=== PATIENT | male | born 1950 | race Caucasian/White ===

== ENCOUNTER 2018-05-04 13:47 | Inpatient (IN) | payer MEDICARE, MEDICAID ==
[~2018-05-04] VITALS: Ht 182.9 cm; Wt 112.2 kg
[2018-05-04 15:34] LABS: BASO % 0.4 % (0.0-1.0); EOS # 0.1 10^3/uL (0.0-0.50); EOS % 0.7 % (0.0-3.0); HEMATOCRIT 44.1 % (42.0-52.0); HEMOGLOBIN 15.1 g/dl (13.5-17.5); LYMPH # 0.7 10^3/uL (1.5-4.5); LYMPH % 6.6 % (24.0-44.0); MEAN CORPUSCULAR HEMOGLOBIN 29.5 pg (27.0-33.0); MEAN CORPUSCULAR HGB CONC 34.2 g/dl (32.0-36.5); MEAN CORPUSCULAR VOLUME 86.3 fl (80.0-96.0); MONO # 0.9 10^3/uL (0.0-0.8); MONO % 8.5 % (0.0-5.0); NEUTROPHILS % 83.3 % (36.0-66.0); PLATELET COUNT, AUTOMATED 308 10^3/uL (150-450); RED BLOOD COUNT 5.11 10^6/uL (4.30-6.10); WHITE BLOOD COUNT 10.8 10^3/uL (4.0-10.0)
[2018-05-04 15:58] LABS: CREATININE FOR GFR 2.34 MG/DL (0.70-1.30); GLOMERULAR FILTRATION RATE 29.5 (>42); POTASSIUM SERUM 3.2 MEQ/L (3.5-5.1)
[2018-05-04 15:59] LABS: ALBUMIN 3.3 GM/DL (3.2-5.2); BILIRUBIN,DIRECT 0.2 MG/DL (0.0-0.2); BILIRUBIN,TOTAL 0.5 MG/DL (0.2-1.0); CALCIUM LEVEL 9.2 MG/DL (8.8-10.2); TOTAL PROTEIN 8.6 GM/DL (6.4-8.2)
--- NOTE | 2018-05-04 16:00 | REP ---
Right knee series: Five views. History: Trauma. Findings: Five views right knee demonstrate nonarticular spurring at the superior pole of the patella at the quadriceps tendon insertion. No fracture or subluxation is seen. Prominent vascular calcifications noted. There is mild diffuse osteopenia. There are surgical clips in the soft tissues medially in the proximal calf. Impression: No bony traumatic abnormality. Vascular calcification. Patellar spurring. Electronically Signed by John Jett MD 05/04/2018 03:52 P
[2018-05-04] MEDS ORDERED: POTASSIUM CHLORIDE 10 MEQ SR TABLET PO ONE (16:15)
--- NOTE | 2018-05-04 16:48 | REP ---
CT brain without contrast: History: Trauma. No comparison study. Findings: Preliminary digital tool clerk radiographs are unremarkable. Bone window settings demonstrate prominent vascular calcification in the distal carotid arteries bilaterally. Visualized paranasal sinuses are clear. No skull fracture or bony calvarial lesion is appreciated. On soft tissue window settings, there is moderate diffuse cerebral atrophy. Small vessel changes are seen in the periventricular white matter. There is no evidence of intracranial hemorrhage. No extra-axial fluid collection is seen. No mass, infarct or midline shift is seen. Impression: Diffuse cerebral atrophy and small vessel changes. Vascular calcification. No skull fracture or acute intracranial abnormality seen. Electronically Signed by John Jett MD 05/04/2018 04:39 P
--- NOTE | 2018-05-04 16:52 | REP ---
CT study of the cervical spine without contrast: History: Trauma. Technique: Helical scanning is acquired and overlapping 2 mm high resolution axial images were generated and reviewed at bone and soft tissue window settings. Coronal and sagittal multiplanar re-formations images are generated. CT findings: There is no evidence of cervical spine element fracture. No skull base fracture is seen. Cervical vertebral body heights are preserved. Alignment is normal. Facet joints are normally aligned bilaterally at each cervical level on multiplanar re-formations images. There is no evidence of intraspinal or paraspinal hematoma. No extra vertebral abnormality is seen. There is moderate degenerative spondylosis change diffusely. This is most pronounced at the C six C7 where there is posterior osteophytic ridging producing moderate central canal stenosis and bilateral neural foraminal encroachment. There is some uncovertebral spurring on the right and C5-6 as well. Impression: Moderate degenerative spondylosis change. Central canal stenosis at C6-7 due to posterior osteophytic ridging and disc bulging. Bilateral neural foraminal narrowing at C6-7 and on the right at C5-6. Otherwise negative CT study of the cervical spine without contrast. No fracture seen. Electronically Signed by John Jett MD 05/04/2018 04:43 P
--- NOTE | 2018-05-04 17:01 | REP ---
CT CHEST WITHOUT IV CONTRAST: CT chest performed without IV contrast. Sagittal and coronal reconstruction images are performed. There is cluster of calcified granulomas in the inferior aspect of the right upper lobe. Calcified right hilar lymph nodes are present. There is interstitial fibrosis in the left lower lobe and lingula. There is also associated bronchiectasis in the left lower lobe and lingula. Heart is upper limits of normal in size. There is no pleural or pericardial effusion. No pneumothorax is seen. No significant adenopathy is seen in the chest. Moderate atherosclerotic calcifications are seen of the thoracic aorta with no contour abnormality or aneurysm. Left hemidiaphragm is elevated. There are degenerative changes of the spine. The visualized osseous structures appear intact. Calcified granulomas are seen in the spleen. There is focal fatty infiltration of the anterior left lobe of the liver. The patient has had a prior cholecystectomy. IMPRESSION: Chronic changes as described above. No acute abnormalities detected. Electronically Signed by Denys Vanessa MD 05/05/2018 08:29 P
[2018-05-04] MEDS ORDERED: METO25TA PO (17:53)
[2018-05-04] MEDS ORDERED: TORS10TA3 PO (17:53)
[2018-05-04] MEDS ORDERED: POTA10PO PO (17:53)
[2018-05-04] MEDS ORDERED: OMEP20TA PO (17:53)
[2018-05-04] MEDS ORDERED: CLON-412 PO (17:53)
[2018-05-04] MEDS ORDERED: FLUO20CA19 PO (17:53)
[2018-05-04] MEDS ORDERED: AMLO5TAB6 PO (17:53)
[2018-05-04] MEDS ORDERED: PRAV40TA2 PO (17:53)
[2018-05-04] MEDS ORDERED: NITR4TASL SL (17:53)
[2018-05-04] MEDS ORDERED: BACI500O8 TOP (17:53)
[2018-05-04] MEDS ORDERED: ACET1TAB55 PO (17:53)
[2018-05-04] MEDS ORDERED: ASPI1TAB PO (17:53)
[2018-05-04] MEDS ORDERED: CARB1TAB20 PO (17:53)
[2018-05-04] MEDS ORDERED: GABA-845 PO (17:53)
[2018-05-04] MEDS ORDERED: HUMA100I3 SC (17:53)
[2018-05-04] MEDS ORDERED: TRES1INJ2 SC (17:53)
[2018-05-04] MEDS ORDERED: VITA1CAP14 PO (17:55)
[2018-05-04] MEDS ORDERED: METO50TA7 PO (17:57)
[2018-05-04] MEDS ORDERED: GLUCAGON FOR INJ 1 MG VIAL (J1610) SC PRN (22:00)
[2018-05-04] MEDS ORDERED: DEXTROSE 50% 50 ML SYRINGE IV PRN (22:00)
[2018-05-04] MEDS ORDERED: GLUCOSE 4 GM CHEW TABLET PO PRN (22:00)
[2018-05-04] MEDS: LEVEMIR (INSULIN DETEMIR) 1 UNITS/0.01ML SC SCH (22:37)
[2018-05-04] MEDS: GABAPENTIN 400 MG CAP PO SCH (22:37)
[2018-05-04] MEDS: carBAMazepine 200 MG TAB PO SCH (22:38)
[2018-05-04] MEDS: HumaLOG INSULIN (NovoLOG) PER UNIT SC SCH (22:42)
--- NOTE | 2018-05-04 22:51 | HPE ---
DATE OF ADMISSION: 05/04/2018 CHIEF COMPLAINT: Repeated falls at home. HISTORY OF THE PRESENT ILLNESS: This is a 68-year-old gentleman with past medical history of diabetes, hypertension, hyperlipidemia, coronary artery disease - status post coronary artery bypass graft (CABG), prior history of prostate disease with history of radiation therapy, prior history of stroke, who presents with chief complaint of multiple falls after recent discharge from rehab. The patient reports that he was recently discharged from [facility] near [place] on Thursday, and since then, he has fallen multiple times. He was, prior to that, hospitalized at [facility] ([facility] He lives in a town that is somewhere between [place] and [place] and is more frequently hospitalized in [place], but came here on this hospitalization. The patient reports he has not done well at home since his discharge from rehab and has fallen at least 4-5 times, hitting his head and multiple extremities. His neighbor went to check on him and was concerned about his safety at home and emergency medical services (EMS) was called. The patient overall feels weak and has decreased appetite. REVIEW OF SYSTEMS: Negative in 14 out of 14 systems except as noted above. PAST MEDICAL HISTORY: As noted above in the history of the present illness. PAST SURGICAL HISTORY: Patient has a history of CABG in 2016 and cholecystectomy. MEDICATIONS: Patient's home medications are: - Tylenol as needed for pain - amlodipine 5 mg daily - aspirin 81 mg daily - carbamazepine 200 mg twice daily - clonidine 0.1 mg twice daily - fluoxetine 60 mg daily - gabapentin 400 mg at bedtime - metolazone 2.5 mg daily - metoprolol 50 mg twice daily - Prilosec 20 mg daily - pravastatin 40 mg daily - torsemide 30 mg twice daily - Tresiba 80 units subcu at bedtime - vitamin D3 10,000 units daily - potassium 40 mEq daily - nitroglycerin 0.4 mg as needed for chest pain - bacitracin topical application daily ALLERGIES: No known drug allergies. SOCIAL HISTORY: The patient is , currently lives alone. He does have one son who lives in [place]. No smoking, alcohol or drugs. He is retired. FAMILY HISTORY: Mother had diabetes. PHYSICAL EXAM: On exam, the patient's vital signs show afebrile to 97.8, blood pressure 142/66, heart rate 91, saturating 91% on room air. In general, he is in no acute distress and pleasant. HEENT Exam: Oropharynx is clear. Neck: Supple. Cardiovascular: Regular rate and rhythm. Systolic ejection murmur appreciated. Lungs: Clear to auscultation bilaterally. Abdomen: Soft, nontender, obese, nondistended. Extremities: No clubbing, cyanosis, edema. Neurologic: He is alert and oriented, follows simple commands. No focal neurologic deficits. Musculoskeletal: Moves all extremities equally. Skin: Intact. Psychiatric: Mood stable. LABS: Reveal a white count of 10.8, hemoglobin 15, platelets of 308. Chemistry: Creatinine of 2.34, potassium of 3.2, sodium of 131. IMAGING: Patient had knee x-ray, head CT, chest CT, and cervical CT of the spine but did not show any acute fractures or acute process. His CT of the spine did show central canal stenosis at C6-C7 due to posterior osteophytic ridging and disc bulging. There is bilateral neural foraminal narrowing at C6-C7 and on the right at C5-C6. Otherwise unremarkable CT. No fracture seen. ASSESSMENT AND PLAN: This is a 68-year-old gentleman with a past medical history of diabetes, hypertension, hyperlipidemia, chronic kidney disease, who presents after recent discharge with multiple falls. PROBLEMS: 1. Fall history. This appears to not be due to any acute process, and the patient likely has impaired gait secondary to advanced age and general deconditioning. I have placed a physical therapy (PT), occupational therapy (OT) consult to assist with rehab placement. I have also placed a social work consult. He likely needs further rehabilitation from his recent hospitalization. 2. Chronic kidney disease. Patient's creatinine is 2.34, but the emergency room spoke with [facility], and this appears to be his baseline. His last creatinine here was done in 2013 and was 1.3. We will need to followup with his primary care doctor, Dr. Monreal, tomorrow to see if this is his baseline. 3. Diabetes. Patient did have elevated sugar to the 350s in the ER but no apparent diabetic ketoacidosis (DKA). He did receive some insulin in the ER. I am going to place him on a sliding scale and half his home dose of Tresiba until we see how much he tolerates in food here in the hospital and then we are able to resume his home insulin dose. In place of Tresiba, actually, I will give him detemir as Tresiba is not formulary here, so, therefore, he will get 40 units subcu nightly instead of 80 units, which will be half his home dose. 4. Deep vein thrombosis (DVT) prophylaxis. Will place him on subcu heparin.
[2018-05-04] MEDS: cloNIDine 0.1 MG TAB PO SCH (23:02)
[2018-05-04] MEDS: METOPROLOL TART 50 MG TAB PO SCH (23:02)
[2018-05-05 00:20] VITALS: BP 118/69
[2018-05-05] MEDS: ACETAMINOPHEN 325 MG TAB PO PRN ×2 (00:35→09:42)
[2018-05-05 05:09] LABS: HEMATOCRIT 40.3 % (42.0-52.0); HEMOGLOBIN 13.7 g/dl (13.5-17.5); MEAN CORPUSCULAR HEMOGLOBIN 29.4 pg (27.0-33.0); MEAN CORPUSCULAR VOLUME 86.5 fl (80.0-96.0); PLATELET COUNT, AUTOMATED 280 10^3/uL (150-450); RED BLOOD COUNT 4.66 10^6/uL (4.30-6.10); WHITE BLOOD COUNT 9.4 10^3/uL (4.0-10.0)
[2018-05-05] MEDS: HEPARIN SOD (PORCINE) 5000 UNITS/ML VIAL SC SCH ×3 (05:38→21:14)
[2018-05-05 05:41] LABS: CALCIUM LEVEL 8.9 MG/DL (8.8-10.2); CREATININE FOR GFR 2.8 MG/DL (0.70-1.30); POTASSIUM SERUM 2.6 MEQ/L (3.5-5.1)
[2018-05-05 05:59] LABS: MAGNESIUM LEVEL 1.8 MG/DL (1.8-2.4)
[2018-05-05] MEDS ORDERED: POTASSIUM CHLORIDE 10 MEQ SR TABLET PO ONE ×3 (06:00→08:30)
[2018-05-05 08:00] VITALS: BP 123/58
[2018-05-05] MEDS: HumaLOG INSULIN (NovoLOG) PER UNIT SC SCH ×4 (08:50→21:14)
[2018-05-05] MEDS ORDERED: metOLazone 2.5 MG TAB PO SCH (09:00)
[2018-05-05] MEDS ORDERED: TORSEMIDE 10 MG TABLET PO SCH (09:00)
[2018-05-05] MEDS ORDERED: amLODIPine 5 MG TAB PO SCH (09:00)
[2018-05-05] MEDS ORDERED: PREVNAR 13 VACCINE SYRINGE (CPT CODE:90670) IM ONE (09:00)
[2018-05-05] MEDS: LEVEMIR (INSULIN DETEMIR) 1 UNITS/0.01ML SC SCH ×2 (09:39→21:13)
[2018-05-05] MEDS: ASPIRIN 81 MG ENTERIC TAB PO SCH (09:40)
[2018-05-05] MEDS: FLUoxetine 20 MG CAP PO SCH (09:40)
[2018-05-05] MEDS: OMEPRAZOLE 20 MG CAP PO SCH (09:40)
[2018-05-05] MEDS: PRAVASTATIN 20 MG TAB PO SCH (09:41)
[2018-05-05] MEDS: cloNIDine 0.1 MG TAB PO SCH ×2 (09:41→21:15)
[2018-05-05] MEDS: carBAMazepine 200 MG TAB PO SCH ×2 (09:41→21:00)
[2018-05-05] MEDS: METOPROLOL TART 50 MG TAB PO SCH ×2 (09:41→21:15)
--- NOTE | 2018-05-05 10:47 | REP ---
Urinary tract sonogram: History: Acute kidney insufficiency. Comparison: No comparison study. Findings: Scanning at the level of the urinary bladder shows hypoechoic mucoid or cellular material in the dependent portion of the bladder lumen. No other abnormality. Renal cortical echogenicity pattern is normal bilaterally and contours are smooth. There is no evidence of hydronephrosis, cyst, mass, or calculus in either kidney. The right kidney measures 11.2 x 6.8 x 6.7 cm. Left renal dimensions are 13.2 x 5.7 x 5.4 cm. Impression: Proteinaceous debris layering in the dependent portion of the urinary bladder. Otherwise negative urinary tract sonography. Electronically Signed by John Jett MD 05/05/2018 10:38 A
[2018-05-05] MEDS: NS 1,000 ML IV SCH ×2 (11:01→20:15)
[2018-05-05 12:00] VITALS: BP 106/60
[2018-05-05 12:47] LABS: CALCIUM LEVEL 8.8 MG/DL (8.8-10.2); CREATININE FOR GFR 3.18 MG/DL (0.70-1.30); GLOMERULAR FILTRATION RATE 20.7 (>42); POTASSIUM SERUM 3.6 MEQ/L (3.5-5.1)
[2018-05-05 13:49] LABS: AMORPHOUS SEDIMENT SMALL (NEGATIVE); APPEARANCE, URINE TURBID (CLEAR); BACTERIA, URINE AUTO 3+ (NEGATIVE); BILIRUBIN, URINE AUTO NEGATIVE (NEGATIVE); BLOOD, URINE BLOOD 3+ (NEGATIVE); COLOR, URINE AMBER (YELLOW); GLUCOSE, URINE (UA) AUTO 1+ mg/dL (NEGATIVE); KETONE, URINE AUTO NEGATIVE (NEGATIVE); LEUKOCYTE ESTERASE, URINE AUTO 3+ (NEGATIVE); NITRITE, URINE AUTO NEGATIVE (NEGATIVE); PROTEIN, URINE AUTO 2+ mg/dL (NEGATIVE); RBC, URINE AUTO TNTC /HPF (0-3); SPECIFIC GRAVITY URINE AUTO 1.017 (1.002-1.035); SQUAMOUS EPITHELIAL CELL UR AU 0 /HPF (0-6); UROBILINOGEN, URINE AUTO 0.2 mg/dL (0.0-2.0); WBC, URINE AUTO TNTC /HPF (0-3)
[2018-05-05 14:17] LABS: CHLORIDE,RANDOM URINE 29 MEQ/L; POTASSIUM RANDOM URINE 43.9 MEQ/L; SODIUM,RANDOM URINE 38 MEQ/L
[2018-05-05 14:34] LABS: CALCIUM LEVEL 8.5 MG/DL (8.8-10.2); CREATININE FOR GFR 3.2 MG/DL (0.70-1.30); GLOMERULAR FILTRATION RATE 20.5 (>42); POTASSIUM SERUM 3.6 MEQ/L (3.5-5.1)
[2018-05-05 16:00] VITALS: BP 130/68
--- NOTE | 2018-05-05 16:41 | REP ---
Right ribs five views: There is no right rib fracture or other rib abnormality. There is no right pneumothorax or hemothorax. There are sternotomy wires. Impression: Negative right rib series. Electronically Signed by Denys Mitchell MD 05/05/2018 04:33 P
[2018-05-05] MEDS: cefTRIAXone SOD 1 GM in D5W MINI-BAG PLUS 50 ML IV SCH (17:23)
--- NOTE | 2018-05-05 18:52 | IPNPDOC ---
Text Note Date of Service The patient was seen on 05/05/18. NOTE Subjective: Patient is a 68-year-old male who presented to the hospital after a fall in which he says he lost consciousness. Patient had a recent hospitalization after a cerebrovascular accident. Patient was sent to subacute rehabilitation for rehabilitation. Patient says that since he was at home he was dealing with some nausea, vomiting, and diarrhea. He has not been eating and d rinking that well because of this. He had felt weak again and had fallen while walking with his walker. He says he fell on his right side and hit his head. States he lost consciousness for a few seconds. He says he remembers the entire event. He did not feel dizzy prior to the event. He did not lose bowel or bladder function. Today patient says he is feeling better. Says the nausea, vomiting, and diarrhea has improved. Patient is a history of chronic kidney disease and was found to have a potassium of 2.6 on admission his potassium has since been repleted. Review of systems General: Patient denies fevers HEENT: Patient denies headaches Cardiovascular: Patient denies chest pain Respiratory: Patient denies shortness of breath, cough GI: Patient denies abdominal pain, nausea, vomiting, diarrhea : Patient denies pain or difficulty with urination Neurological: Patient denies numbness or tingling in extremities Extremities: Pain on his right knee where he fell. Objective: Vitals: (see below) General: No acute distress, laying comfortably in bed. HEENT: Normocephalic, atraumatic, moist mucous membranes. Neck: No JVD or lymphadenopathy Cardiac: RRR, No murmurs Pulm: Clear to auscultation b/l. No wheezing, rhonchi Abd: NT/ND + BS Ext: Scabbed wounds on the guerin on the right leg. There is trace pitting edema. Distal pulses intact. Labs (see below) Images: A knee x-ray performed on 05/04/2018 showed no bony traumatic abnormality, vascular calcification, and patellar spurring. A head CT without contrast performed on 05/04/2018 showed diffuse cerebral atrophy and small vessel changes, vascular calcification, no skull fracture or acute intracranial abnormality. A chest CT performed on 05/04/2018 showed chronic changes with no acute abnormalities. A cervical spine CT performed on 05/04/2018 showed moderate degenerative spondylosis changes, central canal stenosis C6-7 due to posterior osteophytic ridging and disc bulging. Bilateral neural foraminal narrowing at C6-7 and on t he right at C5-6. Otherwise negative CT study of the cervical spine with no fractures seen. A renal ultrasound performed on 6018 showed proteinaceous debris layering the dependent portion of the urinary bladder otherwise negative urinary tract sonography. A rib series on the right side performed on 05/05/2017 was negative for fractures. Assessment/Plan 1. Recent Fall . Patient does have a history of stroke with mild right sided hemiparesis at baseline.. Fall likely a result of patient's probable gastroenteritis, patient was most likely dehydrated which made him generally weak. Patient is already weak at baseline due to the stroke and deconditioning. Patient will work with physical therapy and will most likely benefit from more subacute rehabilitation. 2. Chronic kidney disease. Patient may have acute kidney injury on top of his chronic kidney disease. Patient's creatinine was 2.34 on admission. The emergency room apparently spoke with the rehabilitation which said that was more like his baseline. Patient was vomiting and having diarrhea which could cause dehydration which could exacerbate his already underlying chronic kidney disease. 3. Diabetes. Patient is currently on sliding scale. 4. Hypertension. We'll continue the patient's home medications. 5. History of CVA. We will continue with the patient's statin, aspirin. 6. GERD. We will continue the patient's home medication. 7. Depression. We'll continue patient's fluoxetine. 8. Urinary tract infection. Based on the patient's urinary analysis which has 3+ leukocyte esterase and too numerous to count white blood cells with 3+ bacteria patient was started on Rocephin patient had a leukocytosis at 10.8 on admission. We'll continue to monitor. We will await culture results. DVT prophy: Heparin 5000 units every 8 hours Dispo: Pending clinical improvement and clearance from physical therapy VS,Ashley, I+O VS, Ashley, I+O Laboratory Tests 05/05/18 04:23 Red Blood Count 4.66, Mean Corpuscular Volume 86.5, Mean Corpuscular Hemoglobin 29.4, Mean Corpuscular Hemoglobin Concent 34.0, Red Cell Distribution Width 13.8, Calcium Level 8.9 05/05/18 11:56 Calcium Level 8.8 05/05/18 13:51 Calcium Level 8.5 L Vital Signs Date Time Temp Pulse Resp B/P (MAP) Pulse Ox O2 Delivery O2 Flow Rate FiO2 05/05/18 16:00 98.3 71 19 130/68 (88) 91 05/05/18 00:00 Room Air I&O- Last 24 Hours up to 6 AM 05/05/18 06:00 Intake Total 0 ml Output Total 0 ml Balance 0 ml GME ATTESTATION GME ATTESTATION My faculty preceptor for this patient encounter was physically present during the encounter and was fully available. All aspects of the patient interview, examination, medical decision making process, and medical care plan development were reviewed and approved by the faculty preceptor. The faculty preceptor is aware and concurs with the plan as stated in the body of this note and will attest to such by his/her cosignature. JOVAN AMAYA DO May 05, 2018 18:52 MENDEZ CURIEL MD May 12, 2018 17:17
[2018-05-05 20:00] VITALS: BP 130/63
[2018-05-05] MEDS: GABAPENTIN 400 MG CAP PO SCH (21:00)
[2018-05-06 04:00] VITALS: BP 134/87
--- NOTE | 2018-05-06 05:35 | CR ---
DATE OF CONSULTATION: 05/05/2018 REQUESTING PHYSICIAN: Dr. Ash Mcmahon REASON FOR CONSULTATION: Acute kidney injury superimposed on chronic kidney disease (CKD) III. HISTORY OF PRESENT ILLNESS: The patient is a 68-year-old male with a past medical history of insulin-dependent diabetes mellitus, hypertension, dyslipidemia, coronary artery disease status post open heart surgery (the patient reports history of aortic valve surgery; however, his records state he had a coronary artery bypass grafting (CABG)), prior history of a stroke. He was admitted on May 04, 2018 with complaints of multiple recent falls at home. Apparently, he was recently discharged from a rehabilitation center within the past week and since then has been feeling dizzy and having recurrent falls. He reports some poor oral intake and says he has not done well at home since he left rehabilitation. He states that he has a visiting nurse come and help him with medications but that he has not been eating too well. On admission, patient was noted to have hypokalemia, metabolic alkalosis, and kidney injury. Nephrology consultation was subsequently requested. PAST MEDICAL HISTORY AND PAST SURGICAL HISTORY: 1. Hypertension. 2. Dyslipidemia. 3. Neuropathy. 4. Insulin-dependent diabetes. 5. Congestive heart failure. 6. Coronary artery disease. 7. Gastroesophageal reflux disease (GERD). 8. Questionable coronary artery bypass grafting (CABG) versus aortic valve replacement. 9. History of cholecystectomy. HOME MEDICATIONS: Reviewed and include: - Tylenol - amlodipine - aspirin - carbamazepine - clonidine - fluoxetine - gabapentin - metolazone 2.5 mg by mouth daily - metoprolol - Prilosec - pravastatin - torsemide 30 mg by mouth twice a day - Tresiba - vitamin D - potassium 40 mEq by mouth daily ALLERGIES: No known drug allergies. SOCIAL HISTORY: He lives alone. A visiting nurse comes to his home. He denies smoking, alcohol and drugs. FAMILY HISTORY: He reports diabetes. REVIEW OF SYSTEMS: CONSTITUTIONAL: The patient reports fatigue and weak feeling. HEENT: Eyes: He denies visual changes or tearing. ENT: He denies tinnitus or rhinorrhea. CARDIAC: He reports a history of coronary artery disease and some sort of open-heart surgery. He denies palpitations or chest pain. He reports congestive heart failure. PULMONARY: He denies shortness of breath or cough. GASTROINTESTINAL (GI): He denies vomiting or diarrhea. He does report poor oral intake. GENITOURINARY: He denies dysuria or hematuria. MUSCULOSKELETAL: He reports recurrent falls. He denies gout. ENDOCRINE: He reports insulin-dependent diabetes. He denies polyuria or polydipsia. SKIN: He denies any new rashes or pruritus. HEMATOLOGIC: He denies easy chronic anticoagulant use or easy bleeding. The remainder of review of systems is as per history of present illness. PHYSICAL EXAMINATION: VITAL SIGNS: Temperature 98.6, pulse 71, respiratory rate 19, blood pressure 130/63, saturating 97% on room air. Intake was 1630, urine output is 600 mL. Weight on the bed scale today is 108.2 kg. GENERAL: The patient is seen lying in bed comfortable in no acute distress, awake and oriented. HEENT: Tongue is moist. Neck is supple. Jugular veins are not elevated. CARDIAC: Regular rate and rhythm. S1, S2. LUNGS: Lungs are clear to auscultation bilaterally. No crackles, rales or wheeze. ABDOMEN: The abdomen is soft and nontender. There are bowel sounds. EXTREMITIES: The extremities are negative for edema. LABORATORY DATA: White count 9.4, hemoglobin 13.7, platelets 280. Sodium 131, potassium 3.6, bicarbonate 32, BUN 70, creatinine 3.2 from 2.3 on admission. Urine 2+ protein and 3+ blood, too numerous to count white blood cell (WBC) and red blood cell and 3+ bacteria. IMAGING: Renal ultrasound shows normal size kidneys with no hydronephrosis. CT chest May 04, 2018 noncontrast shows no effusions and some cluster of calcified granulomas in the right upper lobe. INPATIENT MEDICATIONS: His torsemide and metolazone have been discontinued. He is receiving: - ceftriaxone 1 gram intravenous (IV) daily - normal saline at 100 mL per hour - Norvasc 5 mg by mouth daily - aspirin 81 mg by mouth daily - carbamazepine 200 mg by mouth twice a day - clonidine 0.1 mg by mouth twice a day - Prozac 60 mg by mouth daily - gabapentin 400 mg by mouth at bedtime - heparin 5000 units subcutaneous every 8 hours - insulin - metoprolol 50 mg by mouth twice a day - Prilosec 20 mg by mouth daily - potassium supplementation - he received several doses of potassium supplementation - pravastatin 40 mg by mouth daily PROBLEMS: 1. Acute kidney injury, nonoliguric. I received records from patient's primary doctor, Sunny Monreal in regards to his historical baseline creatinine. Apparently over the past six months his creatinine has fluctuated from 1.1 to 1.9. It looks like he has been having recurrent acute kidney injuries. Presently on this admission creatinine has worsened from 2.3 to 3.2. I believe part of the issue is dehydration related to his poor oral intake and the use of significant diuretic including daily metolazone in addition to torsemide. His laboratories showed hemoconcentration, hypokalemia, metabolic alkalosis (signs of over diuresis), his metolazone and torsemide are held. He is receiving gentle intravenous (IV) fluid normal saline at 100 mL per hour. He is not suitable for angiotensin-converting enzyme (WANDA) or angiotensin II receptor jose cruz (ARB). His urinalysis (UA) was suggestive of a urinary tract infection (UTI). In addition, there was also blood and protein. I have ordered serologic workup to complete his evaluation. His renal imaging was negative for obstruction. 2. Metabolic alkalosis. It is likely due to overdiuresis and contraction alkalosis from use of daily torsemide plus metolazone. His diuretics are held. He is receiving gentle intravenous (IV) fluids. His alkalosis is resolving. 3. Hypokalemia. It is from combination torsemide and metolazone. Diuretics are held. He is receiving some gentle potassium supplementation. 4. Urinary tract infection. His urine culture is pending. He is on empiric antimicrobial per the primary team. 5. History of congestive heart failure. Given that patient is on daily torsemide and metolazone he likely does have a history of congestive heart failure (CHF) and I have requested an echocardiogram. Okay to continue low dose intravenous (IV) fluids at present. 6. Hypertension. I am holding his amlodipine for now because he has had several soft blood pressure readings in the past 24 hours including systolic less than 100. Given his acute kidney injury, borderline hypotension can worsen the same. He can continue with clonidine and metoprolol. 7. Hyponatremia. It is very mild, possibly hypovolemic hyponatremia. Diuretics are on hold. He is receiving gentle normal saline. We will follow the renal panel. Thank you for involving me in the care of Mr. Rosario. I will be happy to follow him along with you.
[2018-05-06] MEDS: HEPARIN SOD (PORCINE) 5000 UNITS/ML VIAL SC SCH ×3 (05:51→21:08)
[2018-05-06] MEDS: ACETAMINOPHEN 325 MG TAB PO PRN (05:51)
[2018-05-06 06:09] LABS: HEMATOCRIT 35.9 % (42.0-52.0); HEMOGLOBIN 12.3 g/dl (13.5-17.5); MEAN CORPUSCULAR HEMOGLOBIN 29.5 pg (27.0-33.0); MEAN CORPUSCULAR HGB CONC 34.3 g/dl (32.0-36.5); MEAN CORPUSCULAR VOLUME 86.1 fl (80.0-96.0); PLATELET COUNT, AUTOMATED 229 10^3/uL (150-450); RED BLOOD COUNT 4.17 10^6/uL (4.30-6.10); WHITE BLOOD COUNT 10.1 10^3/uL (4.0-10.0)
[2018-05-06 06:27] LABS: CALCIUM LEVEL 8.2 MG/DL (8.8-10.2); CREATININE FOR GFR 2.42 MG/DL (0.70-1.30); GLOMERULAR FILTRATION RATE 28.4 (>42)
[2018-05-06] MEDS ORDERED: POTASSIUM CHLORIDE 10 MEQ SR TABLET PO ONE (07:00)
[2018-05-06 08:00] VITALS: BP 131/61
[2018-05-06 08:00] LABS: TOTAL PROTEIN 6.3 GM/DL (6.4-8.2)
[2018-05-06] MEDS: ASPIRIN 81 MG ENTERIC TAB PO SCH (08:58)
[2018-05-06] MEDS: carBAMazepine 200 MG TAB PO SCH ×2 (08:58→20:19)
[2018-05-06] MEDS: PRAVASTATIN 20 MG TAB PO SCH (08:58)
[2018-05-06] MEDS: METOPROLOL TART 50 MG TAB PO SCH ×2 (08:59→20:21)
[2018-05-06] MEDS: OMEPRAZOLE 20 MG CAP PO SCH (08:59)
[2018-05-06] MEDS: cloNIDine 0.1 MG TAB PO SCH ×2 (08:59→20:22)
[2018-05-06] MEDS: HumaLOG INSULIN (NovoLOG) PER UNIT SC SCH ×4 (09:01→20:18)
[2018-05-06] MEDS: FLUoxetine 20 MG CAP PO SCH (09:01)
[2018-05-06] MEDS: LEVEMIR (INSULIN DETEMIR) 1 UNITS/0.01ML SC SCH ×2 (09:02→20:16)
--- NOTE | 2018-05-06 11:07 | IPNPDOC ---
Text Note Date of Service The patient was seen on 05/06/18. NOTE Subjective: Patient is a 68-year-old male who presented to the hospital after a fall. Patient was initially thought to have a gastroenteritis which caused dehydration due to poor oral intake. Patient was also found to have a urinary tract infection in the hospital. Patient is currently being treated for the urinary tract infection. Nephrology has seen the patient and is helping treat the patient. Patient was diagnosed with acute kidney injury according to nephrology who is able to obtain patient's primary care records which did show that his creatinine on admission was elevated compared to the baseline that his primary care physician. Patient is clinically improving and his labs are improving. Patient says he is feeling well. Patient had a bowel movement this morning. Patient was eating breakfast without difficulty. Patient has been able to maintain adequate oral intake. Patient received 1 L of normal saline via IV so far during his hospitalization. Patient was found to have orthostatic hypotension when taken by physical therapy yesterday. Patient so far today has not been orthostatic. Review of systems General: Patient denies fevers HEENT: Patient denies headaches Cardiovascular: Patient denies chest pain Respiratory: Patient denies shortness of breath, cough GI: Patient denies abdominal pain, nausea, vomiting, diarrhea : Patient has a Poole catheter in place. He says this is not bothering him. Neurological: Patient denies numbness or tingling in extremities Extremities: Patient denies swelling or pain in extremities Objective: Vitals: (see below) General: No acute distress, laying comfortably in bed. HEENT: Normocephalic, atraumatic, moist mucous membranes. Neck: No JVD or lymphadenopathy Cardiac: RRR, No murmurs Pulm: Clear to auscultation b/l. No wheezing, rhonchi Abd: NT/ND + BS Ext: Trace edema in bilateral lower extremities. Radial pulses 2/4 bilaterally. Dorsalis pedis and posterior tibial pulses 1/4 bilaterally Labs (see below) Images: No new imaging studies have been performed Assessment/Plan 1. Fall history. Patient is continuing to work with physical therapy. We will continue to monitor. 2. Acute kidney injury. Nephrology was able to get records from the patient's primary care which did show the patient's a sliding creatinine was lower than the patient's creatinine on admission. Patient's creatinine today was 2.42 which is down from 3.2 yesterday. Patient is continuing to improve. We will continue to monitor the patient. We are holding the patient's diuretics. 3. Diabetes. Patient is currently on sliding scale 4. Hypertension. We are continuing the patient's home medications. 5. History of CVA. We are continuing the patient's statin and aspirin. 6. Gastroesophageal reflux disease. We are continue patient's home medication. 7. Depression. We are continuing patient's fluoxetine. 8. Urinary tract infection. Patient does have a Poole catheter in place patient is on ceftriaxone and we'll continue to await culture results. DVT prophy: 5000 units of heparin every 8 hours Dispo: Pending clinical improvement in clearance from physical therapy VS,Ashley, I+O VS, Ashley, I+O Laboratory Tests 05/05/18 11:56 Calcium Level 8.8 05/05/18 13:51 Calcium Level 8.5 L 05/06/18 05:33 Calcium Level 8.2 L, Red Blood Count 4.17 L, Mean Corpuscular Volume 86.1, Mean Corpuscular Hemoglobin 29.5, Mean Corpuscular Hemoglobin Concent 34.3, Red Cell Distribution Width 13.8 Vital Signs Date Time Temp Pulse Resp B/P (MAP) Pulse Ox O2 Delivery O2 Flow Rate FiO2 05/06/18 08:59 71 131/61 05/06/18 08:00 98.1 18 94 05/05/18 00:00 Room Air I&O- Last 24 Hours up to 6 AM 05/06/18 06:00 Intake Total 2220 ml Output Total 1294 ml Balance 926 ml GME ATTESTATION GME ATTESTATION My faculty preceptor for this patient encounter was physically present during the encounter and was fully available. All aspects of the patient interview, examination, medical decision making process, and medical care plan development were reviewed and approved by the faculty preceptor. The faculty preceptor is aware and concurs with the plan as stated in the body of this note and will attest to such by his/her cosignature. JOVAN AMAYA DO May 06, 2018 11:07
[2018-05-06 12:00] VITALS: BP 163/77
[2018-05-06 13:36] LABS: ALBUMIN 3.15 GM/DL (3.29-5.55); ALPHA-1-GLOBULIN % 5.5 % (2.9-4.9); ALPHA-1-GLOBULINS 0.35 GM/DL (0.17-0.41); ALPHA-2-GLOBULINS 0.95 GM/DL (0.42-0.99); ALPHA-2-GLOBULINS % 15.1 % (7.1-11.8); BETA-1-GLOBULINS 0.44 GM/DL (0.28-0.60); BETA-2-GLOBULINS % 7.9 % (3.2-6.5); GAMMA GLOBULIN % 14.5 % (11.1-18.8); GAMMA GLOBULINS 0.91 GM/DL (0.65-1.58)
[2018-05-06 16:00] VITALS: BP 149/65
[2018-05-06] MEDS: cefTRIAXone SOD 1 GM in D5W MINI-BAG PLUS 50 ML IV SCH (17:27)
[2018-05-06 19:50] VITALS: BP 145/71
[2018-05-06] MEDS: GABAPENTIN 400 MG CAP PO SCH (20:18)
--- NOTE | 2018-05-06 20:55 | IPN ---
DATE: 05/06/2018 SUBJECTIVE: Patient seen and examined this morning, sitting out of bed to the chair. Reports he did not sleep so well last night, but denies any specific complaints aside from pain related to his falls at home. He has a Poole catheter in place and is off intravenous (IV) fluids and reports good oral intake. VITAL SIGNS: Temperature 98.8, pulse 72, respiratory rate 18, blood pressure 149/65, saturating 96% on room air. Intake yesterday was 1979. Urine output yesterday was not fully recorded due to incontinent voids. Urine output today is 1925. Weight on the bed scale is 110 kg. General: The patient is seen sitting in a chair out of bed, awake, alert, and comfortable, in no acute distress. Extraocular muscles are intact. His tongue is moist. His neck is supple. His jugular veins are not elevated. Cardiac: S1, S2, regular rate and rhythm. Lungs: Clear to auscultation bilaterally. No wheezing, crackles, or rales. Abdomen: Soft and nontender. There are bowel sounds. Genitourinary: Shows a Poole catheter with somewhat cloudy urine in the tubing. Extremities: His lower extremities show trace edema up to the mid guerin. Neurologic: He is interactive and conversational, cooperative with physical exam. LABORATORY: White count 10.1, hemoglobin 12.3, platelets 229. Sodium 132, potassium 3.0, bicarbonate 34, BUN 62, creatinine 2.4. Microbiology: No new results. INPATIENT MEDICATIONS: He continues on ceftriaxone. He is noted to be discontinued off of IV fluids. He received a dose of potassium 40 mEq by mouth times one. Remainder of medications are unchanged from prior. PROBLEMS: 1. Nonoliguric acute kidney injury. Patient's baseline creatinine in the past 6 months has fluctuated from 1.1 to 1.9 on review of labs received from his primary care physician. It looks like he has been having recurrent acute kidney injuries, possibly related to the recent hospitalizations he has had. Over the course of this admission, his renal function is improving. Creatinine is down to 2.4 today. His acute kidney injury is likely related to dehydration related to poor oral intake with concomitant use of diuretic. His diuretics have been held, and his renal function is improving. He is tolerating oral intake well and is off of IV fluids. In view of recently fluctuating renal function, I did order serologies, which are pending. 2. Urinary tract infection. Urinalysis prior to the Poole catheter placement was suspicious for urinary tract infection (UTI); however, I do not see any urine culture. This is being ordered. He is on empiric antimicrobial per the primary team. 3. Probable history of congestive heart failure. Given that the patient at home is on combination torsemide and metolazone, he likely has cardiomyopathy, but there is no echo available for review. We will keep a close eye on his volume and respiratory status. 4. Hypokalemia. The patient is receiving oral potassium supplementation. Hypokalemia is likely related to metabolic alkalosis and his prior use of diuretics.
--- NOTE | 2018-05-06 22:03 | ECHO ---
DATE OF PROCEDURE: 05/06/2018 REFERRING PHYSICIAN: Jes Mejía MD INDICATION: Heart failure, unspecified. HEIGHT: 183 cm WEIGHT: 108 kg 2D MEASUREMENTS: Left atrium: 4.9 cm Aortic root: 3.1 cm Ventricular septum: 1.12 cm Posterior wall: 1.14 cm Left ventricle diastole: 5.7 cm Left atrial volume index: 29 Inferior vena cava: 1.5 cm with marked respiratory variation. Central venous pressure estimated to be 5 mmHg. MITRAL ANNULAR TISSUE DOPPLER: E prime lateral: 8.5 cm/s E prime septal: 4.0 cm/s DOPPLER MEASUREMENTS: Aortic valve velocity: 205 cm/s LVOT velocity: 88.0 cm/s LVOT VTI: 16.9 cm/s Mitral E velocity: 105 cm/s Mitral A velocity: 126 cm/s Mitral deceleration time: 271 ms Very mild tricuspid regurgitation. DESCRIPTION: Rhythm was sinus. This was a moderately technically difficult echocardiogram. No pericardial effusion. CONCLUSIONS: 1. Mild eccentric left ventricle hypertrophy. Normal regional LV wall motion and wall thickening. Normal left ventricle (LV) systolic function. Left ventricular ejection fraction (LVEF) of 60% by visual estimate. Grade 1 left ventricle (LV) diastolic dysfunction (impaired relaxation filling pattern). 2. Mild left atrial dilatation. 3. Mild mitral annular calcification. No mitral regurgitation detected. 4. Well seated normally functioning aortic valve bioprosthesis. 4. Moderately technically difficult echocardiogram.
[2018-05-06 23:46] VITALS: BP 155/72
[2018-05-07 03:01] LABS: BACTERIA, URINE AUTO 2+ (NEGATIVE); RBC, URINE AUTO 32 /HPF (0-3); SQUAMOUS EPITHELIAL CELL UR AU 0 /HPF (0-6); URIC ACID CRYSTALS SMALL; WBC, URINE AUTO TNTC /HPF (0-3)
[2018-05-07 03:19] LABS: TOTAL PROTEIN 24 HOUR URINE 1542.9 MG/24HR (50-150); URINE TOTAL PROTEIN 83.4 MG/DL (0-12)
[2018-05-07 04:00] VITALS: BP 151/79
[2018-05-07] MEDS: HEPARIN SOD (PORCINE) 5000 UNITS/ML VIAL SC SCH ×3 (05:27→21:04)
[2018-05-07 05:36] LABS: HEMATOCRIT 34.8 % (42.0-52.0); MEAN CORPUSCULAR HEMOGLOBIN 29.4 pg (27.0-33.0); MEAN CORPUSCULAR HGB CONC 34.5 g/dl (32.0-36.5); MEAN CORPUSCULAR VOLUME 85.3 fl (80.0-96.0); PLATELET COUNT, AUTOMATED 220 10^3/uL (150-450); RED BLOOD COUNT 4.08 10^6/uL (4.30-6.10)
[2018-05-07 05:55] LABS: TOTAL PROTEIN,RANDOM URINE 83.4 MG/DL (0.0-12.0); URINE TOTAL PROTEIN 83.4 MG/DL (0-12); URINE VOLUME 1850 ML
[2018-05-07 06:05] LABS: CALCIUM LEVEL 8.4 MG/DL (8.8-10.2); CREATININE FOR GFR 1.75 MG/DL (0.70-1.30); GLOMERULAR FILTRATION RATE 41.2 (>42); POTASSIUM SERUM 2.9 MEQ/L (3.5-5.1)
[2018-05-07] MEDS ORDERED: POTASSIUM CHLORIDE 10 MEQ SR TABLET PO ONE ×2 (06:30→08:45)
[2018-05-07 07:53] VITALS: BP 165/80
[2018-05-07] MEDS: ASPIRIN 81 MG ENTERIC TAB PO SCH (08:41)
[2018-05-07] MEDS: FLUoxetine 20 MG CAP PO SCH (08:41)
[2018-05-07] MEDS: cloNIDine 0.1 MG TAB PO SCH ×2 (08:41→21:01)
[2018-05-07] MEDS: PRAVASTATIN 20 MG TAB PO SCH (08:41)
[2018-05-07] MEDS: OMEPRAZOLE 20 MG CAP PO SCH (08:41)
[2018-05-07] MEDS: METOPROLOL TART 50 MG TAB PO SCH ×2 (08:42→21:02)
[2018-05-07] MEDS: carBAMazepine 200 MG TAB PO SCH ×2 (08:42→21:01)
[2018-05-07] MEDS: HumaLOG INSULIN (NovoLOG) PER UNIT SC SCH ×4 (08:42→21:03)
[2018-05-07] MEDS: LEVEMIR (INSULIN DETEMIR) 1 UNITS/0.01ML SC SCH ×2 (08:43→21:03)
[2018-05-07 10:00] VITALS: BP 202/93
[2018-05-07 10:32] LABS: HEPATITIS B SURFACE ANTIGEN NEGATIVE (NEGATIVE)
[2018-05-07] MEDS: amLODIPine 5 MG TAB PO SCH ×2 (12:04→21:01)
[2018-05-07] MEDS: aMILoride 5 MG TAB PO SCH (12:37)
--- NOTE | 2018-05-07 13:36 | IPNPDOC ---
Text Note Date of Service The patient was seen on 05/07/18. NOTE Subjective: Patient is a 68-year-old male who presented to the hospital after a fall. Patient was found have a urinary tract infection. This is currently being treated. Patient is doing better today. Patient will need to work with physical therapy in order to get stronger. Patient states he feels much better than when he first came into the hospital. Review of systems General: Patient denies fevers HEENT: Patient denies headaches Cardiovascular: Patient denies chest pain Respiratory: Patient denies shortness of breath, cough GI: Patient denies abdominal pain, nausea, vomiting, diarrhea : Patient denies pain or difficulty with urination Neurological: Patient denies numbness or tingling in extremities Extremities: Patient denies swelling or pain in extremities Objective: Vitals: (see below) General: No acute distress, laying comfortably in bed. HEENT: Normocephalic, atraumatic, moist mucous membranes. Neck: No JVD or lymphadenopathy Cardiac: RRR, No murmurs Pulm: Clear to auscultation b/l. No wheezing, rhonchi Abd: NT/ND + BS Ext: No edema or cyanosis. Radial pulses 2/4 bilaterally. Dorsalis pedis and posterior tibial 1/4 bilateral. Labs (see below) Images: No new imaging performed. Assessment/Plan 1. Fall history. Patient is continuing to work with physical therapy and we will continue to monitor. 2. Acute kidney injury. Patient's creatinine continues to improve patient's creatinine today is 1.75 which is down from 2.42. 3. Diabetes. Patient is currently on sliding scale. 4. Hypertension. We're continue patient's home medications. Patient has had some higher blood pressures and we will continue to monitor. 5. History of CVA. We are continuing patient's aspirin and statin. 6. Gastroesophageal reflux disease. We are continuing the patient's home med ication. 7. Depression. We are continuing the patient's fluoxetine. 8. Urinary tract infection. Patient has a Poole catheter in place in patient is currently on ceftriaxone. DVT prophy: 5000 units of heparin every 8 hours Dispo: Pending clinical improvement and clearance from physical therapy. VS,Fishbone, I+O VS, Fishbone, I+O Laboratory Tests 05/07/18 05:19 Red Blood Count 4.08 L, Mean Corpuscular Volume 85.3, Mean Corpuscular Hemoglobin 29.4, Mean Corpuscular Hemoglobin Concent 34.5, Red Cell Distribution Width 13.8, Calcium Level 8.4 L Vital Signs Date Time Temp Pulse Resp B/P (MAP) Pulse Ox O2 Delivery O2 Flow Rate FiO2 05/07/18 12:04 90 189/89 05/07/18 10:00 97.7 17 96 05/05/18 00:00 Room Air I&O- Last 24 Hours up to 6 AM 05/07/18 06:00 Intake Total 1130 ml Output Total 2400 ml Balance -1270 ml GME ATTESTATION GME ATTESTATION My faculty preceptor for this patient encounter was physically present during the encounter and was fully available. All aspects of the patient interview, examination, medical decision making process, and medical care plan development were reviewed and approved by the faculty preceptor. The faculty preceptor is aware and concurs with the plan as stated in the body of this note and will attest to such by his/her cosignature. JOVAN AMAYA DO May 07, 2018 13:36
[2018-05-07 14:00] VITALS: BP 163/75
[2018-05-07 14:21] LABS: ANTINUCLEAR ANTIBODIES DIRECT Negative (Negative)
[2018-05-07] MEDS: cefTRIAXone SOD 1 GM in D5W MINI-BAG PLUS 50 ML IV SCH (17:18)
[2018-05-07] MEDS: GABAPENTIN 400 MG CAP PO SCH (21:01)
[2018-05-07] MEDS: ACETAMINOPHEN 325 MG TAB PO PRN (21:02)
[2018-05-07 22:00] VITALS: BP 130/60
[2018-05-08 05:29] LABS: HEMATOCRIT 35.8 % (42.0-52.0); MEAN CORPUSCULAR HEMOGLOBIN 29.2 pg (27.0-33.0); MEAN CORPUSCULAR HGB CONC 33.5 g/dl (32.0-36.5); MEAN CORPUSCULAR VOLUME 87.1 fl (80.0-96.0); PLATELET COUNT, AUTOMATED 235 10^3/uL (150-450); RED BLOOD COUNT 4.11 10^6/uL (4.30-6.10); WHITE BLOOD COUNT 8.1 10^3/uL (4.0-10.0)
[2018-05-08] MEDS: HEPARIN SOD (PORCINE) 5000 UNITS/ML VIAL SC SCH ×3 (05:39→21:19)
[2018-05-08 05:52] LABS: CALCIUM LEVEL 8.6 MG/DL (8.8-10.2); CREATININE FOR GFR 1.48 MG/DL (0.70-1.30); POTASSIUM SERUM 3.3 MEQ/L (3.5-5.1)
[2018-05-08 06:00] VITALS: BP 130/62
[2018-05-08] MEDS ORDERED: POTASSIUM CHLORIDE 10 MEQ SR TABLET PO ONE (07:00)
--- NOTE | 2018-05-08 07:52 | IPN ---
DATE OF SERVICE: 05/07/2018 SUBJECTIVE: Patient seen and examined this morning, sitting out of bed to the chair. Reports that he ambulated around the room today with the walker and denies shortness of breath or dyspnea on exertion. He states that when he ambulated today he did not have lightheadedness or dizziness. Comparatively, while he was at home when he was ambulating, he would become very dizzy and lightheaded and fall. He continues with the Poole catheter. His renal function is improving. VITAL SIGNS: Temperature 97.6, pulse 67, respiratory rate 17, blood pressure 163/75, saturating 97% on room air. Intake yesterday was 1370. Urine output yesterday was 2375. Weight in the bed scale today is 112.2 kg. He is negative 1 liter. General: Patient is seen sitting in the chair, awake, alert, oriented, no acute distress. Extraocular muscles are intact. Tongue is moist. Neck is supple. Jugular veins are not elevated. Cardiac: Regular rate and rhythm. No significant edema in the peripheries. Lungs: Are clear to auscultation bilaterally. No crackle or rale. Abdomen: Is soft and nontender. Genitourinary: Shows Poole catheter. The urine is now clearing up. LABS: Hemoglobin 12.0, platelets 220. Sodium 135, potassium 2.9, bicarbonate 33, creatinine 1.9. BUN 47. INPATIENT MEDICATIONS: I have started the patient on amlodipine 5 mg by mouth twice a day and amiloride 5 mg by mouth daily. His insulin was adjusted per the primary team. He also received 80 mEq of potassium chloride today. PROBLEMS: 1. Acute kidney injury (ARMEN) on chronic kidney disease (CKD) stage III. Review of labs from primary care provider (PCP) shows creatinine has fluctuated from 1.1 to 1.9. In the past 6 months, it looks like he has been having recurrent acute kidney injury, possibly related to the recent hospitalizations he has had. Over the course of this admission, his renal function is improving. Creatinine today is down to 1.7, which is fairly close to his baseline. His acute kidney injury was likely related to dehydration related to poor oral intake with concomitant use of high-dose diuretic. His diuretics are presently held, and volume status is acceptable. 2. Diastolic congestive heart failure. Echocardiogram done on this admission is noted. Preserved left ventricular ejection fraction. His central venous pressure on echocardiogram done yesterday was only 5 mmHg. I believe he was very much over diuresed prior to this admission, and that is likely why he was so lightheaded and dizzy upon standing and was having recurrent falls at home. He can get by with a decreased dose of diuretic going forward. 3. Hypokalemia and metabolic alkalosis. On review of his old labs, the alkalosis seems to be a chronic issue. In view of the hypokalemia, I am starting him on amiloride 5 mg by mouth daily. He received aggressive oral potassium supplementation today. Will keep a close eye to make sure he does not become hyperkalemic. 4. Hypertension. Blood pressures are uncontrolled, systolic 160-200 earlier today. In addition to his metoprolol and clonidine, I am resuming amlodipine 5 mg by mouth twice a day and starting amiloride 5 mg by mouth daily. 5. Hyponatremia. It is likely a hypovolemic/hyponatremia and it has resolved with holding of his diuretics.
[2018-05-08 10:00] VITALS: BP 160/80
[2018-05-08] MEDS: aMILoride 5 MG TAB PO SCH (10:47)
[2018-05-08] MEDS: HumaLOG INSULIN (NovoLOG) PER UNIT SC SCH ×4 (10:47→20:54)
[2018-05-08] MEDS: LEVEMIR (INSULIN DETEMIR) 1 UNITS/0.01ML SC SCH ×2 (10:47→21:20)
[2018-05-08] MEDS: FLUoxetine 20 MG CAP PO SCH (10:48)
[2018-05-08] MEDS: PRAVASTATIN 20 MG TAB PO SCH (10:49)
[2018-05-08] MEDS: ACETAMINOPHEN 325 MG TAB PO PRN (10:50)
[2018-05-08] MEDS: carBAMazepine 200 MG TAB PO SCH ×2 (10:50→21:18)
[2018-05-08] MEDS: cloNIDine 0.1 MG TAB PO SCH ×2 (10:50→21:18)
[2018-05-08] MEDS: OMEPRAZOLE 20 MG CAP PO SCH (10:50)
[2018-05-08] MEDS: METOPROLOL TART 50 MG TAB PO SCH ×2 (10:51→21:19)
[2018-05-08] MEDS: amLODIPine 5 MG TAB PO SCH ×2 (10:51→21:19)
[2018-05-08] MEDS: ASPIRIN 81 MG ENTERIC TAB PO SCH (10:51)
[2018-05-08] MEDS ORDERED: DOCUSATE SODIUM 100 MG CAP PO PRN (12:45)
[2018-05-08 14:00] VITALS: BP 150/78
[2018-05-08] MEDS: SENOKOT S TAB PO SCH ×2 (14:52→21:00)
--- NOTE | 2018-05-08 15:47 | IPNPDOC ---
Text Note Date of Service The patient was seen on 05/08/18. NOTE Subjective: Patient is a 68-year-old male presented to the hospital after a fall. Patient was found to have a urinary tract infection. Patient says he feels much better than when he first came to the hospital today. He says he is getting stronger with each day and does feel more confident walking. Patient says that he is a little constipated and has not had a bowel movement in a few days. Patient says he had just gotten the Poole catheter removed and says everything feels okay. He is glad to have the Poole catheter removed. Review of systems General: Patient denies fevers HEENT: Patient denies headaches Cardiovascular: Patient denies chest pain Respiratory: Patient denies shortness of breath, cough GI: Patient denies abdominal pain, nausea, vomiting, diarrhea : Patient denies pain or difficulty with urination Neurological: Patient denies numbness or tingling in extremities Extremities: Patient denies swelling or pain in extremities Objective: Vitals: (see below) General: No acute distress, laying comfortably in bed. HEENT: Normocephalic, atraumatic, moist mucous membranes. Neck: No JVD or lymphadenopathy Cardiac: RRR, No murmurs Pulm: Clear to auscultation b/l. No wheezing, rhonchi Abd: NT/ND + BS Ext: Trace to 1+ pitting edema bilaterally. There are alterable wounds on the right and left shins bilaterally. Radial pulses 2 out of 4 bilaterally dorsalis pedis and posterior tibial pulses 1 out of 4 bilaterally Labs (see below) Images: No new imaging has been performed Assessment/Plan 1. Fall history. Patient will continue to work with physical therapy. 2. Acute kidney injury. Patient's creatinine continues to improve. Patient's creatinine is 1.48 today which is down from 1.75 yesterday. 3. Diabetes. We have increased the patient's sliding scale because the patient's blood sugar were elevated 300s. We'll continue to monitor. 4. Hypertension. Patient's blood pressures been running high so amlodipine 5 mg was added. We have continue patient's home medications. 5. History of CVA. We are continuing patient's aspirin and statin. 6. Gastroesophageal reflux disease. We are continuing the patient's home medication. 7. Depression. We are continuing the patient's fluoxetine. 8. Urinary tract infection. We will continue patient's ceftriaxone for a total of 7 days. Patient has received 3 doses so far. Patient is due for his fourth dose today. DVT prophy: Heparin 5000 units every 8 hours Dispo: Pending clearance from physical therapy VS,Vadimbone, I+O VS, Fishbone, I+O Laboratory Tests 05/08/18 05:13 Red Blood Count 4.11 L, Mean Corpuscular Volume 87.1, Mean Corpuscular Hemoglobin 29.2, Mean Corpuscular Hemoglobin Concent 33.5, Red Cell Distribution Width 13.8, Calcium Level 8.6 L Vital Signs Date Time Temp Pulse Resp B/P (MAP) Pulse Ox O2 Delivery O2 Flow Rate FiO2 05/08/18 14:00 98.0 65 14 150/78 (102) 99 05/05/18 00:00 Room Air I&O- Last 24 Hours up to 6 AM 05/08/18 06:00 Intake Total 1500 ml Output Total 2300 ml Balance -800 ml GME ATTESTATION GME ATTESTATION My faculty preceptor for this patient encounter was physically present during the encounter and was fully available. All aspects of the patient interview, examination, medical decision making process, and medical care plan development were reviewed and approved by the faculty preceptor. The faculty preceptor is aware and concurs with the plan as stated in the body of this note and will attest to such by his/her cosignature. ATTENDING NOTE I have both independently examined this patient as well as reviewed the note I have discussed in detail the findings and plan of treatment as documented in the note. I will continue to follow the patient and offer further guidance to the patients care as necessary during this hospital stay. JOVAN Franklin MD, DO May 08, 2018 15:47 JOSE JURADO MD May 09, 2018 07:12
[2018-05-08] MEDS: cefTRIAXone SOD 1 GM in D5W MINI-BAG PLUS 50 ML IV SCH (17:35)
[2018-05-08 18:00] VITALS: BP 148/80
[2018-05-08] MEDS: GABAPENTIN 400 MG CAP PO SCH (21:18)
[2018-05-08 22:00] VITALS: BP 169/79
[2018-05-09 02:00] VITALS: BP 134/68
[2018-05-09] MEDS: HEPARIN SOD (PORCINE) 5000 UNITS/ML VIAL SC SCH ×3 (05:04→20:49)
[2018-05-09 05:26] LABS: HEMATOCRIT 35.2 % (42.0-52.0); HEMOGLOBIN 11.7 g/dl (13.5-17.5); MEAN CORPUSCULAR HEMOGLOBIN 29.1 pg (27.0-33.0); MEAN CORPUSCULAR HGB CONC 33.2 g/dl (32.0-36.5); MEAN CORPUSCULAR VOLUME 87.6 fl (80.0-96.0); PLATELET COUNT, AUTOMATED 237 10^3/uL (150-450); RED BLOOD COUNT 4.02 10^6/uL (4.30-6.10); WHITE BLOOD COUNT 8.1 10^3/uL (4.0-10.0)
[2018-05-09 05:51] LABS: CALCIUM LEVEL 8.5 MG/DL (8.8-10.2); CREATININE FOR GFR 1.46 MG/DL (0.70-1.30); GLOMERULAR FILTRATION RATE 50.8 (>42); POTASSIUM SERUM 3.9 MEQ/L (3.5-5.1)
[2018-05-09 06:00] VITALS: BP 131/68
[2018-05-09] MEDS: carBAMazepine 200 MG TAB PO SCH ×2 (08:02→20:41)
[2018-05-09] MEDS: FLUoxetine 20 MG CAP PO SCH (08:02)
[2018-05-09] MEDS: aMILoride 5 MG TAB PO SCH (08:02)
[2018-05-09] MEDS: PRAVASTATIN 20 MG TAB PO SCH (08:02)
[2018-05-09] MEDS: amLODIPine 5 MG TAB PO SCH ×2 (08:03→20:42)
[2018-05-09] MEDS: ASPIRIN 81 MG ENTERIC TAB PO SCH (08:03)
[2018-05-09] MEDS: SENOKOT S TAB PO SCH ×2 (08:03→20:42)
[2018-05-09] MEDS: METOPROLOL TART 50 MG TAB PO SCH ×2 (08:03→20:43)
[2018-05-09] MEDS: OMEPRAZOLE 20 MG CAP PO SCH (08:03)
[2018-05-09] MEDS: cloNIDine 0.1 MG TAB PO SCH ×2 (08:04→20:42)
[2018-05-09] MEDS: HumaLOG INSULIN (NovoLOG) PER UNIT SC SCH ×4 (08:04→20:44)
[2018-05-09] MEDS: LEVEMIR (INSULIN DETEMIR) 1 UNITS/0.01ML SC SCH ×2 (08:04→20:44)
[2018-05-09 10:00] VITALS: BP 134/72
[2018-05-09 14:00] VITALS: BP 159/75
--- NOTE | 2018-05-09 16:42 | IPN ---
DATE: 05/09/2018 Patient seen and examined. Currently comfortable. Denies any chest pain, pressure or discomfort. Able to ambulate. Denies any nausea, vomiting. Has inquired about his discharge. VITAL SIGNS: Temperature 98.7, pulse 63, respirations 20, blood pressure 159/75, pulse oximetry 98% on room air. LABORATORY DATA: WBC 8.1, hemoglobin and hematocrit 11.7/35.2, platelets 237. Chemistry: Sodium 137, potassium 3.9, chloride 100, bicarbonate 31, BUN 31, creatinine 1.46. PHYSICAL EXAMINATION: GENERAL: Patient obese, alert, comfortable, in no acute distress. HEENT: Normocephalic, atraumatic. CARDIAC: Regular, S1, S2. PULMONARY: Bilateral clear, no wheeze, rales, or rhonchi. ABDOMEN: Soft, nontender, positive bowel sounds. EXTREMITIES: 1+ edema bilateral. ASSESSMENT AND PLAN: This is a 68-year-old male patient with underlying medical history of diabetes, hypertension, obesity, gastroesophageal reflux disease (GERD), coronary artery disease with coronary artery bypass graft (CABG), prostate cancer requiring radiation, prior history of stroke, presented with complaints of multiple falls, was recently discharged from rehabilitation. 1. History of falls. Physical therapy/occupational therapy (PT/OT) as ordered. 2. Acute kidney injury, resolved. Avoid nephrotoxic agents. Nephrology consult appreciated. 3. Diabetes mellitus type 2. Insulin as ordered, basal bolus, adjust as needed. Followup finger sticks. 4. Hypertension. Continue blood pressure medication, adjust as needed. 5. History of CVA. Continue aspirin, statin. Continue blood pressure medication as ordered. 6. Gastroesophageal reflux disease (GERD). Continue current medication. 7. Depression. Continue current medication. 8. Urinary tract infection (UTI). Will need total of 10-14 days of antibiotics, currently day #4. 9. Deep venous thrombosis (DVT) prophylaxis. Heparin subcutaneous. DISPOSITION: Pending physical therapy/occupational therapy (PT/OT).
[2018-05-09] MEDS: cefTRIAXone SOD 1 GM in D5W MINI-BAG PLUS 50 ML IV SCH (17:52)
[2018-05-09 18:00] VITALS: BP 139/65
[2018-05-09] MEDS: GABAPENTIN 400 MG CAP PO SCH (20:41)
[2018-05-09 22:00] VITALS: BP 184/70
[2018-05-10 02:00] VITALS: BP 160/73
[2018-05-10 06:00] VITALS: BP 140/68
[2018-05-10] MEDS: HEPARIN SOD (PORCINE) 5000 UNITS/ML VIAL SC SCH (06:14)
[2018-05-10 06:15] LABS: HEMATOCRIT 34.9 % (42.0-52.0); HEMOGLOBIN 11.6 g/dl (13.5-17.5); MEAN CORPUSCULAR HEMOGLOBIN 29.4 pg (27.0-33.0); MEAN CORPUSCULAR HGB CONC 33.2 g/dl (32.0-36.5); MEAN CORPUSCULAR VOLUME 88.6 fl (80.0-96.0); PLATELET COUNT, AUTOMATED 231 10^3/uL (150-450); RED BLOOD COUNT 3.94 10^6/uL (4.30-6.10); WHITE BLOOD COUNT 7.7 10^3/uL (4.0-10.0)
[2018-05-10 06:26] LABS: CALCIUM LEVEL 8.4 MG/DL (8.8-10.2); CREATININE FOR GFR 1.37 MG/DL (0.70-1.30); GLOMERULAR FILTRATION RATE 54.7 (>42); POTASSIUM SERUM 4.2 MEQ/L (3.5-5.1)
[2018-05-10] MEDS: LEVEMIR (INSULIN DETEMIR) 1 UNITS/0.01ML SC SCH (08:08)
[2018-05-10] MEDS: carBAMazepine 200 MG TAB PO SCH (08:09)
[2018-05-10] MEDS: FLUoxetine 20 MG CAP PO SCH (08:09)
[2018-05-10] MEDS: HumaLOG INSULIN (NovoLOG) PER UNIT SC SCH ×2 (08:09→12:09)
[2018-05-10] MEDS: PRAVASTATIN 20 MG TAB PO SCH (08:09)
[2018-05-10] MEDS: aMILoride 5 MG TAB PO SCH (08:09)
[2018-05-10 08:10] VITALS: BP 142/60
[2018-05-10] MEDS: ASPIRIN 81 MG ENTERIC TAB PO SCH (08:10)
[2018-05-10] MEDS: amLODIPine 5 MG TAB PO SCH (08:10)
[2018-05-10] MEDS: METOPROLOL TART 50 MG TAB PO SCH (08:10)
[2018-05-10] MEDS: OMEPRAZOLE 20 MG CAP PO SCH (08:10)
[2018-05-10] MEDS: SENOKOT S TAB PO SCH (08:10)
[2018-05-10] MEDS: cloNIDine 0.1 MG TAB PO SCH (08:10)
[2018-05-10] MEDS ORDERED: TORSEMIDE 10 MG TABLET PO SCH (09:00)
[2018-05-10 10:00] VITALS: BP 150/70
--- NOTE | 2018-05-10 11:03 | IPN ---
DATE: 05/08/2018 Mr. Rosario is seen this morning on his bedside. He is sitting in the chair at the time of my visit. He reports that he is feeling much better and has been ambulating in the hallway without any further falls. He has a history of frequent falls at home. He was felt to be quite dehydrated and hypotensive on admission. With IV fluid hydration, he has improved significantly and kidney function has also improved. PHYSICAL EXAMINATION: Temperature 98.3 degrees Fahrenheit, heart rate 69 per minute and respiratory rate 18 per minute. Blood pressure 130/62 mmHg and oxygen saturation 95% on room air. His head is atraumatic. Neck is supple and without jugular venous distention (JVD) or thyroid enlargement. There is no oral thrush or ulcers. Heart sounds are regular and lungs sound clear to auscultation. Abdomen is soft and nontender and bowel sounds are present. Extremities have no cyanosis or clubbing. He has a small laceration on his right knee and multiple scabs on the lower legs from prior injuries. Neurologically, he is awake, alert and oriented times three. Today's labs show sodium 137, potassium 3.3, CO2 33, BUN 36 and creatinine 1.48. Glucose 222 and calcium 8.6. WBC count is 8.1, hemoglobin 12.0 and hematocrit 35.8. PROBLEMS: 1. Acute renal failure superimposed on chronic kidney disease. Kidney function is improving nicely and at present he is not receiving IV fluid. We will continue to monitor and leave him on regular diet for now. His diuretics have been on hold. 2. Hypokalemia and the patient is receiving potassium supplement and we will monitor his electrolytes on a daily basis. 3. Urinary tract infection (UTI). The patient is currently being treated with ceftriaxone 1 gram every 24 hours. I am going to remove his Poole catheter due to risk of worsening of his UTI. 4. Hypertension. Blood pressure seems to be reasonably well-controlled on current antihypertensive medications. No changes are being made today.
[2018-05-10] MEDS ORDERED: TORS10TA3 PO (12:46)
[2018-05-10] MEDS ORDERED: AMIL5TAB4 PO (13:17)
[2018-05-10] MEDS ORDERED: CEFD1CAP8 PO (13:20)
[2018-05-10] MEDS ORDERED: AMLO5TAB6 PO (13:20)
--- NOTE | 2018-05-10 14:54 | IPN ---
DATE OF VISIT: 05/09/2018 Mr. Rosario is seen this morning on his bedside. He is sitting in the chair and reports feeling well. He has been ambulating without any problems and denies any dyspnea, chest pain, dizziness or lightheadedness. He was admitted with acute renal failure and improved after his diuretics were held and he was hydrated. His kidney function seems to be leveled off with creatinine of about 1.4 mg/dL. On physical exam, temperature 98 degrees Fahrenheit, heart rate 70 per minute and respiratory rate 20 per minute. Blood pressure 134/72 mmHg and oxygen saturation 97% on room air. His head is atraumatic. Neck is supple and without jugular venous distention (JVD) sitting upright. Lung sounds clear to auscultation. Heart sounds are regular and without a pericardial friction rub. Abdomen soft and nontender and bowel sounds are normal. Extremities have no cyanosis or clubbing. Neurologically, he is awake, alert and oriented times three. Today's labs show sodium level 137, potassium 3.9, CO2 31, BUN 31 and creatinine 1.46. Glucose 184 and calcium 8.5. WBC count is 8.1, hemoglobin 11.7 and hematocrit 35.2. Platelets 237. PROBLEMS: 1. Acute renal failure superimposed on chronic kidney disease. Kidney function has improved significantly and seems to be leveled off. This is probably his baseline kidney function. 2. Hypokalemia. His potassium level has improved and corrected. He is currently on amiloride 5 mg daily, which will be continued. He should remain on a regular potassium diet. 3. Hypertension. Blood pressure is well-controlled on current dose of metoprolol, amlodipine and amiloride. No changes are being made today. 4. Urinary tract infection (UTI). Patient has been on ceftriaxone and currently asymptomatic. His Poole catheter was removed yesterday and patient denies any difficulty voiding. DISPOSITION: From renal standpoint, patient can be discharged to home when he gets cleared by physical therapy. He will need to followup in our office for his chronic kidney disease and need for resuming off diuretics.
--- NOTE | 2018-05-10 18:05 | DS.PDOC ---
Discharge Summary General Date of Admission May 04, 2018 at 21:35 Date of Discharge 05/10/2018 Attending Physician: JOSE JURADO MD Discharge Summary PROCEDURES PERFORMED DURING STAY: None. ADMITTING/DISCHARGE DIAGNOSES: 1. Fall 2. Acute kidney injury 3. Diabetes mellitus type 2 4. Hypertension 5. History of CVA 6. Short esophageal reflux disease. 7. Depression 8. Urinary tract infection COMPLICATIONS/CHIEF COMPLAINT: Fall at home HISTORY OF PRESENT ILLNESS/HOSPITAL COURSE: Patient is a 68-year-old male who presented to the hospital after a fall at home. Patient had recently had a CVA and was in subacute rehabilitation. While at home, patient said he was suffering with nausea vomiting and diarrhea for a few days. Patient then fell after experiencing weakness in his legs and was brought to the hospital. In the hospital patient was diagnosed with an acute kidney injury which was thought to be secondary to the patient's decreased oral intake as well as diuretic use. Diuretics were placed on hold and IV fluid hydration was started. Patient slowly improved over the next day. A urinary analysis was drawn and showed a urinary tract infection. Cultures were taken. Patient had a Poole catheter placed to help with urination and comfort. Patient was started on antibiotics and began to improve. Patient was on ceftriaxone. As patient improved, patient was working with physical therapy. Patient improved each day and on 05/10/2018 patient was medically cleared and cleared by physical therapy for discharge. Patient was to be discharged home. DISCHARGE MEDICATIONS: Please see below. ALLERGIES: Please see below. PHYSICAL EXAMINATION ON DISCHARGE: Vitals: (see below) General: No acute distress, laying comfortably in bed. HEENT: Moist mucous membranes. Neck: No JVD or lymphadenopathy Cardiac: RRR, No murmurs Pulm: Clear to auscultation b/l. No wheezing, rhonchi Abd: NT/ND + BS Ext: Trace pitting edema in the bilateral lower extremities. LABORATORY DATA: Please see below. IMAGING: A knee x-ray performed on 05/04/2018 showed no bony traumatic abnormality. Vascular calcification. Patellar spurring. A head CT without contrast performed on 05/04/2017 showed diffuse cerebral atr ophy and small vessel changes, vascular calcification, no skull fracture or acute intracranial abnormality. A chest CT without IV contrast performed on 05/04/2017 showed cluster of calcified granulomas in the inferior aspect of the right upper lobe, calcified right hilar lymph nodes are present, interstitial fibrosis in the left lower lobe and lingula with associated bronchiectasis. Heart is upper lower limits of normal size. Calcified granulomas are seen in the spleen, focal fatty infiltration of the anterior left lobe of liver. A CT of the cervical spine without contrast showed moderate degenerative spondylosis, central canal stenosis at C6-7 due to posterior osteophytic ridging disc bulging. Bilateral neural foraminal narrowing at C6-7 and on the right at C5-6. No fractures seen A renal ultrasound performed on 05/05/2017 showed proteinaceous debris layering the dependent portion of the urinary bladder and otherwise negative urinary tract sonography. A right rib series performed on 05/05/2017 she showed no acute fracture PROGNOSIS: Fair ACTIVITY: As tolerated. DIET: Consistent carbohydrate DISCHARGE PLAN/DISPOSITION: Discharged home with physical therapy DISCHARGE INSTRUCTIONS: 1. Follow up with primary care physician in 7-10 days. DISCHARGE CONDITION: Stable. TIME SPENT ON DISCHARGE: Greater than 30 minutes. Vital Signs/I&Os Vital Signs Date Time Temp Pulse Resp B/P (MAP) Pulse Ox O2 Delivery O2 Flow Rate FiO2 05/10/18 10:00 98.6 70 20 150/70 (96) 99 05/05/18 00:00 Room Air I&O- Last 24 Hours up to 6 AM 05/10/18 06:00 Intake Total 1616 ml Output Total 1200 ml Balance 416 ml Laboratory Data Labs 24H Laboratory Tests 2 05/09/18 20:17: Bedside Glucose (Misc Panel) 285H 05/10/18 05:34: Nucleated Red Blood Cells % (auto) 0.0, Anion Gap 6L, Glomerular Filtration Rate 54.7, Blood Urea Nitrogen 25H, Creatinine 1.37H, Sodium Level 138, Potassium Level 4.2, Chloride Level 101, Carbon Dioxide Level 31, Calcium Level 8.4L CBC/BMP Laboratory Tests 05/10/18 05:34 Red Blood Count 3.94 L, Mean Corpuscular Volume 88.6, Mean Corpuscular Hemoglobin 29.4, Mean Corpuscular Hemoglobin Concent 33.2, Red Cell Distribution Width 13.9, Calcium Level 8.4 L FSBS Laboratory Tests Test 05/09/18 20:17 Range/Units Bedside Glucose (Misc Panel) 285 83-110 MG/DL Microbiology Microbiology 05/07/18 Urine Culture - Final, Complete Citrobacter Amalonaticus Discharge Medications Scheduled (Tresiba Flextouch) 100 Unit/Ml Inj, 80 UNIT SC QHS, (Reported) Amiloride HCl (Amiloride HCl) 5 Mg Tab, 5 MG PO DAILY Amlodipine Besylate (Amlodipine Besylate) 5 Mg Tab, 5 MG PO BID Aspirin (Aspirin 81) 81 Mg Tab, 81 MG PO DAILY, (Reported) Bacitracin Base (Bacitracin) 500 Unit/Gm Oin, 1 APLCT TOP DAILY, (Reported) APPLY TO ABRASION ON LEFT LEG Carbamazepine (Carbamazepine) 200 Mg Tab, 200 MG PO BID, (Reported) Cefdinir (Cefdinir) 300 Mg Cap, 300 MG PO BID Cholecalciferol (Vitamin D3) 10,000 Unit Cap, 10,000 UNIT PO DAILY, (Reported) Clonidine Hydrochloride (Clonidine HCl) 0.1 Mg Tab, 0.1 MG PO BID, (Reported) HOLD FOR SB<110 Fluoxetine Hcl (Fluoxetine HCl) 20 Mg Cap, 60 MG PO DAILY, (Reported) Gabapentin (Gabapentin) 400 Mg Cap, 400 MG PO QHS, (Reported) Insulin Human Lispro (Humalog) 100 Unit/Ml Inj, 0 SC AC, (Reported) PER SLIDING SCALE Metoprolol Tartrate (Metoprolol Tartrate) 50 Mg Tab, 50 MG PO BID, (Reported) Omeprazole (Omeprazole) 20 Mg Tab, 20 MG PO DAILY, (Reported) Potassium Chloride (Potassium Chloride Powder) 20 Meq Pow, 40 MEQ PO DAILY, (Reported) Pravastatin Sod (Pravastatin Sodium) 40 Mg Tab, 40 MG PO DAILY, (Reported) Torsemide (Torsemide) 10 Mg Tab, 10 MG PO DAILY Scheduled PRN Acetaminophen (Acetaminophen) 325 Mg Tab, 650 MG PO Q4H PRN for PAIN / FEVER, (Reported) Nitroglycerin (Nitrostat) 0.4 Mg Subl, 0.4 MG SL NITRO PRN for CHEST PAIN, (Reported) Allergies Coded Allergies: No Known Drug Allergy (Verified Allergy, Unknown, 05/04/18) GME ATTESTATION GME ATTESTATION My faculty preceptor for this patient encounter was physically present during the encounter and was fully available. All aspects of the patient interview, examination, medical decision making process, and medical care plan development were reviewed and approved by the faculty preceptor. The faculty preceptor is aware and concurs with the plan as stated in the body of this note and will attest to such by his/her cosignature. ATTENDING NOTE I have both independently examined this patient as well as reviewed the note I have discussed in detail the findings and plan of treatment as documented in the note. I will continue to follow the patient and offer further guidance to the patients care as necessary during this hospital stay. JOVAN Franklin MD, DO May 10, 2018 18:05 JOSE JURADO MD May 11, 2018 07:43
--- NOTE | 2018-05-11 07:59 | IPN ---
DATE: 05/10/2018 Mr. Rosario is doing very well and is sitting at the edge of bed waiting for orders to go home. He denies any dyspnea, chest pain, nausea or vomiting. He reports that he has been walking in the hallway without any difficulty. He has no problem with his balance anymore since he has been hydrated. PHYSICAL EXAMINATION: Temperature 98.6 degrees Fahrenheit, heart rate 75 per minute and respiratory rate 20 per minute. Blood pressure 150/70 mmHg and oxygen saturation 99% on room air. His head is atraumatic. Neck is supple and without jugular venous distention (JVD) or thyroid enlargement. Heart sounds are regular and lungs clear to auscultation. Abdomen soft and nontender and bowel sounds are normal. Extremities without any cyanosis or clubbing. Neurologically he is awake, alert and oriented times three. Today's labs show WBC count 7.7, hemoglobin 11.6 and hematocrit 34.9. Sodium 138, potassium 4.2, CO2 of 31, BUN 25 and creatinine 1.37. PROBLEMS: 1. Acute kidney injury superimposed on chronic kidney disease. Kidney function has improved nicely and this is probably his baseline kidney function. Electrolytes are all within normal range. 2. Congestive heart failure: The patient was on high-dose diuretics at home and I have resumed his torsemide 10 mg daily. Further adjustments will be made as an outpatient. 3. Anemia: His anemia is stable and mild and does not need any intervention. 4. Urinary tract infection (UTI): The patient has been treated with ceftriaxone and Poole catheter has been removed. He is currently asymptomatic. I feel that he has had enough antibiotic therapy for a simple UTI. DISPOSITION: From renal standpoint, the patient can be discharged to home today and followup in our office within the next 1-2 weeks.
[2018-05-12 00:08] LABS: ANA (HEP2) Negative (.); FREE KAPPA LIGHT CHAINS SERUM 42.1 mg/L (3.3-19.4); FREE LAMBDA LIGHT CHAINS SERUM 26.6 mg/L (5.7-26.3); KAPPA/LAMBDA RATIO SERUM 1.58 (0.26-1.65)
== END 2018-05-10 13:49 | disposition home or self-care (01) | DRG 92 ==
LOC: EDBD 13:47 → M ED 13:47 → M ED INP 21:35 → M PCU 05-05 00:24 → M MSPAV 05-07 09:23
PROVIDERS: ADMIT Internal Medicine; ATTEND Hospitalist
DX: R29.6 Repeated falls (principal); N17.9 Acute kidney failure, unspecified; N39.0 Urinary tract infection, site not specified; I13.0 Hypertensive heart and chronic kidney disease with heart failure and stage 1 through stage 4 chronic kidney disease, or unspecified chronic kidney disease; E87.1 Hypo-osmolality and hyponatremia; I50.30 Unspecified diastolic (congestive) heart failure; N18.9 Chronic kidney disease, unspecified; E11.65 Type 2 diabetes mellitus with hyperglycemia; K21.9 Gastro-esophageal reflux disease without esophagitis; F32.9 Major depressive disorder, single episode, unspecified; Z86.73 Personal history of transient ischemic attack (TIA), and cerebral infarction without residual deficits; Z79.899 Other long term (current) drug therapy; Z79.82 Long term (current) use of aspirin; E78.5 Hyperlipidemia, unspecified; I25.10 Atherosclerotic heart disease of native coronary artery without angina pectoris; Z95.1 Presence of aortocoronary bypass graft; R26.89 Other abnormalities of gait and mobility; E11.40 Type 2 diabetes mellitus with diabetic neuropathy, unspecified; E87.6 Hypokalemia; D64.9 Anemia, unspecified

== ENCOUNTER 2018-07-13 02:46 | Emergency (ER) | payer MEDICARE, MEDICAID ==
[~2018-07-13] VITALS: Ht 180.3 cm; Wt 113.6 kg
[~2018-07-13 02:46] MED LIST: ACET1TAB55 PO; AMIL5TAB4 PO; AMLO5TAB6 PO; ASPI81TA26 PO; BACI500O8 TOP; CARB1TAB20 PO; CEFD1CAP8 PO; CLON-412 PO; FLUO20CA19 PO; GABA-845 PO; HUMA100I3 SC; METO25TA PO; METO50TA7 PO; NITR4TASL SL; OMEP20TA PO; POTA10PO PO; PRAV40TA2 PO; TORS10TA3 PO; TRES1INJ2 SC; VITA1CAP14 PO
[2018-07-13] MEDS ORDERED: D 50CAP3 PO (03:07)
[2018-07-13] MEDS ORDERED: PRAV40TA2 PO (03:07)
[2018-07-13] MEDS ORDERED: VALA1TAB2 PO (03:07)
[2018-07-13] MEDS ORDERED: GABA-1171 PO (03:07)
[2018-07-13] MEDS ORDERED: AUGM875T28 PO (03:08)
[2018-07-13] MEDS ORDERED: VALT500T PO (03:40)
[2018-07-13] MEDS ORDERED: NORCO 5/325MG TABLET (BULK FOR ED) PO ONE (03:45)
[2018-07-13 03:52] VITALS: BP 187/87
== END 2018-07-13 03:55 | disposition home or self-care (01) ==
LOC: M ED 02:46
DX: B02.9 Zoster without complications (principal); I10 Essential (primary) hypertension; E11.9 Type 2 diabetes mellitus without complications; I25.10 Atherosclerotic heart disease of native coronary artery without angina pectoris; N28.9 Disorder of kidney and ureter, unspecified; Z79.899 Other long term (current) drug therapy; Z79.82 Long term (current) use of aspirin

== ENCOUNTER 2018-07-19 09:31 | Inpatient (IN) | payer MEDICARE, MEDICAID ==
[~2018-07-19] VITALS: Ht 180.3 cm; Wt 114.5 kg
[2018-07-19] MEDS: METOPROLOL TART 50 MG TAB PO SCH ×3 (09:00→21:08)
[2018-07-19] MEDS: LEVEMIR (INSULIN DETEMIR) 1 UNITS/0.01ML SC SCH ×2 (09:00→21:07)
[~2018-07-19 09:31] MED LIST changes: +AUGM875T28 PO; +D 50CAP3 PO; +GABA-1171 PO; +VALA1TAB2 PO; +VALT500T PO
[2018-07-19 10:51] LABS: BASO % 0.2 % (0.0-1.0); EOS # 0.1 10^3/uL (0.0-0.50); HEMATOCRIT 36.3 % (42.0-52.0); HEMOGLOBIN 12.4 g/dl (13.5-17.5); LYMPH # 0.6 10^3/uL (1.5-4.5); LYMPH % 4.4 % (24.0-44.0); MEAN CORPUSCULAR HEMOGLOBIN 31.2 pg (27.0-33.0); MEAN CORPUSCULAR HGB CONC 34.2 g/dl (32.0-36.5); MEAN CORPUSCULAR VOLUME 91.2 fl (80.0-96.0); MONO # 0.8 10^3/uL (0.0-0.8); MONO % 5.6 % (0.0-5.0); NEUTROPHILS # 11.9 10^3/uL (1.8-7.7); NEUTROPHILS % 88.2 % (36.0-66.0); PLATELET COUNT, AUTOMATED 236 10^3/uL (150-450); RED BLOOD COUNT 3.98 10^6/uL (4.30-6.10); WHITE BLOOD COUNT 13.5 10^3/uL (4.0-10.0)
[2018-07-19 11:24] LABS: CREATININE FOR GFR 1.38 MG/DL (0.70-1.30); GLOMERULAR FILTRATION RATE 54.2 (>42); POTASSIUM SERUM 3.5 MEQ/L (3.5-5.1)
[2018-07-19] MEDS ORDERED: ONDANSETRON 4MG/2ML VIAL (J2405) IV ONE ×2 (11:45)
[2018-07-19] MEDS ORDERED: MORPHINE 4 MG/ML 1ML VIAL/SYRINGE (J2270) IV ONE ×2 (11:45)
[2018-07-19] MEDS ORDERED: NS 1,000 ML IV ONE (12:30)
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
[2018-07-19] MEDS ORDERED: AMLO5TAB6 PO (13:13)
[2018-07-19] MEDS ORDERED: FLUO40CA PO (13:13)
[2018-07-19] MEDS ORDERED: OXCA150T21 PO ×3 (13:13)
[2018-07-19] MEDS ORDERED: TORS10TA3 PO (13:13)
[2018-07-19] MEDS ORDERED: VALA500T5 PO (13:13)
[2018-07-19 13:16] LABS: MB/CK RELATIVE INDEX 2.07 (< OR =4); TROPONIN I 0.02 NG/ML (< 0.10)
--- NOTE | 2018-07-19 13:48 | REP ---
Chest one-view HISTORY: Syncope Comparison: None Patchy density is present in the left lower lobe consistent with atelectasis or infiltrate. The right lung is clear. The heart is normal in size. The pulmonary vasculature is normal in appearance. Impression: Left lower lobe atelectasis or infiltrate. Electronically Signed by John Ruiz MD 07/19/2018 01:39 P
[2018-07-19] MEDS ORDERED: HumuLIN R (REGULAR) INSULIN (NovoLIN R) **100U/ML** PER UNIT IV ONE (14:00)
[2018-07-19] MEDS ORDERED: GABAPENTIN 100 MG CAP PO PRN (14:15)
[2018-07-19] MEDS ORDERED: GLUCAGON FOR INJ 1 MG VIAL (J1610) SC PRN (14:15)
[2018-07-19] MEDS ORDERED: NITROGLYCERIN 0.4 MG SUBL TABLET SL PRN (14:15)
[2018-07-19] MEDS ORDERED: GLUCOSE 4 GM CHEW TABLET PO PRN (14:15)
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
[2018-07-19 15:30] VITALS: BP 200/90
--- NOTE | 2018-07-19 15:49 | REP ---
REASON: Followup chronic lung changes. COMPARISON: 05/04/2018. The lack of intravenous contrast decreased the sensitivity of the exam. The mediastinum and pulmonary aaliyah are unchanged. There is no gross mass or adenopathy. There are no pleural or pericardial effusions. There is no change in the appearance of the imaged upper abdomen. Bone window technique throughout the exam shows two healing right rib fractures the 8th laterally and the 10th proximally near the demifacet. These represent changes from the prior exam. Evaluation of the lung armenta show patchy parenchymal opacities in the left upper lobe and lingula. Patchy opacities are also seen in the left lower lobe. All of this represents a change from the prior exam. IMPRESSION: 1. Patch and somewhat nodular opacities in the left lung as described above consistent with a clinical diagnosis of pneumonia. Followup to complete resolution is recommended. 2. Right sided rib fractures also new from the prior exam. 3. Other findings as described above. Electronically Signed by Jonathan Mccarthy DO 07/19/2018 04:38 P
[2018-07-19] MEDS ORDERED: SLF 3 ML SYR IV PRN (16:15)
[2018-07-19] MEDS: OMEPRAZOLE 20 MG CAP PO SCH (16:26)
[2018-07-19] MEDS: amLODIPine 5 MG TAB PO SCH (16:26)
[2018-07-19] MEDS: ASPIRIN 81 MG ENTERIC TAB PO SCH (16:26)
[2018-07-19] MEDS: FLUoxetine 20 MG CAP PO SCH (16:26)
[2018-07-19 16:48] LABS: CPK CREATINE PHOSPHOKINASE 78 U/L (39-308); MB/CK RELATIVE INDEX 2.44 (< OR =4); TROPONIN I < 0.02 NG/ML (< 0.10)
[2018-07-19] MEDS: MORPHINE 4 MG/ML 1ML VIAL/SYRINGE (J2270) IV PRN (17:04)
[2018-07-19] MEDS: AZITHROMYCIN INJ 500 MG, VIAL MATE ADAPTER 1 EACH in D5W 250 ML IV SCH (17:27)
[2018-07-19] MEDS: HumaLOG INSULIN (NovoLOG) PER UNIT SC SCH ×2 (17:27→21:06)
[2018-07-19 18:18] LABS: BLOOD UREA NITROGEN 18 MG/DL (7-18); CALCIUM LEVEL 8.8 MG/DL (8.8-10.2); CARBON DIOXIDE LEVEL 28 MEQ/L (21-32); CHLORIDE LEVEL 100 MEQ/L (98-107); CREATININE FOR GFR 1.29 MG/DL (0.70-1.30); GLOMERULAR FILTRATION RATE 58.6 (>42); GLUCOSE, FASTING 272 MG/DL (70-100); POTASSIUM SERUM 3.5 MEQ/L (3.5-5.1); SODIUM LEVEL 136 MEQ/L (136-145)
[2018-07-19] MEDS: NS 1,000 ML IV SCH (18:36)
[2018-07-19] MEDS: cefTRIAXone SOD 2 GM in D5W MINI-BAG PLUS 50 ML IV SCH (18:56)
[2018-07-19 20:00] VITALS: BP 138/60
[2018-07-19] MEDS ORDERED: cloNIDine 0.1 MG TAB PO SCH (21:00)
[2018-07-19] MEDS ORDERED: OXcarbazepine 150 MG TAB PO SCH (21:00)
[2018-07-19 21:06] LABS: MB/CK RELATIVE INDEX 2.34 (< OR =4); TROPONIN I 0.02 NG/ML (< 0.10)
[2018-07-19] MEDS: HEPARIN SOD (PORCINE) 5000 UNITS/ML VIAL SC SCH (21:06)
[2018-07-19] MEDS: valACYclovir HCL 500 MG TAB PO SCH (21:07)
[2018-07-19] MEDS: PRAVASTATIN 20 MG TAB PO SCH (21:07)
[2018-07-19] MEDS: VITAMIN D 1,000 INTERNATIONAL UNITS TABLET PO SCH (21:07)
[2018-07-19] MEDS: SLF 3 ML SYR IV SCH (21:08)
[2018-07-19] MEDS ORDERED: diphenhydrAMINE 25 MG CAP PO ONE (23:15)
--- NOTE | 2018-07-19 23:53 | ECGEPIP ---
Stationary ECG Study [facility] - ED Test Date: 2018-07-19 Pat Name: MARIE FLYNN Department: Room: - Gender: M [employer] Operator: VLAD : [id number] Requested By: Marcelo Yoder Order Number: [id number] Reading MD: Tk Conklin Measurements Intervals [place] Rate: 71 P: 17 [place]: 264 QRS: -26 QRSD: 97 T: 97 QT: 424 QTc: 463 Interpretive Statements SINUS RHYTHM WITH FIRST DEGREE AV BLOCK BORDERLINE LEFT AXIS DEVIATION LEFT VENTRICULAR HYPERTROPHY AND ST-T CHANGE Delayed anterior R wave progression Comparison tracing not on file Electronically Signed On 07-19-2018 23:53:33 EDT by Tk Conklin
[2018-07-20] VITALS (7 sets, daily range): BP systolic 154–177; BP diastolic 66–82
[2018-07-20] MEDS: MORPHINE 4 MG/ML 1ML VIAL/SYRINGE (J2270) IV PRN ×3 (04:07→21:09)
[2018-07-20] MEDS: HEPARIN SOD (PORCINE) 5000 UNITS/ML VIAL SC SCH ×3 (05:16→20:32)
[2018-07-20] MEDS: SLF 3 ML SYR IV SCH ×3 (05:16→20:33)
[2018-07-20 06:09] LABS: BASO # 0.1 10^3/uL (0.0-0.2); BASO % 0.6 % (0.0-1.0); EOS # 0.6 10^3/uL (0.0-0.50); EOS % 6.1 % (0.0-3.0); HEMATOCRIT 33.1 % (42.0-52.0); HEMOGLOBIN 11.2 g/dl (13.5-17.5); LYMPH # 0.9 10^3/uL (1.5-4.5); LYMPH % 8.7 % (24.0-44.0); MEAN CORPUSCULAR HEMOGLOBIN 31.6 pg (27.0-33.0); MEAN CORPUSCULAR HGB CONC 33.8 g/dl (32.0-36.5); MEAN CORPUSCULAR VOLUME 93.5 fl (80.0-96.0); MONO # 0.9 10^3/uL (0.0-0.8); MONO % 8.5 % (0.0-5.0); NEUTROPHILS % 75.5 % (36.0-66.0); PLATELET COUNT, AUTOMATED 229 10^3/uL (150-450); RED BLOOD COUNT 3.54 10^6/uL (4.30-6.10); WHITE BLOOD COUNT 10.5 10^3/uL (4.0-10.0)
[2018-07-20 06:36] LABS: BLOOD UREA NITROGEN 21 MG/DL (7-18); CALCIUM LEVEL 8.5 MG/DL (8.8-10.2); CARBON DIOXIDE LEVEL 30 MEQ/L (21-32); CHLORIDE LEVEL 102 MEQ/L (98-107); CREATININE FOR GFR 1.19 MG/DL (0.70-1.30); GLOMERULAR FILTRATION RATE > 60.0 (>42); GLUCOSE, FASTING 180 MG/DL (70-100); MAGNESIUM LEVEL 1.8 MG/DL (1.8-2.4); POTASSIUM SERUM 3.2 MEQ/L (3.5-5.1); SODIUM LEVEL 140 MEQ/L (136-145)
[2018-07-20] MEDS ORDERED: POTASSIUM CHLORIDE 10 MEQ SR TABLET PO ONE (07:15)
[2018-07-20] MEDS: FLUoxetine 20 MG CAP PO SCH (07:53)
[2018-07-20] MEDS: OMEPRAZOLE 20 MG CAP PO SCH (07:53)
[2018-07-20] MEDS: OXcarbazepine 150 MG TAB PO SCH ×2 (07:53→20:32)
[2018-07-20] MEDS: HumaLOG INSULIN (NovoLOG) PER UNIT SC SCH ×4 (07:53→20:33)
[2018-07-20] MEDS: valACYclovir HCL 500 MG TAB PO SCH (07:54)
[2018-07-20] MEDS: NS 1,000 ML IV SCH (07:54)
[2018-07-20] MEDS: ASPIRIN 81 MG ENTERIC TAB PO SCH (07:54)
[2018-07-20] MEDS: LEVEMIR (INSULIN DETEMIR) 1 UNITS/0.01ML SC SCH ×2 (07:54→20:33)
[2018-07-20] MEDS: amLODIPine 5 MG TAB PO SCH (07:57)
[2018-07-20] MEDS ORDERED: predniSONE 20 MG TAB PO SCH (09:00)
[2018-07-20] MEDS ORDERED: predniSONE 50 MG TAB PO SCH ×2 (09:00)
[2018-07-20] MEDS: SCOPOLAMINE 1MG TRANSDERMAL PATCH TOP SCH (09:00)
--- NOTE | 2018-07-20 09:04 | IPNPDOC ---
Subjective Date Seen The patient was seen on 07/20/18. Subjective Chief Complaint/HPI Pt is eating at the time of the examination with nursing staff's presence. Pt reported that he has intermittent nausea and vomiting since admission; denies fever or chills. Said that he has intermittent right ear pain even after his facial shingles lesions resolved. Pt reported intermittent lightheadedness/dizziness/loss of balance but reported he has been able to walk in the hospital. Limited info was able to be obtained as pt wanted to eat. It is noted that pt has occasional slurred speech and slowed response General: Denies: Chills Constitutional: Denies: Chills, Fever ENT: Reports: Ear Pain (intermittent right ear pain) Gastrointestinal: Reports: Nausea, Vomiting; Denies: Abdominal Pain, Diarrhea, Constipation Neurological: Reports: Incoordination (intermittent), Change in speech (intermittent slurred speech) Objective Physical Examination General Exam: Positive: Alert, Cooperative, No Acute Distress Eye Exam: Positive: Conjunctiva & lids normal; Negative: Sclera icteric ENT Exam: Positive: Atraumatic, Mucous membr. moist/pink, Other ENT (limited TM was able to be visualized. No obvious lesions/vesicles noted in right ear canal) Neck Exam: Positive: Supple Chest Exam: Positive: Clear to auscultation, Normal air movement; Negative: Rales, Rhonchi, Wheezing Heart Exam: Positive: Rate Normal, Regular Rhythm, Normal S1, Normal S2; Negative: Murmurs Abdomen Exam: Positive: Normal bowel sounds, Soft; Negative: Tenderness Skin Exam: Positive: Nl turgor and temperature; Negative: Breakdown, Lesion Neuro Exam: Positive: Strength at 5/5 X4 ext, Cranial Nerves 3-12 NL Psych Exam: Positive: Oriented x 3 A-FIB/CHADSVASC A-FIB History Current/History of A-Fib/PAF?: No Assessment /Plan Problems (1) Near syncope Status: Acute Problem Text: Likely 2/2 to postherpetic neuralgia vs shingles vestibular neuritis vs diabetic autonomic neuropathy vs r/o UTI. - intermittent N/V/dizziness/lightheadedness/balance problem - Mild leukocytosis improving with no fever/chills - Loop recorder showed no abnormal event on the day of presyncope; July 06 pt had HR in the 30s for 11 sec at 8AM - Pt did have prior episode of similar presentations w/ admissions to hospital attributed to UTI at the time. - UA with reflex urine cx, EEG, echo, carotid duplex, and MRI brain ordered. No abnormalities shown on CT head. - Blood cx pending. - Cont pt on outpt Valacyclovir med - start scopolamine patch (2) Shingles outbreak Problem Text: - On whole right sided face and right shoulder; reported resolution of lesions last week but still has intermittent right sided ear pain. - No active lesions/vesicles noted in external ear canal on right - Cont outpt med Valacyclovir (3) Leukocytosis Problem Text: Trending down; possibly 2/2 infectious etiology - possibly 2/2 community acquired pneumonia; coverage for gram negative pneumonia, possibly 2/2 reactive etiology -shinglesX4 weeks with CXR shows left lower lobe atelectasis/infiltrate -Pt on Ceftriaxone and Azithromycin based on CT findings -pt remains afebrile (4) CAD (coronary artery disease) of bypass graft Status: Chronic Problem Text: Continue metoprolol, statin, and aspirin (5) Hypertension Status: Chronic Problem Text: BP 160/80 this morning; HTN - SBPs in the 200s in the ER likely d/t missing morning medications - Troponin negative x2 set - EKG reviewed and unchanged - Cont Metoprolol, Clonidine, and Amlodipine (6) History of cerebrovascular accident Status: Chronic Problem Text: Continue pravastatin and ASA (7) Diabetes mellitus type 2, insulin dependent Status: Chronic Problem Text: - On insulin detemir 40 units BID; glucose check and sliding scale - hypoglycemia protocol (8) Dyslipidemia Status: Chronic Problem Text: Continue home med Pravastatin (9) History of prostate cancer Status: Chronic Problem Text: s/p radiation in 2010 (10) Chronic GERD Status: Chronic Problem Text: Continue Omeprazole 20mg QD Plan/VTE VTE Prophylaxis Ordered?: Yes VS, I&O, 24H, Fishbone Vital Signs/I&O Vital Signs Date Time Temp Pulse Resp B/P (MAP) Pulse Ox O2 Delivery O2 Flow Rate FiO2 07/20/18 07:57 65 160/80 07/20/18 04:17 16 07/20/18 04:00 97.6 98 07/19/18 15:20 Room Air I&O- Last 24 Hours up to 6 AM 07/20/18 06:00 Intake Total 960 ml Output Total 750 ml Balance 210 ml Laboratory Data 24H LABS Laboratory Tests 2 07/19/18 10:33: 07/19/18 10:34: Immature Granulocyte % (Auto) 0.6, White Blood Count 13.5H, Red Blood Count 3.98L, Hemoglobin 12.4L, Hematocrit 36.3L, Mean Corpuscular Volume 91.2, Mean Corpuscular Hemoglobin 31.2, Mean Corpuscular Hemoglobin Concent 34.2, Red Cell Distribution Width 14.5, Platelet Count 236, Neutrophils (%) (Auto) 88.2H, Lymphocytes (%) (Auto) 4.4L, Monocytes (%) (Auto) 5.6H, Eosinophils (%) (Auto) 1.0, Basophils (%) (Auto) 0.2, Neutrophils # (Auto) 11.9H, Lymphocytes # (Auto) 0.6L, Monocytes # (Auto) 0.8, Eosinophils # (Auto) 0.1, Basophils # (Auto) 0.0, Nucleated Red Blood Cells % (auto) 0.0, Anion Gap 5L, Glomerular Filtration Rate 54.2, Blood Urea Nitrogen 20H, Creatinine 1.38H, Sodium Level 134L, Potassium Level 3.5, Chloride Level 97L, Carbon Dioxide Level 32, Calcium Level 9.0, Total Creatine Kinase 92, Creatine Kinase MB 2.0, Creatine Kinase MB Relative Index 2.07, Troponin I 0.02 07/19/18 15:18: Bedside Glucose (Misc Panel) 274H 07/19/18 16:07: Anion Gap 8, Glomerular Filtration Rate 58.6, Blood Urea Nitrogen 18, Creatinine 1.29, Sodium Level 136, Potassium Level 3.5, Chloride Level 100, Carbon Dioxide Level 28, Calcium Level 8.8, Total Creatine Kinase 78, Creatine Kinase MB 2.0, Creatine Kinase MB Relative Index 2.44, Troponin I < 0.02, Lactic Acid Level 2.3*H 07/19/18 17:07: Bedside Glucose (Misc Panel) 343H 07/19/18 20:19: Bedside Glucose (Misc Panel) 331H 07/19/18 20:23: Lactic Acid Followup at 4 Hours 1.5, Total Creatine Kinase 64, Creatine Kinase MB 2.0, Creatine Kinase MB Relative Index 2.34, Troponin I 0.02 07/20/18 05:29: Immature Granulocyte % (Auto) 0.6, White Blood Count 10.5H, Red Blood Count 3.54L, Hemoglobin 11.2L, Hematocrit 33.1L, Mean Corpuscular Volume 93.5, Mean Corpuscular Hemoglobin 31.6, Mean Corpuscular Hemoglobin Concent 33.8, Red Cell Distribution Width 14.5, Platelet Count 229, Neutrophils (%) (Auto) 75.5H, Lymphocytes (%) (Auto) 8.7L, Monocytes (%) (Auto) 8.5H, Eosinophils (%) (Auto) 6.1H, Basophils (%) (Auto) 0.6, Neutrophils # (Auto) 8.0H, Lymphocytes # (Auto) 0.9L, Monocytes # (Auto) 0.9H, Eosinophils # (Auto) 0.6H, Basophils # (Auto) 0. 1, Nucleated Red Blood Cells % (auto) 0.0, Anion Gap 8, Glomerular Filtration Rate > 60.0, Blood Urea Nitrogen 21H, Creatinine 1.19, Sodium Level 140, Potassium Level 3.2L, Chloride Level 102, Carbon Dioxide Level 30, Calcium Level 8.5L, Magnesium Level 1.8 CBC/BMP Laboratory Tests 07/19/18 10:34 Red Blood Count 3.98 L, Mean Corpuscular Volume 91.2, Mean Corpuscular Hemoglobi n 31.2, Mean Corpuscular Hemoglobin Concent 34.2, Red Cell Distribution Width 14.5, Neutrophils (%) (Auto) 88.2 H, Lymphocytes (%) (Auto) 4.4 L, Monocytes (%) (Auto) 5.6 H, Eosinophils (%) (Auto) 1.0, Basophils (%) (Auto) 0.2, Neutrophils # (Auto) 11.9 H, Lymphocytes # (Auto) 0.6 L, Monocytes # (Auto) 0.8, Eosinophils # (Auto) 0.1, Basophils # (Auto) 0.0, Calcium Level 9.0, Total Creatine Kinase 9 2 07/19/18 16:07 Calcium Level 8.8, Total Creatine Kinase 78 07/20/18 05:29 Red Blood Count 3.54 L, Mean Corpuscular Volume 93.5, Mean Corpuscular Hemoglo bin 31.6, Mean Corpuscular Hemoglobin Concent 33.8, Red Cell Distribution Width 14.5, Neutrophils (%) (Auto) 75.5 H, Lymphocytes (%) (Auto) 8.7 L, Monocytes (%) (Auto) 8.5 H, Eosinophils (%) (Auto) 6.1 H, Basophils (%) (Auto) 0.6, Neutrophils # (Auto) 8.0 H, Lymphocytes # (Auto) 0.9 L, Monocytes # (Auto) 0.9 H, Eosinophils # (Auto) 0.6 H, Basophils # (Auto) 0.1, Calcium Level 8.5 L Microbiology Microbiology 07/19/18 Blood Culture, Received Pending 07/19/18 Blood Culture, Received Pending GME ATTESTATION GME ATTESTATION My faculty preceptor for this patient encounter was physically present during the encounter and was fully available. All aspects of the patient interview, examination, medical decision making process, and medical care plan development were reviewed and approved by the faculty preceptor. The faculty preceptor is aware and concurs with the plan as stated in the body of this note and will attest to such by his/her cosignature. ATTENDING NOTE I, Uriel Mccullough, have both independently examined this patient as well as reviewed the documentation. I have discussed in detail with the resident the findings and plan of treatment as documented by the resident. I agree with their findings and treatment plan. I will continue to follow the patient and offer further guidance to the patients care as necessary during this hospital stay. SHAMA KULKARNI DO July 20, 2018 09:04 URIEL MCCULLOUGH MD July 20, 2018 11:38
[2018-07-20] MEDS ORDERED: SLF 3 ML SYR IV PRN (10:15)
[2018-07-20 10:28] LABS: APPEARANCE, URINE HAZY (CLEAR); BACTERIA, URINE AUTO NEGATIVE (NEGATIVE); BILIRUBIN, URINE AUTO NEGATIVE (NEGATIVE); BLOOD, URINE BLOOD NEGATIVE (NEGATIVE); COLOR, URINE YELLOW (YELLOW); GLUCOSE, URINE (UA) AUTO 3+ mg/dL (NEGATIVE); KETONE, URINE AUTO NEGATIVE (NEGATIVE); LEUKOCYTE ESTERASE, URINE AUTO TRACE (NEGATIVE); NITRITE, URINE AUTO NEGATIVE (NEGATIVE); PROTEIN, URINE AUTO 3+ mg/dL (NEGATIVE); RBC, URINE AUTO 3 /HPF (0-3); SPECIFIC GRAVITY URINE AUTO 1.021 (1.002-1.035); SQUAMOUS EPITHELIAL CELL UR AU 0 /HPF (0-6); UROBILINOGEN, URINE AUTO 0.2 mg/dL (0.0-2.0); WBC, URINE AUTO 12 /HPF (0-3)
[2018-07-20] MEDS ORDERED: amLODIPine 5 MG TAB PO ONE (13:00)
--- NOTE | 2018-07-20 13:08 | REP ---
MR Brain without contrast HISTORY: Syncope COMPARISON : CT 07/19/2018 An area of increased signal intensity on diffusion and T2-weighted images is present in the right anterior leeanna. This is slightly decreased in signal intensity on ADC images and is consistent with a late acute infarction. Areas of increased signal intensity on T2-weighted images are present in the left basal ganglia, left thalamus, left cerebellum and left leeanna. These represent old lacunar infarctions. Areas of increased signal intensity on T2-weighted images are present in the periventricular and subcortical white matter , leeanna and medulla . This represents small-vessel ischemic disease. There is no intraparenchymal hemorrhage, mass or midline shift. The ventricular system and cortical sulci are dilated consistent with moderate volume loss. There is no extra cerebral collection. The sinuses are clear. IMPRESSION: 1. Small late acute right pontine infarction. 2. Old left basal ganglia, thalamic, cerebellar and pontine lacunar infarctions. 3. Small vessel ischemic disease per 4. Moderate volume loss. Electronically Signed by John Ruiz MD 07/20/2018 12:59 P
[2018-07-20] MEDS ORDERED: ASPIRIN 81 MG CHEW TABLET PO STA (13:24)
[2018-07-20] MEDS: GABAPENTIN 100 MG CAP PO SCH ×3 (13:42→20:33)
[2018-07-20] MEDS ORDERED: SLF 3 ML SYR IV SCH (14:00)
--- NOTE | 2018-07-20 14:50 | REP ---
CAROTID ULTRASOUND: Real-time ultrasound evaluation and duplex Doppler interrogation of the extracranial vasculature is performed. There is occlusion of the right internal carotid artery approximately 2-3 cm distal to the common carotid artery bifurcation. High resistance flow is seen throughout the right common carotid artery. There is relatively mild plaquing and narrowing in the left carotid bulb and internal carotid artery with no evidence of hemodynamically significant stenosis in the left internal carotid artery. Normal direction of flow is seen in both vertebral arteries. RIGHT LEFT Peak systolic velocity ICA 47.3 cm/s 61.4 cm/s occluded mid aspect End diastolic velocity ICA 4.4 cm/s 11.7 cm/s then occluded. Peak systolic velocity CCA 44.8 cm/s 54.8 cm/s Peak systolic velocity ECA 75.8 cm/s 82.6 cm/s IMPRESSION: Occlusion mid right internal carotid artery. No hemodynamically significant stenosis left internal carotid artery. Electronically Signed by Denys Vanessa MD 07/21/2018 09:25 A
[2018-07-20] MEDS: AZITHROMYCIN INJ 500 MG, VIAL MATE ADAPTER 1 EACH in D5W 250 ML IV SCH (17:30)
[2018-07-20] MEDS: cefTRIAXone SOD 2 GM in D5W MINI-BAG PLUS 50 ML IV SCH (18:59)
--- NOTE | 2018-07-20 18:59 | ECHO ---
DATE OF PROCEDURE: 07/20/2018 REFERRING PHYSICIAN: Dr. Uriel Del Angel INDICATION: Syncope. Height 180 cm, weight 113 kg. DIMENSIONS: IVS: 1.5 LV: 4.5 LVPW: 1.5 LA: 4.8 Aorta: 2.9 IVC: 2.5 Mitral E wave velocity: 143 A wave: 111 E prime septal: 3.8 E prime lateral: 5.9 FINDINGS: The study is of rather limited technical quality corresponding to patient's body habitus. The patient is in sinus rhythm. Left ventricle is of normal size. Moderate left ventricular hypertrophy is present. I estimate probably normal left ventricular (LV) systolic function based on very limited visualization. Especially apical segments were virtually not seen. Right ventricle does not appear grossly enlarged. There is moderate left atrial enlargement. Right atrium appears enlarged as well. There is bioprosthesis in aortic position based on available information. Unfortunately, visualization is very limited and I cannot comment on its structure. There are degenerative abnormalities of mitral valve with mitral annular calcifications. Tricuspid valve appears grossly normal. Pulmonic valve was not seen. No pericardial effusion is noted. Inferior vena cava is dilated, and there is minimal collapse with respiration indicative of high central venous pressure. Aortic root appears normal. Aortic arch and abdominal aorta were not seen. Doppler interrogation of aortic prosthesis reveals no insufficiency and mean gradient 13 mmHg, which is likely normal for bioprosthetic valve. There is mild mitral insufficiency and trace tricuspid insufficiency. Calculated pulmonary artery pressure is at least 60 mmHg, which would correspond to moderately severe pulmonary hypertension. Mitral inflow pattern and tissue Doppler imaging of mitral annulus revealed at least pseudo-normal if not restrictive filling pattern on mitral inflow indicative of very high LVEDP. CONCLUSIONS: 1. Study is of very limited technical quality. 2. Normal LV size with moderate left ventricular hypertrophy (LVH) and overall probably preserved LV systolic function. At least grade 2 diastolic dysfunction. 3. Reported bioprosthesis in aortic position that was very poorly seen. There is no insufficiency and mean gradient only 13 mmHg, which is likely within normal limits. 4. Mild mitral insufficiency. 5. Trace tricuspid insufficiency. 6. Very high central venous pressure and at least moderately severe pulmonary hypertension. COMMENT: Subacute bacterial endocarditis (SBE) prophylaxis is recommended. I cannot rule out that pulmonary hypertension is even worse than moderately severe at which point it potentially could be a cause of syncopal event.
[2018-07-20] MEDS: METOPROLOL TART 50 MG TAB PO SCH (20:01)
[2018-07-20] MEDS: PRAVASTATIN 20 MG TAB PO SCH (20:32)
[2018-07-20] MEDS: VITAMIN D 1,000 INTERNATIONAL UNITS TABLET PO SCH (20:32)
[2018-07-21] VITALS (7 sets, daily range): BP systolic 154–208; BP diastolic 68–100
[2018-07-21 00:08] LABS: Lyme Disease IgG/IgM Antibodie <0.91 ISR (0.00-0.90); Lyme Disease IgM Ab Quantitati <0.80 index (0.00-0.79)
[2018-07-21] MEDS: SLF 3 ML SYR IV SCH ×3 (06:11→21:04)
[2018-07-21] MEDS: HEPARIN SOD (PORCINE) 5000 UNITS/ML VIAL SC SCH ×3 (06:11→21:03)
[2018-07-21 06:23] LABS: BASO # 0.1 10^3/uL (0.0-0.2); BASO % 0.4 % (0.0-1.0); EOS # 0.7 10^3/uL (0.0-0.50); EOS % 5.7 % (0.0-3.0); HEMOGLOBIN 11.9 g/dl (13.5-17.5); LYMPH # 0.9 10^3/uL (1.5-4.5); LYMPH % 7.2 % (24.0-44.0); MEAN CORPUSCULAR HEMOGLOBIN 31.6 pg (27.0-33.0); MEAN CORPUSCULAR VOLUME 92.8 fl (80.0-96.0); MONO # 0.9 10^3/uL (0.0-0.8); MONO % 7.1 % (0.0-5.0); NEUTROPHILS # 9.5 10^3/uL (1.8-7.7); NEUTROPHILS % 79.1 % (36.0-66.0); PLATELET COUNT, AUTOMATED 245 10^3/uL (150-450); RED BLOOD COUNT 3.77 10^6/uL (4.30-6.10)
[2018-07-21 06:40] LABS: BLOOD UREA NITROGEN 16 MG/DL (7-18); CALCIUM LEVEL 8.4 MG/DL (8.8-10.2); CARBON DIOXIDE LEVEL 29 MEQ/L (21-32); CHLORIDE LEVEL 106 MEQ/L (98-107); GLOMERULAR FILTRATION RATE > 60.0 (>42); GLUCOSE, FASTING 64 MG/DL (70-100); MAGNESIUM LEVEL 1.7 MG/DL (1.8-2.4); POTASSIUM SERUM 3.4 MEQ/L (3.5-5.1); SODIUM LEVEL 143 MEQ/L (136-145)
[2018-07-21] MEDS: HumaLOG INSULIN (NovoLOG) PER UNIT SC SCH ×4 (07:30→19:44)
[2018-07-21] MEDS ORDERED: MAG SULF 1GM/100ML (MAG RUN) 1 GM in APPROPRIATE DILUENT 1 EA IV ONE (08:00)
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
[2018-07-21] MEDS ORDERED: POTASSIUM CHLORIDE 10 MEQ SR TABLET PO ONE (09:00)
[2018-07-21] MEDS: METOPROLOL TART 50 MG TAB PO SCH ×2 (09:28→19:49)
[2018-07-21] MEDS: OMEPRAZOLE 20 MG CAP PO SCH (09:29)
[2018-07-21] MEDS: OXcarbazepine 150 MG TAB PO SCH ×2 (09:29→19:49)
[2018-07-21] MEDS: GABAPENTIN 100 MG CAP PO SCH ×4 (09:29→19:49)
[2018-07-21] MEDS: ASPIRIN ENTERIC 325 MG TAB PO SCH (09:29)
[2018-07-21] MEDS: FLUoxetine 20 MG CAP PO SCH (09:29)
[2018-07-21] MEDS: LEVEMIR (INSULIN DETEMIR) 1 UNITS/0.01ML SC SCH (09:30)
[2018-07-21] MEDS: TORSEMIDE 10 MG TABLET PO SCH (09:32)
--- NOTE | 2018-07-21 09:48 | NUR ---
Recommend upgrade to level 2 mechanically altered (NDD) solids and thin liquids w/ compensatory small sips and head turn left. Recommend cancel MBSS Celsa Estrada. Reported to YOBANY Oakes & Dr. Del Angel. Addendum: 07/21/[address] [facility] Amended: Links added.
[2018-07-21] MEDS ORDERED: PROHANCE 279.3MG/ML 15ML VIAL (A9576) As Ordered ONE (10:42)
[2018-07-21] MEDS ORDERED: PROHANCE 279.3MG/ML 5ML VIAL (A9576) As Ordered ONE (10:42)
[2018-07-21] MEDS: hydrALAZINE INJ 20 MG/ML VIAL IV SCH ×3 (12:00→23:48)
--- NOTE | 2018-07-21 12:20 | REP ---
MRA carotids without and with contrast History: Pontine infarction. Contrast: ProHance 25 ml Unenhanced 3-D [id number] and contrast enhanced MR angiography were performed at the level of the carotid bifurcations. There is moderate stenosis of 50% of the right internal carotid artery at its origin. The origin of the right external carotid artery is normal. There is mild stenosis of 20% of the left internal carotid artery. The origin of the left external carotid artery is normal. The vertebral arteries are equal in size and patent. Impression: 1. Moderate stenosis of 50% of the right internal carotid artery at its origin. 2. Mild stenosis of 20% of the left internal carotid artery at its origin. Electronically Signed by John Ruiz MD 07/21/2018 12:12 P
[2018-07-21] MEDS: amLODIPine 5 MG TAB PO SCH (12:28)
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
--- NOTE | 2018-07-21 14:29 | REP ---
MRA BRAIN WITHOUT CONTRAST: HISTORY: Right pontine infarction. 3D [id number] MR angiography was performed at the level of the [place]. There is no aneurysm or arteriovenous malformation. There is loss of the normal hyperintense signal in the proximal A1 segment of the right anterior cerebral artery. This is consistent with severe stenosis or occlusion. Mild atherosclerotic disease involves the cavernous and supraclinoid internal carotid arteries, right middle cerebral artery trifurcation, and right posterior cerebral artery. The remaining major intracranial vessels are patent. The vertebral arteries are equal in size. IMPRESSION: 1. There is no aneurysm or arteriovenous malformation. 2. There is loss of the normal hyperintense signal in the proximal A1 segment of the right anterior cerebral artery. This is consistent with severe stenosis or occlusion. There is other atherosclerotic disease as described above. Electronically Signed by John Ruiz MD 07/21/2018 02:33 P
[2018-07-21] MEDS: AZITHROMYCIN INJ 500 MG, VIAL MATE ADAPTER 1 EACH in D5W 250 ML IV SCH (17:05)
[2018-07-21] MEDS: cefTRIAXone SOD 2 GM in D5W MINI-BAG PLUS 50 ML IV SCH (18:00)
[2018-07-21] MEDS: VITAMIN D 1,000 INTERNATIONAL UNITS TABLET PO SCH (19:49)
[2018-07-21] MEDS: PRAVASTATIN 20 MG TAB PO SCH (19:50)
[2018-07-21] MEDS: MORPHINE 4 MG/ML 1ML VIAL/SYRINGE (J2270) IV PRN (20:16)
[2018-07-21] MEDS ORDERED: LEVEMIR (INSULIN DETEMIR) 1 UNITS/0.01ML SC SCH (21:00)
[2018-07-22] VITALS (7 sets, daily range): BP systolic 136–206; BP diastolic 58–80
[2018-07-22] MEDS: DEXTROSE 50% 50 ML SYRINGE IV PRN ×3 (04:03→11:56)
[2018-07-22] MEDS: SLF 3 ML SYR IV SCH ×3 (05:19→21:48)
[2018-07-22] MEDS: HEPARIN SOD (PORCINE) 5000 UNITS/ML VIAL SC SCH ×3 (05:19→21:48)
[2018-07-22] MEDS: hydrALAZINE INJ 20 MG/ML VIAL IV SCH ×4 (05:19→23:56)
[2018-07-22 05:43] LABS: BASO % 0.3 % (0.0-1.0); EOS # 0.5 10^3/uL (0.0-0.50); EOS % 4.3 % (0.0-3.0); HEMATOCRIT 31.6 % (42.0-52.0); HEMOGLOBIN 10.5 g/dl (13.5-17.5); LYMPH # 0.7 10^3/uL (1.5-4.5); LYMPH % 5.6 % (24.0-44.0); MEAN CORPUSCULAR HEMOGLOBIN 31.3 pg (27.0-33.0); MEAN CORPUSCULAR HGB CONC 33.2 g/dl (32.0-36.5); MONO % 8.6 % (0.0-5.0); NEUTROPHILS # 9.5 10^3/uL (1.8-7.7); NEUTROPHILS % 80.8 % (36.0-66.0); PLATELET COUNT, AUTOMATED 250 10^3/uL (150-450); RED BLOOD COUNT 3.36 10^6/uL (4.30-6.10); WHITE BLOOD COUNT 11.7 10^3/uL (4.0-10.0)
[2018-07-22 06:03] LABS: CALCIUM LEVEL 7.9 MG/DL (8.8-10.2); CREATININE FOR GFR 1.28 MG/DL (0.70-1.30); GLOMERULAR FILTRATION RATE 59.1 (>42); MAGNESIUM LEVEL 1.8 MG/DL (1.8-2.4); POTASSIUM SERUM 3.6 MEQ/L (3.5-5.1)
[2018-07-22] MEDS: HumaLOG INSULIN (NovoLOG) PER UNIT SC SCH ×4 (07:30→21:00)
[2018-07-22] MEDS ORDERED: LEVEMIR (INSULIN DETEMIR) 1 UNITS/0.01ML SC SCH (09:00)
[2018-07-22] MEDS: METOPROLOL TART 50 MG TAB PO SCH ×2 (09:00→21:47)
[2018-07-22] MEDS: amLODIPine 5 MG TAB PO SCH (09:00)
--- NOTE | 2018-07-22 09:25 | NUR ---
Recommend downgrade nectar thickened liquids, will complete MBSS cookie swallow per MD order. Per RN and pt report this morning, he is still intermittently coughing w/ thin liquids, even w/ compensatory head turn to left. Addendum: 07/22/18 at 0926 by [facility] Amended: Links added.
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
[2018-07-22] MEDS: OXcarbazepine 150 MG TAB PO SCH ×2 (09:55→21:48)
[2018-07-22] MEDS: OMEPRAZOLE 20 MG CAP PO SCH (09:55)
[2018-07-22] MEDS: TORSEMIDE 10 MG TABLET PO SCH (09:55)
[2018-07-22] MEDS: ASPIRIN ENTERIC 325 MG TAB PO SCH (09:55)
[2018-07-22] MEDS: GABAPENTIN 100 MG CAP PO SCH ×4 (09:56→21:47)
[2018-07-22] MEDS: FLUoxetine 20 MG CAP PO SCH (09:56)
--- NOTE | 2018-07-22 09:57 | REP ---
Clinical: Aspiration pneumonia. Technique: PA and lateral. Comparison: 07/19/2018. Findings: Stable cardiomegaly. Bilateral lower lobe air space disease (left greater than right) suggest the possibility of atelectasis versus pneumonia. No effusion. No pneumothorax. Evidence for prior sternotomy and aortic valve repair. No pneumothorax. Skeletal structures intact. Impression: Bibasilar opacities suggest atelectasis versus pneumonia. Electronically Signed by Merrill Nina MD 07/22/2018 09:49 A
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
[2018-07-22] MEDS: MOXIFLOXACIN HCL 400 MG in APPROPRIATE DILUENT 1 EA IV SCH (11:56)
[2018-07-22] MEDS ORDERED: NS 250 ML IV ONE (12:15)
--- NOTE | 2018-07-22 12:56 | REP ---
Clinical: Left-sided weakness. Comparison: 07/19/2018 . Findings: Age-related atrophy with periventricular leukomalacia and microvascular ischemic changes are appreciated. The ventricles and sulci are symmetric. Vanessa-white differentiation is maintained. There is no evidence for acute intracranial hemorrhage, mass/mass effect, pathology or infarction. No extra-axial fluid collection. Calvarium is intact. Paranasal sinuses and mastoid air cells are clear. Impression: Age related atrophy and microvascular ischemic changes. No acute intracranial hemorrhage, infarction, or mass/mass effect. Electronically Signed by Merrill Nina MD 07/22/2018 12:47 P
[2018-07-22] MEDS ORDERED: VARIBAR NECTAR 40% w/v 240ML SUSP BTL As Ordered ONE (14:54)
[2018-07-22] MEDS ORDERED: VARIBAR PUDDING 40% w/v 230ML TUBE As Ordered ONE (14:54)
[2018-07-22] MEDS ORDERED: E-Z-PAQUE 96% w/w SUSP 176GM BTL As Ordered ONE (14:54)
[2018-07-22] MEDS ORDERED: BARIUM SULFATE 700 MG TABLET (E-Z-DISK) As Ordered ONE (14:59)
[2018-07-22] MEDS: MORPHINE 4 MG/ML 1ML VIAL/SYRINGE (J2270) IV PRN (16:11)
--- NOTE | 2018-07-22 16:55 | NUR ---
Recommend level 2 mechanically altered (NDD) solids and nectar thick liquids w/ small sips. Positioning upright w/ head turn left. Medications whole in puree assist. Esophagram barium swallow and endoscopy recommended to assess structural integrity and function of esophagus. Pt w/ moderate oropharyngeal dysphagia characterized by premature loss of bolus, significantly delayed swallow, and penetration of both thin and nectar thick liquids. Degree of penetration was reduced w/ nectar thick liquids. No aspiration was observed on exam. Residuals were insignificant. Pt refused regular solids d/t reported hx of dysphagia w/ regular solids and that he avoids these at home. Barium tablet was passed on initial swallow w/ puree assist. Dysphagia tx for additional training of compensatory head turn left prior to liquid upgrade. Addendum: 07/22/[address] [facility] Amended: Links added.
--- NOTE | 2018-07-22 19:31 | REPVR ---
EXAM: MR Head Without Contrast EXAM DATE/TIME: 07/22/2018 1:26 PM CLINICAL HISTORY: 68 years old, male; Signs and symptoms; Speech disturbance; Slurred speech; Patient HX: Worsening symptoms, HX acute CVA; Additional info: Worsening left sided symptoms / slurred speech TECHNIQUE: Imaging protocol: MR of the head without contrast. COMPARISON: MRI-Brain without Contrast 07/20/2018 11:54 AM FINDINGS: Brain: There is a 1.5 CM by 8mm area of acute stroke anterior right side of leeanna which is similar to the examination of 07/20/2018. There is a round central area of bright signal intensity in the leeanna on the diffusion sequence that has increased since 07/20/2018 exam. There is bright signal intensity right temporal lobe on the FLAIR sequence consistent with old ischemic change. There are large areas of bright signal intensity throughout the white matter and very extensive consistent with chronic ischemic changes. The vessels of the [place] have a normal signal void. There some prominence of the ventricles probably secondary to atrophy and unchanged. IMPRESSION: 1. 1.5 CM by 8 mm area of acute stroke anterior right side of the leeanna this is similar to the MRI examination of 07/20/2018. Small central rounded area of acute stroke bright signal intensity on diffusion weighting slightly increased in size since 07/20/2018. 2. There is severe chronic ischemic change including the right temporal lobe. Electronically signed by: Fabio Alas On 07/22/2018 19:30:52 PM
[2018-07-22] MEDS: VITAMIN D 1,000 INTERNATIONAL UNITS TABLET PO SCH (21:47)
[2018-07-22] MEDS: PRAVASTATIN 20 MG TAB PO SCH (21:47)
[2018-07-23 03:57] VITALS: BP 143/63
[2018-07-23 05:46] LABS: BASO % 0.3 % (0.0-1.0); EOS # 0.6 10^3/uL (0.0-0.50); EOS % 5.2 % (0.0-3.0); HEMATOCRIT 31.5 % (42.0-52.0); HEMOGLOBIN 10.2 g/dl (13.5-17.5); LYMPH # 0.8 10^3/uL (1.5-4.5); LYMPH % 6.6 % (24.0-44.0); MEAN CORPUSCULAR HGB CONC 32.4 g/dl (32.0-36.5); MEAN CORPUSCULAR VOLUME 92.6 fl (80.0-96.0); MONO % 8.5 % (0.0-5.0); NEUTROPHILS # 9.2 10^3/uL (1.8-7.7); PLATELET COUNT, AUTOMATED 262 10^3/uL (150-450); WHITE BLOOD COUNT 11.7 10^3/uL (4.0-10.0)
[2018-07-23] MEDS: hydrALAZINE INJ 20 MG/ML VIAL IV SCH ×4 (06:00→23:40)
[2018-07-23] MEDS: SLF 3 ML SYR IV SCH ×3 (06:03→21:58)
[2018-07-23] MEDS: HEPARIN SOD (PORCINE) 5000 UNITS/ML VIAL SC SCH ×3 (06:11→20:47)
[2018-07-23 06:19] LABS: CALCIUM LEVEL 8.2 MG/DL (8.8-10.2); CREATININE FOR GFR 1.28 MG/DL (0.70-1.30); GLOMERULAR FILTRATION RATE 59.1 (>42); MAGNESIUM LEVEL 1.9 MG/DL (1.8-2.4); POTASSIUM SERUM 3.8 MEQ/L (3.5-5.1)
[2018-07-23 08:00] VITALS: BP 148/68
--- NOTE | 2018-07-23 08:09 | IPNPDOC ---
Subjective Date Seen The patient was seen on 07/23/18. Subjective Chief Complaint/HPI Pt is examined at bedside. He reported that he coughs up clear sputum only when he eats and that he still has dysphagia especially when swallowing liquids. Pt denies any visual changes, lightheadedness, dizziness, headache, or weakness. He said that he has not had any ear pain since yesterday ENT: Reports: Dysphagia; Denies: Head Aches, Ear Pain Pulmonary: Reports: Cough; Denies: Dyspnea Cardiovascular: Denies: Lt Headedness Gastrointestinal: Denies: Nausea, Vomiting Neurological: Reports: Change in speech; Denies: Weakness, Numbness Objective Physical Examination General Exam: Positive: Alert, Cooperative, No Acute Distress Eye Exam: Positive: Conjunctiva & lids normal, EOMI; Negative: Sclera icteric ENT Exam: Positive: Atraumatic, Mucous membr. moist/pink Neck Exam: Positive: Supple Chest Exam: Positive: Clear to auscultation, Normal air movement; Negative: Rales, Rhonchi, Wheezing Heart Exam: Positive: Rate Normal, Regular Rhythm, Normal S1, Normal S2; Negative: Murmurs Extremity Exam: Positive: Normal pulses Skin Exam: Positive: Nl turgor and temperature; Negative: Breakdown, Lesion Neuro Exam: Positive: Cranial Nerves 3-12 NL, Other (left upper extremity tripceps strength4/5, the rest of the extremities appear to be grossly 5/5); Negative: Normal Speech Psych Exam: Positive: Mental status NL, Mood NL, Memory Intact, Oriented x 3 A-FIB/CHADSVASC A-FIB History Current/History of A-Fib/PAF?: No Assessment /Plan Problems (1) Near syncope Status: Acute Problem Text: Likely 2/2 to postherpetic neuralgia vs shingles vestibular neuritis vs diabetic autonomic neuropathy vs r/o UTI. - intermittent N/V/dizziness/lightheadedness/balance problem - Mild leukocytosis improving with no fever/chills - Loop recorder showed no abnormal event on the day of presyncope; July 06 pt had HR in the 30s for 11 sec at 8AM - Pt did have prior episode of similar presentations w/ admissions to hospital attributed to UTI at the time. - UA with reflex urine cx, EEG, echo, carotid duplex, and MRI brain ordered. No abnormalities shown on CT head. - Blood cx pending. - Cont pt on outpt Valacyclovir med - start scopolamine patch (2) Shingles outbreak Problem Text: - On whole right sided face and right shoulder; reported resolution of lesions last week but still has intermittent right sided ear pain. - No active lesions/vesicles noted in external ear canal on right - Cont outpt med Valacyclovir (3) Leukocytosis Problem Text: Trending down; possibly 2/2 infectious etiology - possibly 2/2 community acquired pneumonia; coverage for gram negative pneumonia, possibly 2/2 reactive etiology -shinglesX4 weeks with CXR shows left lower lobe atelectasis/infiltrate -Pt on Ceftriaxone and Azithromycin based on CT findings -pt remains afebrile (4) CAD (coronary artery disease) of bypass graft Status: Chronic Problem Text: Continue metoprolol, statin, and aspirin (5) Hypertension Status: Chronic Problem Text: BP 160/80 this morning; HTN - SBPs in the 200s in the ER likely d/t missing morning medications - Troponin negative x2 set - EKG reviewed and unchanged - Cont Metoprolol, Clonidine, and Amlodipine (6) History of cerebrovascular accident Status: Chronic Problem Text: Continue pravastatin and ASA (7) Diabetes mellitus type 2, insulin dependent Status: Chronic Problem Text: - On insulin detemir 40 units BID; glucose check and sliding scale - hypoglycemia protocol (8) Dyslipidemia Status: Chronic Problem Text: Continue home med Pravastatin (9) History of prostate cancer Status: Chronic Problem Text: s/p radiation in 2010 (10) Chronic GERD Status: Chronic Problem Text: Continue Omeprazole 20mg QD Plan/VTE VTE Prophylaxis Ordered?: Yes VS, I&O, 24H, Fishbone Vital Signs/I&O Vital Signs Date Time Temp Pulse Resp B/P (MAP) Pulse Ox O2 Delivery O2 Flow Rate FiO2 07/23/18 06:00 182/70 07/23/18 03:57 97.3 66 18 92 07/19/18 15:20 Room Air I&O- Last 24 Hours up to 6 AM 07/23/18 06:00 Intake Total 720 ml Output Total 100 ml Balance 620 ml Laboratory Data 24H LABS Laboratory Tests 2 07/22/18 08:45: Bedside Glucose (Misc Panel) 64L 07/22/18 09:19: Bedside Glucose (Misc Panel) 106 07/22/18 11:32: Bedside Glucose (Misc Panel) 98 07/22/18 13:39: Bedside Glucose (Misc Panel) 145H 07/22/18 18:10: Bedside Glucose (Misc Panel) 153H 07/22/18 20:47: Bedside Glucose (Misc Panel) 181H 07/22/18 23:37: Bedside Glucose (Misc Panel) 183H 07/23/18 03:56: Bedside Glucose (Misc Panel) 180H 07/23/18 05:24: Immature Granulocyte % (Auto) 0.4, White Blood Count 11.7H, Red Blood Count 3.40L, Hemoglobin 10.2L, Hematocrit 31.5L, Mean Corpuscular Volume 92.6, Mean Corpuscular Hemoglobin 30.0, Mean Corpuscular Hemoglobin Concent 32.4, Red Cell Distribution Width 14.8H, Platelet Count 262, Neutrophils (%) (Auto) 79.0H, Lymphocytes (%) (Auto) 6.6L, Monocytes (%) (Auto) 8.5H, Eosinophils (%) (Auto) 5.2H, Basophils (%) (Auto) 0.3, Neutrophils # (Auto) 9.2H, Lymphocytes # (Auto) 0.8L, Monocytes # (Auto) 1.0H, Eosinophils # (Auto) 0.6H, Basophils # (Auto) 0.0, Nucleated Red Blood Cells % (auto) 0.0, Anion Gap 5L, Glomerular Filtration Rate 59.1, Blood Urea Nitrogen 15, Creatinine 1.28, Sodium Level 140, Potassium Level 3.8, Chloride Level 105, Carbon Dioxide Level 30, Calcium Level 8.2L, Magnesium Level 1.9 CBC/BMP Laboratory Tests 07/23/18 05:24 Red Blood Count 3.40 L, Mean Corpuscular Volume 92.6, Mean Corpuscular Hemoglobin 30.0, Mean Corpuscular Hemoglobin Concent 32.4, Red Cell Distribution Width 14.8 H, Neutrophils (%) (Auto) 79.0 H, Lymphocytes (%) (Auto) 6.6 L, Monocytes (%) (Auto) 8.5 H, Eosinophils (%) (Auto) 5.2 H, Basophils (%) (Auto) 0.3, Neutrophils # (Auto) 9.2 H, Lymphocytes # (Auto) 0.8 L, Monocytes # (Auto) 1.0 H, Eosinophils # (Auto) 0.6 H, Basophils # (Auto) 0.0, Calcium Level 8.2 L Microbiology Microbiology 07/20/18 Blood Fungal Culture, Received Pending 07/19/18 Blood Culture - Preliminary, Resulted No Growth after 72 hours. All specime... 07/19/18 Blood Culture - Preliminary, Resulted No Growth after 72 hours. All specime... 07/20/18 Fungal Smear, Received Pending 07/20/18 Fungal Culture, Received Pending 07/20/18 Urine Culture - Final, Complete SHAMA KULKARNI DO July 23, 2018 08:09
[2018-07-23] MEDS: LEVEMIR (INSULIN DETEMIR) 1 UNITS/0.01ML SC SCH ×2 (08:50→20:47)
[2018-07-23] MEDS: HumaLOG INSULIN (NovoLOG) PER UNIT SC SCH ×4 (08:50→20:47)
[2018-07-23] MEDS: FLUoxetine 20 MG CAP PO SCH (08:51)
[2018-07-23] MEDS: GABAPENTIN 100 MG CAP PO SCH ×4 (08:51→20:47)
[2018-07-23] MEDS: SCOPOLAMINE 1MG TRANSDERMAL PATCH TOP SCH (08:51)
[2018-07-23] MEDS: TORSEMIDE 10 MG TABLET PO SCH (08:52)
[2018-07-23] MEDS: METOPROLOL TART 50 MG TAB PO SCH ×2 (08:52→20:40)
[2018-07-23] MEDS: OXcarbazepine 150 MG TAB PO SCH ×2 (08:52→20:47)
[2018-07-23] MEDS: OMEPRAZOLE 20 MG CAP PO SCH (08:52)
[2018-07-23] MEDS: ASPIRIN ENTERIC 325 MG TAB PO SCH (08:52)
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
--- NOTE | 2018-07-23 10:57 | NUR ---
Recommend downgrade to pureed solids and honey thick liquids w/ small bite/sip and head turn left. Medications whole in puree assist please. Recommend esophagram barium swallow and endoscopy d/t suspected esophageal complications observed on [facility] cookie swallow. Per pt and attending RN, pt w/ significant coughing episode during breakfast this AM. Although pt tolerated thin liquids, nectar thick liquids, pureed solids, mechanically altered solids, and mechanical soft solids (NDD) on [facility] cookie swallow 07/22/18, he continues to inconsistently show overt signs of aspiration. For this reason, diet downgrade is recommended and dysphagia tx will continue to train compensatory strategies. Addendum: 07/23/[address] [facility] Amended: Links added.
[2018-07-23] MEDS: MOXIFLOXACIN HCL 400 MG in APPROPRIATE DILUENT 1 EA IV SCH (11:03)
[2018-07-23 12:00] VITALS: BP 168/76
[2018-07-23 16:00] VITALS: BP 168/56
[2018-07-23 20:00] VITALS: BP 168/58
[2018-07-23] MEDS: VITAMIN D 1,000 INTERNATIONAL UNITS TABLET PO SCH (20:47)
[2018-07-23] MEDS: PRAVASTATIN 20 MG TAB PO SCH (20:47)
[2018-07-23] MEDS: MORPHINE 4 MG/ML 1ML VIAL/SYRINGE (J2270) IV PRN (20:51)
[2018-07-23 23:59] VITALS: BP 184/78
[2018-07-24 04:00] VITALS: BP 180/81
[2018-07-24] MEDS: hydrALAZINE INJ 20 MG/ML VIAL IV SCH ×2 (05:53→12:00)
[2018-07-24] MEDS: SLF 3 ML SYR IV SCH ×3 (05:53→21:32)
[2018-07-24] MEDS: HEPARIN SOD (PORCINE) 5000 UNITS/ML VIAL SC SCH ×3 (05:53→20:50)
[2018-07-24 05:54] LABS: BASO % 0.3 % (0.0-1.0); EOS # 0.3 10^3/uL (0.0-0.50); EOS % 2.6 % (0.0-3.0); HEMATOCRIT 30.7 % (42.0-52.0); HEMOGLOBIN 10.1 g/dl (13.5-17.5); LYMPH # 0.6 10^3/uL (1.5-4.5); LYMPH % 4.8 % (24.0-44.0); MEAN CORPUSCULAR HEMOGLOBIN 30.7 pg (27.0-33.0); MEAN CORPUSCULAR HGB CONC 32.9 g/dl (32.0-36.5); MEAN CORPUSCULAR VOLUME 93.3 fl (80.0-96.0); MONO # 1.1 10^3/uL (0.0-0.8); MONO % 8.7 % (0.0-5.0); NEUTROPHILS # 10.8 10^3/uL (1.8-7.7); NEUTROPHILS % 83.1 % (36.0-66.0); PLATELET COUNT, AUTOMATED 252 10^3/uL (150-450); RED BLOOD COUNT 3.29 10^6/uL (4.30-6.10); WHITE BLOOD COUNT 12.9 10^3/uL (4.0-10.0)
[2018-07-24 06:10] LABS: CALCIUM LEVEL 8.6 MG/DL (8.8-10.2); CREATININE FOR GFR 1.39 MG/DL (0.70-1.30); GLOMERULAR FILTRATION RATE 53.8 (>42); MAGNESIUM LEVEL 1.8 MG/DL (1.8-2.4); POTASSIUM SERUM 3.9 MEQ/L (3.5-5.1)
[2018-07-24] MEDS ORDERED: ONDANSETRON 4MG/2ML VIAL (J2405) IV ONE (07:00)
[2018-07-24 08:00] VITALS: BP 172/75
[2018-07-24] MEDS ORDERED: LR 1,000 ML IV SCH (08:00)
[2018-07-24] MEDS ORDERED: ONDANSETRON 4MG/2ML VIAL (J2405) IV PRN (08:45)
[2018-07-24] MEDS ORDERED: LEVEMIR (INSULIN DETEMIR) 1 UNITS/0.01ML SC SCH (09:00)
--- NOTE | 2018-07-24 09:43 | REP ---
Clinical: Dyspnea. Technique: PA and lateral. Comparison: 07/22/2018. Findings: Patchy perihilar and bibasilar opacities suggest multifocal pneumonia and consistent with the recent given history of aspiration. Small effusion cannot be excluded. Mediastinum and cardiac silhouette are stable with cardiomegaly and evidence of prior sternotomy and aortic valve repair. Skeletal structures intact. Impression: Patchy bibasilar opacities suggest multifocal pneumonia. Possible small effusion. Electronically Signed by Merrill Nina MD 07/24/2018 09:35 A
[2018-07-24] MEDS: OMEPRAZOLE 20 MG CAP PO SCH (09:59)
[2018-07-24] MEDS: GABAPENTIN 100 MG CAP PO SCH ×2 (09:59→14:26)
[2018-07-24] MEDS: ASPIRIN ENTERIC 325 MG TAB PO SCH (09:59)
[2018-07-24] MEDS: FLUoxetine 20 MG CAP PO SCH (09:59)
[2018-07-24] MEDS: OXcarbazepine 150 MG TAB PO SCH ×2 (10:00→20:50)
[2018-07-24] MEDS: METOPROLOL TART 50 MG TAB PO SCH ×2 (10:00→20:51)
[2018-07-24] MEDS: HumaLOG INSULIN (NovoLOG) PER UNIT SC SCH ×4 (10:01→20:50)
[2018-07-24] MEDS ORDERED: TORSEMIDE 20 MG TAB PO ONE (11:00)
[2018-07-24] MEDS: MOXIFLOXACIN HCL 400 MG in APPROPRIATE DILUENT 1 EA IV SCH (11:29)
[2018-07-24 12:00] VITALS: BP 154/82
[2018-07-24] MEDS ORDERED: FUROSEMIDE 40 MG/4 ML VIAL (J1940) IV ONE (12:00)
[2018-07-24 14:43] VITALS: BP 146/67
[2018-07-24 15:04] LABS: ABG BASE EXCESS 2.8 (-2.0-2.0); ABG HCO3 27.1 MEQ/L (22.0-26.0); ABG O2 SATURATION 90.4 % (95.0-99.0); ABG PARTIAL PRESSURE CO2 40.4 mmHg (35.0-45.0); ABG PARTIAL PRESSURE O2 59.2 mmHg (75.0-100.0); ABG STANDARD HCO3 26.8 MEQ/L (22.0-26.0); ABG TOTAL CO2 28.3 MEQ/L (23.0-31.0); ABG pH (ARTERIAL) 7.444 UNITS (7.350-7.450)
[2018-07-24 15:18] LABS: BASO % 0.3 % (0.0-1.0); EOS # 0.3 10^3/uL (0.0-0.50); EOS % 2.9 % (0.0-3.0); HEMATOCRIT 30.9 % (42.0-52.0); HEMOGLOBIN 10.2 g/dl (13.5-17.5); LYMPH # 0.5 10^3/uL (1.5-4.5); LYMPH % 4.7 % (24.0-44.0); MEAN CORPUSCULAR HEMOGLOBIN 30.9 pg (27.0-33.0); MEAN CORPUSCULAR VOLUME 93.6 fl (80.0-96.0); MONO # 1.1 10^3/uL (0.0-0.8); MONO % 9.6 % (0.0-5.0); NEUTROPHILS # 9.1 10^3/uL (1.8-7.7); NEUTROPHILS % 82.1 % (36.0-66.0); PLATELET COUNT, AUTOMATED 257 10^3/uL (150-450); WHITE BLOOD COUNT 11.1 10^3/uL (4.0-10.0)
[2018-07-24 15:42] LABS: ALBUMIN 2.3 GM/DL (3.2-5.2); ALT/SGPT 20 U/L (12-78); BILIRUBIN,TOTAL 0.4 MG/DL (0.2-1.0); BLOOD UREA NITROGEN 18 MG/DL (7-18); CALCIUM LEVEL 7.9 MG/DL (8.8-10.2); CARBON DIOXIDE LEVEL 29 MEQ/L (21-32); CHLORIDE LEVEL 106 MEQ/L (98-107); CK-MB VALUE MASS < 1.0 NG/ML (<3.6); CPK CREATINE PHOSPHOKINASE 27 U/L (39-308); CREATININE FOR GFR 1.54 MG/DL (0.70-1.30); GLOMERULAR FILTRATION RATE 47.8 (>42); GLUCOSE, FASTING 227 MG/DL (70-100); MAGNESIUM LEVEL 1.9 MG/DL (1.8-2.4); POTASSIUM SERUM 3.9 MEQ/L (3.5-5.1); SODIUM LEVEL 142 MEQ/L (136-145); TOTAL PROTEIN 5.8 GM/DL (6.4-8.2); TROPONIN I < 0.02 NG/ML (< 0.10)
--- NOTE | 2018-07-24 15:52 | REP ---
Clinical: Altered mental status and confusion. Comparison: 07/22/2018 . Findings: Age-related atrophy and microvascular ischemic changes are appreciated. The ventricles and sulci are symmetric. Vanessa-white differentiation is maintained. There is no evidence for acute intracranial hemorrhage, mass/mass effect, pathology or infarction. No extra-axial fluid collection. Calvarium is intact. Paranasal sinuses and mastoid air cells are clear. Impression: Atrophy and microvascular ischemic changes. No acute intracranial hemorrhage, infarction, or mass/mass effect. Electronically Signed by Merrill Nina MD 07/24/2018 03:43 P
--- NOTE | 2018-07-24 15:57 | REP ---
Clinical: Fluid overload. Technique: Portable semiupright view. Findings: Perihilar opacities with indistinct pulmonary vasculature and cephalization consistent with pulmonary edema. Mild cardiomegaly cannot be excluded. No obvious effusion. No pneumothorax. Skeletal structures intact. Evidence of prior sternotomy. Impression: Findings compatible with pulmonary edema. Electronically Signed by Merrill Nina MD 07/24/2018 03:49 P
[2018-07-24 16:00] VITALS: BP 162/88
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
--- NOTE | 2018-07-24 16:17 | ECGEPIP ---
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
[2018-07-24 20:00] VITALS: BP 149/82
[2018-07-24] MEDS: LEVEMIR (INSULIN DETEMIR) 1 UNITS/0.01ML SC SCH (20:50)
[2018-07-24] MEDS: PRAVASTATIN 20 MG TAB PO SCH (20:50)
[2018-07-24] MEDS ORDERED: ENTER DRUG NAME HERE (PATIENT'S OWN MED) OU SCH (21:00)
[2018-07-25] VITALS (10 sets, daily range): BP systolic 140–195; BP diastolic 64–86
[2018-07-25] MEDS: SLF 3 ML SYR IV SCH ×3 (05:19→21:09)
[2018-07-25] MEDS: HEPARIN SOD (PORCINE) 5000 UNITS/ML VIAL SC SCH ×3 (05:19→21:08)
[2018-07-25] MEDS: ACETAMINOPHEN TAB 650MG DOSE (2X325MG) PO PRN ×2 (05:43→23:44)
[2018-07-25 05:50] LABS: ABG BASE EXCESS 3.4 (-2.0-2.0); ABG HCO3 27.8 MEQ/L (22.0-26.0); ABG O2 SATURATION 96.7 % (95.0-99.0); ABG PARTIAL PRESSURE CO2 41.6 mmHg (35.0-45.0); ABG PARTIAL PRESSURE O2 90.2 mmHg (75.0-100.0); ABG STANDARD HCO3 27.5 MEQ/L (22.0-26.0); ABG TOTAL CO2 29.1 MEQ/L (23.0-31.0); ABG pH (ARTERIAL) 7.443 UNITS (7.350-7.450)
[2018-07-25 07:11] LABS: BASO % 0.2 % (0.0-1.0); EOS # 0.6 10^3/uL (0.0-0.50); EOS % 5.2 % (0.0-3.0); HEMATOCRIT 30.1 % (42.0-52.0); HEMOGLOBIN 9.7 g/dl (13.5-17.5); LYMPH # 0.5 10^3/uL (1.5-4.5); MEAN CORPUSCULAR HEMOGLOBIN 30.3 pg (27.0-33.0); MEAN CORPUSCULAR HGB CONC 32.2 g/dl (32.0-36.5); MEAN CORPUSCULAR VOLUME 94.1 fl (80.0-96.0); MONO % 9.6 % (0.0-5.0); NEUTROPHILS # 8.4 10^3/uL (1.8-7.7); NEUTROPHILS % 79.5 % (36.0-66.0); PLATELET COUNT, AUTOMATED 271 10^3/uL (150-450); WHITE BLOOD COUNT 10.6 10^3/uL (4.0-10.0)
[2018-07-25 07:31] LABS: CALCIUM LEVEL 8.4 MG/DL (8.8-10.2); CREATININE FOR GFR 1.49 MG/DL (0.70-1.30); GLOMERULAR FILTRATION RATE 49.6 (>42); MAGNESIUM LEVEL 1.8 MG/DL (1.8-2.4); POTASSIUM SERUM 3.7 MEQ/L (3.5-5.1)
[2018-07-25] MEDS: OXcarbazepine 150 MG TAB PO SCH ×2 (08:22→21:08)
[2018-07-25] MEDS: OMEPRAZOLE 20 MG CAP PO SCH (08:22)
[2018-07-25] MEDS: hydrALAZINE INJ 20 MG/ML VIAL IV SCH ×3 (08:22→20:00)
[2018-07-25] MEDS: METOPROLOL TART 50 MG TAB PO SCH ×3 (08:22→21:00)
[2018-07-25] MEDS: ASPIRIN ENTERIC 325 MG TAB PO SCH (08:22)
[2018-07-25] MEDS: LEVEMIR (INSULIN DETEMIR) 1 UNITS/0.01ML SC SCH ×2 (08:23→21:07)
[2018-07-25] MEDS: HumaLOG INSULIN (NovoLOG) PER UNIT SC SCH ×4 (08:24→21:08)
[2018-07-25] MEDS: FUROSEMIDE 40 MG/4 ML VIAL (J1940) IV SCH ×2 (09:55→17:17)
--- NOTE | 2018-07-25 10:08 | NOCOX ---
DATE OF SERVICE: 07/24/2018 to 07/25/2018 The test was initially started on room air; however, eventually 3 liters of oxygen was applied around 0050 a.m. Resting oxygen saturation on room air prior to sleep in the Semi-Medina's position, oxygen saturation was 86%. There were variable desaturations throughout the evening and significant heart rate variability. The oxygen saturation ranged from 74% to 100%. The lowest pulse was 64. The longest time spent continuous with an oxygen saturation less than 88% was 13 minutes and 20 seconds. The total time with an oxygen saturation less than 88% was 30 minutes and 56 seconds. On 3 liters of oxygen, oxygen saturation was still variable, but had improved. The majority of the time on 3 liters of oxygen the oxygen saturation was above 90%. IMPRESSION: Variable oxygen desaturation with improvement with supplemental oxygen. Would recommend supplemental oxygen at night. If there is concern for underlying obstructive sleep apnea, would refer for formal polysomnogram.
[2018-07-25] MEDS: MOXIFLOXACIN HCL 400 MG in APPROPRIATE DILUENT 1 EA IV SCH (10:45)
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
[2018-07-25] MEDS: PRAVASTATIN 20 MG TAB PO SCH (21:08)
[2018-07-26] VITALS (9 sets, daily range): BP systolic 150–188; BP diastolic 60–82
[2018-07-26] MEDS: hydrALAZINE INJ 20 MG/ML VIAL IV SCH ×4 (02:00→20:04)
[2018-07-26 05:24] LABS: BASO % 0.3 % (0.0-1.0); EOS # 0.8 10^3/uL (0.0-0.50); EOS % 6.8 % (0.0-3.0); HEMATOCRIT 30.1 % (42.0-52.0); HEMOGLOBIN 9.6 g/dl (13.5-17.5); LYMPH # 0.5 10^3/uL (1.5-4.5); LYMPH % 4.9 % (24.0-44.0); MEAN CORPUSCULAR HEMOGLOBIN 29.9 pg (27.0-33.0); MEAN CORPUSCULAR HGB CONC 31.9 g/dl (32.0-36.5); MEAN CORPUSCULAR VOLUME 93.8 fl (80.0-96.0); MONO # 1.1 10^3/uL (0.0-0.8); MONO % 9.7 % (0.0-5.0); NEUTROPHILS # 8.6 10^3/uL (1.8-7.7); NEUTROPHILS % 77.9 % (36.0-66.0); PLATELET COUNT, AUTOMATED 271 10^3/uL (150-450); RED BLOOD COUNT 3.21 10^6/uL (4.30-6.10)
[2018-07-26] MEDS: HEPARIN SOD (PORCINE) 5000 UNITS/ML VIAL SC SCH ×3 (05:29→21:36)
[2018-07-26] MEDS: SLF 3 ML SYR IV SCH ×3 (05:30→21:36)
[2018-07-26 05:44] LABS: CALCIUM LEVEL 8.8 MG/DL (8.8-10.2); CREATININE FOR GFR 1.33 MG/DL (0.70-1.30); GLOMERULAR FILTRATION RATE 56.6 (>42); MAGNESIUM LEVEL 1.7 MG/DL (1.8-2.4); POTASSIUM SERUM 3.6 MEQ/L (3.5-5.1)
[2018-07-26] MEDS: ACETAMINOPHEN TAB 650MG DOSE (2X325MG) PO PRN ×3 (06:34→16:46)
[2018-07-26] MEDS: HumaLOG INSULIN (NovoLOG) PER UNIT SC SCH ×4 (07:30→21:00)
[2018-07-26] MEDS ORDERED: MAG SULF 1GM/100ML (MAG RUN) 1 GM in APPROPRIATE DILUENT 1 EA IV ONE (08:00)
[2018-07-26] MEDS: LEVEMIR (INSULIN DETEMIR) 1 UNITS/0.01ML SC SCH ×2 (08:51→22:09)
[2018-07-26] MEDS: FUROSEMIDE 40 MG/4 ML VIAL (J1940) IV SCH ×2 (08:51→16:46)
[2018-07-26] MEDS: METOPROLOL TART 50 MG TAB PO SCH ×2 (08:52→21:00)
[2018-07-26] MEDS: ASPIRIN ENTERIC 325 MG TAB PO SCH (08:52)
[2018-07-26] MEDS: OXcarbazepine 150 MG TAB PO SCH ×2 (08:52→21:36)
[2018-07-26] MEDS: OMEPRAZOLE 20 MG CAP PO SCH (08:52)
[2018-07-26] MEDS: MOXIFLOXACIN HCL 400 MG in APPROPRIATE DILUENT 1 EA IV SCH (11:09)
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
[2018-07-26] MEDS: PRAVASTATIN 20 MG TAB PO SCH (21:36)
[2018-07-26] MEDS ORDERED: LEVEMIR (INSULIN DETEMIR) 1 UNITS/0.01ML SC ONE (22:15)
[2018-07-27] VITALS (7 sets, daily range): BP systolic 147–167; BP diastolic 66–96
[2018-07-27] MEDS: ACETAMINOPHEN TAB 650MG DOSE (2X325MG) PO PRN ×2 (00:39→21:13)
[2018-07-27] MEDS: hydrALAZINE INJ 20 MG/ML VIAL IV SCH ×4 (02:00→20:13)
[2018-07-27] MEDS: HEPARIN SOD (PORCINE) 5000 UNITS/ML VIAL SC SCH ×3 (05:36→21:13)
[2018-07-27] MEDS: SLF 3 ML SYR IV SCH ×3 (05:36→21:37)
[2018-07-27 05:52] LABS: HEMATOCRIT 29.6 % (42.0-52.0); HEMOGLOBIN 9.6 g/dl (13.5-17.5); MEAN CORPUSCULAR HEMOGLOBIN 30.2 pg (27.0-33.0); MEAN CORPUSCULAR HGB CONC 32.4 g/dl (32.0-36.5); MEAN CORPUSCULAR VOLUME 93.1 fl (80.0-96.0); PLATELET COUNT, AUTOMATED 272 10^3/uL (150-450); RED BLOOD COUNT 3.18 10^6/uL (4.30-6.10); WHITE BLOOD COUNT 8.3 10^3/uL (4.0-10.0)
[2018-07-27 06:06] LABS: BLOOD UREA NITROGEN 14 MG/DL (7-18); CALCIUM LEVEL 8.5 MG/DL (8.8-10.2); CARBON DIOXIDE LEVEL 32 MEQ/L (21-32); CHLORIDE LEVEL 103 MEQ/L (98-107); CREATININE FOR GFR 1.13 MG/DL (0.70-1.30); GLOMERULAR FILTRATION RATE > 60.0 (>42); GLUCOSE, FASTING 227 MG/DL (70-100); POTASSIUM SERUM 3.4 MEQ/L (3.5-5.1); SODIUM LEVEL 141 MEQ/L (136-145)
[2018-07-27] MEDS: HumaLOG INSULIN (NovoLOG) PER UNIT SC SCH ×4 (07:30→21:15)
[2018-07-27] MEDS: FUROSEMIDE 40 MG/4 ML VIAL (J1940) IV SCH ×2 (08:14→17:47)
[2018-07-27] MEDS: OMEPRAZOLE 20 MG CAP PO SCH (08:15)
[2018-07-27] MEDS: OXcarbazepine 150 MG TAB PO SCH ×2 (08:15→20:22)
[2018-07-27] MEDS: LEVEMIR (INSULIN DETEMIR) 1 UNITS/0.01ML SC SCH (08:15)
[2018-07-27] MEDS: ASPIRIN ENTERIC 325 MG TAB PO SCH (08:15)
[2018-07-27] MEDS: METOPROLOL TART 50 MG TAB PO SCH ×2 (08:22→20:22)
[2018-07-27] MEDS ORDERED: E-Z-PAQUE 96% w/w SUSP 176GM BTL As Ordered ONE (08:33)
[2018-07-27] MEDS ORDERED: E-Z-HD 98% w/w 340GM SUSP BTL As Ordered ONE (08:34)
[2018-07-27] MEDS ORDERED: E-Z-GAS II EFFERVESCENT PACKET (SODIUM BICARB./CITRIC ACID/SIMETHICONE) As Ordered ONE (08:34)
[2018-07-27] MEDS: MOXIFLOXACIN HCL 400 MG in APPROPRIATE DILUENT 1 EA IV SCH (11:02)
--- NOTE | 2018-07-27 11:55 | REP ---
Esophagram The procedure was performed under the direct supervision of Dr. Jett. The images were reviewed with Dr. Jett. A single view PA chest x-ray is submitted as a handtools repairer film. There are perihilar opacities left greater than right. These are somewhat improved since the previous chest x-ray performed on 07/24/2018. Liquid barium was administered in the right lateral recumbent position. During the oral and pharyngeal stages of deglutition there is aspiration with cough response. The esophagus is grossly normal. There is free flow of contrast into the stomach. There is no evidence of stricture or obstruction. Impression: 1. There is aspiration with cough response. The esophagus is grossly normal. There is no evidence of stricture or obstruction. 2. There are perihilar opacities, left greater than right. These are somewhat improved since the previous chest x-ray performed on 07/24/2018. 0.2 minutes of fluoro time was utilized for this procedure. Reviewed by SANDRA Wheatley 07/27/2018 09:35 A Electronically Signed by John Jett MD 07/27/2018 11:47 A
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
[2018-07-27] MEDS: PRAVASTATIN 20 MG TAB PO SCH (20:22)
[2018-07-27] MEDS ORDERED: LEVEMIR (INSULIN DETEMIR) 1 UNITS/0.01ML SC SCH (21:00)
[2018-07-28] MEDS: hydrALAZINE INJ 20 MG/ML VIAL IV SCH ×2 (02:02→09:21)
[2018-07-28 04:00] VITALS: BP 167/91
[2018-07-28] MEDS: SLF 3 ML SYR IV SCH ×2 (05:40→13:31)
[2018-07-28] MEDS: HEPARIN SOD (PORCINE) 5000 UNITS/ML VIAL SC SCH ×2 (05:40→13:24)
[2018-07-28 06:10] LABS: HEMATOCRIT 31.1 % (42.0-52.0); HEMOGLOBIN 10.3 g/dl (13.5-17.5); MEAN CORPUSCULAR HEMOGLOBIN 31.1 pg (27.0-33.0); MEAN CORPUSCULAR HGB CONC 33.1 g/dl (32.0-36.5); PLATELET COUNT, AUTOMATED 269 10^3/uL (150-450); RED BLOOD COUNT 3.31 10^6/uL (4.30-6.10); WHITE BLOOD COUNT 8.1 10^3/uL (4.0-10.0)
[2018-07-28 06:39] LABS: BLOOD UREA NITROGEN 12 MG/DL (7-18); CALCIUM LEVEL 8.4 MG/DL (8.8-10.2); CARBON DIOXIDE LEVEL 33 MEQ/L (21-32); CHLORIDE LEVEL 102 MEQ/L (98-107); CREATININE FOR GFR 1.06 MG/DL (0.70-1.30); GLOMERULAR FILTRATION RATE > 60.0 (>42); GLUCOSE, FASTING 176 MG/DL (70-100); POTASSIUM SERUM 3.2 MEQ/L (3.5-5.1); SODIUM LEVEL 141 MEQ/L (136-145)
[2018-07-28 08:00] VITALS: BP 168/78
[2018-07-28 08:27] LABS: MAGNESIUM LEVEL 1.7 MG/DL (1.8-2.4)
[2018-07-28] MEDS ORDERED: LEVEMIR (INSULIN DETEMIR) 1 UNITS/0.01ML SC SCH (09:00)
[2018-07-28] MEDS: METOPROLOL TART 50 MG TAB PO SCH (09:00)
[2018-07-28] MEDS: FUROSEMIDE 40 MG/4 ML VIAL (J1940) IV SCH (09:21)
[2018-07-28] MEDS: HumaLOG INSULIN (NovoLOG) PER UNIT SC SCH ×3 (09:21→16:59)
[2018-07-28] MEDS: OMEPRAZOLE 20 MG CAP PO SCH (09:22)
[2018-07-28] MEDS: POTASSIUM CHL PWD 20 MEQ PACKET PO SCH ×2 (09:22→12:00)
[2018-07-28] MEDS: ASPIRIN ENTERIC 325 MG TAB PO SCH (09:22)
[2018-07-28] MEDS: OXcarbazepine 150 MG TAB PO SCH (09:22)
[2018-07-28] MEDS: MOXIFLOXACIN HCL 400 MG in APPROPRIATE DILUENT 1 EA IV SCH (11:00)
[2018-07-28] MEDS ORDERED: **hydrALAZINE HCL** 25 MG TAB PO PRN (12:00)
[2018-07-28] MEDS ORDERED: MAGNESIUM OXIDE 400 MG TAB (MAG-OX) PO ONE (12:00)
[2018-07-28] MEDS ORDERED: LISINOPRIL 20 MG TAB PO SCH (12:00)
[2018-07-28] MEDS ORDERED: FURO40TA2 PO (13:04)
[2018-07-28] MEDS ORDERED: INSUDET SC (13:04)
[2018-07-28] MEDS ORDERED: ASPI32ECTA PO (13:04)
[2018-07-28] MEDS ORDERED: INSUHUMDS SC ×2 (13:04)
[2018-07-28] MEDS ORDERED: LISI-538 PO (13:04)
[2018-07-28] MEDS ORDERED: POTA20PW PO (13:04)
[2018-07-28] MEDS ORDERED: HYDR25TA PO (13:04)
[2018-07-28 13:31] VITALS: BP 170/90
[2018-07-28] MEDS ORDERED: POTASSIUM CHLORIDE 10 MEQ SR TABLET PO ONE (14:00)
[2018-07-28 15:58] LABS: CLOSTRIDIUM DIFFICILE PCR NEGATIVE (NEGATIVE)
[2018-07-28 16:00] VITALS: BP 162/74
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
[2018-07-28] MEDS ORDERED: FUROSEMIDE 40 MG TAB PO SCH (17:00)
[2018-07-29] MEDS ORDERED: POTASSIUM CHL PWD 20 MEQ PACKET PO SCH (09:00)
--- NOTE | 2018-07-29 14:34 | REP ---
Examination Requested: Cookie Swallow Upper GI Air Contrast The procedure was performed by SANDRA Clayton, under the direct supervision of Dr. Nina. The procedure was performed with Staci Arroyo from speech pathology present. 5 ml aliquots of thin, pudding, mixed fruit, soft food, and nectar consistency barium was administered. Penetration without aspiration is noted when the patient ingested thin and nectar consistency barium. There is a question of a filling defect on series 1 through 6. This may be positional, although a polypoid filling defect cannot be excluded. Distally there is another anterior filling defect noted on series 6 suspicious for an esophageal web. Further evaluation can be considered with an esophagram. The detailed report of this examination will be provided by speech pathology. 2.6 minutes of fluoroscopy time was utilized for this procedure. Reviewed by SANDRA Mitchell 07/22/2018 05:04 P Electronically Signed by eMrrill Nina MD 07/29/2018 02:26 P
== END 2018-07-28 18:39 | disposition home or self-care (01) | DRG 64 ==
LOC: EDBD 09:31 → M ED 09:31 → M ED INP 14:09 → M PCU 15:30
PROVIDERS: ADMIT Internal Medicine; ATTEND Internal Medicine
DX: I63.9 Cerebral infarction, unspecified (principal); I50.31 Acute diastolic (congestive) heart failure; J69.0 Pneumonitis due to inhalation of food and vomit; E87.1 Hypo-osmolality and hyponatremia; I69.351 Hemiplegia and hemiparesis following cerebral infarction affecting right dominant side; E11.65 Type 2 diabetes mellitus with hyperglycemia; K21.9 Gastro-esophageal reflux disease without esophagitis; I11.0 Hypertensive heart disease with heart failure; I25.10 Atherosclerotic heart disease of native coronary artery without angina pectoris; Z95.1 Presence of aortocoronary bypass graft; E78.5 Hyperlipidemia, unspecified; D72.829 Elevated white blood cell count, unspecified; R19.7 Diarrhea, unspecified; Z79.4 Long term (current) use of insulin; Z79.899 Other long term (current) drug therapy; Z79.82 Long term (current) use of aspirin; R55 Syncope and collapse

== ENCOUNTER 2018-07-28 15:15 | Inpatient (IN) | payer MEDICARE, MEDICAID ==
[~2018-07-28] VITALS: Ht 180.3 cm; Wt 109.7 kg
[~2018-07-28 15:15] MED LIST changes: +ASPI32ECTA PO; +FLUO40CA PO; +FURO40TA2 PO; +HYDR25TA PO; +INSUDET SC; +INSUHUMDS SC; +LISI-538 PO; +OXCA150T21 PO; +POTA20PW PO; +VALA500T5 PO
[2018-07-28] MEDS ORDERED: GLUCOSE 4 GM CHEW TABLET PO PRN (18:45)
[2018-07-28] MEDS ORDERED: GLUCAGON FOR INJ 1 MG VIAL (J1610) SC PRN (18:45)
[2018-07-28] MEDS ORDERED: NITROGLYCERIN 0.4 MG SUBL TABLET SL PRN (18:45)
[2018-07-28] MEDS ORDERED: DEXTROSE 50% 50 ML SYRINGE IV PRN (18:45)
[2018-07-28] MEDS ORDERED: ONDANSETRON 4 MG TAB (S0181) PO PRN (18:45)
[2018-07-28 18:57] VITALS: BP 160/86
[2018-07-28] MEDS: **hydrALAZINE HCL** 25 MG TAB PO PRN (19:56)
[2018-07-28] MEDS: GABAPENTIN 100 MG CAP PO SCH (19:57)
[2018-07-28] MEDS: METOPROLOL TART 50 MG TAB PO SCH (19:58)
[2018-07-28] MEDS: HumaLOG INSULIN (NovoLOG) PER UNIT SC SCH (19:58)
[2018-07-28] MEDS: PRAVASTATIN 20 MG TAB PO SCH (19:58)
[2018-07-28] MEDS: LEVEMIR (INSULIN DETEMIR) 1 UNITS/0.01ML SC SCH (19:59)
[2018-07-28 20:03] VITALS: BP 190/100
[2018-07-28 21:15] VITALS: BP 176/100
[2018-07-28] MEDS: HEPARIN SOD (PORCINE) 5000 UNITS/ML VIAL SC SCH (21:36)
[2018-07-28] MEDS: OXcarbazepine 300 MG TAB PO SCH (21:39)
[2018-07-28 22:05] LABS: APPEARANCE, URINE CLEAR (CLEAR); BACTERIA, URINE AUTO NEGATIVE (NEGATIVE); BILIRUBIN, URINE AUTO NEGATIVE (NEGATIVE); BLOOD, URINE BLOOD NEGATIVE (NEGATIVE); COLOR, URINE YELLOW (YELLOW); GLUCOSE, URINE (UA) AUTO 1+ mg/dL (NEGATIVE); KETONE, URINE AUTO NEGATIVE (NEGATIVE); LEUKOCYTE ESTERASE, URINE AUTO NEGATIVE (NEGATIVE); MUCUS, URINE SMALL (NEGATIVE); NITRITE, URINE AUTO NEGATIVE (NEGATIVE); PROTEIN, URINE AUTO 3+ mg/dL (NEGATIVE); RBC, URINE AUTO 1 /HPF (0-3); SPECIFIC GRAVITY URINE AUTO 1.015 (1.002-1.035); SQUAMOUS EPITHELIAL CELL UR AU 0 /HPF (0-6); UROBILINOGEN, URINE AUTO 0.2 mg/dL (0.0-2.0); WBC, URINE AUTO 1 /HPF (0-3)
[2018-07-28 22:30] VITALS: BP 174/90
[2018-07-28] MEDS ORDERED: LISINOPRIL 20 MG TAB PO ONE (22:30)
[2018-07-28 23:34] VITALS: BP 192/98
[2018-07-28] MEDS ORDERED: FUROSEMIDE 40 MG TAB PO ONE (23:45)
[2018-07-29] VITALS (8 sets, daily range): BP systolic 166–200; BP diastolic 79–92
[2018-07-29] MEDS: **hydrALAZINE HCL** 25 MG TAB PO PRN ×2 (01:43→09:13)
[2018-07-29] MEDS: HEPARIN SOD (PORCINE) 5000 UNITS/ML VIAL SC SCH ×3 (05:52→20:10)
[2018-07-29 06:13] LABS: BASO % 0.4 % (0.0-1.0); EOS # 0.7 10^3/uL (0.0-0.50); EOS % 8.3 % (0.0-3.0); HEMATOCRIT 30.6 % (42.0-52.0); HEMOGLOBIN 9.9 g/dl (13.5-17.5); LYMPH # 0.6 10^3/uL (1.5-4.5); LYMPH % 7.3 % (24.0-44.0); MEAN CORPUSCULAR HEMOGLOBIN 31.1 pg (27.0-33.0); MEAN CORPUSCULAR HGB CONC 32.4 g/dl (32.0-36.5); MEAN CORPUSCULAR VOLUME 96.2 fl (80.0-96.0); MONO # 0.6 10^3/uL (0.0-0.8); MONO % 7.4 % (0.0-5.0); NEUTROPHILS # 6.3 10^3/uL (1.8-7.7); NEUTROPHILS % 76.4 % (36.0-66.0); PLATELET COUNT, AUTOMATED 282 10^3/uL (150-450); RED BLOOD COUNT 3.18 10^6/uL (4.30-6.10); WHITE BLOOD COUNT 8.2 10^3/uL (4.0-10.0)
[2018-07-29 06:38] LABS: ALBUMIN 2.1 GM/DL (3.2-5.2); ALT/SGPT 17 U/L (12-78); BILIRUBIN,TOTAL 0.2 MG/DL (0.2-1.0); BLOOD UREA NITROGEN 13 MG/DL (7-18); CALCIUM LEVEL 8.3 MG/DL (8.8-10.2); CARBON DIOXIDE LEVEL 33 MEQ/L (21-32); CHLORIDE LEVEL 102 MEQ/L (98-107); CREATININE FOR GFR 1.25 MG/DL (0.70-1.30); GLOMERULAR FILTRATION RATE > 60.0 (>42); GLUCOSE, FASTING 171 MG/DL (70-100); POTASSIUM SERUM 3.7 MEQ/L (3.5-5.1); SODIUM LEVEL 141 MEQ/L (136-145); TOTAL PROTEIN 6.4 GM/DL (6.4-8.2)
[2018-07-29] MEDS: POTASSIUM CHLORIDE 10 MEQ SR TABLET PO SCH (08:10)
[2018-07-29] MEDS: GABAPENTIN 100 MG CAP PO SCH ×4 (08:10→20:07)
[2018-07-29] MEDS: OMEPRAZOLE 20 MG CAP PO SCH (08:10)
[2018-07-29] MEDS: ASPIRIN 325 MG TAB PO SCH (08:10)
[2018-07-29] MEDS: METOPROLOL TART 50 MG TAB PO SCH ×2 (08:10→20:08)
[2018-07-29] MEDS: FUROSEMIDE 40 MG TAB PO SCH ×2 (08:10→17:02)
[2018-07-29] MEDS: OXcarbazepine 150 MG TAB PO SCH (08:12)
[2018-07-29] MEDS: ACETAMINOPHEN TAB 650MG DOSE (2X325MG) PO PRN (08:13)
[2018-07-29] MEDS: LEVEMIR (INSULIN DETEMIR) 1 UNITS/0.01ML SC SCH ×2 (08:13→20:09)
[2018-07-29] MEDS: HumaLOG INSULIN (NovoLOG) PER UNIT SC SCH ×4 (08:13→20:09)
[2018-07-29] MEDS ORDERED: OMEPRAZOLE 20 MG CAP PO SCH (09:00)
[2018-07-29] MEDS ORDERED: LISINOPRIL 20 MG TAB PO SCH (09:00)
[2018-07-29] MEDS ORDERED: PREVNAR 13 VACCINE SYRINGE (CPT CODE:90670) IM ONE (09:00)
[2018-07-29] MEDS ORDERED: **hydrALAZINE HCL** 25 MG TAB PO PRN ×2 (10:45→17:00)
[2018-07-29] MEDS ORDERED: **hydrALAZINE HCL** 25 MG TAB PO ONE (11:00)
--- NOTE | 2018-07-29 12:44 | NUR ---
Recommend pureed solids, honey thick liquids, medications in puree assist, upright & OOB as tolerated for meals, endoscopy to assess structural integrity of pharyngeal and esophageal regions. Dysphagia tx for laryngeal strengthening, compensatory strategy training, sensory input, and PO trials. Addendum: 07/29/[address] [facility] Amended: Links added.
--- NOTE | 2018-07-29 12:50 | NUR ---
Pt reports mild anomia which is noted as minimal and infrequent processing time delay in conversation. Recommend f/u x1 for compensatory strategy training for word-finding in conversation. Addendum: 07/29/18 at 1251 by [facility] Amended: Links added.
--- NOTE | 2018-07-29 12:56 | NUR ---
Pt reports short term memory impairment which is minimally noted in paragraph repetition on assessment. Minimal sequencing errors w/ paragraph repetition. Otherwise, cognitive skills score wnl. Recommend f/u for compensatory strategy memory training and monitor for continued difficulties w/ STM or episodic memory. Addendum: 07/29/[address] [facility] Amended: Links added.
--- NOTE | 2018-07-29 14:58 | REP ---
Chest x-ray: Two views. History: Dyspnea. Comparison chest x-ray: July 24, 2018. Findings: The patient is status post median sternotomy and aortic valve replacement. A loop recorder is visualized projecting over the left precordial region. Mildly prominent heart is seen. Pulmonary vasculature is cephalized. There is no evidence of pleural effusion however or pulmonary edema. The pleural angles are sharp. There are increased markings left perihilar region which have improved somewhat from the July 22 and July 24 prior chest x-ray. Impression: Pulmonary vascular cephalization. Borderline heart size. Status post aortic valve replacement via median sternotomy. Somewhat improved increased markings left perihilar region. No acute infiltrate seen. Electronically Signed by John Jett MD 07/29/2018 02:50 P
--- NOTE | 2018-07-29 15:17 | IPNPDOC ---
Subjective Date Seen The patient was seen on 07/29/18. Subjective Chief Complaint/HPI Patient is a 68-year-old male, recently admitted for altered mental status and found to have right kayleen ischemic stroke. After stabilization in the medical unit. He was discharged to inpatient rehabilitation unit for mobilization and strengthening prior to discharge home. Events since last encounter On assessment today patient has no complaints, he states blood pressure is usually persistently elevated. Denies chest pain, denies shortness of breath. Patient states this is his third stroke Objective Physical Examination Other physical findings GENERAL: NAD SKIN : Warm, ischemic changes to bilateral lower legs, abrasion to right knee HEENT: Atraumatic, normocephalic, PERRL, moist mucous membrane CARDIOVASCULAR: Regular rate and rhythm, S1S2, no JVD, edema to BLE, distal pulses not palpable RESP: CTAB, no accessory muscle use noted ABDOMEN: BS+ non distended non tender MS: no joint deformities NEURO: Alert and oriented x 3, CN2-12 grossly intact PSYCH: no anxiety or agitation, appropriate mood and affect. Assessment /Plan Problems (1) CVA (cerebral vascular accident) Problem Text: -ischemic type to right Kayleen with left extremity weakness -S/P ILR placement -continue statin, aspirin, blood pressure monitoring and control -rehabilitation by primary team (2) Diastolic CHF, acute on chronic Problem Text: -fluid restriction -continue lasix -monitor electrolytes potasium and magnesium while on diuretic therapy -respiratory monitoring and support as needed (3) GERD (gastroesophageal reflux disease) Problem Text: -start on proton pump inhibitor (4) Advance care planning (5) Diabetes mellitus type 2, insulin dependent Status: Chronic Problem Text: -diabetic diet -fingerstick checks prior to meals and at bedtime -coverage with insulin per sliding scale protocol (6) Hypertension Status: Chronic Problem Text: -currently poorly controlled -has been started on multiple agents by primary team -hydralazine, lisinopril -monitoring per unit protocol -adjust medications and doses for target blood pressure systolic <140 (7) CAD (coronary artery disease) of bypass graft Status: Chronic Problem Text: -control blood pressure -continue statin therapy, aspirin, volume (8) DVT prophylaxis Problem Text: -heparin 5000 units Q8 Plan/VTE VTE Prophylaxis Ordered?: Yes VS, I&O, 24H, Fishbone Vital Signs/I&O Vital Signs Date Time Temp Pulse Resp B/P (MAP) Pulse Ox O2 Delivery O2 Flow Rate FiO2 07/29/18 14:00 97.4 61 18 175/79 (111) 93 07/29/18 05:55 3.0 I&O- Last 24 Hours up to 6 AM 07/29/18 06:00 Intake Total 60 ml Output Total 310 ml Balance -250 ml Laboratory Data 24H LABS Laboratory Tests 2 07/28/18 19:49: Bedside Glucose (Misc Panel) 196H 07/28/18 21:40: Urine Appearance CLEAR, Urine Color YELLOW, Urine pH 5.0, Urine Specific [place] 1.015, Urine Protein 3+H, Urine Glucose (UA) 1+H, Urine Ketones NEGATIVE, Urine Urobilinogen 0.2, Urine Bilirubin NEGATIVE, Urine Leukocyte Esterase NEGATIVE, Urine Blood NEGATIVE, Urine Nitrite NEGATIVE, Urine WBC (Auto) 1, Urine RBC (Auto) 1, Urine Hyaline Casts (Auto) 1, Urine Bacteria (Auto) NEGATIVE, Urine Squamous Epithelial Cells 0, Urine Mucus (Auto) SMALL, Urine Sperm (Auto) 07/29/18 05:51: Immature Granulocyte % (Auto) 0.2, White Blood Count 8.2, Red Blood Count 3.18L, Hemoglobin 9.9L, Hematocrit 30.6L, Mean Corpuscular Volume 96.2H, Mean Corpuscular Hemoglobin 31.1, Mean Corpuscular Hemoglobin Concent 32.4, Red Cell Distribution Width 14.1, Platelet Count 282, Neutrophils (%) (Auto) 76.4H, Lymphocytes (%) (Auto) 7.3L, Monocytes (%) (Auto) 7.4H, Eosinophils (%) (Auto) 8.3H, Basophils (%) (Auto) 0.4, Neutrophils # (Auto) 6.3, Lymphocytes # (Auto) 0.6L, Monocytes # (Auto) 0.6, Eosinophils # (Auto) 0.7H, Basophils # (Auto) 0.0, Nucleated Red Blood Cells % (auto) 0.0, Anion Gap 6L, Glomerular Filtration Rate > 60.0, Blood Urea Nitrogen 13, Creatinine 1.25, Sodium Level 141, Potassium Level 3.7, Chloride Level 102, Carbon Dioxide Level 33H, Calcium Level 8.3L, Aspartate Amino Transf (AST/SGOT) 13, Alanine Aminotransferase (ALT/SGPT) 17, Alkaline Phosphatase 68, Total Bilirubin 0.2, Total Protein 6.4, Albumin 2.1L, Albumin/Globulin Ratio 0.49L 07/29/18 11:48: Bedside Glucose (Misc Panel) 242H CBC/BMP Laboratory Tests 07/29/18 05:51 Red Blood Count 3.18 L, Mean Corpuscular Volume 96.2 H, Mean Corpuscular Hemoglobin 31.1, Mean Corpuscular Hemoglobin Concent 32.4, Red Cell Distribution Width 14.1, Neutrophils (%) (Auto) 76.4 H, Lymphocytes (%) (Auto) 7.3 L, Monocy flakito (%) (Auto) 7.4 H, Eosinophils (%) (Auto) 8.3 H, Basophils (%) (Auto) 0.4, Neutrophils # (Auto) 6.3, Lymphocytes # (Auto) 0.6 L, Monocytes # (Auto) 0.6, Eosinophils # (Auto) 0.7 H, Basophils # (Auto) 0.0, Calcium Level 8.3 L, Aspartate Amino Transf (AST/SGOT) 13, Alanine Aminotransferase (ALT/SGPT) 17, Alkaline Phosphatase 68, Total Bilirubin 0.2, Total Protein 6.4, Albumin 2.1 L Microbiology Microbiology 07/28/18 Urine Culture, Received Pending DAMIEN LICEA [employer]ING OFFIC[employer] July 29, 2018 15:17
--- NOTE | 2018-07-29 16:54 | HPEPDOC ---
[place] Inspector Note DATE OF ADMISSION: July 28, 2018 at 18:42 SOURCE OF ADMISSION INFORMATION: patient and [facility] records CHIEF COMPLAINT: stroke with dysphagia HISTORY OF PRESENT ILLNESS: 68M pmh CAD s/p CABG in 2016, HTN, CVA in 2015 with residual dysphagia and right sided weakness ,HLD, DM2 with peripheral neuropathy, prostate cancer s/p radiation, aortic valve replacement not on anticoagulation who had a pre- syncopal event in his car and presented to [facility] ED reporting palpitations. He reports having been on acyclovir for 4 weeks for facial zoster and 4 weeks of di arrhea without fevers or chills. He was found to have leukocytosis, with CXR revealing Left lower lobe atelectasis or infiltrate so he was started on IV antibiotics. CTH was negative for intracranial bleed, but MRI performed on 07/20/18 showed, Small late acute right pontine infarction Old left basal ganglia, thalamic, cerebellar and pontine lacunar infarctions. Carotid US was performed showing, Occlusion mid right internal carotid artery. No hemodynamically significant stenosis left internal carotid artery. CTA head showed severe stenosis of the right anterior cerebral artery. He had repeat head imaging showing no new strokes or significant evolution of his initial stroke. Repeat CXRs showed persistent infiltrates, so he underwent an esophogram out of concern for aspiration pneumonia and aspiration with cough response was seen during both the oral and pharyngeal stages without signs of esophageal strictures. Neurology was consulted who agreed with aspirin dosing and performed an EEG on 07/22/18 which showed no seizure activity. He had a nocturnal pulse- oximetry test performed showing desaturations less than 88% for 13 minutes and 20 seconds and he was placed on nocturnal oxygen with recommendations for outpatient sleep study. He was evaluated by therapy and found to have impairments in gait and ADLs below baseline function and deemed medically appropriate for discharge to ARU on 07/28/18. Upon arrival he reports feeling mildly short of breath and has persistent diarrhea. REVIEW OF SYSTEMS: The following is a completed review of systems and has been reviewed. Review of systems otherwise unremarkable. PAIN: Patient self reports no pain EYES: Negative for visual changes EARS, NOSE, & THROAT:+dysphagia CARDIOVASCULAR: denies chest pain or palpitations PULMONARY: Negative. Denies shortness of breath GASTROINTESTINAL: +diarrhea GENITOURINARY: Negative for dysuria or incontinence MUSCULOSKELETAL: LUE weakness NEUROLOGICAL: LUE weakness, peripheral neuropathy HEMATOLOGICAL: Negative SKIN: bilateral anterior guerin ulcers PSYCHIATRIC: Unremarkable All other review of systems found to be negative. PAST MEDICAL HISTORY: as per HPI PAST SURGICAL HISTORY: as per HPI ALLERGIES: Please see below. MEDICATIONS: Please see below. 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 GENERAL: Pleasant and cooperative. No acute distress. HEENT: PERRL. Extraocular movements intact. Clear conjunctiva CARDIOVASCULAR: Regular rate and rhythm. No murmurs, rubs, or gallops LUNGS: Clear to auscultation bilaterally. No wheezes. No rhonchi ABDOMEN: Soft, nontender, nondistended. Positive bowel sounds. Normal active bowel sounds. NEUROLOGICAL: Alert and oriented times three. Cranial nerves II through XII grossly intact. Sensation to light touch diminished in stocking pattern in LE, intact in UE EXTREMITIES: 5\5 strength bilateral upper extremities, mild pronator drift on the left. 5\5 strength right lower extremity. 5/5 strength in left lower extremity. bilateral edema (-) Homans bilat SKIN: hyperpigmentation of caves with scattered dry ulcers bilat anterior shins and dorsum of D2 on the left IMAGING: Imaging documentation personally reviewed by record FUNCTIONAL STATUS: Premorbid: Mod Independent with all activities of daily life as well as mobility. On Admission: Contact guard with all mobility, transfers however limited by dizziness, stand-by assist for toileting, max assist for lower body dressing. GOALS: Mod-I with RW for ambulation, stairs, varied terrain, dynamic balance, functional transfers, toielting, bathing, dressing, medical optimization, assess for DMEs, caregiver training. ASSESSMENT: 68-year-old M with past medical history of CAD s/p CABG, diastolic CHF, stroke who presents status post right pontine stroke complicated by dysphagia and pneumonia. PLAN: 1. Rehab: OT, OT, RECYCLING ASSISTANT- c/u honey thickened and puree, may repeat MBS prn, mod- severe dysphagia 2. Neuro: pmh 2 strokes in 2015 and recent right pontine stroke- c/u ASA 325mg daily and statin therapy- f/u outpatient neurology 3. cardiac: pmh CAD s/p CABG, Aortic valve replacement, poorly controlled HTN and recent ECHO 07/24/18 showing grade 2 diastolic dysfunction- c/u diuretics and BP meds, adjsut prn- medicien cosnutled to assist is management -fluid restrict to 1800cc -c/u nocturnal 02 3. Resp: s/p recent aspiration pneumonia and currently off antibiotics, will monitor and obtain repeat CXR- encourage incentive spirometry and will add breathing treatments and guaifenesin -CHlorohexidine mouth wash to protect against aspiration PNA 4. Endo: pmh dm with severe peripheral neuropathy- c/i ISS and adjust prn, will recommend with diabetic shoes 5. GI ppx: prilosec, immodium prn for loose stools- will order c diff assay as well -concern for possible esophageal dysmotility despite normal read of recent esophagram, will consult GI for possible upper endoscopy 6. DVT ppx: TEDs and heparin 7. SKin: acewrap bilat LE for edema 8. Dispo: TBD POST ADMISSION PHYSICIAN EVALUATION: Medical and functional status: Description of medical status, medical assessment: As above. Rehabilitation diagnosis and current and prior cold morbid medical conditions as above. Risk of complications and plans to mitigate them as above. Description of functional status current status is as above. Prior status as above. Status compared to preadmission: There are no clinically significant differences between the patient's current status and the information described on the preadmission screening document. Treatment plan anticipated: Treatment plan is as described above. Required disciplines including physical therapy, occupational therapy, others as noted above Intensity of services: 3 hours a day, 6 days a week. Special considerations: There are no specific special or safety considerations that would likely preclude immediate implementation of an intensive rehabilitation program or subsequently influence the plan of care ATTESTATION: Considering all the information above, it is my best judgment that this patient requires intensive rehabilitation therapy as described above and an inpatient hospital environment due to the complexity of nursing, medical, and rehabilitation needs required by the patient. Furthermore, this patient can reasonably be expected to participate in an benefit from an inpatient re habilitation stay with an interdisciplinary team approach to the delivery of rehabilitation care under the direction and supervision of rehabilitation physician PROGNOSIS: Excellent ESTIMATED LENGTH OF STAY:10-12 days. PROJECTED DISCHARGE DESTINATION: Home with family support and any durable medi evelia equipment required to increase functional safety and mobility TIME SPENT COUNSELING AND COORDINATING INITIAL CARE: Greater than 70 minutes. Vital Signs Vital Sign - Last 24 Hours 07/28/18 07/28/18 07/28/18 07/28/18 18:57 19:56 19:58 20:00 Temp 97.1 97.8 Pulse 72 80 80 Resp 18 18 B/P (MAP) 160/86 (110) 190/100 190/100 Pulse Ox 92 93 07/28/18 07/28/18 07/28/18 07/28/18 20:03 21:15 22:30 22:33 Pulse 80 B/P (MAP) 190/100 (130) 176/100 (125) 174/90 (118) 174/90 07/28/18 07/28/18 07/29/18 07/29/18 23:24 23:34 01:15 01:43 Pulse 66 Resp 18 B/P (MAP) 192/98 (129) 186/90 (122) 186/90 Pulse Ox 97 97 O2 Flow Rate 3.0 3.0 07/29/18 07/29/18 07/29/18 07/29/18 03:15 05:55 08:10 08:10 Temp 97.4 Pulse 69 69 Resp 18 B/P (MAP) 182/90 (120) 184/92 (122) 184/92 184/92 Pulse Ox 96 O2 Flow Rate 3.0 07/29/18 07/29/18 07/29/18 07/29/18 09:10 09:13 10:35 11:01 B/P (MAP) 200/91 (127) 200/91 180/90 (120) 180/90 Pulse Ox 100 07/29/18 14:00 Temp 97.4 Pulse 61 Resp 18 B/P (MAP) 175/79 (111) Pulse Ox 93 Laboratory Data CBC/BMP Laboratory Tests 07/29/18 05:51 Red Blood Count 3.18 L, Mean Corpuscular Volume 96.2 H, Mean Corpuscular Hemoglobin 31.1, Mean Corpuscular Hemoglobin Concent 32.4, Red Cell Distribution Width 14.1, Neutrophils (%) (Auto) 76.4 H, Lymphocytes (%) (Auto) 7.3 L, Monocytes (%) (Auto) 7.4 H, Eosinophils (%) (Auto) 8.3 H, Basophils (%) (Auto) 0.4, Neutrophils # (Auto) 6.3, Lymphocytes # (Auto) 0.6 L, Monocytes # (Auto) 0.6, Eosinophils # (Auto) 0.7 H, Basophils # (Auto) 0.0, Calcium Level 8.3 L, Aspartate Amino Transf (AST/SGOT) 13, Alanine Aminotransferase (ALT/SGPT) 17, Alkaline Phosphatase 68, Total Bilirubin 0.2, Total Protein 6.4, Albumin 2.1 L Labs 24H Laboratory Tests 2 07/28/18 19:49: Bedside Glucose (Misc Panel) 196H 07/28/18 21:40: Urine Appearance CLEAR, Urine Color YELLOW, Urine pH 5.0, Urine Specific [place] 1.015, Urine Protein 3+H, Urine Glucose (UA) 1+H, Urine Ketones NEGATIVE, Urine Urobilinogen 0.2, Urine Bilirubin NEGATIVE, Urine Leukocyte Esterase NEGATIVE, Urine Blood NEGATIVE, Urine Nitrite NEGATIVE, Urine WBC (Auto) 1, Urine RBC (Auto) 1, Urine Hyaline Casts (Auto) 1, Urine Bacteria (Auto) NEGATIVE, Urine Squamous Epithelial Cells 0, Urine Mucus (Auto) SMALL, Urine Sperm (Auto) 07/29/18 05:51: Immature Granulocyte % (Auto) 0.2, White Blood Count 8.2, Red Blood Count 3.18L, Hemoglobin 9.9L, Hematocrit 30.6L, Mean Corpuscular Volume 96.2H, Mean Corpuscular Hemoglobin 31.1, Mean Corpuscular Hemoglobin Concent 32.4, Red Cell Distribution Width 14.1, Platelet Count 282, Neutrophils (%) (Auto) 76.4H, Lymphocytes (%) (Auto) 7.3L, Monocytes (%) (Auto) 7.4H, Eosinophils (%) (Auto) 8.3H, Basophils (%) (Auto) 0.4, Neutrophils # (Auto) 6.3, Lymphocytes # (Auto) 0.6L, Monocytes # (Auto) 0.6, Eosinophils # (Auto) 0.7H, Basophils # (Auto) 0.0, Nucleated Red Blood Cells % (auto) 0.0, Anion Gap 6L, Glomerular Filtration Rate > 60.0, Blood Urea Nitrogen 13, Creatinine 1.25, Sodium Level 141, Potassium Level 3.7, Chloride Level 102, Carbon Dioxide Level 33H, Calcium Level 8.3L, Aspartate Amino Transf (AST/SGOT) 13, Alanine Aminotransferase (ALT/SGPT) 17, Alkaline Phosphatase 68, Total Bilirubin 0.2, Total Protein 6.4, Albumin 2.1L, Albumin/Globulin Ratio 0.49L 07/29/18 11:48: Bedside Glucose (Misc Panel) 242H FSBS Laboratory Tests Test 07/28/18 19:49 07/29/18 11:48 Range/Units Bedside Glucose (Misc Panel) 196 242 83-110 MG/DL Microbiology Microbiology 07/28/18 Urine Culture, Received Pending Home Medications Scheduled Aspirin (Aspirin EC) 325 Mg Tablet.dr, 325 MG PO DAILY Cholecalciferol (Vitamin D3) (Vitamin D3) 5,000 Unit Capsule, 5,000 UNIT PO QHS, (Reported) Clonidine HCl (Clonidine HCl) 0.1 Mg Tab, 0.1 MG PO QHS, (Reported) HOLD FOR SB<110 Fluoxetine Hcl (Fluoxetine HCl) 40 Mg Capsule, 40 MG PO DAILY, (Reported) Furosemide (Furosemide) 40 Mg Tablet, 40 MG PO BID@09,17 Insulin Detemir (Levemir) 100 Unit/1 Ml Vial, 18 UNITS SC BID Insulin Human Lispro (Humalog) 100 Unit/1 Ml Vial, 0 UNITS SC AC Insulin Human Lispro (Humalog) 100 Unit/1 Ml Vial, 0 UNITS SC QHS Lisinopril (Lisinopril) 20 Mg Tablet, 20 MG PO DAILY Metoprolol Tartrate (Metoprolol Tartrate) 50 Mg Tab, 50 MG PO BID, (Reported) Omeprazole (Omeprazole) 20 Mg Tab, 20 MG PO DAILY, (Reported) Oxcarbazepine (Oxcarbazepine) 150 Mg Tablet, 150 MG PO QAM, (Reported) TO START ON 07/20 WITH NEW DIRECTIONS OF 150MG QAM, AND 300MG QHS Oxcarbazepine (Oxcarbazepine) 150 Mg Tablet, 300 MG PO QHS, (Reported) TO START ON 07/20 WITH NEW DIRECTIONS OF 150MG QAM, AND 300MG QHS Potassium Chloride (Potassium Chloride) 20 Meq Packet, 20 MEQ PO DAILY Pravastatin Sodium (Pravastatin Sodium) 40 Mg Tablet, 40 MG PO QHS, (Reported) Scheduled PRN Acetaminophen (Acetaminophen) 325 Mg Tab, 650 MG PO Q4H PRN for PAIN / FEVER, (Reported) Gabapentin (Gabapentin) 100 Mg Capsule, 200 MG PO QID PRN for SHINGLES PAIN, (Reported) Hydralazine HCl (Hydralazine HCl) 25 Mg Tablet, 25 MG PO Q6H PRN for hypertension if SBP >180 or DBP >100 Nitroglycerin (Nitrostat) 0.4 Mg Subl, 0.4 MG SL NITRO PRN for CHEST PAIN, (Reported) Allergies Coded Allergies: No Known Allergies (Unverified , 07/19/18) A-FIB/CHADSVASC A-FIB History Current/History of A-Fib/PAF?: No KOFI REDMOND MD July 29, 2018 16:54
[2018-07-29] MEDS: CHLORHEXIDINE GLUCONATE 0.12 % 15ML UDC (PERIDEX ORAL RINSE) SSP SCH ×2 (17:02→20:07)
[2018-07-29] MEDS: LISINOPRIL 20 MG TAB PO SCH (20:07)
[2018-07-29] MEDS: guaiFENesin 200 MG TAB PO SCH (20:08)
[2018-07-29] MEDS: OXcarbazepine 300 MG TAB PO SCH (20:08)
[2018-07-29] MEDS: cloNIDine 0.1 MG TAB PO SCH (20:08)
[2018-07-29] MEDS: PRAVASTATIN 20 MG TAB PO SCH (20:08)
[2018-07-29] MEDS: IPRATROPIUM 0.5MG/ALBUTEROL 2.5MG INH SOL UD 3ML (DUONEB)(J7620) NEB SCH (20:17)
[2018-07-29] MEDS ORDERED: PANTOPRAZOLE 40MG TAB (PROTONIX) PO SCH (21:00)
--- NOTE | 2018-07-29 22:47 | CR ---
DATE OF CONSULTATION: 07/29/2018 This is a 68-year-old white male who is being seen by GI for evaluation of apparent dysphagia. The patient has multiple medical problems including coronary artery disease, status post coronary artery bypass graft (CABG) in 2015, hypertension, previous history of CVA in 2014. The patient is (dictation ended)
[2018-07-30] VITALS (8 sets, daily range): BP systolic 143–204; BP diastolic 63–95
[2018-07-30] MEDS: HEPARIN SOD (PORCINE) 5000 UNITS/ML VIAL SC SCH ×3 (06:00→21:42)
[2018-07-30 06:36] LABS: HEMATOCRIT 29.3 % (42.0-52.0); HEMOGLOBIN 9.4 g/dl (13.5-17.5); MEAN CORPUSCULAR HEMOGLOBIN 29.9 pg (27.0-33.0); MEAN CORPUSCULAR HGB CONC 32.1 g/dl (32.0-36.5); MEAN CORPUSCULAR VOLUME 93.3 fl (80.0-96.0); PLATELET COUNT, AUTOMATED 264 10^3/uL (150-450); RED BLOOD COUNT 3.14 10^6/uL (4.30-6.10); WHITE BLOOD COUNT 9.7 10^3/uL (4.0-10.0)
[2018-07-30 07:03] LABS: ALBUMIN 2.2 GM/DL (3.2-5.2); ALT/SGPT 15 U/L (12-78); BILIRUBIN,TOTAL 0.2 MG/DL (0.2-1.0); BLOOD UREA NITROGEN 13 MG/DL (7-18); CALCIUM LEVEL 8.8 MG/DL (8.8-10.2); CARBON DIOXIDE LEVEL 33 MEQ/L (21-32); CHLORIDE LEVEL 102 MEQ/L (98-107); CREATININE FOR GFR 1.34 MG/DL (0.70-1.30); GLOMERULAR FILTRATION RATE 56.1 (>42); GLUCOSE, FASTING 195 MG/DL (70-100); MAGNESIUM LEVEL 1.9 MG/DL (1.8-2.4); POTASSIUM SERUM 3.9 MEQ/L (3.5-5.1); SODIUM LEVEL 140 MEQ/L (136-145)
[2018-07-30] MEDS: HumaLOG INSULIN (NovoLOG) PER UNIT SC SCH ×4 (07:30→21:00)
[2018-07-30] MEDS: IPRATROPIUM 0.5MG/ALBUTEROL 2.5MG INH SOL UD 3ML (DUONEB)(J7620) NEB SCH ×3 (07:43→20:02)
[2018-07-30] MEDS: MECLIZINE 12.5 MG TAB PO SCH ×3 (09:00→21:44)
--- NOTE | 2018-07-30 09:00 | CR ---
DATE OF CONSULTATION: 07/29/2018 This is a 68-year-old white male who has been yet to be seen by GI for evaluation of dysphagia. The patient has a complicated medical history including a history of coronary artery disease status post coronary artery bypass graft (CABG) in 2015, hypertension, CVA in 2015, and has had some residual dysphagia and right-sided weakness. The patient has known diabetes mellitus with peripheral neuropathy. Status post prostate cancer radiation, aortic valve replacement not on anticoagulation. The patient apparently has had presyncopal events in his car. The patient had a carotid ultrasound, which suggested a mid right internal carotid occlusion. The patient had electroencephalograms (EEGs) but do not show any evidence of any seizures. The patient relates that he is able swallow solids but has trouble with liquids. Review of systems is noncontributory. Past medical history as above. FAMILY HISTORY: Father had prostate cancer. Mother had colon cancer. SOCIAL HISTORY: Cigarettes, alcohol, drugs negative. Physical examination was deferred. The patient apparently has had an imaging study, which suggested some issues with irregularity in the cervical esophagus. Concern by rehabilitation is to have upper endoscopy to rule out any lesions. 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 The plan will be to try attempt to set the patient up for an upper endoscopy in [facility] in for further evaluation. MARY
--- NOTE | 2018-07-30 09:11 | IPNPDOC ---
Subjective Date Seen The patient was seen on 07/30/18. Subjective Chief Complaint/HPI Patient is a 68-year-old male, recently admitted for altered mental status and found to have right kayleen ischemic stroke. After stabilization in the medical unit. He was discharged to inpatient rehabilitation unit for mobilization and strengthening prior to discharge home. Events since last encounter Complains of being unable to say words he wants to . Feels very weak and called by staff to reassess patient due to new change. Denies chest pain Objective Physical Examination General Exam: Positive: Alert, Cooperative, No Acute Distress Eye Exam: Positive: PERRLA, Conjunctiva & lids normal, EOMI ENT Exam: Positive: Atraumatic, Mucous membr. moist/pink, Pharynx Normal Neck Exam: Positive: Supple; Negative: JVD, thyromegaly Chest Exam: Positive: Clear to auscultation, Normal air movement Heart Exam: Positive: Rate Normal Abdomen Exam: Positive: Normal bowel sounds, Soft; Negative: Tenderness Extremity Exam: Positive: Edema (2+ to BLE with venous stasis changes) Skin Exam: Positive: Other skin issue (venous stasis changes) Neuro Exam: Positive: Normal Tone; Negative: Normal Speech (slow speech), Strength at 5/5 X4 ext (right upper extremity weakness) Psych Exam: Positive: Mental status NL Assessment /Plan Problems (1) CVA (cerebral vascular accident) Problem Text: -ischemic type to right Kayleen with left extremity weakness -S/P ILR placement -CT brain without contrast for new neuro changes this am -follow findings -continue blood pressure control (2) Diastolic CHF, acute on chronic Problem Text: -continue fluid restriction, lasix -monitor electrolytes potasium and magnesium while on diuretic therapy -respiratory monitoring and support as needed (3) GERD (gastroesophageal reflux disease) Problem Text: -evaluation for dysphagia this am planned -continue PPI (4) Diabetes mellitus type 2, insulin dependent Status: Chronic Problem Text: -diabetic diet -fingerstick checks prior to meals and at bedtime -coverage with insulin per sliding scale protocol (5) Hypertension Status: Chronic Problem Text: -still poorly controlled -continue on hydralazine, lisinopril -monitoring per unit protocol -adjust medications and doses for target blood pressure systolic <140 (6) CAD (coronary artery disease) of bypass graft Status: Chronic Problem Text: -control blood pressure -continue statin therapy, aspirin -treatment of underlying heart failure (7) DVT prophylaxis Problem Text: -heparin 5000 units Q8 (8) Advance care planning Problem Text: -code status is DNR -disposistion to home when rehab completed Plan/VTE VTE Prophylaxis Ordered?: Yes VS, I&O, 24H, Fishbone Vital Signs/I&O Vital Signs Date Time Temp Pulse Resp B/P (MAP) Pulse Ox O2 Delivery O2 Flow Rate FiO2 07/30/18 06:05 98.7 66 16 178/80 (112) 94 2.0 I&O- Last 24 Hours up to 6 AM 07/30/18 06:00 Intake Total 720 ml Output Total 100 ml Balance 620 ml Laboratory Data 24H LABS Laboratory Tests 2 07/29/18 11:48: Bedside Glucose (Misc Panel) 242H 07/29/18 16:44: Bedside Glucose (Misc Panel) 333H 07/29/18 19:45: Bedside Glucose (Misc Panel) 308H 07/30/18 06:09: Nucleated Red Blood Cells % (auto) 0.0, Anion Gap 5L, Glomerular Filtration Rate 56.1, Blood Urea Nitrogen 13, Creatinine 1.34H, Sodium Level 140, Potassium Level 3.9, Chloride Level 102, Carbon Dioxide Level 33H, Calcium Level 8.8, Aspartate Amino Transf (AST/SGOT) < 3L, Alanine Aminotransferase (ALT/SGPT) 15, Alkaline Phosphatase 70, Total Bilirubin 0.2, Total Protein 6.0L, Albumin 2.2L, Magnesium Level 1.9, Albumin/Globulin Ratio 0.58L 07/30/18 08:35: Bedside Glucose (Misc Panel) 191H CBC/BMP Laboratory Tests 07/30/18 06:09 Red Blood Count 3.14 L, Mean Corpuscular Volume 93.3, Mean Corpuscular Hemoglobin 29.9, Mean Corpuscular Hemoglobin Concent 32.1, Red Cell Distribution Width 14.0, Calcium Level 8.8, Aspartate Amino Transf (AST/SGOT) < 3 L, Alanine Aminotransferase (ALT/SGPT) 15, Alkaline Phosphatase 70, Total Bilirubin 0.2, Total Protein 6.0 L, Albumin 2.2 L Microbiology Microbiology 07/28/18 Urine Culture, Received Pending DAMIEN LICEA July 30, 2018 09:11
[2018-07-30] MEDS: GABAPENTIN 100 MG CAP PO SCH ×4 (09:16→21:43)
[2018-07-30] MEDS: guaiFENesin 200 MG TAB PO SCH ×2 (09:16→21:44)
[2018-07-30] MEDS: OXcarbazepine 150 MG TAB PO SCH (09:17)
[2018-07-30] MEDS: METOPROLOL TART 50 MG TAB PO SCH ×2 (09:17→21:00)
[2018-07-30] MEDS: POTASSIUM CHLORIDE 10 MEQ SR TABLET PO SCH (09:17)
[2018-07-30] MEDS: FUROSEMIDE 40 MG TAB PO SCH ×2 (09:17→17:18)
[2018-07-30] MEDS: LEVEMIR (INSULIN DETEMIR) 1 UNITS/0.01ML SC SCH ×2 (09:18→21:42)
[2018-07-30] MEDS: CHLORHEXIDINE GLUCONATE 0.12 % 15ML UDC (PERIDEX ORAL RINSE) SSP SCH ×3 (09:18→21:44)
[2018-07-30] MEDS: OMEPRAZOLE 20 MG CAP PO SCH (09:19)
[2018-07-30] MEDS: LISINOPRIL 20 MG TAB PO SCH ×2 (09:19→21:44)
[2018-07-30] MEDS: ASPIRIN 325 MG TAB PO SCH (09:19)
--- NOTE | 2018-07-30 10:00 | REP ---
CT Head without contrast HISTORY: Neurologic change COMPARISON: 07/24/2018 Areas of decreased attenuation are present in the periventricular and subcortical white matter. This represents small-vessel ischemic the space. There is no intraparenchymal hemorrhage, acute infarct, mass or midline shift. The ventricular system and cortical sulci are dilated consistent with moderate volume loss. There is no extra cerebral collection. There is no fracture. The visualized sinuses are clear. IMPRESSION: 1. Small vessel ischemic disease. 2. Moderate volume loss. Electronically Signed by John Ruiz MD 07/30/2018 09:51 A
[2018-07-30] MEDS ORDERED: LABETALOL HCL 100 MG/20 ML VIAL IV ONE (11:45)
[2018-07-30] MEDS ORDERED: cloNIDine 0.1 MG TAB PO ONE ×2 (11:45→14:30)
--- NOTE | 2018-07-30 12:24 | IPNPDOC ---
PM&R Progress Note DATE OF SERVICE: July 30, 2018 [employer] Progress Note Subjective: Patient was NPO overnight, however this morning woke up feeling disoriented and confused with increased dizziness. He did not have focal weakness one xam, no facial droop, and was able to spell world backwards, however did have nystagmus. Stat CT was ordered which was negative for acute bleed. Patient's sBP was 190 for which he received 1x dose of hydralazine 50mg, 30 minutes later sBP 205, so given 0.1 mg clonidine and sent to MR to rule out stroke. Patient alert and oriented throughout this period denying chest pain. Upper Endoscopy held today. Medical hold from therapy. REVIEW OF SYSTEMS: The following is a completed review of systems and has been reviewed. Review of systems otherwise unremarkable. PAIN: Patient self reports no pain EYES: Negative for visual changes EARS, NOSE, & THROAT:+dysphagia CARDIOVASCULAR: denies chest pain or palpitations PULMONARY: Negative. Denies shortness of breath GASTROINTESTINAL: +diarrhea GENITOURINARY: Negative for dysuria or incontinence MUSCULOSKELETAL: LUE weakness NEUROLOGICAL: LUE weakness, peripheral neuropathy HEMATOLOGICAL: Negative SKIN: bilateral anterior guerin ulcers PSYCHIATRIC: Unremarkable All other review of systems found to be negative. PHYSICAL EXAMINATION: VITAL SIGNS: Please see below. GENERAL: Pleasant and cooperative. No acute distress. HEENT: PERRL. Extraocular movements intact. Clear conjunctiva CARDIOVASCULAR: Regular rate and rhythm. No murmurs, rubs, or gallops LUNGS: Clear to auscultation bilaterally. No wheezes. No rhonchi ABDOMEN: Soft, nontender, nondistended. Positive bowel sounds. Normal active bowel sounds. NEUROLOGICAL: Alert and oriented times three. Cranial nerves II through XII grossly intact. Sensation to light touch diminished in stocking pattern in LE, intact in UE EXTREMITIES: 5\5 strength bilateral upper extremities, mild pronator drift on the left. 5\5 strength right lower extremity. 5/5 strength in left lower extremity. bilateral edema (-) Homans bilat SKIN: hyperpigmentation of caves with scattered dry ulcers bilat anterior shins and dorsum of D2 on the left ASSESSMENT: 68-year-old M with past medical history of CAD s/p CABG, diastolic CHF, stroke who presents status post right pontine stroke complicated by dysphagia and pneumonia. PLAN: 1. Rehab: OT, OT, [employer]- c/u honey thickened and puree, may repeat MBS prn, mod- severe dysphagia 2. Neuro: pmh 2 strokes in 2015 and recent right pontine stroke- c/u ASA 325mg daily and statin therapy- f/u outpatient neurology -episode of AMS with increased dizziness today, CT negative for new stroke, repeat MRI pending 3. cardiac: pmh CAD s/p CABG, Aortic valve replacement, poorly controlled HTN and recent ECHO 07/24/18 showing grade 2 diastolic dysfunction- c/u diuretics and BP meds, adjsut prn- medicine consulted to assist is management -uncontrolled BPs today with mental status change, c/u clonidine and hydralazine until sBP 150-160s, then will defer to medicine for better BP management (recs appreciated) patient with HRs int he low 60s precluding liberal use of beta- blockers -fluid restrict to 1800cc -c/u nocturnal 02 3. Resp: s/p recent aspiration pneumonia and currently off antibiotics, will monitor and obtain repeat CXR- encourage incentive spirometry and will add oralia thing treatments and guaifenesin -CHlorohexidine mouth wash to protect against aspiration PNA 4. Endo: pmh dm with severe peripheral neuropathy- c/i ISS and adjust prn, will recommend with diabetic shoes 5. GI ppx: prilosec, immodium prn for loose stools- c diff ordered -concern for possible esophageal dysmotility despite normal read of recent esophagram, GI consulted, was planeed for scope today, however postponed due to elevated BPs and AMS, recs greatly appreciated 6. DVT ppx: TEDs and heparin 7. SKin: acewrap bilat LE for edema 8. Dispo: TBD Allergies Coded Allergies: No Known Allergies (Unverified , 07/19/18) Vital Signs Vital Signs Date Time Temp Pulse Resp B/P (MAP) Pulse Ox O2 Delivery O2 Flow Rate FiO2 07/30/18 11:47 204/95 07/30/18 09:17 66 07/30/18 09:00 2.0 07/30/18 06:05 98.7 16 94 Laboratory Data CBC/BMP Laboratory Tests 07/30/18 06:09 Red Blood Count 3.14 L, Mean Corpuscular Volume 93.3, Mean Corpuscular Hemoglobin 29.9, Mean Corpuscular Hemoglobin Concent 32.1, Red Cell Distribution Width 14.0, Calcium Level 8.8, Aspartate Amino Transf (AST/SGOT) < 3 L, Alanine Aminotransferase (ALT/SGPT) 15, Alkaline Phosphatase 70, Total Bilirubin 0.2, Total Protein 6.0 L, Albumin 2.2 L Labs 24H Laboratory Tests 2 07/29/18 16:44: Bedside Glucose (Misc Panel) 333H 07/29/18 19:45: Bedside Glucose (Misc Panel) 308H 07/30/18 06:09: Nucleated Red Blood Cells % (auto) 0.0, Anion Gap 5L, Glomerular Filtration Rate 56.1, Blood Urea Nitrogen 13, Creatinine 1.34H, Sodium Level 140, Potassium Level 3.9, Chloride Level 102, Carbon Dioxide Level 33H, Calcium Level 8.8, Aspartate Amino Transf (AST/SGOT) < 3L, Alanine Aminotransferase (ALT/SGPT) 15, Alkaline Phosphatase 70, Total Bilirubin 0.2, Total Protein 6.0L, Albumin 2.2L, Magnesium Level 1.9, Albumin/Globulin Ratio 0.58L 07/30/18 08:35: Bedside Glucose (Misc Panel) 191H 07/30/18 11:56: Bedside Glucose (Misc Panel) 200H Microbiology Microbiology 07/28/18 Urine Culture, Received Pending Current Medications Current Medications Current Medications Acetaminophen (Tylenol Tab) 650 mg Q4HP PRN PO MILD PAIN (PS 1-4) Last administered on 07/29/18at 08:13; Start 07/28/18 at 18:45 Albuterol/ Ipratropium (Duoneb (Ipr 0.5mg/Alb 2.5mg)) 3 ml RTID NEB Last administered on 07/30/18at 07:43; Start 07/29/18 at 20:00 Aspirin (Aspirin) 325 mg DAILY PO Last administered on 07/30/18 09:19; Start 07/29/18 at 09:00 Carvedilol (COReg) 6.25 mg BID PO ; Start 07/30/18 at 12:00 Chlorhexidine Gluconate (Peridex Oral Rinse) 15 ml TID SSP Last administered on 07/30/18at 09:18; Start 07/29/18 at 16:00 Clonidine HCl (Catapres) 0.1 mg QHS PO Last administered on 07/29/18at 20:08; Start 07/29/18 at 21:00 Dextrose (Dextrose 50%) 25 ml ASDIRECTED PRN IV SEE LABEL COMMENTS; Start 07/28/18 at 18:45 Furosemide (Lasix) 40 mg BID@09,17 PO Last administered on 07/30/18at 09:17; Start 07/29/18 at 09:00 Gabapentin (Neurontin) 100 mg QID PO Last administered on 07/30/18at 09:16; Start 07/28/18 at 21:00 Glucagon (Glucagon) 1 mg ASDIRECTED PRN SC SEE LABEL COMMENTS; Start 07/28/18 at 18:45 Glucose (Glucose) 16 GM ASDIRECTED PRN PO SEE LABEL COMMENTS; Start 07/28/18 at 18:45 Guaifenesin (Robitussin Tab) 400 mg BID PO Last administered on 07/30/18at 09:16; Start 07/29/18 at 21:00 Heparin Sodium (Porcine) (Heparin) 5,000 units Q8H SC Last administered on at 20:10; Start 07/28/18 at 22:00 Hydralazine HCl (Apresoline) 25 mg Q6HP PRN PO prn for >140 sBP Last administered on 07/29/18at 09:13; Start 07/28/18 at 18:45; Stop 07/29/18 at 10:44; Status DC Hydralazine HCl (Apresoline) 50 mg Q6HP PRN PO prn for >140 sBP; Start 07/29/18 at 10:45; Stop 07/29/18 at 10:51; Status DC Hydralazine HCl (Apresoline) 50 mg Q6HP PRN PO prn for >140 sBP Last ad ministered on 07/30/18at 10:57; Start 07/29/18 at 17:00; Stop 07/30/18 at 10:59; Status DC Hydralazine HCl (Apresoline) 50 mg TID PO ; Start 07/30/18 at 16:00 Insulin Detemir (Levemir Insulin) 18 units BID SC Last administered on 07/30/18at 09:18; Start 07/28/18 at 21:00 Insulin Human Lispro (HumaLOG INSULIN) SEE PROTOCOL TABLE AC SC Last administered on 07/29/18at 17:02; Start 07/29/18 at 07:30 Insulin Human Lispro (HumaLOG INSULIN) SEE PROTOCOL TABLE QHS SC Last administered on 07/29/18 20:09; Start 07/28/18 at 21:00 Lisinopril (Prinivil) 20 mg BID PO Last administered on 07/30/18 09:19; Start 07/29/18 at 21:00 Lisinopril (Prinivil) 20 mg DAILY PO Last administered on 07/29/18at 08:10; Start 07/29/18 at 09:00; Stop 07/29/18 at 10:44; Status DC Meclizine HCl (Antivert) 12.5 mg TID PO ; Start 07/30/18 at 09:00 Metoprolol Tartrate (Lopressor) 50 mg BID PO Last administered on 07/30/18 09:17; Start 07/28/18 at 21:00 Nitroglycerin (Nitrostat (1/ 150)) 0.4 mg Q5MP PRN SL CHEST PAIN; Start 07/28/18 at 18:45 Omeprazole (PriLOSEC) 20 mg DAILY PO ; Start 07/29/18 at 09:00; Stop 07/29/18 at 09:00; Status DC Omeprazole (PriLOSEC) 20 mg DAILY PO Last administered on 07/30/18 09:19; Start 07/29/18 at 09:00 Ondansetron HCl (Zofran) 4 mg Q6HP PRN PO NAUSEA Last administered on 07/30/18at 10:06; Start 07/28/18 at 18:45 Oxcarbazepine (Trileptal) 150 mg QAM PO Last administered on 07/30/18 09:17; Start 07/29/18 at 09:00 Oxcarbazepine (Trileptal) 300 mg QHS PO Last administered on 07/29/18 20:08; Start 07/28/18 at 21:00 Pantoprazole Sodium (Protonix) 40 mg QPM PO ; Start 07/29/18 at 21:00; Stop 07/29/18 at 21:00; Status DC Potassium Chloride (Micro-K Extencaps) 20 meq DAILY PO Last administered on 07/30/18 09:17; Start 07/29/18 at 09:00 Pravastatin Sodium (Pravachol) 40 mg QHS PO Last administered on 07/29/18at 20:08; Start 07/28/18 at 21:00 KOFI REDMOND MD July 30, 2018 12:24
--- NOTE | 2018-07-30 13:45 | REP ---
MR BRAIN WITHOUT CONTRAST: HISTORY: Altered mental status. COMPARISON: CT 07/30/2018 and MR 07/22/2018. A small area of increased signal intensity on diffusion and T2-weighted images is present in the right leeanna. This is isointense in signal intensity on ADC images and is consistent with a subacute infarction. Areas of increased signal intensity on T2-weighted images are present in the left basal ganglia, left thalamus, left leeanna and cerebellum. These represent old lacunar infarctions. Areas of increased signal intensity on T2-weighted images are present in the periventricular and subcortical white matter, leeanna and medulla. This represents small vessel ischemic disease. There is no intraparenchymal hemorrhage, acute infarct mass or midline shift. The ventricular system and cortical sulci are dilated consistent with moderate volume loss. There is no extracerebral collection. Mucosal thickening is present in the left mastoid air cells. The sinuses are clear. IMPRESSION: 1. Small subacute right pontine infarction. 2. Old left basal ganglia, left thalamic, left pontine and cerebellar lacunar infarctions. 3. Small vessel ischemic disease. 4. Moderate volume loss. Electronically Signed by John Ruiz MD 07/30/2018 01:49 P
[2018-07-30] MEDS: CARVedilol 6.25 MG TAB PO SCH ×2 (14:37→21:44)
--- NOTE | 2018-07-30 14:56 | REP ---
Clinical: Hypertension and chronic medical renal disease. Technique: Vanessa scale and color Doppler evaluation of the kidneys and renal vasculature using curved array transducer. Findings: The kidneys are essentially normal in contour, size and reniform shape without hydronephrosis, nephrolithiasis, cystic or renal mass lesion. Increased central sinus fat and intrarenal vascular calcifications suggests chronic age-related changes. Right kidney measures 13.2 x 6.7 x 6.4 cm . Left kidney measures 13.7 x 5.5 x 6.3 cm . Bladder demonstrates small amount of debris but otherwise unremarkable. Color Doppler evaluation of the renal vasculature demonstrates normal arterial wave patterns, velocities, renal aortic ratios, resistive indices and the acceleration time. No sonographic evidence for renal arterial stenosis noted. Renal vein is patent. Right Kidney: Peak arterial velocity: 287 cm/sec . Renal aortic ratio: 3.0 . Resistive indices: 0.81 - 0.86 . Acceleration times: 0.026 - 0.036 . Left kidney: Peak arterial velocity: 305 cm/sec. Renal aortic ratio: 3.2 . Resistive indices: 0.84 - 0.86 Acceleration times: 0.030 - 0.048. Impression: 1. Elevated resistive indices and visualized intrarenal vascular calcifications consistent with small vessel disease. 2. Bilateral parvus tardus wave forms and mildly elevated renal aortic ratios concerning for bilateral renal arterial stenosis. Further investigation including MR angiography may be warranted for further investigation. Electronically Signed by Merrill Nina MD 07/30/2018 02:47 P
[2018-07-30] MEDS: **hydrALAZINE HCL** 25 MG TAB PO SCH ×2 (17:18→21:43)
[2018-07-30] MEDS: cloNIDine 0.1 MG TAB PO SCH (21:43)
[2018-07-30] MEDS: PRAVASTATIN 20 MG TAB PO SCH (21:43)
[2018-07-30] MEDS: OXcarbazepine 300 MG TAB PO SCH (21:43)
[2018-07-31 06:00] VITALS: BP 160/76
[2018-07-31] MEDS: HEPARIN SOD (PORCINE) 5000 UNITS/ML VIAL SC SCH ×3 (06:00→21:00)
[2018-07-31] MEDS: IPRATROPIUM 0.5MG/ALBUTEROL 2.5MG INH SOL UD 3ML (DUONEB)(J7620) NEB SCH ×3 (07:36→20:24)
[2018-07-31] MEDS: METOPROLOL TART 50 MG TAB PO SCH ×2 (09:00→20:57)
[2018-07-31] MEDS: ASPIRIN 325 MG TAB PO SCH (09:57)
[2018-07-31] MEDS: OMEPRAZOLE 20 MG CAP PO SCH (09:57)
[2018-07-31] MEDS: CHLORHEXIDINE GLUCONATE 0.12 % 15ML UDC (PERIDEX ORAL RINSE) SSP SCH ×3 (09:58→21:00)
[2018-07-31] MEDS: GABAPENTIN 100 MG CAP PO SCH ×4 (09:59→20:58)
[2018-07-31] MEDS: guaiFENesin 200 MG TAB PO SCH ×2 (09:59→20:59)
[2018-07-31] MEDS: **hydrALAZINE HCL** 25 MG TAB PO SCH ×3 (09:59→20:57)
[2018-07-31] MEDS: POTASSIUM CHLORIDE 10 MEQ SR TABLET PO SCH (09:59)
[2018-07-31] MEDS: FUROSEMIDE 40 MG TAB PO SCH ×2 (09:59→17:02)
[2018-07-31] MEDS: MECLIZINE 12.5 MG TAB PO SCH ×2 (10:00→20:58)
[2018-07-31] MEDS: HumaLOG INSULIN (NovoLOG) PER UNIT SC SCH ×4 (10:00→21:00)
[2018-07-31] MEDS: LISINOPRIL 20 MG TAB PO SCH (10:00)
[2018-07-31] MEDS: CARVedilol 6.25 MG TAB PO SCH ×2 (10:00→20:57)
[2018-07-31] MEDS: LEVEMIR (INSULIN DETEMIR) 1 UNITS/0.01ML SC SCH ×2 (10:01→21:00)
[2018-07-31] MEDS: OXcarbazepine 150 MG TAB PO SCH ×2 (10:04→20:58)
--- NOTE | 2018-07-31 12:01 | IPNPDOC ---
Subjective Date Seen The patient was seen on 07/31/18. Subjective Chief Complaint/HPI Patient is a 68-year-old male, recently admitted for altered mental status and found to have right kayleen ischemic stroke. After stabilization in the medical unit. He was discharged to inpatient rehabilitation unit for mobilization and strengthening prior to discharge home. Events since last encounter Still extremely weak and sleepy this am. Staff report patient barely able to participate in therapy due to sleepiness. Patient denies any pain, chest pain, SOB Objective Physical Examination General Exam: Positive: Cooperative, No Acute Distress Eye Exam: Positive: PERRLA, Conjunctiva & lids normal, EOMI ENT Exam: Positive: Atraumatic, Mucous membr. moist/pink, Pharynx Normal Neck Exam: Positive: Supple; Negative: JVD, thyromegaly Chest Exam: Positive: Clear to auscultation, Normal air movement Heart Exam: Positive: Rate Normal Abdomen Exam: Positive: Normal bowel sounds, Soft; Negative: Tenderness Extremity Exam: Positive: Edema (2+ to BLE with venous stasis changes) Skin Exam: Positive: Other skin issue (venous stasis changes) Neuro Exam: Positive: Normal Tone; Negative: Normal Speech (slow speech), Strength at 5/5 X4 ext (right upper extremity weakness) Psych Exam: Positive: Mental status NL (sleepy) Assessment /Plan Problems (1) CVA (cerebral vascular accident) Problem Text: -ischemic type to right Kayleen with left extremity weakness -S/P ILR placement -MRI brain negative for new intracranial event -continued in rehab unit for mobilization/strengthening (2) Diastolic CHF, acute on chronic Problem Text: -continue fluid restriction, lasix -monitor electrolytes potasium and magnesium while on diuretic therapy -respiratory monitoring and support as needed (3) GERD (gastroesophageal reflux disease) Problem Text: -evaluation for dysphagia was deferred -continue PPI (4) Diabetes mellitus type 2, insulin dependent Status: Chronic Problem Text: -diabetic diet -fingerstick checks prior to meals and at bedtime -coverage with insulin per sliding scale protocol (5) Hypertension Status: Chronic Problem Text: -renal artery stenosis on US -still poorly controlled -continue on hydralazine, discontinue lisinopril -add imdur -monitoring per unit protocol -adjust medications and doses for target blood pressure systolic <140 (6) CAD (coronary artery disease) of bypass graft Status: Chronic Problem Text: -control blood pressure -continue statin therapy, aspirin -treatment of underlying heart failure (7) DVT prophylaxis Problem Text: -heparin 5000 units Q8 (8) Advance care planning Problem Text: -code status is DNR -disposistion to home when rehab completed (9) Postherpetic neuralgia Status: Acute Problem Text: -on Trileptal and having extreme sedation (10) Renal artery stenosis Problem Text: -possible stenosis seen on U/S which was ordered for hard to control blood pressure -O/P follow up with cardiology for further evaluation and management Plan/VTE VTE Prophylaxis Ordered?: Yes VS, I&O, 24H, Fishbone Vital Signs/I&O Vital Signs Date Time Temp Pulse Resp B/P (MAP) Pulse Ox O2 Delivery O2 Flow Rate FiO2 07/31/18 10:00 59 160/76 07/31/18 06:00 97.6 18 97 2.0 I&O- Last 24 Hours up to 6 AM 07/31/18 06:00 Intake Total 960 ml Output Total 450 ml Balance 510 ml Laboratory Data 24H LABS Laboratory Tests 2 07/30/18 11:56: Bedside Glucose (Misc Panel) 200H 07/30/18 16:51: Bedside Glucose (Misc Panel) 257H 07/30/18 20:25: Bedside Glucose (Misc Panel) 230H 07/31/18 06:37: Bedside Glucose (Misc Panel) 176H Microbiology Microbiology 07/28/18 Urine Culture, Received Pending DAMIEN LICEA Jul 31, 2018 12:01
[2018-07-31] MEDS: ISOSORBIDE MON. (IMDUR) 30 MG XR TAB PO SCH (12:56)
[2018-07-31 14:00] VITALS: BP 114/59
[2018-07-31 20:00] VITALS: BP 160/80
[2018-07-31] MEDS: PRAVASTATIN 20 MG TAB PO SCH (20:58)
[2018-07-31] MEDS: cloNIDine 0.1 MG TAB PO SCH (20:58)
[2018-08-01 05:52] VITALS: BP 160/74
[2018-08-01] MEDS: HEPARIN SOD (PORCINE) 5000 UNITS/ML VIAL SC SCH ×3 (06:33→21:36)
[2018-08-01 06:36] LABS: HEMATOCRIT 29.8 % (42.0-52.0); HEMOGLOBIN 9.5 g/dl (13.5-17.5); MEAN CORPUSCULAR HGB CONC 31.9 g/dl (32.0-36.5); PLATELET COUNT, AUTOMATED 282 10^3/uL (150-450); RED BLOOD COUNT 3.17 10^6/uL (4.30-6.10); WHITE BLOOD COUNT 8.1 10^3/uL (4.0-10.0)
[2018-08-01 06:55] LABS: ALBUMIN 2.4 GM/DL (3.2-5.2); BILIRUBIN,TOTAL 0.1 MG/DL (0.2-1.0); CALCIUM LEVEL 9.1 MG/DL (8.8-10.2); CREATININE FOR GFR 1.39 MG/DL (0.70-1.30); GLOMERULAR FILTRATION RATE 53.8 (>42); TOTAL PROTEIN 6.1 GM/DL (6.4-8.2)
[2018-08-01] MEDS: IPRATROPIUM 0.5MG/ALBUTEROL 2.5MG INH SOL UD 3ML (DUONEB)(J7620) NEB SCH ×3 (07:12→20:28)
[2018-08-01] MEDS: ASPIRIN 325 MG TAB PO SCH (08:53)
[2018-08-01] MEDS: FUROSEMIDE 40 MG TAB PO SCH ×2 (08:53→17:50)
[2018-08-01] MEDS: HumaLOG INSULIN (NovoLOG) PER UNIT SC SCH ×4 (08:53→21:00)
[2018-08-01] MEDS: GABAPENTIN 100 MG CAP PO SCH ×4 (08:54→21:33)
[2018-08-01] MEDS: OMEPRAZOLE 20 MG CAP PO SCH (08:54)
[2018-08-01] MEDS: guaiFENesin 200 MG TAB PO SCH ×2 (08:54→21:33)
[2018-08-01] MEDS: POTASSIUM CHLORIDE 10 MEQ SR TABLET PO SCH (08:54)
[2018-08-01] MEDS: ISOSORBIDE MON. (IMDUR) 30 MG XR TAB PO SCH (08:55)
[2018-08-01] MEDS: **hydrALAZINE HCL** 25 MG TAB PO SCH ×3 (08:55→21:35)
[2018-08-01] MEDS: CHLORHEXIDINE GLUCONATE 0.12 % 15ML UDC (PERIDEX ORAL RINSE) SSP SCH ×3 (08:56→21:32)
[2018-08-01] MEDS: OXcarbazepine 150 MG TAB PO SCH ×2 (08:56→21:33)
[2018-08-01] MEDS: METOPROLOL TART 50 MG TAB PO SCH ×2 (08:56→21:35)
[2018-08-01] MEDS: LEVEMIR (INSULIN DETEMIR) 1 UNITS/0.01ML SC SCH ×2 (08:56→21:36)
[2018-08-01] MEDS: CARVedilol 6.25 MG TAB PO SCH ×2 (08:57→21:35)
[2018-08-01] MEDS: amLODIPine 5 MG TAB PO SCH ×2 (09:00→17:49)
--- NOTE | 2018-08-01 10:06 | IPNPDOC ---
Subjective Date Seen The patient was seen on 08/01/18. Subjective Chief Complaint/HPI Patient is a 68-year-old male, recently admitted for altered mental status and found to have right kayleen ischemic stroke. After stabilization in the medical unit. He was discharged to inpatient rehabilitation unit for mobilization and strengthening prior to discharge home. Events since last encounter Concerned about possible urinary tract infection given urine culture findings. Denies dysuria, chills, fever, nausea, weakness. Staff report patient is more alert today. He reports he was treated for Sepsis in april of this year. Review of april hospitalization has no mention of sepsis. patient did have Poole cath insertion then Objective Physical Examination General Exam: Positive: Cooperative, No Acute Distress Eye Exam: Positive: PERRLA, Conjunctiva & lids normal, EOMI ENT Exam: Positive: Atraumatic, Mucous membr. moist/pink, Pharynx Normal Neck Exam: Positive: Supple; Negative: JVD, thyromegaly Chest Exam: Positive: Clear to auscultation, Normal air movement Heart Exam: Positive: Rate Normal Abdomen Exam: Positive: Normal bowel sounds, Soft; Negative: Tenderness Extremity Exam: Positive: Edema (2+ to BLE with venous stasis changes) Skin Exam: Positive: Other skin issue (venous stasis changes) Neuro Exam: Positive: Normal Tone; Negative: Normal Speech (slow speech), Strength at 5/5 X4 ext (right upper extremity weakness) Psych Exam: Positive: Mental status NL (sleepy) Assessment /Plan Problems (1) CVA (cerebral vascular accident) Problem Text: -ischemic type to right Kayleen with left extremity weakness -S/P ILR placement -MRI brain negative for new intracranial event -continued in rehab unit for mobilization/strengthening (2) Diastolic CHF, acute on chronic Problem Text: -continue fluid restriction, lasix -monitor electrolytes potasium and magnesium while on diuretic therapy -respiratory monitoring and support as needed (3) GERD (gastroesophageal reflux disease) Problem Text: -evaluation for dysphagia this week -continue PPI (4) Diabetes mellitus type 2, insulin dependent Status: Chronic Problem Text: -diabetic diet -fingerstick checks prior to meals and at bedtime -coverage with insulin per sliding scale protocol (5) Hypertension Status: Chronic Problem Text: -improving with medication adjustment -renal artery stenosis on US -still poorly controlled -discontinue clonidine -continue on hydralazine, imdur -monitoring per unit protocol -adjust medications and doses for target blood pressure systolic <140 (6) CAD (coronary artery disease) of bypass graft Status: Chronic Problem Text: -control blood pressure -continue statin therapy, aspirin -treatment of underlying heart failure (7) DVT prophylaxis Problem Text: -heparin 5000 units Q8 (8) Postherpetic neuralgia Status: Acute Problem Text: -patient more alert today with reduction of trileptal and me clizine doses -continue with tapering to trileptal only at night (9) Renal artery stenosis Problem Text: -possible stenosis seen on U/S which was ordered for hard to control blood pressure -O/P follow up with cardiology for further evaluation and management (10) VRE (vancomycin resistant enterococcus) culture positive Problem Text: -consult ID. -urine culture ws VRE negative april 2018 -follow ID recommendation on course of management (11) Advance care planning Problem Text: -code status is DNR -disposistion to home when rehab completed Plan/VTE VTE Prophylaxis Ordered?: Yes VS, I&O, 24H, Fishbone Vital Signs/I&O Vital Signs Date Time Temp Pulse Resp B/P (MAP) Pulse Ox O2 Delivery O2 Flow Rate FiO2 08/01/18 08:57 63 160/74 08/01/18 05:52 97.6 18 98 2.0 I&O- Last 24 Hours up to 6 AM 08/01/18 06:00 Intake Total 820 ml Output Total 475 ml Balance 345 ml Laboratory Data 24H LABS Laboratory Tests 2 07/31/18 12:07: Bedside Glucose (Misc Panel) 192H 07/31/18 16:46: Bedside Glucose (Misc Panel) 158H 07/31/18 20:49: Bedside Glucose (Misc Panel) 192H 08/01/18 06:14: Nucleated Red Blood Cells % (auto) 0.0, Anion Gap 7L, Glomerular Filtration Rate 53.8, Blood Urea Nitrogen 14, Creatinine 1.39H, Sodium Level 143, Potassium Level 4.0, Chloride Level 102, Carbon Dioxide Level 34H, Calcium Level 9.1, Aspartate Amino Transf (AST/SGOT) 15, Alanine Aminotransferase (ALT/SGPT) 18, Alkaline Phosphatase 71, Total Bilirubin 0.1L, Total Protein 6.1L, Albumin 2.4L, Albumin/Globulin Ratio 0.65L 08/01/18 06:35: Bedside Glucose (Misc Panel) 149H CBC/BMP Laboratory Tests 08/01/18 06:14 Red Blood Count 3.17 L, Mean Corpuscular Volume 94.0, Mean Corpuscular Hemog lobin 30.0, Mean Corpuscular Hemoglobin Concent 31.9 L, Red Cell Distribution Width 13.9, Calcium Level 9.1, Aspartate Amino Transf (AST/SGOT) 15, Alanine Aminotransferase (ALT/SGPT) 18, Alkaline Phosphatase 71, Total Bilirubin 0.1 L, Total Protein 6.1 L, Albumin 2.4 L Microbiology Microbiology 07/28/18 Urine Culture - Final, Complete Enterococcus Faecalis (Vre) DAMIEN LICEA SQL DATA ANALYST Aug 01, 2018 10:05
[2018-08-01 12:11] LABS: CLOSTRIDIUM DIFFICILE PCR NEGATIVE (NEGATIVE)
[2018-08-01 14:00] VITALS: BP_SYST 105; BP_SYST 184; BP_DIAS 55; BP_DIAS 84
[2018-08-01 19:30] VITALS: BP 179/79
[2018-08-01 20:00] VITALS: BP 185/99
[2018-08-01] MEDS: MECLIZINE 12.5 MG TAB PO SCH (21:33)
[2018-08-01] MEDS: PRAVASTATIN 20 MG TAB PO SCH (21:33)
[2018-08-02] MEDS: ACETAMINOPHEN TAB 650MG DOSE (2X325MG) PO PRN ×2 (01:22→20:59)
[2018-08-02 01:25] VITALS: BP 160/80
[2018-08-02] MEDS: HEPARIN SOD (PORCINE) 5000 UNITS/ML VIAL SC SCH ×3 (05:28→21:01)
[2018-08-02 06:00] VITALS: BP 172/80
[2018-08-02] MEDS: HumaLOG INSULIN (NovoLOG) PER UNIT SC SCH ×4 (08:12→21:00)
[2018-08-02] MEDS: ASPIRIN 325 MG TAB PO SCH (08:13)
[2018-08-02] MEDS: GABAPENTIN 100 MG CAP PO SCH ×4 (08:13→20:59)
[2018-08-02] MEDS: POTASSIUM CHLORIDE 10 MEQ SR TABLET PO SCH (08:13)
[2018-08-02] MEDS: guaiFENesin 200 MG TAB PO SCH ×2 (08:13→20:59)
[2018-08-02] MEDS: LEVEMIR (INSULIN DETEMIR) 1 UNITS/0.01ML SC SCH ×2 (08:13→21:00)
[2018-08-02] MEDS: OMEPRAZOLE 20 MG CAP PO SCH (08:13)
[2018-08-02] MEDS: FUROSEMIDE 40 MG TAB PO SCH ×2 (08:14→16:38)
[2018-08-02] MEDS: CHLORHEXIDINE GLUCONATE 0.12 % 15ML UDC (PERIDEX ORAL RINSE) SSP SCH ×3 (08:14→20:58)
[2018-08-02] MEDS: OXcarbazepine 150 MG TAB PO SCH (08:14)
[2018-08-02] MEDS: CARVedilol 6.25 MG TAB PO SCH ×2 (08:17→20:59)
[2018-08-02] MEDS: **hydrALAZINE HCL** 25 MG TAB PO SCH ×3 (08:17→21:00)
[2018-08-02] MEDS: ISOSORBIDE MON. (IMDUR) 30 MG XR TAB PO SCH (08:17)
[2018-08-02] MEDS: METOPROLOL TART 50 MG TAB PO SCH (08:18)
[2018-08-02] MEDS: IPRATROPIUM 0.5MG/ALBUTEROL 2.5MG INH SOL UD 3ML (DUONEB)(J7620) NEB SCH ×3 (08:19→19:51)
--- NOTE | 2018-08-02 10:46 | IPNPDOC ---
Subjective Date Seen The patient was seen on 08/02/18. Subjective Chief Complaint/HPI Patient is a 68-year-old male, recently admitted for altered mental status and found to have right kayleen ischemic stroke. After stabilization in the medical unit. He was discharged to inpatient rehabilitation unit for mobilization and strengthening prior to discharge home. Events since last encounter Has no complaints this morning, denies weakness, headache, chest pain, SOB Objective Physical Examination General Exam: Positive: Cooperative, No Acute Distress Eye Exam: Positive: PERRLA, Conjunctiva & lids normal, EOMI ENT Exam: Positive: Atraumatic, Mucous membr. moist/pink, Pharynx Normal Neck Exam: Positive: Supple; Negative: JVD, thyromegaly Chest Exam: Positive: Clear to auscultation, Normal air movement Heart Exam: Positive: Rate Normal Abdomen Exam: Positive: Normal bowel sounds, Soft; Negative: Tenderness Extremity Exam: Positive: Edema (2+ to BLE with venous stasis changes) Skin Exam: Positive: Other skin issue (venous stasis changes) Neuro Exam: Positive: Normal Tone; Negative: Normal Speech (slow speech), Strength at 5/5 X4 ext (right upper extremity weakness) Psych Exam: Positive: Mental status NL (sleepy) Assessment /Plan Problems (1) CVA (cerebral vascular accident) Problem Text: -ischemic type to right Kayleen with left extremity weakness -S/P ILR placement -MRI brain negative for new intracranial event -continued in rehab unit for mobilization/strengthening (2) Diastolic CHF, acute on chronic Problem Text: -continue fluid restriction, lasix -monitor electrolytes potasium and magnesium while on diuretic therapy (3) GERD (gastroesophageal reflux disease) Problem Text: -ongoing dysphagia evaluation -patient still having problems with thin liquids -follow CLINICAL NURSING ASSISTANT recommendations -continue PPI (4) Diabetes mellitus type 2, insulin dependent Status: Chronic Problem Text: -diabetic diet -fingerstick checks prior to meals and at bedtime -coverage with insulin per sliding scale protocol (5) Hypertension Status: Chronic Problem Text: -improving -renal artery stenosis on US -continue on hydralazine, imdur -monitoring per unit protocol -adjust medications and doses for target blood pressure systolic <140 (6) CAD (coronary artery disease) of bypass graft Status: Chronic Problem Text: -control blood pressure -continue statin therapy, aspirin -treatment of underlying heart failure (7) DVT prophylaxis Problem Text: -heparin 5000 units Q8 (8) Postherpetic neuralgia Status: Acute Problem Text: -increased day time sedation. -continue to taper off trileptal to only HS dosing (9) Renal artery stenosis Problem Text: -possible stenosis seen on U/S which was ordered for hard to control blood pressure -O/P follow up with cardiology for further evaluation and management (10) VRE (vancomycin resistant enterococcus) culture positive Problem Text: -patient reports incontinence which he has had for a while -ID has been consulted for VRE findings on culture. -urine culture was VRE negative april 2018 -follow ID recommendation for recommendations for management (11) Advance care planning Problem Text: -code status is DNR -disposistion to home when rehab completed Plan/VTE VTE Prophylaxis Ordered?: Yes VS, I&O, 24H, Fishbone Vital Signs/I&O Vital Signs Date Time Temp Pulse Resp B/P (MAP) Pulse Ox O2 Delivery O2 Flow Rate FiO2 08/02/18 08:18 60 150/67 08/02/18 06:00 97.5 18 97 2.0 I&O- Last 24 Hours up to 6 AM 08/02/18 06:00 Intake Total 780 ml Output Total 800 ml Balance -20 ml Laboratory Data 24H LABS Laboratory Tests 2 08/01/18 11:10: Clostridium difficile [id number] PRESUMPTIVE NEGATIVE, Clostridium difficile Toxin (PCR) NEGATIVE 08/01/18 11:14: Bedside Glucose (Misc Panel) 250H 08/01/18 17:10: Bedside Glucose (Misc Panel) 234H 08/01/18 20:27: Bedside Glucose (Misc Panel) 174H 08/02/18 01:13: Bedside Glucose (Misc Panel) 142H 08/02/18 05:17: Bedside Glucose (Misc Panel) 179H Microbiology Microbiology 07/28/18 Urine Culture - Final, Complete Enterococcus Faecalis (Vre) DAMIEN LICEA FINAL TOUCH UP PAINTER Aug 02, 2018 10:46
[2018-08-02 14:00] VITALS: BP 134/59
[2018-08-02] MEDS: amLODIPine 5 MG TAB PO SCH (17:32)
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
[2018-08-02] MEDS ORDERED: OXcarbazepine 150 MG TAB PO SCH (20:00)
[2018-08-02 20:48] VITALS: BP 196/94
[2018-08-02 20:49] VITALS: BP 202/82
[2018-08-02] MEDS: PRAVASTATIN 20 MG TAB PO SCH (20:59)
[2018-08-02] MEDS: MECLIZINE 12.5 MG TAB PO SCH (21:09)
[2018-08-02 22:00] VITALS: BP 158/70
[2018-08-03] MEDS: HEPARIN SOD (PORCINE) 5000 UNITS/ML VIAL SC SCH ×3 (06:05→21:05)
[2018-08-03 06:06] VITALS: BP 150/77
[2018-08-03 06:07] LABS: HEMATOCRIT 31.5 % (42.0-52.0); HEMOGLOBIN 10.2 g/dl (13.5-17.5); MEAN CORPUSCULAR HGB CONC 32.4 g/dl (32.0-36.5); MEAN CORPUSCULAR VOLUME 95.7 fl (80.0-96.0); PLATELET COUNT, AUTOMATED 280 10^3/uL (150-450); RED BLOOD COUNT 3.29 10^6/uL (4.30-6.10); WHITE BLOOD COUNT 6.6 10^3/uL (4.0-10.0)
[2018-08-03 06:34] LABS: ALBUMIN 2.3 GM/DL (3.2-5.2); ALT/SGPT 18 U/L (12-78); BILIRUBIN,TOTAL < 0.1 MG/DL (0.2-1.0); BLOOD UREA NITROGEN 14 MG/DL (7-18); CALCIUM LEVEL 8.6 MG/DL (8.8-10.2); CARBON DIOXIDE LEVEL 35 MEQ/L (21-32); CHLORIDE LEVEL 99 MEQ/L (98-107); CREATININE FOR GFR 1.44 MG/DL (0.70-1.30); GLOMERULAR FILTRATION RATE 51.6 (>42); GLUCOSE, FASTING 150 MG/DL (70-100); POTASSIUM SERUM 4.1 MEQ/L (3.5-5.1); SODIUM LEVEL 141 MEQ/L (136-145); TOTAL PROTEIN 6.6 GM/DL (6.4-8.2)
[2018-08-03] MEDS: ASPIRIN 325 MG TAB PO SCH (08:16)
[2018-08-03] MEDS: ACETAMINOPHEN TAB 650MG DOSE (2X325MG) PO PRN ×2 (08:16→23:22)
[2018-08-03] MEDS: OMEPRAZOLE 20 MG CAP PO SCH (08:16)
[2018-08-03] MEDS: GABAPENTIN 100 MG CAP PO SCH ×3 (08:17→20:40)
[2018-08-03] MEDS: POTASSIUM CHLORIDE 10 MEQ SR TABLET PO SCH (08:17)
[2018-08-03] MEDS: guaiFENesin 200 MG TAB PO SCH ×2 (08:17→20:40)
[2018-08-03] MEDS: amLODIPine 5 MG TAB PO SCH (08:17)
[2018-08-03] MEDS: CHLORHEXIDINE GLUCONATE 0.12 % 15ML UDC (PERIDEX ORAL RINSE) SSP SCH ×3 (08:19→20:40)
[2018-08-03] MEDS: HumaLOG INSULIN (NovoLOG) PER UNIT SC SCH ×4 (08:19→20:46)
[2018-08-03] MEDS: LEVEMIR (INSULIN DETEMIR) 1 UNITS/0.01ML SC SCH ×2 (08:19→20:41)
[2018-08-03] MEDS: CARVedilol 6.25 MG TAB PO SCH ×2 (08:20→20:42)
[2018-08-03] MEDS: **hydrALAZINE HCL** 25 MG TAB PO SCH ×3 (08:20→20:41)
[2018-08-03] MEDS: FUROSEMIDE 40 MG TAB PO SCH ×2 (08:20→16:22)
[2018-08-03] MEDS: ISOSORBIDE MON. (IMDUR) 30 MG XR TAB PO SCH (08:20)
[2018-08-03] MEDS: IPRATROPIUM 0.5MG/ALBUTEROL 2.5MG INH SOL UD 3ML (DUONEB)(J7620) NEB SCH ×3 (08:32→21:14)
[2018-08-03 14:00] VITALS: BP 172/75
[2018-08-03] MEDS ORDERED: valACYclovir HCL 500 MG TAB PO SCH (15:00)
[2018-08-03] MEDS: valACYclovir HCL 500 MG TAB PO SCH ×2 (16:22→20:40)
[2018-08-03] MEDS: prednisoLONE ACET 1% OPHTH SUSP 5ML OD SCH ×3 (16:22→20:41)
[2018-08-03] MEDS ORDERED: LOPERAMIDE 2 MG CAP PO PRN (17:30)
--- NOTE | 2018-08-03 17:33 | IPNPDOC ---
PM&R Progress Note DATE OF SERVICE: Aug 03, 2018 Stock Dealer Progress Note Subjective: Patient reports he felt better through the weekend, denies dizziness. he is still having difficulty swallowing and loose stools. At 1pm he reported shooting right ear pain reminiscent of his facial Zoster outbreak and experienced 30 minutes of right eye blurriness without pain. He reports he had this sensation during the Zoster outbreak. REVIEW OF SYSTEMS: The following is a completed review of systems and has been reviewed. Review of systems otherwise unremarkable. PAIN: Patient self reports no pain EYES: +intermittent right eye blurriness EARS, NOSE, & THROAT:+dysphagia CARDIOVASCULAR: denies chest pain or palpitations PULMONARY: Negative. Denies shortness of breath GASTROINTESTINAL: +diarrhea GENITOURINARY: Negative for dysuria or incontinence MUSCULOSKELETAL: LUE weakness NEUROLOGICAL: LUE weakness, peripheral neuropathy HEMATOLOGICAL: Negative SKIN: bilateral anterior guerin ulcers PSYCHIATRIC: Unremarkable All other review of systems found to be negative. PHYSICAL EXAMINATION: VITAL SIGNS: Please see below. GENERAL: Pleasant and cooperative. No acute distress. HEENT: PERRL. Extraocular movements intact. Clear conjunctiva CARDIOVASCULAR: Regular rate and rhythm. No murmurs, rubs, or gallops LUNGS: Clear to auscultation bilaterally. No wheezes. No rhonchi ABDOMEN: Soft, nontender, nondistended. Positive bowel sounds. Normal active bowel sounds. NEUROLOGICAL: Alert and oriented times three. Cranial nerves II through XII grossly intact. Sensation to light touch diminished in stocking pattern in LE, intact in UE EXTREMITIES: 5\5 strength bilateral upper extremities, mild pronator drift on the left. 5\5 strength right lower extremity. 5/5 strength in left lower extremity. bilateral edema (-) Homans bilat SKIN: hyperpigmentation of caves with scattered dry ulcers bilat anterior shins and dorsum of D2 on the left ASSESSMENT: 68-year-old M with past medical history of CAD s/p CABG, diastolic CHF, stroke who presents status post right pontine stroke complicated by dysphagia and pneumonia. PLAN: 1. Rehab: OT, OT, BILINGUAL CASE MANAGER- c/u honey thickened and puree, may repeat MBS prn, mod- severe dysphagia, esophagram normal from inpatient stay 2. Neuro: pmh 2 strokes in 2014 and recent right pontine stroke- c/u ASA 325mg daily and statin therapy- f/u outpatient neurology -episode of AMS with increased dizziness 07/30/18, CT negative for new stroke, repeat MRI also negative -BPs better controlled 3. cardiac: pmh CAD s/p CABG, Aortic valve replacement, poorly controlled HTN and recent ECHO 07/24/18 showing grade 2 diastolic dysfunction- c/u diuretics and BP meds, adjust prn- medicine consulted to assist is management, will ask kindly to adjust diuretic for increasing Chain Builder -HTN improving on hydralazine, clonidine, and Imdur -fluid restrict to 1800cc and Lasix for CHF- medicine following -Renal US positive for renal artery stenosis will set up with cardiology for IR intervention upon discharge -c/u nocturnal 02 3. Resp: s/p recent aspiration pneumonia and currently off antibiotics, will monitor and obtain repeat CXR- encourage incentive spirometry and c/u breathing treatments and guaifenesin -CHlorohexidine mouth wash to protect against aspiration PNA 4. Endo: pmh dm with severe peripheral neuropathy- c/i ISS and adjust prn, will recommend with diabetic shoes 5. GI ppx: prilosec, immodium prn for loose stools- c diff negative -will defer GI scope for now for concern for esophageal dysmotility 6. DVT ppx: TEDs and heparin 7. SKin: acewrap bilat LE for edema 8. ID: Admission Ucx + for VRE, asymptomatic, no treatment ordered, ID recs appreciated -patient today reporting symptoms concerning for reoccurrence of right sided facial Zoster with ophthalmicus- called patient's pharmacy and appears he received a 7 day course of Valtrex 500 daily starting 07/05/18 and then received 2 doses while on inpatient side recently- discussed with pharmacy, patient was undertreated, will start Valtrex 1g TID x 7 days and add steroid eye drop to prevent corneal scarring-discussed with medicine 9. Dispo: 08/10/18 to home Allergies Coded Allergies: No Known Allergies (Unverified , 07/19/18) Vital Signs Vital Signs Date Time Temp Pulse Resp B/P (MAP) Pulse Ox O2 Delivery O2 Flow Rate FiO2 08/03/18 16:22 172/75 08/03/18 14:00 97.3 66 18 93 08/03/18 06:06 2.0 Laboratory Data CBC/BMP Laboratory Tests 08/03/18 05:48 Red Blood Count 3.29 L, Mean Corpuscular Volume 95.7, Mean Corpuscular Hem oglobin 31.0, Mean Corpuscular Hemoglobin Concent 32.4, Red Cell Distribution Width 13.7, Calcium Level 8.6 L, Aspartate Amino Transf (AST/SGOT) 11, Alanine Aminotransferase (ALT/SGPT) 18, Alkaline Phosphatase 81, Total Bilirubin < 0.1 L, Total Protein 6.6, Albumin 2.3 L Labs 24H Laboratory Tests 2 08/02/18 20:45: Bedside Glucose (Misc Panel) 298H 08/03/18 05:48: Nucleated Red Blood Cells % (auto) 0.0, Anion Gap 7L, Glomerular Filtration Rate 51.6, Blood Urea Nitrogen 14, Creatinine 1.44H, Sodium Level 141, Potassium Level 4.1, Chloride Level 99, Carbon Dioxide Level 35H, Calcium Level 8.6L, Aspartate Amino Transf (AST/SGOT) 11, Alanine Aminotransferase (ALT/SGPT) 18, Alkaline Phosphatase 81, Total Bilirubin < 0.1L, Total Protein 6.6, Albumin 2.3L, Albumin/Globulin Ratio 0.53L 08/03/18 11:21: Bedside Glucose (Misc Panel) 182H 08/03/18 16:32: Bedside Glucose (Misc Panel) 215H Microbiology Microbiology 07/28/18 Urine Culture - Final, Complete Enterococcus Faecalis (Vre) Current Medications Current Medications Current Medications Acetaminophen (Tylenol Tab) 650 mg Q4HP PRN PO MILD PAIN (PS 1-4) Last administered on 08/03/18 08:16; Start 07/28/18 at 18:45 Albuterol/ Ipratropium (Duoneb (Ipr 0.5mg/Alb 2.5mg)) 3 ml RTID NEB Last administered on 08/03/18 08:32; Start 07/29/18 at 20:00 Amlodipine Besylate (Norvasc) 5 mg DAILY PO Last administered on 08/03/18 08:17; Start 08/01/18 at 09:00 Aspirin (Aspirin) 325 mg DAILY PO Last administered on 08/03/18 08:16; Start 07/29/18 at 09:00 Carvedilol (COReg) 6.25 mg BID PO Last administered on 08/03/18 08:20; Start 07/30/18 at 12:00 Chlorhexidine Gluconate (Peridex Oral Rinse) 15 ml TID SSP Last administered on 08/03/18 16:22; Start 07/29/18 at 16:00 Clonidine HCl (Catapres) 0.1 mg QHS PO Last administered on 07/31/18at 20:58; Start 07/29/18 at 21:00; Stop 08/01/18 at 14:22; Status DC Dextrose (Dextrose 50%) 25 ml ASDIRECTED PRN IV SEE LABEL COMMENTS; Start 07/28/18 at 18:45 Furosemide (Lasix) 40 mg BID@,17 PO Last administered on 08/03/18 16:22; Start 07/29/18 at 09:00 Gabapentin (Neurontin) 100 mg BID PO ; Start 08/03/18 at 21:00 Gabapentin (Neurontin) 100 mg QID PO Last administered on 08/03/18at 12:01; Start 07/28/18 at 21:00; Stop 08/03/18 at 13:00; Status DC Glucagon (Glucagon) 1 mg ASDIRECTED PRN SC SEE LABEL COMMENTS; Start 07/28/18 at 18:45 Glucose (Glucose) 16 GM ASDIRECTED PRN PO SEE LABEL COMMENTS; Start 07/28/18 at 18:45 Guaifenesin (Robitussin Tab) 400 mg BID PO Last administered on 08/03/18at 08:17; Start 07/29/18 at 21:00 Heparin Sodium (Porcine) (Heparin) 5,000 units Q8H SC Last administered on 08/03/18at 14:10; Start 07/28/18 at 22:00 Hydralazine HCl (Apresoline) 25 mg Q6HP PRN PO prn for >140 sBP Last administered on 07/29/18at 09:13; Start 07/28/18 at 18:45; Stop 07/29/18 at 10:44; Status DC Hydralazine HCl (Apresoline) 25 mg TID PO Last administered on 08/03/18 16:22; Start 08/02/18 at 16:00 Hydralazine HCl (Apresoline) 50 mg Q6HP PRN PO prn for >140 sBP; Start 07/29/18 at 10:45; Stop 07/29/18 at 10:51; Status DC Hydralazine HCl (Apresoline) 50 mg Q6HP PRN PO prn for >140 sBP Last administered on 07/30/18at 10:57; Start 07/29/18 at 17:00; Stop 07/30/18 at 10:59; Status DC Hydralazine HCl (Apresoline) 50 mg TID PO Last administered on 08/02/18at 08:17; Start 07/30/18 at 16:00; Stop 08/02/18 at 10:42; Status DC Insulin Detemir (Levemir Insulin) 18 units BID SC Last administered on 08/03/18at 08:19; Start 07/28/18 at 21:00 Insulin Human Lispro (HumaLOG INSULIN) SEE PROTOCOL TABLE AC SC Last administered on 08/03/18at 12:01; Start 07/29/18 at 07:30 Insulin Human Lispro (HumaLOG INSULIN) SEE PROTOCOL TABLE QHS SC Last administered on 08/02/18at 21:00; Start 07/28/18 at 21:00 Isosorbide Mononitrate (Imdur) 30 mg DAILY PO Last administered on 08/03/18at 08:20; Start 07/31/18 at 09:00 Lisinopril (Prinivil) 20 mg BID PO Last administered on 07/31/18at 10:00; Start 07/29/18 at 21:00; Stop 07/31/18 at 11:53; Status DC Lisinopril (Prinivil) 20 mg DAILY PO Last administered on 07/29/18at 08:10; Start 07/29/18 at 09:00; Stop 07/29/18 at 10:44; Status DC Meclizine HCl (Antivert) 12.5 mg QHS PO Last administered on 08/02/18 21:09; Start 07/31/18 at 21:00 Meclizine HCl (Antivert) 12.5 mg TID PO Last administered on 07/31/18at 10:00; Start 07/30/18 at 09:00; Stop 07/31/18 at 11:24; Status DC Metoprolol Tartrate (Lopressor) 50 mg BID PO Last administered on 08/01/18at 21:35; Start 07/28/18 at 21:00; Stop 08/02/18 at 10:51; Status DC Nitroglycerin (Nitrostat (1/ 150)) 0.4 mg Q5MP PRN SL CHEST PAIN; Start 07/28/18 at 18:45 Omeprazole (PriLOSEC) 20 mg DAILY PO ; Start 07/29/18 at 09:00; Stop 07/29/18 at 09:00; Status DC Omeprazole (PriLOSEC) 20 mg DAILY PO Last administered on 08/03/18 08:16; Start 07/29/18 at 09:00 Ondansetron HCl (Zofran) 4 mg Q6HP PRN PO NAUSEA Last administered on 07/30/18 10:06; Start 07/28/18 at 18:45 Oxcarbazepine (Trileptal) 150 mg BID PO Last administered on 08/02/18 08:14; Start 07/31/18 at 21:00; Stop 08/02/18 at 10:44; Status DC Oxcarbazepine (Trileptal) 150 mg DAILY@2000 PO Last administered on 08/02/18 21:09; Start 08/02/18 at 20:00 Oxcarbazepine (Trileptal) 150 mg QAM PO Last administered on 07/31/18 10:04; Start 07/29/18 at 09:00; Stop 07/31/18 at 11:26; Status DC Oxcarbazepine (Trileptal) 300 mg QHS PO Last administered on 07/30/18 21:43; Start 07/28/18 at 21:00; Stop 07/31/18 at 11:26; Status DC Pantoprazole Sodium (Protonix) 40 mg QPM PO ; Start 07/29/18 at 21:00; Stop 07/29/18 at 21:00; Status DC Potassium Chloride (Micro-K Extencaps) 20 meq DAILY PO Last administered on 08/03/18 08:17; Start 07/29/18 at 09:00 Pravastatin Sodium (Pravachol) 40 mg QHS PO Last administered on 08/02/18 20:59; Start 07/28/18 at 21:00 Prednisolone Acetate (Predforte 1% Ophth Susp) 2 drop QID OD Last administered on 08/03/18 16:22; Start 08/03/18 at 14:15 Psyllium Hydrophilic Mucilloid (Metamucil) 1 pkt BID PO ; Start 08/03/18 at 21:00 Valacyclovir HCl (Valtrex) 1,000 mg DAILY PO ; Start 08/03/18 at 15:00; Stop 08/03/18 at 15:26; Status DC Valacyclovir HCl (Valtrex) 1,000 mg TID PO Last administered on 08/03/18at 16:22; Start 08/03/18 at 16:00; Stop 08/10/18 at 09:01 KOIF REDMOND MD Aug 03, 2018 17:33
--- NOTE | 2018-08-03 18:06 | IPNPDOC ---
Subjective Date Seen The patient was seen on 08/03/18. Subjective Chief Complaint/HPI Patient is a 68-year-old male, recently admitted for altered mental status and found to have right kayleen ischemic stroke. Events since last encounter Up to chair bedside, alert, awake, states he has not felt better. Complains of pain to right ear and neck Objective Physical Examination General Exam: Positive: Cooperative, No Acute Distress Eye Exam: Positive: PERRLA, Conjunctiva & lids normal, EOMI ENT Exam: Positive: Atraumatic, Mucous membr. moist/pink, Pharynx Normal Neck Exam: Positive: Supple; Negative: JVD, thyromegaly Chest Exam: Positive: Clear to auscultation, Normal air movement Heart Exam: Positive: Rate Normal Abdomen Exam: Positive: Normal bowel sounds, Soft; Negative: Tenderness Extremity Exam: Positive: Edema (2+ to BLE with venous stasis changes) Skin Exam: Positive: Other skin issue (venous stasis changes) Neuro Exam: Positive: Normal Tone; Negative: Normal Speech (slow speech), Strength at 5/5 X4 ext (right upper extremity weakness) Psych Exam: Positive: Mental status NL (sleepy) Assessment /Plan Problems (1) CVA (cerebral vascular accident) Problem Text: -ischemic type to right Kayleen with left extremity weakness -has not had any new changes -mental status continued to improve -S/P ILR placement -MRI brain negative for new intracranial event -continued in rehab unit for mobilization/strengthening (2) Diastolic CHF, acute on chronic Problem Text: -Reduce Lasix to 60 mg daily -Continue strict input output and other guideline directed medical management of heart failure (3) GERD (gastroesophageal reflux disease) Problem Text: -continue aspiration precautions -continue PPI (4) Diabetes mellitus type 2, insulin dependent Status: Chronic Problem Text: -diabetic diet -fingerstick checks prior to meals and at bedtime -coverage with insulin per sliding scale protocol (5) Hypertension Status: Chronic Problem Text: -continue on hydralazine, imdur -monitoring per unit protocol -adjust medications and doses for target blood pressure systolic <140 (6) CAD (coronary artery disease) of bypass graft Status: Chronic Problem Text: -control blood pressure -continue statin therapy, aspirin -treatment of underlying heart failure (7) DVT prophylaxis Problem Text: -heparin 5000 units Q8 (8) Postherpetic neuralgia Status: Acute Problem Text: -started on valtrex today. -discontinue trileptal (9) Renal artery stenosis Problem Text: -possible stenosis seen on U/S which was ordered for hard to control blood pressure -O/P follow up with cardiology for further evaluation and management (10) VRE (vancomycin resistant enterococcus) culture positive Problem Text: -patient reports incontinence which he has had for a while -ID has been consulted for VRE findings on culture. -urine culture was VRE negative april 2018 -follow ID recommendation for recommendations for management (11) Advance care planning Problem Text: -code status is DNR -disposistion to home when rehab completed Plan/VTE VTE Prophylaxis Ordered?: Yes VS, I&O, 24H, Fishbone Vital Signs/I&O Vital Signs Date Time Temp Pulse Resp B/P (MAP) Pulse Ox O2 Delivery O2 Flow Rate FiO2 08/03/18 16:22 172/75 08/03/18 14:00 97.3 66 18 93 08/03/18 06:06 2.0 I&O- Last 24 Hours up to 6 AM 08/03/18 06:00 Intake Total 1410 ml Output Total 400 ml Balance 1010 ml Laboratory Data 24H LABS Laboratory Tests 2 08/02/18 20:45: Bedside Glucose (Misc Panel) 298H 08/03/18 05:48: Nucleated Red Blood Cells % (auto) 0.0, Anion Gap 7L, Glomerular Filtration Rate 51.6, Blood Urea Nitrogen 14, Creatinine 1.44H, Sodium Level 141, Potassium Leve l 4.1, Chloride Level 99, Carbon Dioxide Level 35H, Calcium Level 8.6L, Aspartate Amino Transf (AST/SGOT) 11, Alanine Aminotransferase (ALT/SGPT) 18, Alkaline Phosphatase 81, Total Bilirubin < 0.1L, Total Protein 6.6, Albumin 2.3L, Albumin/Globulin Ratio 0.53L 08/03/18 11:21: Bedside Glucose (Misc Panel) 182H 08/03/18 16:32: Bedside Glucose (Misc Panel) 215H CBC/BMP Laboratory Tests 08/03/18 05:48 Red Blood Count 3.29 L, Mean Corpuscular Volume 95.7, Mean Corpuscular Hemoglobin 31.0, Mean Corpuscular Hemoglobin Concent 32.4, Red Cell Distribution Width 13.7, Calcium Level 8.6 L, Aspartate Amino Transf (AST/SGOT) 11, Alanine Aminotransferase (ALT/SGPT) 18, Alkaline Phosphatase 81, Total Bilirubin < 0.1 L, Total Protein 6.6, Albumin 2.3 L Microbiology Microbiology 07/28/18 Urine Culture - Final, Complete Enterococcus Faecalis (Vre) DAMIEN LICEA [facility] Aug 03, 2018 18:06
[2018-08-03 20:00] VITALS: BP 166/80
[2018-08-03] MEDS: METAMUCIL (PSYLLIUM) PACKET PO SCH (20:39)
[2018-08-03] MEDS: PRAVASTATIN 20 MG TAB PO SCH (20:40)
[2018-08-04] MEDS: HEPARIN SOD (PORCINE) 5000 UNITS/ML VIAL SC SCH ×3 (05:40→21:22)
[2018-08-04 06:00] VITALS: BP 160/72
[2018-08-04] MEDS: OMEPRAZOLE 20 MG CAP PO SCH (08:48)
[2018-08-04] MEDS: CARVedilol 6.25 MG TAB PO SCH ×2 (08:48→21:23)
[2018-08-04] MEDS: CHLORHEXIDINE GLUCONATE 0.12 % 15ML UDC (PERIDEX ORAL RINSE) SSP SCH ×3 (08:48→21:22)
[2018-08-04] MEDS: ASPIRIN 325 MG TAB PO SCH (08:49)
[2018-08-04] MEDS: **hydrALAZINE HCL** 25 MG TAB PO SCH ×3 (08:49→21:23)
[2018-08-04] MEDS: guaiFENesin 200 MG TAB PO SCH ×2 (08:49→21:21)
[2018-08-04] MEDS: valACYclovir HCL 500 MG TAB PO SCH ×3 (08:49→21:24)
[2018-08-04] MEDS: ISOSORBIDE MON. (IMDUR) 30 MG XR TAB PO SCH (08:49)
[2018-08-04] MEDS: POTASSIUM CHLORIDE 10 MEQ SR TABLET PO SCH (08:50)
[2018-08-04] MEDS: amLODIPine 5 MG TAB PO SCH (08:50)
[2018-08-04] MEDS: GABAPENTIN 100 MG CAP PO SCH ×2 (08:50→21:21)
[2018-08-04] MEDS: METAMUCIL (PSYLLIUM) PACKET PO SCH ×2 (08:50→21:21)
[2018-08-04] MEDS: FUROSEMIDE 20 MG TAB PO SCH (08:50)
[2018-08-04] MEDS: HumaLOG INSULIN (NovoLOG) PER UNIT SC SCH ×4 (08:51→21:00)
[2018-08-04] MEDS: LEVEMIR (INSULIN DETEMIR) 1 UNITS/0.01ML SC SCH ×2 (08:51→21:24)
[2018-08-04] MEDS: prednisoLONE ACET 1% OPHTH SUSP 5ML OD SCH ×4 (08:51→21:25)
[2018-08-04] MEDS: IPRATROPIUM 0.5MG/ALBUTEROL 2.5MG INH SOL UD 3ML (DUONEB)(J7620) NEB SCH ×3 (08:57→20:09)
[2018-08-04 14:00] VITALS: BP 140/63
[2018-08-04 20:00] VITALS: BP 160/80
[2018-08-04] MEDS: PRAVASTATIN 20 MG TAB PO SCH (21:21)
--- NOTE | 2018-08-04 21:56 | IPNPDOC ---
Subjective Date Seen The patient was seen on 08/04/18. Subjective Chief Complaint/HPI Pt was seen and examined at bedside. Complains of Rt ear pain s/p herpes zoster weeks ago. General: Reports: Normal Appetite; Denies: Chills, Night Sweats, Fatigue, Malaise Constitutional: Denies: Chills, Fever, Night Sweats Eyes: Denies: Pain, Vision change ENT: Denies: Head Aches, Ear Pain, Dysphagia Skin: Denies: Rash, Lesions, Breakdown Pulmonary: Denies: Dyspnea, Cough Cardiovascular: Denies: Chest Pain, Palpitations, Orthopnea, Paroxysmal Noc. Dyspnea, Lt Headedness Gastrointestinal: Denies: Nausea, Vomiting, Abdominal Pain, Diarrhea, Constipation Genitourinary: Denies: Dysuria, Frequency, Incontinence, Retention Hematologic: Denies: Bruising, Bleeding Excessively Objective Physical Examination General Exam: Positive: Cooperative, No Acute Distress Eye Exam: Positive: PERRLA, Conjunctiva & lids normal, EOMI ENT Exam: Positive: Atraumatic, Mucous membr. moist/pink, Pharynx Normal Neck Exam: Positive: Supple; Negative: JVD, thyromegaly Chest Exam: Positive: Clear to auscultation, Normal air movement Heart Exam: Positive: Rate Normal Abdomen Exam: Positive: Normal bowel sounds, Soft; Negative: Tenderness Extremity Exam: Positive: Edema (2+ to BLE with venous stasis changes) Skin Exam: Positive: Other skin issue (venous stasis changes) Neuro Exam: Positive: Normal Tone; Negative: Normal Speech (slow speech), Strength at 5/5 X4 ext (right upper extremity weakness) Psych Exam: Positive: Mental status NL (sleepy) Assessment /Plan Assessment Problems (1) CVA (cerebral vascular accident) Problem Text: -ischemic type to right Kayleen with left extremity weakness -has not had any new changes -mental status continued to improve -S/P ILR placement -MRI brain negative for new intracranial event -continued in rehab unit for mobilization/strengthening (2) Diastolic CHF, acute on chronic Problem Text: -Reduce Lasix to 60 mg daily -Continue strict input output and other guideline directed medical management of heart failure (3) GERD (gastroesophageal reflux disease) Problem Text: -continue aspiration precautions -continue PPI (4) Diabetes mellitus type 2, insulin dependent Status: Chronic Problem Text: -diabetic diet -fingerstick checks prior to meals and at bedtime -coverage with insulin per sliding scale protocol (5) Hypertension Status: Chronic Problem Text: -continue on hydralazine, imdur -monitoring per unit protocol -adjust medications and doses for target blood pressure systolic <140 (6) CAD (coronary artery disease) of bypass graft Status: Chronic Problem Text: -control blood pressure -continue statin therapy, aspirin -treatment of underlying heart failure (7) DVT prophylaxis Problem Text: -heparin 5000 units Q8 (8) Postherpetic neuralgia Status: Acute Problem Text: -started on valtrex today. -discontinue trileptal (9) Renal artery stenosis Problem Text: -possible stenosis seen on U/S which was ordered for hard to control blood pressure -O/P follow up with cardiology for further evaluation and management (10) VRE (vancomycin resistant enterococcus) culture positive Problem Text: -patient reports incontinence which he has had for a while -ID has been consulted for VRE findings on culture. -urine culture was VRE negative april 2018 -follow ID recommendation for recommendations for management (11) Advance care planning Problem Text: -code status is DNR -disposistion to home when rehab completed Plan/VTE VTE Prophylaxis Ordered?: Yes VS, I&O, 24H, Fishbone Vital Signs/I&O Vital Signs Date Time Temp Pulse Resp B/P (MAP) Pulse Ox O2 Delivery O2 Flow Rate FiO2 08/04/18 21:23 160/80 08/04/18 21:23 89 08/04/18 20:00 97.3 18 94 08/04/18 06:00 2.0 I&O- Last 24 Hours up to 6 AM 08/04/18 06:00 Intake Total 680 ml Output Total 475 ml Balance 205 ml Laboratory Data 24H LABS Laboratory Tests 2 08/04/18 06:36: Bedside Glucose (Misc Panel) 199H 08/04/18 11:16: Bedside Glucose (Misc Panel) 239H 08/04/18 16:52: Bedside Glucose (Misc Panel) 230H 08/04/18 19:46: Bedside Glucose (Misc Panel) 213H Microbiology Microbiology 07/28/18 Urine Culture - Final, Complete Enterococcus Faecalis (Vre) KIM RAYMOND MD Aug 04, 2018 21:56
[2018-08-05] VITALS (9 sets, daily range): BP systolic 129–190; BP diastolic 59–110
[2018-08-05] MEDS: ACETAMINOPHEN TAB 650MG DOSE (2X325MG) PO PRN (02:04)
[2018-08-05] MEDS ORDERED: ONDANSETRON 4MG/2ML VIAL (J2405) IV PRN (05:45)
[2018-08-05] MEDS: HEPARIN SOD (PORCINE) 5000 UNITS/ML VIAL SC SCH ×3 (05:51→22:07)
--- NOTE | 2018-08-05 05:53 | REPVR ---
EXAM: CT Head Without Contrast EXAM DATE/TIME: 08/05/2018 4:27 AM CLINICAL HISTORY: 68 years old, male; Signs and symptoms; Visual disturbance; Additional info: Unsteadiness, visual disturbance, nausea TECHNIQUE: Imaging protocol: Axial computed tomography images of the head without contrast. Radiation optimization: All CT scans at this facility use at least one of these dose optimization techniques: automated exposure control; mA and/or kV adjustment per patient size (includes targeted exams where dose is matched to clinical indication); or iterative reconstruction. COMPARISON: CT Head without contrast 07/30/2018 9:39 AM FINDINGS: Brain: Moderate hypodensities in the deep white matter which are consistent with chronic small vessel ischemic disease. Diffuse cerebral atrophy consistent with patient's age. No acute mass effect. No acute intracranial hemorrhage. Cortical robin-white matter differentiation is preserved. Ventricles: Ventricles are in proportion to the degree of atrophy. Bones/joints: Unremarkable. No acute fracture. Sinuses: Visualized sinuses are unremarkable. No fluid levels. Mastoid air cells: Visualized mastoid air cells are well aerated. No mastoid effusion. Soft tissues: Unremarkable. Vasculature: There is atherosclerotic calcification of the cerebral arteries. IMPRESSION: 1. No acute findings. 2. Moderate hypodensities in the deep white matter which are consistent with chronic small vessel ischemic disease. Electronically signed by: Elisabet Rain On 08/05/2018 05:53:14 AM
[2018-08-05 06:47] LABS: HEMATOCRIT 35.1 % (42.0-52.0); HEMOGLOBIN 11.6 g/dl (13.5-17.5); MEAN CORPUSCULAR HEMOGLOBIN 31.3 pg (27.0-33.0); MEAN CORPUSCULAR VOLUME 94.6 fl (80.0-96.0); PLATELET COUNT, AUTOMATED 312 10^3/uL (150-450); RED BLOOD COUNT 3.71 10^6/uL (4.30-6.10); WHITE BLOOD COUNT 8.2 10^3/uL (4.0-10.0)
[2018-08-05 07:15] LABS: BLOOD UREA NITROGEN 13 MG/DL (7-18); CALCIUM LEVEL 8.4 MG/DL (8.8-10.2); CARBON DIOXIDE LEVEL 33 MEQ/L (21-32); CHLORIDE LEVEL 100 MEQ/L (98-107); CK-MB VALUE MASS < 1.0 NG/ML (<3.6); CPK CREATINE PHOSPHOKINASE 30 U/L (39-308); CREATININE FOR GFR 1.27 MG/DL (0.70-1.30); GLOMERULAR FILTRATION RATE 59.7 (>42); GLUCOSE, FASTING 237 MG/DL (70-100); MB/CK RELATIVE INDEX 3.33 (< OR =4); POTASSIUM SERUM 4.3 MEQ/L (3.5-5.1); SODIUM LEVEL 140 MEQ/L (136-145); TROPONIN I < 0.02 NG/ML (< 0.10)
[2018-08-05] MEDS: IPRATROPIUM 0.5MG/ALBUTEROL 2.5MG INH SOL UD 3ML (DUONEB)(J7620) NEB SCH ×3 (07:32→20:00)
[2018-08-05] MEDS: CHLORHEXIDINE GLUCONATE 0.12 % 15ML UDC (PERIDEX ORAL RINSE) SSP SCH ×3 (08:02→22:08)
[2018-08-05] MEDS: valACYclovir HCL 500 MG TAB PO SCH ×3 (08:03→22:07)
[2018-08-05] MEDS: guaiFENesin 200 MG TAB PO SCH ×2 (08:03→22:07)
[2018-08-05] MEDS: ASPIRIN 325 MG TAB PO SCH (08:03)
[2018-08-05] MEDS: POTASSIUM CHLORIDE 10 MEQ SR TABLET PO SCH (08:04)
[2018-08-05] MEDS: **hydrALAZINE HCL** 25 MG TAB PO SCH ×4 (08:04→22:06)
[2018-08-05] MEDS: OMEPRAZOLE 20 MG CAP PO SCH (08:04)
[2018-08-05] MEDS: GABAPENTIN 100 MG CAP PO SCH ×2 (08:05→22:03)
[2018-08-05] MEDS: ISOSORBIDE MON. (IMDUR) 30 MG XR TAB PO SCH (08:05)
[2018-08-05] MEDS: FUROSEMIDE 20 MG TAB PO SCH (08:05)
[2018-08-05] MEDS: prednisoLONE ACET 1% OPHTH SUSP 5ML OD SCH ×4 (08:06→22:09)
[2018-08-05] MEDS: amLODIPine 5 MG TAB PO SCH ×2 (08:06→22:06)
[2018-08-05] MEDS: CARVedilol 6.25 MG TAB PO SCH ×2 (08:06→22:05)
[2018-08-05] MEDS: METAMUCIL (PSYLLIUM) PACKET PO SCH ×2 (08:07→22:02)
[2018-08-05] MEDS ORDERED: MECLIZINE 12.5 MG TAB PO ONE (08:15)
[2018-08-05] MEDS ORDERED: cloNIDine 0.1 MG TAB PO ONE (08:15)
[2018-08-05] MEDS ORDERED: MECLIZINE 12.5 MG TAB PO SCH (09:00)
[2018-08-05] MEDS: LEVEMIR (INSULIN DETEMIR) 1 UNITS/0.01ML SC SCH ×2 (09:00→22:09)
[2018-08-05] MEDS: HumaLOG INSULIN (NovoLOG) PER UNIT SC SCH ×4 (09:12→21:00)
[2018-08-05] MEDS ORDERED: LABETALOL HCL 100 MG/20 ML VIAL IV STA (10:18)
--- NOTE | 2018-08-05 16:18 | IPNPDOC ---
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 He is feeling well overall and enjoying therapy. REVIEW OF SYSTEMS: The following is a completed review of systems and has been reviewed. Review of systems otherwise unremarkable. PAIN: Patient self reports no pain EYES: +intermittent right eye blurriness EARS, NOSE, & THROAT:+dysphagia CARDIOVASCULAR: denies chest pain or palpitations PULMONARY: Negative. Denies shortness of breath GASTROINTESTINAL: +diarrhea GENITOURINARY: Negative for dysuria or incontinence MUSCULOSKELETAL: LUE weakness NEUROLOGICAL: LUE weakness, peripheral neuropathy HEMATOLOGICAL: Negative SKIN: bilateral anterior guerin ulcers PSYCHIATRIC: Unremarkable All other review of systems found to be negative. PHYSICAL EXAMINATION: VITAL SIGNS: Please see below. GENERAL: Pleasant and cooperative. No acute distress. HEENT: PERRL. Extraocular movements intact. Clear conjunctiva CARDIOVASCULAR: Regular rate and rhythm. No murmurs, rubs, or gallops LUNGS: Clear to auscultation bilaterally. No wheezes. No rhonchi ABDOMEN: Soft, nontender, nondistended. Positive bowel sounds. Normal active bowel sounds. NEUROLOGICAL: Alert and oriented times three. Cranial nerves II through XII grossly intact. Sensation to light touch diminished in stocking pattern in LE, intact in UE EXTREMITIES: 5\5 strength bilateral upper extremities, mild pronator drift on the left. 5\5 strength right lower extremity. 5/5 strength in left lower extremity. bilateral edema (-) Homans bilat SKIN: hyperpigmentation of caves with scattered dry ulcers bilat anterior shins and dorsum of D2 on the left ASSESSMENT: 68-year-old M with past medical history of CAD s/p CABG, diastolic CHF, stroke who presents status post right pontine stroke complicated by dysphagia and pneumonia. PLAN: 1. 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 Neuro: pmh 2 strokes in 2014 and recent right pontine stroke- c/u ASA 325mg daily and statin therapy- f/u outpatient neurology -episode of AMS with increased dizziness 07/30/18, CT negative for new stroke, repeat MRI also negative -BPs better controlled 3. cardiac: pmh CAD s/p CABG, Aortic valve replacement, poorly controlled HTN and recent ECHO 07/24/18 showing grade 2 diastolic dysfunction- c/u diuretics and BP meds, adjust prn- medicine consulted to assist with management and lowered total daily dosing to 60mg, Chiller Technician improving -HTN improving on hydralazine, clonidine, Imdur, and carvedilol -fluid restrict to 1800cc and Lasix for CHF- medicine following -Renal US positive for renal artery stenosis will set up with cardiology for IR intervention upon discharge -c/u nocturnal 02 3. Resp: s/p recent aspiration pneumonia and currently off antibiotics, will monitor and obtain repeat CXR- encourage incentive spirometry and c/u breathing treatments and guaifenesin -CHlorohexidine mouth wash to protect against aspiration PNA 4. Endo: pmh dm with severe peripheral neuropathy- c/i ISS and adjust prn, will recommend diabetic shoes 5. GI ppx: prilosec, immodium prn for loose stools- c diff negative -will defer GI scope for now for concern for esophageal dysmotility 6. DVT ppx: TEDs and heparin 7. SKin: acewrap bilat LE for edema 8. ID: Admission Ucx + for VRE, asymptomatic, no treatment ordered, ID recs appreciated -patient today reporting symptoms concerning for reoccurrence of right sided facial Zoster with ophthalmicus- called patient's pharmacy and appears he received a 7 day course of Valtrex 500 daily starting 07/05/18 and then received 2 doses while on inpatient side recently- discussed with pharmacy, patient was undertreated, c/u Valtrex 1g TID x 7 days and add steroid eye drop to prevent corneal scarring-discussed with medicine, patient's symptoms improving 9. Dispo: 08/10/18 to home Allergies Coded Allergies: No Known Allergies (Unverified , 07/19/18) Vital Signs Vital Signs Date Time Temp Pulse Resp B/P (MAP) Pulse Ox O2 Delivery O2 Flow Rate FiO2 08/05/18 14:00 97.6 68 19 130/63 (85) 94 08/04/18 06:00 2.0 Laboratory Data CBC/BMP Laboratory Tests 08/05/18 06:31 Red Blood Count 3.71 L, Mean Corpuscular Volume 94.6, Mean Corpuscular Hemoglobin 31.3, Mean Corpuscular Hemoglobin Concent 33.0, Red Cell Distribution Width 13.7, Calcium Level 8.4 L, Total Creatine Kinase 30 L Labs 24H Laboratory Tests 2 08/04/18 16:52: Bedside Glucose (Misc Panel) 230H 08/04/18 19:46: Bedside Glucose (Misc Panel) 213H 08/05/18 04:41: Bedside Glucose (Misc Panel) 187H 08/05/18 06:07: Bedside Glucose (Misc Panel) 234H 08/05/18 06:31: Nucleated Red Blood Cells % (auto) 0.0, Anion Gap 7L, Glomerular Filtration Rate 59.7, Blood Urea Nitrogen 13, Creatinine 1.27, Sodium Level 140, Potassium Level 4.3, Chloride Level 100, Carbon Dioxide Level 33H, Calcium Level 8.4L, Total Creatine Kinase 30L, Creatine Kinase MB < 1.0, Creatine Kinase MB Relative Index 3.33, Troponin I < 0.02 08/05/18 11:46: Bedside Glucose (Misc Panel) 192H Microbiology Microbiology 07/28/18 Urine Culture - Final, Complete Enterococcus Faecalis (Vre) Current Medications Current Medications Current Medications Acetaminophen (Tylenol Tab) 650 mg Q4HP PRN PO MILD PAIN (PS 1-4) Last administered on 08/05/18at 02:04; Start 07/28/18 at 18:45 Albuterol/ Ipratropium (Duoneb (Ipr 0.5mg/Alb 2.5mg)) 3 ml RTID NEB Last administered on 08/04/18at 20:09; Start 07/29/18 at 20:00 Amlodipine Besylate (Norvasc) 5 mg BID PO ; Start 08/05/18 at 21:00 Amlodipine Besylate (Norvasc) 5 mg DAILY PO Last administered on 08/05/18at 08:06; Start 08/01/18 at 09:00; Stop 08/05/18 at 12:18; Status DC Aspirin (Aspirin) 325 mg DAILY PO Last administered on 08/05/18at 08:03; Start 07/29/18 at 09:00 Carvedilol (COReg) 6.25 mg BID PO Last administered on 08/05/18at 08:06; Start 07/30/18 at 12:00 Chlorhexidine Gluconate (Peridex Oral Rinse) 15 ml TID SSP Last administered on 08/05/18 08:02; Start 07/29/18 at 16:00 Clonidine HCl (Catapres) 0.1 mg QHS PO Last administered on 07/31/18 20:58; Start 07/29/18 at 21:00; Stop 08/01/18 at 14:22; Status DC Dextrose (Dextrose 50%) 25 ml ASDIRECTED PRN IV SEE LABEL COMMENTS; Start at 18:45 Furosemide (Lasix) 40 mg BID@,17 PO Last administered on 08/03/18 16:22; Start 07/29/18 at 09:00; Stop 08/03/18 at 18:06; Status DC Furosemide (Lasix) 60 mg DAILY PO Last administered on 08/05/18 08:05; Start 08/04/18 at 09:00 Gabapentin (Neurontin) 100 mg BID PO Last administered on 08/05/18 08:05; Start 08/03/18 at 21:00 Gabapentin (Neurontin) 100 mg QID PO Last administered on 08/03/18 12:01; Start 07/28/18 at 21:00; Stop 08/03/18 at 13:00; Status DC Glucagon (Glucagon) 1 mg ASDIRECTED PRN SC SEE LABEL COMMENTS; Start 07/28/18 at 18:45 Glucose (Glucose) 16 GM ASDIRECTED PRN PO SEE LABEL COMMENTS; Start 07/28/18 at 18:45 Guaifenesin (Robitussin Tab) 400 mg BID PO Last administered on 08/05/18 08:03; Start 07/29/18 at 21:00 Heparin Sodium (Porcine) (Heparin) 5,000 units Q8H SC Last administered on 08/05/18 12:55; Start 07/28/18 at 22:00 Hydralazine HCl (Apresoline) 25 mg Q6HP PRN PO prn for >140 sBP Last administered on 07/29/18 09:13; Start 07/28/18 at 18:45; Stop 07/29/18 at 10:44; Status DC Hydralazine HCl (Apresoline) 25 mg TID PO Last administered on 08/05/18 08:04; Start 08/02/18 at 16:00 Hydralazine HCl (Apresoline) 50 mg Q6HP PRN PO prn for >140 sBP; Start 07/29/18 at 10:45; Stop 07/29/18 at 10:51; Status DC Hydralazine HCl (Apresoline) 50 mg Q6HP PRN PO prn for >140 sBP Last administered on 07/30/18at 10:57; Start 07/29/18 at 17:00; Stop 07/30/18 at 10:59; Status DC Hydralazine HCl (Apresoline) 50 mg TID PO Last administered on 08/02/18at 08:17; Start 07/30/18 at 16:00; Stop 08/02/18 at 10:42; Status DC Insulin Detemir (Levemir Insulin) 18 units BID SC Last administered on 08/04/18at 21:24; Start 07/28/18 at 21:00 Insulin Human Lispro (HumaLOG INSULIN) SEE PROTOCOL TABLE AC SC Last administered on 08/05/18at 12:56; Start 07/29/18 at 07:30 Insulin Human Lispro (HumaLOG INSULIN) SEE PROTOCOL TABLE QHS SC Last administered on 08/03/18at 20:46; Start 07/28/18 at 21:00 Isosorbide Mononitrate (Imdur) 30 mg DAILY PO Last administered on 08/05/18at 08:05; Start 07/31/18 at 09:00 Labetalol HCl (Normodyne, Trandate) 10 mg STAT STAT IV ; Start 08/05/18 at 10:18; Stop 08/05/18 at 10:19; Status Cancel Lisinopril (Prinivil) 20 mg BID PO Last administered on 07/31/18at 10:00; Start 07/29/18 at 21:00; Stop 07/31/18 at 11:53; Status DC Lisinopril (Prinivil) 20 mg DAILY PO Last administered on 07/29/18at 08:10; Start 07/29/18 at 09:00; Stop 07/29/18 at 10:44; Status DC Loperamide HCl (Imodium) 2 mg ASDIRECTED PRN PO DIARRHEA; Start 08/03/18 at 17:30 Meclizine HCl (Antivert) 12.5 mg QHS PO Last administered on 08/02/18at 21:09; Start 07/31/18 at 21:00; Stop 08/03/18 at 17:29; Status DC Meclizine HCl (Antivert) 12.5 mg TID PO Last administered on 07/31/18at 10:00; Start 07/30/18 at 09:00; Stop 07/31/18 at 11:24; Status DC Meclizine HCl (Antivert) 12.5 mg TID PO ; Start 08/05/18 at 09:00; Stop 08/05/18 at 10:08; Status DC Meclizine HCl (Antivert) 12.5 mg TID PO ; Start 08/05/18 at 16:00 Metoprolol Tartrate (Lopressor) 50 mg BID PO Last administered on 08/01/18at 21:35; Start 07/28/18 at 21:00; Stop 08/02/18 at 10:51; Status DC Nitroglycerin (Nitrostat (1/ 150)) 0.4 mg Q5MP PRN SL CHEST PAIN; Start 07/28/18 at 18:45 Omeprazole (PriLOSEC) 20 mg DAILY PO ; Start 07/29/18 at 09:00; Stop 07/29/18 at 09:00; Status DC Omeprazole (PriLOSEC) 20 mg DAILY PO Last administered on 08/05/18at 08:04; Start 07/29/18 at 09:00 Ondansetron HCl (ZOFRAN INJection) 4 mg Q6HP PRN IV NAUSEA OR VOMITING Last administered on 08/05/18at 05:50; Start 08/05/18 at 05:45 Ondansetron HCl (Zofran) 4 mg Q6HP PRN PO NAUSEA Last administered on 07/30/18at 10:06; Start 07/28/18 at 18:45; Stop 08/05/18 at 05:33; Status DC Oxcarbazepine (Trileptal) 150 mg BID PO Last administered on 08/02/18at 08:14; Start 07/31/18 at 21:00; Stop 08/02/18 at 10:44; Status DC Oxcarbazepine (Trileptal) 150 mg DAILY@2000 PO Last administered on 08/02/18at 21:09; Start 08/02/18 at 20:00; Stop 08/03/18 at 18:06; Status DC Oxcarbazepine (Trileptal) 150 mg QAM PO Last administered on 07/31/18 10:04; Start 07/29/18 at 09:00; Stop 07/31/18 at 11:26; Status DC Oxcarbazepine (Trileptal) 300 mg QHS PO Last administered on 07/30/18 21:43; Start 07/28/18 at 21:00; Stop 07/31/18 at 11:26; Status DC Pantoprazole Sodium (Protonix) 40 mg QPM PO ; Start 07/29/18 at 21:00; Stop 07/29/18 at 21:00; Status DC Potassium Chloride (Micro-K Extencaps) 20 meq DAILY PO Last administered on 08/05/18 08:04; Start 07/29/18 at 09:00; Stop 08/05/18 at 12:20; Status DC Pravastatin Sodium (Pravachol) 40 mg QHS PO Last administered on 08/04/18 21:21; Start 07/28/18 at 21:00 Prednisolone Acetate (Predforte 1% Ophth Susp) 2 drop QID OD Last administered on 08/05/18 12:55; Start 08/03/18 at 14:15 Psyllium Hydrophilic Mucilloid (Metamucil) 1 pkt BID PO Last administered on 08/05/18 08:07; Start 08/03/18 at 21:00 Spironolactone (Aldactone) 12.5 mg DAILY PO ; Start 08/06/18 at 09:00 Valacyclovir HCl (Valtrex) 1,000 mg DAILY PO ; Start 08/03/18 at 15:00; Stop 08/03/18 at 15:26; Status DC Valacyclovir HCl (Valtrex) 1,000 mg TID PO Last administered on 08/05/18 08:03; Start 08/03/18 at 16:00; Stop 08/10/18 at 09:01 KOFI REDMOND MD Aug 05, 2018 16:18
--- NOTE | 2018-08-05 16:18 | REP ---
MR BRAIN WITHOUT CONTRAST: HISTORY: Altered mental status. COMPARISON: MR 07/30/[address] 08/05/2018. A small new focus of increased signal intensity on diffusion weighted images is present in the right posterolateral leeanna. This is decreased in signal intensity on ADC images and is consistent with an acute infarction. An area of increased signal intensity on diffusion and T2-weighted images is present in the right anterolateral leeanna. This is isointense on ADC images and is consistent with a subacute infarction. Areas of increased signal intensity on T2-weighted images are present in the left basal ganglia, left thalamus, left leeanna and cerebellum. These represent old lacunar infarctions. Areas of increased signal intensity on T2-weighted images are present in the periventricular and subcortical white matter, leeanna and medulla. This represents small vessel ischemic disease. There is no intraparenchymal hemorrhage, mass or midline shift. The ventricular system and cortical sulci are dilated consistent with moderate volume loss. There is no extracerebral collection. The sinuses are clear. IMPRESSION: 1. There is a new small acute infarction in the right posterolateral leeanna. This is an extension of the previously noted right anterior pontine subacute infarction. 2. Old left basal ganglia, left thalamic, left pontine and cerebellar lacunar infarctions. 3. Small vessel ischemic disease. 4. Moderate volume loss. Electronically Signed by John Ruiz MD 08/05/2018 04:25 P
--- NOTE | 2018-08-05 16:24 | IPNPDOC ---
PM&R Progress Note DATE OF SERVICE: Aug 05, [address] Progress Note Subjective: Patient woke up at 4am with dizziness and vomiting with sBP 190s, CT head performed which was negative, EKG, and cardaic markers also negative. He was given clonidine after which his sBP went down to 160s, he was also given meclizine and his dizziness subsided. He was able to participate in some therapy in the afternoon, stating he was feeling better. REVIEW OF SYSTEMS: The following is a completed review of systems and has been reviewed. Review of systems otherwise unremarkable. PAIN: Patient self reports no pain EYES: +intermittent right eye blurriness EARS, NOSE, & THROAT:+dysphagia CARDIOVASCULAR: denies chest pain or palpitations PULMONARY: Negative. Denies shortness of breath GASTROINTESTINAL: +diarrhea GENITOURINARY: Negative for dysuria or incontinence MUSCULOSKELETAL: LUE weakness NEUROLOGICAL: LUE weakness, peripheral neuropathy HEMATOLOGICAL: Negative SKIN: bilateral anterior guerin ulcers PSYCHIATRIC: Unremarkable All other review of systems found to be negative. PHYSICAL EXAMINATION: VITAL SIGNS: Please see below. GENERAL: Pleasant and cooperative. No acute distress. HEENT: PERRL. Extraocular movements intact. Clear conjunctiva CARDIOVASCULAR: Regular rate and rhythm. No murmurs, rubs, or gallops LUNGS: Clear to auscultation bilaterally. No wheezes. No rhonchi ABDOMEN: Soft, nontender, nondistended. Positive bowel sounds. Normal active bowel sounds. NEUROLOGICAL: Alert and oriented times three. Cranial nerves II through XII grossly intact. Sensation to light touch diminished in stocking pattern in LE, intact in UE EXTREMITIES: 5\5 strength bilateral upper extremities, mild pronator drift on the left. 5\5 strength right lower extremity. 5/5 strength in left lower extremity. bilateral edema (-) Homans bilat SKIN: hyperpigmentation of caves with scattered dry ulcers bilat anterior shins and dorsum of D2 on the left ASSESSMENT: 68-year-old M with past medical history of CAD s/p CABG, diastolic CHF, stroke who presents status post right pontine stroke complicated by dysphagia and pneumonia. PLAN: 1. Rehab: OT, OT, [employer]- c/u honey thickened and puree, may repeat MBS prn, mod- severe dysphagia, esophagram normal from inpatient stay 2. Neuro: pmh 2 strokes in 2015 and recent right pontine stroke- c/u ASA 325mg daily and statin therapy- f/u outpatient neurology -episode of AMS with increased dizziness 07/30/18, CT negative for new stroke, repeat MRI also negative -episode of dizziness and elevated BP this morning, resolved with clonidone and meclizine- repeat CT negative, repeat MRi ordered and results pending -c/u standing meclizine -renal consulted to assist with BP management in setting of renal artery stenosis 3. cardiac: pmh CAD s/p CABG, Aortic valve replacement, poorly controlled HTN and recent ECHO 07/24/18 showing grade 2 diastolic dysfunction- c/u diuretics and BP meds, adjust prn- medicine consulted to assist with management and lowered total daily dosing to 60mg, Rolling [employer] improving -HTN improving on hydralazine, clonidine, Imdur, and carvedilol -fluid restrict to 1800cc and Lasix for CHF- medicine following -Renal US positive for renal artery stenosis will set up with cardiology for IR intervention upon discharge or defer to renal recs who were consulted today assist with BP management in setting of renal artery stenosis -c/u nocturnal 02 3. Resp: s/p recent aspiration pneumonia and currently off antibiotics, will monitor and obtain repeat CXR- encourage incentive spirometry and c/u breathing treatments and guaifenesin -CHlorohexidine mouth wash to protect against aspiration PNA 4. Endo: pmh dm with severe peripheral neuropathy- c/i ISS and adjust prn, will recommend diabetic shoes 5. GI ppx: prilosec, immodium prn for loose stools- c diff negative -will defer GI scope for now for concern for esophageal dysmotility 6. DVT ppx: TEDs and heparin 7. SKin: acewrap bilat LE for edema 8. ID: Admission Ucx + for VRE, asymptomatic, no treatment ordered, ID recs appreciated - Facial Zoster- incomplete treatment, c/u Valtrex 1g TID x 7 days and steroid eye drop to prevent corneal scarring-discussed with medicine, patient's symptoms improving 9. Dispo: 08/10/18 to home, will likely push off until 72 hours with good BP management Allergies Coded Allergies: No Known Allergies (Unverified , 07/19/18) Vital Signs Vital Signs Date Time Temp Pulse Resp B/P (MAP) Pulse Ox O2 Delivery O2 Flow Rate FiO2 08/05/18 14:00 97.6 68 19 130/63 (85) 94 08/04/18 06:00 2.0 Laboratory Data CBC/BMP Laboratory Tests 08/05/18 06:31 Red Blood Count 3.71 L, Mean Corpuscular Volume 94.6, Mean Corpuscular Hemoglobin 31.3, Mean Corpuscular Hemoglobin Concent 33.0, Red Cell Distribution Width 13.7, Calcium Level 8.4 L, Total Creatine Kinase 30 L Labs 24H Laboratory Tests 2 08/04/18 16:52: Bedside Glucose (Misc Panel) 230H 08/04/18 19:46: Bedside Glucose (Misc Panel) 213H 08/05/18 04:41: Bedside Glucose (Misc Panel) 187H 08/05/18 06:07: Bedside Glucose (Misc Panel) 234H 08/05/18 06:31: Nucleated Red Blood Cells % (auto) 0.0, Anion Gap 7L, Glomerular Filtration Rate 59.7, Blood Urea Nitrogen 13, Creatinine 1.27, Sodium Level 140, Potassium Level 4.3, Chloride Level 100, Carbon Dioxide Level 33H, Calcium Level 8.4L, Total Creatine Kinase 30L, Creatine Kinase MB < 1.0, Creatine Kinase MB Relative Index 3.33, Troponin I < 0.02 08/05/18 11:46: Bedside Glucose (Misc Panel) 192H Microbiology Microbiology 07/28/18 Urine Culture - Final, Complete Enterococcus Faecalis (Vre) Current Medications Current Medications Current Medications Acetaminophen (Tylenol Tab) 650 mg Q4HP PRN PO MILD PAIN (PS 1-4) Last admi nistered on 08/05/18at 02:04; Start 07/28/18 at 18:45 Albuterol/ Ipratropium (Duoneb (Ipr 0.5mg/Alb 2.5mg)) 3 ml RTID NEB Last administered on 08/04/18at 20:09; Start 07/29/18 at 20:00 Amlodipine Besylate (Norvasc) 5 mg BID PO ; Start 08/05/18 at 21:00 Amlodipine Besylate (Norvasc) 5 mg DAILY PO Last administered on 08/05/18at 08:06; Start 08/01/18 at 09:00; Stop 08/05/18 at 12:18; Status DC Aspirin (Aspirin) 325 mg DAILY PO Last administered on 08/05/18 08:03; Start 07/29/18 at 09:00 Carvedilol (COReg) 6.25 mg BID PO Last administered on 08/05/18 08:06; Start 07/30/18 at 12:00 Chlorhexidine Gluconate (Peridex Oral Rinse) 15 ml TID SSP Last administered on 08/05/18 08:02; Start 07/29/18 at 16:00 Clonidine HCl (Catapres) 0.1 mg QHS PO Last administered on 07/31/18 20:58; Start 07/29/18 at 21:00; Stop 08/01/18 at 14:22; Status DC Dextrose (Dextrose 50%) 25 ml ASDIRECTED PRN IV SEE LABEL COMMENTS; Start 07/28/18 at 18:45 Furosemide (Lasix) 40 mg BID@,17 PO Last administered on 08/03/18 16:22; Start 07/29/18 at 09:00; Stop 08/03/18 at 18:06; Status DC Furosemide (Lasix) 60 mg DAILY PO Last administered on 08/05/18 08:05; Start 08/04/18 at 09:00 Gabapentin (Neurontin) 100 mg BID PO Last administered on 08/05/18 08:05; Start 08/03/18 at 21:00 Gabapentin (Neurontin) 100 mg QID PO Last administered on 08/03/18 12:01; Start 07/28/18 at 21:00; Stop 08/03/18 at 13:00; Status DC Glucagon (Glucagon) 1 mg ASDIRECTED PRN SC SEE LABEL COMMENTS; Start 07/28/18 at 18:45 Glucose (Glucose) 16 GM ASDIRECTED PRN PO SEE LABEL COMMENTS; Start 07/28/18 at 18:45 Guaifenesin (Robitussin Tab) 400 mg BID PO Last administered on 08/05/18 08:03; Start 07/29/18 at 21:00 Heparin Sodium (Porcine) (Heparin) 5,000 units Q8H SC Last administered on 08/05/18 12:55; Start 07/28/18 at 22:00 Hydralazine HCl (Apresoline) 25 mg Q6HP PRN PO prn for >140 sBP Last administered on 5/30/19at 09:13; Start 07/28/18 at 18:45; Stop 07/29/18 at 10:44; Status DC Hydralazine HCl (Apresoline) 25 mg TID PO Last administered on 08/05/18at 08:04; Start 08/02/18 at 16:00 Hydralazine HCl (Apresoline) 50 mg Q6HP PRN PO prn for >140 sBP; Start 07/29/18 at 10:45; Stop 07/29/18 at 10:51; Status DC Hydralazine HCl (Apresoline) 50 mg Q6HP PRN PO prn for >140 sBP Last administered on 07/30/18at 10:57; Start 07/29/18 at 17:00; Stop 07/30/18 at 10:59; Status DC Hydralazine HCl (Apresoline) 50 mg TID PO Last administered on 08/02/18at 08:17; Start 07/30/18 at 16:00; Stop 08/02/18 at 10:42; Status DC Insulin Detemir (Levemir Insulin) 18 units BID SC Last administered on 08/04/18at 21:24; Start 07/28/18 at 21:00 Insulin Human Lispro (HumaLOG INSULIN) SEE PROTOCOL TABLE AC SC Last administered on 08/05/18at 12:56; Start 07/29/18 at 07:30 Insulin Human Lispro (HumaLOG INSULIN) SEE PROTOCOL TABLE QHS SC Last administ ered on 08/03/18at 20:46; Start 07/28/18 at 21:00 Isosorbide Mononitrate (Imdur) 30 mg DAILY PO Last administered on 08/05/18at 08:05; Start 07/31/18 at 09:00 Labetalol HCl (Normodyne, Trandate) 10 mg STAT STAT IV ; Start 08/05/18 at 10:18; Stop 08/05/18 at 10:19; Status Cancel Lisinopril (Prinivil) 20 mg BID PO Last administered on 07/31/18at 10:00; Start 07/29/18 at 21:00; Stop 07/31/18 at 11:53; Status DC Lisinopril (Prinivil) 20 mg DAILY PO Last administered on 07/29/18at 08:10; Start 07/29/18 at 09:00; Stop 07/29/18 at 10:44; Status DC Loperamide HCl (Imodium) 2 mg ASDIRECTED PRN PO DIARRHEA; Start 08/03/18 at 17:30 Meclizine HCl (Antivert) 12.5 mg QHS PO Last administered on 08/02/18at 21:09; Start 07/31/18 at 21:00; Stop 08/03/18 at 17:29; Status DC Meclizine HCl (Antivert) 12.5 mg TID PO Last administered on 07/31/18at 10:00; Start 07/30/18 at 09:00; Stop 07/31/18 at 11:24; Status DC Meclizine HCl (Antivert) 12.5 mg TID PO ; Start 08/05/18 at 09:00; Stop 08/05/18 at 10:08; Status DC Meclizine HCl (Antivert) 12.5 mg TID PO ; Start 08/05/18 at 16:00 Metoprolol Tartrate (Lopressor) 50 mg BID PO Last administered on 08/01/18at 21:35; Start 07/28/18 at 21:00; Stop 08/02/18 at 10:51; Status DC Nitroglycerin (Nitrostat (1/ 150)) 0.4 mg Q5MP PRN SL CHEST PAIN; Start 07/28/18 at 18:45 Omeprazole (PriLOSEC) 20 mg DAILY PO ; Start 07/29/18 at 09:00; Stop 07/29/18 at 09:00; Status DC Omeprazole (PriLOSEC) 20 mg DAILY PO Last administered on 08/05/18at 08:04; Start 07/29/18 at 09:00 Ondansetron HCl (ZOFRAN INJection) 4 mg Q6HP PRN IV NAUSEA OR VOMITING Last administered on 08/05/18at 05:50; Start 08/05/18 at 05:45 Ondansetron HCl (Zofran) 4 mg Q6HP PRN PO NAUSEA Last administered on 07/30/18at 10:06; Start 07/28/18 at 18:45; Stop 08/05/18 at 05:33; Status DC Oxcarbazepine (Trileptal) 150 mg BID PO Last administered on 08/02/18 08:14; Start 07/31/18 at 21:00; Stop 08/02/18 at 10:44; Status DC Oxcarbazepine (Trileptal) 150 mg DAILY@2000 PO Last administered on 08/02/18 21:09; Start 08/02/18 at 20:00; Stop 08/03/18 at 18:06; Status DC Oxcarbazepine (Trileptal) 150 mg QAM PO Last administered on 07/31/18at 10:04; Start 07/29/18 at 09:00; Stop 07/31/18 at 11:26; Status DC Oxcarbazepine (Trileptal) 300 mg QHS PO Last administered on 07/30/18 21:43; Start 07/28/18 at 21:00; Stop 07/31/18 at 11:26; Status DC Pantoprazole Sodium (Protonix) 40 mg QPM PO ; Start 07/29/18 at 21:00; Stop 07/29/18 at 21:00; Status DC Potassium Chloride (Micro-K Extencaps) 20 meq DAILY PO Last administered on 08/05/18 08:04; Start 07/29/18 at 09:00; Stop 08/05/18 at 12:20; Status DC Pravastatin Sodium (Pravachol) 40 mg QHS PO Last administered on 08/04/18 21:21; Start 07/28/18 at 21:00 Prednisolone Acetate (Predforte 1% Ophth Susp) 2 drop QID OD Last administered on 08/05/18 12:55; Start 08/03/18 at 14:15 Psyllium Hydrophilic Mucilloid (Metamucil) 1 pkt BID PO Last administered on 08/05/18 08:07; Start 08/03/18 at 21:00 Spironolactone (Aldactone) 12.5 mg DAILY PO ; Start 08/06/18 at 09:00 Valacyclovir HCl (Valtrex) 1,000 mg DAILY PO ; Start 08/03/18 at 15:00; Stop 08/03/18 at 15:26; Status DC Valacyclovir HCl (Valtrex) 1,000 mg TID PO Last administered on 08/05/18 08:03; Start 08/03/18 at 16:00; Stop 08/10/18 at 09:01 KOFI REDMOND MD Aug 05, 2018 16:24
[2018-08-05] MEDS: MECLIZINE 12.5 MG TAB PO SCH ×2 (16:45→22:10)
--- NOTE | 2018-08-05 17:07 | ECGEPIP ---
[facility] Test Date: 2018-08-05 Pat Name: MARIE FLYNN Department: Room: Z6657-57 Gender: Male Permit Specialist: GARY : [id number] Requested By: LEE DELCID Order Number: [id number] Reading MD: Jimy Villa Measurements Intervals [place] Rate: 82 P: 59 IN: 300 QRS: QRSD: 100 T: 110 QT: 389 QTc: 457 Interpretive Statements Normal sinus rhythm LA conduction disturbance. Marked first-degree AV block. Left axis deviation with slow precordial R-wave progression, prominent voltage and aVL, and LV strain pattern in keeping with left ventricular hypertrophy Could not rule out prior septal injury. No change from 07/24/18. Electronically Signed on 08-05-2018 17:06:42 EDT by Jimy Villa
[2018-08-05] MEDS: PRAVASTATIN 20 MG TAB PO SCH (22:03)
[2018-08-06] VITALS (8 sets, daily range): BP systolic 97–158; BP diastolic 58–90
--- NOTE | 2018-08-06 00:28 | CR ---
DATE OF PROCEDURE: 08/05/2018 REQUESTING PHYSICIAN: Dr. Luz Mckeon REASON FOR CONSULTATION: Hypertension control in this patient with renovascular disease and a recent stroke. HISTORY OF THE PRESENT ILLNESS: Gilberto Rosario is known to me from a prior hospitalization this spring. He is a 68-year-old male with a past medical history of coronary artery disease, status post coronary artery bypass graft (CABG), hypertension, CVA in 2014 with residual right-sided weakness and a degree of dysphagia, dyslipidemia, type 2 diabetes with neuropathy, prostate cancer - status post radiation, aortic valve replacement, not on anticoagulation, history of chronic kidney disease stage III, and a history of recurrent acute kidney injuries and other comorbid conditions mentioned below. The patient has been admitted to the rehabilitation unit since July 28, 2018 for right pontine infarction that was acute in late June of 2018, which was complicated by aspiration and pneumonia. In the rehabilitation unit for the past week, his blood pressures have been difficult to control; systolic has been 160s on average, though as high as 190s. He had a renal ultrasound, which demonstrated bilateral parvus tardus wave forms, concerning for bilateral renal artery stenosis, and nephrology evaluation was requested for help with the management of his hypertension. The patient is seen and examined this morning at the bedside in the rehabilitation unit. He is discouraged. He reports he has been having some trouble participating in therapy due to some nausea and intermittent dizziness. At present, he has neither issue. PAST MEDICAL AND PAST SURGICAL HISTORY: Chronic kidney disease stage III coronary artery disease status post side. 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 ALLERGIES: No known drug allergies. HOME MEDICATIONS: Reviewed and include Tylenol, aspirin, vitamin D3, clonidine, fluoxetine, furosemide, gabapentin, hydralazine, insulin, lisinopril, metoprolol, omeprazole, oxcarbazepine, potassium and pravastatin. FAMILY HISTORY: Mother with colon cancer. 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 Denies alcohol, drugs or smoking. Reports he lives alone. Has had 4 or 5 hospitalizations within the past 6 months. REVIEW OF SYSTEMS: Constitutional: He denies fevers or chills. Eyes: He denies visual tearing or new changes in vision. Ear, nose and throat (ENT): He reports dysphagia. He denies tinnitus. Cardiac: He has a history of diastolic congestive heart failure, coronary artery disease, bypass. Respiratory: He denies shortness of breath or cough. Gastrointestinal: He reports some dysphagia. He denies vomiting or diarrhea. He reports some nausea. Genitourinary: He denies dysuria or hematuria. Endocrine: He reports a history of diabetes and a history of hypokalemia. Musculoskeletal: He reports generalized weakness but more so on the right. He denies any new myalgias or arthralgias. Hematologic: He reports anemia. He denies long-term anticoagulant use. Neurologic: He reports multiple strokes and right-sided weakness. Remainder of review of systems is negative or as per history of the present illness. Vital signs: Temperature 97.6, pulse 68, respiratory rate 19, blood pressure 130/63, saturating 94% on room air. Intake yesterday was not fully recorded, neither with output. Weight on the bed scale today is not recorded. General: The patient is seen lying in bed, awake and alert, conversational, recognizes me from previous admission. Extraocular muscles are intact. Tongue is moist. Neck is supple. Jugular veins are not elevated. Cardiac: S1, S2, regular rate and rhythm. Trace edema in the lower extremities. Lungs are clear to auscultation bilaterally. No crackle, rale or wheeze. Abdomen is soft, obese and nontender. Extremities have trace edema and venous stasis changes. Neurologic: There is some weakness appreciable, mostly in the right upper extremity. Skin: Normal turgor and temperature. LABORATORY DATA: White count 8.2, hemoglobin 11.6, platelets 312, sodium 140, potassium 4.3, bicarbonate 33, BUN 13, creatinine 1.2. IMAGING STUDIES: Renal ultrasound July 30, 2018: Bilateral parvus et tardus wave form suggestive of renal artery stenosis. INPATIENT MEDICATIONS: I increased his amlodipine to 5 mg by mouth twice a day and started him on spironolactone 12.5 mg by mouth daily. Remainder of medications showed Tylenol as needed, aspirin 325 mg by mouth daily, carvedilol 6.25 mg by mouth twice a day, Lasix 60 mg by mouth daily, gabapentin 100 mg by mouth twice a day, heparin 5000 units subcu every 8 hours, hydralazine 25 mg by mouth three times a day, insulin, isosorbide 30 mg by mouth daily, meclizine 12.5 mg by mouth three times a day, omeprazole 20 mg by mouth daily, Zofran as needed. I discontinued his potassium. He is also on pravastatin 40 mg by mouth nightly, and Valtrex 1000 mg by mouth three times a day. PROBLEMS: 1. Renovascular hypertension. Renal ultrasound is noted. Blood pressures have been uncontrolled the past several days; systolic is averaging 160 and overall ranging from 140s to 190s. He is presently on amlodipine 5 mg p.o. daily and carvedilol 6.25 mg by mouth twice a day, Lasix 60 mg by mouth daily, hydralazine 25 mg by mouth three times a day, isosorbide 30 mg by mouth daily. I have increased the Norvasc to 5 mg by mouth twice a day, and I added spirolactone 12.5 mg by mouth daily. If his blood pressures do not improve with medical management, then we will get MRA of the renal arteries to better evaluate the renal artery stenosis and consider stenting if needed. I do expect that his blood pressures should improve with some manipulation of his medications. 2. Diastolic congestive heart failure, mildly hypervolemic on exam. He continues on furosemide 60 mg by mouth daily, and in view of hypertension and congestive heart failure, I am adding spironolactone 12.5 mg once daily, and his potassium supplement is being discontinued now that he will be on a potassium-sparing diuretic. 3. Chronic kidney disease stage III. Renal function is at the patient's usual baseline. He does have a history of recurrent and easily provoked acute kidney injury and that may be because of renovascular disease. 4. Right pontine stroke. Rehab as per physical medicine and rehabilitation (PM and R). The patient seems to have a history of multiple strokes in the past. He also has a history of aortic valve replacement. I question if there is any need for transesophageal echocardiogram given his valve replacement and recurrent strokes. Thank you for involving me in the care of Mr. Gilberto Rosario. I will be happy to follow him along with you.
--- NOTE | 2018-08-06 03:08 | IPNPDOC ---
Text Note Date of Service The patient was seen on 08/05/18. NOTE Chief Complaint/HPI Pt was seen and examined at bedside. Informed by nurse that pt had acute onset of change in MS with no new neurologic deficit. Pt underwent brain MRI in the morning which revealed small area of acute ischemia extending from previous pontine stroke. Subjective: General: Reports: Normal Appetite; Denies: Chills, Night Sweats, Fatigue, Malaise Constitutional: Denies: Chills, Fever, Night Sweats Eyes: Denies: Pain, Vision change ENT: Denies: Head Aches, Ear Pain, Dysphagia Skin: Denies: Rash, Lesions, Breakdown Pulmonary: Denies: Dyspnea, Cough Cardiovascular: Denies: Chest Pain, Palpitations, Orthopnea, Paroxysmal Noc. Dyspnea, Lt Headedness Gastrointestinal: Denies: Nausea, Vomiting, Abdominal Pain, Diarrhea, Constipation Genitourinary: Denies: Dysuria, Frequency, Incontinence, Retention Hematologic: Denies: Bruising, Bleeding Excessively Physical Examination General Exam: Positive: Cooperative, No Acute Distress Eye Exam: Positive: PERRLA, Conjunctiva & lids normal, EOMI ENT Exam: Positive: Atraumatic, Mucous membr. moist/pink, Pharynx Normal Neck Exam: Positive: Supple; Negative: JVD, thyromegaly Chest Exam: Positive: Clear to auscultation, Normal air movement Heart Exam: Positive: Rate Normal Abdomen Exam: Positive: Normal bowel sounds, Soft; Negative: Tenderness Extremity Exam: Positive: Edema (2+ to BLE with venous stasis changes) Skin Exam: Positive: Other skin issue (venous stasis changes) Neuro Exam: Positive: Normal Tone; Negative: Normal Speech (slow speech), Strength at 5/5 X4 ext (right upper extremity weakness) Psych Exam: Positive: Mental status NL (sleepy) Problems (1) CVA (cerebral vascular accident) Problem Text: -ischemic type to right Kayleen with left extremity weakness New extension in small area adjacent to previous stroke (2) Diastolic CHF, acute on chronic Problem Text: -Reduce Lasix to 60 mg daily -Continue strict input output and other guideline directed medical management of heart failure (3) GERD (gastroesophageal reflux disease) Problem Text: -continue aspiration precautions -continue PPI (4) Diabetes mellitus type 2, insulin dependent Status: Chronic Problem Text: -diabetic diet -fingerstick checks prior to meals and at bedtime -coverage with insulin per sliding scale protocol (5) Hypertension Status: Chronic Problem Text: -continue on hydralazine, imdur -monitoring per unit protocol -adjust medications and doses for target blood pressure systolic <140 (6) CAD (coronary artery disease) of bypass graft Status: Chronic Problem Text: -control blood pressure -continue statin therapy, aspirin -treatment of underlying heart failure (7) DVT prophylaxis Problem Text: -heparin 5000 units Q8 (8) Postherpetic neuralgia Status: Acute Problem Text: -started on valtrex today. -discontinue trileptal (9) Renal artery stenosis Problem Text: -possible stenosis seen on U/S which was ordered for hard to control blood pressure -O/P follow up with cardiology for further evaluation and management (10) VRE (vancomycin resistant enterococcus) culture positive Problem Text: -patient reports incontinence which he has had for a while -ID has been consulted for VRE findings on culture. -urine culture was VRE negative april 2018 -follow ID recommendation for recommendations for management (11) Advance care planning Problem Text: -code status is DNR -disposistion to home when rehab completed Plan/VTE VTE Prophylaxis Ordered?: Yes Vital Signs Date Time Temp Pulse Resp B/P (MAP) Pulse Ox O2 Delivery O2 Flow Rate FiO2 08/06/18 02:00 97.5 82 20 142/70 (94) 92 08/05/18 22:06 77 160/75 08/05/18 22:05 78 160/75 08/05/18 22:00 98.0 77 18 160/75 (103) 95 08/05/18 18:00 96.9 77 18 129/59 (82) 94 08/05/18 16:00 129/59 08/05/18 14:00 97.6 68 19 130/63 (85) 94 08/05/18 11:31 88 160/90 (113) 08/05/18 10:00 80 160/80 (106) 08/05/18 09:13 180/96 08/05/18 09:00 94 180/96 (124) 08/05/18 08:06 94 190/86 08/05/18 08:06 94 190/86 08/05/18 08:05 190/86 08/05/18 08:04 190/86 08/05/18 07:43 190/86 (120) 08/05/18 05:20 97.0 94 20 182/110 (134) 93 08/05/18 04:00 98.1 85 18 180/80 (113) 95 Intake & Output 08/06/18 06:00 Intake Total 200 ml Output Total 695 ml Balance -495 ml Laboratory Tests 08/05/18 04:41: Bedside Glucose (Misc Panel) 187H 08/05/18 06:07: Bedside Glucose (Misc Panel) 234H 08/05/18 06:31: White Blood Count 8.2, Red Blood Count 3.71L, Hemoglobin 11.6L, Hematocrit 35.1L, Mean Corpuscular Volume 94.6, Mean Corpuscular Hemoglobin 31.3, Mean Corpuscular Hemoglobin Concent 33.0, Red Cell Distribution Width 13.7, Platelet Count 312, Nucleated Red Blood Cells % (auto) 0.0, Blood Urea Nitrogen 13, Creatinine 1.27, Sodium Level 140, Potassium Level 4.3, Chloride Level 100, Carbon Dioxide Level 33H, Calcium Level 8.4L, Total Creatine Kinase 30L, Anion Gap 7L, Glomerular Filtration Rate 59.7, Fasting Glucose 237H, Creatine Kinase MB < 1.0, Creatine Kinase MB Relative Index 3.33, Troponin I < 0.02 08/05/18 11:46: Bedside Glucose (Misc Panel) 192H 08/05/18 17:24: Bedside Glucose (Misc Panel) 190H 08/05/18 20:15: Bedside Glucose (Misc Panel) 209H Microbiology 07/28/18 Urine Culture - Final, Complete Enterococcus Faecalis (Vre) Current Medications Medications (Trade) Dose Ordered Sig/Mike Route PRN Reason Start Time Stop Time Status Last Admin Dose Admin Acetaminophen (Tylenol Tab) 650 mg Q4HP PRN PO MILD PAIN (PS 1-4) 07/28/18 18:45 08/05/18 02:04 650 MG Albuterol/ Ipratropium (Duoneb (Ipr 0.5mg/Alb 2.5mg)) 3 ml RTID NEB 07/29/18 20:00 08/04/18 20:09 3 ML Amlodipine Besylate (Norvasc) 5 mg BID PO 08/05/18 21:00 08/05/18 22:06 5 MG Carvedilol (COReg) 6.25 mg BID PO 07/30/18 12:00 08/05/18 22:05 6.25 MG Chlorhexidine Gluconate (Peridex Oral Rinse) 15 ml TID SSP 07/29/18 16:00 08/05/18 22:08 15 ML Furosemide (Lasix) 60 mg DAILY PO 08/04/18 09:00 08/05/18 08:05 60 MG Gabapentin (Neurontin) 100 mg BID PO 08/03/18 21:00 08/05/18 22:03 100 MG Guaifenesin (Robitussin Tab) 400 mg BID PO 07/29/18 21:00 08/05/18 22:07 400 MG Heparin Sodium (Porcine) (Heparin) 5,000 units Q8H SC 07/28/18 22:00 08/05/18 22:07 5,000 UNITS Hydralazine HCl (Apresoline) 25 mg TID PO 08/02/18 16:00 08/05/18 22:06 25 MG Insulin Detemir (Levemir Insulin) 18 units BID SC 07/28/18 21:00 08/05/18 22:09 18 UNITS Insulin Human Lispro (HumaLOG INSULIN) SEE PROTOCOL TABLE QHS SC 07/28/18 21:00 08/03/18 20:46 2 UNITS Isosorbide Mononitrate (Imdur) 30 mg DAILY PO 07/31/18 09:00 08/05/18 08:05 30 MG Meclizine HCl (Antivert) 12.5 mg TID PO 08/05/18 16:00 08/05/18 22:10 12.5 MG Omeprazole (PriLOSEC) 20 mg DAILY PO 07/29/18 09:00 08/05/18 08:04 20 MG Ondansetron HCl (ZOFRAN INJection) 4 mg Q6HP PRN IV NAUSEA OR VOMITING 08/05/18 05:45 08/05/18 05:50 4 MG Pravastatin Sodium (Pravachol) 40 mg QHS PO 07/28/18 21:00 08/05/18 22:03 40 MG Prednisolone Acetate (Predforte 1% Ophth Susp) 2 drop QID OD 08/03/18 14:15 08/05/18 22:09 2 DROP Psyllium Hydrophilic Mucilloid (Metamucil) 1 pkt BID PO 08/03/18 21:00 08/05/18 22:02 1 PKT Valacyclovir HCl (Valtrex) 1,000 mg TID PO 08/03/18 16:00 08/10/18 09:01 08/05/18 22:07 1,000 MG VS,Fishbone, I+O VS, Fishbone, I+O Laboratory Tests 08/05/18 06:31 Red Blood Count 3.71 L, Mean Corpuscular Volume 94.6, Mean Corpuscular Hemoglobin 31.3, Mean Corpuscular Hemoglobin Concent 33.0, Red Cell Distribution Width 13.7, Calcium Level 8.4 L, Total Creatine Kinase 30 L Vital Signs Date Time Temp Pulse Resp B/P (MAP) Pulse Ox O2 Delivery O2 Flow Rate FiO2 08/06/18 02:00 97.5 82 20 142/70 (94) 92 08/04/18 06:00 2.0 I&O- Last 24 Hours up to 6 AM 08/06/18 06:00 Intake Total 200 ml Output Total 695 ml Balance -495 ml KIM RAYMOND MD Aug 06, 2018 03:08
[2018-08-06] MEDS: HEPARIN SOD (PORCINE) 5000 UNITS/ML VIAL SC SCH ×3 (05:44→20:53)
[2018-08-06] MEDS: IPRATROPIUM 0.5MG/ALBUTEROL 2.5MG INH SOL UD 3ML (DUONEB)(J7620) NEB SCH ×3 (06:05→18:20)
[2018-08-06 07:03] LABS: BASO # 0.1 10^3/uL (0.0-0.2); BASO % 0.7 % (0.0-1.0); EOS # 0.6 10^3/uL (0.0-0.50); HEMATOCRIT 32.6 % (42.0-52.0); HEMOGLOBIN 10.6 g/dl (13.5-17.5); LYMPH # 0.8 10^3/uL (1.5-4.5); LYMPH % 10.5 % (24.0-44.0); MEAN CORPUSCULAR HEMOGLOBIN 30.3 pg (27.0-33.0); MEAN CORPUSCULAR HGB CONC 32.5 g/dl (32.0-36.5); MEAN CORPUSCULAR VOLUME 93.1 fl (80.0-96.0); MONO # 0.6 10^3/uL (0.0-0.8); NEUTROPHILS # 5.5 10^3/uL (1.8-7.7); NEUTROPHILS % 72.1 % (36.0-66.0); PLATELET COUNT, AUTOMATED 333 10^3/uL (150-450); WHITE BLOOD COUNT 7.6 10^3/uL (4.0-10.0)
[2018-08-06 07:28] LABS: CALCIUM LEVEL 8.6 MG/DL (8.8-10.2); CREATININE FOR GFR 1.48 MG/DL (0.70-1.30); POTASSIUM SERUM 4.4 MEQ/L (3.5-5.1)
[2018-08-06] MEDS: OMEPRAZOLE 20 MG CAP PO SCH (07:43)
[2018-08-06] MEDS: MECLIZINE 12.5 MG TAB PO SCH ×3 (07:43→20:52)
[2018-08-06] MEDS: GABAPENTIN 100 MG CAP PO SCH ×2 (07:43→20:52)
[2018-08-06] MEDS: ISOSORBIDE MON. (IMDUR) 30 MG XR TAB PO SCH (07:44)
[2018-08-06] MEDS: CLOPIDOGREL 75 MG TAB PO SCH (07:44)
[2018-08-06] MEDS: FUROSEMIDE 20 MG TAB PO SCH (07:44)
[2018-08-06] MEDS: valACYclovir HCL 500 MG TAB PO SCH (07:44)
[2018-08-06] MEDS: amLODIPine 5 MG TAB PO SCH (07:44)
[2018-08-06] MEDS: CARVedilol 6.25 MG TAB PO SCH ×2 (07:44→20:54)
[2018-08-06] MEDS: METAMUCIL (PSYLLIUM) PACKET PO SCH ×2 (07:45→20:54)
[2018-08-06] MEDS: CHLORHEXIDINE GLUCONATE 0.12 % 15ML UDC (PERIDEX ORAL RINSE) SSP SCH ×3 (07:45→20:52)
[2018-08-06] MEDS: guaiFENesin 200 MG TAB PO SCH ×2 (07:45→20:52)
[2018-08-06] MEDS: LEVEMIR (INSULIN DETEMIR) 1 UNITS/0.01ML SC SCH ×2 (07:45→20:53)
[2018-08-06] MEDS: prednisoLONE ACET 1% OPHTH SUSP 5ML OD SCH (07:46)
[2018-08-06] MEDS: HumaLOG INSULIN (NovoLOG) PER UNIT SC SCH ×4 (07:46→20:37)
[2018-08-06] MEDS: **hydrALAZINE HCL** 25 MG TAB PO SCH ×3 (07:46→20:54)
[2018-08-06] MEDS ORDERED: SPIRONOLACTONE 12.5MG PER 1/2 TABLET PO SCH (09:00)
--- NOTE | 2018-08-06 09:00 | IPNPDOC ---
PM&R Progress Note DATE OF SERVICE: Aug 06, 2018 Therapeutic Recreation Specialist Progress Note Subjective: Patient reports he feels much better tpday and his dizziness has improved. REVIEW OF SYSTEMS: The following is a completed review of systems and has been reviewed. Review of systems otherwise unremarkable. PAIN: Patient self reports no pain EYES: +intermittent right eye blurriness EARS, NOSE, & THROAT:+dysphagia CARDIOVASCULAR: denies chest pain or palpitations PULMONARY: Negative. Denies shortness of breath GASTROINTESTINAL: +diarrhea GENITOURINARY: Negative for dysuria or incontinence MUSCULOSKELETAL: LUE weakness NEUROLOGICAL: LUE weakness, peripheral neuropathy HEMATOLOGICAL: Negative SKIN: bilateral anterior guerin ulcers PSYCHIATRIC: Unremarkable All other review of systems found to be negative. PHYSICAL EXAMINATION: VITAL SIGNS: Please see below. GENERAL: Pleasant and cooperative. No acute distress. HEENT: PERRL. Extraocular movements intact. Clear conjunctiva CARDIOVASCULAR: Regular rate and rhythm. No murmurs, rubs, or gallops LUNGS: Clear to auscultation bilaterally. No wheezes. No rhonchi ABDOMEN: Soft, nontender, nondistended. Positive bowel sounds. Normal active bowel sounds. NEUROLOGICAL: Alert and oriented times three. Cranial nerves II through XII grossly intact. Sensation to light touch diminished in stocking pattern in LE, intact in UE EXTREMITIES: 5\\5 strength bilateral upper extremities, mild pronator drift on the left. 5\\5 strength right lower extremity. 5/5 strength in left lower extremity. bilateral edema (-) Homans bilat SKIN: hyperpigmentation of caves with scattered dry ulcers bilat anterior shins and dorsum of D2 on the left ASSESSMENT: 68-year-old M with past medical history of CAD s/p CABG, diastolic CHF, stroke who presents status post right pontine stroke complicated by dysphagia and pneumonia. PLAN: 1. 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 Neuro: pmh 2 strokes in 2014 and recent right pontine stroke- c/u ASA 325mg daily and statin therapy- f/u outpatient neurology -episode of AMS with increased dizziness 07/30/18, CT negative for new stroke, repeat MRI also negative -episode of dizziness and elevated BP this morning, resolved with clonidone and meclizine- repeat CT negative, repeat MRi showing extension of previous right pontine stroke, "new small acute infarction in the right posterolateral leeanna" discussed case with neurlogy who recommends 72 hours of permissive BPs 140-160s, then goal for normotension- renal assisting with BP management, patient clin ically stable today without new deficits -c/u standing meclizine 3. 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 Resp: s/p recent aspiration pneumonia and currently off antibiotics, will m onitor and obtain repeat CXR- encourage incentive spirometry and c/u breathing treatments and guaifenesin -CHlorohexidine mouth wash to protect against aspiration PNA 4. Endo: pmh dm with severe peripheral neuropathy- c/i ISS and adjust prn, will recommend diabetic shoes 5. GI ppx: prilosec, immodium prn for loose stools- c diff negative -will defer GI scope for now for concern for esophageal dysmotility 6. DVT ppx: TEDs and heparin 7. SKin: joel-wrap bilat LE for edema 8. ID: Admission Ucx + for VRE, asymptomatic, no treatment ordered, ID recs appreciated - Facial Zoster- incomplete treatment, c/u Valtrex 1g TID x 7 days and steroid eye drop to prevent corneal scarring-discussed with medicine, patient's symptoms improving 9. Dispo: 08/10/18 to home, will likely push off until 72 hours with good BP management and improvement with dizziness Allergies Coded Allergies: No Known Allergies (Unverified , 07/19/18) Vital Signs Vital Signs Date Time Temp Pulse Resp B/P (MAP) Pulse Ox O2 Delivery O2 Flow Rate FiO2 08/06/18 07:46 150/77 08/06/18 07:44 74 08/06/18 06:00 97.7 18 95 08/04/18 06:00 2.0 Laboratory Data CBC/BMP Laboratory Tests 08/06/18 06:34 Red Blood Count 3.50 L, Mean Corpuscular Volume 93.1, Mean Corpuscular Hemoglobin 30.3, Mean Corpuscular Hemoglobin Concent 32.5, Red Cell Distribution Width 13.7, Neutrophils (%) (Auto) 72.1 H, Lymphocytes (%) (Auto) 10.5 L, Monocytes (%) (Auto) 8.0 H, Eosinophils (%) (Auto) 8.0 H, Basophils (%) (Auto) 0.7, Neutrophils # (Auto) 5.5, Lymphocytes # (Auto) 0.8 L, Monocytes # (Auto) 0.6, Eosinophils # (Auto) 0.6 H, Basophils # (Auto) 0.1, Calcium Level 8.6 L Labs 24H Laboratory Tests 2 08/05/18 11:46: Bedside Glucose (Misc Panel) 192H 08/05/18 17:24: Bedside Glucose (Misc Panel) 190H 08/05/18 20:15: Bedside Glucose (Misc Panel) 209H 08/06/18 06:34: Immature Granulocyte % (Auto) 0.7, White Blood Count 7.6, Red Blood Count 3.50L, Hemoglobin 10.6L, Hematocrit 32.6L, Mean Corpuscular Volume 93.1, Mean Corpuscular Hemoglobin 30.3, Mean Corpuscular Hemoglobin Concent 32.5, Red Cell Distribution Width 13.7, Platelet Count 333, Neutrophils (%) (Auto) 72.1H, Lymphocytes (%) (Auto) 10.5L, Monocytes (%) (Auto) 8.0H, Eosinophils (%) (Auto) 8.0H, Basophils (%) (Auto) 0.7, Neutrophils # (Auto) 5.5, Lymphocytes # (Auto) 0.8L, Monocytes # (Auto) 0.6, Eosinophils # (Auto) 0.6H, Basophils # (Auto) 0.1, Nucleated Red Blood Cells % (auto) 0.0, Anion Gap 6L, Glomerular Filtration Rate 50.0, Blood Urea Nitrogen 13, Creatinine 1.48H, Sodium Level 140, Potassium Level 4.4, Chloride Level 101, Carbon Dioxide Level 33H, Calcium Level 8.6L Microbiology Microbiology 07/28/18 Urine Culture - Final, Complete Enterococcus Faecalis (Vre) Current Medications Current Medications Current Medications Acetaminophen (Tylenol Tab) 650 mg Q4HP PRN PO MILD PAIN (PS 1-4) Last administered on 08/05/18 02:04; Start 07/28/18 at 18:45 Albuterol/ Ipratropium (Duoneb (Ipr 0.5mg/Alb 2.5mg)) 3 ml RTID NEB Last administered on 08/04/18 20:09; Start 07/29/18 at 20:00 Amlodipine Besylate (Norvasc) 5 mg BID PO Last administered on 08/06/18 07:44; Start 08/05/18 at 21:00 Amlodipine Besylate (Norvasc) 5 mg DAILY PO Last administered on 08/05/18 08:06; Start 08/01/18 at 09:00; Stop 08/05/18 at 12:18; Status DC Aspirin (Aspirin) 325 mg DAILY PO Last administered on 08/05/18 08:03; Start 07/29/18 at 09:00; Stop 08/05/18 at 19:10; Status DC Carvedilol (COReg) 6.25 mg BID PO Last administered on 08/06/18 07:44; Start 07/30/18 at 12:00 Chlorhexidine Gluconate (Peridex Oral Rinse) 15 ml TID SSP Last administered on 08/06/18 07:45; Start 07/29/18 at 16:00 Clonidine HCl (Catapres) 0.1 mg QHS PO Last administered on 07/31/18at 20:58; Start 07/29/18 at 21:00; Stop 08/01/18 at 14:22; Status DC Clopidogrel Bisulfate (PLAVix) 75 mg DAILY PO Last administered on 08/06/18 07:44; Start 08/06/18 at 09:00 Dextrose (Dextrose 50%) 25 ml ASDIRECTED PRN IV SEE LABEL COMMENTS; Start 07/28/18 at 18:45 Furosemide (Lasix) 40 mg BID@09,17 PO Last administered on 08/03/18 16:22; Start 07/29/18 at 09:00; Stop 08/03/18 at 18:06; Status DC Furosemide (Lasix) 60 mg DAILY PO Last administered on 08/06/18at 07:44; Start 08/04/18 at 09:00 Gabapentin (Neurontin) 100 mg BID PO Last administered on 08/06/18at 07:43; Start 08/03/18 at 21:00 Gabapentin (Neurontin) 100 mg QID PO Last administered on 08/03/18at 12:01; Start 07/28/18 at 21:00; Stop 08/03/18 at 13:00; Status DC Glucagon (Glucagon) 1 mg ASDIRECTED PRN SC SEE LABEL COMMENTS; Start 07/28/18 at 18:45 Glucose (Glucose) 16 GM ASDIRECTED PRN PO SEE LABEL COMMENTS; Start 07/28/18 at 18:45 Guaifenesin (Robitussin Tab) 400 mg BID PO Last administered on 08/06/18at 07:45; Start 07/29/18 at 21:00 Heparin Sodium (Porcine) (Heparin) 5,000 units Q8H SC Last administered on 08/06/18at 05:44; Start 07/28/18 at 22:00 Hydralazine HCl (Apresoline) 25 mg Q6HP PRN PO prn for >140 sBP Last administered on 07/29/18at 09:13; Start 07/28/18 at 18:45; Stop 07/29/18 at 10:44; Status DC Hydralazine HCl (Apresoline) 25 mg TID PO Last administered on 08/06/18at 07:46; Start 08/02/18 at 16:00 Hydralazine HCl (Apresoline) 50 mg Q6HP PRN PO prn for >140 sBP; Start 07/29/18 at 10:45; Stop 07/29/18 at 10:51; Status DC Hydralazine HCl (Apresoline) 50 mg Q6HP PRN PO prn for >140 sBP Last administered on 07/30/18at 10:57; Start 07/29/18 at 17:00; Stop 07/30/18 at 10:59; Status DC Hydralazine HCl (Apresoline) 50 mg TID PO Last administered on 08/02/18at 08:17; Start 07/30/18 at 16:00; Stop 08/02/18 at 10:42; Status DC Insulin Detemir (Levemir Insulin) 18 units BID SC Last administered on 08/06/18at 07:45; Start 07/28/18 at 21:00 Insulin Human Lispro (HumaLOG INSULIN) SEE PROTOCOL TABLE AC SC Last administered on 08/06/18at 07:46; Start 07/29/18 at 07:30 Insulin Human Lispro (HumaLOG INSULIN) SEE PROTOCOL TABLE QHS SC Last administered on 08/03/18at 20:46; Start 07/28/18 at 21:00 Isosorbide Mononitrate (Imdur) 30 mg DAILY PO Last administered on 08/06/18at 07:44; Start 07/31/18 at 09:00 Labetalol HCl (Normodyne, Trandate) 10 mg STAT STAT IV ; Start 08/05/18 at 10:18; Stop 08/05/18 at 10:19; Status Cancel Lisinopril (Prinivil) 20 mg BID PO Last administered on 07/31/18at 10:00; Start 07/29/18 at 21:00; Stop 07/31/18 at 11:53; Status DC Lisinopril (Prinivil) 20 mg DAILY PO Last administered on 07/29/18at 08:10; Start 07/29/18 at 09:00; Stop 07/29/18 at 10:44; Status DC Loperamide HCl (Imodium) 2 mg ASDIRECTED PRN PO DIARRHEA; Start 08/03/18 at 17:30 Meclizine HCl (Antivert) 12.5 mg QHS PO Last administered on 08/02/18at 21:09; Start 07/31/18 at 21:00; Stop 08/03/18 at 17:29; Status DC Meclizine HCl (Antivert) 12.5 mg TID PO Last administered on 07/31/18at 10:00; Start 07/30/18 at 09:00; Stop 07/31/18 at 11:24; Status DC Meclizine HCl (Antivert) 12.5 mg TID PO ; Start 08/05/18 at 09:00; Stop 08/05/18 at 10:08; Status DC Meclizine HCl (Antivert) 12.5 mg TID PO Last administered on 08/06/18 07:43; Start 08/05/18 at 16:00 Metoprolol Tartrate (Lopressor) 50 mg BID PO Last administered on 08/01/18 21:35; Start 07/28/18 at 21:00; Stop 08/02/18 at 10:51; Status DC Nitroglycerin (Nitrostat (1/ 150)) 0.4 mg Q5MP PRN SL CHEST PAIN; Start 07/28/18 at 18:45 Omeprazole (PriLOSEC) 20 mg DAILY PO ; Start 07/29/18 at 09:00; Stop 07/29/18 at 09:00; Status DC Omeprazole (PriLOSEC) 20 mg DAILY PO Last administered on 08/06/18 07:43; Start 07/29/18 at 09:00 Ondansetron HCl (ZOFRAN INJection) 4 mg Q6HP PRN IV NAUSEA OR VOMITING Last administered on 08/05/18 05:50; Start 08/05/18 at 05:45 Ondansetron HCl (Zofran) 4 mg Q6HP PRN PO NAUSEA Last administered on 07/30/18 10:06; Start 07/28/18 at 18:45; Stop 08/05/18 at 05:33; Status DC Oxcarbazepine (Trileptal) 150 mg BID PO Last administered on 08/02/18 08:14; Start 07/31/18 at 21:00; Stop 08/02/18 at 10:44; Status DC Oxcarbazepine (Trileptal) 150 mg DAILY@2000 PO Last administered on 08/02/18 21:09; Start 08/02/18 at 20:00; Stop 08/03/18 at 18:06; Status DC Oxcarbazepine (Trileptal) 150 mg QAM PO Last administered on 07/31/18 10:04; Start 07/29/18 at 09:00; Stop 07/31/18 at 11:26; Status DC Oxcarbazepine (Trileptal) 300 mg QHS PO Last administered on 07/30/18 21:43; Start 07/28/18 at 21:00; Stop 07/31/18 at 11:26; Status DC Pantoprazole Sodium (Protonix) 40 mg QPM PO ; Start 07/29/18 at 21:00; Stop at 21:00; Status DC Potassium Chloride (Micro-K Extencaps) 20 meq DAILY PO Last administered on 08/05/18at 08:04; Start 07/29/18 at 09:00; Stop 08/05/18 at 12:20; Status DC Pravastatin Sodium (Pravachol) 40 mg QHS PO Last administered on 08/05/18at 22:03; Start 07/28/18 at 21:00 Prednisolone Acetate (Predforte 1% Ophth Susp) 2 drop QID OD Last administered on 08/06/18at 07:46; Start 08/03/18 at 14:15 Psyllium Hydrophilic Mucilloid (Metamucil) 1 pkt BID PO Last administered on 08/06/18at 07:45; Start 08/03/18 at 21:00 Spironolactone (Aldactone) 12.5 mg DAILY PO Last administered on 08/06/18at 0 7:45; Start 08/06/18 at 09:00; Status Future hold Valacyclovir HCl (Valtrex) 1,000 mg DAILY PO ; Start 08/03/18 at 15:00; Stop 08/03/18 at 15:26; Status DC Valacyclovir HCl (Valtrex) 1,000 mg TID PO Last administered on 08/06/18at 07:44; Start 08/03/18 at 16:00; Stop 08/10/18 at 09:01 KOFI REDMOND MD Aug 06, 2018 09:00
--- NOTE | 2018-08-06 16:36 | IPN ---
DATE: 08/06/2018 INFECTIOUS DISEASE PROGRESS NOTE SUBJECTIVE: The patient is seen at bedside. He states that he is feeling better today. Denies any fevers, chills, night sweats. No nausea or vomiting. He is currently on Valtrex and steroid eye drops for presumed shingles; however, he states that his last shingles episode was about a month ago, which was treated with Valtrex at that point. Denies any blurred vision or eye pain. There is concern over some vision changes overnight and imaging revealed a new small infarct in the leeanna, extension of the previous infarct, for which the primary team spoke with neurology. He denies dysuria, urgency, frequency or hematuria. PHYSICAL EXAMINATION: VITAL SIGNS: Temperature 97.7, pulse 74, respirations 18, blood pressure 150/77, mean arterial pressure of 101, pulse oximetry 95% on 2 liters nasal cannula. GENERAL: Resting comfortably in bed. No acute distress. Alert and oriented times three. HEENT: Normocephalic, atraumatic. Extraocular muscles are intact without any scleral hemorrhage. No facial lesions or signs of any current active shingles on the face. No oral lesions. CARDIAC: Normal S1, S2 with a 2/6 systolic ejection murmur. LUNGS: Clear to auscultation bilaterally without any adventitious sounds. ABDOMEN: Soft, nontender, nondistended. Positive bowels sounds. EXTREMITIES: 1 to 2+ pitting edema bilaterally with lipodermatosclerosis. NEUROLOGIC: No slurred speech or tremors. No facial droop currently. LABORATORIES: WBC 7.6, hemoglobin and hematocrit 10.6 and 32.6, platelets 333. BUN and creatinine 13 and 1.48. ASSESSMENT AND PLAN: Given the patient was already treated for his facial shingles over a month ago with Valtrex, we will currently discontinue Valtrex. He also does not endorse any ophthalmic symptoms. No current visual disturbances. We will also discontinue his steroid eye drops. His only visual complaint is blurred vision, which is intermittent and possibly related to his stroke and does not appear to be related to his prior shingles infection. For his asymptomatic vancomycin-resistant Enterococcus (VRE) bacteremia, as previously mentioned, he does not need treatment, as he does not have any urinary complaints. Continue on contact precautions. [facility]
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
[2018-08-06] MEDS: PRAVASTATIN 20 MG TAB PO SCH (20:53)
--- NOTE | 2018-08-06 20:54 | IPN ---
DATE: 08/06/2018 INFECTIOUS DISEASE PROGRESS NOTE SUBJECTIVE: The patient is examined at bedside. He reportedly had an episode of blurred vision yesterday evening and was worked up for worsening infarct in the leeanna. He denies any deficits today. No fevers, chills, coughing, or any urinary complaints. He does complain of right facial pain from a recent episode of shingles about a month ago, which was treated with Valtrex at that point. He denies any current visual disturbance besides the episode of blurred vision yesterday evening, which has resolved today. CURRENT MEDICATIONS: - Valtrex 1000 mg by mouth three times a day - prednisolone eye drops - Norvasc - meclizine - Zofran - Lasix - gabapentin - Metamucil - loperamide - hydralazine - Imdur - Coreg - guaifenesin - DuoNeb - Peridex - omeprazole - insulin - heparin - pravastatin - Tylenol - nitroglycerin PHYSICAL EXAMINATION: VITAL SIGNS: Temperature 97.7, pulse 74, respirations 18, blood pressure 150/77, mean arterial pressure of 101, pulse oximetry 95% on 2 liters nasal cannula. GENERAL: Resting comfortably in a chair. No acute distress. Alert and oriented times three. Fully conversant. HEENT: Normocephalic, atraumatic. Extraocular muscles are intact. Pupils are equal, round and reactive to light. No conjunctival hemorrhage or lesions appreciable. No appreciable rash or lesion on the right side of the face where he is complaining of pain from previous shingles episode. No oral lesions. CARDIAC: Normal S1, S2 with systolic ejection murmur, 2/6. LUNGS: Clear without any adventitious sounds. ABDOMEN: Normoactive bowel sounds. Soft, nontender, nondistended. EXTREMITIES: 1 to 2+ pitting edema bilaterally with lipodermatosclerosis present. NEUROLOGIC: No slurred speech or facial droop. LABORATORIES: WBC 7.6, hemoglobin and hematocrit 10.6 and 32.6, platelets 333. Sodium and potassium 140 and 4.4, BUN and creatinine 13 and 1.48. IMPRESSION AND PLAN: Mr. Rosario has residual right sided facial pain, likely postherpetic neuralgia from his recent bout of shingles. He was already treated for this one month ago with Valtrex. We will currently discontinue his inpatient Valtrex as there are no lesions appreciated. We will also discontinue his steroid eye drops given no ophthalmologic abnormalities found on examination. He does complain of some blurred vision that occurred yesterday but is not present currently. This is likely due to his acute stroke and unrelated to his recent shingles. Continue monitoring. Consider increasing his gabapentin for his post herpetic neuralgia. For his asymptomatic bacteruria with vancomycin-resistant Enterococcus (VRE), this does not require treatment, given he does not endorse any urinary complaints. Continue on contact precautions. MTDD
--- NOTE | 2018-08-06 23:11 | IPNPDOC ---
Text Note Date of Service The patient was seen on 08/06/18. NOTE Pt was seen and examined at bedside. Pt is awake and alert in no distress. Pt is sitting in the chair with pleasant mood states would like to go home. Denies any headache, any weakness or dizziness. Subjective: General: Reports: Normal Appetite; Denies: Chills, Night Sweats, Fatigue, Malaise Constitutional: Denies: Chills, Fever, Night Sweats Eyes: Denies: Pain, Vision change ENT: Denies: Head Aches, Ear Pain, Dysphagia Skin: Denies: Rash, Lesions, Breakdown Pulmonary: Denies: Dyspnea, Cough Cardiovascular: Denies: Chest Pain, Palpitations, Orthopnea, Paroxysmal Noc. Dyspnea, Lt Headedness Gastrointestinal: Denies: Nausea, Vomiting, Abdominal Pain, Diarrhea, Constipation Genitourinary: Denies: Dysuria, Frequency, Incontinence, Retention Hematologic: Denies: Bruising, Bleeding Excessively Physical Examination General Exam: Positive: Cooperative, No Acute Distress Eye Exam: Positive: PERRLA, Conjunctiva & lids normal, EOMI ENT Exam: Positive: Atraumatic, Mucous membr. moist/pink, Pharynx Normal Neck Exam: Positive: Supple; Negative: JVD, thyromegaly Chest Exam: Positive: Clear to auscultation, Normal air movement Heart Exam: Positive: Rate Normal Abdomen Exam: Positive: Normal bowel sounds, Soft; Negative: Tenderness Extremity Exam: Positive: Edema (2+ to BLE with venous stasis changes) Skin Exam: Positive: Other skin issue (venous stasis changes) Neuro Exam: Positive: Normal Tone; Negative: Normal Speech (slow speech), Strength at 5/5 X4 ext (right upper extremity weakness) Psych Exam: Positive: Mental status NL (sleepy) Vital Signs Date Time Temp Pulse Resp B/P (MAP) Pulse Ox O2 Delivery O2 Flow Rate FiO2 08/08/18 06:00 98.9 89 19 146/70 (95) 96 08/08/18 02:00 98.7 90 18 164/80 (108) 96 08/07/18 22:00 96 142/82 08/07/18 21:00 142/82 08/07/18 20:00 98.6 96 18 142/82 (102) 97 08/07/18 18:00 97.7 81 16 169/77 (107) 98 08/07/18 17:22 125/93 08/07/18 14:00 97.7 72 16 135/63 (87) 98 08/07/18 10:00 98.4 76 16 141/68 (92) 97 Intake & Output 08/08/18 06:00 Intake Total 960 ml Output Total 500 ml Balance 460 ml Laboratory Tests 08/07/18 11:25: Bedside Glucose (Misc Panel) 296H 08/07/18 16:41: Bedside Glucose (Misc Panel) 220H 08/07/18 20:17: Bedside Glucose (Misc Panel) 296H 08/08/18 06:19: Bedside Glucose (Misc Panel) 254H Current Medications Medications (Trade) Dose Ordered Sig/Mike Route PRN Reason Start Time Stop Time Status Last Admin Dose Admin Acetaminophen (Tylenol Tab) 650 mg Q4HP PRN PO MILD PAIN (PS 1-4) 07/28/18 18:45 08/05/18 02:04 650 MG Albuterol/ Ipratropium (Duoneb (Ipr 0.5mg/Alb 2.5mg)) 3 ml RTID NEB 07/29/18 20:00 08/07/18 19:49 3 ML Amlodipine Besylate (Norvasc) 5 mg DAILY PO 08/07/18 09:00 08/07/18 08:17 5 MG Carvedilol (COReg) 6.25 mg BID PO 07/30/18 12:00 08/07/18 22:00 6.25 MG Chlorhexidine Gluconate (Peridex Oral Rinse) 15 ml TID SSP 07/29/18 16:00 08/07/18 21:58 15 ML Clopidogrel Bisulfate (PLAVix) 75 mg DAILY PO 08/06/18 09:00 08/07/18 08:17 75 MG Furosemide (Lasix) 60 mg DAILY PO 08/04/18 09:00 08/07/18 08:17 60 MG Gabapentin (Neurontin) 100 mg BID PO 08/03/18 21:00 08/07/18 21:59 100 MG Guaifenesin (Robitussin Tab) 400 mg BID PO 07/29/18 21:00 08/07/18 21:59 400 MG Heparin Sodium (Porcine) (Heparin) 5,000 units Q8H SC 07/28/18 22:00 08/08/18 05:51 5,000 UNITS Hydralazine HCl (Apresoline) 25 mg TID PO 08/02/18 16:00 08/06/18 07:46 25 MG Insulin Detemir (Levemir Insulin) 18 units BID SC 07/28/18 21:00 08/07/18 22:00 18 UNITS Insulin Human Lispro (HumaLOG INSULIN) SEE PROTOCOL TABLE QHS SC 07/28/18 21:00 08/07/18 21:58 2 UNITS Isosorbide Mononitrate (Imdur) 30 mg DAILY PO 07/31/18 09:00 08/07/18 08:18 30 MG Meclizine HCl (Antivert) 12.5 mg TID PO 08/05/18 16:00 08/07/18 21:59 12.5 MG Omeprazole (PriLOSEC) 20 mg DAILY PO 07/29/18 09:00 08/07/18 08:17 20 MG Ondansetron HCl (ZOFRAN INJection) 4 mg Q6HP PRN IV NAUSEA OR VOMITING 08/05/18 05:45 08/05/18 05:50 4 MG Pravastatin Sodium (Pravachol) 40 mg QHS PO 07/28/18 21:00 08/07/18 21:59 40 MG Psyllium Hydrophilic Mucilloid (Metamucil) 1 pkt BID PO 08/03/18 21:00 08/07/18 21:59 1 PKT Problems (1) CVA (cerebral vascular accident) -ischemic type to right Kayleen with left extremity weakness New extension in small area adjacent to previous stroke (2) Diastolic CHF, acute on chronic -Reduce Lasix to 60 mg daily -Continue strict input output and other guideline directed medical management of heart failure (3) GERD (gastroesophageal reflux disease) -continue aspiration precautions -continue PPI (4) Diabetes mellitus type 2, insulin dependent Chronic -diabetic diet -fingerstick checks prior to meals and at bedtime -coverage with insulin per sliding scale protocol (5) Hypertension Nephro on board to adjust BP meds for uncontrolled HTN work up ongoing for possible RA stenosis, bilateral -continue on hydralazine, imdur, norvasc -monitoring per unit protocol -adjust medications and doses for target blood pressure systolic <140 (6) CAD (coronary artery disease) of bypass graft -control blood pressure -continue statin therapy, aspirin -treatment of underlying heart failure (7) DVT prophylaxis -heparin 5000 units Q8 (8) Postherpetic neuralgia -started on valtrex today. -discontinue trileptal (9) Renal artery stenosis -possible stenosis seen on U/S which was ordered for hard to control blood pressure -O/P follow up with cardiology for further evaluation and management (10) VRE (vancomycin resistant enterococcus) culture positive -patient reports incontinence which he has had for a while -ID has been consulted for VRE findings on culture. -urine culture was VRE negative april 2018 -follow ID recommendation for recommendations for management (11) Advance care planning -code status is DNR -disposistion to home when rehab completed VS,Fishbone, I+O VS, Fishbone, I+O Laboratory Tests 08/06/18 06:34 Red Blood Count 3.50 L, Mean Corpuscular Volume 93.1, Mean Corpuscular Hemoglobi n 30.3, Mean Corpuscular Hemoglobin Concent 32.5, Red Cell Distribution Width 13.7, Neutrophils (%) (Auto) 72.1 H, Lymphocytes (%) (Auto) 10.5 L, Monocytes (%) (Auto) 8.0 H, Eosinophils (%) (Auto) 8.0 H, Basophils (%) (Auto) 0.7, Neutrophils # (Auto) 5.5, Lymphocytes # (Auto) 0.8 L, Monocytes # (Auto) 0.6, Eosinophils # (Auto) 0.6 H, Basophils # (Auto) 0.1, Calcium Level 8.6 L Vital Signs Date Time Temp Pulse Resp B/P (MAP) Pulse Ox O2 Delivery O2 Flow Rate FiO2 08/06/18 20:54 158/90 08/06/18 20:54 83 08/06/18 20:00 98.2 18 98 08/04/18 06:00 2.0 I&O- Last 24 Hours up to 6 AM 08/06/18 06:00 Intake Total 200 ml Output Total 895 ml Balance -695 ml KIM RAYMOND MD Aug 06, 2018 23:11
[2018-08-07 02:00] VITALS: BP 138/72
[2018-08-07] MEDS: HEPARIN SOD (PORCINE) 5000 UNITS/ML VIAL SC SCH ×3 (05:32→21:59)
[2018-08-07 06:00] VITALS: BP 158/78
[2018-08-07] MEDS: HumaLOG INSULIN (NovoLOG) PER UNIT SC SCH ×4 (08:16→21:58)
[2018-08-07] MEDS: amLODIPine 5 MG TAB PO SCH (08:17)
[2018-08-07] MEDS: OMEPRAZOLE 20 MG CAP PO SCH (08:17)
[2018-08-07] MEDS: FUROSEMIDE 20 MG TAB PO SCH (08:17)
[2018-08-07] MEDS: CLOPIDOGREL 75 MG TAB PO SCH (08:17)
[2018-08-07] MEDS: guaiFENesin 200 MG TAB PO SCH ×2 (08:17→21:59)
[2018-08-07] MEDS: GABAPENTIN 100 MG CAP PO SCH ×2 (08:17→21:59)
[2018-08-07] MEDS: CARVedilol 6.25 MG TAB PO SCH ×2 (08:18→22:00)
[2018-08-07] MEDS: MECLIZINE 12.5 MG TAB PO SCH ×3 (08:18→21:59)
[2018-08-07] MEDS: ISOSORBIDE MON. (IMDUR) 30 MG XR TAB PO SCH (08:18)
[2018-08-07] MEDS: METAMUCIL (PSYLLIUM) PACKET PO SCH ×2 (08:19→21:59)
[2018-08-07] MEDS: **hydrALAZINE HCL** 25 MG TAB PO SCH ×3 (08:19→21:00)
[2018-08-07] MEDS: LEVEMIR (INSULIN DETEMIR) 1 UNITS/0.01ML SC SCH ×2 (08:20→22:00)
[2018-08-07] MEDS: CHLORHEXIDINE GLUCONATE 0.12 % 15ML UDC (PERIDEX ORAL RINSE) SSP SCH ×3 (08:20→21:58)
[2018-08-07] MEDS: IPRATROPIUM 0.5MG/ALBUTEROL 2.5MG INH SOL UD 3ML (DUONEB)(J7620) NEB SCH ×3 (09:07→19:49)
[2018-08-07 10:00] VITALS: BP 141/68
[2018-08-07 14:00] VITALS: BP 135/63
--- NOTE | 2018-08-07 16:25 | IPN ---
DATE: 08/07/2018 SUBJECTIVE: Patient is seen and examined this morning at the bedside. He had an MRI yesterday that showed a new small acute infarction in the right posterior lateral leeanna, which was an extension of the previously noted subacute infarction. The patient's of blood pressures are soft this morning. Systolic is as low as 97 and his antihypertensives are cut down by myself and his holding parameters are adjusted. The patient himself denies any complaints besides generalized frustration and stress related to his strokes. VITAL SIGNS: Temperature 96.9, pulse 63, respiratory rate 18, blood pressure 108/62, saturating 97% on room air. Intake yesterday was not fully recorded. Urine output yesterday was a liter plus two more incontinent voids. Weight in the bed scale today is not recorded. GENERAL: Patient is seen sitting out of bed to the chair. He is awake, alert, oriented and conversational and is feeding himself lunch. Extraocular muscles are intact. Tongue is moist. Neck is supple. Jugular veins were not elevated. CARDIAC: S1, S2. Regular rate and rhythm. Trace edema in the lower extremities. LUNGS: Clear to auscultation bilaterally. No crackle, rale or wheeze. ABDOMEN: Soft, obese and nontender. EXTREMITIES: Do have trace edema and some venous stasis changes. SKIN: Normal turgor and temperature. LABORATORY DATA: White count 8.2, hemoglobin 11.6, platelet 312,. Sodium 140, potassium 4.4, BUN 13, creatinine 1.4 IMAGING STUDIES: Brain MRI 08/05/2018: Small acute infarct in right posterior lateral leeanna, which is an extension of the previously noted right anterior pontine subacute infarction and multiple old infarctions are also noted. Small-vessel ischemic disease. INPATIENT MEDICATIONS: I discontinued the spironolactone. I reduced the amlodipine down to 5 mg once daily. I added holding parameters to his hydralazine and isosorbide. He is noted to be started on Plavix 75 mg by mouth daily and Zofran as needed. PROBLEMS: 1. Renovascular hypertension. Renal artery Doppler was suggestive of bilateral renal artery stenosis; however this has not been confirmed with MRA or CTA. His blood pressures were initially elevated the past several days; however, today his blood pressures are quite soft. Systolic is ranging from 97-110. He had extension of his acute infarction and neurology is recommending that we keep his blood pressure from systolic 140-160. In view of this, I am discontinuing spironolactone. I am reducing amlodipine 5 mg once daily and I have also staggered his holding parameters on his antihypertensive, his hydralazine and his isosorbide. He will now only receive if the systolic is greater than 170 and he will receive Carvedilol, amlodipine if systolic is greater than 140. 2. Diastolic congestive heart failure. Mildly hypervolemic on exam. Continue Lasix 60 mg by mouth daily. Spironolactone is being discontinued in view of recent extension of his acute infarction and borderline blood pressures. 3. Chronic kidney disease (CKD) stage III. Renal function is at his usual baseline. He does have a history of recurrent and easily provoked acute kidney injuries and that may be because of renal vascular disease and renal artery stenosis. 4. Acute infarction in a patient with history of multiple prior infarctions. Continues with rehabilitation and is tolerating a pureed diet. He was noted to be started on Plavix and neurology recommendations are noted. He has a history of aortic valve replacement. Given his multiple infarctions and history of valvular replacement, I question if there is any need for transesophageal echocardiogram.
--- NOTE | 2018-08-07 17:13 | IPN ---
DATE: 08/07/2018 Mr. Rosario is seen this morning on his bedside. He is sitting in the chair at the time of my visit. He is feeling better now and his weakness is improving. He denies any nausea, vomiting, dyspnea or chest pain. He has known history of recurrent strokes with most recent one in his leeanna. He also has a history of recurrent acute renal failure with fluctuating blood pressures. His medications have been adjusted with hold parameters and he seems to be doing well now. He is felt to have renal artery stenosis according to the most recent ultrasound. PHYSICAL EXAMINATION: Temperature 98.4 degrees Fahrenheit, heart rate 76 per minute and respiratory rate 16 per minute. Blood pressure 141/68 mmHg and oxygen saturation 97% on room air. Head is atraumatic. Neck is supple and without jugular venous distention (JVD) sitting upright. Lungs sound clear to auscultation. Heart sounds are regular and without a gallop or murmur. Abdomen is soft and nontender. Bowel sounds are normal. Extremities have no cyanosis or clubbing. Neurologically, he is awake, alert and sitting in the chair. He does not seem to have any significant focal deficit. LABORATORY DATA: Today's blood sugars are 191, 296 and 220 respectively. He did not have any other laboratories done. PROBLEMS: 1. Acute kidney injury, superimposed on chronic kidney disease. Kidney function seems to be relatively stable. He did have some fluctuations probably related to his volume status and blood pressure. At this point, we will continue to watch and monitor. 2. Hypertension. Blood pressure seems to be doing well with current medications and hold parameters. He will need to split his medications at home and also monitor his blood pressure at home before taking his medications. He does remain at risk for recurrent strokes with too low blood pressure. 3. Bilateral renal artery stenosis. Renal arterial Doppler study was consistent with possible bilateral renal artery stenosis. At this point, we will watch it and probably consider either a renal MRA or an angiogram at a later time once he is more stable. At this point, his renal function is stable and blood pressure is well-controlled so there is no emergent indication for any intervention.
[2018-08-07 18:00] VITALS: BP 169/77
[2018-08-07 20:00] VITALS: BP 142/82
[2018-08-07] MEDS: PRAVASTATIN 20 MG TAB PO SCH (21:59)
[2018-08-08 02:00] VITALS: BP 164/80
[2018-08-08] MEDS: HEPARIN SOD (PORCINE) 5000 UNITS/ML VIAL SC SCH ×3 (05:51→20:48)
[2018-08-08 06:00] VITALS: BP 146/70
[2018-08-08] MEDS: IPRATROPIUM 0.5MG/ALBUTEROL 2.5MG INH SOL UD 3ML (DUONEB)(J7620) NEB SCH ×3 (06:24→20:29)
--- NOTE | 2018-08-08 08:33 | IPNPDOC ---
Text Note Date of Service The patient was seen on 08/07/18. NOTE Pt was seen and examined at bedside. Pt is awake and alert. Pt with no new neurology deficit. Denies any acute complaints. Subjective: General: Reports: Normal Appetite; Denies: Chills, Night Sweats, Fatigue, Malaise Constitutional: Denies: Chills, Fever, Night Sweats Eyes: Denies: Pain, Vision change ENT: Denies: Head Aches, Ear Pain, Dysphagia Skin: Denies: Rash, Lesions, Breakdown Pulmonary: Denies: Dyspnea, Cough Cardiovascular: Denies: Chest Pain, Palpitations, Orthopnea, Paroxysmal Noc. Dyspnea, Lt Headedness Gastrointestinal: Denies: Nausea, Vomiting, Abdominal Pain, Diarrhea, Constipation Genitourinary: Denies: Dysuria, Frequency, Incontinence, Retention Hematologic: Denies: Bruising, Bleeding Excessively Physical Examination General Exam: Positive: Cooperative, No Acute Distress Eye Exam: Positive: PERRLA, Conjunctiva & lids normal, EOMI ENT Exam: Positive: Atraumatic, Mucous membr. moist/pink, Pharynx Normal Neck Exam: Positive: Supple; Negative: JVD, thyromegaly Chest Exam: Positive: Clear to auscultation, Normal air movement Heart Exam: Positive: Rate Normal Abdomen Exam: Positive: Normal bowel sounds, Soft; Negative: Tenderness Extremity Exam: Positive: Edema (2+ to BLE with venous stasis changes) Skin Exam: Positive: Other skin issue (venous stasis changes) Neuro Exam: Positive: Normal Tone; Negative: Normal Speech (slow speech), Strength at 5/5 X4 ext (right upper extremity weakness) Psych Exam: Positive: Mental status NL (sleepy) Vital Signs Date Time Temp Pulse Resp B/P (MAP) Pulse Ox O2 Delivery O2 Flow Rate FiO2 08/08/18 06:00 98.9 89 19 146/70 (95) 96 08/08/18 02:00 98.7 90 18 164/80 (108) 96 08/07/18 22:00 96 142/82 08/07/18 21:00 142/82 08/07/18 20:00 98.6 96 18 142/82 (102) 97 08/07/18 18:00 97.7 81 16 169/77 (107) 98 08/07/18 17:22 125/93 08/07/18 14:00 97.7 72 16 135/63 (87) 98 08/07/18 10:00 98.4 76 16 141/68 (92) 97 Intake & Output 08/08/18 06:00 Intake Total 960 ml Output Total 500 ml Balance 460 ml Laboratory Tests 08/07/18 11:25: Bedside Glucose (Misc Panel) 296H 08/07/18 16:41: Bedside Glucose (Misc Panel) 220H 08/07/18 20:17: Bedside Glucose (Misc Panel) 296H 08/08/18 06:19: Bedside Glucose (Misc Panel) 254H Current Medications Medications (Trade) Dose Ordered Sig/Mike Route PRN Reason Start Time Stop Time Status Last Admin Dose Admin Acetaminophen (Tylenol Tab) 650 mg Q4HP PRN PO MILD PAIN (PS 1-4) 07/28/18 18:45 08/05/18 02:04 650 MG Albuterol/ Ipratropium (Duoneb (Ipr 0.5mg/Alb 2.5mg)) 3 ml RTID NEB 07/29/18 20:00 08/07/18 19:49 3 ML Amlodipine Besylate (Norvasc) 5 mg DAILY PO 08/07/18 09:00 08/07/18 08:17 5 MG Carvedilol (COReg) 6.25 mg BID PO 07/30/18 12:00 08/07/18 22:00 6.25 MG Chlorhexidine Gluconate (Peridex Oral Rinse) 15 ml TID SSP 07/29/18 16:00 08/07/18 21:58 15 ML Clopidogrel Bisulfate (PLAVix) 75 mg DAILY PO 08/06/18 09:00 08/07/18 08:17 75 MG Furosemide (Lasix) 60 mg DAILY PO 08/04/18 09:00 08/07/18 08:17 60 MG Gabapentin (Neurontin) 100 mg BID PO 08/03/18 21:00 08/07/18 21:59 100 MG Guaifenesin (Robitussin Tab) 400 mg BID PO 07/29/18 21:00 08/07/18 21:59 400 MG Heparin Sodium (Porcine) (Heparin) 5,000 units Q8H SC 07/28/18 22:00 08/08/18 05:51 5,000 UNITS Hydralazine HCl (Apresoline) 25 mg TID PO 08/02/18 16:00 08/06/18 07:46 25 MG Insulin Detemir (Levemir Insulin) 18 units BID SC 07/28/18 21:00 08/07/18 22:00 18 UNITS Insulin Human Lispro (HumaLOG INSULIN) SEE PROTOCOL TABLE QHS SC 07/28/18 21:00 08/07/18 21:58 2 UNITS Isosorbide Mononitrate (Imdur) 30 mg DAILY PO 07/31/18 09:00 08/07/18 08:18 30 MG Meclizine HCl (Antivert) 12.5 mg TID PO 08/05/18 16:00 08/07/18 21:59 12.5 MG Omeprazole (PriLOSEC) 20 mg DAILY PO 07/29/18 09:00 08/07/18 08:17 20 MG Ondansetron HCl (ZOFRAN INJection) 4 mg Q6HP PRN IV NAUSEA OR VOMITING 08/05/18 05:45 08/05/18 05:50 4 MG Pravastatin Sodium (Pravachol) 40 mg QHS PO 07/28/18 21:00 08/07/18 21:59 40 MG Psyllium Hydrophilic Mucilloid (Metamucil) 1 pkt BID PO 08/03/18 21:00 08/07/18 21:59 1 PKT Problems (1) CVA (cerebral vascular accident) -ischemic type to right Kayleen with left extremity weakness New extension in small area adjacent to previous stroke (2) Diastolic CHF, acute on chronic -Reduce Lasix to 60 mg daily -Continue strict input output and other guideline directed medical management of heart failure (3) GERD (gastroesophageal reflux disease) -continue aspiration precautions -continue PPI (4) Diabetes mellitus type 2, insulin dependent Chronic -diabetic diet -fingerstick checks prior to meals and at bedtime -coverage with insulin per sliding scale protocol (5) Hypertension Nephro on board to adjust BP meds for uncontrolled HTN work up ongoing for possible RA stenosis, bilateral -continue on hydralazine, imdur, norvasc -monitoring per unit protocol -adjust medications and doses for target blood pressure systolic <140 (6) CAD (coronary artery disease) of bypass graft -control blood pressure -continue statin therapy, aspirin -treatment of underlying heart failure (7) DVT prophylaxis -heparin 5000 units Q8 (8) Postherpetic neuralgia -started on valtrex today. -discontinue trileptal (9) Renal artery stenosis -possible stenosis seen on U/S which was ordered for hard to control blood pressure -O/P follow up with cardiology for further evaluation and management (10) VRE (vancomycin resistant enterococcus) culture positive -patient reports incontinence which he has had for a while -ID has been consulted for VRE findings on culture. -urine culture was VRE negative april 2018 -follow ID recommendation for recommendations for management (11) Advance care planning -code status is DNR -disposistion to home when rehab completed VS,Fishbone, I+O VS, Fishbone, I+O Vital Signs Date Time Temp Pulse Resp B/P (MAP) Pulse Ox O2 Delivery O2 Flow Rate FiO2 08/08/18 06:00 98.9 89 19 146/70 (95) 96 08/04/18 06:00 2.0 I&O- Last 24 Hours up to 6 AM 08/08/18 06:00 Intake Total 960 ml Output Total 500 ml Balance 460 ml KIM RAYMOND MD Aug 08, 2018 08:33
[2018-08-08] MEDS: amLODIPine 5 MG TAB PO SCH (09:00)
[2018-08-08] MEDS: ISOSORBIDE MON. (IMDUR) 30 MG XR TAB PO SCH (09:00)
[2018-08-08] MEDS: METAMUCIL (PSYLLIUM) PACKET PO SCH ×2 (09:00→20:48)
[2018-08-08] MEDS: CARVedilol 6.25 MG TAB PO SCH ×2 (09:00→20:50)
[2018-08-08] MEDS: **hydrALAZINE HCL** 25 MG TAB PO SCH ×3 (09:00→20:49)
[2018-08-08] MEDS: CHLORHEXIDINE GLUCONATE 0.12 % 15ML UDC (PERIDEX ORAL RINSE) SSP SCH ×3 (09:01→20:50)
[2018-08-08] MEDS: OMEPRAZOLE 20 MG CAP PO SCH (09:02)
[2018-08-08] MEDS: guaiFENesin 200 MG TAB PO SCH ×2 (09:04→20:48)
[2018-08-08] MEDS: CLOPIDOGREL 75 MG TAB PO SCH (09:04)
[2018-08-08] MEDS: GABAPENTIN 100 MG CAP PO SCH ×2 (09:05→20:50)
[2018-08-08] MEDS: MECLIZINE 12.5 MG TAB PO SCH ×3 (09:05→20:49)
[2018-08-08] MEDS: FUROSEMIDE 20 MG TAB PO SCH (09:05)
[2018-08-08] MEDS: LEVEMIR (INSULIN DETEMIR) 1 UNITS/0.01ML SC SCH ×2 (09:06→20:51)
[2018-08-08] MEDS: HumaLOG INSULIN (NovoLOG) PER UNIT SC SCH ×4 (09:06→20:51)
[2018-08-08 10:00] VITALS: BP 142/67
--- NOTE | 2018-08-08 10:52 | IPNPDOC ---
Subjective Date Seen The patient was seen on 08/08/18. Subjective Chief Complaint/HPI pontine stroke Events since last encounter Resting at bedsie in chair. denies c/o. Has some residual pain to right ear and head from post-herpetic neuralgia Skin: Denies: Rash, Lesions, Breakdown Pulmonary: Denies: Dyspnea, Cough Cardiovascular: Denies: Chest Pain, Palpitations, Orthopnea, Paroxysmal Noc. Dyspnea, Lt Headedness Gastrointestinal: Denies: Nausea, Vomiting, Abdominal Pain, Diarrhea, Constipation Objective Physical Examination General Exam: Positive: Cooperative, No Acute Distress Eye Exam: Positive: PERRLA, Conjunctiva & lids normal, EOMI ENT Exam: Positive: Atraumatic, Mucous membr. moist/pink, Pharynx Normal Neck Exam: Positive: Supple; Negative: JVD, thyromegaly Chest Exam: Positive: Clear to auscultation, Normal air movement Heart Exam: Positive: Rate Normal Abdomen Exam: Positive: Normal bowel sounds, Soft; Negative: Tenderness Extremity Exam: Positive: Edema (2+ to BLE with venous stasis changes) Skin Exam: Positive: Other skin issue (venous stasis changes, foam dressing to posterior LLE) Neuro Exam: Positive: Normal Tone; Negative: Normal Speech (slow speech, yet is still comprehensible), Strength at 5/5 X4 ext (right upper extremity weakness) Psych Exam: Positive: Mental status NL (sleepy) Assessment /Plan Problems (1) CVA (cerebral vascular accident) Problem Text: -ischemic type to right Kayleen with left extremity weakness -has not had any new changes -mental status continued to improve -S/P ILR placement -MRI brain negative for new intracranial event -continued in rehab unit for mobilization/strengthening (2) Diastolic CHF, acute on chronic Problem Text: -Reduce Lasix to 60 mg daily -Continue strict input output and other guideline directed medical management of heart failure (3) GERD (gastroesophageal reflux disease) Problem Text: -continue aspiration precautions -continue PPI (4) Diabetes mellitus type 2, insulin dependent Status: Chronic Problem Text: -diabetic diet -fingerstick checks prior to meals and at bedtime -coverage with insulin per sliding scale protocol (5) Hypertension Status: Chronic Problem Text: -continue on hydralazine, imdur -monitoring per unit protocol -adjust medications and doses for target blood pressure systolic <140 (6) CAD (coronary artery disease) of bypass graft Status: Chronic Problem Text: -control blood pressure -continue statin therapy, aspirin -treatment of underlying heart failure (7) DVT prophylaxis Problem Text: -heparin 5000 units Q8 (8) Postherpetic neuralgia Status: Acute Problem Text: continue Valtrex today. (9) Renal artery stenosis Problem Text: -possible stenosis seen on U/S which was ordered for hard to control blood pressure. Nephro following. Consider MRA/renal angiogram pending nephro recommendations. t (10) VRE (vancomycin resistant enterococcus) culture positive Problem Text: -patient reports incontinence which he has had for a while -ID has been consulted for VRE findings on culture. -urine culture was VRE negative april 2018 -follow ID recommendation for recommendations for management (11) Advance care planning Problem Text: -code status is DNR -disposistion to home when rehab completed Plan/VTE VTE Prophylaxis Ordered?: Yes VS, I&O, 24H, Fishbone Vital Signs/I&O Vital Signs Date Time Temp Pulse Resp B/P (MAP) Pulse Ox O2 Delivery O2 Flow Rate FiO2 08/08/18 10:00 98.4 79 18 142/67 (92) 97 08/04/18 06:00 2.0 I&O- Last 24 Hours up to 6 AM 08/08/18 06:00 Intake Total 960 ml Output Total 500 ml Balance 460 ml Laboratory Data 24H LABS Laboratory Tests 2 08/07/18 11:25: Bedside Glucose (Misc Panel) 296H 08/07/18 16:41: Bedside Glucose (Misc Panel) 220H 08/07/18 20:17: Bedside Glucose (Misc Panel) 296H 08/08/18 06:19: Bedside Glucose (Misc Panel) 254H Elise Hernandez [employer] Aug 08, 2018 10:52
[2018-08-08 14:00] VITALS: BP 152/76
[2018-08-08 18:00] VITALS: BP 156/78
[2018-08-08] MEDS: PRAVASTATIN 20 MG TAB PO SCH (20:49)
[2018-08-08 22:00] VITALS: BP 153/74
[2018-08-09] VITALS (8 sets, daily range): BP systolic 136–168; BP diastolic 67–84
[2018-08-09] MEDS: HEPARIN SOD (PORCINE) 5000 UNITS/ML VIAL SC SCH ×3 (06:01→21:25)
[2018-08-09] MEDS: IPRATROPIUM 0.5MG/ALBUTEROL 2.5MG INH SOL UD 3ML (DUONEB)(J7620) NEB SCH ×3 (07:13→19:50)
--- NOTE | 2018-08-09 07:25 | IPNPDOC ---
Text Note Date of Service The patient was seen on 08/09/18. NOTE Pt was seen and examined at bedside. Pt is awake and alert. Pt with no new neurology deficit. Denies any acute complaints. Subjective: General: Reports: Normal Appetite; Denies: Chills, Night Sweats, Fatigue, Malaise Constitutional: Denies: Chills, Fever, Night Sweats Eyes: Denies: Pain, Vision change ENT: Denies: Head Aches, Ear Pain, Dysphagia Skin: Denies: Rash, Lesions, Breakdown Pulmonary: Denies: Dyspnea, Cough Cardiovascular: Denies: Chest Pain, Palpitations, Orthopnea, Paroxysmal Noc. Dyspnea, Lt Headedness Gastrointestinal: Denies: Nausea, Vomiting, Abdominal Pain, Diarrhea, Constipation Genitourinary: Denies: Dysuria, Frequency, Incontinence, Retention Hematologic: Denies: Bruising, Bleeding Excessively Physical Examination General Exam: Positive: Cooperative, No Acute Distress Eye Exam: Positive: PERRLA, Conjunctiva & lids normal, EOMI ENT Exam: Positive: Atraumatic, Mucous membr. moist/pink, Pharynx Normal Neck Exam: Positive: Supple; Negative: JVD, thyromegaly Chest Exam: Positive: Clear to auscultation, Normal air movement Heart Exam: Positive: Rate Normal Abdomen Exam: Positive: Normal bowel sounds, Soft; Negative: Tenderness Extremity Exam: Positive: Edema (2+ to BLE with venous stasis changes) Skin Exam: Positive: Other skin issue (venous stasis changes) Neuro Exam: Positive: Normal Tone; Negative: Normal Speech (slow speech), Strength at 5/5 X4 ext (right upper extremity weakness) Psych Exam: Positive: Mental status NL (sleepy) Vital Signs Date Time Temp Pulse Resp B/P (MAP) Pulse Ox O2 Delivery O2 Flow Rate FiO2 08/10/18 02:00 97.7 85 18 140/69 (92) 92 2.0 08/09/18 21:48 98.1 94 18 138/67 (90) 95 08/09/18 21:24 90 151/72 08/09/18 21:00 157/72 08/09/18 20:00 97.9 90 18 151/72 (98) 95 08/09/18 18:00 98.1 86 18 146/84 (104) 95 08/09/18 16:00 142/68 08/09/18 14:00 97.6 82 18 136/82 (100) 94 08/09/18 12:25 84 152/76 (101) 08/09/18 11:00 97.9 89 18 164/82 (109) 94 08/09/18 07:59 82 140/58 08/09/18 06:00 98.3 82 17 168/80 (109) 99 2.0 Intake & Output 08/10/18 06:00 Intake Total 780 ml Output Total 750 ml Balance 30 ml Laboratory Tests 08/09/18 05:58: Bedside Glucose (Misc Panel) 220H 08/09/18 08:53: Blood Urea Nitrogen 11, Creatinine 1.25, Sodium Level 139, Potassium Level 4.2, Chloride Level 98, Carbon Dioxide Level 33H, Anion Gap 8, Glomerular Filtration Rate > 60.0, Fasting Glucose 282H, Calcium Level 8.6L, Phosphorus Level 3.4, Albumin 2.8L 08/09/18 11:02: Bedside Glucose (Misc Panel) 293H 08/09/18 16:50: Bedside Glucose (Misc Panel) 233H 08/09/18 20:11: Bedside Glucose (Misc Panel) 259H Current Medications Medications (Trade) Dose Ordered Sig/Mike Route PRN Reason Start Time Stop Time Status Last Admin Dose Admin Acetaminophen (Tylenol Tab) 650 mg Q4HP PRN PO MILD PAIN (PS 1-4) 07/28/18 18:45 08/05/18 02:04 650 MG Albuterol/ Ipratropium (Duoneb (Ipr 0.5mg/Alb 2.5mg)) 3 ml RTID NEB 07/29/18 20:00 08/09/18 19:50 3 ML Amlodipine Besylate (Norvasc) 5 mg DAILY PO 08/07/18 09:00 08/07/18 08:17 5 MG Carvedilol (COReg) 6.25 mg BID PO 07/30/18 12:00 08/09/18 21:24 6.25 MG Chlorhexidine Gluconate (Peridex Oral Rinse) 15 ml TID SSP 07/29/18 16:00 08/09/18 21:24 15 ML Clopidogrel Bisulfate (PLAVix) 75 mg DAILY PO 08/06/18 09:00 08/09/18 07:58 75 MG Furosemide (Lasix) 60 mg DAILY PO 08/04/18 09:00 08/09/18 07:57 60 MG Gabapentin (Neurontin) 100 mg BID PO 08/03/18 21:00 08/09/18 21:24 100 MG Guaifenesin (Robitussin Tab) 400 mg BID PO 07/29/18 21:00 08/09/18 21:24 400 MG Heparin Sodium (Porcine) (Heparin) 5,000 units Q8H SC 07/28/18 22:00 08/09/18 21:25 5,000 UNITS Hydralazine HCl (Apresoline) 25 mg TID PO 08/02/18 16:00 08/08/18 17:16 25 MG Insulin Detemir (Levemir Insulin) 18 units BID SC 07/28/18 21:00 08/09/18 21:25 18 UNITS Insulin Human Lispro (HumaLOG INSULIN) SEE PROTOCOL TABLE QHS SC 07/28/18 21:00 08/09/18 21:25 2 UNITS Isosorbide Mononitrate (Imdur) 30 mg DAILY PO 07/31/18 09:00 08/07/18 08:18 30 MG Meclizine HCl (Antivert) 12.5 mg TID PO 08/05/18 16:00 08/09/18 21:24 12.5 MG Omeprazole (PriLOSEC) 20 mg DAILY PO 07/29/18 09:00 08/09/18 07:58 20 MG Ondansetron HCl (ZOFRAN INJection) 4 mg Q6HP PRN IV NAUSEA OR VOMITING 08/05/18 05:45 08/05/18 05:50 4 MG Pravastatin Sodium (Pravachol) 40 mg QHS PO 07/28/18 21:00 08/09/18 21:24 40 MG Psyllium Hydrophilic Mucilloid (Metamucil) 1 pkt BID PO 08/03/18 21:00 08/08/18 20:48 1 PKT Problems (1) CVA (cerebral vascular accident) -ischemic type to right Kayleen with left extremity weakness New extension in small area adjacent to previous stroke (2) Diastolic CHF, acute on chronic -Reduce Lasix to 60 mg daily -Continue strict input output and other guideline directed medical management of heart failure (3) GERD (gastroesophageal reflux disease) -continue aspiration precautions -continue PPI (4) Diabetes mellitus type 2, insulin dependent Chronic -diabetic diet -fingerstick checks prior to meals and at bedtime -coverage with insulin per sliding scale protocol (5) Hypertension Nephro on board to adjust BP meds for uncontrolled HTN work up ongoing for possible RA stenosis, bilateral -continue on hydralazine, imdur, norvasc -monitoring per unit protocol -adjust medications and doses for target blood pressure systolic <140 (6) CAD (coronary artery disease) of bypass graft -control blood pressure -continue statin therapy, aspirin -treatment of underlying heart failure (7) DVT prophylaxis -heparin 5000 units Q8 (8) Postherpetic neuralgia -started on valtrex -discontinue trileptal (9) Renal artery stenosis -possible stenosis seen on U/S which was ordered for hard to control blood pressure -O/P follow up with cardiology for further evaluation and management (10) VRE (vancomycin resistant enterococcus) culture positive -patient reports incontinence which he has had for a while -ID has been consulted for VRE findings on culture. -urine culture was VRE negative april 2018 -follow ID recommendation for recommendations for management (11) Advance care planning -code status is DNR -disposistion to home when rehab completed VS,Fishbone, I+O VS, Fishbone, I+O Vital Signs Date Time Temp Pulse Resp B/P (MAP) Pulse Ox O2 Delivery O2 Flow Rate FiO2 08/09/18 06:00 98.3 82 17 168/80 (109) 99 2.0 I&O- Last 24 Hours up to 6 AM 08/09/18 06:00 Intake Total 420 ml Output Total 350 ml Balance 70 ml KIM RAYMOND MD Aug 09, 2018 07:25
[2018-08-09] MEDS: HumaLOG INSULIN (NovoLOG) PER UNIT SC SCH ×4 (07:56→21:25)
[2018-08-09] MEDS: LEVEMIR (INSULIN DETEMIR) 1 UNITS/0.01ML SC SCH ×2 (07:56→21:25)
[2018-08-09] MEDS: FUROSEMIDE 20 MG TAB PO SCH (07:57)
[2018-08-09] MEDS: guaiFENesin 200 MG TAB PO SCH ×2 (07:57→21:24)
[2018-08-09] MEDS: CLOPIDOGREL 75 MG TAB PO SCH (07:58)
[2018-08-09] MEDS: GABAPENTIN 100 MG CAP PO SCH ×2 (07:58→21:24)
[2018-08-09] MEDS: MECLIZINE 12.5 MG TAB PO SCH ×3 (07:58→21:24)
[2018-08-09] MEDS: OMEPRAZOLE 20 MG CAP PO SCH (07:58)
[2018-08-09] MEDS: **hydrALAZINE HCL** 25 MG TAB PO SCH ×3 (07:59→21:00)
[2018-08-09] MEDS: CARVedilol 6.25 MG TAB PO SCH ×2 (07:59→21:24)
[2018-08-09] MEDS: amLODIPine 5 MG TAB PO SCH (08:00)
[2018-08-09] MEDS: ISOSORBIDE MON. (IMDUR) 30 MG XR TAB PO SCH (08:00)
[2018-08-09] MEDS: CHLORHEXIDINE GLUCONATE 0.12 % 15ML UDC (PERIDEX ORAL RINSE) SSP SCH ×3 (08:01→21:24)
[2018-08-09] MEDS: METAMUCIL (PSYLLIUM) PACKET PO SCH ×2 (08:01→21:00)
[2018-08-09 09:33] LABS: ALBUMIN 2.8 GM/DL (3.2-5.2); BLOOD UREA NITROGEN 11 MG/DL (7-18); CALCIUM LEVEL 8.6 MG/DL (8.8-10.2); CARBON DIOXIDE LEVEL 33 MEQ/L (21-32); CHLORIDE LEVEL 98 MEQ/L (98-107); CREATININE FOR GFR 1.25 MG/DL (0.70-1.30); GLOMERULAR FILTRATION RATE > 60.0 (>42); GLUCOSE, FASTING 282 MG/DL (70-100); PHOSPHORUS LEVEL 3.4 MG/DL (2.5-4.9); POTASSIUM SERUM 4.2 MEQ/L (3.5-5.1); SODIUM LEVEL 139 MEQ/L (136-145)
--- NOTE | 2018-08-09 12:04 | IPN ---
DATE: 08/09/2018 Mr. Rosario is seen this morning. He is in the acute rehabilitation area. He is ambulating with the help of a walker. He denies any dizziness or lightheadedness. He has no dyspnea, chest pain, nausea or vomiting. He had multiple strokes due to which he is requiring rehabilitation. His blood pressure was difficult to control, and he is on multiple antihypertensive meds. Now his blood pressure has been between 140 and 160s most of the time. PHYSICAL EXAMINATION: Temperature 98.3 degrees Fahrenheit, heart rate 82 per minute and respiratory rate 18 per minute. Blood pressure 140/58 mmHg and oxygen saturation 99%. His head is atraumatic. Neck is supple and without jugular venous distention (JVD) or thyroid enlargement. Heart sounds are regular and lungs clear to auscultation. Abdomen is soft and nontender and bowel sounds are normal. Extremities have no cyanosis or clubbing. Neurologically, he is awake, alert and able to answer all questions and has been ambulating. He does not have any significant deficit from recent stroke. Today's labs show sodium 139, potassium 4.2, CO2 33, BUN 11 and creatinine 1.25. Glucose 282 and calcium 8.6. PROBLEMS: 1. Acute renal failure superimposed on chronic kidney disease. Kidney function has improved back to baseline and is stable. His electrolytes are within normal range and volume status is well-compensated. 2. Hypertension. Blood pressure has been reasonably well-controlled on current medications with hold parameters. We will continue with the same and no changes are being made today. 3. Congestive heart failure. His volume status is very well compensated on Lasix 60 mg daily, which will be continued. 4. Recurrent strokes. The patient is currently undergoing acute rehabilitation and making some progress. He does not seem to have any significant focal neurological deficit.
--- NOTE | 2018-08-09 16:40 | IPNPDOC ---
PM&R Progress Note DATE OF SERVICE: Aug 09, 2018 Shopping Investigator Progress Note Subjective: Patient reports he no longer has diarrhea and that he continues to have right ear burning, but his blurred vision is better. REVIEW OF SYSTEMS: The following is a completed review of systems and has been reviewed. Review of systems otherwise unremarkable. PAIN: Patient self reports no pain EYES: +intermittent right eye blurriness EARS, NOSE, & THROAT:+dysphagia CARDIOVASCULAR: denies chest pain or palpitations PULMONARY: Negative. Denies shortness of breath GASTROINTESTINAL: +diarrhea (improved) GENITOURINARY: Negative for dysuria or incontinence MUSCULOSKELETAL: LUE weakness NEUROLOGICAL: LUE weakness, peripheral neuropathy HEMATOLOGICAL: Negative SKIN: bilateral anterior guerin ulcers PSYCHIATRIC: Unremarkable All other review of systems found to be negative. PHYSICAL EXAMINATION: VITAL SIGNS: Please see below. GENERAL: Pleasant and cooperative. No acute distress. HEENT: PERRL. Extraocular movements intact. Clear conjunctiva CARDIOVASCULAR: Regular rate and rhythm. No murmurs, rubs, or gallops LUNGS: Clear to auscultation bilaterally. No wheezes. No rhonchi ABDOMEN: Soft, nontender, nondistended. Positive bowel sounds. Normal active patience wel sounds. NEUROLOGICAL: Alert and oriented times three. Cranial nerves II through XII grossly intact. Sensation to light touch diminished in stocking pattern in LE, intact in UE EXTREMITIES: 5\\5 strength bilateral upper extremities, mild pronator drift on the left. 5\\5 strength right lower extremity. 5/5 strength in left lower extremity. bilateral edema (-) Homans bilat SKIN: hyperpigmentation of caves with scattered dry ulcers bilat anterior shins and dorsum of D2 on the left ASSESSMENT: 68-year-old M with past medical history of CAD s/p CABG, diastolic CHF, stroke who presents status post right pontine stroke complicated by dysphagia and pneumonia. PLAN: 1. 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 Neuro: pmh 2 strokes in 2014 and recent right pontine stroke- c/u ASA 325mg daily and statin therapy- f/u outpatient neurology -episode of AMS with increased dizziness 07/30/18, CT negative for new stroke, repeat MRI also negative -episode of dizziness and elevated BP this 08/05/18 resolved with clonidone and meclizine- repeat CT negative, repeat MRi showing extension of previous right pontine stroke, "new small acute infarction in the right posterolateral leeanna" discussed case with neurlogy who recommends 72 hours of permissive BPs 140-160s, then goal for normotension- renal assisting with BP management, patient clinically stable today without new deficits -c/u standing meclizine 3. cardiac: pmh CAD s/p CABG, Aortic valve replacement, poorly controlled HTN and recent ECHO 07/24/18 showing grade 2 diastolic dysfunction- c/u diuretics and BP meds, adjust prn- medicine consulted to assist with management and lowered total daily dosing to 60mg, Area Operations Manager improving -HTN improving on hydralazine, Imdur, amlodipine, and carvedilol, -renal consulted to assist with BP management in setting of renal artery stenosis, recs appreciated -c/u fluid restrict to 1800cc and Lasix for CHF- medicine following -Renal US positive for renal artery stenosis will set up with cardiology for IR intervention upon discharge or defer to renal recs -c/u nocturnal 02 3. Resp: s/p recent aspiration pneumonia and currently off antibiotics, will monitor and obtain repeat CXR- encourage incentive spirometry and c/u breathing treatments and guaifenesin -CHlorohexidine mouth wash to protect against aspiration PNA 4. Endo: pmh dm with severe peripheral neuropathy- c/i ISS and adjust prn, will recommend diabetic shoes 5. GI ppx: prilosec, immodium prn for loose stools- c diff negative, improving -will defer GI scope for now for concern for esophageal dysmotility 6. DVT ppx: TEDs and heparin 7. SKin: joel-wrap bilat LE for edema 8. ID: Admission Ucx + for VRE, asymptomatic, no treatment ordered, ID recs appreciated - Facial Zoster- previosuly incomplete treatment, s/p course of Valtrex 1g TID x 7 days and steroid eye drop to prevent corneal scarring-discussed with medicine, patient's symptoms improving 9. Dispo: 08/13/18 to home Allergies Coded Allergies: No Known Allergies (Unverified , 07/19/18) Vital Signs Vital Signs Date Time Temp Pulse Resp B/P (MAP) Pulse Ox O2 Delivery O2 Flow Rate FiO2 08/09/18 16:00 142/68 6/10/19 14:00 97.6 82 18 94 08/09/18 06:00 2.0 Laboratory Data CBC/BMP Laboratory Tests 08/09/18 08:53 Anion Gap 8 Labs 24H Laboratory Tests 2 08/08/18 16:42: Bedside Glucose (Misc Panel) 192H 08/08/18 20:07: Bedside Glucose (Misc Panel) 276H 08/09/18 05:58: Bedside Glucose (Misc Panel) 220H 08/09/18 08:53: Blood Urea Nitrogen 11, Creatinine 1.25, Sodium Level 139, Potassium Level 4.2, Chloride Level 98, Carbon Dioxide Level 33H, Anion Gap 8, Glomerular Filtration Rate > 60.0, Calcium Level 8.6L, Phosphorus Level 3.4, Albumin 2.8L 08/09/18 11:02: Bedside Glucose (Misc Panel) 293H Current Medications Current Medications Current Medications Acetaminophen (Tylenol Tab) 650 mg Q4HP PRN PO MILD PAIN (PS 1-4) Last administered on 08/05/18 02:04; Start 07/28/18 at 18:45 Albuterol/ Ipratropium (Duoneb (Ipr 0.5mg/Alb 2.5mg)) 3 ml RTID NEB Last administered on 08/09/18 14:45; Start 07/29/18 at 20:00 Amlodipine Besylate (Norvasc) 5 mg BID PO Last administered on 08/06/18 07:44; Start 08/05/18 at 21:00; Stop 08/06/18 at 14:06; Status DC Amlodipine Besylate (Norvasc) 5 mg DAILY PO Last administered on 08/05/18 08:06; Start 08/01/18 at 09:00; Stop 08/05/18 at 12:18; Status DC Amlodipine Besylate (Norvasc) 5 mg DAILY PO Last administered on 08/07/18 08:17; Start 08/07/18 at 09:00 Aspirin (Aspirin) 325 mg DAILY PO Last administered on 08/05/18 08:03; Start 07/29/18 at 09:00; Stop 08/05/18 at 19:10; Status DC Carvedilol (COReg) 6.25 mg BID PO Last administered on 08/09/18 07:59; Start 07/30/18 at 12:00 Chlorhexidine Gluconate (Peridex Oral Rinse) 15 ml TID SSP Last administered on 08/09/18 16:08; Start 07/29/18 at 16:00 Clonidine HCl (Catapres) 0.1 mg QHS PO Last administered on 07/31/18 20:58; Start 07/29/18 at 21:00; Stop 08/01/18 at 14:22; Status DC Clopidogrel Bisulfate (PLAVix) 75 mg DAILY PO Last administered on 08/09/18 07:58; Start 08/06/18 at 09:00 Dextrose (Dextrose 50%) 25 ml ASDIRECTED PRN IV SEE LABEL COMMENTS; Start 07/28/18 at 18:45 Furosemide (Lasix) 40 mg BID@,17 PO Last administered on 08/03/18 16:22; Start 07/29/18 at 09:00; Stop 08/03/18 at 18:06; Status DC Furosemide (Lasix) 60 mg DAILY PO Last administered on 08/09/18 07:57; Start 08/04/18 at 09:00 Gabapentin (Neurontin) 100 mg BID PO Last administered on 08/09/18 07:58; Start 08/03/18 at 21:00 Gabapentin (Neurontin) 100 mg QID PO Last administered on 08/03/18 12:01; Start 07/28/18 at 21:00; Stop 08/03/18 at 13:00; Status DC Glucagon (Glucagon) 1 mg ASDIRECTED PRN SC SEE LABEL COMMENTS; Start 07/28/18 at 18:45 Glucose (Glucose) 16 GM ASDIRECTED PRN PO SEE LABEL COMMENTS; Start 07/28/18 at 18:45 Guaifenesin (Robitussin Tab) 400 mg BID PO Last administered on 08/09/18 07:57; Start 07/29/18 at 21:00 Heparin Sodium (Porcine) (Heparin) 5,000 units Q8H SC Last administered on 08/09/18 12:09; Start 07/28/18 at 22:00 Hydralazine HCl (Apresoline) 25 mg Q6HP PRN PO prn for >140 sBP Last administered on 07/29/18at 09:13; Start 07/28/18 at 18:45; Stop 07/29/18 at 10:44; Status DC Hydralazine HCl (Apresoline) 25 mg TID PO Last administered on 08/08/18at 17:16; Start 08/02/18 at 16:00 Hydralazine HCl (Apresoline) 50 mg Q6HP PRN PO prn for >140 sBP; Start 07/29/18 at 10:45; Stop 07/29/18 at 10:51; Status DC Hydralazine HCl (Apresoline) 50 mg Q6HP PRN PO prn for >140 sBP Last administered on 07/30/18at 10:57; Start 07/29/18 at 17:00; Stop 07/30/18 at 10:59; Status DC Hydralazine HCl (Apresoline) 50 mg TID PO Last administered on 08/02/18at 08:17; Start 07/30/18 at 16:00; Stop 08/02/18 at 10:42; Status DC Insulin Detemir (Levemir Insulin) 18 units BID SC Last administered on 08/09/18at 07:56; Start 07/28/18 at 21:00 Insulin Human Lispro (HumaLOG INSULIN) SEE PROTOCOL TABLE AC SC Last administered on 08/09/18at 12:10; Start 07/29/18 at 07:30 Insulin Human Lispro (HumaLOG INSULIN) SEE PROTOCOL TABLE QHS SC Last administered on 08/08/18at 20:51; Start 07/28/18 at 21:00 Isosorbide Mononitrate (Imdur) 30 mg DAILY PO Last administered on 08/07/18at 08:18; Start 07/31/18 at 09:00 Labetalol HCl (Normodyne, Trandate) 10 mg STAT STAT IV ; Start 08/05/18 at 10:18; Stop 08/05/18 at 10:19; Status Cancel Lisinopril (Prinivil) 20 mg BID PO Last administered on 07/31/18at 10:00; Start 07/29/18 at 21:00; Stop 07/31/18 at 11:53; Status DC Lisinopril (Prinivil) 20 mg DAILY PO Last administered on 07/29/18at 08:10; Start 07/29/18 at 09:00; Stop 07/29/18 at 10:44; Status DC Loperamide HCl (Imodium) 2 mg ASDIRECTED PRN PO DIARRHEA; Start 08/03/18 at 17:30 Meclizine HCl (Antivert) 12.5 mg QHS PO Last administered on 08/02/18at 21:09; Start 07/31/18 at 21:00; Stop 08/03/18 at 17:29; Status DC Meclizine HCl (Antivert) 12.5 mg TID PO Last administered on 07/31/18at 10:00; Start 07/30/18 at 09:00; Stop 07/31/18 at 11:24; Status DC Meclizine HCl (Antivert) 12.5 mg TID PO ; Start 08/05/18 at 09:00; Stop 08/05/18 at 10:08; Status DC Meclizine HCl (Antivert) 12.5 mg TID PO Last administered on 08/09/18at 16:08; Start 08/05/18 at 16:00 Metoprolol Tartrate (Lopressor) 50 mg BID PO Last administered on 08/01/18at 21:35; Start 07/28/18 at 21:00; Stop 08/02/18 at 10:51; Status DC Nitroglycerin (Nitrostat (1/ 150)) 0.4 mg Q5MP PRN SL CHEST PAIN; Start 07/28/18 at 18:45 Omeprazole (PriLOSEC) 20 mg DAILY PO ; Start 07/29/18 at 09:00; Stop 07/29/18 at 09:00; Status DC Omeprazole (PriLOSEC) 20 mg DAILY PO Last administered on 08/09/18at 07:58; Start 07/29/18 at 09:00 Ondansetron HCl (ZOFRAN INJection) 4 mg Q6HP PRN IV NAUSEA OR VOMITING Last administered on 08/05/18at 05:50; Start 08/05/18 at 05:45 Ondansetron HCl (Zofran) 4 mg Q6HP PRN PO NAUSEA Last administered on 07/30/18at 10:06; Start 07/28/18 at 18:45; Stop 08/05/18 at 05:33; Status DC Oxcarbazepine (Trileptal) 150 mg BID PO Last administered on 08/02/18 08:14; Start 07/31/18 at 21:00; Stop 08/02/18 at 10:44; Status DC Oxcarbazepine (Trileptal) 150 mg DAILY@2000 PO Last administered on 08/02/18 21:09; Start 08/02/18 at 20:00; Stop 08/03/18 at 18:06; Status DC Oxcarbazepine (Trileptal) 150 mg QAM PO Last administered on 07/31/18 10:04; Start 07/29/18 at 09:00; Stop 07/31/18 at 11:26; Status DC Oxcarbazepine (Trileptal) 300 mg QHS PO Last administered on 07/30/18 21:43; Start 07/28/18 at 21:00; Stop 07/31/18 at 11:26; Status DC Pantoprazole Sodium (Protonix) 40 mg QPM PO ; Start 07/29/18 at 21:00; Stop 07/29/18 at 21:00; Status DC Potassium Chloride (Micro-K Extencaps) 20 meq DAILY PO Last administered on 08/05/18 08:04; Start 07/29/18 at 09:00; Stop 08/05/18 at 12:20; Status DC Pravastatin Sodium (Pravachol) 40 mg QHS PO Last administered on 08/08/18 20:49; Start 07/28/18 at 21:00 Prednisolone Acetate (Predforte 1% Ophth Susp) 2 drop QID OD Last administered on 08/06/18 07:46; Start 08/03/18 at 14:15; Stop 08/06/18 at 11:19; Status DC Psyllium Hydrophilic Mucilloid (Metamucil) 1 pkt BID PO Last administered on 08/08/18 20:48; Start 08/03/18 at 21:00 Spironolactone (Aldactone) 12.5 mg DAILY PO Last administered on 08/06/18 07:45; Start 08/06/18 at 09:00; Stop 08/07/18 at 16:01; Status DC Valacyclovir HCl (Valtrex) 1,000 mg DAILY PO ; Start 08/03/18 at 15:00; Stop 08/03/18 at 15:26; Status DC Valacyclovir HCl (Valtrex) 1,000 mg TID PO Last administered on 08/06/18at 07:44; Start 08/03/18 at 16:00; Stop 08/06/18 at 11:19; Status DC KOFI REDMOND MD Aug 09, 2018 16:40
[2018-08-09] MEDS: PRAVASTATIN 20 MG TAB PO SCH (21:24)
[2018-08-10 02:00] VITALS: BP 140/69
[2018-08-10] MEDS: HEPARIN SOD (PORCINE) 5000 UNITS/ML VIAL SC SCH ×3 (05:35→21:10)
[2018-08-10 05:56] VITALS: BP 146/70
[2018-08-10 06:34] LABS: BASO # 0.1 10^3/uL (0.0-0.2); BASO % 0.7 % (0.0-1.0); EOS # 0.5 10^3/uL (0.0-0.50); EOS % 5.6 % (0.0-3.0); HEMATOCRIT 36.4 % (42.0-52.0); HEMOGLOBIN 12.1 g/dl (13.5-17.5); LYMPH # 0.9 10^3/uL (1.5-4.5); LYMPH % 10.3 % (24.0-44.0); MEAN CORPUSCULAR HEMOGLOBIN 31.3 pg (27.0-33.0); MEAN CORPUSCULAR HGB CONC 33.2 g/dl (32.0-36.5); MEAN CORPUSCULAR VOLUME 94.1 fl (80.0-96.0); MONO # 0.7 10^3/uL (0.0-0.8); MONO % 8.3 % (0.0-5.0); NEUTROPHILS # 6.6 10^3/uL (1.8-7.7); NEUTROPHILS % 74.2 % (36.0-66.0); PLATELET COUNT, AUTOMATED 338 10^3/uL (150-450); RED BLOOD COUNT 3.87 10^6/uL (4.30-6.10); WHITE BLOOD COUNT 8.8 10^3/uL (4.0-10.0)
[2018-08-10 07:00] LABS: CALCIUM LEVEL 8.4 MG/DL (8.8-10.2); CREATININE FOR GFR 1.33 MG/DL (0.70-1.30); GLOMERULAR FILTRATION RATE 56.6 (>42); POTASSIUM SERUM 3.9 MEQ/L (3.5-5.1)
[2018-08-10] MEDS: IPRATROPIUM 0.5MG/ALBUTEROL 2.5MG INH SOL UD 3ML (DUONEB)(J7620) NEB SCH ×3 (07:58→20:00)
[2018-08-10] MEDS: CHLORHEXIDINE GLUCONATE 0.12 % 15ML UDC (PERIDEX ORAL RINSE) SSP SCH ×3 (08:42→21:10)
[2018-08-10] MEDS: MECLIZINE 12.5 MG TAB PO SCH (08:43)
[2018-08-10] MEDS: guaiFENesin 200 MG TAB PO SCH ×2 (08:43→21:12)
[2018-08-10] MEDS: OMEPRAZOLE 20 MG CAP PO SCH (08:43)
[2018-08-10] MEDS: FUROSEMIDE 20 MG TAB PO SCH (08:43)
[2018-08-10] MEDS: GABAPENTIN 100 MG CAP PO SCH ×2 (08:43→21:12)
[2018-08-10] MEDS: amLODIPine 5 MG TAB PO SCH (08:44)
[2018-08-10] MEDS: **hydrALAZINE HCL** 25 MG TAB PO SCH ×3 (08:44→21:00)
[2018-08-10] MEDS: CLOPIDOGREL 75 MG TAB PO SCH (08:45)
[2018-08-10] MEDS: ISOSORBIDE MON. (IMDUR) 30 MG XR TAB PO SCH (08:45)
[2018-08-10] MEDS: HumaLOG INSULIN (NovoLOG) PER UNIT SC SCH ×4 (08:46→21:11)
[2018-08-10] MEDS: CARVedilol 6.25 MG TAB PO SCH ×2 (08:46→21:13)
[2018-08-10] MEDS: METAMUCIL (PSYLLIUM) PACKET PO SCH ×2 (08:47→21:00)
[2018-08-10] MEDS: LEVEMIR (INSULIN DETEMIR) 1 UNITS/0.01ML SC SCH ×2 (08:47→21:10)
[2018-08-10] MEDS ORDERED: OXYMETAZOLINE NASAL SPRAY (AFRIN) PRN (10:00)
[2018-08-10 14:00] VITALS: BP 154/74
[2018-08-10 14:12] LABS: 5HIAA 24HR URINE 1.1 mg/24 hr (0.0-14.9); 5HIAA TOTAL URINE 1.9 mg/L (Undefined)
--- NOTE | 2018-08-10 15:59 | NUR ---
Recommend continue pureed diet, continue honey thick liquids, medications in puree assist, allow ice chips w/ spoon, upright for all PO intake, OOB all meals. Continue oral care 3x/day. Continue dysphagia tx. Addendum: 08/10/[address] [facility] Amended: Links added.
--- NOTE | 2018-08-10 18:26 | IPNPDOC ---
PM&R Progress Note DATE OF SERVICE: Aug 10, 2018 Adult Education Manager Progress Note Subjective: Patient reports he wakes up feeling dizzy still and it's relieved by meclizine. he reports neck soreness as well and would like to trial a lidoderm patch. REVIEW OF SYSTEMS: The following is a completed review of systems and has been reviewed. Review of systems otherwise unremarkable. PAIN: Patient self reports no pain EYES: +intermittent right eye blurriness EARS, NOSE, & THROAT:+dysphagia CARDIOVASCULAR: denies chest pain or palpitations PULMONARY: Negative. Denies shortness of breath GASTROINTESTINAL: +diarrhea (improved) GENITOURINARY: Negative for dysuria or incontinence MUSCULOSKELETAL: LUE weakness NEUROLOGICAL: LUE weakness, peripheral neuropathy HEMATOLOGICAL: Negative SKIN: bilateral anterior guerin ulcers PSYCHIATRIC: Unremarkable All other review of systems found to be negative. PHYSICAL EXAMINATION: VITAL SIGNS: Please see below. GENERAL: Pleasant and cooperative. No acute distress. HEENT: PERRL. Extraocular movements intact. Clear conjunctiva CARDIOVASCULAR: Regular rate and rhythm. No murmurs, rubs, or gallops LUNGS: Clear to auscultation bilaterally. No wheezes. No rhonchi ABDOMEN: Soft, nontender, nondistended. Positive bowel sounds. Normal active bowel sounds. NEUROLOGICAL: Alert and oriented times three. Cranial nerves II through XII grossly intact. Sensation to light touch diminished in stocking pattern in LE, intact in UE EXTREMITIES: 5\\5 strength bilateral upper extremities, mild pronator drift on the left. 5\\5 strength right lower extremity. 5/5 strength in left lower extremity. bilateral edema (-) Homans bilat SKIN: hyperpigmentation of caves with scattered dry ulcers bilat anterior shins and dorsum of D2 on the left ASSESSMENT: 68-year-old M with past medical history of CAD s/p CABG, diastolic CHF, stroke who presents status post right pontine stroke complicated by dysphagia and pneumonia. PLAN: 1. 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 Neuro: pmh 2 strokes in 2015 and recent right pontine stroke- c/u ASA 325mg daily and statin therapy- f/u outpatient neurology -episode of AMS with increased dizziness 07/30/18, CT negative for new stroke, repeat MRI also negative -episode of dizziness and elevated BP this 08/05/18 resolved with clonidone and meclizine- repeat CT negative, repeat MRi showing extension of previous right pontine stroke, "new small acute infarction in the right posterolateral leeanna" discussed case with neurlogy who recommends 72 hours of permissive BPs 140-160s, then goal for normotension- renal assisting with BP management, patient clinically stable today without new deficits -will increase meclizine to 25mf TID for persistent intermittent dizziness 3. 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 Resp: s/p recent aspiration pneumonia and currently off antibiotics, will monitor and obtain repeat CXR- encourage incentive spirometry and c/u breathing treatments and guaifenesin -Chlorohexidine mouth wash to protect against aspiration PNA 4. Endo: pmh dm with severe peripheral neuropathy- c/i ISS and adjust prn, will recommend diabetic shoes 5. GI ppx: prilosec, immodium prn for loose stools- c diff negative, improving -will defer GI scope for now for concern for esophageal dysmotility 6. DVT ppx: TEDs and heparin 7. SKin: joel-wrap bilat LE for edema 8. ID: Admission Ucx + for VRE, asymptomatic, no treatment ordered, ID recs appreciated - Facial Zoster- previosuly incomplete treatment, s/p course of Valtrex 1g TID x 7 days and steroid eye drop to prevent corneal scarring-discussed with medicine, patient's symptoms improving 9. Dispo: 08/13/18 to home Allergies Coded Allergies: No Known Allergies (Unverified , 07/19/18) Vital Signs Vital Signs Date Time Temp Pulse Resp B/P (MAP) Pulse Ox O2 Delivery O2 Flow Rate FiO2 08/10/18 16:00 150/72 08/10/18 08:46 93 08/10/18 05:56 97.4 20 95 08/10/18 02:00 2.0 Laboratory Data CBC/BMP Laboratory Tests 08/10/18 05:50 Red Blood Count 3.87 L, Mean Corpuscular Volume 94.1, Mean Corpuscular Hemoglobin 31.3, Mean Corpuscular Hemoglobin Concent 33.2, Red Cell Distribution Width 13.9, Neutrophils (%) (Auto) 74.2 H, Lymphocytes (%) (Auto) 10.3 L, Rolette cytes (%) (Auto) 8.3 H, Eosinophils (%) (Auto) 5.6 H, Basophils (%) (Auto) 0.7, Neutrophils # (Auto) 6.6, Lymphocytes # (Auto) 0.9 L, Monocytes # (Auto) 0.7, Eosinophils # (Auto) 0.5, Basophils # (Auto) 0.1 08/10/18 05:51 Calcium Level 8.4 L Labs 24H Laboratory Tests 2 08/09/18 20:11: Bedside Glucose (Misc Panel) 259H 08/10/18 05:50: Immature Granulocyte % (Auto) 0.9, White Blood Count 8.8, Red Blood Count 3.87L, Hemoglobin 12.1L, Hematocrit 36.4L, Mean Corpuscular Volume 94.1, Mean Corpuscular Hemoglobin 31.3, Mean Corpuscular Hemoglobin Concent 33.2, Red Cell Distribution Width 13.9, Platelet Count 338, Neutrophils (%) (Auto) 74.2H, Lymphocytes (%) (Auto) 10.3L, Monocytes (%) (Auto) 8.3H, Eosinophils (%) (Auto) 5.6H, Basophils (%) (Auto) 0.7, Neutrophils # (Auto) 6.6, Lymphocytes # (Auto) 0.9L, Monocytes # (Auto) 0.7, Eosinophils # (Auto) 0.5, Basophils # (Auto) 0.1, Nucleated Red Blood Cells % (auto) 0.0 08/10/18 05:51: Anion Gap 7L, Glomerular Filtration Rate 56.6, Blood Urea Nitrogen 13, Creatinine 1.33H, Sodium Level 138, Potassium Level 3.9, Chloride Level 99, Carbon Dioxide Level 32, Calcium Level 8.4L 08/10/18 12:14: Bedside Glucose (Misc Panel) 308H 08/10/18 16:59: Bedside Glucose (Misc Panel) 204H Current Medications Current Medications Current Medications Acetaminophen (Tylenol Tab) 650 mg Q4HP PRN PO MILD PAIN (PS 1-4) Last administered on 08/05/18 02:04; Start 07/28/18 at 18:45 Albuterol/ Ipratropium (Duoneb (Ipr 0.5mg/Alb 2.5mg)) 3 ml RTID NEB Last administered on 08/10/18 13:40; Start 07/29/18 at 20:00 Amlodipine Besylate (Norvasc) 5 mg BID PO Last administered on 08/06/18 07:44; Start 08/05/18 at 21:00; Stop 08/06/18 at 14:06; Status DC Amlodipine Besylate (Norvasc) 5 mg DAILY PO Last administered on 08/05/18 08:06; Start 08/01/18 at 09:00; Stop 08/05/18 at 12:18; Status DC Amlodipine Besylate (Norvasc) 5 mg DAILY PO Last administered on 08/07/18 08:17; Start 08/07/18 at 09:00 Aspirin (Aspirin) 325 mg DAILY PO Last administered on 08/05/18 08:03; Start 07/29/18 at 09:00; Stop 08/05/18 at 19:10; Status DC Carvedilol (COReg) 6.25 mg BID PO Last administered on 08/10/18 08:46; Start 07/30/18 at 12:00 Chlorhexidine Gluconate (Peridex Oral Rinse) 15 ml TID SSP Last administered on 08/10/18 17:15; Start 07/29/18 at 16:00 Clonidine HCl (Catapres) 0.1 mg QHS PO Last administered on 07/31/18 20:58; Start 07/29/18 at 21:00; Stop 08/01/18 at 14:22; Status DC Clopidogrel Bisulfate (PLAVix) 75 mg DAILY PO Last administered on 08/10/18 08:45; Start 08/06/18 at 09:00 Dextrose (Dextrose 50%) 25 ml ASDIRECTED PRN IV SEE LABEL COMMENTS; Start 07/28/18 at 18:45 Furosemide (Lasix) 40 mg BID@,17 PO Last administered on 08/03/18at 16:22; Start 07/29/18 at 09:00; Stop 08/03/18 at 18:06; Status DC Furosemide (Lasix) 60 mg DAILY PO Last administered on 08/10/18at 08:43; Start 08/04/18 at 09:00 Gabapentin (Neurontin) 100 mg BID PO Last administered on 08/10/18 08:43; Start 08/03/18 at 21:00 Gabapentin (Neurontin) 100 mg QID PO Last administered on 08/03/18at 12:01; Start 07/28/18 at 21:00; Stop 08/03/18 at 13:00; Status DC Glucagon (Glucagon) 1 mg ASDIRECTED PRN SC SEE LABEL COMMENTS; Start 07/28/18 at 18:45 Glucose (Glucose) 16 GM ASDIRECTED PRN PO SEE LABEL COMMENTS; Start 07/28/18 at 18:45 Guaifenesin (Robitussin Tab) 400 mg BID PO Last administered on 08/10/18at 08:43; Start 07/29/18 at 21:00 Heparin Sodium (Porcine) (Heparin) 5,000 units Q8H SC Last administered on 08/10/18at 12:48; Start 07/28/18 at 22:00 Hydralazine HCl (Apresoline) 25 mg Q6HP PRN PO prn for >140 sBP Last administered on 07/29/18at 09:13; Start 07/28/18 at 18:45; Stop 07/29/18 at 10:44; Status DC Hydralazine HCl (Apresoline) 25 mg TID PO Last administered on 08/08/18at 17:16; Start 08/02/18 at 16:00 Hydralazine HCl (Apresoline) 50 mg Q6HP PRN PO prn for >140 sBP; Start 07/29/18 at 10:45; Stop 07/29/18 at 10:51; Status DC Hydralazine HCl (Apresoline) 50 mg Q6HP PRN PO prn for >140 sBP Last administered on 07/30/18at 10:57; Start 07/29/18 at 17:00; Stop 07/30/18 at 10:59; Status DC Hydralazine HCl (Apresoline) 50 mg TID PO Last administered on 08/02/18at 08:17; Start 07/30/18 at 16:00; Stop 08/02/18 at 10:42; Status DC Insulin Detemir (Levemir Insulin) 18 units BID SC Last administered on 08/10/18at 08:47; Start 07/28/18 at 21:00 Insulin Human Lispro (HumaLOG INSULIN) SEE PROTOCOL TABLE AC SC Last administered on 08/10/18at 17:15; Start 07/29/18 at 07:30 Insulin Human Lispro (HumaLOG INSULIN) SEE PROTOCOL TABLE QHS SC Last administered on 08/09/18at 21:25; Start 07/28/18 at 21:00 Isosorbide Mononitrate (Imdur) 30 mg DAILY PO Last administered on 08/07/18at 08:18; Start 07/31/18 at 09:00 Labetalol HCl (Normodyne, Trandate) 10 mg STAT STAT IV ; Start 08/05/18 at 10:18; Stop 08/05/18 at 10:19; Status Cancel Lidocaine (Lidoderm Patch) 1 patch QHS TD ; Start 08/10/18 at 21:00 Lisinopril (Prinivil) 20 mg BID PO Last administered on 07/31/18at 10:00; Start 07/29/18 at 21:00; Stop 07/31/18 at 11:53; Status DC Lisinopril (Prinivil) 20 mg DAILY PO Last administered on 07/29/18at 08:10; Start 07/29/18 at 09:00; Stop 07/29/18 at 10:44; Status DC Loperamide HCl (Imodium) 2 mg ASDIRECTED PRN PO DIARRHEA; Start 08/03/18 at 17:30 Meclizine HCl (Antivert) 12.5 mg QHS PO Last administered on 08/02/18at 21:09; Start 07/31/18 at 21:00; Stop 08/03/18 at 17:29; Status DC Meclizine HCl (Antivert) 12.5 mg TID PO Last administered on 07/31/18at 10:00; Start 07/30/18 at 09:00; Stop 07/31/18 at 11:24; Status DC Meclizine HCl (Antivert) 12.5 mg TID PO ; Start 08/05/18 at 09:00; Stop 08/05/18 at 10:08; Status DC Meclizine HCl (Antivert) 12.5 mg TID PO Last administered on 08/10/18at 08:43; Start 08/05/18 at 16:00; Stop 08/10/18 at 17:13; Status DC Meclizine HCl (Antivert) 25 mg TID PO ; Start 08/10/18 at 21:00 Metoprolol Tartrate (Lopressor) 50 mg BID PO Last administered on 08/01/18at 21:35; Start 07/28/18 at 21:00; Stop 08/02/18 at 10:51; Status DC Nitroglycerin (Nitrostat (1/ 150)) 0.4 mg Q5MP PRN SL CHEST PAIN; Start 07/28/18 at 18:45 Non-Formulary Medication ( See Comment Field Below ) REMOVE LIDODERM PATCH DAILY XX ; Start 08/11/18 at 09:00 Omeprazole (PriLOSEC) 20 mg DAILY PO ; Start 07/29/18 at 09:00; Stop 07/29/18 at 09:00; Status DC Omeprazole (PriLOSEC) 20 mg DAILY PO Last administered on 08/10/18at 08:43; Start 07/29/18 at 09:00 Ondansetron HCl (ZOFRAN INJection) 4 mg Q6HP PRN IV NAUSEA OR VOMITING Last administered on 08/05/18at 05:50; Start 08/05/18 at 05:45 Ondansetron HCl (Zofran) 4 mg Q6HP PRN PO NAUSEA Last administered on 07/30/18at 10:06; Start 07/28/18 at 18:45; Stop 08/05/18 at 05:33; Status DC Oxcarbazepine (Trileptal) 150 mg BID PO Last administered on 08/02/18at 08:14; Start 07/31/18 at 21:00; Stop 08/02/18 at 10:44; Status DC Oxcarbazepine (Trileptal) 150 mg DAILY@2000 PO Last administered on 08/02/18 21:09; Start 08/02/18 at 20:00; Stop 08/03/18 at 18:06; Status DC Oxcarbazepine (Trileptal) 150 mg QAM PO Last administered on 07/31/18at 10:04; Start 07/29/18 at 09:00; Stop 07/31/18 at 11:26; Status DC Oxcarbazepine (Trileptal) 300 mg QHS PO Last administered on 07/30/18at 21:43; Start 07/28/18 at 21:00; Stop 07/31/18 at 11:26; Status DC Oxymetazoline HCl (Afrin) 2 spray ONCE PRN NA DISCOMFORT (SEE LABEL COMMENTS; Start 08/10/18 at 10:00 Pantoprazole Sodium (Protonix) 40 mg QPM PO ; Start 07/29/18 at 21:00; Stop 07/29/18 at 21:00; Status DC Potassium Chloride (Micro-K Extencaps) 20 meq DAILY PO Last administered on 08/05/18at 08:04; Start 07/29/18 at 09:00; Stop 08/05/18 at 12:20; Status DC Pravastatin Sodium (Pravachol) 40 mg QHS PO Last administered on 08/09/18at 21:24; Start 07/28/18 at 21:00 Prednisolone Acetate (Predforte 1% Ophth Susp) 2 drop QID OD Last administered on 08/06/18at 07:46; Start 08/03/18 at 14:15; Stop 08/06/18 at 11:19; Status DC Psyllium Hydrophilic Mucilloid (Metamucil) 1 pkt BID PO Last administered on 08/08/18at 20:48; Start 08/03/18 at 21:00 Spironolactone (Aldactone) 12.5 mg DAILY PO Last administered on 08/06/18at 07:45; Start 08/06/18 at 09:00; Stop 08/07/18 at 16:01; Status DC Valacyclovir HCl (Valtrex) 1,000 mg DAILY PO ; Start 08/03/18 at 15:00; Stop 08/03/18 at 15:26; Status DC Valacyclovir HCl (Valtrex) 1,000 mg TID PO Last administered on 08/06/18at 07:44; Start 08/03/18 at 16:00; Stop 08/06/18 at 11:19; Status DC KOFI REDMOND MD Aug 10, 2018 18:26
[2018-08-10] MEDS: MECLIZINE 25 MG TABLET PO SCH (21:11)
[2018-08-10] MEDS: PRAVASTATIN 20 MG TAB PO SCH (21:12)
[2018-08-10] MEDS: LIDOCAINE 5% (LIDODERM) PATCH TD SCH (21:16)
--- NOTE | 2018-08-10 21:26 | IPN ---
DATE: 08/10/2018 Mr. Rosario is seen this morning on his bedside. He is sitting in the chair at the time of my visit. He is feeling well and anticipating going home at the end of this week. He denies any dyspnea, chest pain, nausea or vomiting. His blood pressure has been very well controlled between 140s and 150s. PHYSICAL EXAMINATION: Temperature 97.8 degrees Fahrenheit, heart rate 92 per minute and respiratory rate 18 per minute. Blood pressure 154/74 mmHg and oxygen saturation 98% on room air. His head is atraumatic. Neck is supple and without jugular venous distention (JVD) or thyroid enlargement. Heart sounds are regular and lungs clear to auscultation. Abdomen: Soft and nontender. Bowel sounds are normal. Extremities: Without any cyanosis or clubbing. Today's labs show WBC count 8.8, hemoglobin 12.1 and hematocrit 36.4. Sodium 138, potassium 3.9, CO2 of 32, BUN 13 and creatinine 1.33. PROBLEMS: 1. Acute on chronic kidney disease. Kidney function is relatively stable with mild fluctuations. This is about his baseline with creatinine between 1.2 and 1.4. He is suspected to have bilateral renal artery stenosis with recurrent acute renal failure. We will consider getting an angiogram as an outpatient in the near future. At this point, his renal function is stable and no changes are being made today. 2. Hypertension. Blood pressure is very well controlled on current antihypertensive medications, which should be continued. No changes are being made today. 3. Recurrent strokes and weakness. The patient is improving and has been ambulating with the help of a walker. He is anticipating going home at the end of this week.
[2018-08-10 22:00] VITALS: BP 168/79
[2018-08-11 03:00] VITALS: BP 160/78
[2018-08-11] MEDS: HEPARIN SOD (PORCINE) 5000 UNITS/ML VIAL SC SCH ×3 (05:38→21:22)
[2018-08-11 06:00] VITALS: BP 162/72
[2018-08-11] MEDS: HumaLOG INSULIN (NovoLOG) PER UNIT SC SCH ×4 (08:06→21:22)
[2018-08-11] MEDS: LEVEMIR (INSULIN DETEMIR) 1 UNITS/0.01ML SC SCH ×2 (08:06→21:21)
[2018-08-11] MEDS: CHLORHEXIDINE GLUCONATE 0.12 % 15ML UDC (PERIDEX ORAL RINSE) SSP SCH ×3 (08:06→21:21)
[2018-08-11] MEDS: OMEPRAZOLE 20 MG CAP PO SCH (08:08)
[2018-08-11] MEDS: guaiFENesin 200 MG TAB PO SCH ×2 (08:08→21:20)
[2018-08-11] MEDS: ISOSORBIDE MON. (IMDUR) 30 MG XR TAB PO SCH (08:08)
[2018-08-11] MEDS: CLOPIDOGREL 75 MG TAB PO SCH (08:08)
[2018-08-11] MEDS: amLODIPine 5 MG TAB PO SCH (08:09)
[2018-08-11] MEDS: CARVedilol 6.25 MG TAB PO SCH ×2 (08:10→21:21)
[2018-08-11] MEDS: MECLIZINE 25 MG TABLET PO SCH ×3 (08:10→21:20)
[2018-08-11] MEDS: GABAPENTIN 100 MG CAP PO SCH ×2 (08:10→21:21)
[2018-08-11] MEDS: **hydrALAZINE HCL** 25 MG TAB PO SCH ×3 (08:10→20:03)
[2018-08-11] MEDS: FUROSEMIDE 20 MG TAB PO SCH (08:10)
[2018-08-11] MEDS: METAMUCIL (PSYLLIUM) PACKET PO SCH ×2 (08:11→20:04)
[2018-08-11] MEDS: **NOTE PATIENT COMMENT** MISC XX SCH (08:11)
[2018-08-11] MEDS: IPRATROPIUM 0.5MG/ALBUTEROL 2.5MG INH SOL UD 3ML (DUONEB)(J7620) NEB SCH ×3 (08:20→19:47)
[2018-08-11 10:00] VITALS: BP 159/78
--- NOTE | 2018-08-11 11:08 | IPNPDOC ---
PM&R Progress Note DATE OF SERVICE: Aug 11, 2018 Generation [employer] Progress Note Subjective: Patient reports he did not wake up feeling dizzy since starting the higher dose of meclizine. He is eager to go home soon. REVIEW OF SYSTEMS: The following is a completed review of systems and has been reviewed. Review of systems otherwise unremarkable. PAIN: Patient self reports no pain EYES: +intermittent right eye blurriness EARS, NOSE, & THROAT:+dysphagia CARDIOVASCULAR: denies chest pain or palpitations PULMONARY: Negative. Denies shortness of breath GASTROINTESTINAL: +diarrhea (improved) GENITOURINARY: Negative for dysuria or incontinence MUSCULOSKELETAL: LUE weakness NEUROLOGICAL: LUE weakness, peripheral neuropathy, intermittent dizziness HEMATOLOGICAL: Negative SKIN: bilateral anterior guerin ulcers PSYCHIATRIC: Unremarkable All other review of systems found to be negative. PHYSICAL EXAMINATION: VITAL SIGNS: Please see below. GENERAL: Pleasant and cooperative. No acute distress. HEENT: PERRL. Extraocular movements intact. Clear conjunctiva CARDIOVASCULAR: Regular rate and rhythm. No murmurs, rubs, or gallops LUNGS: Clear to auscultation bilaterally. No wheezes. No rhonchi ABDOMEN: Soft, nontender, nondistended. Positive bowel sounds. Normal active bowel sounds. NEUROLOGICAL: Alert and oriented times three. Cranial nerves II through XII grossly intact. Sensation to light touch diminished in stocking pattern in LE, intact in UE EXTREMITIES: 5\\5 strength bilateral upper extremities, mild pronator drift on the left. 5\\5 strength right lower extremity. 5/5 strength in left lower extremity. bilateral edema (-) Homans bilat SKIN: hyperpigmentation of caves with scattered dry ulcers bilat anterior shins and dorsum of D2 on the left ASSESSMENT: 68-year-old M with past medical history of CAD s/p CABG, diastolic CHF, stroke who presents status post right pontine stroke complicated by dysphagia and pneumonia. PLAN: 1. 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 Neuro: pmh 2 strokes in 2015 and recent right pontine stroke- c/u ASA 325mg daily and statin therapy- f/u outpatient neurology -episode of AMS with increased dizziness 07/30/18, CT negative for new stroke, repeat MRI also negative -episode of dizziness and elevated BP this 08/05/18, repeat CT negative, repeat MRi showing extension of previous right pontine stroke, "new small acute infarction in the right posterolateral leeanna", patient c/us to be clinically stable new deficits, BP better controlled -c/u meclizine to 25mg TID for persistent intermittent dizziness-improving 3. 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 Resp: s/p recent aspiration pneumonia and currently off antibiotics, will monitor and obtain repeat CXR- encourage incentive spirometry and c/u breathing treatments and guaifenesin -Chlorohexidine mouth wash to protect against aspiration PNA-stable improving cough and no leukocytosis 4. Endo: pmh dm with severe peripheral neuropathy- c/i ISS and adjust prn, will recommend diabetic shoes 5. GI ppx: prilosec, immodium prn for loose stools- c diff negative, improving -will defer GI scope for now for concern for esophageal dysmotility 6. DVT ppx: TEDs and heparin 7. SKin: joel-wrap bilat LE for edema 8. ID: Admission Ucx + for VRE, asymptomatic, no treatment ordered, ID recs appreciated - Facial Zoster- previously incomplete treatment, s/p course of Valtrex 1g TID x 7 days and steroid eye drop to prevent corneal scarring-discussed with medicine, patient's symptoms improving 9. Dispo: 08/13/18 to home Allergies Coded Allergies: No Known Allergies (Unverified , 07/19/18) Vital Signs Vital Signs Date Time Temp Pulse Resp B/P (MAP) Pulse Ox O2 Delivery O2 Flow Rate FiO2 08/11/18 10:00 98.4 85 20 159/78 (105) 92 08/10/18 02:00 2.0 Laboratory Data Labs 24H Laboratory Tests 2 08/10/18 12:14: Bedside Glucose (Misc Panel) 308H 08/10/18 16:59: Bedside Glucose (Misc Panel) 204H 08/10/18 19:53: Bedside Glucose (Misc Panel) 253H 08/11/18 06:35: Bedside Glucose (Misc Panel) 251H Current Medications Current Medications Current Medications Acetaminophen (Tylenol Tab) 650 mg Q4HP PRN PO MILD PAIN (PS 1-4) Last admin istered on 08/05/18 02:04; Start 07/28/18 at 18:45 Albuterol/ Ipratropium (Duoneb (Ipr 0.5mg/Alb 2.5mg)) 3 ml RTID NEB Last adm inistered on 08/11/18 08:20; Start 07/29/18 at 20:00 Amlodipine Besylate (Norvasc) 5 mg BID PO Last administered on 08/06/18 07:44; Start 08/05/18 at 21:00; Stop 08/06/18 at 14:06; Status DC Amlodipine Besylate (Norvasc) 5 mg DAILY PO ; Start 08/12/18 at 09:00 Amlodipine Besylate (Norvasc) 5 mg DAILY PO Last administered on 08/05/18 08:06; Start 08/01/18 at 09:00; Stop 08/05/18 at 12:18; Status DC Amlodipine Besylate (Norvasc) 5 mg DAILY PO Last administered on 08/11/18 08:09; Start 08/07/18 at 09:00; Stop 08/11/18 at 10:02; Status DC Aspirin (Aspirin) 325 mg DAILY PO Last administered on 08/05/18 08:03; Start 07/29/18 at 09:00; Stop 08/05/18 at 19:10; Status DC Carvedilol (COReg) 6.25 mg BID PO Last administered on 08/11/18 08:10; Start 07/30/18 at 12:00 Chlorhexidine Gluconate (Peridex Oral Rinse) 15 ml TID SSP Last administered on 08/11/18 08:06; Start 07/29/18 at 16:00 Clonidine HCl (Catapres) 0.1 mg QHS PO Last administered on 07/31/18 20:58; Start 07/29/18 at 21:00; Stop 08/01/18 at 14:22; Status DC Clopidogrel Bisulfate (PLAVix) 75 mg DAILY PO Last administered on 08/11/18 08:08; Start 08/06/18 at 09:00 Dextrose (Dextrose 50%) 25 ml ASDIRECTED PRN IV SEE LABEL COMMENTS; Start 07/28/18 at 18:45 Furosemide (Lasix) 40 mg BID@,17 PO Last administered on 08/03/18 16:22; Start 07/29/18 at 09:00; Stop 08/03/18 at 18:06; Status DC Furosemide (Lasix) 60 mg DAILY PO Last administered on 08/11/18 08:10; Start 08/04/18 at 09:00 Gabapentin (Neurontin) 100 mg BID PO Last administered on 08/11/18 08:10; Start 08/03/18 at 21:00 Gabapentin (Neurontin) 100 mg QID PO Last administered on 08/03/18 12:01; Start 07/28/18 at 21:00; Stop 08/03/18 at 13:00; Status DC Glucagon (Glucagon) 1 mg ASDIRECTED PRN SC SEE LABEL COMMENTS; Start 07/28/18 at 18:45 Glucose (Glucose) 16 GM ASDIRECTED PRN PO SEE LABEL COMMENTS; Start 07/28/18 at 18:45 Guaifenesin (Robitussin Tab) 400 mg BID PO Last administered on 08/11/18 08:08; Start 07/29/18 at 21:00 Heparin Sodium (Porcine) (Heparin) 5,000 units Q8H SC Last administered on 08/11/18 05:38; Start 07/28/18 at 22:00 Hydralazine HCl (Apresoline) 25 mg Q6HP PRN PO prn for >140 sBP Last administered on 07/29/18 09:13; Start 07/28/18 at 18:45; Stop 07/29/18 at 10:44; Status DC Hydralazine HCl (Apresoline) 25 mg TID PO Last administered on 6/9/19at 17:16; Start 08/02/18 at 16:00 Hydralazine HCl (Apresoline) 50 mg Q6HP PRN PO prn for >140 sBP; Start 07/29/18 at 10:45; Stop 07/29/18 at 10:51; Status DC Hydralazine HCl (Apresoline) 50 mg Q6HP PRN PO prn for >140 sBP Last admin istered on 07/30/18at 10:57; Start 07/29/18 at 17:00; Stop 07/30/18 at 10:59; Status DC Hydralazine HCl (Apresoline) 50 mg TID PO Last administered on 08/02/18at 08:17; Start 07/30/18 at 16:00; Stop 08/02/18 at 10:42; Status DC Insulin Detemir (Levemir Insulin) 18 units BID SC Last administered on 08/11/18at 08:06; Start 07/28/18 at 21:00; Stop 08/11/18 at 10:02; Status DC Insulin Detemir (Levemir Insulin) 22 units BID SC ; Start 08/11/18 at 21:00 Insulin Human Lispro (HumaLOG INSULIN) SEE PROTOCOL TABLE AC SC Last administered on 08/11/18at 08:06; Start 07/29/18 at 07:30 Insulin Human Lispro (HumaLOG INSULIN) SEE PROTOCOL TABLE QHS SC Last administered on 08/10/18at 21:11; Start 07/28/18 at 21:00 Isosorbide Mononitrate (Imdur) 30 mg DAILY PO Last administered on 08/07/18at 08:18; Start 07/31/18 at 09:00 Labetalol HCl (Normodyne, Trandate) 10 mg STAT STAT IV ; Start 08/05/18 at 10:18; Stop 08/05/18 at 10:19; Status Cancel Lidocaine (Lidoderm Patch) 1 patch QHS TD Last administered on 08/10/18at 21:16; Start 08/10/18 at 21:00 Lisinopril (Prinivil) 20 mg BID PO Last administered on 07/31/18at 10:00; Start 07/29/18 at 21:00; Stop 07/31/18 at 11:53; Status DC Lisinopril (Prinivil) 20 mg DAILY PO Last administered on 07/29/18at 08:10; Start 07/29/18 at 09:00; Stop 07/29/18 at 10:44; Status DC Loperamide HCl (Imodium) 2 mg ASDIRECTED PRN PO DIARRHEA; Start 08/03/18 at 17:30 Meclizine HCl (Antivert) 12.5 mg QHS PO Last administered on 08/02/18at 21:09; Start 07/31/18 at 21:00; Stop 08/03/18 at 17:29; Status DC Meclizine HCl (Antivert) 12.5 mg TID PO Last administered on 07/31/18at 10:00; Start 07/30/18 at 09:00; Stop 07/31/18 at 11:24; Status DC Meclizine HCl (Antivert) 12.5 mg TID PO ; Start 08/05/18 at 09:00; Stop 08/05/18 at 10:08; Status DC Meclizine HCl (Antivert) 12.5 mg TID PO Last administered on 08/10/18at 08:43; Start 08/05/18 at 16:00; Stop 08/10/18 at 17:13; Status DC Meclizine HCl (Antivert) 25 mg TID PO Last administered on 08/11/18at 08:10; Start 08/10/18 at 21:00 Metoprolol Tartrate (Lopressor) 50 mg BID PO Last administered on 08/01/18at 21:35; Start 07/28/18 at 21:00; Stop 08/02/18 at 10:51; Status DC Nitroglycerin (Nitrostat (1/ 150)) 0.4 mg Q5MP PRN SL CHEST PAIN; Start 07/28/18 at 18:45 Non-Formulary Medication ( See Comment Field Below ) REMOVE LIDODERM PATCH DAILY XX Last administered on 08/11/18at 08:11; Start 08/11/18 at 09:00 Omeprazole (PriLOSEC) 20 mg DAILY PO ; Start 07/29/18 at 09:00; Stop 07/29/18 at 09:00; Status DC Omeprazole (PriLOSEC) 20 mg DAILY PO Last administered on 08/11/18at 08:08; Start 07/29/18 at 09:00 Ondansetron HCl (ZOFRAN INJection) 4 mg Q6HP PRN IV NAUSEA OR VOMITING Last administered on 08/05/18at 05:50; Start 08/05/18 at 05:45 Ondansetron HCl (Zofran) 4 mg Q6HP PRN PO NAUSEA Last administered on 07/30/18 10:06; Start 07/28/18 at 18:45; Stop 08/05/18 at 05:33; Status DC Oxcarbazepine (Trileptal) 150 mg BID PO Last administered on 08/02/18 08:14; Start 07/31/18 at 21:00; Stop 08/02/18 at 10:44; Status DC Oxcarbazepine (Trileptal) 150 mg DAILY@2000 PO Last administered on 08/02/18 21:09; Start 08/02/18 at 20:00; Stop 08/03/18 at 18:06; Status DC Oxcarbazepine (Trileptal) 150 mg QAM PO Last administered on 07/31/18at 10:04; Start 07/29/18 at 09:00; Stop 07/31/18 at 11:26; Status DC Oxcarbazepine (Trileptal) 300 mg QHS PO Last administered on 07/30/18at 21:43; Start 07/28/18 at 21:00; Stop 07/31/18 at 11:26; Status DC Oxymetazoline HCl (Afrin) 2 spray ONCE PRN NA DISCOMFORT (SEE LABEL COMMENTS; Start 08/10/18 at 10:00 Pantoprazole Sodium (Protonix) 40 mg QPM PO ; Start 07/29/18 at 21:00; Stop 07/29/18 at 21:00; Status DC Potassium Chloride (Micro-K Extencaps) 20 meq DAILY PO Last administered on 08/05/18at 08:04; Start 07/29/18 at 09:00; Stop 08/05/18 at 12:20; Status DC Pravastatin Sodium (Pravachol) 40 mg QHS PO Last administered on 08/10/18at 21:12; Start 07/28/18 at 21:00 Prednisolone Acetate (Predforte 1% Ophth Susp) 2 drop QID OD Last administered on 08/06/18at 07:46; Start 08/03/18 at 14:15; Stop 08/06/18 at 11:19; Status DC Psyllium Hydrophilic Mucilloid (Metamucil) 1 pkt BID PO Last administered on 08/08/18at 20:48; Start 08/03/18 at 21:00 Spironolactone (Aldactone) 12.5 mg DAILY PO Last administered on 08/06/18at 07:45; Start 08/06/18 at 09:00; Stop 08/07/18 at 16:01; Status DC Valacyclovir HCl (Valtrex) 1,000 mg DAILY PO ; Start 08/03/18 at 15:00; Stop 08/03/18 at 15:26; Status DC Valacyclovir HCl (Valtrex) 1,000 mg TID PO Last administered on 08/06/18at 07:44; Start 08/03/18 at 16:00; Stop 08/06/18 at 11:19; Status DC KOFI REDMOND MD Aug 11, 2018 11:07
[2018-08-11 14:00] VITALS: BP 163/87
[2018-08-11 20:00] VITALS: BP 137/78
[2018-08-11] MEDS: LIDOCAINE 5% (LIDODERM) PATCH TD SCH (21:00)
[2018-08-11] MEDS: PRAVASTATIN 20 MG TAB PO SCH (21:21)
[2018-08-12] MEDS: HEPARIN SOD (PORCINE) 5000 UNITS/ML VIAL SC SCH ×3 (05:27→20:53)
[2018-08-12 05:41] VITALS: BP 158/70
[2018-08-12] MEDS: IPRATROPIUM 0.5MG/ALBUTEROL 2.5MG INH SOL UD 3ML (DUONEB)(J7620) NEB SCH ×3 (08:04→19:41)
[2018-08-12] MEDS: HumaLOG INSULIN (NovoLOG) PER UNIT SC SCH ×4 (08:45→20:53)
[2018-08-12] MEDS: OMEPRAZOLE 20 MG CAP PO SCH (08:46)
[2018-08-12] MEDS: MECLIZINE 25 MG TABLET PO SCH ×3 (08:46→20:46)
[2018-08-12] MEDS: GABAPENTIN 100 MG CAP PO SCH ×2 (08:46→20:45)
[2018-08-12] MEDS: LEVEMIR (INSULIN DETEMIR) 1 UNITS/0.01ML SC SCH ×2 (08:46→20:52)
[2018-08-12] MEDS: FUROSEMIDE 20 MG TAB PO SCH (08:46)
[2018-08-12] MEDS: CLOPIDOGREL 75 MG TAB PO SCH (08:46)
[2018-08-12] MEDS: amLODIPine 5 MG TAB PO SCH (08:47)
[2018-08-12] MEDS: guaiFENesin 200 MG TAB PO SCH ×2 (08:47→20:44)
[2018-08-12] MEDS: METAMUCIL (PSYLLIUM) PACKET PO SCH ×2 (08:47→20:46)
[2018-08-12] MEDS: CHLORHEXIDINE GLUCONATE 0.12 % 15ML UDC (PERIDEX ORAL RINSE) SSP SCH ×3 (08:47→20:46)
[2018-08-12] MEDS: **hydrALAZINE HCL** 25 MG TAB PO SCH ×3 (08:48→20:45)
[2018-08-12] MEDS: CARVedilol 6.25 MG TAB PO SCH ×2 (08:48→20:44)
[2018-08-12] MEDS: ISOSORBIDE MON. (IMDUR) 30 MG XR TAB PO SCH (08:48)
[2018-08-12] MEDS: **NOTE PATIENT COMMENT** MISC XX SCH (08:49)
--- NOTE | 2018-08-12 09:46 | NUR ---
Recommend upgrade to level 2 solids w/ small frequent meals and compensatory strategies handout provided (small bite/sip, alternate bite/sip, slow meal pace, etc.). Recommend continue honey thick liquids and medications in puree assist. Implement Luu Water Protocol w/ ice chips only after thorough oral care. Continue dysphagia tx. Addendum: 08/12/[address] [facility] Amended: Links added.
[2018-08-12 10:00] VITALS: BP 147/74
--- NOTE | 2018-08-12 10:01 | IPNPDOC ---
PM&R Progress Note DATE OF SERVICE: Aug 12, 2018 [employer] Operator Progress Note Subjective: Patient reports he is less dizzy and that his swallowing feels slightly stronger today. He is eager to have room privileges and return home next week. REVIEW OF SYSTEMS: The following is a completed review of systems and has been reviewed. Review of systems otherwise unremarkable. PAIN: Patient self reports no pain EYES: +intermittent right eye blurriness EARS, NOSE, & THROAT:+dysphagia CARDIOVASCULAR: denies chest pain or palpitations PULMONARY: Negative. Denies shortness of breath GASTROINTESTINAL: +diarrhea (improved) GENITOURINARY: Negative for dysuria or incontinence MUSCULOSKELETAL: LUE weakness NEUROLOGICAL: LUE weakness, peripheral neuropathy, intermittent dizziness HEMATOLOGICAL: Negative SKIN: bilateral anterior guerin ulcers PSYCHIATRIC: Unremarkable All other review of systems found to be negative. PHYSICAL EXAMINATION: VITAL SIGNS: Please see below. GENERAL: Pleasant and cooperative. No acute distress. HEENT: PERRL. Extraocular movements intact. Clear conjunctiva CARDIOVASCULAR: Regular rate and rhythm. No murmurs, rubs, or gallops LUNGS: Clear to auscultation bilaterally. No wheezes. No rhonchi ABDOMEN: Soft, nontender, nondistended. Positive bowel sounds. Normal active bowel sounds. NEUROLOGICAL: Alert and oriented times three. Cranial nerves II through XII grossly intact. Sensation to light touch diminished in stocking pattern in LE, intact in UE EXTREMITIES: 5\\5 strength bilateral upper extremities, mild pronator drift on the left. 5\\5 strength right lower extremity. 5/5 strength in left lower extremity. bilateral edema (-) Homans bilat SKIN: hyperpigmentation of caves with scattered dry ulcers bilat anterior shins and dorsum of D2 on the left ASSESSMENT: 68-year-old M with past medical history of CAD s/p CABG, diastolic CHF, stroke who presents status post right pontine stroke complicated by dysphagia and pneumonia. PLAN: 1. 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 Neuro: pmh 2 strokes in 2014 and recent right pontine stroke- c/u ASA 325mg daily and statin therapy- f/u outpatient neurology -episode of AMS with increased dizziness 07/30/18, CT negative for new stroke, repeat MRI also negative -episode of dizziness and elevated BP this 08/05/18, repeat CT negative, repeat MRi showing extension of previous right pontine stroke, "new small acute infarction in the right posterolateral leeanna", patient c/us to be clinically stable new deficits, BP better controlled -c/u meclizine to 25mg TID for persistent intermittent dizziness-improving 3. cardiac: pmh CAD s/p CABG, Aortic valve replacement, poorly controlled HTN a nd recent ECHO 07/24/18 showing grade 2 diastolic dysfunction- c/u diuretics and BP meds, adjust prn- medicine consulted to assist with management and lowered total daily dosing to 60mg, [employer] improving -HTN improving on hydralazine, Imdur, amlodipine, and carvedilol, -renal consulted to assist with BP management in setting of renal artery stenosis, recs appreciated -c/u fluid restrict to 1800cc and Lasix for CHF- medicine following -Renal US positive for renal artery stenosis will set up with cardiology for IR intervention upon discharge or defer to renal recs -c/u nocturnal 02 3. Resp: s/p recent aspiration pneumonia and currently off antibiotics, - encourage incentive spirometry and c/u breathing treatments -Chlorohexidine mouth wash to protect against aspiration PNA-stable improving cough and no leukocytosis 4. Endo: pmh dm with severe peripheral neuropathy- c/i ISS and adjust prn, will recommend diabetic shoes 5. GI ppx: prilosec, immodium prn for loose stools- c diff negative, improving -will defer GI scope for now for concern for esophageal dysmotility 6. DVT ppx: TEDs and heparin 7. SKin: joel-wrap bilat LE for edema 8. ID: Admission Ucx + for VRE, asymptomatic, no treatment ordered, ID recs appreciated - Facial Zoster- previously incomplete treatment, s/p course of Valtrex 1g TID x 7 days and steroid eye drop to prevent corneal scarring-discussed with medicine, patient's symptoms improving 9. Dispo: 08/17/18 to home, progressing towards goals Allergies Coded Allergies: No Known Allergies (Unverified , 07/19/18) Vital Signs Vital Signs Date Time Temp Pulse Resp B/P (MAP) Pulse Ox O2 Delivery O2 Flow Rate FiO2 08/12/18 08:47 90 158/70 08/12/18 05:41 98.1 18 97 08/10/18 02:00 2.0 Laboratory Data Labs 24H Laboratory Tests 2 08/11/18 11:52: Bedside Glucose (Misc Panel) 310H 08/11/18 16:40: Bedside Glucose (Misc Panel) 285H 08/11/18 19:29: Bedside Glucose (Misc Panel) 363H 08/12/18 06:10: Bedside Glucose (Misc Panel) 162H Current Medications Current Medications Current Medications Acetaminophen (Tylenol Tab) 650 mg Q4HP PRN PO MILD PAIN (PS 1-4) Last administered on 08/05/18 02:04; Start 07/28/18 at 18:45 Albuterol/ Ipratropium (Duoneb (Ipr 0.5mg/Alb 2.5mg)) 3 ml RTID NEB Last administered on 08/12/18 08:04; Start 07/29/18 at 20:00 Amlodipine Besylate (Norvasc) 5 mg BID PO Last administered on 08/06/18 07:44; Start 08/05/18 at 21:00; Stop 08/06/18 at 14:06; Status DC Amlodipine Besylate (Norvasc) 5 mg DAILY PO Last administered on 08/12/18 08:47; Start 08/12/18 at 09:00 Amlodipine Besylate (Norvasc) 5 mg DAILY PO Last administered on 08/05/18 08:06; Start 08/01/18 at 09:00; Stop 08/05/18 at 12:18; Status DC Amlodipine Besylate (Norvasc) 5 mg DAILY PO Last administered on 08/11/18 08:09; Start 08/07/18 at 09:00; Stop 08/11/18 at 10:02; Status DC Aspirin (Aspirin) 325 mg DAILY PO Last administered on 08/05/18 08:03; Start 07/29/18 at 09:00; Stop 08/05/18 at 19:10; Status DC Carvedilol (COReg) 6.25 mg BID PO Last administered on 08/12/18 08:48; Start 07/30/18 at 12:00 Chlorhexidine Gluconate (Peridex Oral Rinse) 15 ml TID SSP Last administered on 08/12/18 08:47; Start 07/29/18 at 16:00 Clonidine HCl (Catapres) 0.1 mg QHS PO Last administered on 07/31/18at 20:58; Start 07/29/18 at 21:00; Stop 08/01/18 at 14:22; Status DC Clopidogrel Bisulfate (PLAVix) 75 mg DAILY PO Last administered on 08/12/18 08:46; Start 08/06/18 at 09:00 Dextrose (Dextrose 50%) 25 ml ASDIRECTED PRN IV SEE LABEL COMMENTS; Start 07/28/18 at 18:45 Furosemide (Lasix) 40 mg BID@17 PO Last administered on 08/03/18 16:22; Start 07/29/18 at 09:00; Stop 08/03/18 at 18:06; Status DC Furosemide (Lasix) 60 mg DAILY PO Last administered on 08/12/18 08:46; Start 08/04/18 at 09:00 Gabapentin (Neurontin) 100 mg BID PO Last administered on 08/12/18 08:46; Start 08/03/18 at 21:00 Gabapentin (Neurontin) 100 mg QID PO Last administered on 08/03/18 12:01; Start 07/28/18 at 21:00; Stop 08/03/18 at 13:00; Status DC Glucagon (Glucagon) 1 mg ASDIRECTED PRN SC SEE LABEL COMMENTS; Start 07/28/18 at 18:45 Glucose (Glucose) 16 GM ASDIRECTED PRN PO SEE LABEL COMMENTS; Start 07/28/18 at 18:45 Guaifenesin (Robitussin Tab) 400 mg BID PO Last administered on 08/12/18 08:47; Start 07/29/18 at 21:00 Heparin Sodium (Porcine) (Heparin) 5,000 units Q8H SC Last administered on 08/12/18 05:27; Start 07/28/18 at 22:00 Hydralazine HCl (Apresoline) 25 mg Q6HP PRN PO prn for >140 sBP Last administered on 07/29/18 09:13; Start 07/28/18 at 18:45; Stop 07/29/18 at 10:44; Status DC Hydralazine HCl (Apresoline) 25 mg TID PO Last administered on 08/08/18at 17:16; Start 08/02/18 at 16:00 Hydralazine HCl (Apresoline) 50 mg Q6HP PRN PO prn for >140 sBP; Start 07/29/18 at 10:45; Stop 07/29/18 at 10:51; Status DC Hydralazine HCl (Apresoline) 50 mg Q6HP PRN PO prn for >140 sBP Last administered on 07/30/18at 10:57; Start 07/29/18 at 17:00; Stop 07/30/18 at 10:59; Status DC Hydralazine HCl (Apresoline) 50 mg TID PO Last administered on 08/02/18at 08:17; Start 07/30/18 at 16:00; Stop 08/02/18 at 10:42; Status DC Insulin Detemir (Levemir Insulin) 18 units BID SC Last administered on 08/11/18at 08:06; Start 07/28/18 at 21:00; Stop 08/11/18 at 10:02; Status DC Insulin Detemir (Levemir Insulin) 22 units BID SC Last administered on 08/12/18at 08:46; Start 08/11/18 at 21:00 Insulin Human Lispro (HumaLOG INSULIN) SEE PROTOCOL TABLE AC SC Last administered on 08/12/18at 08:45; Start 07/29/18 at 07:30 Insulin Human Lispro (HumaLOG INSULIN) SEE PROTOCOL TABLE QHS SC Last administered on 08/11/18at 21:22; Start 07/28/18 at 21:00 Isosorbide Mononitrate (Imdur) 30 mg DAILY PO Last administered on 08/12/18at 08:48; Start 07/31/18 at 09:00 Labetalol HCl (Normodyne, Trandate) 10 mg STAT STAT IV ; Start 08/05/18 at 10:18; Stop 08/05/18 at 10:19; Status Cancel Lidocaine (Lidoderm Patch) 1 patch QHS TD Last administered on 08/10/18at 21:16; Start 08/10/18 at 21:00 Lisinopril (Prinivil) 20 mg BID PO Last administered on 07/31/18at 10:00; Start 07/29/18 at 21:00; Stop 07/31/18 at 11:53; Status DC Lisinopril (Prinivil) 20 mg DAILY PO Last administered on 07/29/18at 08:10; Start 07/29/18 at 09:00; Stop 07/29/18 at 10:44; Status DC Loperamide HCl (Imodium) 2 mg ASDIRECTED PRN PO DIARRHEA; Start 08/03/18 at 17:30 Meclizine HCl (Antivert) 12.5 mg QHS PO Last administered on 08/02/18at 21:09; Start 07/31/18 at 21:00; Stop 08/03/18 at 17:29; Status DC Meclizine HCl (Antivert) 12.5 mg TID PO Last administered on 07/31/18at 10:00; Start 07/30/18 at 09:00; Stop 07/31/18 at 11:24; Status DC Meclizine HCl (Antivert) 12.5 mg TID PO ; Start 08/05/18 at 09:00; Stop 08/05/18 at 10:08; Status DC Meclizine HCl (Antivert) 12.5 mg TID PO Last administered on 08/10/18at 08:43; Start 08/05/18 at 16:00; Stop 08/10/18 at 17:13; Status DC Meclizine HCl (Antivert) 25 mg TID PO Last administered on 08/12/18at 08:46; Start 08/10/18 at 21:00 Metoprolol Tartrate (Lopressor) 50 mg BID PO Last administered on 08/01/18at 21:35; Start 07/28/18 at 21:00; Stop 08/02/18 at 10:51; Status DC Nitroglycerin (Nitrostat (1/ 150)) 0.4 mg Q5MP PRN SL CHEST PAIN; Start 07/28/18 at 18:45 Non-Formulary Medication ( See Comment Field Below ) REMOVE LIDODERM PATCH DAILY XX Last administered on 08/11/18at 08:11; Start 08/11/18 at 09:00 Omeprazole (PriLOSEC) 20 mg DAILY PO ; Start 07/29/18 at 09:00; Stop 07/29/18 at 09:00; Status DC Omeprazole (PriLOSEC) 20 mg DAILY PO Last administered on 08/12/18 08:46; Start 07/29/18 at 09:00 Ondansetron HCl (ZOFRAN INJection) 4 mg Q6HP PRN IV NAUSEA OR VOMITING Last administered on 08/05/18 05:50; Start 08/05/18 at 05:45 Ondansetron HCl (Zofran) 4 mg Q6HP PRN PO NAUSEA Last administered on 07/30/18 10:06; Start 07/28/18 at 18:45; Stop 08/05/18 at 05:33; Status DC Oxcarbazepine (Trileptal) 150 mg BID PO Last administered on 08/02/18 08:14; Start 07/31/18 at 21:00; Stop 08/02/18 at 10:44; Status DC Oxcarbazepine (Trileptal) 150 mg DAILY@2000 PO Last administered on 08/02/18 21:09; Start 08/02/18 at 20:00; Stop 08/03/18 at 18:06; Status DC Oxcarbazepine (Trileptal) 150 mg QAM PO Last administered on 07/31/18at 10:04; Start 07/29/18 at 09:00; Stop 07/31/18 at 11:26; Status DC Oxcarbazepine (Trileptal) 300 mg QHS PO Last administered on 07/30/18at 21:43; Start 07/28/18 at 21:00; Stop 07/31/18 at 11:26; Status DC Oxymetazoline HCl (Afrin) 2 spray ONCE PRN NA DISCOMFORT (SEE LABEL COMMENTS; Start 08/10/18 at 10:00 Pantoprazole Sodium (Protonix) 40 mg QPM PO ; Start 07/29/18 at 21:00; Stop 07/29/18 at 21:00; Status DC Potassium Chloride (Micro-K Extencaps) 20 meq DAILY PO Last administered on 08/05/18at 08:04; Start 07/29/18 at 09:00; Stop 08/05/18 at 12:20; Status DC Pravastatin Sodium (Pravachol) 40 mg QHS PO Last administered on 08/11/18at 21:21; Start 07/28/18 at 21:00 Prednisolone Acetate (Predforte 1% Ophth Susp) 2 drop QID OD Last administered on 08/06/18at 07:46; Start 08/03/18 at 14:15; Stop 08/06/18 at 11:19; Status DC Psyllium Hydrophilic Mucilloid (Metamucil) 1 pkt BID PO Last administered on 08/08/18at 20:48; Start 08/03/18 at 21:00 Spironolactone (Aldactone) 12.5 mg DAILY PO Last administered on 08/06/18at 07:45; Start 08/06/18 at 09:00; Stop 08/07/18 at 16:01; Status DC Valacyclovir HCl (Valtrex) 1,000 mg DAILY PO ; Start 08/03/18 at 15:00; Stop 08/03/18 at 15:26; Status DC Valacyclovir HCl (Valtrex) 1,000 mg TID PO Last administered on 08/06/18at 07:44; Start 08/03/18 at 16:00; Stop 08/06/18 at 11:19; Status DC KOFI REDMOND MD Aug 12, 2018 10:01
[2018-08-12 14:00] VITALS: BP 132/65
--- NOTE | 2018-08-12 15:54 | IPNPDOC ---
Subjective Date Seen The patient was seen on 08/12/18. Subjective Chief Complaint/HPI Patient is a 68-year-old male with a past medical history of coronary artery disease, status post coronary artery bypass graft (CABG), hypertension, CVA in 2015 with residual right-sided weakness and a degree of dysphagia, dyslipidemia, type 2 diabetes with neuropathy, prostate cancer - status post radiation, aortic valve replacement, not on anticoagulation, history of chronic kidney disease stage III, and more recently acute right kayleen CVA Objective Physical Examination General Exam: Positive: Alert, Cooperative, No Acute Distress Eye Exam: Positive: PERRLA, Conjunctiva & lids normal, EOMI ENT Exam: Positive: Atraumatic, Mucous membr. moist/pink, Pharynx Normal Neck Exam: Positive: Supple; Negative: JVD, thyromegaly Chest Exam: Positive: Clear to auscultation, Normal air movement Heart Exam: Positive: Rate Normal, Regular Rhythm Abdomen Exam: Positive: Normal bowel sounds, Soft; Negative: Tenderness Male Exam: Positive: Edema Extremity Exam: Positive: Edema (2+ to BLE with venous stasis changes) Skin Exam: Positive: Other skin issue (venous stasis changes, foam dressing to posterior LLE) Neuro Exam: Positive: Normal Tone; Negative: Normal Speech (slow speech, yet is still comprehensible), Strength at 5/5 X4 ext (right upper extremity weakness) Psych Exam: Positive: Mental status NL (sleepy) Assessment /Plan Problems (1) CVA (cerebral vascular accident) Problem Text: -ischemic type, to right Kayleen with left extremity weakness -had another stroke on MRI to right Kayleen --S/P ILR placement -continued in rehab unit for mobilization/strengthening (2) Diastolic CHF, acute on chronic Problem Text: -continue Lasix to 60 mg daily -renal indices are stable -Continue strict input output and other guideline directed medical management of heart failure (3) GERD (gastroesophageal reflux disease) Problem Text: -continue aspiration precautions -continue PPI (4) Diabetes mellitus type 2, insulin dependent Status: Chronic Problem Text: -fingerstick checks prior to meals and at bedtime -continue diabetic diet -coverage with insulin per sliding scale protocol (5) Hypertension Status: Chronic Problem Text: -continue on hydralazine, imdur -monitoring per unit protocol -adjust medications and doses for target blood pressure systolic <140 (6) CAD (coronary artery disease) of bypass graft Status: Chronic Problem Text: -control blood pressure -continue statin therapy, aspirin -treatment of underlying heart failure (7) Postherpetic neuralgia Status: Acute Problem Text: improved on current management (8) Renal artery stenosis Problem Text: -possible stenosis seen on U/S which was ordered for hard to control blood pressure. Nephro following. Consider MRA/renal angiogram pending nephro recommendations. t (9) VRE (vancomycin resistant enterococcus) culture positive Problem Text: -evaluated by ID specialist, no indication for antibiotic therapy -continue contact precautions (10) Advance care planning Problem Text: -code status is DNR -disposistion to home when rehab completed (11) DVT prophylaxis Problem Text: -heparin 5000 units Q8 Plan/VTE VTE Prophylaxis Ordered?: Yes VS, I&O, 24H, Fishbone Vital Signs/I&O Vital Signs Date Time Temp Pulse Resp B/P (MAP) Pulse Ox O2 Delivery O2 Flow Rate FiO2 08/12/18 14:00 98.5 83 18 132/65 (87) 99 08/10/18 02:00 2.0 I&O- Last 24 Hours up to 6 AM 08/12/18 06:00 Intake Total 720 ml Output Total 200 ml Balance 520 ml Laboratory Data 24H LABS Laboratory Tests 2 08/11/18 16:40: Bedside Glucose (Misc Panel) 285H 08/11/18 19:29: Bedside Glucose (Misc Panel) 363H 08/12/18 06:10: Bedside Glucose (Misc Panel) 162H 08/12/18 11:33: Bedside Glucose (Misc Panel) 298H DAMIEN LICEA [employer] Aug 12, 2018 15:54
[2018-08-12 18:00] VITALS: BP 137/70
[2018-08-12 20:00] VITALS: BP 153/72
[2018-08-12] MEDS: PRAVASTATIN 20 MG TAB PO SCH (20:43)
[2018-08-12] MEDS: LIDOCAINE 5% (LIDODERM) PATCH TD SCH (20:51)
[2018-08-13 02:00] VITALS: BP 149/65
[2018-08-13 05:00] VITALS: BP 122/58
[2018-08-13 06:09] LABS: BASO # 0.1 10^3/uL (0.0-0.2); BASO % 0.7 % (0.0-1.0); EOS # 0.6 10^3/uL (0.0-0.50); EOS % 7.6 % (0.0-3.0); HEMATOCRIT 33.6 % (42.0-52.0); HEMOGLOBIN 11.1 g/dl (13.5-17.5); LYMPH # 0.9 10^3/uL (1.5-4.5); LYMPH % 10.3 % (24.0-44.0); MEAN CORPUSCULAR HEMOGLOBIN 30.4 pg (27.0-33.0); MEAN CORPUSCULAR VOLUME 92.1 fl (80.0-96.0); MONO # 0.7 10^3/uL (0.0-0.8); MONO % 8.2 % (0.0-5.0); NEUTROPHILS # 6.1 10^3/uL (1.8-7.7); NEUTROPHILS % 72.4 % (36.0-66.0); PLATELET COUNT, AUTOMATED 301 10^3/uL (150-450); RED BLOOD COUNT 3.65 10^6/uL (4.30-6.10); WHITE BLOOD COUNT 8.4 10^3/uL (4.0-10.0)
[2018-08-13 06:29] LABS: CREATININE FOR GFR 1.37 MG/DL (0.70-1.30); GLOMERULAR FILTRATION RATE 54.7 (>42); POTASSIUM SERUM 3.8 MEQ/L (3.5-5.1)
[2018-08-13] MEDS: HEPARIN SOD (PORCINE) 5000 UNITS/ML VIAL SC SCH ×3 (06:38→21:26)
[2018-08-13] MEDS: HumaLOG INSULIN (NovoLOG) PER UNIT SC SCH ×4 (08:04→21:00)
[2018-08-13] MEDS: LEVEMIR (INSULIN DETEMIR) 1 UNITS/0.01ML SC SCH ×2 (08:06→21:26)
[2018-08-13] MEDS: guaiFENesin 200 MG TAB PO SCH ×2 (08:07→21:29)
[2018-08-13] MEDS: OMEPRAZOLE 20 MG CAP PO SCH (08:07)
[2018-08-13] MEDS: CHLORHEXIDINE GLUCONATE 0.12 % 15ML UDC (PERIDEX ORAL RINSE) SSP SCH ×3 (08:07→21:25)
[2018-08-13] MEDS: CLOPIDOGREL 75 MG TAB PO SCH (08:07)
[2018-08-13] MEDS: FUROSEMIDE 20 MG TAB PO SCH (08:07)
[2018-08-13] MEDS: **hydrALAZINE HCL** 25 MG TAB PO SCH ×3 (08:08→21:00)
[2018-08-13] MEDS: MECLIZINE 25 MG TABLET PO SCH ×3 (08:09→21:28)
[2018-08-13] MEDS: amLODIPine 5 MG TAB PO SCH (08:09)
[2018-08-13] MEDS: CARVedilol 6.25 MG TAB PO SCH ×2 (08:10→21:28)
[2018-08-13] MEDS: ISOSORBIDE MON. (IMDUR) 30 MG XR TAB PO SCH (08:11)
[2018-08-13] MEDS: GABAPENTIN 100 MG CAP PO SCH ×2 (08:11→21:28)
[2018-08-13] MEDS: METAMUCIL (PSYLLIUM) PACKET PO SCH ×3 (08:11→21:28)
[2018-08-13] MEDS: **NOTE PATIENT COMMENT** MISC XX SCH (08:24)
[2018-08-13] MEDS: IPRATROPIUM 0.5MG/ALBUTEROL 2.5MG INH SOL UD 3ML (DUONEB)(J7620) NEB SCH ×3 (09:23→20:25)
--- NOTE | 2018-08-13 13:10 | IPNPDOC ---
Subjective Date Seen The patient was seen on 08/13/18. Subjective Chief Complaint/HPI Patient is a 68-year-old male with a past medical history of coronary artery disease, status post coronary artery bypass graft, hypertension, CVA in 2015 with residual right-sided weakness and a degree of dysphagia, dyslipidemia, type 2 diabetes with neuropathy, prostate cancer -S/P radiation, aortic valve replacement, not on anticoagulation, history of chronic kidney disease stage III, and more recently acute right kayleen CVA Events since last encounter Patient has no complaints at this time. Continues to feel better. Denies chest pain, shortness of breath, weakness Objective Physical Examination General Exam: Positive: Alert, Cooperative, No Acute Distress Eye Exam: Positive: PERRLA, Conjunctiva & lids normal, EOMI ENT Exam: Positive: Atraumatic, Mucous membr. moist/pink, Pharynx Normal Neck Exam: Positive: Supple; Negative: JVD, thyromegaly Chest Exam: Positive: Clear to auscultation, Normal air movement Heart Exam: Positive: Rate Normal, Regular Rhythm Abdomen Exam: Positive: Normal bowel sounds, Soft; Negative: Tenderness Extremity Exam: Positive: Edema (2+ to BLE with venous stasis changes) Skin Exam: Positive: Other skin issue (venous stasis changes, foam dressing to posterior LLE); Negative: Rash Neuro Exam: Positive: Normal Speech, Strength at 5/5 X4 ext, Normal Tone Psych Exam: Positive: Mental status NL (sleepy), Mood NL, Oriented x 3; Negative: Anxiety Assessment /Plan Problems (1) CVA (cerebral vascular accident) Problem Text: -ischemic type to right Kayleen with left extremity weakness -had another stroke on MRI to right Kayleen --S/P ILR placement -continued in rehab unit for mobilization/strengthening -No acute neurologic findings (2) Diastolic CHF, acute on chronic Problem Text: -Continue volume control fluid restriction -Continue 60 mg by mouth Lasix daily (3) GERD (gastroesophageal reflux disease) Problem Text: -Dysphagia reported and persisting -Possibly new to acute stroke -Continue aspiration precautions (4) Diabetes mellitus type 2, insulin dependent Status: Chronic Problem Text: -fingerstick checks prior to meals and at bedtime -continue diabetic diet -coverage with insulin per sliding scale protocol (5) Hypertension Status: Chronic Problem Text: -Stable and controlled on current management -Continue hydralazine, Imdur, Norvasc (6) Postherpetic neuralgia Status: Acute Problem Text: -Completed treatment with Valtrex, resolved (7) Renal artery stenosis Problem Text: -Outpatient follow-up with cardiology for further input and management -If renal artery stenosis ruled out. Patient will need to be started on WANDA inhibitor at the discretion of nephrology. Given underlying diabetes mellitus (8) VRE (vancomycin resistant enterococcus) culture positive Problem Text: -evaluated by ID specialist, no indication for antibiotic therapy -continue contact precautions (9) Advance care planning Problem Text: -code status is DNR -disposistion to home when rehab completed (10) DVT prophylaxis Problem Text: -heparin 5000 units Q8 Plan/VTE VTE Prophylaxis Ordered?: Yes VS, I&O, 24H, Fishbone Vital Signs/I&O Vital Signs Date Time Temp Pulse Resp B/P (MAP) Pulse Ox O2 Delivery O2 Flow Rate FiO2 08/13/18 08:11 122/58 08/13/18 08:10 88 08/13/18 05:00 98.2 18 92 08/10/18 02:00 2.0 I&O- Last 24 Hours up to 6 AM 08/13/18 06:00 Intake Total 600 ml Balance 600 ml Laboratory Data 24H LABS Laboratory Tests 2 08/12/18 17:11: Bedside Glucose (Misc Panel) 323H 08/12/18 20:15: Bedside Glucose (Misc Panel) 363H 08/13/18 05:23: Immature Granulocyte % (Auto) 0.8, White Blood Count 8.4, Red Blood Count 3.65L, Hemoglobin 11.1L, Hematocrit 33.6L, Mean Corpuscular Volume 92.1, Mean Corpuscular Hemoglobin 30.4, Mean Corpuscular Hemoglobin Concent 33.0, Red Cell Distribution Width 13.9, Platelet Count 301, Neutrophils (%) (Auto) 72.4H, Lymphocytes (%) (Auto) 10.3L, Monocytes (%) (Auto) 8.2H, Eosinophils (%) (Auto) 7.6H, Basophils (%) (Auto) 0.7, Neutrophils # (Auto) 6.1, Lymphocytes # (Auto) 0.9L, Monocytes # (Auto) 0.7, Eosinophils # (Auto) 0.6H, Basophils # (Auto) 0.1, Nucleated Red Blood Cells % (auto) 0.0, Anion Gap 7L, Glomerular Filtration Rate 54.7, Blood Urea Nitrogen 17, Creatinine 1.37H, Sodium Level 141, Potassium Level 3.8, Chloride Level 103, Carbon Dioxide Level 31, Calcium Level 9.0 CBC/BMP Laboratory Tests 08/13/18 05:23 Red Blood Count 3.65 L, Mean Corpuscular Volume 92.1, Mean Corpuscular Hemoglobin 30.4, Mean Corpuscular Hemoglobin Concent 33.0, Red Cell Distribution Width 13.9, Neutrophils (%) (Auto) 72.4 H, Lymphocytes (%) (Auto) 10.3 L, Monocytes (%) (Auto) 8.2 H, Eosinophils (%) (Auto) 7.6 H, Basophils (%) (Auto) 0.7, Neutrophils # (Auto) 6.1, Lymphocytes # (Auto) 0.9 L, Monocytes # (Auto) 0.7, Eosinophils # (Auto) 0.6 H, Basophils # (Auto) 0.1, Calcium Level 9.0 DAMIEN LICEA [facility] Aug 13, 2018 13:10
--- NOTE | 2018-08-13 13:27 | IPN ---
DATE OF VISIT: 08/13/2018 Mr. Rosario is seen this morning on his bedside. He is sitting in the chair at the time of my visit. His blood pressure has been very well controlled. He reports that he had difficulty swallowing due to which his discharge has been postponed until next week. He has history of recurrent strokes but has done well with rehab. He denies any dyspnea, chest pain, nausea or vomiting. PHYSICAL EXAMINATION: Temperature 98.2 degrees Fahrenheit, heart rate 88 per minute and respiratory rate 18 per minute. Blood pressure 122/58 mmHg and oxygen saturation 92% on room air. Head is atraumatic. Neck is supple and without JVD or thyroid enlargement. Heart sounds are regular and lungs sound clear to auscultation bilaterally. Abdomen soft and nontender. Bowel sounds are normal. Extremities have no cyanosis or clubbing. Today's labs show WBC count 8.4, hemoglobin 11.1 and hematocrit 33.6. Sodium 141, potassium 3.8, CO2 31, BUN 17 and creatinine 1.37. PROBLEMS: 1. Acute on chronic kidney disease. Kidney function seems to be stable at about baseline with creatinine between 1.2 and 1.3 mg/dL. 2. Hypertension. He had some difficulty with his hypertension early on, however, now his blood pressure has been very well controlled on current medications. No changes are being made today. 3. Congestive heart failure. Volume status is very well compensated with Lasix 60 mg daily. His intake of fluids is limited due to difficulty swallowing and he is on thickened liquids. 4. Renal artery stenosis. Renal Doppler study was negative for stenosis of the renal arteries, however he probably has small vessel disease. At this point his kidney function is stable and blood pressure well-controlled so I will not consider any further investigations. He can be followed up as outpatient.
[2018-08-13 14:00] VITALS: BP 152/80
[2018-08-13 20:00] VITALS: BP 161/76
[2018-08-13] MEDS: LIDOCAINE 5% (LIDODERM) PATCH TD SCH (21:00)
[2018-08-13] MEDS: PRAVASTATIN 20 MG TAB PO SCH (21:28)
[2018-08-14] VITALS (9 sets, daily range): BP systolic 120–190; BP diastolic 57–86
[2018-08-14] MEDS: HEPARIN SOD (PORCINE) 5000 UNITS/ML VIAL SC SCH ×3 (05:27→21:26)
[2018-08-14] MEDS: IPRATROPIUM 0.5MG/ALBUTEROL 2.5MG INH SOL UD 3ML (DUONEB)(J7620) NEB SCH ×3 (07:36→20:17)
[2018-08-14] MEDS: **hydrALAZINE HCL** 25 MG TAB PO SCH ×4 (09:00→21:26)
[2018-08-14] MEDS: **NOTE PATIENT COMMENT** MISC XX SCH (09:00)
[2018-08-14] MEDS: GABAPENTIN 100 MG CAP PO SCH ×2 (09:24→21:27)
[2018-08-14] MEDS: OMEPRAZOLE 20 MG CAP PO SCH (09:24)
[2018-08-14] MEDS: CLOPIDOGREL 75 MG TAB PO SCH (09:25)
[2018-08-14] MEDS: FUROSEMIDE 20 MG TAB PO SCH (09:25)
[2018-08-14] MEDS: MECLIZINE 25 MG TABLET PO SCH ×3 (09:25→21:27)
[2018-08-14] MEDS: guaiFENesin 200 MG TAB PO SCH ×2 (09:25→21:26)
[2018-08-14] MEDS: HumaLOG INSULIN (NovoLOG) PER UNIT SC SCH ×4 (09:25→21:00)
[2018-08-14] MEDS: amLODIPine 5 MG TAB PO SCH (09:26)
[2018-08-14] MEDS: LEVEMIR (INSULIN DETEMIR) 1 UNITS/0.01ML SC SCH ×2 (09:26→21:25)
[2018-08-14] MEDS: CHLORHEXIDINE GLUCONATE 0.12 % 15ML UDC (PERIDEX ORAL RINSE) SSP SCH ×3 (09:26→21:24)
[2018-08-14] MEDS: METAMUCIL (PSYLLIUM) PACKET PO SCH ×2 (09:27→21:00)
[2018-08-14] MEDS: ISOSORBIDE MON. (IMDUR) 30 MG XR TAB PO SCH (09:27)
[2018-08-14] MEDS: CARVedilol 6.25 MG TAB PO SCH ×2 (09:28→21:27)
--- NOTE | 2018-08-14 12:05 | IPNPDOC ---
Subjective Date Seen The patient was seen on 08/14/18. Subjective Chief Complaint/HPI Patient is a 68-year-old male, recently admitted for altered mental status and found to have right kayleen ischemic stroke. Events since last encounter since admit patient has had an extension of his stroke with uncontrolled blood pressures. He has since had a steady improvement in mental status with medication adjustments. Today denies discomfort, was able to go outside with therapy and used walker. Still has left extremity weakness and reports persisting dysphagia Objective Physical Examination General Exam: Positive: Alert, Cooperative, No Acute Distress Eye Exam: Positive: PERRLA, Conjunctiva & lids normal, EOMI ENT Exam: Positive: Atraumatic, Mucous membr. moist/pink, Pharynx Normal Neck Exam: Positive: Supple; Negative: JVD, thyromegaly Chest Exam: Positive: Clear to auscultation, Normal air movement Heart Exam: Positive: Rate Normal, Regular Rhythm Abdomen Exam: Positive: Normal bowel sounds, Soft; Negative: Tenderness Extremity Exam: Positive: Edema (2+ to BLE with venous stasis changes) Skin Exam: Positive: Other skin issue (venous stasis changes, foam dressing to posterior LLE); Negative: Rash Neuro Exam: Positive: Normal Speech, Strength at 5/5 X4 ext, Normal Tone Psych Exam: Positive: Mental status NL (sleepy), Mood NL, Oriented x 3; Negative: Anxiety Assessment /Plan Problems (1) CVA (cerebral vascular accident) Problem Text: -ischemic type to right Kayleen with left extremity weakness. Had extension of stroke on repeat MRI this admit --S/P ILR placement to rule out cryptogenic cause although blood pressure has been very high this admit -continued in rehab unit for mobilization/strengthening -No new neurologic findings (2) Diastolic CHF, acute on chronic Problem Text: -Continue volume control fluid restriction -Continue 60 mg by mouth Lasix daily (3) GERD (gastroesophageal reflux disease) Problem Text: -persisting dysphagia, continue aspiration precautions (4) Diabetes mellitus type 2, insulin dependent Status: Chronic Problem Text: -fingerstick checks prior to meals and at bedtime -continue diabetic diet -coverage with insulin per sliding scale protocol -add glipizide (5) Hypertension Status: Chronic Problem Text: -elevated this am because hydralazine was held. -went up to 190 systolic blood pressure -parameters readjusted: -Continue hydralazine, Imdur, Norvasc (6) Postherpetic neuralgia Status: Acute Problem Text: -Completed treatment with Valtrex, resolved (7) Renal artery stenosis Problem Text: -Outpatient follow-up with cardiology for further input and management -If renal artery stenosis ruled out. Patient will need to be started on WANDA inhibitor at the discretion of nephrology. Given underlying diabetes mellitus (8) VRE (vancomycin resistant enterococcus) culture positive Problem Text: -evaluated by ID specialist, no indication for antibiotic therapy -continue contact precautions (9) Advance care planning Problem Text: -code status is DNR -disposistion to home when rehab completed (10) DVT prophylaxis Problem Text: -heparin 5000 units Q8 Plan/VTE VTE Prophylaxis Ordered?: Yes VS, I&O, 24H, Fishbone Vital Signs/I&O Vital Signs Date Time Temp Pulse Resp B/P (MAP) Pulse Ox O2 Delivery O2 Flow Rate FiO2 08/14/18 11:33 165/84 (111) 08/14/18 10:00 98.4 79 18 97 08/10/18 02:00 2.0 I&O- Last 24 Hours up to 6 AM 08/14/18 06:00 Intake Total 690 ml Balance 690 ml Laboratory Data 24H LABS Laboratory Tests 2 08/13/18 12:16: Bedside Glucose (Misc Panel) 254H 08/13/18 16:41: Bedside Glucose (Misc Panel) 215H 08/13/18 19:46: Bedside Glucose (Misc Panel) 224H 08/14/18 06:14: Bedside Glucose (Misc Panel) 209H DAMIEN LICEA [facility] Aug 14, 2018 12:05
[2018-08-14] MEDS: glipiZIDE *2.5MG* 1/2 TABLET PO SCH (13:38)
[2018-08-14] MEDS: LIDOCAINE 5% (LIDODERM) PATCH TD SCH (21:00)
[2018-08-14] MEDS: PRAVASTATIN 20 MG TAB PO SCH (21:26)
[2018-08-15] VITALS (8 sets, daily range): BP systolic 127–175; BP diastolic 63–86
[2018-08-15] MEDS ORDERED: amLODIPine 5 MG TAB PO ONE (02:00)
[2018-08-15] MEDS: HEPARIN SOD (PORCINE) 5000 UNITS/ML VIAL SC SCH ×3 (05:23→22:10)
[2018-08-15 06:54] LABS: HEMATOCRIT 34.7 % (42.0-52.0); HEMOGLOBIN 11.4 g/dl (13.5-17.5); MEAN CORPUSCULAR HEMOGLOBIN 30.5 pg (27.0-33.0); MEAN CORPUSCULAR HGB CONC 32.9 g/dl (32.0-36.5); MEAN CORPUSCULAR VOLUME 92.8 fl (80.0-96.0); PLATELET COUNT, AUTOMATED 248 10^3/uL (150-450); RED BLOOD COUNT 3.74 10^6/uL (4.30-6.10); WHITE BLOOD COUNT 8.4 10^3/uL (4.0-10.0)
[2018-08-15] MEDS: IPRATROPIUM 0.5MG/ALBUTEROL 2.5MG INH SOL UD 3ML (DUONEB)(J7620) NEB SCH ×3 (07:09→19:51)
[2018-08-15 07:20] LABS: ALBUMIN 2.6 GM/DL (3.2-5.2); ALT/SGPT 14 U/L (12-78); BILIRUBIN,TOTAL 0.2 MG/DL (0.2-1.0); BLOOD UREA NITROGEN 12 MG/DL (7-18); CALCIUM LEVEL 8.5 MG/DL (8.8-10.2); CARBON DIOXIDE LEVEL 32 MEQ/L (21-32); CHLORIDE LEVEL 103 MEQ/L (98-107); GLOMERULAR FILTRATION RATE > 60.0 (>42); GLUCOSE, FASTING 217 MG/DL (70-100); MAGNESIUM LEVEL 1.6 MG/DL (1.8-2.4); POTASSIUM SERUM 3.8 MEQ/L (3.5-5.1); SODIUM LEVEL 141 MEQ/L (136-145); TOTAL PROTEIN 6.2 GM/DL (6.4-8.2)
[2018-08-15] MEDS: glipiZIDE *2.5MG* 1/2 TABLET PO SCH (08:26)
[2018-08-15] MEDS: LEVEMIR (INSULIN DETEMIR) 1 UNITS/0.01ML SC SCH ×2 (08:27→22:10)
[2018-08-15] MEDS: CHLORHEXIDINE GLUCONATE 0.12 % 15ML UDC (PERIDEX ORAL RINSE) SSP SCH ×3 (08:27→22:07)
[2018-08-15] MEDS: HumaLOG INSULIN (NovoLOG) PER UNIT SC SCH ×4 (08:27→21:00)
[2018-08-15] MEDS: guaiFENesin 200 MG TAB PO SCH ×2 (08:27→22:07)
[2018-08-15] MEDS: FUROSEMIDE 20 MG TAB PO SCH (08:28)
[2018-08-15] MEDS: GABAPENTIN 100 MG CAP PO SCH ×2 (08:28→22:09)
[2018-08-15] MEDS: METAMUCIL (PSYLLIUM) PACKET PO SCH ×2 (08:29→21:00)
[2018-08-15] MEDS: CLOPIDOGREL 75 MG TAB PO SCH (08:29)
[2018-08-15] MEDS: CARVedilol 6.25 MG TAB PO SCH ×2 (08:29→22:09)
[2018-08-15] MEDS: amLODIPine 10 MG TAB PO SCH (08:29)
[2018-08-15] MEDS: **hydrALAZINE HCL** 25 MG TAB PO SCH ×3 (08:29→22:09)
[2018-08-15] MEDS: OMEPRAZOLE 20 MG CAP PO SCH (08:29)
[2018-08-15] MEDS: ISOSORBIDE MON. (IMDUR) 30 MG XR TAB PO SCH (08:29)
[2018-08-15] MEDS: MECLIZINE 25 MG TABLET PO SCH ×3 (08:29→22:09)
[2018-08-15] MEDS: **NOTE PATIENT COMMENT** MISC XX SCH (08:30)
--- NOTE | 2018-08-15 12:17 | IPNPDOC ---
Subjective Date Seen The patient was seen on 08/15/18. Subjective Chief Complaint/HPI Patient is a 68-year-old male, recently admitted for altered mental status and found to have right leeanna ischemic stroke. Events since last encounter Up to chair at bedside. reports headache with elevated blood pressure which is getting better. Bedside RN reports blood pressure control has been a bit challenging for the past 24 hours. Night physician had to increase dose Norvasc. Objective Physical Examination General Exam: Positive: Alert, Cooperative, No Acute Distress Eye Exam: Positive: PERRLA, Conjunctiva & lids normal, EOMI ENT Exam: Positive: Atraumatic, Mucous membr. moist/pink, Pharynx Normal Neck Exam: Positive: Supple; Negative: JVD, thyromegaly Chest Exam: Positive: Clear to auscultation, Normal air movement Heart Exam: Positive: Rate Normal, Regular Rhythm Abdomen Exam: Positive: Normal bowel sounds, Soft; Negative: Tenderness Extremity Exam: Positive: Edema (2+ to BLE with venous stasis changes) Skin Exam: Positive: Other skin issue (venous stasis changes, foam dressing to posterior LLE); Negative: Rash Neuro Exam: Positive: Normal Speech, Strength at 5/5 X4 ext, Normal Tone Psych Exam: Positive: Mental status NL (sleepy), Mood NL, Oriented x 3; Negative: Anxiety Assessment /Plan Problems (1) CVA (cerebral vascular accident) Problem Text: -Likely due to uncontrolled blood pressure -S/P ILR placement to monitor for arrhythmia as cause -Currently continued in rehabilitation unit for mobilization and strengthening -Monitoring of blood pressure to keep systolic blood pressure less than 140 (2) Diastolic CHF, acute on chronic Problem Text: -Continue volume control fluid restriction -Continue 60 mg by mouth Lasix daily (3) GERD (gastroesophageal reflux disease) Problem Text: -persisting dysphagia, continue aspiration precautions (4) Diabetes mellitus type 2, insulin dependent Status: Chronic Problem Text: -fingerstick checks prior to meals and at bedtime -continue diabetic diet -coverage with insulin per sliding scale protocol -Continue glipizide (5) Hypertension Status: Chronic Problem Text: -Norvasc, dose increased last night -Holding parameters for hydralazine readjusted: -Continue hydralazine, Imdur, Norvasc (6) Postherpetic neuralgia Status: Acute Problem Text: -Completed treatment with Valtrex, resolved (7) Renal artery stenosis Problem Text: -Outpatient follow-up with cardiology for further input and management -If renal artery stenosis ruled out. Patient will need to be started on WANDA inhibitor at the discretion of nephrology. Given underlying diabetes mellitus (8) VRE (vancomycin resistant enterococcus) culture positive Problem Text: -evaluated by ID specialist, no indication for antibiotic therapy -continue contact precautions (9) Advance care planning Problem Text: -code status is DNR -disposistion to home when rehab completed (10) DVT prophylaxis Problem Text: -heparin 5000 units Q8 Plan/VTE VTE Prophylaxis Ordered?: Yes VS, I&O, 24H, Fishbone Vital Signs/I&O Vital Signs Date Time Temp Pulse Resp B/P (MAP) Pulse Ox O2 Delivery O2 Flow Rate FiO2 08/15/18 08:29 85 164/74 08/15/18 04:00 97.6 18 97 08/10/18 02:00 2.0 I&O- Last 24 Hours up to 6 AM 08/15/18 06:00 Intake Total 770 ml Output Total 600 ml Balance 170 ml Laboratory Data 24H LABS Laboratory Tests 2 08/14/18 16:55: Bedside Glucose (Misc Panel) 203H 08/14/18 19:58: Bedside Glucose (Misc Panel) 213H 08/15/18 06:30: Nucleated Red Blood Cells % (auto) 0.0, Anion Gap 6L, Glomerular Filtration Rate > 60.0, Blood Urea Nitrogen 12, Creatinine 1.20, Sodium Level 141, Potassium Level 3.8, Chloride Level 103, Carbon Dioxide Level 32, Calcium Level 8.5L, Aspartate Amino Transf (AST/SGOT) 12, Alanine Aminotransferase (ALT/SGPT) 14, Alkaline Phosphatase 72, Total Bilirubin 0.2, Total Protein 6.2L, Albumin 2.6L, Magnesium Level 1.6L, Albumin/Globulin Ratio 0.72L CBC/BMP Laboratory Tests 08/15/18 06:30 Red Blood Count 3.74 L, Mean Corpuscular Volume 92.8, Mean Corpuscular Hemoglobin 30.5, Mean Corpuscular Hemoglobin Concent 32.9, Red Cell Distribution Width 13.7, Calcium Level 8.5 L, Aspartate Amino Transf (AST/SGOT) 12, Alanine Aminotransferase (ALT/SGPT) 14, Alkaline Phosphatase 72, Total Bilirubin 0.2, Total Protein 6.2 L, Albumin 2.6 L DAMIEN LICEA. [facility] Aug 15, 2018 12:17
[2018-08-15] MEDS: LIDOCAINE 5% (LIDODERM) PATCH TD SCH (21:00)
[2018-08-15] MEDS: ACETAMINOPHEN TAB 650MG DOSE (2X325MG) PO PRN (22:08)
[2018-08-15] MEDS: PRAVASTATIN 20 MG TAB PO SCH (22:09)
[2018-08-16 02:00] VITALS: BP 190/90
[2018-08-16] MEDS ORDERED: cloNIDine 0.1 MG TAB PO ONE (02:30)
[2018-08-16] MEDS: HEPARIN SOD (PORCINE) 5000 UNITS/ML VIAL SC SCH ×3 (06:23→23:09)
[2018-08-16 06:28] VITALS: BP 158/78
--- NOTE | 2018-08-16 06:39 | IPN ---
DATE OF SERVICE: 08/14/2018 SUBJECTIVE: Patient was seen and examined at the bedside today morning. He was sitting on his sofa today. He is afebrile, hemodynamically stable. He denies any active complaints. Patient's renal function is stable. Creatinine has been fluctuating at around 1.3 and blood pressures are improving with the current regimen. OBJECTIVE: VITAL SIGNS: Temperature is 98.9 degrees Fahrenheit, blood pressure is 148/68, pulse is 91, respiratory of 18, saturating 92% on room air. INTAKE AND OUTPUT: Urine output is not recorded. Weight in the bed scale is not available. PHYSICAL EXAMINATION: GENERAL: Patient is awake, alert, oriented times three, sitting up on the sofa in no apparent distress. HEAD AND NECK EXAM: Extraocular muscles intact. Pupils equally round and reactive to light. Mucous membranes are moist. Neck is supple. There is no JVD. CARDIOVASCULAR: S1, S2 regular rate. No edema of the bilateral lower extremities. RESPIRATORY: Chest is clear to auscultation bilaterally. Bilateral equal air entry. No rales or rhonchi. ABDOMEN: Soft. Positive bowel sounds. Nontender. No organomegaly. MUSCULOSKELETAL: No clubbing or cyanosis. Pulses are 2+. DIRECTOR COLLEGE: No focal deficit. Power is 5/5 in all extremities. LAB REVIEW: CBC showed A WBC of 8.4, hemoglobin was 11.1 yesterday. BMP was also done yesterday. There is no BMP available today. CURRENT INPATIENT MEDICATIONS: The patient's medications were all reviewed by me. He continues to be amlodipine 5 mg daily, Coreg 6.25 mg p.o. twice a day, hydralazine 25 mg p.o. three times a day, isosorbide 30 mg p.o. daily. ASSESSMENT/PLAN: 1. Chronic kidney disease stage III. Patient's renal function is stable. Creatinine has been fluctuating at around 1.3, which is optimal for now. 2. Renovascular hypertension. The patient's blood pressures are optimized with the current multidrug regimen. Continue the current dose of antihypertensives. further dose adjustment will be done over the next 24 hours as needed. 3. Chronic diastolic congestive heart failure. Volume status is optimal. Continue current dose of Lasix 60 mg p.o. daily. Continue current dose of Coreg, hydralazine, isosorbide.
[2018-08-16] MEDS: IPRATROPIUM 0.5MG/ALBUTEROL 2.5MG INH SOL UD 3ML (DUONEB)(J7620) NEB SCH ×3 (08:01→19:48)
[2018-08-16] MEDS: MECLIZINE 25 MG TABLET PO SCH ×3 (08:35→22:24)
[2018-08-16] MEDS: GABAPENTIN 100 MG CAP PO SCH ×2 (08:35→22:24)
[2018-08-16] MEDS: glipiZIDE XL 5 MG TABCR PO SCH (08:36)
[2018-08-16] MEDS: HumaLOG INSULIN (NovoLOG) PER UNIT SC SCH ×4 (08:36→21:00)
[2018-08-16] MEDS: CARVedilol 6.25 MG TAB PO SCH ×2 (08:37→22:24)
[2018-08-16] MEDS: **hydrALAZINE HCL** 25 MG TAB PO SCH ×3 (08:37→22:23)
[2018-08-16] MEDS: CLOPIDOGREL 75 MG TAB PO SCH (08:38)
[2018-08-16] MEDS: amLODIPine 10 MG TAB PO SCH (08:38)
[2018-08-16] MEDS: ISOSORBIDE MON. (IMDUR) 30 MG XR TAB PO SCH (08:38)
[2018-08-16] MEDS: LEVEMIR (INSULIN DETEMIR) 1 UNITS/0.01ML SC SCH ×2 (08:38→22:25)
[2018-08-16] MEDS: OMEPRAZOLE 20 MG CAP PO SCH (08:38)
[2018-08-16] MEDS: FUROSEMIDE 20 MG TAB PO SCH (08:38)
[2018-08-16] MEDS: METAMUCIL (PSYLLIUM) PACKET PO SCH ×2 (08:39→21:00)
[2018-08-16] MEDS: **NOTE PATIENT COMMENT** MISC XX SCH (08:39)
[2018-08-16] MEDS: guaiFENesin 200 MG TAB PO SCH ×2 (08:39→22:23)
[2018-08-16] MEDS: CHLORHEXIDINE GLUCONATE 0.12 % 15ML UDC (PERIDEX ORAL RINSE) SSP SCH ×3 (08:39→22:22)
[2018-08-16 10:00] VITALS: BP 138/67
--- NOTE | 2018-08-16 11:03 | IPN ---
DATE OF SERVICE: 08/15/2018 SUBJECTIVE: Patient was seen and examined at the bedside today morning. Patient denies any active complaints today. His renal function is also improving, creatinine is down to 1.2. He reports that his blood pressure was high yesterday. Otherwise, he denies any active complaints. OBJECTIVE: VITAL SIGNS: Temperature is 98 degrees Fahrenheit, blood pressure 127/74, pulse is 91, respiratory rate of 18, saturating 96% on room air. INTAKE AND OUTPUT: Urine output recorded as 600 mL since overnight. Weight on the bed scale is 109.7 kg. PHYSICAL EXAMINATION GENERAL: The patient is awake, alert, oriented times three, sitting up in the chair, no apparent distress. HEAD AND NECK EXAM: Extraocular muscles intact. Pupils equally round and reactive to light. Mucous membranes are moist. Neck is supple. There is no JVD. CARDIOVASCULAR: S1, S2 regular rate. No edema of the bilateral lower extremities. RESPIRATORY: Chest is clear to auscultation bilaterally. Bilateral equal air entry. No rales or rhonchi. ABDOMEN: Soft. Positive bowel sounds. Nontender. No organomegaly. MUSCULOSKELETAL: No clubbing or cyanosis. Pulses are 2+. DENTAL MANAGER: No focal deficit. Power is 5/5 in all extremities. LABORATORY REVIEW: CBC showed WBC of 8.4, hemoglobin 11.4, platelets are 248. BMP showed sodium 141, potassium 3.8, chloride 103, bicarb 32, BUN 12, creatinine is 1.2, calcium 8.5, magnesium 1.6, albumin is 2.6. CURRENT INPATIENT MEDICATIONS: The patient's medications were all reviewed by me. His amlodipine dose has been changed to 10 mg p.o. daily. He was given an extra dose last night. His glipizide dose has been increased to 5 mg p.o. daily. No other change in the medications today as compared with yesterday. ASSESSMENT/PLAN: 1. Chronic kidney disease stage III. Patient's renal function continues to be stable. Creatinine has been fluctuating at around 1.2 to 1.3. Okay to continue current medications. 2. Renovascular hypertension. The patient is currently on amlodipine 10 mg p.o. daily, Coreg 6.25 mg p.o. twice a day, hydralazine 25 mg p.o. three times a day and isosorbide 30 mg p.o. daily. Continue current dose. 3. Renal artery stenosis. Patient was found to have possible renal artery stenosis on the renal Doppler. I have ordered the MRA of the abdomen without contrast to be done to tomorrow morning. Further recommendations will be done after MRA result is available. 4. Chronic diastolic congestive heart failure. Continue current dose of Lasix 60 mg p.o. daily and Coreg 6.25 mg p.o. twice a day.
--- NOTE | 2018-08-16 11:47 | IPNPDOC ---
Subjective Date Seen The patient was seen on 08/16/18. Subjective Chief Complaint/HPI Patient is a 68-year-old male, recently admitted for altered mental status and found to have right leeanna ischemic stroke. Events since last encounter No complaints this am, denies headache, chest pain, SOB Objective Physical Examination General Exam: Positive: Alert, Cooperative, No Acute Distress Eye Exam: Positive: PERRLA, Conjunctiva & lids normal, EOMI ENT Exam: Positive: Atraumatic, Mucous membr. moist/pink, Pharynx Normal Neck Exam: Positive: Supple; Negative: JVD, thyromegaly Chest Exam: Positive: Clear to auscultation, Normal air movement Heart Exam: Positive: Rate Normal, Regular Rhythm Abdomen Exam: Positive: Normal bowel sounds, Soft; Negative: Tenderness Extremity Exam: Positive: Edema (2+ to BLE with venous stasis changes) Skin Exam: Positive: Other skin issue (venous stasis changes, foam dressing to posterior LLE); Negative: Rash Neuro Exam: Positive: Normal Speech, Strength at 5/5 X4 ext, Normal Tone Psych Exam: Positive: Mental status NL (sleepy), Mood NL, Oriented x 3; Negative: Anxiety Assessment /Plan Problems (1) CVA (cerebral vascular accident) Problem Text: -Likely due to uncontrolled blood pressure -S/P ILR placement to monitor for arrhythmia as cause -Currently continued in rehabilitation unit for mobilization and strengthening (2) Diastolic CHF, acute on chronic Problem Text: -euvolemic -Continue volume control fluid restriction -Continue 60 mg by mouth Lasix daily (3) GERD (gastroesophageal reflux disease) Problem Text: -persisting dysphagia, continue aspiration precautions (4) Diabetes mellitus type 2, insulin dependent Status: Chronic Problem Text: --glipizide was increased to 5mg daily BS is better controlled this am -continue fingerstick checks prior to meals and at bedtime -continue diabetic diet -coverage with insulin per sliding scale protocol (5) Hypertension Status: Chronic Problem Text: -Variable control -continued on Norvasc, Hydralazine, Imdur -MRA ordered by Nephrology today to confirm renal stenosis suspected on US (6) Postherpetic neuralgia Status: Acute Problem Text: -Completed treatment with Valtrex, resolved (7) Renal artery stenosis Problem Text: -MRA renal arteries today -follow findings and recommendations by nephrology (8) VRE (vancomycin resistant enterococcus) culture positive Problem Text: -evaluated by ID specialist, no indication for antibiotic therapy -continue contact precautions (9) Advance care planning Problem Text: -code status is DNR -disposistion to home when rehab completed (10) DVT prophylaxis Problem Text: -heparin 5000 units Q8 Plan/VTE VTE Prophylaxis Ordered?: Yes VS, I&O, 24H, Fishbone Vital Signs/I&O Vital Signs Date Time Temp Pulse Resp B/P (MAP) Pulse Ox O2 Delivery O2 Flow Rate FiO2 08/16/18 10:00 98.2 73 18 138/67 (90) 97 08/10/18 02:00 2.0 I&O- Last 24 Hours up to 6 AM 08/16/18 06:00 Intake Total 1080 ml Balance 1080 ml Laboratory Data 24H LABS Laboratory Tests 2 08/15/18 12:08: Bedside Glucose (Misc Panel) 320H 08/15/18 16:46: Bedside Glucose (Misc Panel) 164H 08/15/18 21:53: Bedside Glucose (Misc Panel) 176H 08/16/18 06:25: Bedside Glucose (Misc Panel) 187H DAMIEN LICEA [facility] Aug 16, 2018 11:47
--- NOTE | 2018-08-16 12:32 | REP ---
MRA RENAL ARTERIES: MRA renal arteries is performed utilizing coronal and axial T2 localizing sequences with 3D [id number] and MIP reconstruction images. The abdominal aorta at the level of the renal arteries is normal in caliber. The mean right renal artery demonstrates moderately severe stenosis just distal to its origin extending for a length of 4 mm. There is mild to moderate diffuse narrowing of the 1 cm segment just distal to that. There is mild diffuse narrowing of the proximal left main renal artery with no significant stenosis identified. 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 The more proximal common bile duct is not dilated. IMPRESSION: Moderately severe stenosis of the main right renal artery just distal to its origin extending for a length of 4 mm, The adjacent more distal 1 cm portion of the main right renal artery demonstrates mild to moderate diffuse narrowing. There is mild diffuse narrowing of the main left renal artery without significant stenosis. 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 Electronically Signed by Denys Vanessa MD 08/16/2018 04:22 P
[2018-08-16 14:00] VITALS: BP 129/68
[2018-08-16 18:00] VITALS: BP 152/72
--- NOTE | 2018-08-16 19:13 | CR.PDOC ---
General Date of Consultation: Aug 16, 2018 Consultation REASON FOR CONSULTATION/CHIEF COMPLAINT: Hypertension and JOSEFINA HISTORY OF PRESENT ILLNESS: Mr Rosario is a very pleasant 68yo gentleman s/p pontin e CVA june 2018, now recovering in rehab, with recent HTN that has been challenging to control despite 2 diuretics and 3 antihypertensives. SBP overnight was 190. He underwent a renal US that revealed bilat kidneys are normal size >13cm, but resistive indices are high: 0.86, and the bilat PSV and RAR are also a bit elevated: R renal artery PSV 287, RAR 3 and L renal artery PSV 305, RAR 2.3. This does not quite meet critieria for >60% stenosis on the left, but it may be clinically significant on the right. MRA was performed for further evaluation and I have reviewed these images as well. There is a focal proximal R renal artery stenosis that may be >60%, which would correlate with duplex findings. This is sufficient evidence of JOSEFINA and thus we recommend a thomas l arteriogram +/- intervention based on findings. Risks, benefits and alternatives to a renal arteriogram with potential intervention were explained to the patient and all questions were answered. Informed consent obtained. ALLERGIES: Please see below. HOME MEDICATIONS: Please see below. PAST MEDICAL HISTORY: CAD, CHF, prostate cancer, dyslipidemia, DMII, multiple CVAs, Renal in sufficiency PAST SURGICAL HISTORY: Cholecystectomy, CABG, AVR FAMILY HISTORY: Colon cancer, prostate cancer SOCIAL HISTORY: Denies tobacco use, ETOH, illicit drug use REVIEW OF SYSTEMS: CONSTITUTIONAL: Denies f/c HEENT: Denies vision changes, +dyphagia+dysphasia CARDIOVASCULAR: +palpitations RESPIRATORY: +SOB on exertion GENITOURINARY: denies dyuria MUSCULOSKELETAL: denies claudication GASTROINTESTINAL: denies n/v SKIN: denies skin cancer, rashes NEUROLOGICAL: +recent CVA, denies [facility] PSYCHIATRIC: denies anxiety/depression ENDOCRINE: +DM HEMATOLOGIC/LYMPHATIC: +easy bruising ALLERGIC/IMMUNOLOGIC: denies PHYSICAL EXAMINATION: VITAL SIGNS: Please see below. GENERAL APPEARANCE: Well developed. NAD. HEENT: NC, vision and hearing grossly intact. RESPIRATORY: CTA. CARDIOVASCULAR: RRR. ABDOMEN: soft NT. EXTREMITIES: +distal pulses, +BLE edema. NEUROLOGICAL: Some mild motor dysfunction BUE. Speech clear but a bit delayed. PSYCHIATRIC: pleasant and cooperative. LABORATORY DATA: Please see below. ASSESSMENT/PLAN: 1. Renal arteriogram +/- intervention. Will use minimal contrast 2/2 known renal insufficiency. Likely procedure will be later in the afternoon, so I told the patient and the RN that a small early bfast was ok, but NPO otherwise. 2. Recommend continue antiplatelet, statin. No need to hold plavix for procedure, and pt will need at least 60 days continued plavix post procedure if stent placed. Vital Signs/I&O Vital Signs Date Time Temp Pulse Resp B/P (MAP) Pulse Ox O2 Delivery O2 Flow Rate FiO2 08/16/18 17:39 132/67 08/16/18 14:00 97.6 77 18 97 08/10/18 02:00 2.0 I&O- Last 24 Hours up to 6 AM 08/16/18 06:00 Intake Total 1080 ml Balance 1080 ml Laboratory Data Labs 24H Laboratory Tests 2 08/15/18 21:53: Bedside Glucose (Misc Panel) 176H 08/16/18 06:25: Bedside Glucose (Misc Panel) 187H 08/16/18 12:20: Bedside Glucose (Misc Panel) 301H 08/16/18 17:04: Bedside Glucose (Misc Panel) 240H Allergies Coded Allergies: No Known Allergies (Unverified , 07/19/18) Home Medications Scheduled Amlodipine Besylate (Amlodipine Besylate) 10 Mg Tablet, 10 MG PO DAILY, #30 Carvedilol (Carvedilol) 6.25 Mg Tablet, 6.25 MG PO BID, #60 Cholecalciferol (Vitamin D3) (Vitamin D3) 5,000 Unit Capsule, 5,000 UNIT PO QHS, (Reported) Clopidogrel Bisulfate (Clopidogrel) 75 Mg Tablet, 75 MG PO DAILY, #30 Fluoxetine Hcl (Fluoxetine HCl) 40 Mg Capsule, 40 MG PO DAILY, (Reported) Furosemide (Furosemide) 20 Mg Tablet, 60 MG PO DAILY, #90 Gabapentin (Gabapentin) 100 Mg Capsule, 100 MG PO BID, #60 Glipizide (Glipizide ER) 5 Mg Tab.er.24, 5 MG PO DAILY@0730, #30 Hydralazine HCl (Hydralazine HCl) 25 Mg Tablet, 25 MG PO TID, #90 Insulin Detemir (Levemir) 100 Unit/1 Ml Vial, 24 UNITS SC BID, #1 Isosorbide Mononitrate (Isosorbide Mononitrate ER) 30 Mg Tab.er.24h, 30 MG PO DAILY, #30 Omeprazole (Omeprazole) 20 Mg Tab, 20 MG PO DAILY, (Reported) Omeprazole (Omeprazole) 20 Mg Capsule.dr, 20 MG PO DAILY, #30 Pravastatin Sodium (Pravastatin Sodium) 40 Mg Tablet, 40 MG PO QHS, (Reported) Pravastatin Sodium (Pravachol) 20 Mg Tablet, 40 MG PO QHS, #60 Scheduled PRN Acetaminophen (Acetaminophen) 325 Mg Tab, 650 MG PO Q4H PRN for PAIN / FEVER, (Reported) Meclizine HCl (Meclizine HCl) 25 Mg Tablet, 25 MG PO TID PRN for DIZZINESS, #90 Nitroglycerin (Nitrostat) 0.4 Mg Subl, 0.4 MG SL NITRO PRN for CHEST PAIN, (Reported) CHUN BRADFORD MD Aug 16, 2018 19:13
--- NOTE | 2018-08-16 19:58 | IPNPDOC ---
PM&R Progress Note DATE OF SERVICE: Aug 17, 2018 Blending Technician Progress Note Subjective: Patient reports he no longer is dizzy and he feel comfortable thickening his own liquid. REVIEW OF SYSTEMS: The following is a completed review of systems and has been reviewed. Review of systems otherwise unremarkable. PAIN: Patient self reports no pain EYES: +intermittent right eye blurriness EARS, NOSE, & THROAT:+dysphagia CARDIOVASCULAR: denies chest pain or palpitations PULMONARY: Negative. Denies shortness of breath GASTROINTESTINAL: +diarrhea (improved) GENITOURINARY: Negative for dysuria or incontinence MUSCULOSKELETAL: LUE weakness NEUROLOGICAL: LUE weakness, peripheral neuropathy, intermittent dizziness HEMATOLOGICAL: Negative SKIN: bilateral anterior guerin ulcers PSYCHIATRIC: Unremarkable All other review of systems found to be negative. PHYSICAL EXAMINATION: VITAL SIGNS: Please see below. GENERAL: Pleasant and cooperative. No acute distress. HEENT: PERRL. Extraocular movements intact. Clear conjunctiva CARDIOVASCULAR: Regular rate and rhythm. No murmurs, rubs, or gallops LUNGS: Clear to auscultation bilaterally. No wheezes. No rhonchi ABDOMEN: Soft, nontender, nondistended. Positive bowel sounds. Normal active bowel sounds. NEUROLOGICAL: Alert and oriented times three. Cranial nerves II through XII grossly intact. Sensation to light touch diminished in stocking pattern in LE, intact in UE EXTREMITIES: 5\\5 strength bilateral upper extremities, mild pronator drift on the left. 5\\5 strength right lower extremity. 5/5 strength in left lower extremity. bilateral edema (-) Homans bilat SKIN: hyperpigmentation of caves with scattered dry ulcers bilat anterior shins and dorsum of D2 on the left ASSESSMENT: 68-year-old M with past medical history of CAD s/p CABG, diastolic CHF, stroke who presents status post right pontine stroke complicated by dysphagia and pneumonia. PLAN: 1. 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 Neuro: pmh 2 strokes in 2014 and recent right pontine stroke- c/u ASA 325mg daily and statin therapy- f/u outpatient neurology -episode of AMS with increased dizziness 07/30/18, CT negative for new stroke, repeat MRI also negative -episode of dizziness and elevated BP this 08/05/18, repeat CT negative, repeat MRi showing extension of previous right pontine stroke, "new small acute infarction in the right posterolateral leeanna", patient c/us to be clinically stable new deficits, BP better controlled -c/u meclizine to 25mg TID for persistent intermittent dizziness-improving 3. cardiac: pmh CAD s/p CABG, Aortic valve replacement, poorly controlled HTN and recent ECHO 07/24/18 showing grade 2 diastolic dysfunction- c/u diuretics and BP meds, adjust prn- medicine consulted to assist with management and lowered total daily dosing to 60mg, Train Announcer improving -HTN improving on hydralazine, Imdur, amlodipine, and carvedilol, -renal consulted to assist with BP management in setting of renal artery stenosis, recs appreciated -c/u fluid restrict to 1800cc and Lasix for CHF- medicine following -Renal US positive for renal artery stenosis will set up with cardiology for IR intervention upon discharge or defer to renal recs -MRA 08/16/18- "Moderately severe stenosis of the main right renal artery just distal to its origin extending for a length of 4 mm, The adjacent more distal 1 cm portion of the main right renal artery demonstrates mild to moderate diffuse narrowing. There is mild diffuse narrowing of the main left renal artery without significant stenosis."- will set up outpatient f/u with renal for further management -c/u nocturnal 02-will refer for sleep study 3. Resp: s/p recent aspiration pneumonia and currently off antibiotics, - encourage incentive spirometry and c/u breathing treatments -Chlorohexidine mouth wash to protect against aspiration PNA-stable improving cough and no leukocytosis 4. Endo: pmh dm with severe peripheral neuropathy- c/i ISS and adjust prn, will recommend diabetic shoes 5. GI ppx: prilosec, immodium prn for loose stools- c diff negative, improving -will defer GI scope for now for concern for esophageal dysmotility 6. DVT ppx: TEDs and heparin 7. SKin: joel-wrap bilat LE for edema 8. ID: Admission Ucx + for VRE, asymptomatic, no treatment ordered, ID recs appreciated - Facial Zoster- previously incomplete treatment, s/p course of Valtrex 1g TID x 7 days and steroid eye drop to prevent corneal scarring-discussed with medicine, patient's symptoms improving 9. Dispo: 08/17/18 to home, progressing towards goals Allergies Coded Allergies: No Known Allergies (Unverified , 07/19/18) Vital Signs Vital Signs Date Time Temp Pulse Resp B/P (MAP) Pulse Ox O2 Delivery O2 Flow Rate FiO2 08/16/18 17:39 132/67 08/16/18 14:00 97.6 77 18 97 08/10/18 02:00 2.0 Laboratory Data Labs 24H Laboratory Tests 2 08/15/18 21:53: Bedside Glucose (Misc Panel) 176H 08/16/18 06:25: Bedside Glucose (Misc Panel) 187H 08/16/18 12:20: Bedside Glucose (Misc Panel) 301H 08/16/18 17:04: Bedside Glucose (Misc Panel) 240H Current Medications Current Medications Current Medications Acetaminophen (Tylenol Tab) 650 mg Q4HP PRN PO MILD PAIN (PS 1-4) Last administered on 08/15/18at 22:08; Start 07/28/18 at 18:45 Albuterol/ Ipratropium (Duoneb (Ipr 0.5mg/Alb 2.5mg)) 3 ml RTID NEB Last administered on 08/16/18at 19:48; Start 07/29/18 at 20:00 Amlodipine Besylate (Norvasc) 5 mg BID PO Last administered on 08/06/18at 07:44; Start 08/05/18 at 21:00; Stop 08/06/18 at 14:06; Status DC Amlodipine Besylate (Norvasc) 5 mg DAILY PO Last administered on 08/14/18at 09:26; Start 08/12/18 at 09:00; Stop 08/15/18 at 01:48; Status DC Amlodipine Besylate (Norvasc) 5 mg DAILY PO Last administered on 08/05/18at 08:06; Start 08/01/18 at 09:00; Stop 08/05/18 at 12:18; Status DC Amlodipine Besylate (Norvasc) 5 mg DAILY PO Last administered on 08/11/18at 08:09; Start 08/07/18 at 09:00; Stop 08/11/18 at 10:02; Status DC Amlodipine Besylate (Norvasc) 10 mg DAILY PO Last administered on 08/16/18 08:38; Start 08/15/18 at 09:00 Aspirin (Aspirin) 325 mg DAILY PO Last administered on 08/05/18 08:03; Start 07/29/18 at 09:00; Stop 08/05/18 at 19:10; Status DC Carvedilol (COReg) 6.25 mg BID PO Last administered on 08/16/18 08:37; Start 07/30/18 at 12:00 Chlorhexidine Gluconate (Peridex Oral Rinse) 15 ml TID SSP Last administered on 08/16/18 17:36; Start 07/29/18 at 16:00 Clonidine HCl (Catapres) 0.1 mg QHS PO Last administered on 07/31/18 20:58; Start 07/29/18 at 21:00; Stop 08/01/18 at 14:22; Status DC Clopidogrel Bisulfate (PLAVix) 75 mg DAILY PO Last administered on 08/16/18 08:38; Start 08/06/18 at 09:00 Dextrose (Dextrose 50%) 25 ml ASDIRECTED PRN IV SEE LABEL COMMENTS; Start 07/28/18 at 18:45 Furosemide (Lasix) 40 mg BID@,17 PO Last administered on 08/03/18 16:22; Start 07/29/18 at 09:00; Stop 08/03/18 at 18:06; Status DC Furosemide (Lasix) 60 mg DAILY PO Last administered on 08/16/18 08:38; Start 08/04/18 at 09:00 Gabapentin (Neurontin) 100 mg BID PO Last administered on 08/16/18 08:35; Start 08/03/18 at 21:00 Gabapentin (Neurontin) 100 mg QID PO Last administered on 08/03/18 12:01; Start 07/28/18 at 21:00; Stop 08/03/18 at 13:00; Status DC Glipizide (Glucotrol Xl) 5 mg DAILY@0730 PO Last administered on 08/16/18 08:36; Start 08/16/18 at 07:30 Glipizide (Glucotrol) 2.5 mg DAILY@0730 PO Last administered on 6/16/19at 08:26; Start 08/14/18 at 13:00; Stop 08/15/18 at 12:14; Status DC Glucagon (Glucagon) 1 mg ASDIRECTED PRN SC SEE LABEL COMMENTS; Start 07/28/18 at 18:45 Glucose (Glucose) 16 GM ASDIRECTED PRN PO SEE LABEL COMMENTS; Start 07/28/18 at 18:45 Guaifenesin (Robitussin Tab) 400 mg BID PO Last administered on 08/15/18at 22:07; Start 07/29/18 at 21:00 Heparin Sodium (Porcine) (Heparin) 5,000 units Q8H SC Last administered on 08/16/18at 12:58; Start 07/28/18 at 22:00 Hydralazine HCl (Apresoline) 25 mg Q6HP PRN PO prn for >140 sBP Last administered on 07/29/18at 09:13; Start 07/28/18 at 18:45; Stop 07/29/18 at 10:44; Status DC Hydralazine HCl (Apresoline) 25 mg TID PO Last administered on 08/16/18at 17:39; Start 08/02/18 at 16:00 Hydralazine HCl (Apresoline) 50 mg Q6HP PRN PO prn for >140 sBP; Start 07/29/18 at 10:45; Stop 07/29/18 at 10:51; Status DC Hydralazine HCl (Apresoline) 50 mg Q6HP PRN PO prn for >140 sBP Last administered on 07/30/18at 10:57; Start 07/29/18 at 17:00; Stop 07/30/18 at 10:59; Status DC Hydralazine HCl (Apresoline) 50 mg TID PO Last administered on 08/02/18at 08:17; Start 07/30/18 at 16:00; Stop 08/02/18 at 10:42; Status DC Insulin Detemir (Levemir Insulin) 18 units BID SC Last administered on 08/11/18at 08:06; Start 07/28/18 at 21:00; Stop 08/11/18 at 10:02; Status DC Insulin Detemir (Levemir Insulin) 22 units BID SC Last administered on 08/12/18at 08:46; Start 08/11/18 at 21:00; Stop 08/12/18 at 10:01; Status DC Insulin Detemir (Levemir Insulin) 24 units BID SC Last administered on 08/16/18at 08:38; Start 08/12/18 at 21:00 Insulin Human Lispro (HumaLOG INSULIN) SEE PROTOCOL TABLE AC SC Last administered on 08/16/18at 17:36; Start 07/29/18 at 07:30 Insulin Human Lispro (HumaLOG INSULIN) SEE PROTOCOL TABLE QHS SC Last administered on 08/12/18at 20:53; Start 07/28/18 at 21:00 Isosorbide Mononitrate (Imdur) 30 mg DAILY PO Last administered on 08/16/18at 08:38; Start 07/31/18 at 09:00 Labetalol HCl (Normodyne, Trandate) 10 mg STAT STAT IV ; Start 08/05/18 at 10:18; Stop 08/05/18 at 10:19; Status Cancel Lidocaine (Lidoderm Patch) 1 patch QHS TD Last administered on 08/10/18at 21:16; Start 08/10/18 at 21:00 Lisinopril (Prinivil) 20 mg BID PO Last administered on 07/31/18at 10:00; Start 07/29/18 at 21:00; Stop 07/31/18 at 11:53; Status DC Lisinopril (Prinivil) 20 mg DAILY PO Last administered on 07/29/18at 08:10; Start 07/29/18 at 09:00; Stop 07/29/18 at 10:44; Status DC Loperamide HCl (Imodium) 2 mg ASDIRECTED PRN PO DIARRHEA; Start 08/03/18 at 17:30 Meclizine HCl (Antivert) 12.5 mg QHS PO Last administered on 08/02/18at 21:09; Start 07/31/18 at 21:00; Stop 08/03/18 at 17:29; Status DC Meclizine HCl (Antivert) 12.5 mg TID PO Last administered on 07/31/18at 10:00; Start 07/30/18 at 09:00; Stop 07/31/18 at 11:24; Status DC Meclizine HCl (Antivert) 12.5 mg TID PO ; Start 08/05/18 at 09:00; Stop 08/05/18 at 10:08; Status DC Meclizine HCl (Antivert) 12.5 mg TID PO Last administered on 08/10/18at 08:43; Start 08/05/18 at 16:00; Stop 08/10/18 at 17:13; Status DC Meclizine HCl (Antivert) 25 mg TID PO Last administered on 08/16/18at 17:35; Start 08/10/18 at 21:00 Metoprolol Tartrate (Lopressor) 50 mg BID PO Last administered on 08/01/18at 21:35; Start 07/28/18 at 21:00; Stop 08/02/18 at 10:51; Status DC Nitroglycerin (Nitrostat (1/ 150)) 0.4 mg Q5MP PRN SL CHEST PAIN; Start at 18:45 Non-Formulary Medication ( See Comment Field Below ) REMOVE LIDODERM PATCH DAILY XX Last administered on 08/11/18at 08:11; Start 08/11/18 at 09:00 Omeprazole (PriLOSEC) 20 mg DAILY PO ; Start 07/29/18 at 09:00; Stop 07/29/18 at 09:00; Status DC Omeprazole (PriLOSEC) 20 mg DAILY PO Last administered on 08/16/18at 08:38; Start 07/29/18 at 09:00 Ondansetron HCl (ZOFRAN INJection) 4 mg Q6HP PRN IV NAUSEA OR VOMITING Last administered on 08/05/18at 05:50; Start 08/05/18 at 05:45 Ondansetron HCl (Zofran) 4 mg Q6HP PRN PO NAUSEA Last administered on 07/30/18at 10:06; Start 07/28/18 at 18:45; Stop 08/05/18 at 05:33; Status DC Oxcarbazepine (Trileptal) 150 mg BID PO Last administered on 08/02/18at 08:14; Start 07/31/18 at 21:00; Stop 08/02/18 at 10:44; Status DC Oxcarbazepine (Trileptal) 150 mg DAILY@2000 PO Last administered on 08/02/18at 21:09; Start 08/02/18 at 20:00; Stop 08/03/18 at 18:06; Status DC Oxcarbazepine (Trileptal) 150 mg QAM PO Last administered on 07/31/18at 10:04; Start 07/29/18 at 09:00; Stop 07/31/18 at 11:26; Status DC Oxcarbazepine (Trileptal) 300 mg QHS PO Last administered on 07/30/18at 21:43; Start 07/28/18 at 21:00; Stop 07/31/18 at 11:26; Status DC Oxymetazoline HCl (Afrin) 2 spray ONCE PRN NA DISCOMFORT (SEE LABEL COMMENTS; Start 08/10/18 at 10:00 Pantoprazole Sodium (Protonix) 40 mg QPM PO ; Start 07/29/18 at 21:00; Stop 07/29/18 at 21:00; Status DC Potassium Chloride (Micro-K Extencaps) 20 meq DAILY PO Last administered on 08/05/18at 08:04; Start 07/29/18 at 09:00; Stop 08/05/18 at 12:20; Status DC Pravastatin Sodium (Pravachol) 40 mg QHS PO Last administered on 08/15/18at 22:09; Start 07/28/18 at 21:00 Prednisolone Acetate (Predforte 1% Ophth Susp) 2 drop QID OD Last administered on 08/06/18 07:46; Start 08/03/18 at 14:15; Stop 08/06/18 at 11:19; Status DC Psyllium Hydrophilic Mucilloid (Metamucil) 1 pkt BID PO Last administered on 08/14/18at 09:27; Start 08/03/18 at 21:00 Spironolactone (Aldactone) 12.5 mg DAILY PO Last administered on 08/06/18 07:45; Start 08/06/18 at 09:00; Stop 08/07/18 at 16:01; Status DC Valacyclovir HCl (Valtrex) 1,000 mg DAILY PO ; Start 08/03/18 at 15:00; Stop 08/03/18 at 15:26; Status DC Valacyclovir HCl (Valtrex) 1,000 mg TID PO Last administered on 08/06/18at 07:44; Start 08/03/18 at 16:00; Stop 08/06/18 at 11:19; Status DC KOFI REDMOND MD Aug 16, 2018 19:58
[2018-08-16] MEDS: LIDOCAINE 5% (LIDODERM) PATCH TD SCH (21:00)
[2018-08-16 22:00] VITALS: BP 124/62
[2018-08-16] MEDS: PRAVASTATIN 20 MG TAB PO SCH (22:23)
--- NOTE | 2018-08-16 22:55 | IPN ---
DATE: 08/16/2018 SUBJECTIVE: The patient was seen and examined at the bedside today, morning. He is afebrile, hemodynamically stable. There are wide fluctuations in his blood pressures from 120s to 190 systolic. Patient is going to have an MRA of the abdomen done to rule out renal artery stenosis. He otherwise denies any active complaints. He does not have the labs done today/morning. Latest creatinine was 1.2 yesterday. OBJECTIVE: VITAL SIGNS: Temperature is 98.2 degrees Fahrenheit, blood pressure 138/67, pulse is 73, respiratory rate of 18, saturating 97% on room air. Highest blood pressure was 190/90 last night. INTAKE/OUTPUT: Urine output recorded yesterday 600 mL. No urine output recorded so far today since overnight. Weight on the bed scale was 109.7 kg yesterday. PHYSICAL EXAMINATION: GENERAL: The patient is awake, alert, oriented times three, sitting up in the chair, in no apparent distress. HEAD AND NECK EXAM: Extraocular muscles intact. Pupils equally round and reactive to light. Mucous membranes are moist. Neck is supple. There is no jugular venous distention (JVD). CARDIOVASCULAR: S1, S2, regular rate. No edema of the bilateral lower extremities. RESPIRATORY: Chest is clear to auscultation bilaterally. Bilateral equal air entry. No rales or rhonchi. ABDOMEN: Abdomen is soft. Positive bowel sounds, nontender. No organomegaly. MUSCULOSKELETAL: No clubbing or cyanosis. Pulses are 2+. 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 Power is 5/5 in all extremities. LAB REVIEW: CBC showed a WBC of 8.4, hemoglobin 11.4 and that is from yesterday and yesterday morning BMP also showed a creatinine of 1.2. CURRENT INPATIENT MEDICATIONS: The patient's medications were all reviewed by me. He was given a dose of clonidine 0.2 mg by mouth times one dose last night. No other change in the medications today as compared with yesterday. ASSESSMENT AND PLAN: 1. Chronic kidney disease, stage III. Renal function is stable. Latest creatinine was 1.2 yesterday. Continue with the current medications. 2. Renovascular hypertension. Patient is still having episodes of hypertension. Overnight he was given a dose of clonidine. Continue current dose of amlodipine, Coreg, hydralazine and isosorbide. 3. Renal artery stenosis. Patient is going to have an MRA of the abdomen to rule out renal artery stenosis. If he does have significant stenosis, then I will get vascular surgery on board. 4. Chronic diastolic congestive heart failure. Volume status is optimized with current dose of Lasix. Continue Coreg, hydralazine and isosorbide as well.
[2018-08-17 02:00] VITALS: BP 120/58
[2018-08-17 06:00] VITALS: BP 165/72
[2018-08-17] MEDS: HumaLOG INSULIN (NovoLOG) PER UNIT SC SCH ×2 (07:30→11:46)
[2018-08-17] MEDS: glipiZIDE XL 5 MG TABCR PO SCH (07:30)
[2018-08-17] MEDS: LEVEMIR (INSULIN DETEMIR) 1 UNITS/0.01ML SC SCH (07:55)
[2018-08-17] MEDS: IPRATROPIUM 0.5MG/ALBUTEROL 2.5MG INH SOL UD 3ML (DUONEB)(J7620) NEB SCH ×2 (08:00→15:26)
[2018-08-17] MEDS: METAMUCIL (PSYLLIUM) PACKET PO SCH (09:00)
[2018-08-17] MEDS: **NOTE PATIENT COMMENT** MISC XX SCH (09:00)
[2018-08-17] MEDS: guaiFENesin 200 MG TAB PO SCH (09:00)
[2018-08-17] MEDS: CHLORHEXIDINE GLUCONATE 0.12 % 15ML UDC (PERIDEX ORAL RINSE) SSP SCH (09:03)
[2018-08-17 09:04] VITALS: BP 154/62
[2018-08-17] MEDS: GABAPENTIN 100 MG CAP PO SCH (09:04)
[2018-08-17] MEDS: CLOPIDOGREL 75 MG TAB PO SCH (09:04)
[2018-08-17] MEDS: OMEPRAZOLE 20 MG CAP PO SCH (09:04)
[2018-08-17] MEDS: ISOSORBIDE MON. (IMDUR) 30 MG XR TAB PO SCH (09:04)
[2018-08-17] MEDS: MECLIZINE 25 MG TABLET PO SCH (09:04)
[2018-08-17] MEDS: **hydrALAZINE HCL** 25 MG TAB PO SCH (09:05)
[2018-08-17] MEDS: CARVedilol 6.25 MG TAB PO SCH (09:05)
[2018-08-17] MEDS: amLODIPine 10 MG TAB PO SCH (09:05)
[2018-08-17] MEDS ORDERED: NS 1,000 ML IV SCH (09:15)
[2018-08-17] MEDS ORDERED: OMEP-218 PO (10:12)
[2018-08-17] MEDS ORDERED: PRAV1TAB39 PO (10:12)
[2018-08-17] MEDS ORDERED: CARV6.25 PO (10:12)
[2018-08-17] MEDS ORDERED: INSUDET SC (10:12)
[2018-08-17] MEDS ORDERED: GLIP5TAB20 PO (10:12)
[2018-08-17] MEDS ORDERED: HYDR25TA PO (10:12)
[2018-08-17] MEDS ORDERED: GABA-1171 PO (10:12)
[2018-08-17] MEDS ORDERED: MECL-86 PO (10:12)
[2018-08-17] MEDS ORDERED: ISOS30TA4 PO (10:12)
[2018-08-17] MEDS ORDERED: CLOP75TA2 PO (10:12)
[2018-08-17] MEDS ORDERED: AMLO10TA5 PO (10:12)
[2018-08-17] MEDS ORDERED: FURO20TA2 PO (10:12)
--- NOTE | 2018-08-17 10:15 | IPNPDOC ---
PM&R Progress Note DATE OF SERVICE: Aug 17, 2018 Oncology Pharmacist Progress Note Subjective: Patient reports he feels well and is ready to home today after therapy if his sister is able to pick him up. REVIEW OF SYSTEMS: The following is a completed review of systems and has been reviewed. Review of systems otherwise unremarkable. PAIN: Patient self reports no pain EYES: +intermittent right eye blurriness EARS, NOSE, & THROAT:+dysphagia CARDIOVASCULAR: denies chest pain or palpitations PULMONARY: Negative. Denies shortness of breath GASTROINTESTINAL: +diarrhea (improved) GENITOURINARY: Negative for dysuria or incontinence MUSCULOSKELETAL: LUE weakness NEUROLOGICAL: LUE weakness, peripheral neuropathy, intermittent dizziness HEMATOLOGICAL: Negative SKIN: bilateral anterior guerin ulcers PSYCHIATRIC: Unremarkable All other review of systems found to be negative. PHYSICAL EXAMINATION: VITAL SIGNS: Please see below. GENERAL: Pleasant and cooperative. No acute distress. HEENT: PERRL. Extraocular movements intact. Clear conjunctiva CARDIOVASCULAR: Regular rate and rhythm. No murmurs, rubs, or gallops LUNGS: Clear to auscultation bilaterally. No wheezes. No rhonchi ABDOMEN: Soft, nontender, nondistended. Positive bowel sounds. Normal active bowel sounds. NEUROLOGICAL: Alert and oriented times three. Cranial nerves II through XII grossly intact. Sensation to light touch diminished in stocking pattern in LE, intact in UE EXTREMITIES: 5\\5 strength bilateral upper extremities, mild pronator drift on the left. 5\\5 strength right lower extremity. 5/5 strength in left lower extremity. bilateral edema (-) Homans bilat SKIN: hyperpigmentation of caves with scattered dry ulcers bilat anterior shins and dorsum of D2 on the left ASSESSMENT: 68-year-old M with past medical history of CAD s/p CABG, diastolic CHF, stroke who presents status post right pontine stroke complicated by dysphagia and pneumonia. PLAN: 1. 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 Neuro: pmh 2 strokes in 2014 and recent right pontine stroke- c/u ASA 325mg daily and statin therapy- f/u outpatient neurology -episode of AMS with increased dizziness 07/30/18, CT negative for new stroke, repeat MRI also negative -episode of dizziness and elevated BP this 08/05/18, repeat CT negative, repeat MRi showing extension of previous right pontine stroke, "new small acute infarction in the right posterolateral leeanna", patient c/us to be clinically stable new deficits, BP better controlled -c/u meclizine to 25mg TID for persistent intermittent dizziness-improving 3. cardiac: pmh CAD s/p CABG, Aortic valve replacement, poorly controlled HTN and recent ECHO 07/24/18 showing grade 2 diastolic dysfunction- c/u diuretics and BP meds, adjust prn- medicine consulted to assist with management and lowered total daily dosing to 60mg, Front Maker improving -HTN improving on hydralazine, Imdur, amlodipine, and carvedilol, -renal consulted to assist with BP management in setting of renal artery stenosis, recs appreciated -c/u fluid restrict to 1800cc and Lasix for CHF- medicine following -Renal US positive for renal artery stenosis will set up with cardiology for IR intervention upon discharge or defer to renal recs -MRA 08/16/18- "Moderately severe stenosis of the main right renal artery just distal to its origin extending for a length of 4 mm, The adjacent more distal 1 cm portion of the main right renal artery demonstrates mild to moderate diffuse narrowing. There is mild diffuse narrowing of the main left renal artery without significan t stenosis."- will set up outpatient f/u with renal for further management -c/u nocturnal 02-will refer for sleep study 3. Resp: s/p recent aspiration pneumonia and currently off antibiotics, - encourage incentive spirometry and c/u breathing treatments -Chlorohexidine mouth wash to protect against aspiration PNA-stable improving cough and no leukocytosis 4. Endo: pmh dm with severe peripheral neuropathy- c/i ISS and adjust prn, will recommend diabetic shoes 5. GI ppx: prilosec, immodium prn for loose stools- c diff negative, improving -will defer GI scope for now for concern for esophageal dysmotility 6. DVT ppx: TEDs and heparin 7. SKin: joel-wrap bilat LE for edema 8. ID: Admission Ucx + for VRE, asymptomatic, no treatment ordered, ID recs reno reciated - Facial Zoster- previously incomplete treatment, s/p course of Valtrex 1g TID x 7 days and steroid eye drop to prevent corneal scarring-discussed with medicine, patient's symptoms improving 9. Dispo: 08/17/18 to home, progressing towards goals Allergies Coded Allergies: No Known Allergies (Unverified , 07/19/18) Vital Signs Vital Signs Date Time Temp Pulse Resp B/P (MAP) Pulse Ox O2 Delivery O2 Flow Rate FiO2 08/17/18 09:05 78 08/17/18 09:04 154/62 08/17/18 06:00 97.8 18 96 Laboratory Data Labs 24H Laboratory Tests 2 08/16/18 12:20: Bedside Glucose (Misc Panel) 301H 08/16/18 17:04: Bedside Glucose (Misc Panel) 240H 08/16/18 20:22: Bedside Glucose (Misc Panel) 207H 08/17/18 05:52: Bedside Glucose (Misc Panel) 197H Current Medications Current Medications Current Medications Acetaminophen (Tylenol Tab) 650 mg Q4HP PRN PO MILD PAIN (PS 1-4) Last administered on 08/15/18at 22:08; Start 07/28/18 at 18:45 Albuterol/ Ipratropium (Duoneb (Ipr 0.5mg/Alb 2.5mg)) 3 ml RTID NEB Last admini stered on 08/16/18at 19:48; Start 07/29/18 at 20:00 Amlodipine Besylate (Norvasc) 5 mg BID PO Last administered on 08/06/18at 07:44; Start 08/05/18 at 21:00; Stop 08/06/18 at 14:06; Status DC Amlodipine Besylate (Norvasc) 5 mg DAILY PO Last administered on 08/14/18 09:26; Start 08/12/18 at 09:00; Stop 08/15/18 at 01:48; Status DC Amlodipine Besylate (Norvasc) 5 mg DAILY PO Last administered on 08/05/18 08:06; Start 08/01/18 at 09:00; Stop 08/05/18 at 12:18; Status DC Amlodipine Besylate (Norvasc) 5 mg DAILY PO Last administered on 08/11/18at 08:09; Start 08/07/18 at 09:00; Stop 08/11/18 at 10:02; Status DC Amlodipine Besylate (Norvasc) 10 mg DAILY PO Last administered on 08/17/18 09:05; Start 08/15/18 at 09:00 Aspirin (Aspirin) 325 mg DAILY PO Last administered on 08/05/18 08:03; Start 07/29/18 at 09:00; Stop 08/05/18 at 19:10; Status DC Carvedilol (COReg) 6.25 mg BID PO Last administered on 08/17/18 09:05; Start 07/30/18 at 12:00 Chlorhexidine Gluconate (Peridex Oral Rinse) 15 ml TID SSP Last administered on 08/17/18 09:03; Start 07/29/18 at 16:00 Clonidine HCl (Catapres) 0.1 mg QHS PO Last administered on 07/31/18 20:58; St art 07/29/18 at 21:00; Stop 08/01/18 at 14:22; Status DC Clopidogrel Bisulfate (PLAVix) 75 mg DAILY PO Last administered on 08/17/18 09:04; Start 08/06/18 at 09:00 Dextrose (Dextrose 50%) 25 ml ASDIRECTED PRN IV SEE LABEL COMMENTS; Start 07/28/18 at 18:45 Furosemide (Lasix) 40 mg BID@ PO Last administered on 08/03/18at 16:22; Start 07/29/18 at 09:00; Stop 08/03/18 at 18:06; Status DC Furosemide (Lasix) 60 mg DAILY PO Last administered on 08/16/18at 08:38; Start 08/04/18 at 09:00; Status Future hold Gabapentin (Neurontin) 100 mg BID PO Last administered on 08/17/18 09:04; Start 08/03/18 at 21:00 Gabapentin (Neurontin) 100 mg QID PO Last administered on 08/03/18 12:01; Start 07/28/18 at 21:00; Stop 08/03/18 at 13:00; Status DC Glipizide (Glucotrol Xl) 5 mg DAILY@0730 PO Last administered on 08/16/18at 08:36; Start 08/16/18 at 07:30 Glipizide (Glucotrol) 2.5 mg DAILY@0730 PO Last administered on 08/15/18at 08:26; Start 08/14/18 at 13:00; Stop 08/15/18 at 12:14; Status DC Glucagon (Glucagon) 1 mg ASDIRECTED PRN SC SEE LABEL COMMENTS; Start 07/28/18 at 18:45 Glucose (Glucose) 16 GM ASDIRECTED PRN PO SEE LABEL COMMENTS; Start 07/28/18 at 18:45 Guaifenesin (Robitussin Tab) 400 mg BID PO Last administered on 08/16/18at 22:23; Start 07/29/18 at 21:00 Heparin Sodium (Porcine) (Heparin) 5,000 units Q8H SC Last administered on 08/16/18at 23:09; Start 07/28/18 at 22:00; Status Future hold Hydralazine HCl (Apresoline) 25 mg Q6HP PRN PO prn for >140 sBP Last administered on 07/29/18at 09:13; Start 07/28/18 at 18:45; Stop 07/29/18 at 10:44; Status DC Hydralazine HCl (Apresoline) 25 mg TID PO Last administered on 08/17/18at 09:05; Start 08/02/18 at 16:00 Hydralazine HCl (Apresoline) 50 mg Q6HP PRN PO prn for >140 sBP; Start 07/29/18 at 10:45; Stop 07/29/18 at 10:51; Status DC Hydralazine HCl (Apresoline) 50 mg Q6HP PRN PO prn for >140 sBP Last administered on 07/30/18at 10:57; Start 07/29/18 at 17:00; Stop 07/30/18 at 10:59; Status DC Hydralazine HCl (Apresoline) 50 mg TID PO Last administered on 08/02/18at 08:17; Start 07/30/18 at 16:00; Stop 08/02/18 at 10:42; Status DC Insulin Detemir (Levemir Insulin) 18 units BID SC Last administered on 08/11/18at 08:06; Start 07/28/18 at 21:00; Stop 08/11/18 at 10:02; Status DC Insulin Detemir (Levemir Insulin) 22 units BID SC Last administered on 08/12/18at 08:46; Start 08/11/18 at 21:00; Stop 08/12/18 at 10:01; Status DC Insulin Detemir (Levemir Insulin) 24 units BID SC Last administered on 08/16/18at 22:25; Start 08/12/18 at 21:00 Insulin Human Lispro (HumaLOG INSULIN) SEE PROTOCOL TABLE AC SC Last administered on 08/16/18at 17:36; Start 07/29/18 at 07:30 Insulin Human Lispro (HumaLOG INSULIN) SEE PROTOCOL TABLE QHS SC Last administered on 08/12/18at 20:53; Start 07/28/18 at 21:00 Isosorbide Mononitrate (Imdur) 30 mg DAILY PO Last administered on 08/17/18at 09:04; Start 07/31/18 at 09:00 Labetalol HCl (Normodyne, Trandate) 10 mg STAT STAT IV ; Start 08/05/18 at 10:18; Stop 08/05/18 at 10:19; Status Cancel Lidocaine (Lidoderm Patch) 1 patch QHS TD Last administered on 08/10/18at 21:16; Start 08/10/18 at 21:00 Lisinopril (Prinivil) 20 mg BID PO Last administered on 07/31/18at 10:00; Start 07/29/18 at 21:00; Stop 07/31/18 at 11:53; Status DC Lisinopril (Prinivil) 20 mg DAILY PO Last administered on 07/29/18at 08:10; Start 07/29/18 at 09:00; Stop 07/29/18 at 10:44; Status DC Loperamide HCl (Imodium) 2 mg ASDIRECTED PRN PO DIARRHEA; Start 08/03/18 at 17:30 Meclizine HCl (Antivert) 12.5 mg QHS PO Last administered on 08/02/18at 21:09; Start 07/31/18 at 21:00; Stop 08/03/18 at 17:29; Status DC Meclizine HCl (Antivert) 12.5 mg TID PO Last administered on 07/31/18at 10:00; Start 07/30/18 at 09:00; Stop 07/31/18 at 11:24; Status DC Meclizine HCl (Antivert) 12.5 mg TID PO ; Start 08/05/18 at 09:00; Stop 08/05/18 at 10:08; Status DC Meclizine HCl (Antivert) 12.5 mg TID PO Last administered on 08/10/18at 08:43; Start 08/05/18 at 16:00; Stop 08/10/18 at 17:13; Status DC Meclizine HCl (Antivert) 25 mg TID PO Last administered on 08/17/18at 09:04; Start 08/10/18 at 21:00 Metoprolol Tartrate (Lopressor) 50 mg BID PO Last administered on 08/01/18at 21:35; Start 07/28/18 at 21:00; Stop 08/02/18 at 10:51; Status DC Nitroglycerin (Nitrostat (1/ 150)) 0.4 mg Q5MP PRN SL CHEST PAIN; Start 07/28/18 at 18:45 Non-Formulary Medication ( See Comment Field Below ) REMOVE LIDODERM PATCH DAILY XX Last administered on 08/11/18at 08:11; Start 08/11/18 at 09:00 Omeprazole (PriLOSEC) 20 mg DAILY PO ; Start 07/29/18 at 09:00; Stop 07/29/18 at 09:00; Status DC Omeprazole (PriLOSEC) 20 mg DAILY PO Last administered on 08/17/18at 09:04; Start 07/29/18 at 09:00 Ondansetron HCl (ZOFRAN INJection) 4 mg Q6HP PRN IV NAUSEA OR VOMITING Last administered on 08/05/18at 05:50; Start 08/05/18 at 05:45 Ondansetron HCl (Zofran) 4 mg Q6HP PRN PO NAUSEA Last administered on 07/30/18at 10:06; Start 07/28/18 at 18:45; Stop 08/05/18 at 05:33; Status DC Oxcarbazepine (Trileptal) 150 mg BID PO Last administered on 08/02/18at 08:14; Start 07/31/18 at 21:00; Stop 08/02/18 at 10:44; Status DC Oxcarbazepine (Trileptal) 150 mg DAILY@2000 PO Last administered on 08/02/18 21:09; Start 08/02/18 at 20:00; Stop 08/03/18 at 18:06; Status DC Oxcarbazepine (Trileptal) 150 mg QAM PO Last administered on 07/31/18at 10:04; Start 07/29/18 at 09:00; Stop 07/31/18 at 11:26; Status DC Oxcarbazepine (Trileptal) 300 mg QHS PO Last administered on 07/30/18at 21:43; Start 07/28/18 at 21:00; Stop 07/31/18 at 11:26; Status DC Oxymetazoline HCl (Afrin) 2 spray ONCE PRN NA DISCOMFORT (SEE LABEL COMMENTS; Start 08/10/18 at 10:00 Pantoprazole Sodium (Protonix) 40 mg QPM PO ; Start 07/29/18 at 21:00; Stop 07/29/18 at 21:00; Status DC Potassium Chloride (Micro-K Extencaps) 20 meq DAILY PO Last administered on 08/05/18at 08:04; Start 07/29/18 at 09:00; Stop 08/05/18 at 12:20; Status DC Pravastatin Sodium (Pravachol) 40 mg QHS PO Last administered on 08/16/18at 22:23; Start 07/28/18 at 21:00 Prednisolone Acetate (Predforte 1% Ophth Susp) 2 drop QID OD Last administered on 08/06/18at 07:46; Start 08/03/18 at 14:15; Stop 08/06/18 at 11:19; Status DC Psyllium Hydrophilic Mucilloid (Metamucil) 1 pkt BID PO Last administered on 08/14/18at 09:27; Start 08/03/18 at 21:00 Sodium Chloride 1,000 ml @ 75 mls/hr [id number] IV ; Start 08/17/18 at 09:15; Stop 08/17/18 at 22:34 Spironolactone (Aldactone) 12.5 mg DAILY PO Last administered on 08/06/18at 0 7:45; Start 08/06/18 at 09:00; Stop 08/07/18 at 16:01; Status DC Valacyclovir HCl (Valtrex) 1,000 mg DAILY PO ; Start 08/03/18 at 15:00; Stop 08/03/18 at 15:26; Status DC Valacyclovir HCl (Valtrex) 1,000 mg TID PO Last administered on 08/06/18at 07:44; Start 08/03/18 at 16:00; Stop 08/06/18 at 11:19; Status DC KOFI REDMOND MD Aug 17, 2018 10:15
--- NOTE | 2018-08-17 12:30 | IPNPDOC ---
Subjective Date Seen The patient was seen on 08/17/18. Subjective Chief Complaint/HPI Patient is a 68-year-old male, recently admitted for altered mental status and found to have right leeanna ischemic stroke. Events since last encounter Patient denies chest pain, shortness of breath, weakness, malaise. Plan for vascular intervention today for Renal artery stenosis Objective Physical Examination General Exam: Positive: Alert, Cooperative, No Acute Distress Eye Exam: Positive: PERRLA, Conjunctiva & lids normal, EOMI ENT Exam: Positive: Atraumatic, Mucous membr. moist/pink, Pharynx Normal Neck Exam: Positive: Supple; Negative: JVD, thyromegaly Chest Exam: Positive: Clear to auscultation, Normal air movement Heart Exam: Positive: Rate Normal, Regular Rhythm Abdomen Exam: Positive: Normal bowel sounds, Soft; Negative: Tenderness Extremity Exam: Positive: Edema (2+ to BLE with venous stasis changes) Skin Exam: Positive: Other skin issue (venous stasis changes, foam dressing to posterior LLE); Negative: Rash Neuro Exam: Positive: Normal Speech, Strength at 5/5 X4 ext, Normal Tone Psych Exam: Positive: Mental status NL (sleepy), Mood NL, Oriented x 3; Negative: Anxiety Assessment /Plan Assessment CVA (cerebral vascular accident) -to right leeanna with left sided weakness -Likely due to uncontrolled blood pressure -Continued in rehabilitation unit for mobilization and strengthening Diastolic CHF, acute on chronic -Continued with volume control and fluid restriction. -60 mg Lasix daily Diabetes mellitus type 2, insulin dependent --Increased dose Levemir to 35 units twice a day -Continue glipizide 5mg daily -continue fingerstick checks prior to meals and at bedtime -continue diabetic diet -coverage with insulin per sliding scale protocol Hypertension -Improving -Still variable control -continued on Norvasc, Hydralazine, Imdur -Renal artery angiogram with possible angioplasty today Postherpetic neuralgia -Completed treatment with Valtrex, resolved Renal artery stenosis -Vascular team on board, evaluating with angiogram and possible angioplasty today VRE (vancomycin resistant enterococcus) culture positive -evaluated by ID specialist, no indication for antibiotic therapy -continue contact precautions Advance care planning -code status is DNR -disposistion to home when rehab completed DVT prophylaxis -heparin 5000 units Q8 Plan/VTE VTE Prophylaxis Ordered?: Yes VS, I&O, 24H, Fishbone Vital Signs/I&O Vital Signs Date Time Temp Pulse Resp B/P (MAP) Pulse Ox O2 Delivery O2 Flow Rate FiO2 08/17/18 09:05 78 08/17/18 09:04 154/62 08/17/18 06:00 97.8 18 96 I&O- Last 24 Hours up to 6 AM 08/17/18 06:00 Intake Total 600 ml Output Total 200 ml Balance 400 ml Laboratory Data 24H LABS Laboratory Tests 2 08/16/18 12:20: Bedside Glucose (Misc Panel) 301H 08/16/18 17:04: Bedside Glucose (Misc Panel) 240H 08/16/18 20:22: Bedside Glucose (Misc Panel) 207H 08/17/18 05:52: Bedside Glucose (Misc Panel) 197H 08/17/18 11:18: Bedside Glucose (Misc Panel) 258H DAMIEN LICEAP Aug 17, 2018 12:30
[2018-08-17 14:00] VITALS: BP 138/61
--- NOTE | 2018-08-17 16:37 | IPNPDOC ---
Date Seen The patient was seen on 08/17/18. Progress Note Pt seen and examined. No new issues overnight. We were planning to do a renal angiogram +/- intervention today, but Dr Salazar had an emergent case this morning and the scheduled cases are still pending, thus we need to reschedule Mr Rosario to Thursday morning. He and I had a talk about this, and he understands and is agreeable. It is ok to d/c home in the interim, and we will be happy to do this as an outpatient. No need to hold plavix prior to the procedure. I spoke with Dr Mckeon about this as well and she will arrange for discharge and post procedure PCP follow up. VS, I&O, 24H, Fishbone Vital Signs/I&O Vital Signs Date Time Temp Pulse Resp B/P (MAP) Pulse Ox O2 Delivery O2 Flow Rate FiO2 08/17/18 14:00 97.2 76 18 138/61 (86) 98 I&O- Last 24 Hours up to 6 AM 08/17/18 05:59 Intake Total 660 ml Output Total 200 ml Balance 460 ml Laboratory Data 24H LABS Laboratory Tests 2 08/16/18 17:04: Bedside Glucose (Misc Panel) 240H 08/16/18 20:22: Bedside Glucose (Misc Panel) 207H 08/17/18 05:52: Bedside Glucose (Misc Panel) 197H 08/17/18 11:18: Bedside Glucose (Misc Panel) 258H CHUN BRADFORD MD Aug 17, 2018 16:37
[2018-08-17] MEDS ORDERED: LEVEMIR (INSULIN DETEMIR) 1 UNITS/0.01ML SC SCH (21:00)
--- NOTE | 2018-08-17 21:14 | IPN ---
DATE: 08/17/2018 SUBJECTIVE: The patient was seen and examined at the bedside today morning. He was actually getting his physical therapy when I saw him. He is afebrile, hemodynamically stable. Blood pressures are optimized with the current medications. The patient was ready for angiogram of the renal artery in the morning when I saw him. OBJECTIVE: VITAL SIGNS: Temperature is 97.2 degrees Fahrenheit, blood pressure 138/61, pulse is 76, respiratory rate of 18, saturating 98% on room air. INTAKE AND OUTPUT: Urine output recorded is 200 mL yesterday, 250 mL so far today since overnight. Weight in the bed scale is not available. PHYSICAL EXAMINATION: GENERAL: The patient is awake, alert, oriented times three, sitting in the chair, no apparent distress. HEAD AND NECK EXAM: Extraocular muscles intact. Pupils equally round and reactive to light. Mucous membranes are moist. Neck is supple. There is no JVD. CARDIOVASCULAR: S1, S2, regular rate. No edema of the bilateral lower extremities. RESPIRATORY: Chest is clear to auscultation bilaterally. Bilateral equal air entry. No rales or rhonchi. ABDOMEN: Soft. Positive bowel sounds. Nontender. No organomegaly. MUSCULOSKELETAL: No clubbing or cyanosis. Pulses are 2+. CATEGORY DIRECTOR: No focal deficit. Power is 5/5 in all extremities. LABORATORY REVIEW: CBC is from 08/15/2018. BMP is from 08/15/2018 as well. CURRENT INPATIENT MEDICATIONS: The patient's medications were all reviewed by me. The patient's dose of furosemide was held today morning and he was started on gentle IV fluid hydration in preparation for IV contrast study. ASSESSMENT/PLAN: 1. Chronic kidney disease stage III. Renal function was stable. Continue current antihypertensive regimen. 2. Renovascular hypertension. The patient is on multidrug regimen of amlodipine Coreg, hydralazine and isosorbide and intermittently needing clonidine. The patient is going to have a right renal artery angiogram. 3. Renal artery stenosis. The patient was seen by vascular surgery. Plan is to do a right renal angiogram today. If today angiogram is not possible it will be scheduled as outpatient. 4. Chronic diastolic congestive heart failure. The patient takes Coreg, hydralazine and isosorbide. Lasix dose is being held today morning because of IV contrast study.
--- NOTE | 2018-08-26 21:46 | PMRDS ---
DATE OF ADMISSION: DATE OF DISCHARGE: 08/17/2018 CHIEF COMPLAINT/DISCHARGE DIAGNOSIS: Stroke with dysphagia. HISTORY OF PRESENT ILLNESS: This is a 68-year-old female male with a past medical history of coronary artery disease (CAD), status post cabbage in 2016, hypertension, cerebrovascular accident (CVA) in 2014 with residual dysphagia and right-sided weakness, HLD diabetes, type 2 with peripheral neuropathy, prostate cancer status post radiation, aortic valve replacement___ (cut off) who had a presyncopal event in his car and presented to [facility] ([facility] Emergency Department (ED) reporting palpitations. He reports having been on acyclovir for 4 weeks for facial zoster and 4 weeks of diarrhea without fevers or chills. He was found to have leukocytosis with chest x-ray revealing "left lower lobe atelectasis or infiltrate" so he was started on intravenous (IV) antibiotics. CT head (CTH) was negative for intracranial bleed, but MRI performed on 07/20/2018 showed "small late acute right pontine infarct...old left basal ganglia, thalamic, cerebellar, and pontine lacunar infarcts." Carotid ultrasound was performed, showing "occlusion of the mid right internal carotid artery. No hemodynamically significant stenosis, left internal carotid artery." CT angiogram (CTA) head showed severe stenosis of the right anterior cerebral artery. He had repeat head imaging showing no new strokes or significant evolution of his initial stroke. Repeat chest x-ray showed persistent infiltrates, so he underwent an esophagram out of concern for aspiration pneumonia, and aspiration with cough response was seen during both the oral and pharyngeal stages without signs of esophageal strictures. Neurology was consulted, who agreed with aspirin dose and performed an electroencephalogram (EEG) 07/22/2018, which showed no seizure activity. He had a nocturnal pulse oximetry test performed, showing desaturations less than 88% for 13 minutes and 20 seconds, and he was placed on nocturnal oxygen with recommendations for outpatient sleep study. He was evaluated by therapy and found to have impairments in gait and activities of daily living (ADLs) below baseline function and deemed medically appropriate for discharge to acute rehabilitation unit (ARU) on 07/28/2018. Upon arrival, he reports feeling mildly short of breath and has persistent diarrhea. PAST MEDICAL HISTORY: As per history of present illness (HPI). HOSPITAL COURSE: The patient was admitted and enrolled in a comprehensive physical therapy (PT), occupational therapy (OT), speech/language pathology program. He received 24-hour nursing supervision, and weekly team meetings were held to discuss his progress. The patient was gradually advanced from puree to a level 2 diet; however, he was maintained on a honey liquid diet and had a FEES study performed on 08/10/2018, which showed no aspiration on nectars; however, he ultimately was deemed safest on honey-thickened. The patient was able to thick his own liquids prior to discharge. The patient had an episode of altered mental status with increased dizziness on 07/30/2018 with elevated blood pressures. CT at that time was negative for a new stroke, and repeat MRI was also negative for repeat stroke. His blood pressures were difficult to control. Medicine was assisting with this in addition to renal. On 08/05/2018, he had elevated blood pressures (BPs) with a repeat MRI showing extension of the previous right pontine stroke. The patient clinically did not have any new deficits and was deemed medically stable to remain on the floor. He was maintained on meclizine for his dizziness, which did improve over time, and his blood pressure was ultimately better controlled with adjustments to his various medications. Renal ultrasound was suggestive of bilateral renal artery stenosis, and on 08/06/2018 an MRA was performed, confirming a moderately severe stenosis of the main right renal artery with mild diffuse narrowing of the main left renal artery without significant stenosis. The patient was scheduled for an angiogram; however, this was deferred, and the patient was ultimately deemed medically and functionally stable to be discharged home with outpatient followup for this procedure. DISCHARGE MEDICATIONS: As per discharge instructions. FUNCTIONAL HISTORY UPON DISCHARGE: The patient was modified independent for all functional transfers and able to ambulate 100 feet with a rolling walker. In occupational therapy he was modified independent for toileting, upper and lower body dressing, bathing, and was deemed functionally and medically stable to return home with home services. MARY
== END 2018-08-17 16:50 | disposition home health service (06) | DRG 56 ==
LOC: M PM&R 18:42 → EEVIPCON 18:42
PROVIDERS: ADMIT Physical Medicine & Rehabilitation; ATTEND Physical Medicine & Rehabilitation
DX: I69.391 Dysphagia following cerebral infarction (principal); I50.33 Acute on chronic diastolic (congestive) heart failure; I63.9 Cerebral infarction, unspecified; I69.351 Hemiplegia and hemiparesis following cerebral infarction affecting right dominant side; B02.29 Other postherpetic nervous system involvement; I13.0 Hypertensive heart and chronic kidney disease with heart failure and stage 1 through stage 4 chronic kidney disease, or unspecified chronic kidney disease; N17.9 Acute kidney failure, unspecified; K21.9 Gastro-esophageal reflux disease without esophagitis; Z79.4 Long term (current) use of insulin; I25.10 Atherosclerotic heart disease of native coronary artery without angina pectoris; Z95.1 Presence of aortocoronary bypass graft; E11.51 Type 2 diabetes mellitus with diabetic peripheral angiopathy without gangrene; Z79.82 Long term (current) use of aspirin; Z79.899 Other long term (current) drug therapy; Z66 Do not resuscitate; I70.1 Atherosclerosis of renal artery; E78.5 Hyperlipidemia, unspecified; N18.3 Chronic kidney disease, stage 3 (moderate)

== ENCOUNTER → 2018-08-20 | Outpatient (CLI) | payer MEDICARE, MEDICAID ==
[~2018-08-20] MED LIST changes: +AMLO10TA5 PO; +BUPIVACAINE HCL 0.5% 10 ML VIAL As Ordered ONE; +CARV6.25 PO; +CLOP75TA2 PO; +FURO20TA2 PO; +GLIP5TAB20 PO; +HEPARIN 1,000 UNITS/ML 10ML VIAL (FOR RADIOLOGY& DIALYSIS ONLY) As Ordered ONE; +ISOS30TA4 PO; +ISOVUE-300 61% 50ML VIAL (Q9967) As Ordered ONE; +LIDOCAINE 2% MDV 20 ML VIAL As Ordered ONE; +MECL-86 PO; +MIDAZOLAM INJ 2 MG/2 ML VIAL (J2250) As Ordered ONE; +OMEP-218 PO; +PRAV1TAB39 PO; +diphenhydrAMINE INJ 50MG/ML VIAL (J1200) As Ordered ONE; +fentaNYL 100 MCG/2 ML INJECTION (J3010) As Ordered ONE
--- NOTE | 2018-08-20 09:46 | ROOPDOC ---
[facility] Report Of Operation Report of Operation DATE OF PROCEDURE: 08/20/18 PREPROCEDURE DIAGNOSES: Uncontrolled hypertension, right renal artery stenosis POSTPROCEDURE DIAGNOSES: Same PROCEDURE: 1. Ultrasound guided access R [employer]PERVISOR [employer]AF[employer]Y DEPOSIT 2. Renal arteriogram with select views R renal artery 3. Predilation prox R renal artery with 4x40 mustang balloon 4. Stent prox R renal artery with 6x18 Express stent 5. Post dilation with 7x20 Stepyh balloon 6. Completion arteriograms 7. Mynx closure R SUPERVISOR SAF[employer]Y DEPOSIT SURGEON: Melissa Ashton MD ANESTHESIA: Local anesthesia 10cc lidocaine. Moderate intravenous conscious sedation was supervised by Dr Ashton. The patient was independenly monitored by a registered nurse assigned to [facility] department of radiology using automated blood pressure, EKG, and pulse oximetry. The detailed record is housed in the hospital information system. The following is the conscious sedation record: Start time 08:22, end time 09:17, Versed 1mg IV, Fentanyl 25mcg IV, heparin 3000 units IV. INDICATION FOR PROCEDURE: Mr Rosario is a very pleasant 68yo gentleman with recent CVA and he was seen in consultation while recovering in Rehab due to uncontrolled hypertension despite 2 diuretics and 3 antihypertensive medications. Duplex of the right renal artery revealed PSV >300 at the proximal right renal artery and MRA revealed a >60% proximal right renal artery stenosis. Risk benefits and alternatives were explained to the patient for a renal arteriogram with potential intervention and he was agreeable to proceed. Informed consent was obtained. INTERPRETATION: 1. The left renal artery is widely patent without significant stenosis. 2. There is an 80% proximal stenosis in the right renal artery. Selection of the right renal artery does not reveal any distal arterial stenosis. 3. After predilation, stenting and postdilation, there is 10% residual stenosis due to dense unyielding inferior wall plaque, but overall result is excellent. 4. Completion arteriogram of the right kidney reveals intact distal artery, no dissection or embolization, no perforation or extravasation, no kate renal extravasation either. PROCEDURE:The patient was brought to the angiographic suite in stable condition. His bilateral groins were prepped and draped in a sterile fashion. Sedation was administered without complication. A time out was performed. Local anesthesia was administered to the skin and subcutaneous tissue in the right groin and a micro needle was used to access the artery under US guidance. A wire was passed through this access under fluoroscopic guidance. A microsheath was placed and an 035 glidewire was advanced into the aorta under fluoroscopic guidance. We exchanged for a short 5 togolese sheath and it was flushed with saline. A pigtail was advanced over the wire to the suprarenal aorta. An arteriogram was performed, and significant prox right renal artery stenosis was noted. We then utilized a sos catheter to select the right renal artery and found the distal renal artery flow was widely patent. We exchanged our sheath for a 45cm angled sheath 5 togolese into the origin of the right renal artery and flushed gently with saline. We pre-dilated the origin of the artery with a 4x40 mustang balloon, then exchanged the wire for an 018 wire and advanced a 6x18 express stent across the stenosis. We backed our sheath out a bit and puffed contrast until we were happy with the position of the stent across the stenosis with the proximal stent just slightly into the aorta. The stent was deployed and post deployment arteriogram showed it to be in great position. We post dilated with a 7x20 stephy balloon, and 10% residual stenosis remained due to unyielding inferior arterial wall plaque, but overall patency is now excellent. Completion arteriogram of the kidney showed widely patent distal flow without dissection, perforation or embolization, and no extravasation was noted from the renal parenchyma either. We then deployed a mynx closure device with good hemostasis. Pressure was held for at the right groin for 10 minutes and the patient was taken to recovery in stable condition. ESTIMATED BLOOD LOSS: Approximately 15 mL. COMPLICATIONS: None. PLAN: Continue IVF at 100cc/hr until d/c home. Monitor right groin for hematoma x4 hr. Patient is on plavix s/p CVA, and from a vascular standpoint will need to continue this for at least 60 days due to bare metal stent placement. Continue antihypertensives, continue to monitor BP at home, and f/u with PCP next week. F/u with vascular in 1 week to check left groin access site. MELISSA ASHTON MD Aug 20, 2018 09:46
== END | disposition home or self-care (01) ==
LOC: M IRPRO 07:07
PROVIDERS: ATTEND Surgery Vascular Surgery
DX: I70.1 Atherosclerosis of renal artery (principal); I10 Essential (primary) hypertension
CPT/HCPCS: 36251; 37236; 99152; 99153; C1725; C1760; C1769; C1876; C1887; C1894; J2250; J3010; Q9967

== ENCOUNTER → 2018-10-18 | Outpatient (REF) | payer MEDICARE, MEDICAID ==
[~2018-10-18] MED LIST changes: -BUPIVACAINE HCL 0.5% 10 ML VIAL As Ordered ONE; -HEPARIN 1,000 UNITS/ML 10ML VIAL (FOR RADIOLOGY& DIALYSIS ONLY) As Ordered ONE; -ISOVUE-300 61% 50ML VIAL (Q9967) As Ordered ONE; -LIDOCAINE 2% MDV 20 ML VIAL As Ordered ONE; -MIDAZOLAM INJ 2 MG/2 ML VIAL (J2250) As Ordered ONE; -diphenhydrAMINE INJ 50MG/ML VIAL (J1200) As Ordered ONE; -fentaNYL 100 MCG/2 ML INJECTION (J3010) As Ordered ONE
[2018-10-18 13:51] LABS: BLOOD UREA NITROGEN 21 MG/DL (7-18); CALCIUM LEVEL 8.9 MG/DL (8.8-10.2); CARBON DIOXIDE LEVEL 32 MEQ/L (21-32); CHLORIDE LEVEL 100 MEQ/L (98-107); CREATININE FOR GFR 1.13 MG/DL (0.70-1.30); GLOMERULAR FILTRATION RATE > 60.0 (>42); GLUCOSE, FASTING 189 MG/DL (70-100); MAGNESIUM LEVEL 2.1 MG/DL (1.8-2.4); POTASSIUM SERUM 3.9 MEQ/L (3.5-5.1); SODIUM LEVEL 138 MEQ/L (136-145)
== END ==
LOC: M SHH 12:28
PROVIDERS: ATTEND Family Medicine
DX: E11.43 Type 2 diabetes mellitus with diabetic autonomic (poly)neuropathy (principal); I50.42 Chronic combined systolic (congestive) and diastolic (congestive) heart failure

== ENCOUNTER → 2018-11-02 | Outpatient (REF) | payer MEDICARE, MEDICAID ==
[~2018-11-02] MED LIST changes: -ASPI32ECTA PO; +[UNRECOGNIZED DRUG - CODE] PO
[2018-11-02 14:48] LABS: BLOOD UREA NITROGEN 27 MG/DL (7-18); CALCIUM LEVEL 8.7 MG/DL (8.8-10.2); CARBON DIOXIDE LEVEL 33 MEQ/L (21-32); CHLORIDE LEVEL 101 MEQ/L (98-107); CREATININE FOR GFR 1.21 MG/DL (0.70-1.30); GLOMERULAR FILTRATION RATE > 60.0 (>42); GLUCOSE, FASTING 77 MG/DL (70-100); NT-PRO BNP 1712 PG/ML (<125); POTASSIUM SERUM 3.7 MEQ/L (3.5-5.1); SODIUM LEVEL 142 MEQ/L (136-145)
== END ==
LOC: M LAB REF 13:25 → M SHH 13:25
PROVIDERS: ATTEND Family Medicine
DX: I50.33 Acute on chronic diastolic (congestive) heart failure (principal); R79.89 Other specified abnormal findings of blood chemistry

== ENCOUNTER → 2018-11-16 | Outpatient (REF) | payer MEDICARE, MEDICAID ==
[~2018-11-16] MED LIST changes: +ACET-683 PO; +ASPI81TA85 PO; +GLIP10TA18 PO; +HUMA100I5 SC; +HYDR-3910 PO; +METF500T13 PO; +POTA20TA6 PO; +TRES1INJ SC
[2018-11-16 20:40] LABS: BASO % 0.4 % (0.0-1.0); EOS # 0.4 10^3/uL (0.0-0.5); HEMATOCRIT 31.8 % (42.0-52.0); HEMOGLOBIN 9.7 g/dl (13.5-17.5); LYMPH # 0.5 10^3/uL (1.5-5.0); LYMPH % 5.4 % (24.0-44.0); MEAN CORPUSCULAR HEMOGLOBIN 25.8 pg (27.0-33.0); MEAN CORPUSCULAR HGB CONC 30.5 g/dl (32.0-36.5); MEAN CORPUSCULAR VOLUME 84.6 fl (80.0-96.0); MONO # 0.8 10^3/uL (0.0-0.8); MONO % 8.2 % (0.0-5.0); NEUTROPHILS # 7.6 10^3/uL (1.5-8.5); NEUTROPHILS % 81.7 % (36.0-66.0); PLATELET COUNT, AUTOMATED 308 10^3/uL (150-450); RED BLOOD COUNT 3.76 10^6/uL (4.30-6.10); WHITE BLOOD COUNT 9.3 10^3/uL (4.0-10.0)
[2018-11-16 20:55] LABS: ALBUMIN 3.2 GM/DL (3.2-5.2); BILIRUBIN,TOTAL 0.5 MG/DL (0.2-1.0); CALCIUM LEVEL 8.9 MG/DL (8.8-10.2); CREATININE FOR GFR 1.31 MG/DL (0.70-1.30); FREE T4 0.97 NG/DL (0.76-1.46); GLOMERULAR FILTRATION RATE 57.6 (>42); POTASSIUM SERUM 3.9 MEQ/L (3.5-5.1); THYROID STIMULATING HORMONE 3.12 uIU/ML (0.358-3.740); TOTAL PROTEIN 6.9 GM/DL (6.4-8.2); TOTAL T3 94.2 NG/DL (60.0-181.0)
[2018-11-16 21:37] LABS: HEMOGLOBIN A1c 8.9 %
== END ==
LOC: M SHH 09:29
PROVIDERS: ATTEND Family Medicine
DX: E11.43 Type 2 diabetes mellitus with diabetic autonomic (poly)neuropathy (principal); E87.70 Fluid overload, unspecified; Z79.818 Long term (current) use of other agents affecting estrogen receptors and estrogen levels; L03.032 Cellulitis of left toe; E55.9 Vitamin D deficiency, unspecified; E03.9 Hypothyroidism, unspecified; Z79.899 Other long term (current) drug therapy; Z79.82 Long term (current) use of aspirin

== ENCOUNTER 2018-11-22 10:48 | Inpatient (IN) | payer MEDICARE, MEDICAID ==
[~2018-11-22] VITALS: Ht 180.3 cm; Wt 115.3 kg
[~2018-11-22 10:48] MED LIST changes: -ACET-683 PO; -ASPI81TA85 PO; -GLIP10TA18 PO; -HUMA100I5 SC; -HYDR-3910 PO; -METF500T13 PO; -POTA20TA6 PO; -TRES1INJ SC
[2018-11-22 11:57] LABS: BASO % 0.5 % (0.0-1.0); EOS # 0.3 10^3/uL (0.0-0.5); EOS % 4.3 % (0.0-3.0); HEMATOCRIT 29.4 % (42.0-52.0); HEMOGLOBIN 9.1 g/dl (13.5-17.5); LYMPH # 0.5 10^3/uL (1.5-5.0); MEAN CORPUSCULAR HEMOGLOBIN 26.4 pg (27.0-33.0); MEAN CORPUSCULAR VOLUME 85.2 fl (80.0-96.0); MONO # 0.8 10^3/uL (0.0-0.8); MONO % 10.3 % (0.0-5.0); NEUTROPHILS # 5.9 10^3/uL (1.5-8.5); NEUTROPHILS % 78.5 % (36.0-66.0); PLATELET COUNT, AUTOMATED 261 10^3/uL (150-450); RED BLOOD COUNT 3.45 10^6/uL (4.30-6.10); WHITE BLOOD COUNT 7.5 10^3/uL (4.0-10.0)
--- NOTE | 2018-11-22 12:12 | REP ---
Portable chest, 11:51 a.m., single AP view with the the patient semi upright: Comparison is 07/29/2018. There is opacification inferiorly in the right lung as an interval change, nonspecific, pleural effusion versus infiltrate versus combination. Remainder of the right lung is clear. The left lung is clear. Sternotomy wires, cardiomegaly and prosthetic aortic valve on change. A loop recorder is unchanged. Impression: Increased density inferiorly in the right lung, infiltrate, effusion, combination. Electronically Signed by Denys Mitchell MD 11/22/2018 12:03 P
[2018-11-22 12:17] LABS: AMPHETAMINES LEVEL URINE NEGATIVE (NEGATIVE); BARBITURATES URINE NEGATIVE (NEGATIVE); BENZODIAZEPINES URINE NEGATIVE (NEGATIVE); CANNABINOIDS URINE NEGATIVE (NEGATIVE); COCAINE METABOLITE URINE NEGATIVE (NEGATIVE); METHADONE URINE NEGATIVE (NEGATIVE); OPIATES URINE NEGATIVE (NEGATIVE); PHENCYCLIDINE URINE NEGATIVE (NEGATIVE)
--- NOTE | 2018-11-22 12:21 | REP ---
CT BRAIN WITHOUT IV CONTRAST: CT brain performed without IV contrast. COMPARISON: 08/05/2018, There is again moderate atrophy and periventricular small vessel ischemic change, stable. There is no midline shift or mass effect. There is no acute intracranial hemorrhage or extra-axial fluid collection. There is no skull fracture. There are vascular calcifications in the carotid siphons. There is some opacification of the inferior left mastoid air cells, which is unchanged since the prior exam. IMPRESSION: Chronic findings as above. No evidence of acute intracranial hemorrhage or skull fracture. Electronically Signed by Denys Vanessa MD 11/23/2018 09:54 A
[2018-11-22 12:26] LABS: ACETAMINOPHEN LEVEL < 2.0 UG/ML (10.0-30.0); ALT/SGPT 18 U/L (12-78); BILIRUBIN,DIRECT 0.2 MG/DL (0.0-0.2); BILIRUBIN,TOTAL 0.5 MG/DL (0.2-1.0); BLOOD UREA NITROGEN 24 MG/DL (7-18); CALCIUM LEVEL 8.4 MG/DL (8.8-10.2); CARBON DIOXIDE LEVEL 30 MEQ/L (21-32); CHLORIDE LEVEL 107 MEQ/L (98-107); CK-MB VALUE MASS 1.9 NG/ML (<3.6); CPK CREATINE PHOSPHOKINASE 52 U/L (39-308); CREATININE FOR GFR 1.26 MG/DL (0.70-1.30); ETHYL ALCOHOL (ETHANOL) < 0.003 % (0.000-0.010); GLOMERULAR FILTRATION RATE > 60.0 (>42); GLUCOSE, FASTING 69 MG/DL (70-100); MB/CK RELATIVE INDEX 3.65 (< OR =4); SALICYLATE LEVEL < 1.7 MG/DL (5.0-30.0); SODIUM LEVEL 142 MEQ/L (136-145); TOTAL PROTEIN 6.5 GM/DL (6.4-8.2); TROPONIN I < 0.02 NG/ML (< 0.10)
--- NOTE | 2018-11-22 12:37 | REP ---
CT CERVICAL SPINE WITHOUT CONTRAST: CT cervical spine performed without IV contrast. Sagittal and coronal reconstruction images are performed. There is no compression fracture. There is no malalignment. There is no prevertebral soft tissue swelling. There is mild spurring of C3 and C4 with moderate spurring of C5 through C7. There is mild discs space narrowing at C5-6 and moderate narrowing at C6-7. There is moderate posterior osteophytic ridging at C6-7. Disc bulging and uncovertebral spurring appears to cause mild spinal stenosis at C3-4, C4-5, C5-6, and C6-7. IMPRESSION: Degenerative changes without fracture or dislocation. Electronically Signed by Denys Vanessa MD 11/23/2018 09:55 A
[2018-11-22] MEDS ORDERED: DEXTROSE 50% 50 ML SYRINGE IV STA (13:02)
[2018-11-22] MEDS ORDERED: ISOVUE-370 76% 100ML VIAL (Q9967) As Ordered ONE (13:02)
[2018-11-22 13:17] LABS: NT-PRO BNP 2910 PG/ML (<125)
[2018-11-22] MEDS ORDERED: ACET-683 PO (13:35)
[2018-11-22] MEDS ORDERED: HUMA100I5 SC (13:35)
[2018-11-22] MEDS ORDERED: FLUO40CA PO (13:35)
[2018-11-22] MEDS ORDERED: CLOP75TA2 PO (13:35)
[2018-11-22] MEDS ORDERED: POTA20TA6 PO (13:35)
[2018-11-22] MEDS ORDERED: AMLO10TA5 PO (13:35)
[2018-11-22] MEDS ORDERED: MECL-86 PO (13:35)
[2018-11-22] MEDS ORDERED: HYDR-3910 PO (13:35)
[2018-11-22] MEDS ORDERED: TRES1INJ SC (13:35)
[2018-11-22] MEDS ORDERED: NITR4TASL SL (13:35)
[2018-11-22] MEDS ORDERED: PRAV40TA2 PO (13:35)
[2018-11-22] MEDS ORDERED: GLIP5TAB20 PO (13:35)
[2018-11-22] MEDS ORDERED: FURO40TA2 PO (13:35)
[2018-11-22] MEDS ORDERED: OMEP-218 PO (13:35)
[2018-11-22] MEDS ORDERED: ASPI81TA85 PO (13:35)
[2018-11-22] MEDS ORDERED: GABA-1171 PO (13:35)
[2018-11-22] MEDS ORDERED: ISOS30TA4 PO (13:35)
[2018-11-22] MEDS ORDERED: CARV6.25 PO (13:35)
--- NOTE | 2018-11-22 14:17 | REP ---
CT of the chest with IV contrast, CT pulmonary angiography protocol: Comparison is the portable plain film study performed earlier today. There is a moderate right pleural effusion with compression atelectasis of the right lung. In addition, there is a left pleural effusion, smaller in size in the right, with compression atelectasis of the left lung. There are no emboli in the pulmonary trunk or central pulmonary arteries. There are no emboli in the pulmonary artery lobe or segment branches. The thoracic aorta is unremarkable except for aortic valve prosthesis. Cardiac size is enlarged. There is no pericardial effusion. The visualized upper abdominal contents are unremarkable. Impression: There are no pulmonary emboli. There are bilateral pleural effusions with compression atelectasis of the adjacent lung as described. Cardiomegaly. Aortic valve prosthesis. Electronically Signed by Denys Mitchell MD 11/22/2018 02:09 P
[2018-11-22] MEDS ORDERED: NITROGLYCERIN 0.4 MG SUBL TABLET SL PRN (14:30)
[2018-11-22] MEDS ORDERED: ACETAMINOPHEN 500 MG TAB PO PRN (14:30)
[2018-11-22] MEDS: FUROSEMIDE 40 MG/4 ML VIAL (J1940) IV SCH ×2 (15:39→21:29)
[2018-11-22] MEDS ORDERED: HumaLOG INSULIN (NovoLOG) PER UNIT SC SCH (17:30)
--- NOTE | 2018-11-22 18:33 | REP ---
Bilateral lower extremity Duplex Doppler venous ultrasound: Real time compression and duplex Doppler interrogation of the bilateral lower extremity deep venous system is performed. Bilaterally, the common femoral, superficial femoral and popliteal veins are fully compressible with transducer pressure and demonstrate normal spontaneous and phasic flow, without evidence of deep venous thrombosis. Impression: No evidence of deep venous thrombosis of the bilateral lower extremity femoral popliteal venous system. Electronically Signed by Denys Vanessa MD 11/22/2018 04:06 P
--- NOTE | 2018-11-22 18:39 | REP ---
MRI brain without contrast: History: Dizziness. Rule out cerebellar CVA. Comparison CT study is from earlier this date. Technique: Axial and sagittal imaging planes are utilized for T1 and T2-weighted scans. Sequences include spin-echo, fast spin echo, FLAIR, and diffusion weighted sequences. MRI findings: No bony calvarial lesion is seen. Craniocervical junction and upper cervical cord are unremarkable. There is generalized volume loss as seen on CT. There is no evidence of intracranial hemorrhage. Diffusion weighted scans show no evidence of restricted diffusion to suggest acute ischemia. There are extensive small vessel atherosclerotic changes in the periventricular white matter of the supratentorial brain bilaterally. No infarct or extra-axial fluid collection or midline shift is seen. Impression: Generalized atrophy and small vessel changes. There is no evidence of acute ischemia or bleed. Electronically Signed by John Jett MD 11/23/2018 08:49 A
[2018-11-22 18:56] LABS: FERRITIN 51 NG/ML (26-388); IRON (FE) 27 UG/DL (65-175); PERCENT SATURATION 7.6 % (19.7-50.0); TOTAL IRON BINDING CAPACITY 356 UG/DL (250-450)
[2018-11-22 19:59] LABS: BLOOD UREA NITROGEN 24 MG/DL (7-18); CALCIUM LEVEL 8.3 MG/DL (8.8-10.2); CARBON DIOXIDE LEVEL 28 MEQ/L (21-32); CHLORIDE LEVEL 103 MEQ/L (98-107); CK-MB VALUE MASS 2.4 NG/ML (<3.6); CPK CREATINE PHOSPHOKINASE 61 U/L (39-308); CREATININE FOR GFR 1.41 MG/DL (0.70-1.30); GLOMERULAR FILTRATION RATE 52.9 (>42); GLUCOSE, FASTING 170 MG/DL (70-100); MAGNESIUM LEVEL 2.2 MG/DL (1.8-2.4); MB/CK RELATIVE INDEX 3.93 (< OR =4); POTASSIUM SERUM 4.1 MEQ/L (3.5-5.1); SODIUM LEVEL 140 MEQ/L (136-145); TROPONIN I < 0.02 NG/ML (< 0.10)
[2018-11-22] MEDS ORDERED: GLUCAGON FOR INJ 1 MG VIAL (J1610) SC PRN (20:15)
[2018-11-22] MEDS ORDERED: DEXTROSE 50% 50 ML SYRINGE IV PRN (20:15)
[2018-11-22] MEDS ORDERED: GLUCOSE 4 GM CHEW TABLET PO PRN (20:15)
[2018-11-22 20:40] VITALS: BP 150/82
[2018-11-22] MEDS ORDERED: POTASSIUM CHLORIDE 10 MEQ SR TABLET PO SCH (21:00)
[2018-11-22] MEDS: HumaLOG INSULIN (NovoLOG) PER UNIT SC SCH (21:00)
[2018-11-22] MEDS: GABAPENTIN 100 MG CAP PO SCH (21:28)
[2018-11-22] MEDS: CARVedilol 6.25 MG TAB PO SCH (21:29)
--- NOTE | 2018-11-22 21:46 | ECGEPIP ---
[facility] - ED Test Date: 2018-11-22 Pat Name: MARIE FLYNN Department: Room: - Gender: Male [employer]: PMO : 1950 Requested By: Marcelo Yoder Order Number: [id number] Reading MD: Tk Conklin Measurements Intervals [place] Rate: 65 P: 16 AL: 316 QRS: -12 QRSD: 99 T: 94 QT: 437 QTc: 455 Interpretive Statements SINUS RHYTHM WITH FIRST DEGREE AV BLOCK SEptal Q waves previously noted 08-05-18 Delayed anterior R wave progression Nonspecific ST-T wave abnormalities Electronically Signed on 11-22-2018 21:45:50 EDT by Tk Conklin
--- NOTE | 2018-11-22 21:53 | HPE ---
DATE OF ADMISSION: 11/22/2018 CHIEF COMPLAINT: Passed out. HISTORY OF THE PRESENT ILLNESS: This is a 68-year-old male who lives alone, presents to the emergency room with acute onset of syncope times two episodes today. Patient says that for the past few days, his sugar levels have remained low, oftentimes in the 60s on insulin 20 units before food (q a.c.). Patient has denied any fever or chills, or cough at home. Denies dysuria, urgency, frequency. Patient has noted shortness of breath for the past 2 days, and this morning when he got up, he blacked out falling on his right side, then bounced off to land on the chair on the left side. The patient said that it lasted for only a few seconds. When he came around, he knew where he was immediately. Before the episode, he felt very lightheaded and dizzy. Denies any diaphoresis, chest pain, pressure or tightness. At that point, when he was able to get up, he then walked over to the living room, and he grabbed onto the side real as his legs felt very weak. He was still dizzy and lightheaded and he collapsed in the middle of the living room. That lasted for a few seconds. He was then able to get up in a chair and fell asleep on his recliner. When he woke up, he threw up several times with food emesis and mucus. He denied any abdominal pain. He knew that his nurse was coming to check up on him on Thursday, Thursday, and Thursday, so he got up to go to the kitchen without any assistance and when the nurse had gotten there, he told her of the recent events. She then called his doctor who advised him to call 911. The patient also complains of shortness of breath for the past 2 days. No fever, chills, or cough. He has had increasing lower extremity edema and says that he even has swelling in his hand when he presses it with his thumb. He has had about a 10-15 pound weight gain for the past 2 weeks. He says that he gets Meals on Wheels, no added salt diet, usually drinks lucy janis but does not keep an eye on fluid restrictions. His glucose usually runs between 100 to 200, but in the hospital, he was found to have a glucose of 67 and subsequently despite being given D50, had sugars of 42. The patient's insulin was withheld during the admission. EKG was sinus rhythm. CT of the head on admission shows no acute infarct. There is chronic findings of moderate atrophy and periventricular small vessel ischemic changes. No acute intracranial hemorrhage or extra-axial fluid collection. (dictation cut off) shows . Chest x-ray showed increased density effusion, infiltrate or a combination. CT chest: No pulmonary emboli. Bilateral pleural effusions, cardiomegaly, compression atelectasis, aortic valve prosthesis. Venous Dopplers of the lower extremities: No deep vein thrombosis (DVT). MRI of the brain: No acute ischemia or bleed. Hospitalist was asked to admit the patient for two syncopal episodes, most likely secondary to hypoglycemia. unable to tell whether the patient was hypoglycemic in the field. Glucose in the emergency room was 69 with glucose repeated at 47 at 1301 hours despite D50. PAST MEDICAL HISTORY: Coronary artery disease, coronary artery bypass graft (CABG). Hypertension. 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 Dyslipidemia, prostate cancer, status post radiation, aortic valve replacement - not on anticoagulation, chronic kidney disease stage III, recurrent acute kidney injury, type 2 diabetes with neuropathy, aspiration pneumonia, right pontine CVA in June 2018, hypertensive urgency, renal artery stenosis. Zoster. Cerebellar basal ganglia thalamic stroke. Obstructive sleep apnea with history of loop recorder, reflux, diastolic congestive heart failure. PAST SURGICAL HISTORY: Cholecystectomy, aortic valve replacement (AVR), CABG. FAMILY HISTORY: Colon and prostate CA. Mother with colon cancer. 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 Denies alcohol, drugs or smoking. Lives alone. ALLERGIES: No known drug allergies. HOME MEDICATIONS: - Lasix 80 mg twice a day - glipizide 5 mg daily - isosorbide 30 mg daily - hydralazine 25 mg twice a day - Tresiba 80 units nightly - meclizine 25 mg every 8 hours as needed for dizziness - omeprazole 20 mg daily - acetaminophen 1 gram every 6 hours - Norvasc 10 mg daily - aspirin 81 mg - Coreg 6.25 twice a day - Plavix 75 mg daily - fluoxetine 40 mg daily - gabapentin 100 mg twice a day - Lispro insulin 20 before food - nitroglycerin as needed - potassium 20 mEq twice a day - pravastatin 40 mg daily REVIEW OF SYSTEMS: 12-point system negative aside from positive findings in history of the present illness. PHYSICAL EXAMINATION: Temperature 97.8, pulse 73, respiratory rate 18, blood pressure 129/73, 96% two liters nasal cannula. General: The patient is awake, alert, oriented times three, answering question appropriately. No facial drooping. Face is symmetric. Speech is fluent. Anicteric sclerae. No jaundice, no pallor. Mild jugular venous distention (JVD). No cervical lymphadenopathy, thyromegaly. Lungs are diminished with bibasilar rales at the bases. Heart: S1, S2 with . Abdomen: Soft, obese, nontender, nondistended, positive bowel sounds. Extremities: Chronic venous stasis changes with 3+ edema bilateral lower extremities to the sacrum. EKG: Sinus rhythm, first-degree AV block, left axis deviation, LVH. LABORATORY DATA: White count 7.5, hemoglobin 9, hematocrit 29, platelet count 261. Sodium 140, potassium 4.1, chloride 103, bicarbonate 28, BUN 24, creatinine 1.41, glucose 170 at 1912 hours. On admission, patient's glucose was 69, fingerstick 47, 75 and 99. IMAGING STUDIES: CT of the head: Chronic findings. No evidence of acute intracranial hemorrhage or skull fracture. Chest x-ray: Increased density in the right lung, infiltrate/effusion combination. Cervical spine x-ray: No fracture or dislocation. Degenerative disc changes. CT chest: No pulmonary embolism (PE), bilateral pleural effusions, compression atelectasis, cardiomegaly. Venous Dopplers lower extremities: No DVT. MRI of the brain: No acute ischemia or bleed. ASSESSMENT AND PLAN: This is a 68-year-old male who lives alone, has been having episodes of syncope at home times two today, shortness of breath for the past few days. The patient is admitted as an inpatient for two midnights for the following issues: Recurrent syncope, most likely secondary to hypoglycemic episodes. However, the patient will be in progressive care unit (PCU) for telemetry monitoring. Cycle cardiac markers. The patient had a recent echocardiogram and unlikely to be unchanged. Orthostatics were negative. No symptoms of any acute infection. Despite shortness of breath, the patient denied having any fever or chills, white count, dysuria, urgency, frequency or cough. No empiric antibiotics for now . Recurrent hypoglycemia. Most likely from exogenous insulin use. Will hold patient's hypoglycemic agents and discontinue insulin for now. At this time, will rule out acute infectious process. CT chest shows possible infiltrate but patient has no white count or fevers. Will monitor for cough. May obtain a respiratory panel, rule out viral infection. Will check fingersticks before food and nightly and place on sliding scale for now. Consistent carbohydrate, no added salt diet. Microcytic hypochromic anemia. Previous hemoglobin was 11.4, hematocrit of 34.7. Patient otherwise denies any hematemesis, bright red blood per rectum, melena, or black, tarry stools. Will obtain iron studies, stool for Hemoccult and reticulocyte count along with peripheral blood smear. Monitor for any signs of bleeding. Acute kidney injury. Previous creatinine was 1.26 on admission at 1134 hours. Will monitor patient's urine output. Hold Lasix after three doses and monitor for worsening renal dysfunction. Avoid further nephrotoxins after a trial of Lasix for shortness of breath and possible fluid overload. Repeat serial metabolic panel. History of CVA. Patient has a negative MRI of the brain for any acute bleed or ischemic event. He is continued on aspirin and Plavix, Pravachol. Aortic valve replacement. Recent echo has been reviewed. Patient is on no anticoagulation. Chronic kidney disease stage III with recent history of renal artery stenosis. Monitor patient's renal function, strict intake and output and repeat metabolic panel in the morning. Congestive heart failure, diastolic dysfunction, preserved systolic ejection fraction. Previous echo has been reviewed. Patient will be given a trial of three doses of IV Lasix. Monitor for worsening respiratory distress. Monitor creatinine and urine output. Obstructive sleep apnea, on supplemental oxygen for now. We are unsure whether the patient has had a sleep study as an outpatient. Acute hypoxic respiratory failure. Oxygen saturation of 84% on room air per Dr. Millan.most likely due to decompensated chf. Deep vein thrombosis (DVT) prophylaxis with Lovenox subcu. Chronic venous stasis. Continue with Lasix diuresis, elevate and physical therapy (PT) for wound care. MTDD
[2018-11-23] VITALS: BP 160/76
[2018-11-23 00:21] LABS: CK-MB VALUE MASS 2.5 NG/ML (<3.6); CPK CREATINE PHOSPHOKINASE 56 U/L (39-308); MB/CK RELATIVE INDEX 4.46 (< OR =4); TROPONIN I < 0.02 NG/ML (< 0.10)
[2018-11-23] MEDS: FUROSEMIDE 40 MG/4 ML VIAL (J1940) IV SCH ×3 (02:58→18:10)
[2018-11-23 04:00] VITALS: BP 140/68
[2018-11-23 05:38] LABS: BASO % 0.5 % (0.0-1.0); EOS # 0.4 10^3/uL (0.0-0.5); EOS % 4.7 % (0.0-3.0); HEMATOCRIT 28.6 % (42.0-52.0); LYMPH # 0.4 10^3/uL (1.5-5.0); LYMPH % 4.7 % (24.0-44.0); MEAN CORPUSCULAR HEMOGLOBIN 26.5 pg (27.0-33.0); MEAN CORPUSCULAR HGB CONC 31.5 g/dl (32.0-36.5); MEAN CORPUSCULAR VOLUME 84.4 fl (80.0-96.0); MONO # 0.7 10^3/uL (0.0-0.8); MONO % 9.6 % (0.0-5.0); NEUTROPHILS # 5.9 10^3/uL (1.5-8.5); NEUTROPHILS % 80.2 % (36.0-66.0); PLATELET COUNT, AUTOMATED 240 10^3/uL (150-450); RED BLOOD COUNT 3.39 10^6/uL (4.30-6.10); WHITE BLOOD COUNT 7.4 10^3/uL (4.0-10.0)
[2018-11-23 06:05] LABS: BLOOD UREA NITROGEN 21 MG/DL (7-18); CALCIUM LEVEL 8.3 MG/DL (8.8-10.2); CARBON DIOXIDE LEVEL 30 MEQ/L (21-32); CHLORIDE LEVEL 104 MEQ/L (98-107); CPK CREATINE PHOSPHOKINASE 48 U/L (39-308); CREATININE FOR GFR 1.22 MG/DL (0.70-1.30); GLOMERULAR FILTRATION RATE > 60.0 (>42); GLUCOSE, FASTING 92 MG/DL (70-100); POTASSIUM SERUM 3.6 MEQ/L (3.5-5.1); SODIUM LEVEL 141 MEQ/L (136-145)
[2018-11-23 06:06] LABS: CK-MB VALUE MASS 1.6 NG/ML (<3.6); MB/CK RELATIVE INDEX 3.33 (< OR =4); TROPONIN I < 0.02 NG/ML (< 0.10)
[2018-11-23] MEDS: HumaLOG INSULIN (NovoLOG) PER UNIT SC SCH ×4 (07:30→20:25)
[2018-11-23 08:00] VITALS: BP 145/72
[2018-11-23] MEDS: GABAPENTIN 100 MG CAP PO SCH ×2 (08:42→20:21)
[2018-11-23] MEDS: FLUoxetine 20 MG CAP PO SCH (08:42)
[2018-11-23] MEDS: CARVedilol 6.25 MG TAB PO SCH ×2 (08:42→20:23)
[2018-11-23] MEDS: ASPIRIN 81 MG ENTERIC TAB PO SCH (08:43)
[2018-11-23] MEDS: CLOPIDOGREL 75 MG TAB PO SCH (08:43)
[2018-11-23] MEDS: amLODIPine 10 MG TAB PO SCH (08:43)
[2018-11-23] MEDS: POTASSIUM CHLORIDE 10 MEQ SR TABLET PO SCH ×2 (08:43→20:20)
[2018-11-23] MEDS: PRAVASTATIN 20 MG TAB PO SCH (08:43)
[2018-11-23] MEDS: HEPARIN SOD (PORCINE) 5000 UNITS/ML VIAL SQ SCH ×2 (08:44→20:21)
[2018-11-23] MEDS ORDERED: FLUBLOK(EGG FREE)(QUAD)INFLUENZA VACC 0.5ML SYRINGE (90682)18YRS&OLDER IM ONE (09:00)
--- NOTE | 2018-11-23 12:34 | IPNPDOC ---
Subjective Date Seen The patient was seen on 11/23/18. Subjective Chief Complaint/HPI Continues to have SOB and wheezing. says this has been slowly increasing for months, complains of persistent leg swelling. Says does not use oxygen at home, no fever or chills, no cough or phlegm. No nausea or vomiting or diarrhea. Complains of left lower chest wall pain . Says hit himself there when he fell. Objective Physical Examination General Exam: Positive: Alert, Cooperative, No Acute Distress Eye Exam: Positive: PERRLA, Conjunctiva & lids normal, EOMI; Negative: Sclera icteric ENT Exam: Positive: Atraumatic, Mucous membr. moist/pink, Pharynx Normal Neck Exam: Positive: JVD; Negative: Supple, thyromegaly, +2 carotid pulse wo bruit, Lymphadenopathy, Other Chest Exam: Positive: Wheezing, Diminished, Other (crackles at the base) Heart Exam: Positive: Rate Normal, Regular Rhythm, Normal S1, Normal S2, Murmurs; Negative: Rubs Telemetry: Positive: No significant arrhythmia, PVCs Abdomen Exam: Positive: Normal bowel sounds, Soft; Negative: Tenderness, Hepatospenomegaly Extremity Exam: Positive: Edema; Negative: Clubbing, Cyanosis Skin Exam: Positive: Nl turgor and temperature, Breakdown (venous statsis ulcers); Negative: Rash Neuro Exam: Positive: Normal Gait, Normal Speech Psych Exam: Positive: Mental status NL, Mood NL, Oriented x 3 Assessment /Plan Assessment This is a 68-year-old male who lives alone, with PMH of Coronary artery disease, coronary artery bypass graft (CABG). Hypertension. 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 Zoster. Cerebellar basal ganglia thalamic stroke. Obstructive sleep apnea with history of loop recorder, reflux, diastolic congestive heart failure.has been having episodes of syncope at home times two today, shortness of breath for the past few days. The patient is admitted as an inpatient for two midnights for the following issues: Recurrent syncope, Multifactorial Severe pulmonary hypertension, CHF exacerbation and hypoglycemic episodes. Continue for telemetry monitoring. Orthostatics were negative. Recurrent hypoglycemia. Most likely from exogenous insulin use. monitor finger sticks. lispro sliding scale. Diastolic Congestive heart failure exacerbation continue IV lasix fluid restriction and 2 gram sodium diet. monitor intake and output. Severe pulmonary hypertension with right heart failure continue diuresis. CKD stage 3 with mild ARMEN H/O renal artery stenosis. probably due to CHF exacerbation continue IV lasix. History of CVA. Patient has a negative MRI of the brain for any acute bleed or ischemic event. He is continued on aspirin and Plavix, Pravachol. Aortic valve replacement. Recent echo has been reviewed. Patient is on no anticoagulation. Obstructive sleep apnea, on supplemental oxygen for now. We are unsure whether the patient has had a sleep study as an outpatient. Acute hypoxic respiratory failure. Oxygen saturation of 84% on room air per Dr. Millan. due to CHF exacerbation. CAD cardiac markers negative. No issues at present. AVR status in last echo was functioning well. Deep vein thrombosis (DVT) prophylaxis with Lovenox subcu. Chronic venous stasis. Continue with Lasix diuresis, elevate and physical therapy (PT) for wound care. Plan/VTE VTE Prophylaxis Ordered?: Yes VS, I&O, 24H, Fishbone Vital Signs/I&O Vital Signs Date Time Temp Pulse Resp B/P (MAP) Pulse Ox O2 Delivery O2 Flow Rate FiO2 11/23/18 08:42 80 145/72 11/23/18 08:00 97.7 18 97 3.0 11/22/18 19:45 Nasal Cannula I&O- Last 24 Hours up to 6 AM 11/23/18 05:59 Intake Total 0 ml Output Total 1650 ml Balance -1650 ml Laboratory Data 24H LABS Laboratory Tests 2 11/22/18 13:01: Bedside Glucose (Misc Panel) 47L 11/22/18 15:14: Bedside Glucose (Misc Panel) 75L 11/22/18 18:04: Bedside Glucose (Misc Panel) 99 11/22/18 19:12: Anion Gap 9, Glomerular Filtration Rate 52.9, Lactic Acid Level 1.7, Blood Urea Nitrogen 24H, Creatinine 1.41H, Sodium Level 140, Potassium Level 4.1, Chloride Level 103, Carbon Dioxide Level 28, Calcium Level 8.3L, Total Creatine Kinase 61, Magnesium Level 2.2, Creatine Kinase MB 2.4, Creatine Kinase MB Relative Index 3.93, Troponin I < 0.02 11/22/18 21:26: Bedside Glucose (Misc Panel) 124H 11/22/18 22:15: Urine Color STRAW, Urine Appearance CLEAR, Urine pH 5.0, Urine Specific J[place] 1.012, Urine Protein NEGATIVE, Urine Glucose (UA) NEGATIVE, Urine Ketones NEGATIVE, Urine Blood NEGATIVE, Urine Nitrite NEGATIVE, Urine Bilirubin NEGATIVE, Urine Urobilinogen 0.2, Urine Leukocyte Esterase NEGATIVE, Urine WBC (Auto) 1, Urine RBC (Auto) 3, Urine Hyaline Casts (Auto) 0, Urine Bacteria (Aut o) NEGATIVE, Urine Squamous Epithelial Cells 0, Urine Mucus (Auto) SMALL, Urine Sperm (Auto) 11/22/18 23:41: Total Creatine Kinase 56, Creatine Kinase MB 2.5, Creatine Kinase MB Relative Index 4.46H, Troponin I < 0.02 11/23/18 05:23: Total Creatine Kinase 48, Creatine Kinase MB 1.6, Creatine Kinase MB Relative Index 3.33, Troponin I < 0.02, Immature Granulocyte % (Auto) 0.3, White Blood Count 7.4, Red Blood Count 3.39L, Hemoglobin 9.0L, Hematocrit 28.6L, Mean Corpuscular Volume 84.4, Mean Corpuscular Hemoglobin 26.5L, Mean Corpuscular Hemoglobin Concent 31.5L, Red Cell Distribution Width 15.6H, Platelet Count 240, Neutrophils (%) (Auto) 80.2H, Lymphocytes (%) (Auto) 4.7L, Monocytes (%) (Auto) 9.6H, Eosinophils (%) (Auto) 4.7H, Basophils (%) (Auto) 0.5, Neutrophils # (Auto) 5.9, Lymphocytes # (Auto) 0.4L, Monocytes # (Auto) 0.7, Eosinophils # (Au to) 0.4, Basophils # (Auto) 0.0, Nucleated Red Blood Cells % (auto) 0.0, Anion Gap 7L, Glomerular Filtration Rate > 60.0, Blood Urea Nitrogen 21H, Creatinine 1.22, Sodium Level 141, Potassium Level 3.6, Chloride Level 104, Carbon Dioxide Level 30, Calcium Level 8.3L 11/23/18 08:48: Bedside Glucose (Misc Panel) 102 11/23/18 11:06: Bedside Glucose (Misc Panel) 136H CBC/BMP Laboratory Tests 11/22/18 19:12 Calcium Level 8.3 L, Total Creatine Kinase 61 11/23/18 05:23 Calcium Level 8.3 L, Total Creatine Kinase 48, Red Blood Count 3.39 L, Mean Corpuscular Volume 84.4, Mean Corpuscular Hemoglobin 26.5 L, Mean Corpuscular Hemoglobin Concent 31.5 L, Red Cell Distribution Width 15.6 H, Neutrophils (%) (Auto) 80.2 H, Lymphocytes (%) (Auto) 4.7 L, Monocytes (%) (Auto) 9.6 H, Eosinophils (%) (Auto) 4.7 H, Basophils (%) (Auto) 0.5, Neutrophils # (Auto) 5.9, Lymphocytes # (Auto) 0.4 L, Monocytes # (Auto) 0.7, Eosinophils # (Auto) 0.4, Basophils # (Auto) 0.0 Microbiology Microbiology 11/22/18 Blood Culture, Received Pending 11/22/18 MRSA Screen, Resulted Pending 11/22/18 Respiratory Virus Panel (PCR) ([facility]) - Final, Resulted PATRICIA GILBERT MD Nov 23, 2018 12:34
[2018-11-23 12:55] VITALS: BP 147/70
[2018-11-23 16:00] VITALS: BP 140/64
[2018-11-23 20:00] VITALS: BP 187/82
[2018-11-24] VITALS (7 sets, daily range): BP systolic 146–166; BP diastolic 67–84
[2018-11-24] MEDS: FUROSEMIDE 40 MG/4 ML VIAL (J1940) IV SCH ×2 (03:41→11:04)
[2018-11-24 05:57] LABS: BASO % 0.6 % (0.0-1.0); EOS # 0.4 10^3/uL (0.0-0.5); EOS % 5.8 % (0.0-3.0); HEMATOCRIT 29.7 % (42.0-52.0); HEMOGLOBIN 9.2 g/dl (13.5-17.5); LYMPH # 0.4 10^3/uL (1.5-5.0); LYMPH % 5.5 % (24.0-44.0); MEAN CORPUSCULAR HEMOGLOBIN 25.5 pg (27.0-33.0); MEAN CORPUSCULAR VOLUME 82.3 fl (80.0-96.0); MONO # 0.6 10^3/uL (0.0-0.8); MONO % 9.5 % (0.0-5.0); NEUTROPHILS # 5.3 10^3/uL (1.5-8.5); NEUTROPHILS % 78.2 % (36.0-66.0); PLATELET COUNT, AUTOMATED 265 10^3/uL (150-450); RED BLOOD COUNT 3.61 10^6/uL (4.30-6.10); WHITE BLOOD COUNT 6.7 10^3/uL (4.0-10.0)
[2018-11-24 06:18] LABS: BLOOD UREA NITROGEN 19 MG/DL (7-18); CALCIUM LEVEL 8.6 MG/DL (8.8-10.2); CARBON DIOXIDE LEVEL 31 MEQ/L (21-32); CHLORIDE LEVEL 103 MEQ/L (98-107); CREATININE FOR GFR 1.19 MG/DL (0.70-1.30); GLOMERULAR FILTRATION RATE > 60.0 (>42); GLUCOSE, FASTING 143 MG/DL (70-100); POTASSIUM SERUM 3.9 MEQ/L (3.5-5.1); SODIUM LEVEL 141 MEQ/L (136-145)
[2018-11-24] MEDS: HEPARIN SOD (PORCINE) 5000 UNITS/ML VIAL SQ SCH ×2 (08:08→20:12)
[2018-11-24] MEDS: HumaLOG INSULIN (NovoLOG) PER UNIT SC SCH ×4 (08:09→20:06)
[2018-11-24] MEDS: ASPIRIN 81 MG ENTERIC TAB PO SCH (08:09)
[2018-11-24] MEDS: POTASSIUM CHLORIDE 10 MEQ SR TABLET PO SCH ×2 (08:09→20:11)
[2018-11-24] MEDS: amLODIPine 10 MG TAB PO SCH (08:10)
[2018-11-24] MEDS: PRAVASTATIN 20 MG TAB PO SCH (08:10)
[2018-11-24] MEDS: FLUoxetine 20 MG CAP PO SCH (08:10)
[2018-11-24] MEDS: CARVedilol 6.25 MG TAB PO SCH ×2 (08:10→20:12)
[2018-11-24] MEDS: GABAPENTIN 100 MG CAP PO SCH ×2 (08:10→20:12)
[2018-11-24] MEDS: CLOPIDOGREL 75 MG TAB PO SCH (08:10)
--- NOTE | 2018-11-24 11:19 | IPNPDOC ---
Subjective Date Seen The patient was seen on 11/24/18. Subjective Chief Complaint/HPI SOB is better, patient is off oxygen this am. Leg swelling remains unchanged. No fever or chills, no chest pain or cough. Objective Physical Examination General Exam: Positive: Alert, Cooperative, No Acute Distress Eye Exam: Positive: PERRLA, Conjunctiva & lids normal, EOMI; Negative: Sclera icteric ENT Exam: Positive: Atraumatic, Mucous membr. moist/pink, Pharynx Normal Neck Exam: Positive: JVD; Negative: Supple, thyromegaly, +2 carotid pulse wo bruit, Lymphadenopathy, Other Chest Exam: Positive: Wheezing, Diminished, Other (crackles at the base) Heart Exam: Positive: Rate Normal, Regular Rhythm, Normal S1, Normal S2, Murmurs; Negative: Rubs Telemetry: Positive: No significant arrhythmia, PVCs Abdomen Exam: Positive: Normal bowel sounds, Soft; Negative: Tenderness, Hepatospenomegaly Extremity Exam: Positive: Edema; Negative: Clubbing, Cyanosis Skin Exam: Positive: Nl turgor and temperature, Breakdown (venous statsis ulcers); Negative: Rash Neuro Exam: Positive: Normal Gait, Normal Speech Psych Exam: Positive: Mental status NL, Mood NL, Oriented x 3 Assessment /Plan Assessment This is a 68-year-old male who lives alone, with PMH of Coronary artery disease, coronary artery bypass graft (CABG). Hypertension. 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 Zoster. Cerebellar basal ganglia thalamic stroke. Obstructive sleep apnea with history of loop recorder, reflux, diastolic congestive heart failure.has been having episodes of syncope at home times two today, shortness of breath for the past few days. The patient is admitted as an inpatient for two midnights for the following issues: Recurrent syncope, Multifactorial Severe pulmonary hypertension, CHF exacerbation and hypoglycemic episodes. Had 24 hours of tele without any events. will place on remote tele now. Orthostatics were negative. Recurrent hypoglycemia. Most likely from exogenous insulin use. monitor finger sticks. lispro sliding scale. Diastolic Congestive heart failure exacerbation continue IV lasix fluid restriction and 2 gram sodium diet. monitor intake and output. Severe pulmonary hypertension with right heart failure continue diuresis. CKD stage 3 with mild ARMEN H/O renal artery stenosis. probably due to CHF exacerbation continue IV lasix. History of CVA. Patient has a negative MRI of the brain for any acute bleed or ischemic event. He is continued on aspirin and Plavix, Pravachol. Aortic valve replacement. Recent echo has been reviewed. Patient is on no anticoagulation. Obstructive sleep apnea, on supplemental oxygen for now. We are unsure whether the patient has had a sleep study as an outpatient. Acute hypoxic respiratory failure. Oxygen saturation of 84% on room air per Dr. Millan. due to CHF exacerbation. CAD cardiac markers negative. No issues at present. AVR status in last echo was functioning well. Deep vein thrombosis (DVT) prophylaxis with Lovenox subcu. Chronic venous stasis. Continue with Lasix diuresis, elevate and physical therapy (PT) for wound care. Plan/VTE VTE Prophylaxis Ordered?: Yes VS, I&O, 24H, Fishbone Vital Signs/I&O Vital Signs Date Time Temp Pulse Resp B/P (MAP) Pulse Ox O2 Delivery O2 Flow Rate FiO2 11/24/18 08:10 65 148/75 11/24/18 07:00 98.1 16 90 11/23/18 13:00 11/22/18 19:45 Nasal Cannula I&O- Last 24 Hours up to 6 AM 11/24/18 06:00 Intake Total 1090 ml Output Total 740 ml Balance 350 ml Laboratory Data 24H LABS Laboratory Tests 2 11/23/18 14:17: Bedside Glucose (Misc Panel) 166H 11/23/18 17:47: Bedside Glucose (Misc Panel) 196H 11/23/18 20:19: Bedside Glucose (Misc Panel) 197H 11/24/18 05:36: Immature Granulocyte % (Auto) 0.4, White Blood Count 6.7, Red Blood Count 3.61L, Hemoglobin 9.2L, Hematocrit 29.7L, Mean Corpuscular Volume 82.3, Mean Corpuscular Hemoglobin 25.5L, Mean Corpuscular Hemoglobin Concent 31.0L, Red Cell Distribution Width 15.4H, Platelet Count 265, Neutrophils (%) (Auto) 78.2H, Lymphocytes (%) (Auto) 5.5L, Monocytes (%) (Auto) 9.5H, Eosinophils (%) (Auto) 5.8H, Basophils (%) (Auto) 0.6, Neutrophils # (Auto) 5.3, Lymphocytes # (Auto) 0.4L, Monocytes # (Auto) 0.6, Eosinophils # (Auto) 0.4, Basophils # (Auto) 0.0, Nucleated Red Blood Cells % (auto) 0.0, Anion Gap 7L, Glomerular Filtration Rate > 60.0, Blood Urea Nitrogen 19H, Creatinine 1.19, Sodium Level 141, Potassium Level 3.9, Chloride Level 103, Carbon Dioxide Level 31, Calcium Level 8.6L CBC/BMP Laboratory Tests 11/24/18 05:36 Red Blood Count 3.61 L, Mean Corpuscular Volume 82.3, Mean Corpuscular Hemoglobin 25.5 L, Mean Corpuscular Hemoglobin Concent 31.0 L, Red Cell Distribution Width 15.4 H, Neutrophils (%) (Auto) 78.2 H, Lymphocytes (%) (Auto) 5.5 L, Monocytes (%) (Auto) 9.5 H, Eosinophils (%) (Auto) 5.8 H, Basophils (%) (Auto) 0.6, Neutrophils # (Auto) 5.3, Lymphocytes # (Auto) 0.4 L, Monocytes # (Auto) 0.6, Eosinophils # (Auto) 0.4, Basophils # (Auto) 0.0, Calcium Level 8.6 L Microbiology Microbiology 11/22/18 MRSA Screen - Final, Complete 11/22/18 Respiratory Virus Panel (PCR) ([facility]) - Final, Complete 11/22/18 Blood Culture - Preliminary, Resulted No growth after 24 hours . All specim... PATRICIA GILBERT MD Nov 24, 2018 11:19
[2018-11-24] MEDS: FUROSEMIDE 100 MG/10 ML VIAL (J1940) IV SCH (16:33)
[2018-11-24] MEDS ORDERED: SLF 3 ML SYR IV PRN (16:45)
[2018-11-24] MEDS: SLF 3 ML SYR IV SCH (20:12)
[2018-11-25 04:00] VITALS: BP 137/62
[2018-11-25] MEDS: SLF 3 ML SYR IV SCH ×3 (04:28→19:58)
[2018-11-25 06:14] LABS: BASO # 0.1 10^3/uL (0.0-0.2); BASO % 0.8 % (0.0-1.0); EOS # 0.4 10^3/uL (0.0-0.5); EOS % 6.8 % (0.0-3.0); HEMATOCRIT 29.5 % (42.0-52.0); LYMPH # 0.3 10^3/uL (1.5-5.0); LYMPH % 5.3 % (24.0-44.0); MEAN CORPUSCULAR HEMOGLOBIN 25.1 pg (27.0-33.0); MEAN CORPUSCULAR HGB CONC 30.5 g/dl (32.0-36.5); MEAN CORPUSCULAR VOLUME 82.2 fl (80.0-96.0); MONO # 0.7 10^3/uL (0.0-0.8); MONO % 10.7 % (0.0-5.0); NEUTROPHILS # 4.9 10^3/uL (1.5-8.5); NEUTROPHILS % 76.1 % (36.0-66.0); PLATELET COUNT, AUTOMATED 267 10^3/uL (150-450); RED BLOOD COUNT 3.59 10^6/uL (4.30-6.10); WHITE BLOOD COUNT 6.5 10^3/uL (4.0-10.0)
[2018-11-25 06:43] LABS: BLOOD UREA NITROGEN 20 MG/DL (7-18); CALCIUM LEVEL 8.5 MG/DL (8.8-10.2); CARBON DIOXIDE LEVEL 31 MEQ/L (21-32); CHLORIDE LEVEL 102 MEQ/L (98-107); CREATININE FOR GFR 1.17 MG/DL (0.70-1.30); GLOMERULAR FILTRATION RATE > 60.0 (>42); GLUCOSE, FASTING 135 MG/DL (70-100); POTASSIUM SERUM 3.9 MEQ/L (3.5-5.1); SODIUM LEVEL 140 MEQ/L (136-145)
[2018-11-25 08:00] VITALS: BP 136/86
--- NOTE | 2018-11-25 08:24 | EEG ---
DATE OF EE11/23/2018 REFERRING PHYSICIAN: Dr. Amalia Rolon DIAGNOSIS: Syncope. EEG#: [id number] HISTORY: The patient is a 68-year-old man who was admitted at [facility] due to passing out spells which started in January 2018. He had two more spells recently. This EEG was done to rule out epileptic potential. He is currently taking aspirin, carvedilol, Plavix, Prozac, gabapentin, pravastatin, amlodipine, etc. TECHNICAL DESCRIPTION: This digital EEG was recorded by 21 scalp ear and two EKG electrodes and was reviewed in bipolar and referential montages following reformatting in 10-20 international electrode placement system. INTERPRETATION: The patient was noted to be in awake and drowsy states during this EEG. Resting awake background rhythm consisted of 6-7 Hz theta activity measuring 15-40 microvolts in amplitude which was symmetric and reactive to eye opening. Attenuation of posterior dominant rhythm was seen during transition into drowsiness. Stage I and II sleep were reviewed were symmetric bilaterally. Hyperventilation could not be performed. Photic stimulation remained unremarkable. No focal, lateralizing or epileptiform abnormalities were seen. No clinical or electrographic seizures were noted. EKG revealed sinus rhythm. CONCLUSION: This EEG in awake, drowsy states, stage I and II sleep is abnormal due to presence of mild generalized slowing and disorganization of background consistent with mild diffuse nonspecific diffuse cerebral dysfunction such as seen in encephalopathy due to multiple potential causes. No epileptiform abnormalities were seen. Clinical correlation is recommended.
[2018-11-25] MEDS: HumaLOG INSULIN (NovoLOG) PER UNIT SC SCH ×3 (08:42→17:26)
[2018-11-25] MEDS: PRAVASTATIN 20 MG TAB PO SCH (08:42)
[2018-11-25] MEDS: HEPARIN SOD (PORCINE) 5000 UNITS/ML VIAL SQ SCH ×2 (08:42→19:58)
[2018-11-25] MEDS: ASPIRIN 81 MG ENTERIC TAB PO SCH (08:42)
[2018-11-25] MEDS: FUROSEMIDE 100 MG/10 ML VIAL (J1940) IV SCH ×2 (08:42→17:26)
[2018-11-25] MEDS: CARVedilol 6.25 MG TAB PO SCH ×2 (08:43→19:58)
[2018-11-25] MEDS: CLOPIDOGREL 75 MG TAB PO SCH (08:44)
[2018-11-25] MEDS: FLUoxetine 20 MG CAP PO SCH (08:44)
[2018-11-25] MEDS: amLODIPine 10 MG TAB PO SCH (08:44)
[2018-11-25] MEDS: GABAPENTIN 100 MG CAP PO SCH ×2 (08:44→19:58)
[2018-11-25] MEDS: POTASSIUM CHLORIDE 10 MEQ SR TABLET PO SCH ×2 (08:45→19:58)
--- NOTE | 2018-11-25 09:12 | IPNPDOC ---
Subjective Date Seen The patient was seen on 11/25/18. Subjective Chief Complaint/HPI Feels much better, SOB is better, says legs are feeling reinforcing rod layer. He is walking better, worked with PT. Objective Physical Examination General Exam: Positive: Alert, Cooperative, No Acute Distress Eye Exam: Positive: PERRLA, Conjunctiva & lids normal, EOMI; Negative: Sclera icteric ENT Exam: Positive: Atraumatic, Mucous membr. moist/pink, Pharynx Normal Neck Exam: Positive: JVD; Negative: Supple, thyromegaly, +2 carotid pulse wo bruit, Lymphadenopathy, Other Chest Exam: Positive: Diminished, Other (crackles at the base) Heart Exam: Positive: Rate Normal, Regular Rhythm, Normal S1, Normal S2, Murmurs; Negative: Rubs Telemetry: Positive: No significant arrhythmia, PVCs Abdomen Exam: Positive: Normal bowel sounds, Soft; Negative: Tenderness, Hepatospenomegaly Extremity Exam: Positive: Edema; Negative: Clubbing, Cyanosis Skin Exam: Positive: Nl turgor and temperature, Breakdown (venous statsis ulcers), Other skin issue (bilateral lower ex with stasis dermatitis, lymphedema, thick skin with ulcer and ecxematous changes. ); Negative: Rash Neuro Exam: Positive: Normal Gait, Normal Speech Psych Exam: Positive: Mental status NL, Mood NL, Oriented x 3 Assessment /Plan Assessment This is a 68-year-old male who lives alone, with PMH of Coronary artery disease, coronary artery bypass graft (CABG). Hypertension. 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 Zoster. Cerebellar basal ganglia thalamic stroke. Obstructive sleep apnea with history of loop recorder, reflux, diastolic congestive heart failure.has been having epi sodes of syncope at home times two, shortness of breath for the past few days. The patient is admitted as an inpatient for two midnights for the following issues: Recurrent syncope, Multifactorial Severe pulmonary hypertension, CHF exacerbation and hypoglycemic episodes. 48 hours of tele no events. Orthostatics were negative. Recurrent hypoglycemia. Most likely from exogenous insulin use. monitor finger sticks. lispro sliding scale. Diastolic Congestive heart failure exacerbation continue IV lasix fluid restriction and 2 gram sodium diet. monitor intake and output. Severe pulmonary hypertension with right heart failure continue diuresis. CKD stage 3 with mild ARMEN H/O renal artery stenosis. probably due to CHF exacerbation continue IV lasix. History of CVA. Patient has a negative MRI of the brain for any acute bleed or ischemic event. He is continued on aspirin and Plavix, Pravachol. Aortic valve replacement. Recent echo has been reviewed. Patient is on no anticoagulation. Obstructive sleep apnea, on supplemental oxygen for now. We are unsure whether the patient has had a sleep study as an outpatient. Acute hypoxic respiratory failure. Oxygen saturation of 84% on room air per Dr. Millan. due to CHF exacerbation. now resolved. off oxygen. CAD cardiac markers negative. No issues at present. AVR status in last echo was functioning well. Deep vein thrombosis (DVT) prophylaxis with Lovenox subcu. Chronic venous stasis. Continue with Lasix diuresis, elevate and physical therapy (PT) for wound care. Plan/VTE VTE Prophylaxis Ordered?: Yes VS, I&O, 24H, Ashley Vital Signs/I&O Vital Signs Date Time Temp Pulse Resp B/P (MAP) Pulse Ox O2 Delivery O2 Flow Rate FiO2 11/25/18 08:43 75 136/86 11/25/18 04:00 98.0 18 94 11/23/18 13:00 11/22/18 19:45 Nasal Cannula I&O- Last 24 Hours up to 6 AM 11/25/18 06:00 Intake Total 1820 ml Output Total 1955 ml Balance -135 ml Laboratory Data 24H LABS Laboratory Tests 2 11/24/18 11:47: Bedside Glucose (Misc Panel) 216H 11/24/18 16:18: Bedside Glucose (Misc Panel) 165H 11/24/18 19:27: Bedside Glucose (Misc Panel) 222H 11/25/18 05:46: Immature Granulocyte % (Auto) 0.3, White Blood Count 6.5, Red Blood Count 3.59L, Hemoglobin 9.0L, Hematocrit 29.5L, Mean Corpuscular Volume 82.2, Mean Corpuscular Hemoglobin 25.1L, Mean Corpuscular Hemoglobin Concent 30.5L, Red Cell Distribution Width 15.4H, Platelet Count 267, Neutrophils (%) (Auto) 76.1H, Lymphocytes (%) (Auto) 5.3L, Monocytes (%) (Auto) 10.7H, Eosinophils (%) (Auto) 6.8H, Basophils (%) (Auto) 0.8, Neutrophils # (Auto) 4.9, Lymphocytes # (Auto) 0.3L, Monocytes # (Auto) 0.7, Eosinophils # (Auto) 0.4, Basophils # (Auto) 0.1, Nucleated Red Blood Cells % (auto) 0.0, Anion Gap 7L, Glomerular Filtration Rate > 60.0, Blood Urea Nitrogen 20H, Creatinine 1.17, Sodium Level 140, Potassium Level 3.9, Chloride Level 102, Carbon Dioxide Level 31, Calcium Level 8.5L CBC/BMP Laboratory Tests 11/25/18 05:46 Red Blood Count 3.59 L, Mean Corpuscular Volume 82.2, Mean Corpuscular Hemoglobin 25.1 L, Mean Corpuscular Hemoglobin Concent 30.5 L, Red Cell D istribution Width 15.4 H, Neutrophils (%) (Auto) 76.1 H, Lymphocytes (%) (Auto) 5.3 L, Monocytes (%) (Auto) 10.7 H, Eosinophils (%) (Auto) 6.8 H, Basophils (%) (Auto) 0.8, Neutrophils # (Auto) 4.9, Lymphocytes # (Auto) 0.3 L, Monocytes # (Auto) 0.7, Eosinophils # (Auto) 0.4, Basophils # (Auto) 0.1, Calcium Level 8.5 L Microbiology Microbiology 11/22/18 MRSA Screen - Final, Complete 11/22/18 Respiratory Virus Panel (PCR) ([facility]) - Final, Complete 11/22/18 Blood Culture - Preliminary, Resulted No Growth after 48 hours. All Specime... PATRICIA GILBERT MD Nov 25, 2018 09:11
[2018-11-25 12:00] VITALS: BP 160/74
[2018-11-25 16:00] VITALS: BP 147/67
[2018-11-25] MEDS: glipiZIDE (GLUCOTROL) 5 MG TAB PO SCH (19:57)
[2018-11-25 20:00] VITALS: BP 163/93
[2018-11-25] MEDS ORDERED: LEVEMIR (INSULIN DETEMIR) 1 UNITS/0.01ML SC SCH (21:00)
[2018-11-25 23:59] VITALS: BP 154/67
[2018-11-26] MEDS: SLF 3 ML SYR IV SCH (03:33)
[2018-11-26 04:00] VITALS: BP 142/84
[2018-11-26 05:45] LABS: BASO % 0.3 % (0.0-1.0); EOS # 0.4 10^3/uL (0.0-0.5); EOS % 6.4 % (0.0-3.0); HEMATOCRIT 28.7 % (42.0-52.0); LYMPH # 0.4 10^3/uL (1.5-5.0); LYMPH % 6.1 % (24.0-44.0); MEAN CORPUSCULAR HEMOGLOBIN 25.6 pg (27.0-33.0); MEAN CORPUSCULAR HGB CONC 31.4 g/dl (32.0-36.5); MEAN CORPUSCULAR VOLUME 81.8 fl (80.0-96.0); MONO # 0.7 10^3/uL (0.0-0.8); MONO % 10.9 % (0.0-5.0); NEUTROPHILS # 4.9 10^3/uL (1.5-8.5); PLATELET COUNT, AUTOMATED 263 10^3/uL (150-450); RED BLOOD COUNT 3.51 10^6/uL (4.30-6.10); WHITE BLOOD COUNT 6.4 10^3/uL (4.0-10.0)
[2018-11-26 06:07] LABS: BLOOD UREA NITROGEN 21 MG/DL (7-18); CALCIUM LEVEL 8.5 MG/DL (8.8-10.2); CARBON DIOXIDE LEVEL 32 MEQ/L (21-32); CHLORIDE LEVEL 103 MEQ/L (98-107); CREATININE FOR GFR 1.22 MG/DL (0.70-1.30); GLOMERULAR FILTRATION RATE > 60.0 (>42); GLUCOSE, FASTING 126 MG/DL (70-100); POTASSIUM SERUM 3.9 MEQ/L (3.5-5.1); SODIUM LEVEL 140 MEQ/L (136-145)
[2018-11-26] MEDS ORDERED: GLIP10TA18 PO (06:40)
[2018-11-26] MEDS ORDERED: METF500T13 PO (06:40)
[2018-11-26 08:00] VITALS: BP 147/80
[2018-11-26] MEDS ORDERED: HUMA100I5 SC (09:20)
[2018-11-26] MEDS: amLODIPine 10 MG TAB PO SCH (09:24)
[2018-11-26] MEDS: CLOPIDOGREL 75 MG TAB PO SCH (09:24)
[2018-11-26] MEDS: GABAPENTIN 100 MG CAP PO SCH (09:24)
[2018-11-26] MEDS: FLUoxetine 20 MG CAP PO SCH (09:24)
[2018-11-26 09:25] VITALS: BP 147/80
[2018-11-26] MEDS: HEPARIN SOD (PORCINE) 5000 UNITS/ML VIAL SQ SCH (09:25)
[2018-11-26] MEDS: CARVedilol 6.25 MG TAB PO SCH (09:25)
[2018-11-26] MEDS: glipiZIDE (GLUCOTROL) 5 MG TAB PO SCH (09:25)
[2018-11-26] MEDS: PRAVASTATIN 20 MG TAB PO SCH (09:25)
[2018-11-26] MEDS: POTASSIUM CHLORIDE 10 MEQ SR TABLET PO SCH (09:25)
[2018-11-26] MEDS: ASPIRIN 81 MG ENTERIC TAB PO SCH (09:25)
[2018-11-26 12:00] VITALS: BP 142/87
--- NOTE | 2018-11-26 14:19 | DS.PDOC ---
Discharge Summary General Date of Admission Nov 22, 2018 at 14:20 Date of Discharge 11/26/18 Discharge Summary PROCEDURES PERFORMED DURING STAY: [None]. DISCHARGE DIAGNOSES: Diastolic CHF exacerbation Acute respiratory failure with hypoxia resolved. Hypoglycemia with syncopal episodes Severe pulmonary hypertension with chronic right heart failure chronic bilateral venous stasis with stasis dermatitis. SECONDARY DIAGNOSIS: Coronary artery disease, coronary artery bypass graft (CABG). Hypertension. 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 Zoster. Cerebellar basal ganglia thalamic stroke. Obstructive sleep apnea with history of loop recorder, reflux, diastolic congestive heart failure. COMPLICATIONS/CHIEF COMPLAINT: Syncope. HISTORY OF PRESENT ILLNESS: See history and physical HOSPITAL COURSE: This is a 68-year-old male who lives alone, with PMH of Coronary artery disease, coronary artery bypass graft (CABG). Hypertension. 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 Zoster. Cerebellar basal ganglia thalamic stroke. Obstructive sleep apnea with history of loop recorder, reflux, diastolic congestive heart failure.has been having episodes of syncope at home times two, shortness of breath for the past few days. The patient is admitted as an inpatient for two midnights for the following issues: Recurrent syncope Multifactorial Severe pulmonary hypertension, CHF exacerbation and hypoglycemic episodes. 48 hours of tele no events. Orthostatics were negative. Recurrent hypoglycemia. Most likely from too much exogenous insulin use. patient is legally blind and has trouble seeing the numbers on the insulin pens. PFS is working with him and home health services . And the plan is to get a magnifying glass to help him see. Home health is going follow up closely with him. FS in hospital about 150 to 220. Says he is eating more than he does at home. He only has a yogurt and coffee for breakfast. has meals on wheels for lunch and he gets his own dinner which is usually a cheeseburger or frozen food. stopped home long acting insulin will continue lispro 8 units bid before lunch and dinner. increased glipizide ER from 5 to 10 and started on metformin 500 bid. follow up with PMD. Diastolic Congestive heart failure exacerbation continue home lasix. fluid restriction and 2 gram sodium diet. monitor intake and output. Severe pulmonary hypertension with right heart failure continue diuretics CKD stage 3 with mild ARMEN H/O renal artery stenosis. probably due to CHF exacerbation now resolved. History of CVA. Patient has a negative MRI of the brain for any acute bleed or ischemic event. He is continued on aspirin and Plavix, Pravachol. Aortic valve replacement. Recent echo has been reviewed. Patient is on no anticoagulation. Obstructive sleep apnea We are unsure whether the patient has had a sleep study as an outpatient. Should get a sleep study as outpatient. Acute hypoxic respiratory failure. Oxygen saturation of 84% on room air per Dr. Millan. due to CHF exacerbation. now resolved. off oxygen. CAD cardiac markers negative. No issues at present. AVR status in last echo was functioning well. DISCHARGE MEDICATIONS: Please see below. ALLERGIES: Please see below. PHYSICAL EXAMINATION ON DISCHARGE: VITAL SIGNS: Please see below. General Exam: Positive: Alert, Cooperative, No Acute Distress Eye Exam: Positive: PERRLA, Conjunctiva & lids normal, EOMI; Negative: Sclera icteric ENT Exam: Positive: Atraumatic, Mucous membr. moist/pink, Pharynx Normal Neck Exam: Positive: JVD; Negative: Supple, thyromegaly, +2 carotid pulse no bruit, Lymphadenopathy, Other Chest Exam: Positive: Diminished, Other (crackles at the base) Heart Exam: Positive: Rate Normal, Regular Rhythm, Normal S1, Normal S2, Murmurs; Negative: Rubs Telemetry: Positive: No significant arrhythmia, PVCs Abdomen Exam: Positive: Normal bowel sounds, Soft; Negative: Tenderness, Hepatosplenomegaly Extremity Exam: Positive: Edema; Negative: Clubbing, Cyanosis Skin Exam: Positive: Nl turgor and temperature, Breakdown (venous stasis ulcers), Other skin issue (bilateral lower ex with stasis dermatitis, lymphedema, thick skin with ulcer and ecxematous changes. ); Negative: Rash Neuro Exam: Positive: Normal Gait, Normal Speech Psych Exam: Positive: Mental status NL, Mood NL, Oriented x 3 LABORATORY DATA: Please see below. ACTIVITY: [As tolerated]. DIET: carb consistent, 1800 cc fluid restriction DISCHARGE PLAN: home DISPOSITION: 06 Home Health Service. DISCHARGE INSTRUCTIONS: Follow up PMD in 1 week Maintain a blood sugar chart Referred to wound clinic DISCHARGE CONDITION: [Stable]. TIME SPENT ON DISCHARGE: 35 minutes. Vital Signs/I&Os Vital Signs Date Time Temp Pulse Resp B/P (MAP) Pulse Ox O2 Delivery O2 Flow Rate FiO2 11/26/18 12:00 97.7 82 18 142/87 (105) 93 11/23/18 13:00 11/22/18 19:45 Nasal Cannula I&O- Last 24 Hours up to 6 AM 11/26/18 05:59 Intake Total 1620 ml Output Total 935 ml Balance 685 ml Laboratory Data Labs 24H Laboratory Tests 2 11/25/18 16:58: Bedside Glucose (Misc Panel) 178H 11/25/18 19:38: Bedside Glucose (Misc Panel) 201H 11/26/18 05:20: Immature Granulocyte % (Auto) 0.3, White Blood Count 6.4, Red Blood Count 3.51L, Hemoglobin 9.0L, Hematocrit 28.7L, Mean Corpuscular Volume 81.8, Mean Corpuscular Hemoglobin 25.6L, Mean Corpuscular Hemoglobin Concent 31.4L, Red Cell Distribution Width 15.5H, Platelet Count 263, Neutrophils (%) (Auto) 76.0H, Lymphocytes (%) (Auto) 6.1L, Monocytes (%) (Auto) 10.9H, Eosinophils (%) (Auto) 6.4H, Basophils (%) (Auto) 0.3, Neutrophils # (Auto) 4.9, Lymphocytes # (Auto) 0.4L, Monocytes # (Auto) 0.7, Eosinophils # (Auto) 0.4, Basophils # (Auto) 0.0, Nucleated Red Blood Cells % (auto) 0.0, Anion Gap 5L, Glomerular Filtration Rate > 60.0, Blood Urea Nitrogen 21H, Creatinine 1.22, Sodium Level 140, Potassium Level 3.9, Chloride Level 103, Carbon Dioxide Level 32, Calcium Level 8.5L 11/26/18 12:14: Bedside Glucose (Misc Panel) 224H CBC/BMP Laboratory Tests 11/26/18 05:20 Red Blood Count 3.51 L, Mean Corpuscular Volume 81.8, Mean Corpuscular Hemoglobin 25.6 L, Mean Corpuscular Hemoglobin Concent 31.4 L, Red Cell Distribution Width 15.5 H, Neutrophils (%) (Auto) 76.0 H, Lymphocytes (%) (Auto) 6.1 L, Monocytes (%) (Auto) 10.9 H, Eosinophils (%) (Auto) 6.4 H, Basophils (%) (Auto) 0.3, Neutrophils # (Auto) 4.9, Lymphocytes # (Auto) 0.4 L, Monocytes # (Auto) 0.7, Eosinophils # (Auto) 0.4, Basophils # (Auto) 0.0, Calcium Level 8.5 L FSBS Laboratory Tests Test 11/25/18 16:58 11/25/18 19:38 11/26/18 12:14 Range/Units Bedside Glucose (Misc Panel) 178 201 224 83-110 MG/DL Microbiology Microbiology 11/22/18 MRSA Screen - Final, Complete 11/22/18 Respiratory Virus Panel (PCR) (BOBBY) - Final, Complete 11/22/18 Blood Culture - Preliminary, Resulted No Growth after 72 hours. All specime... Discharge Medications Scheduled Amlodipine Besylate (Amlodipine Besylate) 10 Mg Tablet, 10 MG PO DAILY, (Reported) Aspirin (Aspir 81) 81 Mg Tablet.dr, 81 MG PO DAILY, (Reported) Carvedilol (Carvedilol) 6.25 Mg Tablet, 6.25 MG PO BID, (Reported) Clopidogrel Bisulfate (Clopidogrel) 75 Mg Tablet, 75 MG PO DAILY, (Reported) Fluoxetine Hcl (Fluoxetine HCl) 40 Mg Capsule, 40 MG PO DAILY, (Reported) Furosemide (Furosemide) 40 Mg Tablet, 80 MG PO BID, (Reported) TAKES AT 0800/1500 Gabapentin (Gabapentin) 100 Mg Capsule, 100 MG PO BID, (Reported) Glipizide (Glipizide ER) 10 Mg Tab.er.24, 1 TAB PO DAILY Hydralazine HCl (Hydralazine HCl) 25 Mg Tablet, 25 MG PO BID, (Reported) Insulin Lispro (Humalog Kwikpen U-100) 100 Unit/1 Ml Insuln.pen, 8 UNITS SC BIDWM before lunch and before dinner Isosorbide Mononitrate (Isosorbide Mononitrate ER) 30 Mg Tab.er.24h, 30 MG PO DAILY, (Reported) Metformin HCl (Metformin HCl) 500 Mg Tablet, 500 MG PO BID Omeprazole (Omeprazole) 20 Mg Capsule.dr, 20 MG PO DAILY, (Reported) Potassium Chloride (Potassium Chloride) 20 Meq Tab.er.prt, 20 MEQ PO BID, (Rep orted) Pravastatin Sodium (Pravastatin Sodium) 40 Mg Tablet, 40 MG PO DAILY, (Reported) Scheduled PRN Acetaminophen (Acetaminophen) 500 Mg Tablet, 1,000 MG PO Q6H PRN for PAIN, (Reported) Meclizine HCl (Meclizine HCl) 25 Mg Tablet, 25 MG PO Q8H PRN for DIZZINESS, (Reported) Nitroglycerin (Nitrostat) 0.4 Mg Tab.subl, 0.4 MG SL Q5MP PRN for CHEST PAIN, (Reported) Allergies Coded Allergies: No Known Allergies (Unverified , 07/19/18) PATRICIA GILBERT MD Nov 26, 2018 14:19
== END 2018-11-26 13:45 | disposition home health service (06) | DRG 637 ==
LOC: M ED 10:48 → EDBD 10:48 → M ED INP 14:20 → M PCU 20:35
PROVIDERS: ADMIT General Practice; ATTEND Internal Medicine Nephrology
DX: E11.649 Type 2 diabetes mellitus with hypoglycemia without coma (principal); I50.31 Acute diastolic (congestive) heart failure; J96.01 Acute respiratory failure with hypoxia; I69.351 Hemiplegia and hemiparesis following cerebral infarction affecting right dominant side; I13.0 Hypertensive heart and chronic kidney disease with heart failure and stage 1 through stage 4 chronic kidney disease, or unspecified chronic kidney disease; N17.9 Acute kidney failure, unspecified; N18.3 Chronic kidney disease, stage 3 (moderate); I25.10 Atherosclerotic heart disease of native coronary artery without angina pectoris; I27.20 Pulmonary hypertension, unspecified; Z95.1 Presence of aortocoronary bypass graft; E78.5 Hyperlipidemia, unspecified; Z85.46 Personal history of malignant neoplasm of prostate; Z95.2 Presence of prosthetic heart valve; E11.40 Type 2 diabetes mellitus with diabetic neuropathy, unspecified; G47.33 Obstructive sleep apnea (adult) (pediatric); K21.9 Gastro-esophageal reflux disease without esophagitis; Z79.82 Long term (current) use of aspirin; Z79.899 Other long term (current) drug therapy

== ENCOUNTER → 2018-11-30 | Outpatient (REF) | payer MEDICARE, MEDICAID ==
[~2018-11-30] MED LIST changes: +ACET-683 PO; +ASPI81TA85 PO; +GLIP10TA18 PO; +HUMA100I5 SC; +HYDR-3910 PO; +METF500T13 PO; +POTA20TA6 PO; +TRES1INJ SC
[2018-11-30 14:27] LABS: CALCIUM LEVEL 8.5 MG/DL (8.8-10.2); CREATININE FOR GFR 1.33 MG/DL (0.70-1.30); GLOMERULAR FILTRATION RATE 56.6 (>42); POTASSIUM SERUM 3.8 MEQ/L (3.5-5.1)
== END ==
LOC: M SHH 14:13
PROVIDERS: ATTEND Family Medicine
DX: E11.43 Type 2 diabetes mellitus with diabetic autonomic (poly)neuropathy (principal)

== ENCOUNTER → 2018-12-29 | Outpatient (REF) | payer MEDICARE, MEDICAID ==
[~2018-12-29] MED LIST changes: +OMEP-358 PO; -OMEP20TA PO
[2018-12-29 17:36] LABS: BLOOD UREA NITROGEN 25 MG/DL (7-18); CARBON DIOXIDE LEVEL 34 MEQ/L (21-32); CHLORIDE LEVEL 100 MEQ/L (98-107); CREATININE FOR GFR 1.31 MG/DL (0.70-1.30); GLOMERULAR FILTRATION RATE 57.6 (>42); GLUCOSE, FASTING 170 MG/DL (70-100); NT-PRO BNP 3325 PG/ML (<125); POTASSIUM SERUM 4.1 MEQ/L (3.5-5.1); SODIUM LEVEL 141 MEQ/L (136-145); TROPONIN I < 0.02 NG/ML (< 0.10)
== END ==
LOC: M SHH 16:06
PROVIDERS: ATTEND Family Medicine
DX: I50.33 Acute on chronic diastolic (congestive) heart failure (principal); R79.89 Other specified abnormal findings of blood chemistry

== ENCOUNTER 2019-01-20 11:40 | Inpatient (IN) | payer MEDICARE, MEDICAID ==
[~2019-01-20] VITALS: Ht 180.3 cm; Wt 127.1 kg
[2019-01-20] MEDS ORDERED: NITROGLYCERIN 2% OINT 1 GM *U/D* PKT TOP ONE (12:00)
[2019-01-20] MEDS ORDERED: FUROSEMIDE 40 MG/4 ML VIAL (J1940) IV ONE (12:00)
[2019-01-20 12:11] LABS: VENOUS BASE EXCESS 1.6 (-2.0-2.0); VENOUS HCO3 26.7 MEQ/L (23.0-27.0); VENOUS O2 SATURATION 99.4 % (60.0-80.0); VENOUS PARTIAL PRESSURE CO2 44.8 mmHg (38.0-50.0); VENOUS PARTIAL PRESSURE O2 153.6 mmHg (30.0-50.0); VENOUS PH 7.393 UNITS (7.330-7.430); VENOUS STANDARD HCO3 25.9 MEQ/L; VENOUS TOTAL CO2 28.1 MEQ/L (24.0-28.0)
[2019-01-20 12:25] LABS: BASO % 0.5 % (0.0-1.0); EOS # 0.4 10^3/uL (0.0-0.5); HEMATOCRIT 24.2 % (42.0-52.0); HEMOGLOBIN 7.4 g/dl (13.5-17.5); LYMPH # 0.3 10^3/uL (1.5-5.0); LYMPH % 3.1 % (24.0-44.0); MEAN CORPUSCULAR HGB CONC 30.6 g/dl (32.0-36.5); MEAN CORPUSCULAR VOLUME 81.8 fl (80.0-96.0); MONO # 0.8 10^3/uL (0.0-0.8); MONO % 9.4 % (0.0-5.0); NEUTROPHILS # 7.2 10^3/uL (1.5-8.5); NEUTROPHILS % 81.5 % (36.0-66.0); PLATELET COUNT, AUTOMATED 284 10^3/uL (150-450); RED BLOOD COUNT 2.96 10^6/uL (4.30-6.10); WHITE BLOOD COUNT 8.8 10^3/uL (4.0-10.0)
--- NOTE | 2019-01-20 12:32 | REP ---
PORTABLE CHEST: AP portable view of the chest is performed and compared to a prior study of 11/22/2018. There is cardiomegaly with chronic CHF and interstitial edema. Right pleural effusion is stable. No new parenchymal opacities are identified. Mediastinal silhouette is unchanged. There are multiple sternal wires. There is a loop recorder again seen. IMPRESSION: Chronic CHF and interstitial edema with cardiomegaly. Small right effusion. Findings are quite similar to the prior study of 11/22/2018. Electronically Signed by Denys Vanessa MD 01/20/2019 01:03 P
[2019-01-20 13:00] LABS: ALT/SGPT 18 U/L (12-78); BILIRUBIN,DIRECT 0.2 MG/DL (0.0-0.2); BILIRUBIN,TOTAL 0.5 MG/DL (0.2-1.0); BLOOD UREA NITROGEN 38 MG/DL (7-18); CALCIUM LEVEL 8.4 MG/DL (8.8-10.2); CARBON DIOXIDE LEVEL 28 MEQ/L (21-32); CHLORIDE LEVEL 106 MEQ/L (98-107); CK-MB VALUE MASS 2.7 NG/ML (<3.6); CPK CREATINE PHOSPHOKINASE 66 U/L (39-308); CREATININE FOR GFR 1.49 MG/DL (0.70-1.30); GLOMERULAR FILTRATION RATE 49.6 (>42); GLUCOSE, FASTING 268 MG/DL (70-100); MB/CK RELATIVE INDEX 4.09 (< OR =4); NT-PRO BNP 2037 PG/ML (<125); POTASSIUM SERUM 4.4 MEQ/L (3.5-5.1); SODIUM LEVEL 140 MEQ/L (136-145); THYROXINE (T4) 6.6 UG/DL (4.5-12.0); TOTAL PROTEIN 6.7 GM/DL (6.4-8.2); TROPONIN I < 0.02 NG/ML (< 0.10)
[2019-01-20] MEDS: IPRATROPIUM 0.5MG/ALBUTEROL 2.5MG INH SOL UD 3ML (DUONEB)(J7620) NEB SCH ×5 (14:00→20:13)
[2019-01-20] MEDS ORDERED: MAALOX 30 ML SUSP *UDC PO PRN (14:30)
[2019-01-20] MEDS ORDERED: MOM 30ML SUSPENSION UDC PO PRN (14:30)
[2019-01-20] MEDS ORDERED: ACETAMINOPHEN TAB 650MG DOSE (2X325MG) PO PRN (14:30)
[2019-01-20] MEDS ORDERED: TRES1INJ SC (14:35)
[2019-01-20] MEDS ORDERED: PANT-23 PO (14:35)
[2019-01-20] MEDS ORDERED: GLIP5TAB20 PO (14:35)
[2019-01-20] MEDS ORDERED: INSUHUMDS SC (14:35)
[2019-01-20] MEDS ORDERED: IPRATROPIUM 0.5MG/ALBUTEROL 2.5MG INH SOL UD 3ML (DUONEB)(J7620) NEB PRN ×2 (14:45→15:15)
--- NOTE | 2019-01-20 15:04 | HPEPDOC ---
[facility] Medical History & Physical Date of Admission Jan 20, 2019 Date of Service: Jan 20, 2019 History and Physical DATE OF ADMISSION: 11/22/2018 CHIEF COMPLAINT: SOB HISTORY OF THE PRESENT ILLNESS: This is a 68-year-old male who lives alone, presents to the emergency room with worsening dyspnea for the last couple of days. The patient states that he has been compliant with his medications but has been having difficulty in breathing. The patient is even having dyspnea on minimal exertion. The patient was brought to the ER initially and was put on BiPAP but as per the patient's wishes. He does not want to be on BiPAP. He was given 40 of IV Lasix in the ER and currently has been doing fine on nasal cannula. The patient has a past medical history of grade 2 diastolic failure has been kept on Lasix 80 mg twice a day. He has No fever, chills, or cough. He has had increasing lower extremity edema and says that he even has swelling in his hand when he presses it with his thumb. He has had about a 10-15 pound weight gain for the past 2 weeks. He says that he gets Meals on Wheels, no added salt diet, usually drinks lucy janis but does not keep an eye on fluid restrictions. PAST MEDICAL HISTORY: Coronary artery disease, coronary artery bypass graft (CABG). Hypertension. 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 Obstructive sleep apnea diastolic congestive heart failure. PAST SURGICAL HISTORY: Cholecystectomy, aortic valve replacement (AVR), CABG. FAMILY HISTORY: Colon and prostate CA. Mother with colon cancer. 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 Denies alcohol, drugs or smoking. Lives alone. ALLERGIES: No known drug allergies. HOME MEDICATIONS: - Lasix 80 mg twice a day - glipizide 5 mg daily - isosorbide 30 mg daily - hydralazine 25 mg twice a day - Tresiba 80 units nightly - meclizine 25 mg every 8 hours as needed for dizziness - omeprazole 20 mg daily - acetaminophen 1 gram every 6 hours - Norvasc 10 mg daily - aspirin 81 mg - Coreg 6.25 twice a day - Plavix 75 mg daily - fluoxetine 40 mg daily - gabapentin 100 mg twice a day - Lispro insulin 20 before food - nitroglycerin as needed - potassium 20 mEq twice a day - pravastatin 40 mg daily REVIEW OF SYSTEMS: 12-point system negative aside from positive findings in history of the present illness. PHYSICAL EXAMINATION: Temperature 97.8, pulse 73, respiratory rate 18, blood pressure 129/73, 96% two liters nasal cannula. General: The patient is awake, alert, oriented times three, answering question appropriately. No facial drooping. Face is symmetric. Speech is fluent. Anicteric sclerae. No jaundice, no pallor. Mild jugular venous distention (JVD). No cervical lymphadenopathy, thyromegaly. Lungs are diminished with bibasilar rales at the bases. Also mild inspiratory crackles by basilar Heart: S1, S2 , no murmurs or gallops Abdomen: Soft, obese, nontender, nondistended, positive bowel sounds. Extremities: Chronic venous stasis changes with 3+ edema bilateral lower extremities to the sacrum. LABORATORY DATA: See Below IMAGING STUDIES: Reviewed ASSESSMENT AND PLAN: This is a 68-year-old male who lives alone, presents with worsening shortness of breath for the past few days. The patient is admitted as an inpatient for two midnights for the following issues: 1. Acute exacerbation of diastolic heart failure. The patient looks volume overloaded with JVD, pedal edema and crackles. Was given 40 of IV Lasix and will be put on 40 3 times a day of IV Lasix for now. Input output monitoring and voiding of any extra salt. He'll be put on 2 g sodium diet along with 1.5 L fluid restriction. Continue with the beta blockers. Input output monitoring. Recent echo done in June 2018 shows grade 2 diastolic failure with mild tricuspid and mitral regurgitation. No need of repeat echo. 2. Microcytic hypochromic anemia. Currently, hemoglobin is 7.9. His baseline is around 9. Likely dilutional because of volume overload Patient otherwise denies any hematemesis, bright red blood per rectum, melena, or black, tarry stools. Will obtain iron studies, stool for Hemoccult and reticulocyte count . Monitor for any signs of bleeding. 3. Acute kidney injury. His previous baseline creatinine has been 1.1, and currently it is 1.49. Likely cardiorenal the diabetes and see if it improves. Will check albumin and protein creatinine ratio. 4. History of CVA. He is continued on aspirin and Plavix, Pravachol. We will r eaddress his dual antiplatelets. 5. Aortic valve replacement. Recent echo has been reviewed. 6. Chronic kidney disease stage III with recent history of renal artery stenosis. Monitor patient's renal function, strict intake and output and repeat metabolic panel in the morning. 10. Obstructive sleep apnea, on supplemental oxygen for now. Does not want any BiPAP or CPAP at this time. Deep vein thrombosis (DVT) prophylaxis with subcutaneous heparin PT, OT evaluation Disposition unknown at this time. CODE STATUS DNR/DNI Vital Signs Vital Signs Date Time Temp Pulse Resp B/P (MAP) Pulse Ox O2 Delivery O2 Flow Rate FiO2 01/20/19 12:57 154/68 (96) 01/20/19 12:55 79 98 01/20/19 11:57 97.9 22 Room Air Laboratory Data Labs 24H Laboratory Tests 2 01/20/19 12:03: Immature Granulocyte % (Auto) 0.5, Neutrophils (%) (Auto) 81.5H, Lymphocytes (%) (Auto) 3.1L, Monocytes (%) (Auto) 9.4H, Eosinophils (%) (Auto) 5.0H, Basophils (%) (Auto) 0.5, Neutrophils # (Auto) 7.2, Lymphocytes # (Auto) 0.3L, Monocytes # (Auto) 0.8, Eosinophils # (Auto) 0.4, Basophils # (Auto) 0.0, Nucleated Red Blood Cells % (auto) 0.0, Blood Gas Bicarbonate Standard 25.9, Venous Blood pH 7.393, Venous Blood Partial Pressure CO2 44.8, Venous Blood Partial Pressure O2 153.6H, Venous Blood Total Carbon Dioxide 28.1H, Venous Blood HCO3 26.7, Venous Blood Oxygen Saturation 99.4H, Venous Blood Base Excess 1.6, Anion Gap 6L, Glomerular Filtration Rate 49.6, Lactic Acid Level 2.5*H, Calcium Level 8.4L, Total Bilirubin 0.5, Direct Bilirubin 0.2, Aspartate Amino Transf (AST/SGOT) 15, Alanine Aminotransferase (ALT/SGPT) 18, Alkaline Phosphatase 170H, Total Creatine Kinase 66, Creatine Kinase MB 2.7, Creatine Kinase MB Relative Index 4.09H, Troponin I < 0.02, YU-Zry-P-Type Natriuretic Peptide 2037H, Total Protein 6.7, Albumin 3.0L, Albumin/Globulin Ratio 0.81L, Thyroid Stimulating Hormone (TSH) 4.170H, Thyroxine (T4) 6.6 CBC/BMP Laboratory Tests 01/20/19 12:03 Microbiology Microbiology 01/20/19 Blood Culture, Received Pending 01/20/19 Blood Culture, Received Pending Home Medications Scheduled Amlodipine Besylate (Amlodipine Besylate) 10 Mg Tablet, 10 MG PO DAILY Aspirin (Aspir 81) 81 Mg Tablet.dr, 81 MG PO DAILY Carvedilol (Carvedilol) 6.25 Mg Tablet, 6.25 MG PO BID Clopidogrel Bisulfate (Clopidogrel) 75 Mg Tablet, 75 MG PO DAILY Fluoxetine Hcl (Fluoxetine HCl) 40 Mg Capsule, 40 MG PO DAILY Furosemide (Furosemide) 40 Mg Tablet, 120 MG PO BID TAKES AT 0800/1800 Gabapentin (Gabapentin) 100 Mg Capsule, 200 MG PO BID Glipizide (Glipizide ER) 5 Mg Tab.er.24, 5 MG PO DAILY Hydralazine HCl (Hydralazine HCl) 25 Mg Tablet, 25 MG PO BID Insulin Degludec (Tresiba Flextouch U-200) 200 Unit/1 Ml Insuln.pen, 60 UNIT SC QHS Insulin Human Lispro (Humalog) 100 Unit/1 Ml Vial, 20 UNITS SC BIDWM Isosorbide Mononitrate (Isosorbide Mononitrate ER) 30 Mg Tab.er.24h, 30 MG PO DAILY Pantoprazole Sodium (Pantoprazole Sodium) 40 Mg Tablet.dr, 40 MG PO DAILY Potassium Chloride (Potassium Chloride) 20 Meq Tab.er.prt, 20 MEQ PO BID Pravastatin Sodium (Pravastatin Sodium) 40 Mg Tablet, 40 MG PO QPM Scheduled PRN Meclizine HCl (Meclizine HCl) 25 Mg Tablet, 25 MG PO Q8H PRN for DIZZINESS Nitroglycerin (Nitrostat) 0.4 Mg Tab.subl, 0.4 MG SL Q5MP PRN for CHEST PAIN Allergies Coded Allergies: No Known Allergies (Unverified , 07/19/18) A-FIB/CHADSVASC A-FIB History Current/History of A-Fib/PAF?: No GME ATTESTATION GME ATTESTATION My faculty preceptor for this patient encounter was physically present during the encounter and was fully available. All aspects of the patient interview, examination, medical decision making process, and medical care plan development were reviewed and approved by the faculty preceptor. The faculty preceptor is aware and concurs with the plan as stated in the body of this note and will attest to such by his/her cosignature. ATTENDING NOTE Patient was seen and examined by me this morning with the residents. Agree with the above assessment and plan GME ATTESTATION GME ATTESTATION My faculty preceptor for this patient encounter was physically present during the encounter and was fully available. All aspects of the patient interview, examination, medical decision making process, and medical care plan development were reviewed and approved by the faculty preceptor. The faculty preceptor is aware and concurs with the plan as stated in the body of this note and will attest to such by his/her cosignature. ATTENDING NOTE Patient was seen and examined by me this morning with the residents. Agree with the above assessment and plan HERMINIO HAYES MD Jan 20, 2019 13:57
[2019-01-20] MEDS ORDERED: DEXTROSE 50% 50 ML SYRINGE IV PRN (15:15)
[2019-01-20] MEDS ORDERED: NITROGLYCERIN 0.4 MG SUBL TABLET SL PRN (15:15)
[2019-01-20] MEDS ORDERED: GLUCAGON FOR INJ 1 MG VIAL (J1610) SC PRN (15:15)
[2019-01-20] MEDS ORDERED: GLUCOSE 4 GM CHEW TABLET PO PRN (15:15)
[2019-01-20 15:23] LABS: APPEARANCE, URINE CLEAR (CLEAR); BACTERIA, URINE AUTO NEGATIVE (NEGATIVE); BILIRUBIN, URINE AUTO NEGATIVE (NEGATIVE); BLOOD, URINE BLOOD NEGATIVE (NEGATIVE); COLOR, URINE YELLOW (YELLOW); GLUCOSE, URINE (UA) AUTO NEGATIVE (NEGATIVE); KETONE, URINE AUTO NEGATIVE (NEGATIVE); LEUKOCYTE ESTERASE, URINE AUTO 1+ (NEGATIVE); NITRITE, URINE AUTO NEGATIVE (NEGATIVE); PROTEIN, URINE AUTO NEGATIVE (NEGATIVE); RBC, URINE AUTO 2 /HPF (0-3); SPECIFIC GRAVITY URINE AUTO 1.009 (1.002-1.035); SQUAMOUS EPITHELIAL CELL UR AU 0 /HPF (0-6); UROBILINOGEN, URINE AUTO 0.2 mg/dL (0.0-2.0); WBC, URINE AUTO 8 /HPF (0-3)
[2019-01-20] MEDS: FUROSEMIDE 40 MG/4 ML VIAL (J1940) IV SCH ×2 (16:49→21:38)
[2019-01-20 17:18] VITALS: BP 129/85
[2019-01-20] MEDS: HumaLOG INSULIN (NovoLOG) PER UNIT SC SCH (18:34)
[2019-01-20] MEDS: PRAVASTATIN 20 MG TAB PO SCH (21:39)
[2019-01-20] MEDS: HEPARIN SOD (PORCINE) 5000 UNITS/ML VIAL SC SCH (21:39)
[2019-01-20] MEDS: GABAPENTIN 100 MG CAP PO SCH (21:39)
[2019-01-20] MEDS: LEVEMIR (INSULIN DETEMIR) 1 UNITS/0.01ML SC SCH (21:40)
[2019-01-20] MEDS: CARVedilol 6.25 MG TAB PO SCH (21:40)
[2019-01-20] MEDS: DOCUSATE SODIUM 100 MG CAP PO SCH (21:40)
[2019-01-20] MEDS: **hydrALAZINE HCL** 25 MG TAB PO SCH (21:40)
[2019-01-20 22:00] VITALS: BP 140/61
[2019-01-21 02:00] VITALS: BP 141/62
[2019-01-21] MEDS: IPRATROPIUM 0.5MG/ALBUTEROL 2.5MG INH SOL UD 3ML (DUONEB)(J7620) NEB SCH ×8 (02:00→18:25)
[2019-01-21 06:00] VITALS: BP 140/63
[2019-01-21 06:45] LABS: ALBUMIN 2.9 GM/DL (3.2-5.2); BILIRUBIN,TOTAL 0.4 MG/DL (0.2-1.0); CALCIUM LEVEL 8.3 MG/DL (8.8-10.2); CREATININE FOR GFR 1.42 MG/DL (0.70-1.30); GLOMERULAR FILTRATION RATE 52.5 (>42); POTASSIUM SERUM 3.7 MEQ/L (3.5-5.1); TOTAL PROTEIN 6.5 GM/DL (6.4-8.2)
--- NOTE | 2019-01-21 08:31 | REP ---
Portable chest x-ray: Single view. History: Shortness of breath. Comparison chest x-ray: January 20, 2019. Findings: Monitoring electrodes are seen. Median sternotomy wires and a loop recorder are again noted. Moderate cardiomegaly is observed. There is blunting of the right lateral pleural angle and some fissural thickening in the minor fissure. Vascular congestion and moderate diffuse interstitial edema pattern seen. Impression: CHF pattern with moderate diffuse interstitial edema and small right effusion and moderate cardiomegaly. Electronically Signed by John Jett MD 01/21/2019 08:22 A
[2019-01-21] MEDS: HEPARIN SOD (PORCINE) 5000 UNITS/ML VIAL SC SCH ×2 (08:34→23:06)
[2019-01-21] MEDS: DOCUSATE SODIUM 100 MG CAP PO SCH ×2 (08:34→23:05)
[2019-01-21] MEDS: FUROSEMIDE 40 MG/4 ML VIAL (J1940) IV SCH ×3 (08:34→23:07)
[2019-01-21] MEDS: FLUoxetine 20 MG CAP PO SCH (08:35)
[2019-01-21] MEDS: GABAPENTIN 100 MG CAP PO SCH ×2 (08:35→23:05)
[2019-01-21] MEDS: CLOPIDOGREL 75 MG TAB PO SCH (08:35)
[2019-01-21] MEDS: PANTOPRAZOLE 40MG TAB (PROTONIX) PO SCH (08:35)
[2019-01-21] MEDS: ISOSORBIDE MON. (IMDUR) 30 MG XR TAB PO SCH (08:35)
[2019-01-21] MEDS: CARVedilol 6.25 MG TAB PO SCH ×2 (08:36→23:06)
[2019-01-21] MEDS: ASPIRIN 81 MG ENTERIC TAB PO SCH (08:36)
[2019-01-21] MEDS: **hydrALAZINE HCL** 25 MG TAB PO SCH ×2 (08:36→23:05)
[2019-01-21] MEDS: LEVEMIR (INSULIN DETEMIR) 1 UNITS/0.01ML SC SCH ×2 (08:37→23:06)
[2019-01-21] MEDS: HumaLOG INSULIN (NovoLOG) PER UNIT SC SCH ×3 (08:37→17:08)
[2019-01-21 09:00] LABS: HEMATOCRIT 23.8 % (42.0-52.0); HEMOGLOBIN 7.1 g/dl (13.5-17.5); MEAN CORPUSCULAR HEMOGLOBIN 24.1 pg (27.0-33.0); MEAN CORPUSCULAR HGB CONC 29.8 g/dl (32.0-36.5); MEAN CORPUSCULAR VOLUME 80.7 fl (80.0-96.0); PLATELET COUNT, AUTOMATED 268 10^3/uL (150-450); RED BLOOD COUNT 2.95 10^6/uL (4.30-6.10); WHITE BLOOD COUNT 7.6 10^3/uL (4.0-10.0)
[2019-01-21 10:00] VITALS: BP 135/65
[2019-01-21 11:22] LABS: PERCENT SATURATION 4.8 % (19.7-50.0)
--- NOTE | 2019-01-21 13:02 | ECGEPIP ---
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
--- NOTE | 2019-01-21 13:18 | IPNPDOC ---
Date Seen The patient was seen on 01/21/19. Progress Note SUBJECTIVE: Patient was seen at bedside this morning. He reported significant improvement in his shortness of breath compared to yesterday. He feels he is back to his baseline. At home, he states he is able to go about his daily activities without problem. However, he uses a walker with a chair and frequently has to use it to sit down and rest. He is on 3 L of oxygen at home. He still complains of upper and lower extremity swelling, which she doesn't feel has changed much since yesterday. When asked about his previous strokes. He claims that he still has some residual weakness on his right side, which she doesn't feel is back to his baseline prior to the stroke. Additionally, he states that he has some swallowing difficulties, which was evaluated in the past. He was given exercises to help, however, he doesn't regularly use these exercises. Patient was asked about his management of diabetes, he explains that he is unable to see very well. In order to dose his insulin, he uses "the sounds of clicking in order to estimate "his insulin dose. According to home health he's had a few episodes of hypoglycemia in the past in the low 20s. He denies any chest pain, cough, hemoptysis, nausea, vomiting, abdominal pain, difficulty urinating or moving his bowels. OBJECTIVE PHYSICAL EXAMINATION: VITAL SIGNS: Please see below. GENERAL: Patient is pleasant and cooperative, sitting up comfortably in bed, alert and oriented in no acute distress HEENT: Normocephalic, atraumatic. No scleral icterus. PERRLA. EOMI. no nasal discharge. No tracheal deviation. No obvious swollen lymph nodes CARDIOVASCULAR: Regular rate and rhythm. Normal S1 and S2. 2/6 systolic murmur noted prominently at patients right second intercostal space, midclavicular line. RESPIRATORY: Symmetric chest wall movement noted. Mild crackles heard bilaterally in lower lobes, more prominent in right lower lobe. No rhonchi or wheezes ABDOMINAL:. No obvious lesions noted. Normal bowel sounds in all 4 quadrants. No pain, tenderness, guarding or rigidity EXTREMITIES:. 2/4 pulses noted throughout. 2+ pitting edema noted in both upper and lower extremities. Chronic venous stasis changes noted in lower extremities. NEUROLOGICAL: A&O x3. 5/5 muscle strength noted in all extremities. Patient has significant diabetic neuropathy bilaterally in his lower extremities up to his knees. Spontaneous movements of all extremities. No focal deficits noted PSYCHOLOGICAL: Mood and affect were appropriate LABORATORY DATA, MICROBIOLOGY: Please see below. Imagin01/20/2019 CXR: Chronic CHF and interstitial edema with cardiomegaly. Small right effusion. Findings are quite similar to the prior study of 11/22/2018 01/21/2019 CXR: CHF pattern with moderate diffuse interstitial edema and small right effusion and moderate cardiomegaly DVT prophylaxis ordered?: Continue heparin 5000 units every 12 hours subcutaneously ASSESSMENT AND PLAN: This is a 68-year-old white male with pertinent past medical history of grade 2 diastolic heart failure, coronary artery disease (S/P CABG), hypertension, prosthetic aortic valve replacement, CKD stage III, DM 2, multiple CVAs, presenting initially with shortness of breath likely secondary to acute exacerbation of diastolic heart failure. PROBLEMS: #Acute exacerbation of diastolic heart failure -Patient's dyspnea appears improved -Patient still has 2+ pitting edema bilaterally in upper and lower extremities -Continue furosemide 40 mg 3 times a day -Continue carvedilol -Continue 2 g sodium diet along with 1.5 L fluid restriction -Continue monitoring I/Os #DM2 w/ episodic hypoglycemia -Continue Levemir 10U BID -c/w ISS AC & HS -No hypoglycemic event during admission #Microcytic hypochromic anemia -Hemoglobin noted at 7.1 today from 7.4 yesterday -Patient denies any episodes of bleeding or dark stools -Patient not complaining of any anemic symptoms -Continue monitoring #ARMEN -Creatinine downtrending to 1.42 from 1.49 -Most likely secondary cardiorenal syndrome secondary to diastolic heart failure -Continue to monitor #history of CVA -Continue Aspirin, plavix and pravastatin #CKD Stage III -Continue to monitor renal function (see above) #KAROLINE -Pt currently denying BiPAP or CPAP. On supplemental O2 currently PT OT Evaluation pending DISPOSITION: Pending Clinical Improvement and PT/OT evaluation VS, I&O, 24H, Fishbone Vital Signs/I&O Vital Signs Date Time Temp Pulse Resp B/P (MAP) Pulse Ox O2 Delivery O2 Flow Rate FiO2 01/21/19 08:36 141/65 01/21/19 08:36 80 01/21/19 06:00 98.1 14 99 Nasal Cannula 4.0 01/20/19 15:42 35 I&O- Last 24 Hours up to 6 AM 01/21/19 06:00 Intake Total 900 ml Output Total 1250 ml Balance -350 ml Laboratory Data 24H LABS Laboratory Tests 2 01/20/19 12:03: Immature Granulocyte % (Auto) 0.5, Neutrophils (%) (Auto) 81.5H, Lymphocytes (%) (Auto) 3.1L, Monocytes (%) (Auto) 9.4H, Eosinophils (%) (Auto) 5.0H, Basophils (%) (Auto) 0.5, Neutrophils # (Auto) 7.2, Lymphocytes # (Auto) 0.3L, Monocytes # (Auto) 0.8, Eosinophils # (Auto) 0.4, Basophils # (Auto) 0.0, Reticulocyte # (auto) 62.3, Nucleated Red Blood Cells % (auto) 0.0, Percent Reticulocyte Count 2.1H, Reticulocyte Hemoglobin Equivalent 20.3L, Blood Gas Bicarbonate Standard 25.9, Venous Blood pH 7.393, Venous Blood Partial Pressure CO2 44.8, Venous Blood Partial Pressure O2 153.6H, Venous Blood Total Carbon Dioxide 28.1H, Venous Blood HCO3 26.7, Venous Blood Oxygen Saturation 99.4H, Venous Blood Base Excess 1.6, Anion Gap 6L, Glomerular Filtration Rate 49.6, Lactic Acid Level 2.5*H, Calcium Level 8.4L, Total Bilirubin 0.5, Direct Bilirubin 0.2, Aspartate Amino Transf (AST/SGOT) 15, Alanine Aminotransferase (ALT/SGPT) 18, Alkaline Phosphatase 170H, Total Creatine Kinase 66, Creatine Kinase MB 2.7, Creatine Kinase MB Relative Index 4.09H, Troponin I < 0.02, UT-Wgh-C-Type Natriuretic Peptide 2037H, Total Protein 6.7, Albumin 3.0L, Albumin/Globulin Ratio 0.81L, Thyroid Stimulating Hormone (TSH) 4.170H, Thyroxine (T4) 6.6 01/20/19 13:44: Urine Color YELLOW, Urine Appearance CLEAR, Urine pH 5.0, Urine Specific [place] 1.009, Urine Protein NEGATIVE, Urine Glucose (Auto)(UA) NEGATIVE, Urine Ketones (Auto) NEGATIVE, Urine Blood NEGATIVE, Urine Nitrite NEGATIVE, Urine Bilirubin NEGATIVE, Urine Urobilinogen 0.2, Urine Leukocyte Esterase (Auto) 1+H, Urine WBC (Auto) 8H, Urine RBC (Auto) 2, Urine Hyaline Casts (Auto) 6, Urine Bacteria (Auto) NEGATIVE, Urine Squamous Epithelial Cells 0, Urine Sperm (Auto) 01/20/19 16:27: Lactic Acid Followup at 4 Hours 1.2 01/20/19 21:00: Bedside Glucose (Misc Panel) 214H 01/21/19 05:33: Nucleated Red Blood Cells % (auto) 0.0 01/21/19 05:42: Anion Gap 5L, Glomerular Filtration Rate 52.5, Calcium Level 8.3L, Magnesium Level 2.0, Total Bilirubin 0.4, Aspartate Amino Transf (AST/SGOT) 15, Alanine Aminotransferase (ALT/SGPT) 17, Alkaline Phosphatase 146H, Total Protein 6.5, Albumin 2.9L, Albumin/Globulin Ratio 0.81L CBC/BMP Laboratory Tests 01/20/19 12:03 01/21/19 05:33 01/21/19 05:42 Microbiology Microbiology 01/20/19 Blood Culture, Received Pending 01/20/19 Blood Culture, Received Pending GME ATTESTATION GME ATTESTATION My faculty preceptor for this patient encounter was physically present during the encounter and was fully available. All aspects of the patient interview, examination, medical decision making process, and medical care plan development were reviewed and approved by the faculty preceptor. The faculty preceptor is aware and concurs with the plan as stated in the body of this note and will attest to such by his/her cosignature. ATTENDING NOTE Patient was seen and examined by me this morning with the residents. Agree with the above assessment and plan MIRYAM MIGUEL-3 Jan 21, 2019 09:35 HERMINIO HAYES MD Jan 21, 2019 15:40
[2019-01-21 14:00] VITALS: BP 135/64
[2019-01-21 18:00] VITALS: BP 124/68
[2019-01-21 22:00] VITALS: BP 160/67
[2019-01-21] MEDS: PRAVASTATIN 20 MG TAB PO SCH (23:04)
[2019-01-22] VITALS (11 sets, daily range): BP systolic 126–162; BP diastolic 67–79
[2019-01-22] MEDS: IPRATROPIUM 0.5MG/ALBUTEROL 2.5MG INH SOL UD 3ML (DUONEB)(J7620) NEB SCH ×6 (02:00→19:30)
[2019-01-22] MEDS ORDERED: FUROSEMIDE 40 MG/4 ML VIAL (J1940) IV SCH (07:00)
[2019-01-22 07:57] LABS: HEMATOCRIT 24.4 % (42.0-52.0); HEMOGLOBIN 7.3 g/dl (13.5-17.5); MEAN CORPUSCULAR HEMOGLOBIN 23.9 pg (27.0-33.0); MEAN CORPUSCULAR HGB CONC 29.9 g/dl (32.0-36.5); MEAN CORPUSCULAR VOLUME 79.7 fl (80.0-96.0); PLATELET COUNT, AUTOMATED 267 10^3/uL (150-450); RED BLOOD COUNT 3.06 10^6/uL (4.30-6.10); WHITE BLOOD COUNT 8.8 10^3/uL (4.0-10.0)
[2019-01-22] MEDS: LEVEMIR (INSULIN DETEMIR) 1 UNITS/0.01ML SC SCH ×2 (08:02→22:12)
[2019-01-22] MEDS: ASPIRIN 81 MG ENTERIC TAB PO SCH (08:02)
[2019-01-22] MEDS: PANTOPRAZOLE 40MG TAB (PROTONIX) PO SCH (08:03)
[2019-01-22] MEDS: CLOPIDOGREL 75 MG TAB PO SCH (08:03)
[2019-01-22] MEDS: FLUoxetine 20 MG CAP PO SCH (08:03)
[2019-01-22] MEDS: FUROSEMIDE 40 MG/4 ML VIAL (J1940) IV SCH ×3 (08:03→22:12)
[2019-01-22] MEDS: GABAPENTIN 100 MG CAP PO SCH ×2 (08:03→22:13)
[2019-01-22] MEDS: DOCUSATE SODIUM 100 MG CAP PO SCH ×2 (08:03→22:13)
[2019-01-22] MEDS: **hydrALAZINE HCL** 25 MG TAB PO SCH ×2 (08:07→22:14)
[2019-01-22] MEDS: ISOSORBIDE MON. (IMDUR) 30 MG XR TAB PO SCH (08:07)
[2019-01-22] MEDS: CARVedilol 6.25 MG TAB PO SCH ×2 (08:07→22:15)
[2019-01-22] MEDS: HEPARIN SOD (PORCINE) 5000 UNITS/ML VIAL SC SCH ×2 (08:08→22:20)
[2019-01-22 08:17] LABS: CALCIUM LEVEL 8.7 MG/DL (8.8-10.2); CREATININE FOR GFR 1.27 MG/DL (0.70-1.30); GLOMERULAR FILTRATION RATE 59.7 (>42); POTASSIUM SERUM 3.5 MEQ/L (3.5-5.1)
[2019-01-22] MEDS: HumaLOG INSULIN (NovoLOG) PER UNIT SC SCH ×3 (08:48→17:36)
[2019-01-22] MEDS ORDERED: FLUBLOK(EGG FREE)(QUAD)INFLUENZA VACC 0.5ML SYRINGE (90682)18YRS&OLDER IM ONE (09:00)
--- NOTE | 2019-01-22 10:49 | IPNPDOC ---
Date Seen The patient was seen on 01/22/19. Progress Note SUBJECTIVE: Patient is doing well. He has no complaints. Otherwise patient denies chest pain, shortness breath, nausea, vomiting, fevers, chills. OBJECTIVE PHYSICAL EXAMINATION: VITAL SIGNS: Please see below. GENERAL: Pleasant sitting up in bed awake alert oriented speaking in complete sentences no acute distress. HEENT: Moist mucous membranes no elevation in CVP CARDIOVASCULAR: S1 S2 regular 2/6 systolic murmur noted prominently at patients right second intercostal space, midclavicular line. RESPIRATORY: Symmetric chest wall movement noted. Mild crackles heard bilaterally in lower lobes, more prominent in right lower lobe. (Improving) No rhonchi or wheezes ABDOMINAL: Bowel sounds present abdomen soft and nontender EXTREMITIES: No clubbing cyanosis or edema NEUROLOGICAL: Spontaneously moves all 4 extremities cranial 2 through 12 grossly intact no gross focal deficits appreciated, diabetic neuropathy bilaterally in his lower extremities up to his knees. Essential tremor more prominent on the right hand vs the left PSYCHOLOGICAL: Appropriate LABORATORY DATA, MICROBIOLOGY: Please see below. IMAGING STUDIES: 01/20/2019 CXR: Chronic CHF and interstitial edema with cardiomegaly. Small right effusion. Findings are quite similar to the prior study of 11/22/2018 01/21/2019 CXR: CHF pattern with moderate diffuse interstitial edema and small right effusion and moderate cardiomegaly ASSESSMENT AND PLAN: This is a 68-year-old white male with acute exacerbation of diastolic heart failure. PROBLEMS: Acute exacerbation of diastolic heart failure - dyspnea improved -c/w to have 2+ pitting edema bilaterally in upper and lower extremities -c/w furosemide 40 mg TID and carvedilol -c/w 2 g sodium diet along with 1.5 L fluid restriction -Baseline 3L Oxygen DM2 w/ episodic hypoglycemia -c/w Levemir 10U BID -c/w ISS AC & HS Microcytic hypochromic anemia - denies any episodes of bleeding or dark stools OR any anemic symptoms -1 unit PRBC followed by extra 40mg lasix after PRBC then repeat H/H to check for appropriate response. ARMEN (improving) with CKD Stage III -Most likely secondary cardiorenal syndrome secondary to diastolic heart failure -Continue to monitor History of CVA -c/w Aspirin, plavix and pravastatin KAROLINE -severe pulmonary hypertension documented on Echo 07/20/18 -refuse BiPAP or CPAP -c/w supplemental O2 -continue monitor Bioprosthetic Aortic valve replacement. -Anticoagulation not indicated. PT OT Evaluation -not safe for discharge, need placement. DVT prophylaxis: Heparin DISPOSITION: Continue volume optimization. Possible de-escalation of Lasix in the a.m. Not safe for discharge needs placement. VS, I&O, 24H, Fishbone Vital Signs/I&O Vital Signs Date Time Temp Pulse Resp B/P (MAP) Pulse Ox O2 Delivery O2 Flow Rate FiO2 01/22/19 08:07 156/69 01/22/19 08:07 83 01/22/19 06:00 98.2 20 98 Nasal Cannula 3.0 01/20/19 15:42 35 I&O- Last 24 Hours up to 6 AM 01/22/19 06:00 Intake Total 1830 ml Output Total 916 ml Balance 914 ml Laboratory Data 24H LABS Laboratory Tests 2 01/21/19 11:35: Bedside Glucose (Misc Panel) 200H 01/21/19 16:40: Bedside Glucose (Misc Panel) 171H 01/21/19 21:15: Bedside Glucose (Misc Panel) 198H 01/22/19 05:44: Bedside Glucose (Misc Panel) 116H 01/22/19 07:39: Nucleated Red Blood Cells % (auto) 0.0, Anion Gap 7L, Glomerular Filtration Rate 59.7, Calcium Level 8.7L 01/22/19 08:22: Bedside Glucose (Misc Panel) 148H 01/22/19 10:32: Bedside Glucose (Misc Panel) 161H CBC/BMP Laboratory Tests 01/22/19 07:39 Microbiology Microbiology 01/21/19 Stool Occult Blood (BOBBY) - Final, Complete 01/20/19 Blood Culture - Preliminary, Resulted No growth after 24 hours . All specim... 01/20/19 Blood Culture - Preliminary, Resulted No growth after 24 hours . All specim... GME ATTESTATION GME ATTESTATION My faculty preceptor for this patient encounter was physically present during the encounter and was fully available. All aspects of the patient interview, examination, medical decision making process, and medical care plan development were reviewed and approved by the faculty preceptor. The faculty preceptor is aware and concurs with the plan as stated in the body of this note and will attest to such by his/her cosignature. ATTENDING NOTE Patient was seen and examined by me this morning with the residents. Agree with the above assessment and plan This is an elderly gentleman who has been admitted to the hospital because of diastolic heart failure and volume overload. He has been diuresing well on 40 of 3 times a day, Lasix. He is almost on his baseline and is being evaluated by physical therapy for discharge. The patient has been having a deterioration of his health over the last several weeks and is going to lose home health. The patient would require subacute rehabilitation versus intermediate facility as per PT recommendations. The patient does not want to go to these places and states that he can have 24, supervision with his nephew at home. He is alert, oriented times place and person and can make his own decisions. I have informed the nursing regarding this situation and PT is going to see him again today . As per the nursing staff. The patient cannot be discharged on this until he is cleared by PT. FREDDY DURHAM MD GME ATTESTATION GME ATTESTATION My faculty preceptor for this patient encounter was physically present during e encounter and was fully available. All aspects of the patient interview, examination, medical decision making process, and medical care plan development were reviewed and approved by the faculty preceptor. The faculty preceptor is aware and concurs with the plan as stated in the body of this note and will attest to such by his/her cosignature. ATTENDING NOTE Patient was seen and examined by me this morning with the residents. Agree with the above assessment and plan RAMÓN GOLDBERG DO Jan 22, 2019 10:49 HERMINIO HAYES MD Jan 22, 2019 14:04
[2019-01-22 17:12] LABS: HEMATOCRIT 27.5 % (42.0-52.0); HEMOGLOBIN 8.3 g/dl (13.5-17.5); MEAN CORPUSCULAR HEMOGLOBIN 24.5 pg (27.0-33.0); MEAN CORPUSCULAR HGB CONC 30.2 g/dl (32.0-36.5); MEAN CORPUSCULAR VOLUME 81.1 fl (80.0-96.0); PLATELET COUNT, AUTOMATED 241 10^3/uL (150-450); RED BLOOD COUNT 3.39 10^6/uL (4.30-6.10); WHITE BLOOD COUNT 8.7 10^3/uL (4.0-10.0)
[2019-01-22] MEDS: PRAVASTATIN 20 MG TAB PO SCH (22:13)
[2019-01-23] VITALS (12 sets, daily range): BP systolic 142–154; BP diastolic 68–87
[2019-01-23] MEDS: IPRATROPIUM 0.5MG/ALBUTEROL 2.5MG INH SOL UD 3ML (DUONEB)(J7620) NEB SCH ×4 (01:28→19:46)
[2019-01-23 06:38] LABS: HEMOGLOBIN 7.8 g/dl (13.5-17.5); MEAN CORPUSCULAR HEMOGLOBIN 23.9 pg (27.0-33.0); MEAN CORPUSCULAR VOLUME 79.8 fl (80.0-96.0); PLATELET COUNT, AUTOMATED 249 10^3/uL (150-450); RED BLOOD COUNT 3.26 10^6/uL (4.30-6.10); WHITE BLOOD COUNT 8.1 10^3/uL (4.0-10.0)
[2019-01-23 07:02] LABS: BLOOD UREA NITROGEN 28 MG/DL (7-18); CALCIUM LEVEL 8.2 MG/DL (8.8-10.2); CARBON DIOXIDE LEVEL 32 MEQ/L (21-32); CHLORIDE LEVEL 101 MEQ/L (98-107); CREATININE FOR GFR 1.19 MG/DL (0.70-1.30); GLOMERULAR FILTRATION RATE > 60.0 (>42); GLUCOSE, FASTING 120 MG/DL (70-100); MAGNESIUM LEVEL 1.9 MG/DL (1.8-2.4); POTASSIUM SERUM 3.1 MEQ/L (3.5-5.1); SODIUM LEVEL 139 MEQ/L (136-145)
[2019-01-23] MEDS: HumaLOG INSULIN (NovoLOG) PER UNIT SC SCH ×3 (08:23→17:51)
[2019-01-23] MEDS: LEVEMIR (INSULIN DETEMIR) 1 UNITS/0.01ML SC SCH ×2 (08:23→21:30)
[2019-01-23] MEDS: PANTOPRAZOLE 40MG TAB (PROTONIX) PO SCH (08:24)
[2019-01-23] MEDS: ISOSORBIDE MON. (IMDUR) 30 MG XR TAB PO SCH (08:24)
[2019-01-23] MEDS: GABAPENTIN 100 MG CAP PO SCH ×2 (08:24→20:38)
[2019-01-23] MEDS: **hydrALAZINE HCL** 25 MG TAB PO SCH ×2 (08:24→20:39)
[2019-01-23] MEDS: CLOPIDOGREL 75 MG TAB PO SCH (08:24)
[2019-01-23] MEDS: FLUoxetine 20 MG CAP PO SCH (08:24)
[2019-01-23] MEDS: ASPIRIN 81 MG ENTERIC TAB PO SCH (08:24)
[2019-01-23] MEDS: CARVedilol 6.25 MG TAB PO SCH ×2 (08:25→20:39)
[2019-01-23] MEDS: FUROSEMIDE 40 MG/4 ML VIAL (J1940) IV SCH ×4 (08:25→22:06)
[2019-01-23] MEDS: HEPARIN SOD (PORCINE) 5000 UNITS/ML VIAL SC SCH ×2 (08:25→20:37)
[2019-01-23] MEDS: DOCUSATE SODIUM 100 MG CAP PO SCH ×2 (09:00→20:39)
[2019-01-23] MEDS ORDERED: FLUBLOK(EGG FREE)(QUAD)INFLUENZA VACC 0.5ML SYRINGE (90682)18YRS&OLDER IM ONE (09:00)
[2019-01-23] MEDS ORDERED: metOLazone 5 MG TAB PO ONE (10:30)
[2019-01-23] MEDS ORDERED: POTASSIUM CHLORIDE 10 MEQ SR TABLET PO ONE (11:00)
[2019-01-23] MEDS ORDERED: FLUBLOK(EGG FREE)(QUAD)INFLUENZA VACC 0.5ML SYRINGE (90682)18YRS&OLDER IM PRN (11:45)
[2019-01-23] MEDS ORDERED: FUROSEMIDE 40 MG/4 ML VIAL (J1940) IV ONE (16:30)
--- NOTE | 2019-01-23 18:39 | IPN ---
DATE: 01/23/2019 The patient still complains of dyspnea on exertion, dyspnea at rest despite supplemental oxygen. No chest pain, pressure, tightness. No heme positive stool. Input and output for the past 3 days have been positive balance. Weight is 130.5 kg. PHYSICAL EXAMINATION: VITAL SIGNS: Temperature 97.4, pulse 79, respiratory rate 20, blood pressure 142/68, 98% on 3 liters nasal cannula. GENERAL: Awake, alert, oriented times three with supplemental oxygen at 3 liters. Positive jugular venous distention (JVD). LUNGS: Diminished with fine wheezing. HEART: S1, S2. Sinus rhythm. ABDOMEN: Obese, soft, nontender. EXTREMITIES: 2+ pitting edema. LABORATORY DATA White count 8.1, hemoglobin 7.8, hematocrit 26, platelet count 249. Sodium 139, potassium 3.1, chloride 101, bicarbonate 32, BUN 28, creatinine 1.19, glucose 120. 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 IMPRESSION: 1. Congestive heart failure (CHF) exacerbation, diastolic dysfunction. Fluid restriction, daily weights, strict input and output, net negative balance 1 liter daily goal, Lasix 40 mg intravenous every 6 hours, Zaroxolyn prior to Lasix. Supplement potassium, magnesium as needed for electrolyte deficiencies. 2. Hypertensive heart disease. On isosorbide, Coreg and hydralazine, adjust as needed. 3. Chronic kidney disease, currently at baseline creatinine. Avoid nephrotoxins. Renally dose all medications. 4. Coronary artery disease, coronary artery bypass graft (CABG). On aspirin, Plavix, Coreg, pravastatin. 5. History of CVA. On aspirin, Plavix, pravastatin. 6. Chronic neuropathy. On Neurontin. 7. Type 2 diabetes. On Levemir insulin, sliding scale and consistent carbohydrate diet. 8. Electrolyte abnormalities. Low potassium supplemented. MTDD
[2019-01-23] MEDS: POTASSIUM CHLORIDE 10 MEQ SR TABLET PO SCH (20:38)
[2019-01-23] MEDS: PRAVASTATIN 20 MG TAB PO SCH (20:38)
[2019-01-23 21:58] LABS: CALCIUM LEVEL 8.5 MG/DL (8.8-10.2); CREATININE FOR GFR 1.27 MG/DL (0.70-1.30); GLOMERULAR FILTRATION RATE 59.7 (>42); MAGNESIUM LEVEL 1.9 MG/DL (1.8-2.4); POTASSIUM SERUM 3.2 MEQ/L (3.5-5.1)
[2019-01-24] MEDS: IPRATROPIUM 0.5MG/ALBUTEROL 2.5MG INH SOL UD 3ML (DUONEB)(J7620) NEB SCH ×4 (02:00→19:34)
[2019-01-24 04:00] VITALS: BP 160/85
[2019-01-24] MEDS: FUROSEMIDE 40 MG/4 ML VIAL (J1940) IV SCH (04:20)
[2019-01-24 06:00] VITALS: BP 146/70
[2019-01-24] MEDS: HumaLOG INSULIN (NovoLOG) PER UNIT SC SCH ×3 (07:30→16:58)
[2019-01-24 08:13] LABS: BLOOD UREA NITROGEN 24 MG/DL (7-18); CALCIUM LEVEL 8.6 MG/DL (8.8-10.2); CARBON DIOXIDE LEVEL 31 MEQ/L (21-32); CHLORIDE LEVEL 100 MEQ/L (98-107); GLOMERULAR FILTRATION RATE > 60.0 (>42); GLUCOSE, FASTING 132 MG/DL (70-100); MAGNESIUM LEVEL 1.8 MG/DL (1.8-2.4); SODIUM LEVEL 140 MEQ/L (136-145)
[2019-01-24 08:20] LABS: HEMATOCRIT 28.6 % (42.0-52.0); HEMOGLOBIN 8.6 g/dl (13.5-17.5); MEAN CORPUSCULAR HEMOGLOBIN 24.3 pg (27.0-33.0); MEAN CORPUSCULAR HGB CONC 30.1 g/dl (32.0-36.5); MEAN CORPUSCULAR VOLUME 80.8 fl (80.0-96.0); PLATELET COUNT, AUTOMATED 243 10^3/uL (150-450); RED BLOOD COUNT 3.54 10^6/uL (4.30-6.10); WHITE BLOOD COUNT 7.8 10^3/uL (4.0-10.0)
[2019-01-24] MEDS: PANTOPRAZOLE 40MG TAB (PROTONIX) PO SCH (08:34)
[2019-01-24] MEDS: FLUoxetine 20 MG CAP PO SCH (08:34)
[2019-01-24] MEDS: **hydrALAZINE HCL** 25 MG TAB PO SCH ×2 (08:35→20:11)
[2019-01-24] MEDS: ASPIRIN 81 MG ENTERIC TAB PO SCH (08:35)
[2019-01-24] MEDS: POTASSIUM CHLORIDE 10 MEQ SR TABLET PO SCH ×3 (08:35→20:08)
[2019-01-24] MEDS: ISOSORBIDE MON. (IMDUR) 30 MG XR TAB PO SCH (08:35)
[2019-01-24] MEDS: HEPARIN SOD (PORCINE) 5000 UNITS/ML VIAL SC SCH ×2 (08:36→20:08)
[2019-01-24] MEDS: DOCUSATE SODIUM 100 MG CAP PO SCH ×2 (08:36→20:12)
[2019-01-24] MEDS: GABAPENTIN 100 MG CAP PO SCH ×2 (08:36→20:08)
[2019-01-24] MEDS: CARVedilol 6.25 MG TAB PO SCH ×2 (08:36→20:12)
[2019-01-24] MEDS: CLOPIDOGREL 75 MG TAB PO SCH (08:36)
[2019-01-24] MEDS: LEVEMIR (INSULIN DETEMIR) 1 UNITS/0.01ML SC SCH ×3 (08:37→21:15)
[2019-01-24] MEDS ORDERED: MAG SULF 1GM/100ML (MAG RUN) 1 GM in IV 1 EA IV ONE (09:00)
[2019-01-24] MEDS ORDERED: metOLazone 5 MG TAB PO ONE (11:30)
--- NOTE | 2019-01-24 11:55 | IPNPDOC ---
Date Seen The patient was seen on 01/24/19. Progress Note SUBJECTIVE: Patient is doing well. He has no complaints, his breathing has improved. He would like to go home in the AM if possible for his son will be home for Thanksgiving. Otherwise patient denies chest pain, shortness breath, nausea, vomiting, fevers, chills. OBJECTIVE PHYSICAL EXAMINATION: VITAL SIGNS: Please see below. GENERAL: Pleasant sitting up in bed awake alert oriented speaking in complete sentences no acute distress. HEENT: Moist mucous membranes no elevation in JVD CARDIOVASCULAR: S1 S2 regular 2/6 systolic murmur noted prominently at patients right second intercostal space, midclavicular line. RESPIRATORY: Symmetric chest wall movement noted. Mild crackles heard bilaterally in lower lobes, more prominent in right lower lobe. (Improving) No rhonchi or wheezes ABDOMINAL: Bowel sounds present abdomen soft and nontender EXTREMITIES: No clubbing cyanosis, 2+ pitting edema in the upper and lower extremities bilaterally. NEUROLOGICAL: Spontaneously moves all 4 extremities cranial 2 through 12 grossly intact no gross focal deficits appreciated, diabetic neuropathy bilaterally in his lower extremities up to his knees. Essential tremor more prominent on the right hand vs the left PSYCHOLOGICAL: Appropriate LABORATORY DATA, MICROBIOLOGY: Please see below. IMAGING STUDIES: 01/20/2019 CXR: Chronic CHF and interstitial edema with cardiomegaly. Small right effusion. Findings are quite similar to the prior study of 11/22/2018 01/21/2019 CXR: CHF pattern with moderate diffuse interstitial edema and small right effusion and moderate cardiomegaly ASSESSMENT AND PLAN: This is a 68-year-old white male with acute exacerbation of diastolic heart failure. PROBLEMS: Acute exacerbation of diastolic heart failure - dyspnea improved -c/w to have 2+ pitting edema bilaterally in upper and lower extremities -c/w bumex 2MG q6h and Metolazone 10mgx1 -c/w 2 g sodium diet along with 1.5 L fluid restriction -Baseline 3L Oxygen DM2 w/ episodic hypoglycemia -c/w Levemir 10U BID -c/w ISS AC & HS Microcytic hypochromic anemia - denies any episodes of bleeding or dark stools OR any anemic symptoms -2 unit PRBC ARMEN (improving) with CKD Stage III -Most likely secondary cardiorenal syndrome secondary to diastolic heart failure -Continue to monitor History of CVA -c/w Aspirin, plavix and pravastatin KAROLINE -severe pulmonary hypertension documented on Echo 07/20/18 -refuse BiPAP or CPAP -c/w supplemental O2 -continue monitor Bioprosthetic Aortic valve replacement. -Anticoagulation not indicated. PT OT Evaluation -not safe for discharge DVT prophylaxis: Heparin DISPOSITION: Continue volume optimization. MEDICAL ATTENDING PHYSICIAN ADDENDUM: I have independently interviewed and examined the patient, and agree with the physical findings, assessment, and management plan as documented above by my Resident physician. VS, I&O, 24H, Fishbone Vital Signs/I&O Vital Signs Date Time Temp Pulse Resp B/P (MAP) Pulse Ox O2 Delivery O2 Flow Rate FiO2 01/24/19 08:36 76 146/70 01/24/19 08:00 3.0 01/24/19 06:00 98.1 15 97 Nasal Cannula 01/20/19 15:42 35 I&O- Last 24 Hours up to 6 AM 01/24/19 06:00 Intake Total 1865 ml Output Total 2300 ml Balance -435 ml Laboratory Data 24H LABS Laboratory Tests 2 01/23/19 11:40: Bedside Glucose (Misc Panel) 150H 01/23/19 16:40: Bedside Glucose (Misc Panel) 177H 01/23/19 21:05: Bedside Glucose (Misc Panel) 172H 01/23/19 21:07: Anion Gap 7L, Glomerular Filtration Rate 59.7, Calcium Level 8.5L, Magnesium L evel 1.9 01/24/19 05:36: Nucleated Red Blood Cells % (auto) 0.0, Anion Gap 9, Glomerular Filtration Rate > 60.0, Calcium Level 8.6L, Magnesium Level 1.8 01/24/19 07:46: Bedside Glucose (Misc Panel) 98 CBC/BMP Laboratory Tests 01/23/19 21:07 01/24/19 05:36 Microbiology Microbiology 01/21/19 Stool Occult Blood (BOBBY) - Final, Complete 01/20/19 Blood Culture - Preliminary, Resulted No Growth after 72 hours. All specime... 01/20/19 Blood Culture - Preliminary, Resulted No Growth after 72 hours. All specime... RAMÓN GOLDBERG DO Jan 24, 2019 11:55 DANIA LYN MD Jan 24, 2019 16:26
[2019-01-24] MEDS: BUMETANIDE 1 MG TAB PO SCH ×3 (11:58→23:15)
[2019-01-24 12:32] LABS: POTASSIUM SERUM 3.4 MEQ/L (3.5-5.1)
[2019-01-24] MEDS ORDERED: POTASSIUM CHLORIDE 10 MEQ SR TABLET PO ONE (13:00)
[2019-01-24 13:03] LABS: IONIZED CALCIUM 4.1 MG/DL (4.5-5.3)
[2019-01-24 14:00] VITALS: BP 156/91
--- NOTE | 2019-01-24 17:41 | REP ---
Clinical: Shortness of breath and CHF. Technique: PA and lateral. Comparison: 01/21/2019. Findings: Cardiomegaly with evidence for CHF including pulmonary vascular congestion, interstitial edema, basilar atelectasis, and small right pleural effusion are similar to prior examination. Impression: Findings consistent with CHF and essentially unchanged. Electronically Signed by Merrill Nina MD 01/24/2019 05:32 P
[2019-01-24 19:12] LABS: IONIZED CALCIUM 4.3 MG/DL (4.5-5.3)
[2019-01-24 19:41] LABS: CREATININE FOR GFR 1.29 MG/DL (0.70-1.30); GLOMERULAR FILTRATION RATE 58.6 (>42)
[2019-01-24 19:51] LABS: POTASSIUM SERUM 3.4 MEQ/L (3.5-5.1)
[2019-01-24] MEDS: PRAVASTATIN 20 MG TAB PO SCH (20:08)
[2019-01-24 22:00] VITALS: BP 154/74
[2019-01-25] VITALS (7 sets, daily range): BP systolic 139–172; BP diastolic 69–88
[2019-01-25 01:06] LABS: CREATININE FOR GFR 1.26 MG/DL (0.70-1.30); GLOMERULAR FILTRATION RATE > 60.0 (>42); MAGNESIUM LEVEL 1.7 MG/DL (1.8-2.4); POTASSIUM SERUM 3.8 MEQ/L (3.5-5.1)
[2019-01-25] MEDS: IPRATROPIUM 0.5MG/ALBUTEROL 2.5MG INH SOL UD 3ML (DUONEB)(J7620) NEB SCH ×4 (02:00→19:33)
[2019-01-25] MEDS: BUMETANIDE 1 MG TAB PO SCH ×3 (05:28→17:14)
[2019-01-25 05:49] LABS: IONIZED CALCIUM 4.3 MG/DL (4.5-5.3)
[2019-01-25 06:06] LABS: HEMATOCRIT 27.1 % (42.0-52.0); HEMOGLOBIN 8.2 g/dl (13.5-17.5); MEAN CORPUSCULAR HEMOGLOBIN 24.3 pg (27.0-33.0); MEAN CORPUSCULAR HGB CONC 30.3 g/dl (32.0-36.5); MEAN CORPUSCULAR VOLUME 80.4 fl (80.0-96.0); PLATELET COUNT, AUTOMATED 241 10^3/uL (150-450); RED BLOOD COUNT 3.37 10^6/uL (4.30-6.10); WHITE BLOOD COUNT 6.1 10^3/uL (4.0-10.0)
[2019-01-25 06:19] LABS: CALCIUM LEVEL 8.3 MG/DL (8.8-10.2); CREATININE FOR GFR 1.3 MG/DL (0.70-1.30); GLOMERULAR FILTRATION RATE 58.1 (>42); MAGNESIUM LEVEL 1.8 MG/DL (1.8-2.4); POTASSIUM SERUM 3.5 MEQ/L (3.5-5.1)
[2019-01-25] MEDS: LEVEMIR (INSULIN DETEMIR) 1 UNITS/0.01ML SC SCH ×2 (08:31→21:05)
[2019-01-25] MEDS: HumaLOG INSULIN (NovoLOG) PER UNIT SC SCH ×3 (08:31→17:14)
[2019-01-25] MEDS: HEPARIN SOD (PORCINE) 5000 UNITS/ML VIAL SC SCH ×2 (08:31→21:05)
[2019-01-25] MEDS: ASPIRIN 81 MG ENTERIC TAB PO SCH (10:06)
[2019-01-25] MEDS: POTASSIUM CHLORIDE 10 MEQ SR TABLET PO SCH ×3 (10:07→21:04)
[2019-01-25] MEDS: DOCUSATE SODIUM 100 MG CAP PO SCH ×2 (10:08→21:00)
[2019-01-25] MEDS: PANTOPRAZOLE 40MG TAB (PROTONIX) PO SCH (10:08)
[2019-01-25] MEDS: CLOPIDOGREL 75 MG TAB PO SCH (10:08)
[2019-01-25] MEDS: FLUoxetine 20 MG CAP PO SCH (10:08)
[2019-01-25] MEDS: **hydrALAZINE HCL** 25 MG TAB PO SCH ×2 (10:09→21:03)
[2019-01-25] MEDS: ISOSORBIDE MON. (IMDUR) 30 MG XR TAB PO SCH (10:11)
[2019-01-25] MEDS: GABAPENTIN 100 MG CAP PO SCH ×2 (10:12→21:04)
[2019-01-25] MEDS: CARVedilol 6.25 MG TAB PO SCH ×2 (10:12→21:04)
[2019-01-25] MEDS ORDERED: metOLazone 5 MG TAB PO ONE (11:45)
--- NOTE | 2019-01-25 11:51 | IPNPDOC ---
Date Seen The patient was seen on 01/25/19. Progress Note SUBJECTIVE: Patient is doing well. Patient is in the impression that he is going home. He states that his son is coming home tonight and will like to be home for giving. He continues to reiterate that his nephew is currently at his house and has been living with him for last 2 weeks. He give us his home phone number to call [phone]. We tried to call with no answer. Will try again later today. Also patient did have a tumble this morning where he tripped over the nasal cannula. He landed on his behind but did not hit his head. He denies chest pain, shortness breath, nausea, vomiting, fevers, chills, lightheadedness, dizziness or headaches. OBJECTIVE PHYSICAL EXAMINATION: VITAL SIGNS: Please see below. GENERAL: Pleasant sitting up in bed awake alert oriented speaking in complete sentences no acute distress. HEENT: Moist mucous membranes no elevation in JVD CARDIOVASCULAR: S1 S2 regular 2/6 systolic murmur noted prominently at patients right second intercostal space, midclavicular line. RESPIRATORY: Symmetric chest wall movement noted. Mild crackles heard bilaterally in lower lobes, more prominent in right lower lobe. (Improving) No rhonchi or wheezes ABDOMINAL: Bowel sounds present abdomen soft and nontender EXTREMITIES: No clubbing cyanosis, 2+ pitting edema in the upper and lower extremities bilaterally (slightly improving but still persisting) NEUROLOGICAL: Spontaneously moves all 4 extremities cranial 2 through 12 grossly intact no gross focal deficits appreciated, diabetic neuropathy bilaterally in his lower extremities up to his knees. Essential tremor more prominent on the right hand vs the left PSYCHOLOGICAL: Appropriate LABORATORY DATA, MICROBIOLOGY: Please see below. IMAGING STUDIES: 01/20/2019 CXR: Chronic CHF and interstitial edema with cardiomegaly. Small right effusion. Findings are quite similar to the prior study of 11/22/2018 01/21/2019 CXR: CHF pattern with moderate diffuse interstitial edema and small right effusion and moderate cardiomegaly ASSESSMENT AND PLAN: This is a 68-year-old white male with acute exacerbation of diastolic heart failure. PROBLEMS: Acute exacerbation of diastolic heart failure - dyspnea improved, but still hypervolemic on exam continue with diuresing -c/w to have 2+ pitting edema bilaterally in upper and lower extremities -c/w bumex 2MG q6h and Metolazone 10mgx2 -c/w 2 g sodium diet along with 1.5 L fluid restriction -Baseline 3L Oxygen DM2 w/ episodic hypoglycemia -c/w Levemir 10U BID -c/w ISS AC & HS Microcytic hypochromic anemia -will continue to monitor -denies any episodes of bleeding or dark stools OR any anemic symptoms -Stool occult positive -No documented colonoscopies? will need to question patient about this -s/p 2 unit PRBC ARMEN (improving) with CKD Stage III -Most likely secondary cardiorenal syndrome secondary to diastolic heart failure -Continue to monitor History of CVA -c/w Aspirin, plavix and pravastatin KAROLINE -severe pulmonary hypertension documented on Echo 07/20/18 -refuse BiPAP or CPAP -c/w supplemental O2 -continue monitor Bioprosthetic Aortic valve replacement. -Anticoagulation not indicated. PT OT Evaluation -not safe for discharge DVT prophylaxis: Heparin DISPOSITION: Continue volume optimization. ATTENDING NOTE I have personally evaluated and examined the patient. Discussed with residents and student regarding plan of care and agree with the above assessment and plan. VS, I&O, 24H, Fishbone Vital Signs/I&O Vital Signs Date Time Temp Pulse Resp B/P (MAP) Pulse Ox O2 Delivery O2 Flow Rate FiO2 01/25/19 10:09 156/73 01/25/19 09:23 97.5 86 18 97 Nasal Cannula 3.0 01/20/19 15:42 35 I&O- Last 24 Hours up to 6 AM 01/25/19 06:00 Intake Total 2245 ml Output Total 3125 ml Balance -880 ml Laboratory Data 24H LABS Laboratory Tests 2 01/24/19 11:29: Bedside Glucose (Misc Panel) 196H 01/24/19 11:58: Whole Blood Ionized Calcium 4.1L, Magnesium Level 2.0 01/24/19 16:40: Bedside Glucose (Misc Panel) 230H 01/24/19 19:01: Whole Blood Ionized Calcium 4.3L, Magnesium Level 2.0, Glomerular Filtration Rate 58.6 01/24/19 20:51: Bedside Glucose (Misc Panel) 287H 01/25/19 00:23: Glomerular Filtration Rate > 60.0, Magnesium Level 1.7L 01/25/19 05:33: Glomerular Filtration Rate 58.1, Magnesium Level 1.8, Nucleated Red Blood Cells % (auto) 0.0, Anion Gap 6L, Calcium Level 8.3L, Whole Blood Ionized Calcium 4.3L CBC/BMP Laboratory Tests 01/24/19 11:58 01/24/19 19:01 01/25/19 00:23 01/25/19 05:33 Microbiology Microbiology 01/21/19 Stool Occult Blood (BOBBY) - Final, Complete 01/20/19 Blood Culture - Preliminary, Resulted No Growth after 72 hours. All specime... 01/20/19 Blood Culture - Preliminary, Resulted No Growth after 72 hours. All specime... RAMÓN GOLDBERG DO Jan 25, 2019 11:51 VINEET HARRISON MD Jan 25, 2019 18:30
[2019-01-25] MEDS: PRAVASTATIN 20 MG TAB PO SCH (21:04)
[2019-01-26] MEDS: IPRATROPIUM 0.5MG/ALBUTEROL 2.5MG INH SOL UD 3ML (DUONEB)(J7620) NEB SCH ×2 (00:15→07:08)
[2019-01-26 01:00] VITALS: BP 153/59
[2019-01-26] MEDS: BUMETANIDE 1 MG TAB PO SCH ×2 (01:16→06:00)
[2019-01-26 06:00] VITALS: BP 158/71
[2019-01-26 06:13] LABS: HEMATOCRIT 28.9 % (42.0-52.0); HEMOGLOBIN 8.5 g/dl (13.5-17.5); MEAN CORPUSCULAR HGB CONC 29.4 g/dl (32.0-36.5); MEAN CORPUSCULAR VOLUME 81.6 fl (80.0-96.0); PLATELET COUNT, AUTOMATED 225 10^3/uL (150-450); RED BLOOD COUNT 3.54 10^6/uL (4.30-6.10)
[2019-01-26 06:35] LABS: BLOOD UREA NITROGEN 23 MG/DL (7-18); CALCIUM LEVEL 8.5 MG/DL (8.8-10.2); CARBON DIOXIDE LEVEL 37 MEQ/L (21-32); CHLORIDE LEVEL 97 MEQ/L (98-107); CREATININE FOR GFR 1.24 MG/DL (0.70-1.30); GLOMERULAR FILTRATION RATE > 60.0 (>42); GLUCOSE, FASTING 223 MG/DL (70-100); MAGNESIUM LEVEL 1.7 MG/DL (1.8-2.4); POTASSIUM SERUM 3.9 MEQ/L (3.5-5.1); SODIUM LEVEL 140 MEQ/L (136-145)
[2019-01-26] MEDS: LEVEMIR (INSULIN DETEMIR) 1 UNITS/0.01ML SC SCH (07:57)
[2019-01-26] MEDS: HumaLOG INSULIN (NovoLOG) PER UNIT SC SCH ×2 (07:57→11:57)
[2019-01-26] MEDS: POTASSIUM CHLORIDE 10 MEQ SR TABLET PO SCH (07:58)
[2019-01-26] MEDS: HEPARIN SOD (PORCINE) 5000 UNITS/ML VIAL SC SCH (07:58)
[2019-01-26] MEDS: FLUoxetine 20 MG CAP PO SCH (07:58)
[2019-01-26] MEDS: GABAPENTIN 100 MG CAP PO SCH (07:58)
[2019-01-26] MEDS: ASPIRIN 81 MG ENTERIC TAB PO SCH (07:58)
[2019-01-26] MEDS: CLOPIDOGREL 75 MG TAB PO SCH (07:59)
[2019-01-26] MEDS: **hydrALAZINE HCL** 25 MG TAB PO SCH (07:59)
[2019-01-26] MEDS: PANTOPRAZOLE 40MG TAB (PROTONIX) PO SCH (07:59)
[2019-01-26] MEDS: DOCUSATE SODIUM 100 MG CAP PO SCH (07:59)
[2019-01-26] MEDS: ISOSORBIDE MON. (IMDUR) 30 MG XR TAB PO SCH (07:59)
[2019-01-26] MEDS: CARVedilol 6.25 MG TAB PO SCH (08:00)
[2019-01-26] MEDS ORDERED: MUPIROCIN 2% OINT 22 GM TUBE TOP SCH (09:00)
[2019-01-26] MEDS ORDERED: BUME1TAB3 PO (09:55)
[2019-01-26] MEDS ORDERED: MUPI2OI TOP (09:55)
[2019-01-26] MEDS ORDERED: MAG SULF 1GM/100ML (MAG RUN) 1 GM in IV 1 EA IV ONE (10:00)
[2019-01-26] MEDS ORDERED: INSUDET SC (10:05)
[2019-01-26] MEDS ORDERED: INSUHUMDS SC (10:05)
--- NOTE | 2019-01-26 10:27 | DS.PDOC ---
Discharge Summary General Date of Admission Jan 20, 2019 at 14:29 Date of Discharge 01/26/19 Discharge Summary DISCHARGE DIAGNOSIS: Acute exacerbation of diastolic heart failure SECONDARY DIAGNOSIS: 1. DM2 w/ episodic hypoglycemia 2. Microcytic hypochromic anemia 3. ARMEN (improving) with CKD Stage III 4. History of CVA 5. KAROLINE 6. Bioprosthetic Aortic valve replacement 7. Thrombophlebitis of the left elbow PROCEDURES PERFORMED DURING STAY: None CONSULTANTS: None HOSPITAL COURSE: While the patient was admitted he was hypervolemic and IV diuretics were placed to achieve euvolemic status. He was taking 120 mg of frusemide twice a day and we started him on Bumex 2 mg every 12 hours plus metolazone 10 mg 1 for 2 days. While admitted he did have an episode of hypoglycemia and adjustments were made on his insulin. On discharge Levemir 10 mg twice a day and a before meals sliding scale was advised. He will have to follow up with his primary care provider about adding daily at bedtime coverage once he follow-up to make sure there is no hypoglycemic events overnight. Lastly his hemoglobin and hematocrit levels were monitored he did have a low hemoglobin of 7.1 and was transfused 2 units while admitted. Stool occult was positive for blood. No documented colono scopies as noted in our charts. Recommend that once he follows up with his primary care provider a has a colonoscopy. H&Hs were stable for greater than 3 days after transfusion. . On the day of discharge, his sister was called to confirm there is 24-hour care while the patient is home. She states she understands either her or her nephew will always be there to make sure he doesnt have hypoglycemic episodes or any falls. She is agreeable to watch over him while she is home. And will be here later this afternoon to pick him up. DISCHARGE MEDICATIONS: Please see below. ALLERGIES: Please see below. SUBJECTIVE: Patient is seen and reexamined this morning. Patient denies chest pain, shortness, breath, nausea, vomiting, fevers ,or chills. He has no complaints today for he would like to go home.. OBJECTIVE: PHYSICAL EXAMINATION: VITAL SIGNS: Please see below. GENERAL: Pleasant sitting up in bed awake alert oriented speaking in complete sentences no acute distress. HEENT: Moist mucous membranes no JVD CARDIOVASCULAR: S1 S2 regular 2/6 systolic murmur noted prominently at patients right second intercostal space, midclavicular line. RESPIRATORY: Symmetric chest wall movement noted. Mild crackles heard bilaterally in lower lobes, more prominent in right lower lobe. (Improving) No rhonchi or wheezes ABDOMINAL: Bowel sounds present abdomen soft and nontender EXTREMITIES: No clubbing cyanosis, 2+ pitting edema in the upper and lower extremities bilaterally (slightly improving but still persisting). Left upper extremity: Elbow: Slight induration appreciated at the medial aspect slightly erythematous not entirely warm to touch. Good pulses 2+ in the upper extremity bilaterally NEUROLOGICAL: Spontaneously moves all 4 extremities cranial 2 through 12 grossly intact no gross focal deficits appreciated, diabetic neuropathy bilaterally in his lower extremities up to his knees. Essential tremor more prominent on the right hand vs the left PSYCHOLOGICAL: Appropriate LABORATORY DATA, MICROBIOLOGY: Please see below. IMAGING STUDIES: 01/20/2019 CXR: Chronic CHF and interstitial edema with cardiomegaly. Small right effusion. Findings are quite similar to the prior study of 11/22/2018 01/21/2019 CXR: CHF pattern with moderate diffuse interstitial edema and small right effusion and moderate cardiomegaly DVT prophylaxis ordered: Heparin ASSESSMENT AND PLAN: This is a 68-year-old white male with acute exacerbation of diastolic heart failure. PROBLEMS: Acute exacerbation of diastolic heart failure - dyspnea improved, but still hypervolemic on exam continue with diuresing -c/w to have 2+ pitting edema bilaterally in upper and lower extremities -c/w bumex 2MG q6h and Metolazone 10mgx2 -c/w 2 g sodium diet along with 1.5 L fluid restriction -Baseline 3L Oxygen DM2 w/ episodic hypoglycemia -c/w Levemir 10U BID -c/w ISS AC & HS Continue the daily at bedtime coverage when discharged because of the risk of hypoglycemia. Well have him discuss with primary care provider about sliding scale for QHS at follow up when discussing about DM. Microcytic hypochromic anemia -will continue to monitor -denies any episodes of bleeding or dark stools OR any anemic symptoms -Stool occult positive -No documented colonoscopies, will need to have colonoscopy outpatient. -s/p 2 unit PRBC ARMEN (improving) with CKD Stage III -Most likely secondary cardiorenal syndrome secondary to diastolic heart failure -Continue to monitor History of CVA -c/w Aspirin, plavix and pravastatin KAROLINE -severe pulmonary hypertension documented on Echo 5/21/19 -refuse BiPAP or CPAP -c/w supplemental O2 -continue monitor Bioprosthetic Aortic valve replacement. -Anticoagulation not indicated. Thrombophlebitis -Of the left upper elbow after an IV site infiltrate. - Recommendations include Bactroban ointment 2 times a day for the next 5 days and warm compress DISPOSITION: Discharge home with home health care DISCHARGE CONDITION: Improved and Stable FOLLOW UP: 1. Follow-up with your primary care provider in 7-10 days 2. Have repeat labs checked potassium level while on Bumex at next appointment at primary care's office. 3. Discuss with primary care provider about outpatient colonoscopy for stool occult was positive 4. Apply Bactroban ointment on left elbow and apply warm compress for 15-30 minutes twice a day. 5. Stop furosemide home dose. 6. Adjustments were made on home insulin. Please take Levemir 10 units twice a day and use the Humalog short-acting on a sliding scale which was provided to you. 7. If symptoms return or worsen please call your primary care provider or return to the ER. ACTIVITY: As prior to admission DIET: 2 g sodium diet +1.5 fluid restriction TIME SPENT ON DISCHARGE: 50 minutes Vital Signs/I&Os Vital Signs Date Time Temp Pulse Resp B/P (MAP) Pulse Ox O2 Delivery O2 Flow Rate FiO2 01/26/19 08:00 3.0 01/26/19 06:00 98.2 80 14 158/71 (100) 100 Nasal Cannula 01/20/19 15:42 35 I&O- Last 24 Hours up to 6 AM 01/26/19 06:00 Intake Total 1540 ml Output Total 2300 ml Balance -760 ml Laboratory Data Labs 24H Laboratory Tests 2 01/25/19 11:23: Bedside Glucose (Misc Panel) 204H 01/25/19 16:47: Bedside Glucose (Misc Panel) 210H 01/25/19 20:41: Bedside Glucose (Misc Panel) 239H 01/26/19 05:40: Nucleated Red Blood Cells % (auto) 0.0, Anion Gap 6L, Glomerular Filtration Rate > 60.0, Calcium Level 8.5L, Magnesium Level 1.7L CBC/BMP Laboratory Tests 01/26/19 05:40 FSBS Laboratory Tests Test 01/25/19 11:23 01/25/19 16:47 01/25/19 20:41 Range/Units Bedside Glucose (Misc Panel) 204 210 239 83-110 MG/DL Microbiology Microbiology 01/21/19 Stool Occult Blood (BOBBY) - Final, Complete 01/20/19 Blood Culture - Final, Complete NO GROWTH AFTER 5 DAYS 01/20/19 Blood Culture - Final, Complete NO GROWTH AFTER 5 DAYS Discharge Medications Scheduled Amlodipine Besylate (Amlodipine Besylate) 10 Mg Tablet, 10 MG PO DAILY, (Reported) Aspirin (Aspir 81) 81 Mg Tablet.dr, 81 MG PO DAILY, (Reported) Bumetanide (Bumetanide) 1 Mg Tablet, 2 MG PO Q12H Carvedilol (Carvedilol) 6.25 Mg Tablet, 6.25 MG PO BID, (Reported) Clopidogrel Bisulfate (Clopidogrel) 75 Mg Tablet, 75 MG PO DAILY, (Reported) Fluoxetine Hcl (Fluoxetine HCl) 40 Mg Capsule, 40 MG PO DAILY, (Reported) Gabapentin (Gabapentin) 100 Mg Capsule, 200 MG PO BID, (Reported) Glipizide (Glipizide ER) 5 Mg Tab.er.24, 5 MG PO DAILY, (Reported) Hydralazine HCl (Hydralazine HCl) 25 Mg Tablet, 25 MG PO BID, (Reported) Insulin Detemir (Levemir Flextouch) 100 Unit/1 Ml Insuln.pen, 10 UNIT SC BID Insulin Lispro (Humalog Kwikpen U-100) 100 Unit/1 Ml Insuln.pen, 4 UNITS SC AC Isosorbide Mononitrate (Isosorbide Mononitrate ER) 30 Mg Tab.er.24h, 30 MG PO DAILY, (Reported) Mupirocin (Mupirocin) 22 Gm Oint...g., 1 DOSE TOP BID Pantoprazole Sodium (Pantoprazole Sodium) 40 Mg Tablet.dr, 40 MG PO DAILY, (Reported) Potassium Chloride (Potassium Chloride) 20 Meq Tab.er.prt, 20 MEQ PO BID, (Reported) Pravastatin Sodium (Pravastatin Sodium) 40 Mg Tablet, 40 MG PO QPM, (Reported) Scheduled PRN Meclizine HCl (Meclizine HCl) 25 Mg Tablet, 25 MG PO Q8H PRN for DIZZINESS, (Reported) Nitroglycerin (Nitrostat) 0.4 Mg Tab.subl, 0.4 MG SL Q5MP PRN for CHEST PAIN, (Reported) Allergies Coded Allergies: No Known Allergies (Unverified , 07/19/18) ATTENDING NOTE I have personally evaluated and examined the patient. Discussed with residents and student regarding plan of care and agree with the above assessment and plan. RAMÓN GOLDBERG DO Jan 26, 2019 10:27 VINEET HARRISON MD Jan 26, 2019 13:35
[2019-01-26] MEDS ORDERED: LEVE1INJ5 SC (11:10)
[2019-01-26] MEDS ORDERED: HUMA100I5 SC (11:10)
[2019-01-26] MEDS ORDERED: BUMETANIDE 1 MG TAB PO SCH (21:00)
== END 2019-01-26 14:24 | disposition home or self-care (01) | DRG 291 ==
LOC: M ED 11:40 → EDBD 11:40 → M ED INP 14:29 → M MSPAV 17:08
PROVIDERS: ADMIT Internal Medicine; ATTEND Student in an Organized Health Care Education/Training Program
PROC: 30233N1 Transfusion of Nonautologous Red Blood Cells into Peripheral Vein, Percutaneous Approach (ICD-10-PCS; principal; 2019-01-22)
DX: I13.0 Hypertensive heart and chronic kidney disease with heart failure and stage 1 through stage 4 chronic kidney disease, or unspecified chronic kidney disease (principal); I50.31 Acute diastolic (congestive) heart failure; N17.9 Acute kidney failure, unspecified; N18.3 Chronic kidney disease, stage 3 (moderate); G47.33 Obstructive sleep apnea (adult) (pediatric); Z86.73 Personal history of transient ischemic attack (TIA), and cerebral infarction without residual deficits; D53.9 Nutritional anemia, unspecified; Z95.2 Presence of prosthetic heart valve; E11.649 Type 2 diabetes mellitus with hypoglycemia without coma; I27.20 Pulmonary hypertension, unspecified; I80.8 Phlebitis and thrombophlebitis of other sites; Z79.899 Other long term (current) drug therapy; Z79.82 Long term (current) use of aspirin; Z79.4 Long term (current) use of insulin; I25.10 Atherosclerotic heart disease of native coronary artery without angina pectoris; E78.5 Hyperlipidemia, unspecified; E11.40 Type 2 diabetes mellitus with diabetic neuropathy, unspecified

== ENCOUNTER 2019-03-09 20:03 | Inpatient (IN) | payer MEDICARE, MEDICAID ==
[~2019-03-09] VITALS: Ht 180.3 cm; Wt 108.5 kg
[~2019-03-09 20:03] MED LIST changes: +BUME1TAB3 PO; +LEVE1INJ5 SC; +MUPI2OI TOP; +PANT-23 PO; -VALA1TAB2 PO; +VALA1TAB64 PO
[2019-03-09 20:29] LABS: BASO % 0.2 % (0.0-1.0); EOS # 0.3 10^3/uL (0.0-0.5); EOS % 1.8 % (0.0-3.0); HEMATOCRIT 27.5 % (42.0-52.0); LYMPH % 1.3 % (24.0-44.0); MEAN CORPUSCULAR HEMOGLOBIN 22.6 pg (27.0-33.0); MEAN CORPUSCULAR HGB CONC 29.1 g/dl (32.0-36.5); MEAN CORPUSCULAR VOLUME 77.7 fl (80.0-96.0); MONO # 0.8 10^3/uL (0.0-0.8); MONO % 5.1 % (0.0-5.0); NEUTROPHILS # 13.5 10^3/uL (1.5-8.5); NEUTROPHILS % 90.9 % (36.0-66.0); PLATELET COUNT, AUTOMATED 371 10^3/uL (150-450); RED BLOOD COUNT 3.54 10^6/uL (4.30-6.10); WHITE BLOOD COUNT 14.8 10^3/uL (4.0-10.0)
[2019-03-09 20:44] LABS: LYMPH # 0.2 10^3/uL (1.5-5.0)
[2019-03-09] MEDS ORDERED: ACETAMINOPHEN TAB 650MG DOSE (2X325MG) PO ONE (20:45)
[2019-03-09] MEDS ORDERED: FUROSEMIDE 100 MG/10 ML VIAL (J1940) IV ONE (20:45)
[2019-03-09 20:56] LABS: BLOOD UREA NITROGEN 29 MG/DL (7-18); CALCIUM LEVEL 8.6 MG/DL (8.8-10.2); CARBON DIOXIDE LEVEL 29 MEQ/L (21-32); CHLORIDE LEVEL 102 MEQ/L (98-107); CK-MB VALUE MASS 1.9 NG/ML (<3.6); CPK CREATINE PHOSPHOKINASE 56 U/L (39-308); GLOMERULAR FILTRATION RATE 53.2 (>42); GLUCOSE, FASTING 43 MG/DL (70-100); MB/CK RELATIVE INDEX 3.39 (< OR =4); NT-PRO BNP 5190 PG/ML (<125); SODIUM LEVEL 139 MEQ/L (136-145); TROPONIN I < 0.02 NG/ML (< 0.10)
[2019-03-09] MEDS: HumaLOG INSULIN (NovoLOG) PER UNIT SC SCH (21:00)
[2019-03-09] MEDS ORDERED: cefTRIAXone SOD 1 GM in D5W MINI-BAG PLUS 50 ML IV ONE (21:00)
[2019-03-09] MEDS ORDERED: INSUHUMDS SC (21:03)
[2019-03-09] MEDS ORDERED: TRES100I SC (21:03)
[2019-03-09] MEDS ORDERED: INSUDET SC (21:03)
[2019-03-09] MEDS ORDERED: FURO40TA2 PO (21:03)
[2019-03-09] MEDS ORDERED: MAALOX 30 ML SUSP *UDC PO PRN (22:30)
[2019-03-09] MEDS ORDERED: IPRATROPIUM 0.5MG/ALBUTEROL 2.5MG INH SOL UD 3ML (DUONEB)(J7620) INH PRN (22:30)
[2019-03-09] MEDS ORDERED: NITROGLYCERIN 0.4 MG SUBL TABLET SL PRN (22:30)
[2019-03-09] MEDS ORDERED: MOM 30ML SUSPENSION UDC PO PRN (22:30)
[2019-03-09] MEDS ORDERED: GLUCOSE 4 GM CHEW TABLET PO PRN (22:45)
[2019-03-09] MEDS ORDERED: GLUCAGON FOR INJ 1 MG VIAL (J1610) SC PRN (22:45)
--- NOTE | 2019-03-09 22:49 | HPEPDOC ---
[facility] Medical History & Physical Date of Admission Mar 09, 2019 Date of Service: Mar 09, 2019 Other Provider Sunny Monreal Attending Physician: AZRA CHANCE MD History and Physical CHIEF COMPLAINT: increasing SOB HISTORY OF PRESENT ILLNESS: Gilberto Rosario is a 69-year-old male who presented to the emergency room due to increasing shortness of breath over the past 3-4 days. The patient was recently admitted to the hospital in December 2018 due to CHF exacerbation. He states since discharge from the hospital, he has been having slow worsening of his symptoms. However, he notes over the past few days his symptoms have been much worse. He states he does not notice much worsening of his lower extremity edema, stating that it is always very bad and never seems to go away. He denies any fevers, chills, night sweats, coughing, or wheezing. He has noted one episode of blood in his stool about 1 week ago, but no recurrent episodes. He states he does not typically have bloody stools. He denies any diarrhea, constipation, or history of hemorrhoids. He also reports generalized w eakness and increased difficulty walking around his home. He does use a walker normally but feels weaker than normal while walking, in addition to more short of breath. REVIEW OF SYSTEMS: CONSTITUTIONAL: Endorses gradual increase in weight. Denies fevers, chills, night sweats, fatigue. HEENT: Denies change in vision, change in hearing. CARDIOVASCULAR: Endorses shortness of breath. Denies chest pain, palpitations, lightheadedness. RESPIRATORY: Denies cough, wheezing. GASTROINTESTINAL: Endorses single episode of blood in stool about 1 week ago. Denies nausea, vomiting, abdominal pain, diarrhea. GENITOURINARY: Denies dysuria, urinary frequency, urinary urgency. SKIN: Denies rash, lesions. MUSCULOSKELETAL: Denies joint pain or muscle aches. NEUROLOGICAL: Endorses generalized weakness. Denies headache, dizziness. PSYCHIATRIC: Denies change in mood. PAST MEDICAL HISTORY: 1. Coronary artery disease, coronary artery bypass graft (CABG). 2. Hypertension. 3. 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 4. Dyslipidemia, 5. Prostate cancer, status post radiation, 6. Prostatic aortic valve replacement 7. Chronic kidney disease stage III with renal artery stenosis 8. Type 2 diabetes with neuropathy 9. Obstructive sleep apnea 10. Diastolic congestive heart failure. PAST SURGICAL HISTORY: 1. Cholecystectomy 2. Aortic Valve replacement 3. CABG SOCIAL HISTORY: Lives alone. 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 Denies alcohol use, IV/illicit drug use. FAMILY HISTORY: Mother of colon cancer. ALLERGIES: Please see below. HOME MEDICATIONS: Please see below. PHYSICAL EXAMINATION: VITAL SIGNS: See below GENERAL: Alert, sitting up comfortable in bed. On venturi mask in no apparent distress. HEENT: Normocephalic, atraumatic, PERRLA, EOMI, moist mucous membranes NECK: Supple, trachea midline, no lymphadenopathy, JVD noted at 4-5 cm above the sternal angle CARDIOVASCULAR: Regular rate and rhythm, normal S1 and S2. 2/6 JODI auscultated at the right upper sternal border. RESPIRATORY: Fine rales noted in bilateral lung bases up to the mid lung armenta posteriorly. No wheezing noted. ABDOMEN: Obese, soft, nontender, nondistended, bowel sounds present. EXTREMITIES: 3+ pitting edema noted in bilateral LE up to the sacrum and bilateral UE in the hands. No cyanosis. Capillary refill < 2 seconds SKIN: Embarrass, warm, dry NEUROLOGIC: Alert and oriented 3 to person, place and time. Cranial nerves 2-12 grossly intact. No gross focal deficits appreciated PSYCHIATRIC: Mood and affect appropriate LABORATORY DATA: See below. IMAGING: - CXR: no radiologist report available at this time MICROBIOLOGY: Please see below. ASSESSMENT: 68-year-old white male with pertinent past medical history of grade 2 diastolic heart failure, coronary artery disease (S/P CABG), hypertension, prosthetic aortic valve replacement, CKD stage III, DM 2, multiple CVAs, presenting initially with shortness of breath likely secondary to acute exacerbation of diastolic heart failure. PLAN: #Acute on chronic diastolic heart failure -echocardiogram June 2018 showed grade 2 diastolic dysfunction. repeat echocardiogram -s/p 200mg IV Lasix in ED. Continue diuresis with 80mg IV Lasix q8h -No added salt diet with 2000mL fluid restriction. monitor I/Os, goal 3L diuresis per day. -continue home carvedilol. home lasix on hold while pt receives IV Lasix #Sepsis 2/2 Possibly 2/2 Community acquired pneumonia. SIRS criteria WBC 14.8 and fever at 100.9F, RR 22 in ED -Lactic acid WNL -CXR appears to show interstitial edema, and possible left sided infiltrated -Blood cultures 2 pending, sputum culture. strep pneumo and legionella pending -Pt is fluid overloaded, no IV fluids given, continue diuresis as above. Antibiotic coverage with IV ceftriaxone and IV azithromycin, day #1, de- escalation of antibiotics pending culture results. DuoNeb's PRN, incentive spirometry, acapella #Microcytic anemia -Stable from prior admission, monitor daily -Pt reports episode of blood in stool 1 week ago, no recurrent episodes -Reports last colonoscopy 5 years ago was normal. Denies history of hemorrhoids. -Check stool occult, and iron panel, if H/H remain stable he can f/u outpatient for colonoscopy. #DM2 with hypoglycemia on admission -Hold home BID levemir and humalog meal coverage. -ISS AC&HS with hypoglycemic protocol -peripheral neuropathy, continue gabapentin #Chronic HTN -continue home amlodipine, hydralazine, isosorbide mononitrate, and carvedilol -home lasix on hold while pt receives IV lasix #CKD stage 3 -Cr 1.4 appears to be higher than his baseline of about 1.2 but has not incr eased by 0.3 -expect improvement with diuresis -monitor BMP daily #history of multiple CVAs -Continue Aspirin, Plavix and pravastatin #Generalized weakness - likely 2/2 acute illness and deconditioning - P/OT evaluation when more appropriate clinically DVT prophylaxis: SC heparin DISPOSITION: admitted inpatient to PCU, likely home vs. rehab after more than two midnight's stay Vital Signs Vital Signs Date Time Temp Pulse Resp B/P (MAP) Pulse Ox O2 Delivery O2 Flow Rate FiO2 03/09/19 22:31 81 20 94 Nasal Cannula 4.0 03/09/19 22:30 126/58 (80) 03/09/19 22:01 99.3 35 Laboratory Data Labs 24H Laboratory Tests 2 03/09/19 20:16: Immature Granulocyte % (Auto) 0.7, Neutrophils (%) (Auto) 90.9H, Lymphocytes (%) (Auto) 1.3L, Monocytes (%) (Auto) 5.1H, Eosinophils (%) (Auto) 1.8, Basophils (%) (Auto) 0.2, Neutrophils # (Auto) 13.5H, Lymphocytes # (Auto) 0.2L, Monocytes # (Auto) 0.8, Eosinophils # (Auto) 0.3, Basophils # (Auto) 0.0, Nucleated Red Blood Cells % (auto) 0.0, Anion Gap 8, Glomerular Filtration Rate 53.2, Lactic Acid Level 1.6, Calcium Level 8.6L, Total Creatine Kinase 56, Creatine Kinase MB 1.9, Creatine Kinase MB Relative Index 3.39, Troponin I < 0.02, RG-Las-I-Type Natriuretic Peptide 5190H 03/09/19 20:25: POC pH (Misc Panel) 7.442, POC Base Excess (Misc Panel) 5.0H, POC Saturated Percent O2 (Misc) 98, POC pO2 (Misc Panel) 102.0, POC pCO2 (Misc Panel) 43.2, POC HCO3 (Misc Panel) 29.5H, POC Total CO2 (Misc Panel) 31.0H 03/09/19 20:46: Urine Color YELLOW, Urine Appearance HAZY, Urine pH 5.0, Urine Specific [place] 1.011, Urine Protein 1+H, Urine Glucose (UA) NEGATIVE, Urine Ketones NEGATIVE, Urine Blood NEGATIVE, Urine Nitrite NEGATIVE, Urine Bilirubin NEGATIVE, Urine Urobilinogen 0.2, Urine Leukocyte Esterase NEGATIVE, Urine WBC (Auto) 2, Urine RBC (Auto) 1, Urine Hyaline Casts (Auto) 15, Urine Bacteria (Auto) NEGATIVE, Urine Squamous Epithelial Cells 0, Urine Amorphous Sediment SMALLH, Urine Mucus (Auto) SMALL, Urine Sperm (Auto) CBC/BMP Laboratory Tests 03/09/19 20:16 Microbiology Microbiology 03/09/19 Blood Culture, Received Pending 03/09/19 Respiratory Virus Panel (PCR) (BOBBY) - Final, Complete 03/09/19 Blood Culture, Received Pending Home Medications Scheduled Amlodipine Besylate (Amlodipine Besylate) 10 Mg Tablet, 10 MG PO DAILY Aspirin (Aspir 81) 81 Mg Tablet.dr, 81 MG PO DAILY Carvedilol (Carvedilol) 6.25 Mg Tablet, 6.25 MG PO BID Clopidogrel Bisulfate (Clopidogrel) 75 Mg Tablet, 75 MG PO DAILY Fluoxetine Hcl (Fluoxetine HCl) 40 Mg Capsule, 40 MG PO DAILY Furosemide (Furosemide) 40 Mg Tablet, 40 MG PO TID Gabapentin (Gabapentin) 100 Mg Capsule, 200 MG PO BID Glipizide (Glipizide ER) 5 Mg Tab.er.24, 5 MG PO DAILY Hydralazine HCl (Hydralazine HCl) 25 Mg Tablet, 25 MG PO BID Insulin Degludec (Tresiba) 100 Unit/1 Ml Vial, 60 UNIT SC DAILY Insulin Detemir (Levemir) 100 Unit/1 Ml Vial, 10 UNITS SC BID Insulin Human Lispro (Humalog) 100 Unit/1 Ml Vial, 16 UNITS SC AC Isosorbide Mononitrate (Isosorbide Mononitrate ER) 30 Mg Tab.er.24h, 30 MG PO DAILY Pantoprazole Sodium (Pantoprazole Sodium) 40 Mg Tablet.dr, 40 MG PO DAILY Potassium Chloride (Potassium Chloride) 20 Meq Tab.er.prt, 20 MEQ PO BID Pravastatin Sodium (Pravastatin Sodium) 40 Mg Tablet, 40 MG PO QPM Scheduled PRN Meclizine HCl (Meclizine HCl) 25 Mg Tablet, 25 MG PO Q8H PRN for DIZZINESS Nitroglycerin (Nitrostat) 0.4 Mg Tab.subl, 0.4 MG SL NITRO PRN for CHEST PAIN Allergies Coded Allergies: No Known Allergies (Unverified , 07/19/18) A-FIB/CHADSVASC A-FIB History Current/History of A-Fib/PAF?: No GME ATTESTATION GME ATTESTATION My faculty preceptor for this patient encounter was physically present during the encounter and was fully available. All aspects of the patient interview, examination, medical decision making process, and medical care plan development were reviewed and approved by the faculty preceptor. The faculty preceptor is aware and concurs with the plan as stated in the body of this note and will attest to such by his/her cosignature. ATTENDING NOTE I examined Mr. Rosario at 10:35 PM, reviewed and admitted to Dr. Francis's note and agree with the findings as documented. JAIME MUÑOZ D.O. Mar 09, 2019 22:49 AZRA CHANCE MD Mar 10, 2019 02:40
[2019-03-10] VITALS (18 sets, daily range): BP systolic 134–169; BP diastolic 60–78; O2SAT 95–99
[2019-03-10] MEDS: DEXTROSE 50% 50 ML SYRINGE IV PRN ×2 (00:55→04:37)
[2019-03-10] MEDS: AZITHROMYCIN INJ 500 MG, VIAL MATE ADAPTER 1 EACH in D5W 250 ML IV SCH (01:17)
[2019-03-10] MEDS: PRAVASTATIN 20 MG TAB PO SCH ×2 (01:17→20:50)
[2019-03-10] MEDS: CARVedilol 6.25 MG TAB PO SCH ×3 (01:18→20:54)
[2019-03-10] MEDS: **hydrALAZINE HCL** 25 MG TAB PO SCH ×3 (01:18→20:53)
[2019-03-10] MEDS: POTASSIUM CHLORIDE 10 MEQ SR TABLET PO SCH ×3 (01:18→20:50)
[2019-03-10] MEDS: GABAPENTIN 100 MG CAP PO SCH ×3 (01:19→20:50)
[2019-03-10 05:50] LABS: HEMATOCRIT 24.7 % (42.0-52.0); HEMOGLOBIN 7.2 g/dl (13.5-17.5); MEAN CORPUSCULAR HEMOGLOBIN 22.5 pg (27.0-33.0); MEAN CORPUSCULAR HGB CONC 29.1 g/dl (32.0-36.5); MEAN CORPUSCULAR VOLUME 77.2 fl (80.0-96.0); PLATELET COUNT, AUTOMATED 290 10^3/uL (150-450); WHITE BLOOD COUNT 13.2 10^3/uL (4.0-10.0)
[2019-03-10] MEDS ORDERED: HEPARIN SOD (PORCINE) 5000 UNITS/ML VIAL SC SCH (06:00)
[2019-03-10 06:09] LABS: CALCIUM LEVEL 8.3 MG/DL (8.8-10.2); CREATININE FOR GFR 1.41 MG/DL (0.70-1.30); GLOMERULAR FILTRATION RATE 52.7 (>42); MAGNESIUM LEVEL 1.9 MG/DL (1.8-2.4); POTASSIUM SERUM 3.5 MEQ/L (3.5-5.1)
[2019-03-10 06:13] LABS: PERCENT SATURATION 3.1 % (19.7-50.0)
--- NOTE | 2019-03-10 06:28 | ECGEPIP ---
[facility] - ED Test Date: 2019-03-09 Pat Name: MARIE FLYNN Department: Room: - Gender: Male Marketing Assistant: MARQUEZLUCIO : 1950 Requested By: ROSA King Order Number: [id number] Reading MD: Juan Key Measurements Intervals [place] Rate: 91 P: ND: 0 QRS: -20 QRSD: 83 T: 129 QT: 346 QTc: 428 Interpretive Statements SINUS RHYTHM WITH FIRST DEGREE AV BLOCK WITH OCCASIONAL SUPRAVENTRICULAR PREMATURE COMPLEXES NSTTW ABNORMALITIES BASELINE ARTIFACT AFFECTS INTERPRETATION Electronically Signed on 03-10-2019 6:27:50 EST by Juan Key
[2019-03-10] MEDS: HumaLOG INSULIN (NovoLOG) PER UNIT SC SCH ×4 (07:30→21:00)
[2019-03-10] MEDS ORDERED: FUROSEMIDE 100 MG/10 ML VIAL (J1940) IV SCH (08:00)
[2019-03-10] MEDS ORDERED: POTASSIUM CHLORIDE 10 MEQ SR TABLET PO ONE (08:00)
[2019-03-10] MEDS: ASPIRIN 81 MG ENTERIC TAB PO SCH (09:04)
[2019-03-10] MEDS: amLODIPine 10 MG TAB PO SCH (09:04)
[2019-03-10] MEDS: FLUoxetine 20 MG CAP PO SCH (09:05)
[2019-03-10] MEDS: PANTOPRAZOLE 40MG TAB (PROTONIX) PO SCH (09:05)
[2019-03-10] MEDS: CLOPIDOGREL 75 MG TAB PO SCH (09:06)
[2019-03-10] MEDS: ISOSORBIDE MON. (IMDUR) 30 MG XR TAB PO SCH (09:06)
[2019-03-10] MEDS: cefTRIAXone SOD 1 GM in D5W MINI-BAG PLUS 50 ML IV SCH (09:29)
[2019-03-10 11:22] LABS: FOLATE 6.6 NG/ML (>5.4)
--- NOTE | 2019-03-10 11:28 | REP ---
Portable chest x-ray: Single view. History: Dyspnea. Cough. Comparison study: January 24, 2019. Findings: Moderate cardiomegaly is observed. There is a small right pleural effusion blunting the right lateral pleural angle. Median sternotomy wires and aortic valve prosthesis metallic components are seen. There is marked diffuse interstitial pulmonary edema and vascular calcification is seen. Impression: CHF pattern with marked diffuse interstitial pulmonary edema and vascular calcification. Small right pleural effusion. There is a loop recorder visible. Electronically Signed by John Jett MD 03/10/2019 08:03 A
--- NOTE | 2019-03-10 11:34 | IPNPDOC ---
Text Note Date of Service The patient was seen on 03/10/19. NOTE Subjective: Patient stated that overall he feels better, he continues to have shortness of breath. He stated that he had a fever overnight with chills. Objective: VITAL SIGNS: Please see below. GENERAL APPEARANCE: Morbidly obese male HEENT: Normocephalic, atraumatic. Mucous members moist and pink CARDIOVASCULAR: Regular rate and rhythm. No murmurs, rubs or gallops. Radial p ulses are intact. There is 2+ pitting edema of lower extremity LUNGS: Diminished lung sounds ABDOMEN: Abdomen is soft and nontender. Obese MUSCULOSKELETAL: Range of motion is intact in all 4 extremities NEUROLOGICAL: Cranial nerves II-12 are grossly intact. Speech is not dysarthric Patient 68 years old male with past mental history of diastolic CHF, coronary artery diseases, history of CVA, diabetes type 2, presented to the hospital with increased shortness of breath most likely secondary to acute CHF superimposed with acute blood loss anemia. Acute on chronic diastolic heart failure Echo pending Continue diuresis I's and O's Cardiac tachycardic Sepsis On admission patient had leukocytosis, fever, dyspnea Chest x-ray showed possible left-sided infiltrate I will repeat chest x-ray Blood culture pending Sputum culture pending Patient stated that she doesn't have increased cough and sputum production. Continue ceftriaxone and azithromycin for now Leukocytosis improved Continue inhalers Incentive spirometry Acute blood loss anemia Patient stated that he had a few episodes of bloody stool Stool for occult blood Hemoglobin dropped to 7.2 I will transfuse 2 units of blood due to complicated cardiac history Diabetes mellitus Diabetes diet Blood glucose level under control Insulin sliding scale Hypertension Continue home cardioprotective medications Chronic kidney diseases stage III Continue to monitor Generalized weakness Secondary to aforementioned condition PT/OT VS,Fishbone, I+O VS, Fishbone, I+O Laboratory Tests 03/09/19 20:16 03/10/19 05:28 Vital Signs Date Time Temp Pulse Resp B/P (MAP) Pulse Ox O2 Delivery O2 Flow Rate FiO2 03/10/19 09:04 69 134/70 03/10/19 08:00 5.0 03/10/19 08:00 96.7 16 98 Nasal Cannula 03/09/19 22:01 35 I&O- Last 24 Hours up to 6 AM 03/10/19 06:00 Intake Total 1125 ml Output Total 850 ml Balance 275 ml DROZHZHIN,CHEPE DO Mar 10, 2019 11:34
[2019-03-10 12:43] LABS: CALCIUM LEVEL 8.1 MG/DL (8.8-10.2); CREATININE FOR GFR 1.39 MG/DL (0.70-1.30); GLOMERULAR FILTRATION RATE 53.6 (>42); POTASSIUM SERUM 3.9 MEQ/L (3.5-5.1)
--- NOTE | 2019-03-10 12:44 | REP ---
Portable chest x-ray: Sitting AP view. History: Pneumonia. Comparison study: March 09, 2019. Findings: EKG monitoring electrodes overlie the chest. There is a small right pleural effusion. Moderate cardiac enlargement is seen. The patient is status post aortic valve replacement and median sternotomy. Vascular congestion is observed. The interstitial edema pattern is slightly improved from yesterday's radiograph. No focal infiltrate. Impression: Somewhat improved CHF pattern. Electronically Signed by John Jett MD 03/10/2019 12:36 P
[2019-03-10 13:24] LABS: VENOUS BASE EXCESS 5.8 (-2.0-2.0); VENOUS HCO3 30.2 MEQ/L (23.0-27.0); VENOUS O2 SATURATION 99.2 % (60.0-80.0); VENOUS PARTIAL PRESSURE CO2 43.4 mmHg (38.0-50.0); VENOUS PARTIAL PRESSURE O2 147.9 mmHg (30.0-50.0); VENOUS STANDARD HCO3 29.7 MEQ/L; VENOUS TOTAL CO2 31.5 MEQ/L (24.0-28.0)
--- NOTE | 2019-03-10 23:00 | ECHO ---
DATE OF PROCEDURE: 03/10/2019 REFERRING PHYSICIAN: Rosie Cleveland MD INDICATION: Heart failure, unspecified. HEIGHT: 180 cm WEIGHT: 125 kg 2D MEASUREMENTS: Left atrium: 4.1 cm Aortic root: 2.4 cm Ventricular septum: 1.27 cm Posterior wall: 1.20 cm Left ventricle diastole: 5.2 cm Inferior vena cava: 2.8 cm with marked reduction of respiratory variation. Central venous pressure estimated to be at least 20 mmHg. DOPPLER MEASUREMENTS: Mild aortic stenosis. No aortic regurgitation. Peak aortic velocity: 256 cm/s Peak aortic valve gradient: 26 mmHg Mean aortic valve gradient: 15 mmHg Aortic valve VTI: 56.4 cm LVOT velocity: 92.9 cm/s LVOT VTI: 21.1 cm Moderate mitral regurgitation. No mitral stenosis. Mitral E velocity: 148 cm/s Mitral A velocity: 180 cm/s Mitral deceleration time: 271 ms Mild tricuspid regurgitation. Estimated right ventricle systolic pressure at least 49 mmHg assuming a right atrial pressure of 20 mmHg. No pulmonic regurgitation. MITRAL ANNULAR TISSUE DOPPLER: E prime septal: 3.3 cm/s E prime lateral: 4.7 cm/s DESCRIPTION: Rhythm was sinus. This was a moderately technically difficult echocardiogram. No pericardial effusion. This was a 2D, M-mode, color flow Doppler and pulse wave Doppler examination that included mitral annular tissue Doppler. CONCLUSIONS: 1. Mild-moderate reduction overall left ventricle (LV) systolic function. Left ventricular ejection fraction (LVEF) 45% by visual estimate. Mild concentric left ventricle hypertrophy. Probable akinesis of the mid anteroseptal segment and mid inferoseptal segment. Akinesis of the apical segments. Akinesis of apical cap segment. Probable hypokinesis of the mid anterior segment. Normal regional wall motion and wall thickening elsewhere. No LV apical thrombus. 2. Moderate focal thickening and focal calcific deposits of a three-cuspid aortic valve. Mild aortic stenosis. No aortic regurgitation. 3. Severe mitral annular calcification. No mitral stenosis. Moderate mitral regurgitation. 4. Mild left atrial dilatation. 5. Suggestive of moderate elevation of estimated right ventricle systolic pressure. Mild tricuspid regurgitation. 6. Dilated inferior vena cava with marked reduction of respiratory variation suggestive of elevated central venous pressure of at least 20 mmHg.
[2019-03-11] VITALS (14 sets, daily range): BP systolic 128–170; BP diastolic 73–82; O2SAT 95–98
[2019-03-11] MEDS: FUROSEMIDE 40 MG/4 ML VIAL (J1940) IV SCH ×2 (00:19→13:33)
[2019-03-11] MEDS: AZITHROMYCIN INJ 500 MG, VIAL MATE ADAPTER 1 EACH in D5W 250 ML IV SCH (00:19)
[2019-03-11 05:55] LABS: BASO # 0.1 10^3/uL (0.0-0.2); BASO % 0.6 % (0.0-1.0); EOS # 0.5 10^3/uL (0.0-0.5); EOS % 6.2 % (0.0-3.0); HEMATOCRIT 28.2 % (42.0-52.0); HEMOGLOBIN 8.7 g/dl (13.5-17.5); LYMPH # 0.4 10^3/uL (1.5-5.0); LYMPH % 4.4 % (24.0-44.0); MEAN CORPUSCULAR HGB CONC 30.9 g/dl (32.0-36.5); MEAN CORPUSCULAR VOLUME 77.7 fl (80.0-96.0); MONO # 0.9 10^3/uL (0.0-0.8); MONO % 10.4 % (0.0-5.0); NEUTROPHILS # 6.5 10^3/uL (1.5-8.5); PLATELET COUNT, AUTOMATED 290 10^3/uL (150-450); RED BLOOD COUNT 3.63 10^6/uL (4.30-6.10); WHITE BLOOD COUNT 8.4 10^3/uL (4.0-10.0)
[2019-03-11 06:15] LABS: CALCIUM LEVEL 8.6 MG/DL (8.8-10.2); CREATININE FOR GFR 1.47 MG/DL (0.70-1.30); GLOMERULAR FILTRATION RATE 50.3 (>42); MAGNESIUM LEVEL 2.2 MG/DL (1.8-2.4); POTASSIUM SERUM 4.1 MEQ/L (3.5-5.1)
[2019-03-11] MEDS ORDERED: lisinopriL 10 MG TAB PO SCH (09:00)
[2019-03-11] MEDS: HumaLOG INSULIN (NovoLOG) PER UNIT SC SCH ×4 (09:04→21:00)
[2019-03-11] MEDS: amLODIPine 10 MG TAB PO SCH (09:05)
[2019-03-11] MEDS: CLOPIDOGREL 75 MG TAB PO SCH (09:05)
[2019-03-11] MEDS: FLUoxetine 20 MG CAP PO SCH (09:05)
[2019-03-11] MEDS: PANTOPRAZOLE 40MG TAB (PROTONIX) PO SCH (09:05)
[2019-03-11] MEDS: GABAPENTIN 100 MG CAP PO SCH ×2 (09:05→21:12)
[2019-03-11] MEDS: POTASSIUM CHLORIDE 10 MEQ SR TABLET PO SCH ×2 (09:06→21:12)
[2019-03-11] MEDS: ASPIRIN 81 MG ENTERIC TAB PO SCH (09:06)
[2019-03-11] MEDS: ISOSORBIDE MON. (IMDUR) 30 MG XR TAB PO SCH (09:06)
[2019-03-11] MEDS: CARVedilol 6.25 MG TAB PO SCH ×2 (09:06→21:13)
[2019-03-11] MEDS: **hydrALAZINE HCL** 25 MG TAB PO SCH ×3 (09:06→21:13)
[2019-03-11] MEDS: cefTRIAXone SOD 1 GM in D5W MINI-BAG PLUS 50 ML IV SCH (09:07)
[2019-03-11] MEDS ORDERED: hydrALAZINE INJ 20 MG/ML VIAL IV PRN (12:15)
--- NOTE | 2019-03-11 12:31 | IPNPDOC ---
Text Note Date of Service The patient was seen on 03/11/19. NOTE Subjective: Patient stated that overall he feels better. He had good urine ou tput overnight. No any acute events. Patient was afebrile Objective: VITAL SIGNS: Please see below. GENERAL APPEARANCE: Morbidly obese male HEENT: Normocephalic, atraumatic. Mucous members moist and pink CARDIOVASCULAR: Regular rate and rhythm. No murmurs, rubs or gallops. Radial pulses are intact. There is 2+ pitting edema of lower extremity LUNGS: Diminished lung sounds ABDOMEN: Abdomen is soft and nontender. Obese MUSCULOSKELETAL: Range of motion is intact in all 4 extremities NEUROLOGICAL: Cranial nerves II-12 are grossly intact. Speech is not dysarthric [facility] NAME: MARIE FLYNN : 1950 MEDICAL REC #: [id number] ROOM: [facility] ACCOUNT: [id number] ORDERING DOCTOR: JAIME MUÑOZ D.O. PATIENT STATUS: ADM IN DICTATING DOCTOR: Tk Veras MD [facility] REPORT #: [id number] cc: [~ rep ct ivnm] ECHOCARDIOGRAM-DOPPLER REPORT Printed: [~ rep prt dt last] [~ rep prt tm last] Page 2 of [address] [address] ECHOCARDIOGRAM-DOPPLER REPORT ECHOCARDIOGRAM-DOPPLER REPORT Printed: [~ rep prt dt last] [~ rep prt tm last] Page 1 of 2 DATE OF PROCEDURE: 03/10/2019 REFERRING PHYSICIAN: Jaime Muñoz MD INDICATION: Heart failure, unspecified. HEIGHT: 180 cm WEIGHT: 125 kg 2D MEASUREMENTS: Left atrium: 4.1 cm Aortic root: 2.4 cm Ventricular septum: 1.27 cm Posterior wall: 1.20 cm Left ventricle diastole: 5.2 cm Inferior vena cava: 2.8 cm with marked reduction of respiratory variation. Central venous pressure estimated to be at least 20 mmHg. DOPPLER MEASUREMENTS: Mild aortic stenosis. No aortic regurgitation. Peak aortic velocity: 256 cm/s Peak aortic valve gradient: 26 mmHg Mean aortic valve gradient: 15 mmHg Aortic valve VTI: 56.4 cm LVOT velocity: 92.9 cm/s LVOT VTI: 21.1 cm Moderate mitral regurgitation. No mitral stenosis. Mitral E velocity: 148 cm/s Mitral A velocity: 180 cm/s Mitral deceleration time: 271 ms Mild tricuspid regurgitation. Estimated right ventricle systolic pressure at least 49 mmHg assuming a right atrial pressure of 20 mmHg. No pulmonic regurgitation. MITRAL ANNULAR TISSUE DOPPLER: E prime septal: 3.3 cm/s E prime lateral: 4.7 cm/s DESCRIPTION: Rhythm was sinus. This was a moderately technically difficult echocardiogram. No pericardial effusion. This was a 2D, M-mode, color flow Doppler and pulse wave Doppler examination that included mitral annular tissue Doppler. CONCLUSIONS: 1. Mild-moderate reduction overall left ventricle (LV) systolic function. Left ventricular ejection fraction (LVEF) 45% by visual estimate. Mild concentric left ventricle hypertrophy. Probable akinesis of the mid anteroseptal segment and mid inferoseptal segment. Akinesis of the apical segments. Akinesis of apical cap segment. Probable hypokinesis of the mid anterior segment. Normal regional wall motion and wall thickening elsewhere. No LV apical thrombus. 2. Moderate focal thickening and focal calcific deposits of a three-cuspid aortic valve. Mild aortic stenosis. No aortic regurgitation. 3. Severe mitral annular calcification. No mitral stenosis. Moderate mitral regurgitation. 4. Mild left atrial dilatation. 5. Suggestive of moderate elevation of estimated right ventricle systolic pressure. Mild tricuspid regurgitation. 6. Dilated inferior vena cava with marked reduction of respiratory variation suggestive of elevated central venous pressure of at least 20 mmHg. DD: Tk Veras MD [facility] 03/10/192205 DT: [facility] 03/10/192242 DS: ERIBERTO 03/10/192306 <Electronically signed by Tk Veras MD> 03/10/192306 DS2: [~ rep ct labl] Patient 68 years old male with past mental history of diastolic CHF, coronary artery diseases, history of CVA, diabetes type 2, presented to the hospital with increased shortness of breath most likely secondary to acute CHF superimposed with acute blood loss anemia. Acute on chronic diastolic heart failure Echo showed ejection fraction of 45% Continue diuresis I's and O's Cardiac diet Sepsis Resolved On admission patient had leukocytosis, fever, dyspnea Chest x-ray showed possible left-sided infiltrate Blood culture negative Sputum culture pending I dc ceftriaxone and azithromycin, started levofloxacin Leukocytosis resolved Continue inhalers Incentive spirometry Community acquired pneumonia See above Acute blood loss anemia Patient stated that he had a few episodes of bloody stool Stool for occult blood Hemoglobin dropped to 7.2 on 03/10/19. Patient received 2 units of blood transfusion Appreciate/agree with GI consult Diabetes mellitus Diabetes diet Blood glucose level under control Insulin sliding scale Hypertension Continue home cardioprotective medications I added lisinopril. Patient will benefit from Jeff inhibitors due to diabetes Chronic kidney diseases stage III Continue to monitor Generalized weakness Secondary to aforementioned condition PT/OT VS,Fishbone, I+O VS, Fishbone, I+O Laboratory Tests 03/11/19 05:31 Vital Signs Date Time Temp Pulse Resp B/P (MAP) Pulse Ox O2 Delivery O2 Flow Rate FiO2 03/11/19 10:12 170/82 03/11/19 09:06 78 03/11/19 08:02 3.0 03/11/19 08:00 97.1 18 96 Nasal Cannula 03/09/19 22:01 35 I&O- Last 24 Hours up to 6 AM 03/11/19 05:59 Intake Total 2140 ml Output Total 1150 ml Balance 990 ml CHEPE DAMON DO Mar 11, 2019 12:31
[2019-03-11] MEDS ORDERED: MIRALAX *UNIT DOSE* 17GM PACKET PO PRN (13:00)
[2019-03-11] MEDS ORDERED: ONDANSETRON 4MG/2ML VIAL (J2405) IV PRN (14:00)
[2019-03-11] MEDS: PRAVASTATIN 20 MG TAB PO SCH (21:12)
[2019-03-11] MEDS: lisinopriL 10 MG TAB PO SCH (21:13)
[2019-03-12] VITALS (16 sets, daily range): BP systolic 132–170; BP diastolic 62–82; O2SAT 95–98
[2019-03-12] MEDS: FUROSEMIDE 40 MG/4 ML VIAL (J1940) IV SCH ×2 (00:07→13:15)
[2019-03-12 05:44] LABS: BASO % 0.4 % (0.0-1.0); EOS # 0.5 10^3/uL (0.0-0.5); HEMATOCRIT 29.5 % (42.0-52.0); HEMOGLOBIN 8.5 g/dl (13.5-17.5); LYMPH # 0.3 10^3/uL (1.5-5.0); LYMPH % 2.8 % (24.0-44.0); MEAN CORPUSCULAR HGB CONC 28.8 g/dl (32.0-36.5); MEAN CORPUSCULAR VOLUME 79.7 fl (80.0-96.0); MONO % 10.1 % (0.0-5.0); NEUTROPHILS # 7.6 10^3/uL (1.5-8.5); NEUTROPHILS % 81.2 % (36.0-66.0); PLATELET COUNT, AUTOMATED 308 10^3/uL (150-450); WHITE BLOOD COUNT 9.4 10^3/uL (4.0-10.0)
[2019-03-12] MEDS ORDERED: LevoFLOXacin 500 MG TABLET PO SCH (06:00)
[2019-03-12 06:03] LABS: CALCIUM LEVEL 8.3 MG/DL (8.8-10.2); CREATININE FOR GFR 1.32 MG/DL (0.70-1.30); GLOMERULAR FILTRATION RATE 56.9 (>42); MAGNESIUM LEVEL 2.2 MG/DL (1.8-2.4); POTASSIUM SERUM 3.8 MEQ/L (3.5-5.1)
[2019-03-12] MEDS: CLOPIDOGREL 75 MG TAB PO SCH (10:27)
[2019-03-12] MEDS: HumaLOG INSULIN (NovoLOG) PER UNIT SC SCH ×4 (10:27→21:00)
[2019-03-12] MEDS: amLODIPine 10 MG TAB PO SCH (10:27)
[2019-03-12] MEDS: ASPIRIN 81 MG ENTERIC TAB PO SCH (10:28)
[2019-03-12] MEDS: lisinopriL 10 MG TAB PO SCH (10:28)
[2019-03-12] MEDS: FLUoxetine 20 MG CAP PO SCH (10:28)
[2019-03-12] MEDS: PANTOPRAZOLE 40MG TAB (PROTONIX) PO SCH (10:29)
[2019-03-12] MEDS: ISOSORBIDE MON. (IMDUR) 30 MG XR TAB PO SCH (10:29)
[2019-03-12] MEDS: **hydrALAZINE HCL** 25 MG TAB PO SCH ×3 (10:29→21:13)
[2019-03-12] MEDS: GABAPENTIN 100 MG CAP PO SCH ×2 (10:30→21:12)
[2019-03-12] MEDS: POTASSIUM CHLORIDE 10 MEQ SR TABLET PO SCH ×2 (10:30→21:12)
[2019-03-12] MEDS: CARVedilol 6.25 MG TAB PO SCH ×2 (10:31→21:12)
--- NOTE | 2019-03-12 11:42 | IPNPDOC ---
Text Note Date of Service The patient was seen on 03/12/19. NOTE Subjective: Patient stated that overnight he has a few bowel movements with red blood per rectum. He had good urine output overnight. No any acute events. Patient was afebrile Objective: VITAL SIGNS: Please see below. GENERAL APPEARANCE: Morbidly obese male HEENT: Normocephalic, atraumatic. Mucous members moist and pink CARDIOVASCULAR: Regular rate and rhythm. No murmurs, rubs or gallops. Radial pulses are intact. There is 2+ pitting edema of lower extremity LUNGS: Diminished lung sounds ABDOMEN: Abdomen is soft and nontender. Obese MUSCULOSKELETAL: Range of motion is intact in all 4 extremities NEUROLOGICAL: Cranial nerves II-12 are grossly intact. Speech is not dysarthric Patient 68 years old male with past mental history of diastolic CHF, coronary artery diseases, history of CVA, diabetes type 2, presented to the hospital with increased shortness of breath most likely secondary to acute CHF superimposed with acute blood loss anemia. Patient received treatment with diuresis and antibiotics with positive dynamics. Also patient received blood transfusion with stabilization of hemoglobin. Acute on chronic diastolic heart failure Echo showed ejection fraction of 45% Continue diuresis I's and O's Cardiac diet Sepsis Resolved On admission patient had leukocytosis, fever, dyspnea Chest x-ray negative for acute infiltrate After antibiotic treatment I dc ceftriaxone and azithromycin, dc today levofloxacin Leukocytosis resolved Continue inhalers Incentive spirometry Community acquired pneumonia See above Acute blood loss anemia Patient stated that he had a few episodes of bloody stool Stool for occult blood positive Hemoglobin dropped to 7.2 on 03/10/19. Patient received 2 units of blood transfusion. Hemoglobin is stable Appreciate/agree with GI consult Diabetes mellitus Diabetes diet Blood glucose level under control Insulin sliding scale Hypertension Continue home cardioprotective medications I added lisinopril. Patient will benefit from Jeff inhibitors due to diabetes Chronic kidney diseases stage III Continue to monitor Generalized weakness Secondary to aforementioned condition PT/OT VS,Fishbone, I+O VS, Fishbone, I+O Laboratory Tests 03/12/19 05:29 Vital Signs Date Time Temp Pulse Resp B/P (MAP) Pulse Ox O2 Delivery O2 Flow Rate FiO2 03/12/19 10:31 81 170/62 03/12/19 08:00 97.3 18 96 Nasal Cannula 3.0 03/09/19 22:01 35 I&O- Last 24 Hours up to 6 AM 03/12/19 06:00 Intake Total 1285 ml Output Total 1880 ml Balance -595 ml CHEPE DAMON DO Mar 12, 2019 11:42
--- NOTE | 2019-03-12 14:41 | CR ---
DATE OF CONSULTATION: 03/12/2019 REFERRING PHYSICIAN: Dr. Breaux INDICATION: Congestive heart failure (CHF) and gastrointestinal bleeding. HISTORY OF PRESENT ILLNESS: Mr. Rosario is previously unknown to me. He is a 69-year-old man who has multitude of medical problems. From cardiac perspective, he carries a diagnosis of coronary artery disease with history of coronary artery bypass grafting and aortic valve replacement in 2016 and has been followed by cardiology, Dr. Gomez in [place]. The patient tells me that he does not see him very often, typically would not be seen more than once a year. His principal care is provided by Dr. Sunny Monreal, who is his primary care physician in [place]. The patient presented to [facility] this time because of shortness of breath and was found to be in congestive heart failure. He also had rectal bleeding and required transfusions. I am being asked by Dr. Breaux to assist in management of his congestive heart failure. The patient tells me that he has been short of breath for a long period of time. He had prior hospitalization for congestive heart failure in this facility. He unfortunately does not weigh himself at home and does not follow any fluid or sodium restrictions. He cannot tell me how he responds to administration of diuretics, but he complains that they make him very thirsty and consequently he would drink a very large amount of typically water every day. He denies any recent anginal symptoms. There has not been any gume paroxysmal nocturnal dyspnea. He cannot quite state how long he has had peripheral edema and he does not know whether he did or did not gain any weight. PAST MEDICAL HISTORY: 1. Coronary artery disease. 2. History of coronary artery bypass graft (CABG) in 2016. He does not believe that he had any cardiac interventions since, we will request records from [facility]. 3. History of aortic valve replacement with bioprosthesis in 2016, again requesting records. 4. Resistant hypertension during his prior hospitalization in 2019 there was a question of right renal artery stenosis. From the available records it is not clear to me whether he did do or did not have any intervention to right renal artery, but I did not find any convincing evidence that he did. 5. History of CVA on several occasions. Initial presentation was in 2014 that led to mild right-sided hemiparesis. He had another event in 2019 that was felt to be related to deep pontine stroke and left him with some difficulty swallowing. For the most part, he recovered. 6. History of prostate cancer with treated with radiation, it is the patient's understanding that he is cured. 7. Chronic renal insufficiency stage III. 8. Obstructive sleep apnea. 9. Type 2 diabetes with severe peripheral neuropathy. 10. History of carotid artery disease with known occluded right carotid internal artery. PAST SURGICAL HISTORY: As above, coronary artery bypass graft, aortic valve replacement and cholecystectomy. SOCIAL HISTORY: The patient never smoked. He does not drink alcohol. He is and lives on his own. His closest relative is his sister who lives nearby. He has two children but he has very minimal contact with them. He is DO NOT RESUSCITATE, DO NOT INTUBATE. FAMILY HISTORY: Both parents of cancer; father of prostate cancer and mother of colon cancer. He has a paternal uncle who of coronary artery disease at an early age. REVIEW OF SYSTEMS: He denies any recent fever, chills, nausea, vomiting or diarrhea. He does admit that he gets short of breath even at his baseline but as recently as 3 or 4 months ago he was able to work in his garden and climbing one flight of stairs apparently would not represent a big problem. Denies any anginal symptoms. He does admit that he has no feeling in his lower extremities. PHYSICAL EXAMINATION: Mr. Rosario is a pleasant 69-year-old man who appears to be in no acute distress sitting by his progressive care unit (PCU) bed in a chair. He is alert, oriented, and appropriate. Last set of vital signs: Blood pressure 132/73, heart rate has been in 70s and 80s, sinus rhythm. He is afebrile. Saturation is 97% on 3 liters of oxygen by nasal cannula. His weight is recorded as 127.6 kg, which is similar to admission weight. His fluid balance yesterday was recorded as negative 300, has already made over 1 liter of urine today. His JVP is extremely high, at least 10 cm above clavicle. I do not appreciate any carotid bruit, even though it is difficult for him to cooperate with holding his breath. Lungs are reasonably clear. No wheezing. He has fine crackles over lower bases bilaterally. Slightly diminished breath sounds. Heart exam reveals regular rhythm. There is a murmur consistent with aortic stenosis, about 2/6. The second component is clearly audible. I do not appreciate any rub or gallop. I do not appreciate any obvious murmur at the apex but he is an obese man. Consequently, there is some muffling of his heart sounds. Abdomen is very protuberant, soft, I do not appreciate convincing shifting dullness, but there is very prominently indurated edema of lower extremities reaching to his abdomen. I cannot palpate his peripheral pulses, but it could be due to the degree of edema. He has no sensation preserved below his knees. LABORATORY: Basic metabolic panel as of today: Sodium 139, potassium 3.8, BUN 32, creatinine 1.3 and glucose 153. CBC: Hemoglobin 8.5, hematocrit 29.5, platelet count 398, WBC count 9.4. Urinalysis is positive 1+ protein, 3+ blood. He had an electrocardiogram that revealed sinus rhythm with first-degree AV block, probable septal myocardial infarction and nonspecific repolarization abnormalities, and he had echocardiogram on 03/10/[address] Veras revealing estimated ejection fraction around 45% with apical wall motion abnormality, moderate mitral insufficiency, normally functioning prosthesis in aortic position with possibly mild stenosis, elevated CVP and PAP least 50. His chest x-ray is consistent with congestive heart failure and cardiomegaly. ASSESSMENT/PLAN: Mr. Rosario is a 69-year-old man who has multitude of medical problems. 1. He presented with GI bleed but he is principally found in florid congestive heart failure with anasarca. He certainly has, in my estimate, at least 20 pounds of excess weight that will need to be eliminated. Consequently, I am going to increase the dose of diuretics. I do not want to be overly aggressive because he has underlying renal dysfunction and potentially also right renal artery stenosis but on the other hand, I am afraid that the current dose is not accomplishing sufficient diuresis. His blood pressure was initially very high but I do expect that it will come down with diuretics. I am going to cut down on this dose of WANDA inhibitors because I am afraid that there will be a progressive decline of renal function. As far as the vasodilators is concerned, he is on combination of amlodipine and hydralazine, which are very similar medications as far the mechanism of action is concerned. I again will leave the medications unchanged, but as the volume will come down, I think it is likely that we will have to cut back. I do foresee that he will stay in the hospital for a long period of time before he becomes euvolemic. 2. Coronary artery disease. Fortunately, he does not have any ischemic symptoms. I am going to request records from [facility] to get details of his coronary anatomy. We will see whether some additional testing may need to be done in this regard but if so, it would be on an outpatient basis. 3. Carotid artery disease with history of CVA. I assume that it was felt that the stroke was related to carotid artery stenosis and occlusion on the right side. There is no documented history of arrhythmias, but he will be monitored on telemetry. 4. Type 2 diabetes. Management as per primary team. 5. Hyperlipidemia. Considering the extent of his vascular disease, he is only on pravastatin, which is a low intensity statin and consequently I am going to replace it with more aggressive atorvastatin, which will provide better vascular protection. 6. Gastrointestinal bleeding. Further management as per primary team. I will take the liberty and discontinue Plavix as he is actively bleeding. We will continue aspirin. I will follow the patient with you. MARY
[2019-03-12 15:07] LABS: BODY FLUID CULTURE Not indicated. (.); LEGIONELLA ANTIGEN URINE Negative (Negative); ORGANISM ID Not indicated. (.); SPECIMEN SOURCE Urine (.); URINE STREP PNEUMONIAE ANTIGEN Negative (Negative)
[2019-03-12] MEDS: ACETAMINOPHEN TAB 650MG DOSE (2X325MG) PO PRN (17:01)
[2019-03-12] MEDS: ATORVASTATIN 20 MG TAB PO SCH (21:12)
[2019-03-12] MEDS: lisinopriL 5 MG TAB PO SCH (21:13)
[2019-03-13] VITALS (19 sets, daily range): BP systolic 139–159; BP diastolic 64–93; O2SAT 91–98
[2019-03-13] MEDS: FUROSEMIDE 100 MG/10 ML VIAL (J1940) IV SCH ×2 (00:08→13:40)
[2019-03-13 05:29] LABS: BASO % 0.5 % (0.0-1.0); EOS # 0.5 10^3/uL (0.0-0.5); EOS % 6.6 % (0.0-3.0); HEMATOCRIT 28.1 % (42.0-52.0); HEMOGLOBIN 8.5 g/dl (13.5-17.5); LYMPH # 0.3 10^3/uL (1.5-5.0); LYMPH % 4.5 % (24.0-44.0); MEAN CORPUSCULAR HGB CONC 30.2 g/dl (32.0-36.5); MEAN CORPUSCULAR VOLUME 79.4 fl (80.0-96.0); MONO # 0.8 10^3/uL (0.0-0.8); MONO % 10.3 % (0.0-5.0); NEUTROPHILS # 5.9 10^3/uL (1.5-8.5); NEUTROPHILS % 77.8 % (36.0-66.0); PLATELET COUNT, AUTOMATED 292 10^3/uL (150-450); RED BLOOD COUNT 3.54 10^6/uL (4.30-6.10); WHITE BLOOD COUNT 7.6 10^3/uL (4.0-10.0)
[2019-03-13 05:46] LABS: CALCIUM LEVEL 8.1 MG/DL (8.8-10.2); CREATININE FOR GFR 1.35 MG/DL (0.70-1.30); GLOMERULAR FILTRATION RATE 55.5 (>42); MAGNESIUM LEVEL 2.2 MG/DL (1.8-2.4); POTASSIUM SERUM 4.3 MEQ/L (3.5-5.1)
[2019-03-13] MEDS: amLODIPine 10 MG TAB PO SCH (10:28)
[2019-03-13] MEDS: PANTOPRAZOLE 40MG TAB (PROTONIX) PO SCH (10:28)
[2019-03-13] MEDS: POTASSIUM CHLORIDE 10 MEQ SR TABLET PO SCH ×2 (10:28→20:34)
[2019-03-13] MEDS: **hydrALAZINE HCL** 25 MG TAB PO SCH (10:28)
[2019-03-13] MEDS: FLUoxetine 20 MG CAP PO SCH (10:28)
[2019-03-13] MEDS: ASPIRIN 81 MG ENTERIC TAB PO SCH (10:29)
[2019-03-13] MEDS: CARVedilol 6.25 MG TAB PO SCH ×2 (10:29→20:34)
[2019-03-13] MEDS: GABAPENTIN 100 MG CAP PO SCH ×2 (10:29→20:33)
[2019-03-13] MEDS: ISOSORBIDE MON. (IMDUR) 30 MG XR TAB PO SCH (10:29)
[2019-03-13] MEDS: HumaLOG INSULIN (NovoLOG) PER UNIT SC SCH ×4 (10:46→20:36)
--- NOTE | 2019-03-13 12:31 | IPN ---
DATE: 03/13/2019 Mr. Rosario feels about the same as he did yesterday. Still gets short of breath with minimal activity, even though at rest he feels comfortable. Denies any anginal symptoms. PHYSICAL EXAMINATION: Vital signs: Blood pressure 145/70 and has been similar or higher, heart rate in 60s and 70s. He is afebrile. Saturation 98% on 2 liters. Telemetry monitoring revealed occasional runs of nonsustained VT, very brief, usually triplet or four beats in a row. His fluid balance yesterday was recorded as negative 500 and he reportedly made only 1200 mL of urine, but unfortunately he has had a great deal incontinent so consequently the measurements are not quite reliable. Weight was recorded this morning as 129.5 kg, which is actually up since yesterday. Otherwise on physical examination, he is alert, oriented and appropriate. His jugular venous pressure is still very high. Lungs are reasonably clear though I do not appreciate any wheezing or crackles. Heart exam reveals regular rhythm. There is a S4 but I do not appreciate S3 per se. No distinct murmur. Abdomen is obese and soft. Extremities have 3+ indurated edema to above his knees. LABORATORY: Sodium 143, potassium 4.3, BUN 30, creatinine 1.4 for GFR 55 and glucose 184. CBC showed WBC count 7.6, hemoglobin 8.5, hematocrit 28 and platelet count 292,000 ASSESSMENT/PLAN: Mr. Rosario is a 69-year-old man who does have history of coronary artery bypass graft (CABG) in 2017 (MORAN to LAD and SVG to RCA), together with aortic valve replacement with bioprosthesis (#26 3 mm Magna Ease valve). He presented with acutely exacerbated congestive heart failure of a diastolic nature even though the ejection fraction is estimated around 45%. There was simultaneous gastrointestinal bleeding and he was quite anemic and still is quite anemic. The principal goal at this point is to accomplish better diuresis. I increased the dose of furosemide yesterday but it is not quite clear to me how adequate the response was. Unfortunately, due to his incontinence, the measurements are limited and the accuracy of the scale certainly is far from optimal too. Nevertheless, I think that I am going to add small dose spironolactone to his regimen. We will see whether we will accomplish any better results and if not then we will have to increase the dose of furosemide further. I do believe that the hypertension will improve with increased diuresis, but I am going to increase the dose of hydralazine in the interim hoping for some beneficial effect on the blood pressure.
--- NOTE | 2019-03-13 13:13 | IPNPDOC ---
Text Note Date of Service The patient was seen on 03/13/19. NOTE Subjective: Patient stated that overnight he had 1 bowel movement with no blood. He had fair urine output overnight. No any acute events. Patient was afebrile Objective: VITAL SIGNS: Please see below. GENERAL APPEARANCE: Morbidly obese male HEENT: Normocephalic, atraumatic. Mucous members moist and pink CARDIOVASCULAR: Regular rate and rhythm. No murmurs, rubs or gallops. Radial pulses are intact. There is 2+ pitting edema of lower extremity LUNGS: Diminished lung sounds ABDOMEN: Abdomen is soft and nontender. Obese MUSCULOSKELETAL: Range of motion is intact in all 4 extremities NEUROLOGICAL: Cranial nerves II-12 are grossly intact. Speech is not dysarthric Patient 68 years old male with past mental history of diastolic CHF, coronary artery diseases, history of CVA, diabetes type 2, presented to the hospital with increased shortness of breath most likely secondary to acute CHF superimposed with acute blood loss anemia. Patient received treatment with diuresis and antibiotics with positive dynamics. Also patient received blood transfusion with stabilization of hemoglobin. GI team recommended to optimize his fluid balance and after that they will proceed with colonoscopy. Card Placer team recommended to intensify diuresis. Acute on chronic diastolic heart failure Echo showed ejection fraction of 45% Continue diuresis I's and O's Cardiac diet Sepsis Resolved On admission patient had leukocytosis, fever, dyspnea Chest x-ray negative for acute infiltrate After antibiotic treatment I dc ceftriaxone and azithromycin, dc levofloxacin Leukocytosis resolved Continue inhalers Incentive spirometry Community acquired pneumonia See above Acute blood loss anemia Patient stated that he had a few episodes of bloody stool Stool for occult blood positive Hemoglobin dropped to 7.2 on 03/10/19. Patient received 2 units of blood transfusion. Hemoglobin is stable Diabetes mellitus Diabetes diet Blood glucose level under control Insulin sliding scale Hypertension Continue home cardioprotective medications I added lisinopril. Patient will benefit from Jeff inhibitors due to diabetes Chronic kidney diseases stage III Continue to monitor Generalized weakness Secondary to aforementioned condition PT/OT VS,Fishbone, I+O VS, Fishbone, I+O Laboratory Tests 03/13/19 05:07 Vital Signs Date Time Temp Pulse Resp B/P (MAP) Pulse Ox O2 Delivery O2 Flow Rate FiO2 03/13/19 12:00 97.6 76 20 148/68 (94) 99 Nasal Cannula 2.0 03/09/19 22:01 35 I&O- Last 24 Hours up to 6 AM 03/13/19 06:00 Intake Total 600 ml Output Total 600 ml Balance 0 ml CHEPE DAMON DO Mar 13, 2019 13:13
[2019-03-13] MEDS: SPIRONOLACTONE 12.5MG PER 1/2 TABLET PO SCH (13:41)
[2019-03-13] MEDS: **hydrALAZINE** 50 MG TAB PO SCH ×2 (17:13→20:33)
[2019-03-13] MEDS: ATORVASTATIN 20 MG TAB PO SCH (20:33)
[2019-03-13] MEDS: ACETAMINOPHEN TAB 650MG DOSE (2X325MG) PO PRN (20:33)
[2019-03-13] MEDS: lisinopriL 5 MG TAB PO SCH (20:34)
[2019-03-14] VITALS (21 sets, daily range): BP systolic 115–163; BP diastolic 58–77; O2SAT 93–98
[2019-03-14] MEDS: FUROSEMIDE 100 MG/10 ML VIAL (J1940) IV SCH ×3 (00:07→23:44)
[2019-03-14 05:40] LABS: BASO # 0.1 10^3/uL (0.0-0.2); BASO % 0.7 % (0.0-1.0); EOS # 0.4 10^3/uL (0.0-0.5); EOS % 6.1 % (0.0-3.0); HEMATOCRIT 29.7 % (42.0-52.0); HEMOGLOBIN 8.5 g/dl (13.5-17.5); LYMPH # 0.3 10^3/uL (1.5-5.0); LYMPH % 4.3 % (24.0-44.0); MEAN CORPUSCULAR HGB CONC 28.6 g/dl (32.0-36.5); MEAN CORPUSCULAR VOLUME 80.3 fl (80.0-96.0); MONO # 0.8 10^3/uL (0.0-0.8); MONO % 11.1 % (0.0-5.0); NEUTROPHILS # 5.5 10^3/uL (1.5-8.5); NEUTROPHILS % 77.4 % (36.0-66.0); PLATELET COUNT, AUTOMATED 293 10^3/uL (150-450)
[2019-03-14 05:59] LABS: CALCIUM LEVEL 8.3 MG/DL (8.8-10.2); CREATININE FOR GFR 1.37 MG/DL (0.70-1.30); GLOMERULAR FILTRATION RATE 54.5 (>42); MAGNESIUM LEVEL 2.1 MG/DL (1.8-2.4); POTASSIUM SERUM 4.5 MEQ/L (3.5-5.1)
--- NOTE | 2019-03-14 07:26 | IPN ---
DATE: 03/14/2019 Mr. Rosario feels a little bit better today. He feels that his dyspnea is less and he seems to be moving around a little bit easier. Overnight, there were no significant events other than the one run of brief nonsustained ventricular tachycardia (VT) on telemetry. Vital signs this morning, blood pressure 163/77, heart rate 78, afebrile, saturation 97% on 3 liters of oxygen. His fluid balance yesterday was recorded as negative 400. He made about a liter of urine. Weight is documented at 123.2, which certainly is not compatible with the weight recorded yesterday. He is alert, oriented and appropriate. His jugular venous pulse (JVP) is still extremely elevated. Lungs are reasonably clear, though I do not appreciate any crackles or rhonchi, even though the breath sounds are somewhat diminished. Heart exam reveals somewhat muffled heart sounds, but no gallop or rub is appreciated. Abdomen is obese. There is still very prominent induration of lower extremities, essentially anasarca. Laboratories: Hemoglobin 8.5, hematocrit 29.7, platelet count 203,000. Basic metabolic panel - sodium 141, potassium 4.5, BUN 32, creatinine 1.4 and glucose 197. ASSESSMENT/PLAN: Mr. Rosario is a 69-year-old man who has ischemic cardiomyopathy with ejection fraction (EF) around 45% who presented with acute on chronic congestive heart failure. It is the indeterminate range of ejection fraction that is not consistent with either reduced or preserved ejection fraction. He seemed to be responding reasonably well to diuretics, even though the documentation of urine output is challenging. He is often incontinent and urinates into his Depends, but nevertheless he feels subjectively improved and his weight seems to be down, even though the accuracy of this is also debatable. I am going to leave the medications unchanged. If we do not see any evidence for clear-cut weight reduction though, we may need to increase the dose of diuretics further. As far as the blood pressure is concerned, he continues to be quite hypertensive. I increased the dose of hydralazine yesterday and I do expect that with weight loss he will drop his blood pressure eventually and consequently I made no medication changes in this regard. Renal function is holding steady.
[2019-03-14] MEDS: PANTOPRAZOLE 40MG TAB (PROTONIX) PO SCH (08:29)
[2019-03-14] MEDS: **hydrALAZINE** 50 MG TAB PO SCH ×3 (08:29→20:15)
[2019-03-14] MEDS: FLUoxetine 20 MG CAP PO SCH (08:29)
[2019-03-14] MEDS: HumaLOG INSULIN (NovoLOG) PER UNIT SC SCH ×4 (08:29→20:18)
[2019-03-14] MEDS: GABAPENTIN 100 MG CAP PO SCH ×2 (08:29→20:14)
[2019-03-14] MEDS: ASPIRIN 81 MG ENTERIC TAB PO SCH (08:30)
[2019-03-14] MEDS: CARVedilol 6.25 MG TAB PO SCH ×2 (08:30→20:16)
[2019-03-14] MEDS: ISOSORBIDE MON. (IMDUR) 30 MG XR TAB PO SCH (08:30)
[2019-03-14] MEDS: amLODIPine 10 MG TAB PO SCH (08:30)
[2019-03-14] MEDS: POTASSIUM CHLORIDE 10 MEQ SR TABLET PO SCH ×2 (08:30→20:15)
[2019-03-14] MEDS: SPIRONOLACTONE 12.5MG PER 1/2 TABLET PO SCH (08:31)
--- NOTE | 2019-03-14 10:04 | IPN ---
DATE: 03/14/2019 Gilberto is seen in PCU. He is on the hospitalist service. He has congestive heart failure (CHF). He is waiting for GI to do endoscopy on 03/16. He had some nonsustained V-tach overnight. He is also being followed by cardiology. He has congestive heart failure (CHF) with mildly depressed ejection fraction of 45% (technically heart failure with preserved ejection fraction, but borderline reduced). His heart failure is clinically improved. He is less short of breath on exam, apparently is improving. He has urinary incontinence so input/output is not accurate. His blood pressure has been elevated intermittently. Medications have been adjusted by cardiology and this morning's blood pressure is well controlled. PHYSICAL EXAMINATION: 132/66, pulse 77, 96% oxygen saturation on 2 liters. General appearance: Alert and conversant in no distress. No jugular venous distention (JVD). Lungs decreased breath sounds. Heart regular rhythm. Abdomen soft, nontender, no masses. Trace peripheral edema. LABS: White count 7, hemoglobin 8.5, platelets 293, sodium 141, potassium 4.5, BUN 52, creatinine 1.3, glucose 197. IMPRESSION: 1. Congestive heart failure (CHF) with preserved ejection fraction. He seems to be having fairly good diuresis on his current regimen of IV Lasix 80 mg every 12 hours, spironolactone 12.5 mg daily. Daily labs have been ordered. 2. Hypertension. Blood pressure is improved with augmented doses of antihypertensives being managed primarily by cardiology. 3. Rectal bleeding with anemia. Plan is for endoscopy on 03/16/2019. 4. History of depression. Continue his Prozac 40 mg daily to avoid SSRI withdrawal syndrome. 5. Diabetes. He is on sliding scale insulin, getting between 12 and 16 units per day. Currently not on any basal insulin pending his endoscopy. 6. Chronic kidney disease stage III. GFR is stable. Daily labs have been ordered in the face of the diuresis regimen.
--- NOTE | 2019-03-14 19:58 | CR ---
DATE OF CONSULTATION: 03/12/2019 This is a 69-year-old white male who has been admitted to [facility] ([facility]) for evaluation of increasing shortness of breath, approximately four days prior to admission. The patient has a known chronic history of congestive heart failure (CHF) and has frequent admissions for shortness of breath and CHF exacerbations. The patient has noticed that since he has been discharged he has had some slow worsening of his symptoms. He does state to me that he drinks approximately 2-3 liters of fluid a day even though he has been advised to be on fluid restriction including salt restriction. He denies any weight loss or change in bowel habits. No melena, hematochezia, or bright blood per rectum. REVIEW OF SYSTEMS: 12-point review of systems is noncontributory to the above problem. PAST MEDICAL HISTORY: Positive for: 1. Coronary artery disease with a graft. 2. Hypertension. 3. Cerebrovascular accident (CVA) in 2014 with left hemiplegia and a right pontine CVA in June of 2018. The patient also has had a cerebellar basal ganglia thalamic stroke. 4. Dyslipidemia. 5. Prostate cancer status post radiation. 6. Prosthetic aortic valve replacement. 7. Chronic kidney disease. 8. Diabetes mellitus with neuropathy. 9. Obstructive sleep apnea. 10. Diastolic congestive heart failure (CHF). PAST SURGICAL HISTORY: 1. Status post cholecystectomy. 2. Aortic valve replaced 3. Coronary artery disease. SOCIAL HISTORY: The patient stopped smoking at age 17. The patient denies alcohol abuse. FAMILY HISTORY: Positive for colon cancer in his mother. ALLERGIES: As above. GENERAL: He is a well-developed, well-nourished, slightly obese, white male in no acute distress, appears stated age. CHEST: Clear. CARDIOVASCULAR: Examination showed an irregular rhythm. No murmurs or gallops. Normal physiological split, S1, S2. ABDOMEN: Soft, nontender. No hepatosplenomegaly. Bowel sounds positive. EXTREMITIES: Showed 3+ to 4+ pitting edema including swelling of his hands. DIAGNOSTIC STUDIES: On admission shows laboratory studies with a white count of 14,800 on admission with a Hemoglobin 27.5. The patient has MCV of 77.7. The patient was given two units of packed cells and his most recent counts on 03/13/2019 showed white count of 7600 and hemoglobin and hematocrit of 8.5 and 28.1. Platelets were normal. The patient's chemistries on admission showed a BUN of 29, creatinine was 1.4. BNP was 5190. IMAGING STUDIES: Chest x-ray showed a somewhat improved CHF pattern. ANALYSIS: 1. Anemia of unknown etiology without a setting of active bleeding. The patient may be possibly dropping his count through the gastrointestinal (GI) tract as he has low iron stores with a mean corpuscular volume (MCV) that is slightly elevated. 2. He also has chronic congestive heart failure (CHF) and the anemia could be possibly a combination of chronic renal failure and dilutional status form his CHF. PLAN: 1. Advise that the hospitalist optimize his cardiac issues for a bowel preparation on Thursday with a colonoscopy and upper endoscopy considered for possibly on Thursday. 2. Discussed this with the patient and all orders will be placed. MARY
[2019-03-14] MEDS: ACETAMINOPHEN TAB 650MG DOSE (2X325MG) PO PRN (20:14)
[2019-03-14] MEDS: lisinopriL 5 MG TAB PO SCH (20:15)
[2019-03-14] MEDS: ATORVASTATIN 20 MG TAB PO SCH (20:15)
[2019-03-15] VITALS (20 sets, daily range): BP systolic 132–161; BP diastolic 61–77; O2SAT 92–99
[2019-03-15] MEDS ORDERED: GOLYTELY SOLN 4000 ML BTL PO ONE (06:00)
[2019-03-15 06:51] LABS: BASO # 0.1 10^3/uL (0.0-0.2); EOS # 0.4 10^3/uL (0.0-0.5); EOS % 5.9 % (0.0-3.0); HEMATOCRIT 28.2 % (42.0-52.0); HEMOGLOBIN 8.4 g/dl (13.5-17.5); LYMPH # 0.4 10^3/uL (1.5-5.0); LYMPH % 5.9 % (24.0-44.0); MEAN CORPUSCULAR HEMOGLOBIN 23.7 pg (27.0-33.0); MEAN CORPUSCULAR HGB CONC 29.8 g/dl (32.0-36.5); MEAN CORPUSCULAR VOLUME 79.7 fl (80.0-96.0); MONO # 0.8 10^3/uL (0.0-0.8); MONO % 13.2 % (0.0-5.0); NEUTROPHILS # 4.6 10^3/uL (1.5-8.5); NEUTROPHILS % 73.7 % (36.0-66.0); PLATELET COUNT, AUTOMATED 295 10^3/uL (150-450); RED BLOOD COUNT 3.54 10^6/uL (4.30-6.10); WHITE BLOOD COUNT 6.2 10^3/uL (4.0-10.0)
[2019-03-15 07:17] LABS: CALCIUM LEVEL 8.7 MG/DL (8.8-10.2); CREATININE FOR GFR 1.36 MG/DL (0.70-1.30); MAGNESIUM LEVEL 2.2 MG/DL (1.8-2.4); POTASSIUM SERUM 4.4 MEQ/L (3.5-5.1)
[2019-03-15] MEDS: FLUoxetine 20 MG CAP PO SCH (08:22)
[2019-03-15] MEDS: ASPIRIN 81 MG ENTERIC TAB PO SCH (08:22)
[2019-03-15] MEDS: HumaLOG INSULIN (NovoLOG) PER UNIT SC SCH ×4 (08:22→20:53)
[2019-03-15] MEDS: SPIRONOLACTONE 12.5MG PER 1/2 TABLET PO SCH (08:22)
[2019-03-15] MEDS: PANTOPRAZOLE 40MG TAB (PROTONIX) PO SCH (08:22)
[2019-03-15] MEDS: **hydrALAZINE** 50 MG TAB PO SCH ×3 (08:22→21:31)
[2019-03-15] MEDS: GABAPENTIN 100 MG CAP PO SCH ×2 (08:22→21:29)
[2019-03-15] MEDS: POTASSIUM CHLORIDE 10 MEQ SR TABLET PO SCH ×2 (08:22→21:30)
[2019-03-15] MEDS: amLODIPine 10 MG TAB PO SCH (08:23)
[2019-03-15] MEDS: CARVedilol 6.25 MG TAB PO SCH ×2 (08:23→21:30)
[2019-03-15] MEDS: ISOSORBIDE MON. (IMDUR) 30 MG XR TAB PO SCH (08:23)
--- NOTE | 2019-03-15 09:04 | IPN ---
DATE: 03/15/2019 Mr. Rosario believes that he is feeling better. He feels that his volume status has improved, but on my exam is not very convincing. Denies any chest pain. He was supposed to start using going GoLYTELY for preparation for endoscopy tomorrow. Vital Signs: Blood pressure 133/61, heart rate has been 60s to 70s. He is afebrile. Saturation 96% on 2 liters. Fluid balance yesterday was recorded negative 400, but unfortunately both intake as well as output were not well recorded. Weight is 125.9 kg, which is up from yesterday, but again the reliability of it is certainly poor. He is alert and oriented, appropriate. His jugular venous pulse (JVP) still very high, easily 7-10 cm above clavicle. Lungs are relatively clear with somewhat diminished breath sounds over bases. No crackles. Heart exam regular rhythm. I do not appreciate any gallop but muffled heart sounds corresponding to his body habitus. Abdomen is distended and soft. There is still 3+ edema to the level of his waist. Laboratories: Basic metabolic panel - sodium 142, potassium 4.4, BUN 37, creatinine 1.4 for GFR 55, glucose 179. CBC - hemoglobin 8.4, hematocrit 28, platelet count 295,000. ASSESSMENT/PLAN: Mr. Rosario is a 69-year-old man who has ischemic cardiomyopathy with ejection fraction in approximately 45% range who presents with yet another exacerbation of congestive heart failure. He is grossly volume overloaded and needs to diurese a significant amount of weight. So far it is difficult to head of maintenance the success of our interventions because the documentation of output, meaning urine production, has not been reliable due to his incontinence and also his weight has not been reliable either. I spoke with his nurse and she will make an attempt that he is weighed on scale every day so we have more objective measurements of our success, but clinically it does not appear that we are making much progress and I am going to increase the dose of furosemide further to 80 mg three times a day. He also takes small dose of spironolactone. Renal function so far has been holding steady. He takes numerous antihypertensive medications, which will be continued. As far as the anemia is concerned, I asked the attending physician to postpone the colonoscopy because his hemoglobin has been stable and does not look like he is actively bleeding. He is still grossly volume overloaded and I think it would be safer if the colonoscopy is performed under better conditions. Also, I am not sure how would tolerate the very high dose of GoLYTELY because it would likely create confusion in his fluid balance and electrolytes. His prognosis is certainly guarded. I am little bit worried about the fact that we have not been making much progress in spite of very high diuretic dosing.
[2019-03-15] MEDS: FUROSEMIDE 100 MG/10 ML VIAL (J1940) IV SCH ×3 (09:20→23:45)
--- NOTE | 2019-03-15 13:27 | IPNPDOC ---
Subjective Date Seen The patient was seen on 03/15/19. Subjective Chief Complaint/HPI Feels better, less sob with mild activity. No active GI bleeding. Objective Physical Examination General Exam: Positive: Alert, No Acute Distress Eye Exam: Positive: PERRLA Neck Exam: Positive: Supple, JVD Chest Exam: Positive: Normal air movement, Diminished Heart Exam: Positive: Rate Normal Abdomen Exam: Positive: Normal bowel sounds Extremity Exam: Positive: Edema (4+), Other (anasarca) Neuro Exam: Positive: Normal Speech Psych Exam: Positive: Mental status NL Assessment /Plan Assessment # Acute on chronic diastolic CHF with Anasarca - d/w Dr. Velez, feels that patient needs further diuresis. D/w Dr. Olivo Hgb is stable will plan for outpatient colonoscopy - mgmt per cardiology - daily labs # CKD stage 3 - creat stable # Anemia with + guaiac - monitor CBC daily - check iron studies - discontinue bowel prep # IDDM2 - resume carb diet - continue SS - plan to resume long-acting if BG trend higher Plan/VTE VTE Prophylaxis Ordered?: No VTE Exclusion Pharmacological: Bleeding Risk VS, I&O, 24H, Fishbone Vital Signs/I&O Vital Signs Date Time Temp Pulse Resp B/P (MAP) Pulse Ox O2 Delivery O2 Flow Rate FiO2 03/15/19 12:00 97.2 70 18 146/68 (94) 97 Nasal Cannula 2.0 03/09/19 22:01 35 I&O- Last 24 Hours up to 6 AM 03/15/19 06:00 Intake Total 300 ml Output Total 600 ml Balance -300 ml Laboratory Data 24H LABS Laboratory Tests 2 03/14/19 17:16: Bedside Glucose (Misc Panel) 147H 03/14/19 19:31: Bedside Glucose (Misc Panel) 155H 03/15/19 06:22: Immature Granulocyte % (Auto) 0.3, Neutrophils (%) (Auto) 73.7H, Lymphocytes (%) (Auto) 5.9L, Monocytes (%) (Auto) 13.2H, Eosinophils (%) (Auto) 5.9H, Basophils (%) (Auto) 1.0, Neutrophils # (Auto) 4.6, Lymphocytes # (Auto) 0.4L, Monocytes # (Auto) 0.8, Eosinophils # (Auto) 0.4, Basophils # (Auto) 0.1, Nucleated Red Blood Cells % (auto) 0.0, Anion Gap 7L, Glomerular Filtration Rate 55.0, Calcium Level 8.7L, Magnesium Level 2.2 03/15/19 11:26: Bedside Glucose (Misc Panel) 177H CBC/BMP Laboratory Tests 03/15/19 06:22 Microbiology Microbiology 03/12/19 Urine Culture - Final, Complete 03/11/19 Stool Occult Blood (BOBBY) - Final, Complete 03/09/19 Blood Culture - Final, Complete NO GROWTH AFTER 5 DAYS 03/09/19 Respiratory Virus Panel (PCR) (BOBBY) - Final, Complete 03/09/19 Blood Culture - Final, Complete NO GROWTH AFTER 5 DAYS JANETTE CUI MD Mar 15, 2019 13:27
[2019-03-15 15:01] LABS: PERCENT SATURATION 5.9 % (19.7-50.0)
[2019-03-15 15:06] LABS: FOLATE 7.8 NG/ML (>5.4)
[2019-03-15] MEDS: ATORVASTATIN 20 MG TAB PO SCH (21:30)
[2019-03-15] MEDS: lisinopriL 5 MG TAB PO SCH (21:30)
[2019-03-16] VITALS (23 sets, daily range): BP systolic 118–146; BP diastolic 57–80; O2SAT 95–100
[2019-03-16 06:24] LABS: BASO # 0.1 10^3/uL (0.0-0.2); BASO % 0.7 % (0.0-1.0); EOS # 0.4 10^3/uL (0.0-0.5); EOS % 5.5 % (0.0-3.0); HEMATOCRIT 29.3 % (42.0-52.0); HEMOGLOBIN 8.6 g/dl (13.5-17.5); LYMPH # 0.3 10^3/uL (1.5-5.0); LYMPH % 4.9 % (24.0-44.0); MEAN CORPUSCULAR HEMOGLOBIN 23.4 pg (27.0-33.0); MEAN CORPUSCULAR HGB CONC 29.4 g/dl (32.0-36.5); MEAN CORPUSCULAR VOLUME 79.6 fl (80.0-96.0); MONO # 0.7 10^3/uL (0.0-0.8); MONO % 10.7 % (0.0-5.0); NEUTROPHILS # 5.2 10^3/uL (1.5-8.5); NEUTROPHILS % 77.6 % (36.0-66.0); PLATELET COUNT, AUTOMATED 256 10^3/uL (150-450); RED BLOOD COUNT 3.68 10^6/uL (4.30-6.10); WHITE BLOOD COUNT 6.7 10^3/uL (4.0-10.0)
[2019-03-16 06:48] LABS: CALCIUM LEVEL 8.6 MG/DL (8.8-10.2); CREATININE FOR GFR 1.48 MG/DL (0.70-1.30); GLOMERULAR FILTRATION RATE 49.9 (>42); MAGNESIUM LEVEL 2.1 MG/DL (1.8-2.4); POTASSIUM SERUM 4.4 MEQ/L (3.5-5.1)
[2019-03-16] MEDS: HumaLOG INSULIN (NovoLOG) PER UNIT SC SCH ×4 (08:07→21:00)
[2019-03-16] MEDS: FUROSEMIDE 100 MG/10 ML VIAL (J1940) IV SCH ×3 (08:08→23:57)
[2019-03-16] MEDS: POTASSIUM CHLORIDE 10 MEQ SR TABLET PO SCH ×2 (08:08→21:03)
[2019-03-16] MEDS: SPIRONOLACTONE 12.5MG PER 1/2 TABLET PO SCH (08:09)
[2019-03-16] MEDS: PANTOPRAZOLE 40MG TAB (PROTONIX) PO SCH (08:09)
[2019-03-16] MEDS: FLUoxetine 20 MG CAP PO SCH (08:09)
[2019-03-16] MEDS: CARVedilol 6.25 MG TAB PO SCH ×2 (08:09→21:04)
[2019-03-16] MEDS: GABAPENTIN 100 MG CAP PO SCH ×2 (08:09→21:04)
[2019-03-16] MEDS: **hydrALAZINE** 50 MG TAB PO SCH ×3 (08:10→21:04)
[2019-03-16] MEDS: ISOSORBIDE MON. (IMDUR) 30 MG XR TAB PO SCH (08:10)
[2019-03-16] MEDS: ASPIRIN 81 MG ENTERIC TAB PO SCH (08:10)
[2019-03-16] MEDS: amLODIPine 10 MG TAB PO SCH (08:10)
--- NOTE | 2019-03-16 08:17 | IPN ---
DATE: 03/16/2019 Mr. Rosario to me does not look much different than he did yesterday on first glance, but he believes that his breathing is improving every day. He did not have any significant arrhythmias on telemetry. Vital signs this morning blood pressure 144/69, heart rate has been in 70s. Saturation is 98-100% on 3 liters of oxygen. His fluid balance yesterday again was somewhat challenging to record, but nevertheless, it was recorded as only 700 mL of urine output but with incontinence of bowel movements. It is a little bit difficult to frozen yogurt maker but with a chair scale his weight yesterday was 127.6 kg and it is 121 kg today. He is alert and oriented and appropriate. His jugular venous pulse (JVP) still very high. Lungs are relatively clear. Heart exam reveals regular rhythm without gallop. Murmur is unchanged. Abdomen is obese but soft. There is very prominent edema of all extremities reaching all the way to his low back. Laboratories: Hemoglobin 8.6, hematocrit 29, platelet count 256,000 and basic metabolic panel sodium 140, potassium 4.4, BUN 41, creatinine 1.5, and glucose 230. ASSESSMENT/PLAN: Mr. Rosario is a 69-year-old man who presented with gastrointestinal (GI) bleed but he also has coronary artery disease with history of CABG and aVR with ejection fraction (EF) around 45%. He remains in grossly volume overloaded state. He has been receiving very high doses of diuretics. Unfortunately, the response is somewhat difficult to frozen yogurt maker with challenging recording of the urine output due to intermittent incontinence. Nevertheless, he clearly remains grossly volume elevated. I am hoping that with chair scale being used at the documentation of weight is more accurate and consistent. Based on this, we accomplished significant diuresis since yesterday but I am little skeptical that the difference is real as it seems to be little too much weight loss in over just 24 hours. I am going to make no changes in his medications today.
--- NOTE | 2019-03-16 13:37 | IPNPDOC ---
Subjective Date Seen The patient was seen on 03/16/19. Subjective Chief Complaint/HPI continues to feel better, but still has at least 10-20 L of excess fluid Objective Physical Examination General Exam: Positive: Alert, No Acute Distress Eye Exam: Positive: PERRLA Neck Exam: Positive: Supple, JVD Chest Exam: Positive: Normal air movement, Diminished Heart Exam: Positive: Rate Normal Abdomen Exam: Positive: Normal bowel sounds Extremity Exam: Positive: Edema (4+), Other (anasarca) Neuro Exam: Positive: Normal Speech Psych Exam: Positive: Mental status NL Assessment /Plan Assessment # Acute on chronic diastolic CHF with Anasarca - Cardiology noted reviewed, continue current diuretic schedule - daily labs # CKD stage 3 - creat stable # Anemia with + guaiac - monitor CBC daily - iron studies indeterminate - EGD/C-scope as an outpatient if Hgb remains stable # IDDM2 - resume carb diet - continue SS - resume levemir 10 units qhs, hold the other 10 units for now Plan/VTE VTE Prophylaxis Ordered?: No VTE Exclusion Mechanical Proph: N/A:VTE Prophy Ordered VTE Exclusion Pharmacological: N/A:VTE Prophy Ordered VS, I&O, 24H, Fishbone Vital Signs/I&O Vital Signs Date Time Temp Pulse Resp B/P (MAP) Pulse Ox O2 Delivery O2 Flow Rate FiO2 03/16/19 13:00 98 Nasal Cannula 3.0 03/16/19 12:00 97.7 60 20 124/80 (95) I&O- Last 24 Hours up to 6 AM 03/16/19 06:00 Intake Total 1225 ml Output Total 875 ml Balance 350 ml Laboratory Data 24H LABS Laboratory Tests 2 03/15/19 14:03: Iron Level 21L, Total Iron Binding Capacity 357, Transferrin % Saturation 5.9L, Ferritin 38, Vitamin B12 Level 496, Folate 7.8 03/15/19 16:50: Bedside Glucose (Misc Panel) 209H 03/15/19 20:18: Bedside Glucose (Misc Panel) 199H 03/16/19 05:54: Immature Granulocyte % (Auto) 0.6, Neutrophils (%) (Auto) 77.6H, Lymphocytes (%) (Auto) 4.9L, Monocytes (%) (Auto) 10.7H, Eosinophils (%) (Auto) 5.5H, Basophils (%) (Auto) 0.7, Neutrophils # (Auto) 5.2, Lymphocytes # (Auto) 0.3L, Monocytes # (Auto) 0.7, Eosinophils # (Auto) 0.4, Basophils # (Auto) 0.1, Nucleated Red Blood Cells % (auto) 0.0, Anion Gap 8, Glomerular Filtration Rate 49.9, Calcium Level 8.6L, Magnesium Level 2.1 03/16/19 11:43: Bedside Glucose (Misc Panel) 269H CBC/BMP Laboratory Tests 03/16/19 05:54 Microbiology Microbiology 03/12/19 Urine Culture - Final, Complete 03/11/19 Stool Occult Blood (BOBBY) - Final, Complete 03/09/19 Blood Culture - Final, Complete NO GROWTH AFTER 5 DAYS 03/09/19 Respiratory Virus Panel (PCR) (BOBBY) - Final, Complete 03/09/19 Blood Culture - Final, Complete NO GROWTH AFTER 5 DAYS JANETTE CUI MD Mar 16, 2019 13:37
[2019-03-16] MEDS ORDERED: LEVEMIR (INSULIN DETEMIR) 1 UNITS/0.01ML SC SCH (21:00)
[2019-03-16] MEDS: ATORVASTATIN 20 MG TAB PO SCH (21:03)
[2019-03-16] MEDS: lisinopriL 5 MG TAB PO SCH (21:03)
[2019-03-17] VITALS (23 sets, daily range): BP systolic 135–156; BP diastolic 60–77; O2SAT 91–100
[2019-03-17 05:51] LABS: BASO # 0.1 10^3/uL (0.0-0.2); BASO % 0.9 % (0.0-1.0); EOS # 0.5 10^3/uL (0.0-0.5); EOS % 5.7 % (0.0-3.0); HEMATOCRIT 28.5 % (42.0-52.0); HEMOGLOBIN 8.5 g/dl (13.5-17.5); LYMPH # 0.4 10^3/uL (1.5-5.0); LYMPH % 5.3 % (24.0-44.0); MEAN CORPUSCULAR HEMOGLOBIN 23.6 pg (27.0-33.0); MEAN CORPUSCULAR HGB CONC 29.8 g/dl (32.0-36.5); MEAN CORPUSCULAR VOLUME 79.2 fl (80.0-96.0); MONO # 0.7 10^3/uL (0.0-0.8); MONO % 8.9 % (0.0-5.0); NEUTROPHILS # 6.3 10^3/uL (1.5-8.5); NEUTROPHILS % 78.8 % (36.0-66.0); PLATELET COUNT, AUTOMATED 261 10^3/uL (150-450)
[2019-03-17 06:30] LABS: CALCIUM LEVEL 8.8 MG/DL (8.8-10.2); CREATININE FOR GFR 1.55 MG/DL (0.70-1.30); GLOMERULAR FILTRATION RATE 47.3 (>42); MAGNESIUM LEVEL 2.2 MG/DL (1.8-2.4); POTASSIUM SERUM 4.7 MEQ/L (3.5-5.1)
[2019-03-17] MEDS: HumaLOG INSULIN (NovoLOG) PER UNIT SC SCH ×4 (08:05→21:17)
[2019-03-17] MEDS: FUROSEMIDE 100 MG/10 ML VIAL (J1940) IV SCH ×2 (08:44→16:27)
[2019-03-17] MEDS: PANTOPRAZOLE 40MG TAB (PROTONIX) PO SCH (08:44)
[2019-03-17] MEDS: CARVedilol 6.25 MG TAB PO SCH ×2 (08:44→21:18)
[2019-03-17] MEDS: ASPIRIN 81 MG ENTERIC TAB PO SCH (08:44)
[2019-03-17] MEDS: ISOSORBIDE MON. (IMDUR) 30 MG XR TAB PO SCH (08:45)
[2019-03-17] MEDS: GABAPENTIN 100 MG CAP PO SCH ×2 (08:45→21:18)
[2019-03-17] MEDS: **hydrALAZINE** 50 MG TAB PO SCH ×3 (08:45→21:18)
[2019-03-17] MEDS: FLUoxetine 20 MG CAP PO SCH (08:45)
[2019-03-17] MEDS: POTASSIUM CHLORIDE 10 MEQ SR TABLET PO SCH ×2 (08:45→21:18)
[2019-03-17] MEDS: SPIRONOLACTONE 12.5MG PER 1/2 TABLET PO SCH (08:46)
--- NOTE | 2019-03-17 09:23 | IPN ---
DATE: 03/17/2019 Mr. Rosario is not changing appreciably. Unfortunately, in spite of very high doses of diuretics, his urine output has been disappointing. Even though the documentation is difficult due to incontinence, his weight is actually up compared to yesterday if I can trust the accuracy of the measurement. He himself believes that he is does not seem to be making much urine, which is very surprising. Besides dyspnea and edema, he has no other complaints and still believes that he is actually improved compared to admission, but I do not see anything convincingly better. PHYSICAL EXAMINATION: Vital signs: Blood pressure 156/70, heart rate has been 70s, saturation 97-99% on 3 liters of oxygen. He is afebrile. Weight is recorded 123.9 kg. The jugular venous pressure is still very high but lungs are reasonably clear. Heart: Exam reveals regular rhythm. I do not appreciate any gallop. Abdomen is obese but soft. There is prominent peripheral edema extending all the way to low back. Telemetry monitoring revealed single run of nonsustained ventricular tachycardia. LABORATORY: Hemoglobin 8.5, hematocrit 28, platelet count 261,000. Basic metabolic panel: Sodium 140, potassium 4.7, BUN 44, creatinine 1.6 and glucose 203. ASSESSMENT/PLAN Mr. Rosario is a 69-year-old man who has coronary artery disease and aortic valve replacement and presented with congestive heart failure with ejection fraction in the middle range. Estimated ejection fraction is about 45%. He is in clear-cut heart failure but to my astonishment he does not seem to be responding to diuretic treatment very well. He did have stenting of his renal artery in September and I am going to obtain a Doppler to make sure that there is no severe restenosis because I do not know how else to explain his lack of response. His GFR is relatively preserved so he should be responding to current dose of diuretics and his blood pressure is certainly not low. The only change I am going to make today as I am going to discontinue amlodipine. I believe that the combination with hydralazine does not have much role and it can be contributing to his peripheral edema.
--- NOTE | 2019-03-17 13:43 | IPNPDOC ---
Subjective Date Seen The patient was seen on 03/17/19. Subjective Chief Complaint/HPI Gilberto is resting in the chair. He is not diuresing as much as we would like and still has considerable anasarca. However his breathing is improved, and he's getting around well despite the excess fluid. Objective Physical Examination General Exam: Positive: Alert, No Acute Distress Eye Exam: Positive: PERRLA Neck Exam: Positive: Supple, JVD Chest Exam: Positive: Normal air movement, Diminished Heart Exam: Positive: Rate Normal, Normal S1, Normal S2, Murmurs Abdomen Exam: Positive: Normal bowel sounds Extremity Exam: Positive: Edema (4+), Other (anasarca) Neuro Exam: Positive: Normal Speech Psych Exam: Positive: Mental status NL Assessment /Plan Assessment # Acute on chronic diastolic CHF with Anasarca - Cardiology noted reviewed, continue current diuretic schedule, Iv lasix 80 q8 - daily labs - renal uls w/ doppler pending to exclude recurrent JOSEFINA # CKD stage 3 - creat slightly elevated today # Anemia with + guaiac - monitor CBC daily - iron studies indeterminate - EGD/C-scope as an outpatient if Hgb remains stable # IDDM2 - resume carb diet - continue SS - change levemir 10 units bid Plan/VTE VTE Prophylaxis Ordered?: No VTE Exclusion Mechanical Proph: N/A:VTE Prophy Ordered VTE Exclusion Pharmacological: N/A:VTE Prophy Ordered VS, I&O, 24H, Fishbone Vital Signs/I&O Vital Signs Date Time Temp Pulse Resp B/P (MAP) Pulse Ox O2 Delivery O2 Flow Rate FiO2 03/17/19 12:00 3.0 03/17/19 12:00 97.5 67 18 137/60 (85) 96 Nasal Cannula I&O- Last 24 Hours up to 6 AM 03/17/19 06:00 Intake Total 1050 ml Output Total 575 ml Balance 475 ml Laboratory Data 24H LABS Laboratory Tests 2 03/16/19 16:31: Bedside Glucose (Misc Panel) 212H 03/16/19 20:46: Bedside Glucose (Misc Panel) 181H 03/17/19 05:31: Immature Granulocyte % (Auto) 0.4, Neutrophils (%) (Auto) 78.8H, Lymphocytes (%) (Auto) 5.3L, Monocytes (%) (Auto) 8.9H, Eosinophils (%) (Auto) 5.7H, Basophils (%) (Auto) 0.9, Neutrophils # (Auto) 6.3, Lymphocytes # (Auto) 0.4L, Monocytes # (Auto) 0.7, Eosinophils # (Auto) 0.5, Basophils # (Auto) 0.1, Nucleated Red Blood Cells % (auto) 0.0, Anion Gap 7L, Glomerular Filtration Rate 47.3, Calcium Level 8.8, Magnesium Level 2.2 03/17/19 11:46: Bedside Glucose (Misc Panel) 256H CBC/BMP Laboratory Tests 03/17/19 05:31 Microbiology Microbiology 03/12/19 Urine Culture - Final, Complete 03/11/19 Stool Occult Blood (BOBBY) - Final, Complete 03/09/19 Blood Culture - Final, Complete NO GROWTH AFTER 5 DAYS 03/09/19 Respiratory Virus Panel (PCR) (BOBBY) - Final, Complete 03/09/19 Blood Culture - Final, Complete NO GROWTH AFTER 5 DAYS JANETTE CUI MD Mar 17, 2019 13:43
[2019-03-17] MEDS: ATORVASTATIN 20 MG TAB PO SCH (21:17)
[2019-03-17] MEDS: LEVEMIR (INSULIN DETEMIR) 1 UNITS/0.01ML SC SCH (21:17)
[2019-03-17] MEDS: lisinopriL 5 MG TAB PO SCH (21:18)
[2019-03-18] VITALS (16 sets, daily range): BP systolic 113–150; BP diastolic 56–76; O2SAT 95–99
[2019-03-18] MEDS: FUROSEMIDE 100 MG/10 ML VIAL (J1940) IV SCH ×3 (00:11→16:47)
[2019-03-18 05:49] LABS: HEMATOCRIT 26.4 % (42.0-52.0); MEAN CORPUSCULAR HGB CONC 30.3 g/dl (32.0-36.5); MEAN CORPUSCULAR VOLUME 79.3 fl (80.0-96.0); PLATELET COUNT, AUTOMATED 244 10^3/uL (150-450); RED BLOOD COUNT 3.33 10^6/uL (4.30-6.10); WHITE BLOOD COUNT 7.4 10^3/uL (4.0-10.0)
[2019-03-18 06:11] LABS: CALCIUM LEVEL 8.1 MG/DL (8.8-10.2); CREATININE FOR GFR 1.44 MG/DL (0.70-1.30); GLOMERULAR FILTRATION RATE 51.5 (>42); MAGNESIUM LEVEL 2.1 MG/DL (1.8-2.4); PHOSPHORUS LEVEL 3.8 MG/DL (2.5-4.9); POTASSIUM SERUM 4.4 MEQ/L (3.5-5.1)
--- NOTE | 2019-03-18 08:28 | IPN ---
DATE: 03/18/2019 Mr. Rosario remains about the same. He gets easily short of breath with minimal activity, but denied any paroxysmal nocturnal dyspnea (PND) or orthopnea and slept well. He denies any chest pain. The renal artery Doppler was not performed yesterday, but is scheduled for today. Vital Signs: Blood pressure 150/71. Heart rate has been in the 60s, sinus rhythm with rare rhythmic ectopy. Saturation is 97% on 3 liters of oxygen. Fluid balance yesterday was recorded as approximately equal, but unfortunately both intake and output are poorly recorded. Weight is 124.7 kg, but is in a bed scale as opposed he was weighed on a chair scale the days before. He is alert, oriented and appropriate. His jugular venous pulse (JVP) is still high. Lungs are reasonably clear. Heart exam reveals a regular rhythm. Murmur is unchanged, consistent with aortic stenosis. Abdomen is soft, nontender. There is still very prominent edema. Neurologically intact. Laboratories: Basic metabolic panel with sodium 140, potassium 4.4, BUN 44, creatinine 1.4, GFR 52, and glucose 260. Hemoglobin remains low at 8.0. Hematocrit 26.4. ASSESSMENT AND PLAN: Mr. Rosario is a 69-year-old man who has history of coronary artery disease with coronary artery bypass graft (CABG) and aortic valve replacement with bioprosthetic valve. He presented with heart failure and GI bleeding. He was ready to have a colonoscopy, but I asked the attending physician to withhold the procedure until the heart failure is better controlled. Unfortunately, it seems to be very challenging to accomplish. One of the problems I have is that there is no good documentation of his fluid balance. I am going to ask the nursing staff to obtain a chair scale weight again because it is very difficult to see whether we are making any progress or not, but considering his GFR of around 50, he should be responding without problems to the current dose of loop diuretics and so I am perplexed at the urine output that is recorded relatively low. I did not make any medication changes today. I will sign the patient off to the weekend cardiology coverage.
[2019-03-18] MEDS: ISOSORBIDE MON. (IMDUR) 30 MG XR TAB PO SCH (09:00)
[2019-03-18] MEDS: CARVedilol 6.25 MG TAB PO SCH ×2 (09:00→21:06)
[2019-03-18] MEDS: PANTOPRAZOLE 40MG TAB (PROTONIX) PO SCH (09:00)
[2019-03-18] MEDS: FLUoxetine 20 MG CAP PO SCH (09:00)
[2019-03-18] MEDS: ASPIRIN 81 MG ENTERIC TAB PO SCH (09:00)
[2019-03-18] MEDS: SPIRONOLACTONE 12.5MG PER 1/2 TABLET PO SCH (09:00)
[2019-03-18] MEDS: **hydrALAZINE** 50 MG TAB PO SCH ×2 (09:00→16:47)
[2019-03-18] MEDS: GABAPENTIN 100 MG CAP PO SCH ×2 (09:00→21:05)
[2019-03-18] MEDS: POTASSIUM CHLORIDE 10 MEQ SR TABLET PO SCH ×2 (09:00→21:05)
[2019-03-18] MEDS: LEVEMIR (INSULIN DETEMIR) 1 UNITS/0.01ML SC SCH ×2 (09:07→21:04)
[2019-03-18] MEDS: HumaLOG INSULIN (NovoLOG) PER UNIT SC SCH ×3 (12:16→21:26)
--- NOTE | 2019-03-18 12:25 | IPNPDOC ---
Subjective Date Seen The patient was seen on 03/18/19. Subjective Chief Complaint/HPI Resting in bed eating lunch. Upper extremity swelling has improved. Poole placed with return of 800 ml of clear urine. Objective Physical Examination General Exam: Positive: Alert, No Acute Distress Eye Exam: Positive: PERRLA Neck Exam: Positive: Supple, JVD Chest Exam: Positive: Normal air movement, Diminished Heart Exam: Positive: Rate Normal, Normal S1, Normal S2, Murmurs Abdomen Exam: Positive: Normal bowel sounds Extremity Exam: Positive: Edema (4+), Other (anasarca) Neuro Exam: Positive: Normal Speech Psych Exam: Positive: Mental status NL Assessment /Plan Assessment # Acute on chronic diastolic CHF with Anasarca - Cardiology following, Iv lasix 80 mg q8 - daily labs ( mag, K, and creat remain stable) - renal uls w/ doppler results pending to exclude recurrent JOSEFINA # CKD stage 3 - creat slightly down today # Anemia with + guaiac - monitor CBC daily - iron studies indeterminate - EGD/C-scope as an outpatient if Hgb remains stable # IDDM2 - resume carb diet - continue SS - changed levemir 10 units bid, with improvement in glycemic control Plan/VTE VTE Prophylaxis Ordered?: No VTE Exclusion Mechanical Proph: N/A:VTE Prophy Ordered VTE Exclusion Pharmacological: N/A:VTE Prophy Ordered VS, I&O, 24H, Fishbone Vital Signs/I&O Vital Signs Date Time Temp Pulse Resp B/P (MAP) Pulse Ox O2 Delivery O2 Flow Rate FiO2 03/18/19 09:00 97 Nasal Cannula 3.0 03/18/19 08:00 97.7 74 18 113/56 (75) I&O- Last 24 Hours up to 6 AM 03/18/19 06:00 Intake Total 900 ml Output Total 1200 ml Balance -300 ml Laboratory Data 24H LABS Laboratory Tests 2 03/17/19 16:31: Bedside Glucose (Misc Panel) 209H 03/17/19 20:09: Bedside Glucose (Misc Panel) 289H 03/18/19 05:21: Nucleated Red Blood Cells % (auto) 0.0, Anion Gap 7L, Glomerular Filtration Rate 51.5, Calcium Level 8.1L, Phosphorus Level 3.8, Magnesium Level 2.1 03/18/19 11:24: Bedside Glucose (Misc Panel) 177H CBC/BMP Laboratory Tests 03/18/19 05:21 Microbiology Microbiology 03/12/19 Urine Culture - Final, Complete 03/11/19 Stool Occult Blood (BOBBY) - Final, Complete 03/09/19 Blood Culture - Final, Complete NO GROWTH AFTER 5 DAYS 03/09/19 Respiratory Virus Panel (PCR) (BOBBY) - Final, Complete 03/09/19 Blood Culture - Final, Complete NO GROWTH AFTER 5 DAYS JANETTE CUI MD Mar 18, 2019 12:25
--- NOTE | 2019-03-18 13:34 | REP ---
URINARY TRACT SONOGRAPHY WITH RENAL ARTERY DOPPLER FLOW ASSESSMENT: HISTORY: Right renal artery stent placed. Hypertension. MORPHOLOGIC FINDINGS: Renal cortical echogenicity pattern is normal and contours are smooth. Right kidney measures 12.6 x 6.9 x 5.7 cm. Left renal dimensions are 12.5 x 5.1 x 7.0 cm. Emptying ureteral jets are observed on color Doppler interrogation of the bladder lumen bilaterally. No bladder mass lesion is evident. RENAL ARTERY DOPPLER STUDY: Peak systolic flow velocity in the abdominal aorta at the level of the main renal arteries is normal measured at 90.2 cm/s. Peak systolic flow velocity in the left main renal artery is 86.4 cm/s measured peripherally. This measurement was somewhat peripheral. The very proximal most left main renal artery was obscured by bowel gas. In the right main renal artery peak systolic flow velocity is 165 cm/s. Renal to aortic flow velocity ratios are therefore 1.8 on the right and 1.0 on the left. These values are normal. Resistive indices and acceleration times are measured in the upper mid and lower pole intralobar arteries bilaterally. Resistive indices are borderline elevated, however these are actually somewhat lower than on the prior study. IMPRESSION: No current to the Doppler evidence to suggest renal artery stenosis. Electronically Signed by John Jett MD 03/18/2019 08:46 P
[2019-03-18] MEDS ORDERED: VALSARTAN 80 MG TAB (DIOVAN) PO SCH (21:00)
[2019-03-18] MEDS: ATORVASTATIN 20 MG TAB PO SCH (21:05)
[2019-03-18] MEDS: **hydrALAZINE HCL** 25 MG TAB PO SCH (21:06)
[2019-03-19] VITALS (11 sets, daily range): BP systolic 127–160; BP diastolic 60–78; O2SAT 95–97
[2019-03-19 05:49] LABS: HEMATOCRIT 28.8 % (42.0-52.0); HEMOGLOBIN 8.3 g/dl (13.5-17.5); MEAN CORPUSCULAR HEMOGLOBIN 23.1 pg (27.0-33.0); MEAN CORPUSCULAR HGB CONC 28.8 g/dl (32.0-36.5); MEAN CORPUSCULAR VOLUME 80.2 fl (80.0-96.0); PLATELET COUNT, AUTOMATED 238 10^3/uL (150-450); RED BLOOD COUNT 3.59 10^6/uL (4.30-6.10); WHITE BLOOD COUNT 7.5 10^3/uL (4.0-10.0)
[2019-03-19 06:18] LABS: CALCIUM LEVEL 8.6 MG/DL (8.8-10.2); CREATININE FOR GFR 1.3 MG/DL (0.70-1.30); GLOMERULAR FILTRATION RATE 57.9 (>42); MAGNESIUM LEVEL 2.1 MG/DL (1.8-2.4); POTASSIUM SERUM 4.3 MEQ/L (3.5-5.1)
[2019-03-19] MEDS: FUROSEMIDE 100 MG/10 ML VIAL (J1940) IV SCH ×2 (08:21)
[2019-03-19] MEDS: GABAPENTIN 100 MG CAP PO SCH ×2 (08:21→21:33)
[2019-03-19] MEDS: ASPIRIN 81 MG ENTERIC TAB PO SCH (08:21)
[2019-03-19] MEDS: ISOSORBIDE MON. (IMDUR) 30 MG XR TAB PO SCH (08:22)
[2019-03-19] MEDS: **hydrALAZINE HCL** 25 MG TAB PO SCH (08:22)
[2019-03-19] MEDS: POTASSIUM CHLORIDE 10 MEQ SR TABLET PO SCH ×2 (08:22→21:33)
[2019-03-19] MEDS: FLUoxetine 20 MG CAP PO SCH (08:22)
[2019-03-19] MEDS: CARVedilol 6.25 MG TAB PO SCH (08:22)
[2019-03-19] MEDS: PANTOPRAZOLE 40MG TAB (PROTONIX) PO SCH (08:22)
[2019-03-19] MEDS: HumaLOG INSULIN (NovoLOG) PER UNIT SC SCH ×4 (08:23→21:00)
[2019-03-19] MEDS: SPIRONOLACTONE 12.5MG PER 1/2 TABLET PO SCH (08:23)
[2019-03-19] MEDS: LEVEMIR (INSULIN DETEMIR) 1 UNITS/0.01ML SC SCH ×2 (08:23→21:32)
--- NOTE | 2019-03-19 11:23 | IPN ---
DATE: 03/19/2019 TIME: 10:20 a.m. SUBJECTIVE: The patient reports dyspnea with very minimal activity in the room. No dyspnea at rest. No orthopnea or paroxysmal nocturnal dyspnea (PND). No chest pain or chest discomfort. No palpitations. No dizziness or lightheadedness. He notices he still has edema in both legs, but that it is improving. PHYSICAL EXAMINATION: Pleasant, obese (BMI 36.9) man who is not in any respiratory or psychologic distress. Temperature 97.3, pulse 78 (regular), respiratory rate 20, blood pressure 140/64, oxygen saturation 98% on O2 3 liters per minute by nasal cannula. Weight today was recorded as 119.9 kg, which is decreased from 124.7 kg recorded the day before. Input and output for the 24 hours of 03/18/2019 showed the patient to be net negative 3,330 mL. Jugular venous pulsations were to the angle of the jaw with the patient sitting at 90 degrees. Respiratory expansion effort was fair. No crackles or wheezes. First and second heart sounds normal. Grade 2 systolic ejection murmur right second interspace. No S3 or S4. No diastolic murmurs appreciated. Abdomen was soft, nontender. Abdomen was obese. No hepatosplenomegaly or other organomegaly. Liver span difficult to assess due to abdominal obesity. Mood and affect was normal. Speech was normal. Stasis dermatitis was present in both legs. 2 mm of pitting edema was present in both legs at mid and distal tibial levels bilaterally. Laboratory work 03/19/2019 was reviewed: Sodium 139, potassium 4.3, chloride 100, CO2 33, BUN 39, creatinine 1.30, estimated GFR 57.9, glucose 233, magnesium 2.1. ASSESSMENT/PLAN: 1. Diastolic heart failure (acute on chronic). LVEF on echocardiogram 45%. Diastolic heart failure due to coronary artery disease with prior anteroseptal-apical myocardial infarct, at least as judged by the results of the echocardiogram Doppler. NYHA functional class III. He remains decompensated. He has generated an excellent net negative fluid balance. Heart rate and blood pressure above target. I will increase the dosage of carvedilol. I will switch him from furosemide IV to torsemide p.o. Continue hydralazine 25 mg three times a day. Continue spironolactone 12.5 mg daily. I will increase the dosage of valsartan to 160 mg twice a day. Continue potassium chloride at the current dosage. 2. CAD ([place] vessel, without angina). As noted above, I will increase the dosage of valsartan and carvedilol. Continue aspirin 81 mg/d. Continue atorvastatin 40 mg at bedtime. Continue isosorbide mononitrate extended released to 30 mg daily. Continue nitroglycerin sublingual as needed. 3. Status post CABG 2015. As per CAD category above. Midline sternal scar was noted on physical examination. 4. Old myocardial infarct. Old myocardial infarct is suggested by regional wall motion abnormalities observed on the recent echocardiogram Doppler. 5. Moderate mitral regurgitation (nonrheumatic). Stable. 6. Status post aortic valve replacement with bioprosthesis 201516. Grade 2 systolic ejection murmur. No hemodynamically significant narrowing. No aortic regurgitation. Stable. 7. Systemic hypertension. Blood pressure presently uncontrolled. I will increase the dosage of carvedilol and valsartan. Continue hydralazine and isosorbide mononitrate. As noted above, he will be switched from IV furosemide to torsemide p.o. 8. Hyperlipidemia. The patient has been switched to intensive statin therapy by Dr. Velez (atorvastatin 40 mg at bedtime). Continue with DASH diet.
--- NOTE | 2019-03-19 13:15 | IPNPDOC ---
Subjective Date Seen The patient was seen on 03/19/19. Subjective Chief Complaint/HPI Sitting in chair. Swelling about the same in the lower extremities, but improved in upper extremities. Objective Physical Examination General Exam: Positive: Alert, No Acute Distress Eye Exam: Positive: PERRLA Neck Exam: Positive: Supple, JVD Chest Exam: Positive: Normal air movement, Diminished Heart Exam: Positive: Rate Normal, Normal S1, Normal S2, Murmurs Abdomen Exam: Positive: Normal bowel sounds Extremity Exam: Positive: Edema (4+), Other (anasarca) Neuro Exam: Positive: Normal Speech Psych Exam: Positive: Mental status NL Assessment /Plan Assessment # Acute on chronic diastolic CHF with Anasarca - Cardiology following, changing to torsemide today - daily labs ( mag, K, and creat remain stable) - renal uls w/ doppler result reviewed and are normal w/o JOSEFINA # CKD stage 3 - creat improved # Anemia with + guaiac - monitor CBC daily - iron studies indeterminate - EGD/C-scope as an outpatient if Hgb remains stable # IDDM2 - resume carb diet - continue SS - increase levemir 15 units bid Plan/VTE VTE Prophylaxis Ordered?: No VTE Exclusion Mechanical Proph: N/A:VTE Prophy Ordered VTE Exclusion Pharmacological: N/A:VTE Prophy Ordered VS, I&O, 24H, Fishbone Vital Signs/I&O Vital Signs Date Time Temp Pulse Resp B/P (MAP) Pulse Ox O2 Delivery O2 Flow Rate FiO2 03/19/19 12:00 97.8 65 18 132/66 (88) 98 Nasal Cannula 3.0 I&O- Last 24 Hours up to 6 AM 03/19/19 06:00 Intake Total 570 ml Output Total 3750 ml Balance -3180 ml Laboratory Data 24H LABS Laboratory Tests 2 03/18/19 17:11: Bedside Glucose (Misc Panel) 203H 03/18/19 21:02: Bedside Glucose (Misc Panel) 257H 03/19/19 05:23: Nucleated Red Blood Cells % (auto) 0.0, Anion Gap 6L, Glomerular Filtration Rate 57.9, Calcium Level 8.6L, Magnesium Level 2.1 03/19/19 11:47: Bedside Glucose (Misc Panel) 264H CBC/BMP Laboratory Tests 03/19/19 05:23 Microbiology Microbiology 03/12/19 Urine Culture - Final, Complete 03/11/19 Stool Occult Blood (BOBBY) - Final, Complete 03/09/19 Blood Culture - Final, Complete NO GROWTH AFTER 5 DAYS 03/09/19 Respiratory Virus Panel (PCR) (BOBBY) - Final, Complete 03/09/19 Blood Culture - Final, Complete NO GROWTH AFTER 5 DAYS JANETTE CUI MD Mar 19, 2019 13:15
[2019-03-19] MEDS: TORSEMIDE 20 MG TAB PO SCH (17:27)
[2019-03-19] MEDS: VANICREAM MOISTURIZING SKIN CREAM 113GM TUBE TOP SCH (21:32)
[2019-03-19] MEDS: CARVedilol 12.5 MG TAB PO SCH (21:32)
[2019-03-19] MEDS: VALSARTAN 80 MG TAB (DIOVAN) PO SCH (21:33)
[2019-03-19] MEDS: ATORVASTATIN 20 MG TAB PO SCH (21:33)
[2019-03-19] MEDS: ACETAMINOPHEN TAB 650MG DOSE (2X325MG) PO PRN (21:34)
[2019-03-20] VITALS (7 sets, daily range): BP systolic 126–158; BP diastolic 59–74
[2019-03-20 06:10] LABS: HEMATOCRIT 27.2 % (42.0-52.0); MEAN CORPUSCULAR HEMOGLOBIN 23.5 pg (27.0-33.0); MEAN CORPUSCULAR HGB CONC 29.4 g/dl (32.0-36.5); MEAN CORPUSCULAR VOLUME 79.8 fl (80.0-96.0); PLATELET COUNT, AUTOMATED 218 10^3/uL (150-450); RED BLOOD COUNT 3.41 10^6/uL (4.30-6.10)
[2019-03-20 06:29] LABS: CALCIUM LEVEL 8.3 MG/DL (8.8-10.2); CREATININE FOR GFR 1.31 MG/DL (0.70-1.30); GLOMERULAR FILTRATION RATE 57.4 (>42); MAGNESIUM LEVEL 2.1 MG/DL (1.8-2.4); POTASSIUM SERUM 4.7 MEQ/L (3.5-5.1)
[2019-03-20] MEDS: ASPIRIN 81 MG ENTERIC TAB PO SCH (09:00)
[2019-03-20] MEDS: TORSEMIDE 20 MG TAB PO SCH ×2 (09:01→17:29)
[2019-03-20] MEDS: POTASSIUM CHLORIDE 10 MEQ SR TABLET PO SCH ×2 (09:01→21:28)
[2019-03-20] MEDS: PANTOPRAZOLE 40MG TAB (PROTONIX) PO SCH (09:01)
[2019-03-20] MEDS: CARVedilol 12.5 MG TAB PO SCH ×2 (09:01→21:28)
[2019-03-20] MEDS: GABAPENTIN 100 MG CAP PO SCH ×2 (09:01→21:28)
[2019-03-20] MEDS: ISOSORBIDE MON. (IMDUR) 30 MG XR TAB PO SCH (09:01)
[2019-03-20] MEDS: FLUoxetine 20 MG CAP PO SCH (09:01)
[2019-03-20] MEDS: SPIRONOLACTONE 12.5MG PER 1/2 TABLET PO SCH (09:02)
[2019-03-20] MEDS: HumaLOG INSULIN (NovoLOG) PER UNIT SC SCH ×4 (09:02→21:00)
[2019-03-20] MEDS: LEVEMIR (INSULIN DETEMIR) 1 UNITS/0.01ML SC SCH ×2 (09:03→21:27)
[2019-03-20] MEDS: VANICREAM MOISTURIZING SKIN CREAM 113GM TUBE TOP SCH ×2 (09:03→21:29)
--- NOTE | 2019-03-20 10:33 | IPNPDOC ---
Subjective Date Seen The patient was seen on 03/20/19. Subjective Chief Complaint/HPI Awoken from sleep. No orthopnea. Uneventful night. No major improvement in LE swelling. Objective Physical Examination General Exam: Positive: Alert, No Acute Distress Eye Exam: Positive: PERRLA Neck Exam: Positive: Supple, JVD Chest Exam: Positive: Normal air movement, Diminished Heart Exam: Positive: Rate Normal, Normal S1, Normal S2, Murmurs Abdomen Exam: Positive: Normal bowel sounds Extremity Exam: Positive: Edema (4+), Other (anasarca) Neuro Exam: Positive: Normal Speech Psych Exam: Positive: Mental status NL Assessment /Plan Assessment # Acute on chronic diastolic CHF with Anasarca - torsemide 20 mg bid - Still has anasarca of lower extremities - daily labs ( mag, K, and creat remain stable) - renal uls w/ doppler result reviewed and is normal w/o JOSEFINA # CKD stage 3 - creat improved, but slight elevated this morning with addition of torsemide # Microcytic microchromic Anemia with + guaiac - monitor CBC daily - iron studies indeterminate - iron tab daily - EGD/C-scope as an outpatient if Hgb remains stable # IDDM2 - resume carb diet - continue SS - increase levemir 20 units bid, BG > 200 gm/dl over past 24 hours Plan/VTE VTE Prophylaxis Ordered?: No VTE Exclusion Mechanical Proph: N/A:VTE Prophy Ordered VTE Exclusion Pharmacological: N/A:VTE Prophy Ordered VS, I&O, 24H, Fishbone Vital Signs/I&O Vital Signs Date Time Temp Pulse Resp B/P (MAP) Pulse Ox O2 Delivery O2 Flow Rate FiO2 03/20/19 08:00 97.7 72 18 141/67 (91) 96 Nasal Cannula 3.0 I&O- Last 24 Hours up to 6 AM 03/20/19 06:00 Intake Total 1080 ml Output Total 1850 ml Balance -770 ml Laboratory Data 24H LABS Laboratory Tests 2 03/19/19 11:47: Bedside Glucose (Misc Panel) 264H 03/19/19 16:38: Bedside Glucose (Misc Panel) 155H 03/19/19 21:23: Bedside Glucose (Misc Panel) 204H 03/20/19 05:27: Nucleated Red Blood Cells % (auto) 0.0, Anion Gap 5L, Glomerular Filtration Rate 57.4, Calcium Level 8.3L, Magnesium Level 2.1 CBC/BMP Laboratory Tests 03/20/19 05:27 Microbiology Microbiology 03/12/19 Urine Culture - Final, Complete 03/11/19 Stool Occult Blood (BOBBY) - Final, Complete JANETTE CUI MD Mar 20, 2019 10:33
--- NOTE | 2019-03-20 12:14 | IPN ---
DATE: 03/20/2019 TIME: 11:31 a.m. SUBJECTIVE: The patient feels that his exertional shortness of breath (SOB) is progressively becoming less. He reports that he is not short of breath ambulating short distances in his room today. No orthopnea or paroxysmal nocturnal dyspnea (PND). No chest pain or chest discomfort. No palpitations. No dizziness or lightheadedness. No nausea. Overall, he reports feeling fairly well. He reports the intensity of his peripheral neuropathy is a little bit improved over what it was from a few days ago. PHYSICAL EXAMINATION: Pleasant, obese man not in any respiratory or psychologic distress. He appears his chronologic age. Temperature 97.7, pulse 72 (regular), respiratory rate 18, blood pressure 141/67, oxygen saturation 96% on O2 3 liters per minute by nasal cannula. Jugular venous pulsations were at 8 cm. 1 mm pitting edema pretibial and distal tibial level bilaterally. First heart sound was mildly diminished. Normal S2. No S3, S4, or murmurs appreciated. Respiratory expansion effort was good. No crackles or wheezes. Abdomen was obese, soft, nontender with normal bowel sounds. Mood and affect was normal. Speech was normal. Input and output for the 24 hours of 03/19/2019 showed the patient to be net negative 720 mL. Weight today was 120.2 kg. Laboratory work 03/20/2019 was reviewed: Sodium 142, potassium 4.7, chloride 102, CO2 35, BUN 36, creatinine 1.31, estimated GFR 57.4, glucose 146, magnesium 2.1. ASSESSMENT/PLAN: 1. Heart failure (acute on chronic). Currently NYHA functional class II-III. He has mildly decompensated on examination, but overall shows improvement. LVEF 45% with regional wall motion abnormality suggestive of prior infarction in the left anterior descending coronary artery distribution. Continue carvedilol 12.5 mg twice a day, valsartan 320 mg at bedtime, torsemide 20 mg twice a day, spironolactone 12.5 daily, potassium chloride 20 mEq twice a day, isosorbide mononitrate 30 mg daily. 2. CAD ([place] vessel, without angina). CCS class I. Evidence of prior old LAD distribution myocardial infarct on echocardiogram. Status post coronary artery bypass grafting (CABG) 2015. Continue medical therapy which currently consists of aspirin 81 mg daily, carvedilol 12.5 mg twice a day, isosorbide mononitrate 30 mg daily, Nitrostat as needed, valsartan 320 mg at bedtime. 3. Old myocardial infarct. As per CAD category above. 4. Status post CABG 2016. As per CAD category above. 5. Nonrheumatic mitral valve disease with moderate mitral regurgitation. Stable. 6. Status post aortic valve replacement bioprosthesis 2016. Hemodynamically stable as per recent echocardiogram Doppler. Recommend infective endocarditis prophylaxis prior to dental procedures likely to produce transient bacteremia. 7. Systemic hypertension. Recent blood pressure trends show mostly mildly elevated systolic BP with controlled diastolic BP. I anticipate his blood pressure will continue to improve as he continues to diurese. Continue the current antihypertensive regimen consisting of carvedilol 12.5 mg twice a day, isosorbide mononitrate 30 mg/d, spironolactone 12.5 mg/d, torsemide 20 mg twice a day, valsartan 320 mg at bedtime. 8. Hyperlipidemia. Continue atorvastatin [address] Nakul Velez resumes cardiac care of this patient tomorrow.
[2019-03-20] MEDS: IRON POLYSAC (NIFEREX) 150 MG CAP PO SCH (13:27)
[2019-03-20] MEDS: ATORVASTATIN 20 MG TAB PO SCH (21:28)
[2019-03-20] MEDS: VALSARTAN 80 MG TAB (DIOVAN) PO SCH (21:28)
[2019-03-21 04:00] VITALS: BP 139/65
[2019-03-21 05:37] LABS: HEMATOCRIT 28.5 % (42.0-52.0); HEMOGLOBIN 8.2 g/dl (13.5-17.5); MEAN CORPUSCULAR HEMOGLOBIN 23.1 pg (27.0-33.0); MEAN CORPUSCULAR HGB CONC 28.8 g/dl (32.0-36.5); MEAN CORPUSCULAR VOLUME 80.3 fl (80.0-96.0); PLATELET COUNT, AUTOMATED 207 10^3/uL (150-450); RED BLOOD COUNT 3.55 10^6/uL (4.30-6.10)
[2019-03-21 06:07] LABS: CALCIUM LEVEL 8.3 MG/DL (8.8-10.2); CREATININE FOR GFR 1.37 MG/DL (0.70-1.30); GLOMERULAR FILTRATION RATE 54.5 (>42); MAGNESIUM LEVEL 2.3 MG/DL (1.8-2.4); POTASSIUM SERUM 4.7 MEQ/L (3.5-5.1)
[2019-03-21] MEDS: HumaLOG INSULIN (NovoLOG) PER UNIT SC SCH ×4 (07:30→21:00)
[2019-03-21 07:53] VITALS: BP 159/74
--- NOTE | 2019-03-21 08:41 | IPN ---
DATE OF SERVICE: 03/21/2019 Mr. Rosario is feeling better today than he did on Thursday. He had a very good diuretic response, especially on and Thursday was recorded very favorable. Dr. Veras made additional changes in his medications. He advanced the dose of ARB and discontinued hydralazine with an additional diuresis. His blood pressure is now better controlled. He continues to improve every day, even though the dose of diuretics was significantly reduced. He denies any chest pain. He feels the shortness of breath has improved. There was no additional GI bleeding. Vital Signs: Blood pressure 159/74. Heart rate has been 60s and 70s. He is afebrile. Saturation 96% on 3 liters. His jugular venous pulse (JVP) is still very high. Lungs though are relatively clear with the exception of diminished breath over both bases. Heart exam reveals irregular rhythm. I do not appreciate any gallop. There is a systolic ejection murmur over the aortic valve unchanged from last week. Abdomen is soft. No obvious guarding or tenderness. I do not appreciate convincing evidence for ascites based on physical examination. There is still very prominent bilateral peripheral edema. Laboratory-quintero, hemoglobin is 8.2, hematocrit 28, platelet count 207,000. Basic metabolic panel with sodium 141, potassium 4.7, BUN 34, creatinine 1.4, GFR 54, and glucose 115 ASSESSMENT/PLAN: Mr. Rosario is a 69-year-old man who has known ischemic heart disease with history of coronary artery bypass graft (CABG) and aortic valve replacement with bioprosthesis. He presented with congestive heart failure and GI bleeding. I delayed the plan for colonoscopy last week because the patient was grossly decompensated. Even though his compensation is still not good, at this point I would not mind if the colonoscopy went ahead. As far as the management of heart failure is concerned, I am glad that he tolerated the medication changes made by Dr. Veras over the weekend. I am going to advance the dose of torsemide further because he certainly needs additional diuresis, but I am happy with his progress.
[2019-03-21] MEDS: SPIRONOLACTONE 12.5MG PER 1/2 TABLET PO SCH (09:03)
[2019-03-21] MEDS: ISOSORBIDE MON. (IMDUR) 30 MG XR TAB PO SCH (09:04)
[2019-03-21] MEDS: ASPIRIN 81 MG ENTERIC TAB PO SCH (09:04)
[2019-03-21] MEDS: CARVedilol 12.5 MG TAB PO SCH ×2 (09:04→21:35)
[2019-03-21] MEDS: FLUoxetine 20 MG CAP PO SCH (09:05)
[2019-03-21] MEDS: IRON POLYSAC (NIFEREX) 150 MG CAP PO SCH (09:05)
[2019-03-21] MEDS: PANTOPRAZOLE 40MG TAB (PROTONIX) PO SCH (09:05)
[2019-03-21] MEDS: GABAPENTIN 100 MG CAP PO SCH ×2 (09:05→21:35)
[2019-03-21] MEDS: VANICREAM MOISTURIZING SKIN CREAM 113GM TUBE TOP SCH ×2 (09:06→21:35)
[2019-03-21] MEDS: LEVEMIR (INSULIN DETEMIR) 1 UNITS/0.01ML SC SCH ×2 (09:06→21:34)
[2019-03-21] MEDS: POTASSIUM CHLORIDE 10 MEQ SR TABLET PO SCH ×2 (09:12→21:34)
[2019-03-21 12:00] VITALS: BP 174/78
[2019-03-21] MEDS: TORSEMIDE 20 MG TAB PO SCH (13:03)
[2019-03-21 16:00] VITALS: BP 142/66
--- NOTE | 2019-03-21 16:20 | IPNPDOC ---
Subjective Date Seen The patient was seen on 03/21/19. Subjective Chief Complaint/HPI Gilberto is lying in bed w/o distress, he slept ok. He feels better from a respiratory standpoint, and has done well with PT during his stay. Objective Physical Examination General Exam: Positive: No Acute Distress Eye Exam: Positive: PERRLA Neck Exam: Positive: Supple Chest Exam: Positive: Normal air movement, Diminished Heart Exam: Positive: Rate Normal, Normal S1, Normal S2, Murmurs Abdomen Exam: Positive: Normal bowel sounds Extremity Exam: Positive: Edema (4+), Other (anasarca) Neuro Exam: Positive: Normal Speech Psych Exam: Positive: Mental status NL Assessment /Plan Assessment # Acute on chronic diastolic CHF with Anasarca - torsemide increased to 40 mg bid from 20 mg bid this am - can likely go home in next 1-2 days if kidneys remain stable with this dose of diuretic - Still has prominent anasarca of lower extremities - daily labs ( mag, K, and creat remain stable) - renal uls w/ doppler result reviewed and is normal w/o JOSEFINA # CKD stage 3 - creat improved, but BUN slight elevated this morning with addition of torsemide # Microcytic microchromic Anemia with + guaiac - monitor CBC daily - iron studies indeterminate - iron tab daily - EGD/C-scope as an outpatient if Hgb remains stable, Dr. Olivo on consult. # IDDM2 - resume carb diet - continue SS - BG better controlled on levemir 20 units bid, continue to uptitrate as tolerated Plan/VTE VTE Prophylaxis Ordered?: No VTE Exclusion Mechanical Proph: N/A:VTE Prophy Ordered VTE Exclusion Pharmacological: N/A:VTE Prophy Ordered VS, I&O, 24H, Fishbone Vital Signs/I&O Vital Signs Date Time Temp Pulse Resp B/P (MAP) Pulse Ox O2 Delivery O2 Flow Rate FiO2 03/21/19 12:00 98.1 63 20 174/78 (110) 99 Nasal Cannula 3.0 I&O- Last 24 Hours up to 6 AM 03/21/19 06:00 Intake Total 960 ml Output Total 2675 ml Balance -1715 ml Laboratory Data 24H LABS Laboratory Tests 2 03/20/19 16:54: Bedside Glucose (Misc Panel) 165H 03/20/19 21:05: Bedside Glucose (Misc Panel) 157H 03/21/19 05:09: Nucleated Red Blood Cells % (auto) 0.0, Anion Gap 2L, Glomerular Filtration Rate 54.5, Calcium Level 8.3L, Magnesium Level 2.3 03/21/19 12:52: Bedside Glucose (Misc Panel) 188H CBC/BMP Laboratory Tests 03/21/19 05:09 Microbiology Microbiology 03/12/19 Urine Culture - Final, Complete 03/11/19 Stool Occult Blood (BOBBY) - Final, Complete JANETTE CUI MD Mar 21, 2019 16:20
[2019-03-21 20:00] VITALS: BP 160/70
[2019-03-21] MEDS: VALSARTAN 80 MG TAB (DIOVAN) PO SCH (21:34)
[2019-03-21] MEDS: ATORVASTATIN 20 MG TAB PO SCH (21:34)
[2019-03-21 23:59] VITALS: BP 148/70
[2019-03-22] MEDS: TORSEMIDE 20 MG TAB PO SCH ×2 (00:01→13:01)
[2019-03-22 04:00] VITALS: BP 143/68
[2019-03-22 05:27] LABS: HEMATOCRIT 27.7 % (42.0-52.0); HEMOGLOBIN 8.3 g/dl (13.5-17.5); MEAN CORPUSCULAR HEMOGLOBIN 23.9 pg (27.0-33.0); MEAN CORPUSCULAR VOLUME 79.6 fl (80.0-96.0); PLATELET COUNT, AUTOMATED 208 10^3/uL (150-450); RED BLOOD COUNT 3.48 10^6/uL (4.30-6.10); WHITE BLOOD COUNT 7.1 10^3/uL (4.0-10.0)
[2019-03-22 05:56] LABS: CALCIUM LEVEL 8.5 MG/DL (8.8-10.2); CREATININE FOR GFR 1.33 MG/DL (0.70-1.30); GLOMERULAR FILTRATION RATE 56.4 (>42); MAGNESIUM LEVEL 2.2 MG/DL (1.8-2.4); POTASSIUM SERUM 4.7 MEQ/L (3.5-5.1)
[2019-03-22 08:00] VITALS: BP 147/67
[2019-03-22] MEDS: HumaLOG INSULIN (NovoLOG) PER UNIT SC SCH ×4 (08:00→21:00)
--- NOTE | 2019-03-22 08:18 | IPN ---
DATE: 03/22/2019 Mr. Rosario reports and improved dyspnea. He feels that as the fluid level is slowly improving that he is feeling overall better. Denies any chest pain. Vital signs: Blood pressure 146/68 and has been in a similar range for most of the time, heart rate in 60s to 80s, sinus rhythm, afebrile. Saturation 97% on 3 liters. Fluid balance yesterday was recorded as negative 2400. Weight is 118.4 which is about a kilogram less than yesterday. He is alert and oriented, appropriate. His jugular venous pulse (JVP) still very high though. Lungs reveal fine crackles and inspiratory crackles over both bases, more on the right than left. Heart exam regular rhythm. Unchanged systolic ejection murmur over the aortic valve. No gallop. Abdomen is obese but soft. There is still very prominent peripheral edema. LABORATORY: Basic metabolic panel - sodium 141, potassium 4.7, BUN 30, creatinine 1.3, glucose 109 and CBC hemoglobin 8.3, hematocrit 27, platelet count 208,000. ASSESSMENT/PLAN: Mr. Rosario is a 69-year-old man who has ischemic heart disease with history of bypass surgery 2 years ago and also history of aortic valve replacement with bioprosthesis. He presented with gastrointestinal (GI) bleed but simultaneously was found to have clear-cut volume overloaded state with very prominent heart failure. His ejection fraction (EF) is about 45% so it is not classical systolic or diastolic heart failure but the heart failure was intermediate ejection fraction. In the last few days since about Thursday he has had very good diuretic response and I will continue the same even though we are making good progress he still remains significantly volume overloaded and my opinion is to lose a lot of additional excessive fluid. As far as the GI bleeding is concerned as per my note yesterday, I would not object to proceeding with prep for colonoscopy at this point and coronary artery disease has been stable, there are no ischemic signs or symptoms.
--- NOTE | 2019-03-22 09:07 | REP ---
PA and lateral chest: Comparison: 11/28/2019. The interstitial coarsening identified previously has resolved. There is a right pleural effusion, unchanged. The Cardiac size is upper normal. Sternotomy wires and prosthetic aortic valve are again identified, unchanged. Impression: Improved interstitial pattern. Right pleural effusion, unchanged. Electronically Signed by Denys Mitchell MD 03/22/2019 08:58 A
[2019-03-22] MEDS ORDERED: ALDA25TA2 PO (09:44)
[2019-03-22] MEDS ORDERED: VALS1TAB66 PO (09:44)
[2019-03-22] MEDS ORDERED: TORS20TA2 PO (09:44)
[2019-03-22] MEDS ORDERED: CARV12.5 PO (09:44)
[2019-03-22] MEDS ORDERED: TRES1INJ2 SC (09:47)
[2019-03-22] MEDS: SPIRONOLACTONE 12.5MG PER 1/2 TABLET PO SCH (09:48)
[2019-03-22] MEDS: ASPIRIN 81 MG ENTERIC TAB PO SCH (09:48)
[2019-03-22] MEDS: PANTOPRAZOLE 40MG TAB (PROTONIX) PO SCH (09:48)
[2019-03-22] MEDS: CARVedilol 12.5 MG TAB PO SCH ×2 (09:48→22:55)
[2019-03-22] MEDS: GABAPENTIN 100 MG CAP PO SCH ×2 (09:49→22:56)
[2019-03-22] MEDS: POTASSIUM CHLORIDE 10 MEQ SR TABLET PO SCH ×2 (09:49→22:55)
[2019-03-22] MEDS: FLUoxetine 20 MG CAP PO SCH (09:49)
[2019-03-22] MEDS: IRON POLYSAC (NIFEREX) 150 MG CAP PO SCH (09:49)
[2019-03-22] MEDS: VANICREAM MOISTURIZING SKIN CREAM 113GM TUBE TOP SCH ×2 (09:50→22:57)
[2019-03-22] MEDS: ISOSORBIDE MON. (IMDUR) 30 MG XR TAB PO SCH (09:50)
[2019-03-22] MEDS: LEVEMIR (INSULIN DETEMIR) 1 UNITS/0.01ML SC SCH ×2 (09:51→22:57)
--- NOTE | 2019-03-22 09:57 | IPN ---
DATE OF SERVICE: 03/22/2019 The patient denies any chest pain, pressure, tightness, lightheadedness. He does complain of slight dizziness when he first gets up and has to take a few seconds to reacclimate. The patient ambulated 150 feet yesterday without any shortness of breath or dyspnea on exertion. No paroxysmal nocturnal dyspnea (PND) or orthopnea. The patient sleeps with a 30-degree head-of-bed elevation. He denies any coffee-ground emesis, hematemesis, bright red blood per rectum, melena, or black tarry stools. No epigastric pain, nausea, vomiting, or sense of pending doom. Denies any generalized weakness. Per Dr. Velez, the patient is currently optimized from the heart failure standpoint and is on torsemide 40 by mouth every 12 hours with good diuresis of 1.5 liters since midnight. The patient has been in net negative balance with peak admission weight of 128.2 kg and current weight of 118.4 kg. Still with 3+ edema to the sacrum. The patient denies any abdominal distention or abdominal fullness, early satiety, epigastric pain, nausea, or vomiting. Tolerating his diet well. Input and output: Input of 720, output 3125, negative 2405 on 03/21/2019. On 03/22/2019 since midnight 120 input, output of 1700, negative 1.580 liters. Current weight is 118.4 kg. Generally, the patient is answering questions appropriately. No respiratory distress. He had no conversational dyspnea. Mild jugular venous distention (JVD). No thyromegaly, cervical lymphadenopathy with moist mucous membranes. Lungs are clear to auscultation. There is no wheezing or rales. Breath sounds are diminished at bilateral bases. Heart: Irregular, systolic ejection murmur in the aortic area, 3/6. Nondisplaced point of maximal impulse. Abdomen: Is obese, soft, nontender, nondistended. No fluid wave. Extremities: 3+ pitting edema to the sacrum. LABORATORY DATA: White count 7.1, hemoglobin 8.3, hematocrit 27.7, platelet count of 208. Sodium 141, potassium 4.7, chloride 101, bicarbonate 36, BUN 30, creatinine 1.33, glucose of 109, baseline creatinine is 1.3 to 1.4. MICROBIOLOGY: Urine culture 03/12/2019: No growth. Respiratory panel: Is negative two sets. Blood cultures: Are negative. Hemoccult stool is positive. IMAGING STUDIES: Renal ultrasound 03/18/2019 shows no Doppler evidence to suggest renal artery stenosis. Chest x-ray 03/10/2019: Improved congestive heart failure (CHF) pattern. ASSESSMENT AND PLAN: This is a 69-year-old male with history of moderate mitral regurgitation, mild tricuspid regurgitation, ejection fraction (EF) of 45%, with left ventricular hypertrophy, decreased systolic ejection function with akinesis of apical cap segment hypokinesis midanterior segment with mild aortic stenosis, coronary artery disease, coronary artery bypass graft (CABG) and aortic valve replacement in 2016, followed by Dr. Gomez in [place], presented to the emergency room (ER) with worsening shortness of breath, found to be in CHF with rectal bleeding requiring 2 units of red blood cell (RBC) transfusion during this admission. ACUTE ISSUES: Are: 1. Congestive heart failure, acute decompensated systolic and diastolic dysfunction with low ejection fraction. Currently on torsemide 40 mg every 12 hours with good net negative balance. The patient's weight has significantly decreased since admission. Currently managed by Dr. Nakul Velez, benzene still utility operator, and cleared for endoscopy. 2. Gastrointestinal (GI) bleed. The patient's Plavix has been discontinued. He is currently continued on aspirin. Dr. Olivo had been previously consulted for endoscopy and colonoscopy. Per Dr. Nakul Velez, the patient is medically stable to undergo endoscopy. 3. History of coronary artery disease, history of cerebrovascular accident (CVA). Currently with GI bleed. Therefore, the patient's Plavix has been discontinued. He is currently just on aspirin. 4. Acute blood loss anemia secondary to gastrointestinal bleed. GI has been consulted for endoscopy. The patient has been cleared by cardiology to proceed with evaluation. The patient is agreeable to this. 5. Chronic kidney disease. Currently, at baseline creatinine on hydralazine currently. No renal artery stenosis on recent renal ultrasound with Doppler. The patient has been resumed on valsartan 320 nightly. 6. Type 2 diabetes. Currently, on insulin sliding scale. Glucose levels are 109-233. Currently 127, 128, and 188 on recent fingersticks. 7. Deep venous thrombosis (DVT) prophylaxis due to acute gastrointestinal bleed. The patient is currently just on valsartan. 8. Hypertension with blood pressure of 143-158. Managed by benzene still utility operator. Currently on valsartan and spironolactone and Imdur. MTDD
[2019-03-22 12:00] VITALS: BP 143/70
[2019-03-22 16:00] VITALS: BP 140/68
[2019-03-22 20:00] VITALS: BP 110/75
[2019-03-22] MEDS: ATORVASTATIN 20 MG TAB PO SCH (22:52)
[2019-03-22] MEDS: VALSARTAN 80 MG TAB (DIOVAN) PO SCH (22:54)
[2019-03-22 23:59] VITALS: BP 158/76
[2019-03-23] MEDS: TORSEMIDE 20 MG TAB PO SCH ×2 (00:24→12:52)
[2019-03-23 04:00] VITALS: BP 161/75
[2019-03-23 05:12] LABS: HEMATOCRIT 28.6 % (42.0-52.0); HEMOGLOBIN 8.3 g/dl (13.5-17.5); MEAN CORPUSCULAR HEMOGLOBIN 23.6 pg (27.0-33.0); MEAN CORPUSCULAR VOLUME 81.5 fl (80.0-96.0); PLATELET COUNT, AUTOMATED 209 10^3/uL (150-450); RED BLOOD COUNT 3.51 10^6/uL (4.30-6.10); WHITE BLOOD COUNT 7.1 10^3/uL (4.0-10.0)
[2019-03-23 05:30] LABS: BLOOD UREA NITROGEN 24 MG/DL (7-18); CALCIUM LEVEL 8.4 MG/DL (8.8-10.2); CARBON DIOXIDE LEVEL 37 MEQ/L (21-32); CHLORIDE LEVEL 100 MEQ/L (98-107); CREATININE FOR GFR 1.24 MG/DL (0.70-1.30); GLOMERULAR FILTRATION RATE > 60.0 (>42); GLUCOSE, FASTING 83 MG/DL (70-100); MAGNESIUM LEVEL 2.2 MG/DL (1.8-2.4); POTASSIUM SERUM 4.7 MEQ/L (3.5-5.1); SODIUM LEVEL 141 MEQ/L (136-145)
[2019-03-23] MEDS: HumaLOG INSULIN (NovoLOG) PER UNIT SC SCH ×4 (07:30→20:58)
[2019-03-23 08:00] VITALS: BP 144/72
--- NOTE | 2019-03-23 08:57 | IPN ---
DATE: 03/23/2019 Mr. Rosario reports additional improvement in his dyspnea. He was able to ambulate yesterday and apparently went over 100 feet without gross dyspnea that would make him stop. No chest pain. Vital Signs: Blood pressure 161/75, heart rate in 60s. He is afebrile. Saturation 97% on 3 liters. Fluid balance yesterday was recorded as negative 3200. Weight is 114 kg, which is 4 kg down from yesterday, which does not seem overly believable, but nevertheless the urine output is encouraging. His jugular venous pulse (JVP) though is still very high. Lungs reveal some end inspiratory rhonchi and crackles over both bases. Heart exam reveals regular rhythm. I do not appreciate much of gallop or rub. Murmur is unchanged. Abdomen is soft, nontender. He still has very prominent edema. Neurologically intact. Laboratories: Sodium 141, potassium 4.7, BUN 24, creatinine 1.2, and glucose 83. CBC: Hemoglobin 8.3, hematocrit 28.6, and platelet count 209,000. ASSESSMENT AND PLAN: Mr. Rosario is a 69-year-old man who has coronary artery disease, history of coronary artery bypass graft (CABG) and aortic valve replacement in 2016. He presented with gastrointestinal (GI) bleed but simultaneously was found to be in florid heart failure. His ejection fraction is about 45%, so it is intermediate range between systolic and diastolic. He has been responding to diuresis sufficiently, especially in the last several days. We are making good progress and is simultaneously his creatinine is improving. He still is very volume overloaded and way more fluid needs to be eliminated, but I am encouraged by his progress. As far as the blood pressure is concerned, he remains hypertensive but I still believe that with some more diuresis we will see additional improvement, and finally coronary artery disease has been clinically silent at this point.
[2019-03-23] MEDS: LEVEMIR (INSULIN DETEMIR) 1 UNITS/0.01ML SC SCH ×2 (10:15→20:55)
[2019-03-23] MEDS: ASPIRIN 81 MG ENTERIC TAB PO SCH (10:16)
[2019-03-23] MEDS: POTASSIUM CHLORIDE 10 MEQ SR TABLET PO SCH ×2 (10:16→20:56)
[2019-03-23] MEDS: PANTOPRAZOLE 40MG TAB (PROTONIX) PO SCH (10:16)
[2019-03-23] MEDS: GABAPENTIN 100 MG CAP PO SCH ×2 (10:16→20:57)
[2019-03-23] MEDS: IRON POLYSAC (NIFEREX) 150 MG CAP PO SCH (10:17)
[2019-03-23] MEDS: ISOSORBIDE MON. (IMDUR) 30 MG XR TAB PO SCH (10:17)
[2019-03-23] MEDS: CARVedilol 12.5 MG TAB PO SCH ×2 (10:17→20:57)
[2019-03-23] MEDS: FLUoxetine 20 MG CAP PO SCH (10:17)
[2019-03-23] MEDS: SPIRONOLACTONE 12.5MG PER 1/2 TABLET PO SCH (10:19)
[2019-03-23] MEDS: VANICREAM MOISTURIZING SKIN CREAM 113GM TUBE TOP SCH ×2 (10:20→20:57)
--- NOTE | 2019-03-23 11:42 | IPN ---
DATE OF SERVICE: 03/23/2019 The patient denies any chest pain, pressure, tightness. He still complains of some lightheadedness when he sits up quickly from bed to a standing position. No fall. The patient has diuresed 3 liters yesterday with decrease in weight from 118 to 114 kg on torsemide. The patient has had no fever, chills, or cough. Denies nausea, vomiting, epigastric pain. No constipation. Vital signs: Temperature 97.8, pulse 64, respiratory rate 16, blood pressure 161/75, 97% on 3 liters nasal cannula. Generally, the patient is awake, alert, oriented to person, place, and time. Speaking in full sentences. No conversational dyspnea or use of respiratory accessory muscles. Positive jugular venous distention (JVD). No thyromegaly, cervical lymphadenopathy, moist mucous membranes. Lungs: Diminished with bibasilar crackles. Heart: S1, S2, sinus rhythm. Abdomen: Is obese, soft, nontender, nondistended. Extremities: 2+ pitting edema to the sacrum, improved from yesterday with chronic venous stasis changes. Input and output: Input of 720, output of 3900, negative 3.18 liters yesterday. Weight has decreased from 118.4 kg to 114.4 kg. LABORATORY DATA: White count 7.1, hemoglobin 8.3, hematocrit 28, platelet count 209. Sodium 141, potassium 4.7, chloride 100, bicarbonate 37, BUN 24, creatinine 1.24, glucose of 83. Chest x-ray 03/22/2019: Improved interstitial pattern, right pleural effusion. ASSESSMENT AND PLAN: This is a 69-year-old male with past medical history significant for coronary artery disease (CAD), coronary artery bypass graft (CABG), aortic valve replacement in 2016, who sees Dr. Gomez in [place], resistant hypertension, history of cerebrovascular accident (CVA) with mild right-sided hemiparesis, prostate cancer treated with radiation, chronic kidney disease (CKD) III, obstructive sleep apnea, diabetes, and carotid artery disease with known occlusion of the right carotid internal artery, presented with shortness of breath, found to be in congestive heart failure. ACUTE ISSUES: Are as follows: Short of breath. Found to have congestive heart failure, as well as symptomatic anemia from gastrointestinal (GI) bleed. IMPRESSION: 1. Gastrointestinal bleed. The patient was medically optimized by Dr. Velez. Per Dr. Olivo, however, outpatient followup does not require inpatient so long as the patient's hemoglobin is stable and no overt GI bleed, the patient's anticoagulant has been discontinued. He is currently only on antiplatelet with aspirin. Currently on Protonix 40 daily. 2. Congestive heart failure, acute on chronic, decompensated with systolic and diastolic dysfunction, ejection fraction 45%. Currently on torsemide twice a day with net negative balance daily and decrease in weight from weight of 127.6 kg to current weight of 114.4 kg. Diuresis is managed by the patient hvac project manager, Dr. Velez. He is currently on a fluid restriction, strict intake and output (I and O) and daily weights, as well as salt restriction. 3. Coronary artery disease and coronary artery bypass graft. No acute coronary syndrome during this admission. The patient's decompensated heart failure thought to be due to water and salt dietary indiscretion. He is continued on his home medications of Coreg, valsartan, torsemide, and spironolactone, Lipitor aspirin, isosorbide. 4. Depression. On Prozac. 5. History of cerebrovascular accident (CVA) with mild right hemiparesis, stable. The patient has passed home safety evaluation and may be discharged home once he is euvolemic. He is continued on Lipitor and aspirin. 6. History of carotid artery stenosis. On atorvastatin and aspirin. Outpatient followup with vascular surgery. DISPOSITION: Pending clinical improvement, 3-4 days depending on cardiology clearance and euvolemia. MTDD
[2019-03-23 12:00] VITALS: BP 168/78
[2019-03-23 16:00] VITALS: BP_SYST 166; BP_DIAS 16; BP_DIAS 76
[2019-03-23 20:00] VITALS: BP 146/65
[2019-03-23] MEDS: VALSARTAN 80 MG TAB (DIOVAN) PO SCH (20:56)
[2019-03-23] MEDS: ATORVASTATIN 20 MG TAB PO SCH (20:57)
[2019-03-24] VITALS: BP 151/72
[2019-03-24 04:00] VITALS: BP 149/70
[2019-03-24 06:51] LABS: HEMATOCRIT 29.4 % (42.0-52.0); HEMOGLOBIN 8.5 g/dl (13.5-17.5); MEAN CORPUSCULAR HEMOGLOBIN 23.4 pg (27.0-33.0); MEAN CORPUSCULAR HGB CONC 28.9 g/dl (32.0-36.5); PLATELET COUNT, AUTOMATED 226 10^3/uL (150-450); RED BLOOD COUNT 3.63 10^6/uL (4.30-6.10); WHITE BLOOD COUNT 7.8 10^3/uL (4.0-10.0)
[2019-03-24 07:16] LABS: CALCIUM LEVEL 8.8 MG/DL (8.8-10.2); CREATININE FOR GFR 1.33 MG/DL (0.70-1.30); GLOMERULAR FILTRATION RATE 56.4 (>42); MAGNESIUM LEVEL 2.2 MG/DL (1.8-2.4); POTASSIUM SERUM 4.8 MEQ/L (3.5-5.1)
[2019-03-24 07:45] VITALS: BP 155/71
[2019-03-24] MEDS: HumaLOG INSULIN (NovoLOG) PER UNIT SC SCH ×4 (08:20→20:38)
--- NOTE | 2019-03-24 08:30 | IPN ---
DATE: 03/24/2019 Mr. Rosario is doing well. He clearly sees the benefit of diuresis. He is less short of breath. He is able to ambulate better. He denies any paroxysmal nocturnal dyspnea. Unfortunately, he still continues to have significant peripheral edema. PHYSICAL EXAMINATION: VITAL SIGNS: Blood pressure 154/71, heart rate in the 70s and 60s, remains in sinus rhythm, saturation 98% on 3 liters of oxygen. Fluid balance was recorded yesterday as negative 2300, he made almost 4 liters of urine. Weight is 114.2 kg, which is still similar to yesterday, but at least 12 kg decrease since admission. He is alert, oriented and appropriate. His jugular venous pressure is still high. Lungs are clear. Heart examination reveals regular rhythm without gallop, murmur of aortic valve is unchanged. Abdomen is soft, nontender. He still has peripheral edema around his knees, but it is becoming softer every day. LABORATORY DATA: Basic metabolic panel: Sodium 141, potassium 4.8, BUN 22, creatinine 1.3, glucose 110. CBC: Hemoglobin 8.5, hematocrit 29, platelet count 226,000. ASSESSMENT AND PLAN: Mr. Gilberto Rosario is a 69-year-old man with known coronary artery disease, history of coronary artery bypass graft (CABG) and aortic valve replacement and moderate left ventricular systolic dysfunction, who presented with gastrointestinal bleed, but also was found to be in florid heart failure with grossly volume overloaded state. He has been diuresing very successfully since approximately last Thursday. I am still not quite sure why he did not respond to intravenous diuretics prior to that. At this point, I think that we can continue the current treatment. He is still not euvolemic, but I would expect that he will be able to go home within approximately 36 to 48 hours. I do think that it is better to achieve euvolemic state before he goes home in order to improve the odds that he will not return to the hospital soon. As far as the coronary artery disease is concerned, he has not had any ischemic symptoms. Blood pressure still remains elevated, but it is gradually coming down and I do believe that it will improve once he diureses all the excessive volume. Finally, as far as the gastrointestinal bleed is concerned, I understand that a decision was made to not perform esophagogastroduodenoscopy (EGD)/colonoscopy during this hospitalization, but it will be done on an outpatient basis because his hemoglobin seems to be stable and if anything has been slightly trending up, I believe this is quite acceptable.
[2019-03-24] MEDS: SPIRONOLACTONE 12.5MG PER 1/2 TABLET PO SCH (09:01)
[2019-03-24] MEDS: ASPIRIN 81 MG ENTERIC TAB PO SCH (09:02)
[2019-03-24] MEDS: PANTOPRAZOLE 40MG TAB (PROTONIX) PO SCH (09:02)
[2019-03-24] MEDS: CARVedilol 12.5 MG TAB PO SCH ×2 (09:02→21:03)
[2019-03-24] MEDS: GABAPENTIN 100 MG CAP PO SCH ×2 (09:02→21:03)
[2019-03-24] MEDS: IRON POLYSAC (NIFEREX) 150 MG CAP PO SCH (09:03)
[2019-03-24] MEDS: POTASSIUM CHLORIDE 10 MEQ SR TABLET PO SCH ×2 (09:03→21:02)
[2019-03-24] MEDS: FLUoxetine 20 MG CAP PO SCH (09:03)
[2019-03-24] MEDS: LEVEMIR (INSULIN DETEMIR) 1 UNITS/0.01ML SC SCH ×2 (09:04→21:02)
[2019-03-24] MEDS: ISOSORBIDE MON. (IMDUR) 30 MG XR TAB PO SCH (09:04)
--- NOTE | 2019-03-24 09:34 | IPN ---
DATE OF SERVICE: 03/24/2019 SUBJECTIVE: The patient denies any fever, chills, cough, shortness of breath. The patient still gets a little bit dizzy when he tries to get up quickly and usually has to take his time from supine to a sitting position. The patient's lower extremity edema is much better. He says that he is ambulating well. He is eating well but not quite happy with the change in consistency of his diet due to his aspiration. The patient was scheduled for a swallow evaluation, modified barium, this morning, but he is agreeable to doing this. He has remained net negative balance with admission weight of 126.3 kg and current weight of 114.2 kg. He has noted decreasing edema in the lower extremities, increased mobility. He has passed a home safety evaluation but still requires 2-3 more days of diuresis per his nursing staff development coordinator, Dr. Velez. The patient otherwise denies any chest pain, pressure, or tightness. No falls. The patient denies nausea, vomiting, abdominal pain. The patient has had a bowel movement. Willing to try prune juice that is warmed up if more constipation persists. Tolerating his diet well. Coughs a little bit when he eats his diet. Currently, on a mechanical soft. The patient otherwise denies any fever or chills, depression, anxiety, upper or lower extremity weakness. The patient also complains of irritation around the [place] catheter site with a slight pain. Has lidocaine as needed. OBJECTIVE: PHYSICAL EXAMINATION: Vital signs: Temperature 97.4, pulse 70, respiratory rate 22, blood pressure 155/71, 98% on 3 liters nasal cannula. Generally, the patient is awake, alert, oriented to person, place, and time. Anicteric. No jaundice. No thyromegaly, cervical lymphadenopathy. Mild jugular venous distention (JVD). Lungs: Diminished, bibasilar crackles. Heart: S1, S2, sinus rhythm. Abdomen: Is obese, soft, nontender, nondistended. Positive bowel sounds times four quadrants. No rebound or guarding. No abdominal bruits. Extremities: 2+ pitting edema, improved from yesterday. Chronic venous stasis changes. LABORATORY DATA: White count 7.8, hemoglobin 8.5, hematocrit 29, platelet count 226. Sodium 141, potassium 4.8, chloride 100, bicarbonate 36, BUN 22, creatinine 1.33, glucose of 110. MICROBIOLOGY: Urine culture 03/12/2019, no growth. Chest x-ray 03/22/2019: Improved interstitial pattern, right pleural effusion is unchanged. ASSESSMENT AND PLAN: This is a 69-year-old male with past medical history significant for coronary artery disease, coronary artery bypass graft (CABG), aortic valve replacement in 2016, who sees Dr. 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 Olivo, and congestive heart failure. ACUTE ISSUES: Are: 1. Acute on chronic congestive heart failure (CHF), decompensated with systolic and diastolic dysfunction, ejection fraction of 45%. The patient has been in net negative balance with decrease in weight from a peak of 127.6 kg to current weight of 114.4 kg. Currently, on torsemide twice a day, fluid restriction, strict intake and output (I and O), daily weights, and salt restriction. Doing well. Per his nursing staff development coordinator, the patient will still need 2-3 more days of diuresis to achieve euvolemia. The patient's creatinine is at baseline. Avoiding further nephrotoxics and nonsteroidal antiinflammatory drugs (NSAIDs). 2. Gastrointestinal bleed. Hemoglobin and hematocrit remain stable. No active bleeding. Per Dr. Olivo, outpatient followup will be adequate. No need to emergently scope the patient since he has had no overt GI bleed, and hemoglobin and hematocrit remain stable. He is off his anticoagulant. Currently just on aspirin and on Protonix for ulcer prophylaxis. 3. Depression. On Prozac. 4. History of cerebrovascular accident (CVA) with mild right hemiparesis. On aspirin. The patient has passed home safety evaluation and may be discharged home. 5. Dyslipidemia. On chronic Lipitor. 6. History of carotid artery disease. On aspirin and Lipitor. Outpatient followup with vascular surgery. DISPOSITION: Per cardiology, the patient is not euvolemic and still needs 2-3 more days of diuresis. The patient has passed a home safety evaluation with expected discharge date on Thursday or Thursday. [facility]
[2019-03-24] MEDS: LIDOCAINE 2% JELLY 6 ML SYRINGE TOP SCH ×2 (10:22→21:01)
[2019-03-24] MEDS: VANICREAM MOISTURIZING SKIN CREAM 113GM TUBE TOP SCH ×2 (10:23→21:03)
[2019-03-24 11:46] VITALS: BP 147/70
[2019-03-24] MEDS: TORSEMIDE 20 MG TAB PO SCH ×2 (12:37)
[2019-03-24] MEDS ORDERED: VARIBAR PUDDING 40% w/v 230ML TUBE As Ordered ONE (14:34)
[2019-03-24] MEDS ORDERED: VARIBAR NECTAR 40% w/v 240ML SUSP BTL As Ordered ONE (14:34)
[2019-03-24] MEDS ORDERED: E-Z-PAQUE 96% w/w SUSP 176GM BTL As Ordered ONE (14:35)
[2019-03-24] MEDS ORDERED: BARIUM SULFATE 700 MG TABLET (E-Z-DISK) As Ordered ONE (14:35)
--- NOTE | 2019-03-24 16:40 | REP ---
Examination Requested: Cookie Swallow Reason For Exam: Evaluate for aspiration The procedure was performed by SANDRA Clayotn, under the direct supervision of Dr. Jett. The procedure was performed with Staci Arroyo from speech pathology present. 5 ml aliquots of thin, pudding, mixed fruit, soft food, hard food and nectar thick consistency barium was administered. Penetration was visualized with both thin and nectar thick consistency barium. The detailed report of this examination will be provided by speech pathology. 2.0 minutes of fluoroscopy time was utilized for this procedure. Reviewed by SANDRA Mitchell 03/24/2019 03:34 P Electronically Signed by Denys Mitchell MD 03/24/2019 04:31 P
[2019-03-24 20:00] VITALS: BP 134/60
[2019-03-24] MEDS: VALSARTAN 80 MG TAB (DIOVAN) PO SCH (21:02)
[2019-03-24] MEDS: ATORVASTATIN 20 MG TAB PO SCH (21:03)
[2019-03-25] VITALS: BP 149/70
[2019-03-25 04:00] VITALS: BP 146/70
[2019-03-25 05:31] LABS: HEMATOCRIT 28.7 % (42.0-52.0); HEMOGLOBIN 8.4 g/dl (13.5-17.5); MEAN CORPUSCULAR HEMOGLOBIN 23.5 pg (27.0-33.0); MEAN CORPUSCULAR HGB CONC 29.3 g/dl (32.0-36.5); MEAN CORPUSCULAR VOLUME 80.4 fl (80.0-96.0); PLATELET COUNT, AUTOMATED 231 10^3/uL (150-450); RED BLOOD COUNT 3.57 10^6/uL (4.30-6.10); WHITE BLOOD COUNT 8.3 10^3/uL (4.0-10.0)
[2019-03-25 05:51] LABS: CALCIUM LEVEL 8.5 MG/DL (8.8-10.2); CREATININE FOR GFR 1.3 MG/DL (0.70-1.30); GLOMERULAR FILTRATION RATE 57.9 (>42); MAGNESIUM LEVEL 2.1 MG/DL (1.8-2.4); POTASSIUM SERUM 4.8 MEQ/L (3.5-5.1)
[2019-03-25 08:00] VITALS: BP 141/66
[2019-03-25] MEDS: POTASSIUM CHLORIDE 10 MEQ SR TABLET PO SCH ×2 (08:11→21:57)
[2019-03-25] MEDS: HumaLOG INSULIN (NovoLOG) PER UNIT SC SCH ×3 (08:11→21:00)
[2019-03-25] MEDS: IRON POLYSAC (NIFEREX) 150 MG CAP PO SCH (08:11)
[2019-03-25] MEDS: ASPIRIN 81 MG ENTERIC TAB PO SCH (08:11)
[2019-03-25] MEDS: LIDOCAINE 2% JELLY 6 ML SYRINGE TOP SCH (08:11)
[2019-03-25] MEDS: GABAPENTIN 100 MG CAP PO SCH ×2 (08:12→21:57)
[2019-03-25] MEDS: FLUoxetine 20 MG CAP PO SCH (08:12)
[2019-03-25] MEDS: PANTOPRAZOLE 40MG TAB (PROTONIX) PO SCH (08:12)
[2019-03-25] MEDS: SPIRONOLACTONE 12.5MG PER 1/2 TABLET PO SCH (08:13)
[2019-03-25] MEDS: CARVedilol 12.5 MG TAB PO SCH ×2 (08:17→21:56)
[2019-03-25] MEDS: ISOSORBIDE MON. (IMDUR) 30 MG XR TAB PO SCH (08:17)
[2019-03-25] MEDS: VANICREAM MOISTURIZING SKIN CREAM 113GM TUBE TOP SCH ×2 (08:19→21:59)
[2019-03-25] MEDS: LEVEMIR (INSULIN DETEMIR) 1 UNITS/0.01ML SC SCH ×2 (08:19→21:58)
--- NOTE | 2019-03-25 08:32 | IPN ---
DATE OF SERVICE: 03/25/2019 Mr. Rosario has been feeling well. He recognizes that his dyspnea is improving every day and he is ambulation is becoming easier. He has not had any significant events otherwise. Vital Signs: This morning, blood pressure 146/70, heart rate has been in the 70s and is sinus rhythm. He is afebrile. Saturation is 98% on 3 liters of oxygen. His fluid balance yesterday was recorded -2500. He made almost 3 liters of urine. Weight is recorded at 109.6 kg which is probably inaccurate compared to reading yesterday. He is alert, oriented and appropriate. His jugular venous pulse (JVP) is still high, but not as much as it was last week, probably about 6-7 cm above the clavicle. Lungs are still revealing fine crackles over the bases. They improve some with cough. Heart exam reveals a regular rhythm. There is a murmur over the aortic valve, about 2/6 intensity, radiating to the neck, which has not changed since this admission. Abdomen is soft, nontender. There is still peripheral edema, but his legs are becoming much more soft than they used to be. Laboratories: Basic metabolic panel with sodium 139, potassium 4.8, BUN 21, creatinine 1.3, glucose 162. CBC with hemoglobin 8.4, hematocrit 28 and platelet count 231,000. ASSESSMENT AND PLAN: Mr. Rosario is a 69-year-old man with history of coronary artery bypass graft (CABG) and aortic valve replacement in 2016 who presented with heart failure. His ejection fraction (EF) is about 45%, so it is not classical systolic or diastolic failure. He was grossly volume over loaded and has been aggressively diuresed. Even though he has lost according to our scale approximately 27 kg, he still is mildly volume overloaded. I would continue current diuretic dosing, but I would not be objecting to the patient being discharged. At this point, I think it is safe. He is overall much improved and I believe I can follow him on an outpatient basis. I talked to him again about the need for restriction of fluid intake and about weight monitoring on a daily basis. As far as coronary artery disease is concerned, it has been clinically silent during this admission. There were no signs to suggest that he is ischemic. Blood pressure was initially very elevated, but with progressive diuresis his blood pressure is coming down. Finally, he is presenting symptoms of actually GI bleeding. He was initially getting ready to get a colonoscopy, but I suggested that it is postponed because he was in florid heart failure. Later on apparently it was decided that the procedure will be accomplished on an outpatient basis. His hemoglobin has been stable for the last week. I am going to sign off his care. If he still should be in the hospital next week, I will be happy to see him. Otherwise, Dr. Villa will cover cardiology over the weekend.
[2019-03-25] MEDS ORDERED: SLF 3 ML SYR IV PRN (10:30)
[2019-03-25 12:00] VITALS: BP 134/63
[2019-03-25] MEDS: TORSEMIDE 20 MG TAB PO SCH ×2 (12:28)
[2019-03-25] MEDS: SLF 3 ML SYR IV SCH ×2 (14:00→21:59)
[2019-03-25 16:00] VITALS: BP 137/76
--- NOTE | 2019-03-25 19:30 | IPN ---
DATE: 03/25/2019 The patient says that his breathing is much better, lower extremity is a lot less edematous, no complaints of cough, fever, chills. Ambulating well and passed a home safety evaluation. Output overnight was 2.8 liters, negative 2.4 over the past 24 hours. Current weight is 109.6 kg with a peak weight of 129.5 kg on admission. The patient is open to being discharged, but prefers to be discharged in the morning. Therefore, will continue diuresis overnight. Per nuclear medical tech, Dr. Velez, patient may be discharged anytime either today or tomorrow. Vital Signs: Temperature 97.8, pulse 63, respiratory rate 18, blood pressure 134/63, 98% on 3 liters nasal cannula. Generally, patient is awake, alert, oriented times three, answering questions appropriately. No jugular venous distention (JVD), thyromegaly, or cervical lymphadenopathy. Lungs are clear to auscultation. No wheezing, rales or rhonchi. Heart: S1, S2, sinus rhythm. Abdomen is obese, soft, nontender, nondistended. Extremities: Chronic 2+ pitting edema with venous stasis changes White count 8.3, hemoglobin 8.4, hematocrit 28, platelet count 231. Sodium 139, potassium 4.8, chloride 100, bicarbonate 35, BUN 21, creatinine 1.3, glucose of 162. Modified barium swallow penetration with both thin and nectar-thick consistency barium. ASSESSMENT AND PLAN: This is a 69-year-old male with a history of coronary artery disease, coronary artery bypass graft (CABG), aortic valve replacement 2016, hypertension, CVA with mild right-sided hemiparesis, prostate cancer (CA) with radiation, chronic kidney disease III, obstructive sleep apnea (KAROLINE), diabetes, coronary artery disease with occlusion in right carotid internal artery, carotid artery, presented with worsening shortness of breath, symptomatic anemia, and was found to have an acute gastrointestinal (GI) bleed, evaluated by Dr. Olivo, and acute decompensated congestive heart failure with chronic systolic dysfunction. Acute issues are as follows: 1. Acute on chronic systolic and diastolic dysfunction, ejection fraction of 45% with low ejection fraction. Patient has done well with net negative balance daily. Admission weight was 129.5 kilograms (kilos) peaked with current 109.6 kilograms and symptomatic improvement in his dyspnea on exertion. The patient's scope was postponed due to decompensated heart failure. He was transfused two units of red blood cells (RBCs) when he came in with increase in his hemoglobin from 7.2 to current 8.4 with no decompensated state since. Per Dr. Olivo, the patient may followup as an outpatient for esophagogastroduodenoscopy (EGD). He is continued only on aspirin, and his anticoagulant has been discontinued temporarily. The patient is doing well on Demadex 40 mg every 12 hours, fluid restriction, strict intake and output and daily weights. He says his nephew will be living with him and will be assisting him in keeping to a fluid restriction, as well as salt restriction. The patient has previously been noncompliant with dietary and water intake, as well as home care. The patient has had previous home care in the past, but has sent them out of his house. The patient's daughter is aware that family may need to be much more involved this time if home care does not pick him up. Discharge plans are for Thursday. 2. Symptomatic anemia due to GI bleed. The patient's anticoagulation has been discontinued. He is currently only on aspirin. He has been transfused three units of RBCs, appears to be stable with no recurrent episodes of bleeding. He is to follow with Dr. Olivo as an outpatient. 3. Coronary artery disease, coronary artery bypass graft (CABG). Continue on aspirin, valsartan, Coreg, spironolactone, Lipitor. 4. Depression. On Prozac. 5. Hypertension. On isosorbide, valsartan, Coreg, torsemide. 6. Chronic constipation. On a bowel regimen. 7. Type 2 diabetes. On insulin sliding scale and Levemir insulin. Appears to be well controlled. Discharge plans tomorrow. [facility]
[2019-03-25 20:00] VITALS: BP 147/70
[2019-03-25] MEDS: ATORVASTATIN 20 MG TAB PO SCH (21:57)
[2019-03-25] MEDS: VALSARTAN 80 MG TAB (DIOVAN) PO SCH (21:57)
[2019-03-25] MEDS: LIDOCAINE 2% JELLY 30 ML TOP SCH (22:36)
[2019-03-26] VITALS: BP 132/76
[2019-03-26 04:00] VITALS: BP 131/61
[2019-03-26] MEDS: SLF 3 ML SYR IV SCH ×2 (04:51→14:00)
[2019-03-26 06:03] LABS: HEMATOCRIT 29.4 % (42.0-52.0); HEMOGLOBIN 8.4 g/dl (13.5-17.5); MEAN CORPUSCULAR HEMOGLOBIN 23.2 pg (27.0-33.0); MEAN CORPUSCULAR HGB CONC 28.6 g/dl (32.0-36.5); MEAN CORPUSCULAR VOLUME 81.2 fl (80.0-96.0); PLATELET COUNT, AUTOMATED 210 10^3/uL (150-450); RED BLOOD COUNT 3.62 10^6/uL (4.30-6.10); WHITE BLOOD COUNT 7.5 10^3/uL (4.0-10.0)
[2019-03-26 06:25] LABS: BLOOD UREA NITROGEN 19 MG/DL (7-18); CALCIUM LEVEL 8.5 MG/DL (8.8-10.2); CARBON DIOXIDE LEVEL 36 MEQ/L (21-32); CHLORIDE LEVEL 100 MEQ/L (98-107); CREATININE FOR GFR 1.19 MG/DL (0.70-1.30); GLOMERULAR FILTRATION RATE > 60.0 (>42); GLUCOSE, FASTING 170 MG/DL (70-100); MAGNESIUM LEVEL 2.2 MG/DL (1.8-2.4); POTASSIUM SERUM 4.7 MEQ/L (3.5-5.1); SODIUM LEVEL 139 MEQ/L (136-145)
[2019-03-26 08:00] VITALS: BP 147/83
[2019-03-26] MEDS: IRON POLYSAC (NIFEREX) 150 MG CAP PO SCH (08:12)
[2019-03-26] MEDS: PANTOPRAZOLE 40MG TAB (PROTONIX) PO SCH (08:12)
[2019-03-26] MEDS: GABAPENTIN 100 MG CAP PO SCH (08:12)
[2019-03-26] MEDS: FLUoxetine 20 MG CAP PO SCH (08:12)
[2019-03-26 08:13] VITALS: BP 135/61
[2019-03-26] MEDS: SPIRONOLACTONE 12.5MG PER 1/2 TABLET PO SCH (08:13)
[2019-03-26] MEDS: CARVedilol 12.5 MG TAB PO SCH (08:13)
[2019-03-26] MEDS: POTASSIUM CHLORIDE 10 MEQ SR TABLET PO SCH (08:13)
[2019-03-26] MEDS: ASPIRIN 81 MG ENTERIC TAB PO SCH (08:13)
[2019-03-26] MEDS: ISOSORBIDE MON. (IMDUR) 30 MG XR TAB PO SCH (08:13)
[2019-03-26] MEDS: HumaLOG INSULIN (NovoLOG) PER UNIT SC SCH ×2 (08:14→11:44)
[2019-03-26] MEDS: LEVEMIR (INSULIN DETEMIR) 1 UNITS/0.01ML SC SCH (08:14)
[2019-03-26] MEDS: VANICREAM MOISTURIZING SKIN CREAM 113GM TUBE TOP SCH (08:15)
[2019-03-26] MEDS: LIDOCAINE 2% JELLY 30 ML TOP SCH (08:16)
[2019-03-26] MEDS: TORSEMIDE 20 MG TAB PO SCH ×2 (11:45)
--- NOTE | 2019-03-28 13:46 | DSES ---
DATE OF ADMISSION: 03/09/2019 DATE OF DISCHARGE: 03/26/2019 CONSULTANTS: Dr. Pascual Olivo, oil house attendant. Magnetic Tape Typewriter Operator, Dr. Nakul Velez. PRIMARY DISCHARGE DIAGNOSES: 1. Symptomatic anemia due to gastrointestinal bleed. 2. Gastrointestinal bleed with melena. 3. Acute on chronic systolic heart failure exacerbation, ejection fraction of 45%. 4. Acute blood loss anemia secondary to GI bleed requiring 2 units of red blood cell transfusion. 5. Chronic kidney disease stage III. 6. Chronic hypoxic respiratory failure. DISCHARGE INSTRUCTIONS: Fluid restriction of 1.5 to 2 liters daily, strict input and output, call skiver sock linings if more than 2 pound weight gain. Discharge weight is 108.5 kg with admission weight of 129.5 kg. DISCHARGE MEDICATIONS: - torsemide 40 mg every 12 hours - spironolactone 12.5 mg daily - Tresiba 40 units subcutaneous daily - Coreg 12.5 mg twice a day - valsartan 320 mg at night - aspirin 81 mg daily - fluoxetine 40 mg daily - gabapentin 200 mg twice a day - isosorbide 30 mg daily - meclizine 20 mg every 8 hours as needed - nitroglycerin as needed - Protonix 40 mg daily - pravastatin 40 mg at night DISCHARGE INSTRUCTIONS: The patient is to refrain from using Plavix due to recent gastrointestinal bleed. He is to followup with Dr. Olivo as an outpatient to schedule esophagogastroduodenoscopy (EGD) regarding complaints of melena, followup with Dr. Velez within 5 days of discharge for congestive heart failure (CHF) management. HOSPITAL COURSE: This is a 69-year-old male with a history of coronary artery disease, coronary artery bypass graft (CABG), aortic valve replacement, sees Dr. Gomez in [place], hypertension, CVA with mild right sided hemiparesis, prostate cancer, chronic kidney disease stage III, obstructive sleep apnea, diabetes, right internal carotid artery occlusion, who presented with worsening shortness of breath and found to have symptomatic anemia with melena, as well as acute decompensated heart failure, systolic and diastolic dysfunction, ejection fraction of 45 to 50%. The patient was transfused 2 units of RBCs for hemoglobin of 7.2 with appropriate increase to 8.4, which has remained stable throughout the entire admission. His Plavix was held, but he was continued on aspirin. Hemoccult stool was positive. He was seen by Dr. Olivo, who recommended outpatient followup due to active decompensated heart failure. The patient was diuresed by his skiver sock linings and was on torsemide 40 mg twice a day. Admission weight was 129.5 kg, discharge weight of 108.5 kg. The patient had episode of acute kidney injury with creatinine 1.33 but remained stable with a creatinine of 1.19 on discharge. Respiratory panel was negative. Blood cultures negative. Renal ultrasound showed no Doppler evidence of renal artery stenosis. Chest x-ray improved on 03/22/2019 with improved interstitial pattern. The patient was found to be coughing when he eats, modified barium swallow showed no aspiration. The patient was changed back to a 2-gram sodium diet from dysphagia diet. PHYSICAL EXAMINATION: On discharge, temperature 97.7, pulse 73, respiratory rate 20, blood pressure 135/61, 99% on 3 liters nasal cannula. GENERAL: Awake, alert, oriented. Answering questions appropriately. No jugular venous distention (JVD). No thyromegaly. LUNGS: Clear to auscultation in the upper lobes, crackles at the right base. HEART: S1, S2. Systolic ejection murmur radiating to the neck. ABDOMEN: Soft, obese, nontender, nondistended. Positive bowel sounds. EXTREMITIES: Positive pitting edema, 2+, decreased from admission. DISCHARGE LABORATORY DATA: White count 7.5, hemoglobin 8.4, hematocrit 29, platelet count 210. Sodium 139, potassium 4.7, chloride 100, bicarbonate 36, BUN 19, creatinine 1.19, glucose of 170. Hemoccult stool positive on 03/11/2019. Urine culture on 03/12/2019 showed no growth. Blood culture negative times 5 days. Respiratory panel negative. IMAGING STUDIES: Renal ultrasound showed no renal artery stenosis. Chest x-ray on 03/09/2019 showed congestive heart failure (CHF) with marked interstitial edema with vascular calcifications, small right pleural effusion. There is a loop recorder visible. Time spent on discharge: 30 minutes. [facility]
== END 2019-03-26 14:40 | disposition home health service (06) | DRG 871 ==
LOC: EDBD 20:03 → M ED 20:03 → M ED INP 21:44 → ENRESERVTM 22:43 → ENRESERVDT 22:43 → ENRESERVTM 23:45 → ENRESERVDT 23:45 → M PCU 03-10 00:24
PROVIDERS: ADMIT Internal Medicine; ATTEND General Practice
PROC: 30233N1 Transfusion of Nonautologous Red Blood Cells into Peripheral Vein, Percutaneous Approach (ICD-10-PCS; principal; 2019-03-10)
DX: A41.9 Sepsis, unspecified organism (principal); I50.33 Acute on chronic diastolic (congestive) heart failure; I69.351 Hemiplegia and hemiparesis following cerebral infarction affecting right dominant side; D62 Acute posthemorrhagic anemia; I13.0 Hypertensive heart and chronic kidney disease with heart failure and stage 1 through stage 4 chronic kidney disease, or unspecified chronic kidney disease; K92.1 Melena; J96.11 Chronic respiratory failure with hypoxia; N18.3 Chronic kidney disease, stage 3 (moderate); E11.51 Type 2 diabetes mellitus with diabetic peripheral angiopathy without gangrene; Z66 Do not resuscitate; Z79.899 Other long term (current) drug therapy; I25.10 Atherosclerotic heart disease of native coronary artery without angina pectoris; G47.33 Obstructive sleep apnea (adult) (pediatric); Z95.1 Presence of aortocoronary bypass graft; Z95.2 Presence of prosthetic heart valve; Z85.46 Personal history of malignant neoplasm of prostate; E78.5 Hyperlipidemia, unspecified; Z87.891 Personal history of nicotine dependence; E11.649 Type 2 diabetes mellitus with hypoglycemia without coma; Z79.82 Long term (current) use of aspirin; I25.2 Old myocardial infarction; I34.0 Nonrheumatic mitral (valve) insufficiency; F32.9 Major depressive disorder, single episode, unspecified; K59.00 Constipation, unspecified

== ENCOUNTER 2019-05-05 15:29 | Inpatient (IN) | payer MEDICARE, MEDICAID ==
[~2019-05-05 15:29] MED LIST changes: +ALDA25TA2 PO; +CARV12.5 PO; -FLUO20CA19 PO; +FLUO20CA22 PO; +TORS20TA2 PO; +TRES100I SC; +VALA1TAB5 PO; -VALA1TAB64 PO; +VALS1TAB66 PO
--- NOTE | 2019-05-05 16:21 | REPVR ---
PROCEDURE INFORMATION: Exam: CT Head Without Contrast Exam date and time: 05/05/2019 3:54 PM Age: 69 years old Clinical indication: Injury or trauma; Fall; Initial encounter; Blunt trauma (contusions or hematomas); Additional info: Fall on blood thinners; Reported loc TECHNIQUE: Imaging protocol: Computed tomography of the head without contrast. Radiation optimization: All CT scans at this facility use at least one of these dose optimization techniques: automated exposure control; mA and/or kV adjustment per patient size (includes targeted exams where dose is matched to clinical indication); or iterative reconstruction. COMPARISON: CT Head without contrast 11/22/2018 11:38 AM FINDINGS: Brain: There is no acute intracranial hemorrhage, cerebral edema, or midline shift. Chronic microvascular ischemic changes are seen in the periventricular white matter. Age-related cerebral and cerebellar volume loss is present. Ventricles: Mild ex vacuo dilation of the lateral and third ventricles is noted. Bones/joints: No acute fracture. Sinuses: There is mild mucosal thickening noted within the paranasal sinuses. Mastoid air cells: The mastoid air cells are clear. Orbits: The included orbital structures are unremarkable. Soft tissues: Unremarkable. Vasculature: Atherosclerotic calcifications are seen involving the cavernous carotid arteries. IMPRESSION: 1. No acute intracranial abnormality. 2. Atrophy and chronic deep white matter ischemic change. Electronically signed by: You Herbert On 05/05/2019 16:20:53 PM
--- NOTE | 2019-05-05 16:34 | REPVR ---
PROCEDURE INFORMATION: Exam: CT Cervical Spine Without Contrast Exam date and time: 05/05/2019 4:08 PM Age: 69 years old Clinical indication: Injury or trauma; Fall; Initial encounter; Blunt trauma; Additional info: Fall at home; Neck pain TECHNIQUE: Imaging protocol: Computed tomography images of the cervical spine without contrast. Radiation optimization: All CT scans at this facility use at least one of these dose optimization techniques: automated exposure control; mA and/or kV adjustment per patient size (includes targeted exams where dose is matched to clinical indication); or iterative reconstruction. COMPARISON: CT Spine,cervical w/o contrast 11/22/2018 11:38 AM FINDINGS: Vertebrae: No acute fracture is identified. There is straightening of the normal cervical lordosis. Discs/Spinal canal/Neural foramina: Moderate degenerative changes of the cervical spine are present. There is no severe spinal canal stenosis. Multilevel neural foraminal narrowing from uncinate spurring and facet arthropathy is noted. Soft tissues: Unremarkable. Lungs: Lung apices are normal. Vasculature: Atherosclerotic calcifications are present at the carotid bifurcations. IMPRESSION: 1. No acute abnormality. 2. Chronic findings as discussed above. Electronically signed by: You Herbert On 05/05/2019 16:33:55 PM
[2019-05-05 17:20] LABS: BASO % 0.4 % (0.0-1.0); EOS # 0.4 10^3/uL (0.0-0.5); EOS % 6.6 % (0.0-3.0); HEMOGLOBIN 8.8 g/dl (13.5-17.5); LYMPH # 0.4 10^3/uL (1.5-5.0); LYMPH % 6.4 % (24.0-44.0); MEAN CORPUSCULAR HEMOGLOBIN 24.4 pg (27.0-33.0); MEAN CORPUSCULAR HGB CONC 30.3 g/dl (32.0-36.5); MEAN CORPUSCULAR VOLUME 80.3 fl (80.0-96.0); MONO # 0.7 10^3/uL (0.0-0.8); NEUTROPHILS # 5.1 10^3/uL (1.5-8.5); NEUTROPHILS % 76.2 % (36.0-66.0); PLATELET COUNT, AUTOMATED 261 10^3/uL (150-450); RED BLOOD COUNT 3.61 10^6/uL (4.30-6.10); WHITE BLOOD COUNT 6.7 10^3/uL (4.0-10.0)
[2019-05-05 17:30] LABS: INR 1.23; PROTHROMBIN TIME 15.2 SECONDS (11.8-14.0)
[2019-05-05 17:31] LABS: PARTIAL THROMBOPLASTIN TIME 33.3 SECONDS (25.0-38.4)
[2019-05-05 17:46] LABS: BLOOD UREA NITROGEN 35 MG/DL (7-18); CALCIUM LEVEL 8.5 MG/DL (8.8-10.2); CARBON DIOXIDE LEVEL 29 MEQ/L (21-32); CHLORIDE LEVEL 103 MEQ/L (98-107); CK-MB VALUE MASS 1.6 NG/ML (<3.6); CPK CREATINE PHOSPHOKINASE 27 U/L (39-308); CREATININE FOR GFR 1.71 MG/DL (0.70-1.30); FREE T4 1.01 NG/DL (0.76-1.46); GLOMERULAR FILTRATION RATE 42.2 (>42); GLUCOSE, FASTING 91 MG/DL (70-100); MAGNESIUM LEVEL 2.1 MG/DL (1.8-2.4); MB/CK RELATIVE INDEX 5.93 (< OR =4); POTASSIUM SERUM 4.7 MEQ/L (3.5-5.1); SODIUM LEVEL 137 MEQ/L (136-145); TROPONIN I < 0.02 NG/ML (< 0.10)
[2019-05-05] MEDS ORDERED: NS 500 ML IV ONE (18:15)
--- NOTE | 2019-05-05 18:41 | REP ---
PORTABLE CHEST: AP portable view of the chest is performed and compared to prior study of 03/22/2019. There is chronic cardiomegaly, vascular congestion and interstitial edema as seen on multiple prior exams. Previously noted moderate right effusion has improved with very mild residual pleural fluid. There is calcification of the thoracic aorta. Mediastinal silhouette is unchanged. Multiple sternal wires are present. Electronically Signed by Denys Vanessa MD 05/06/2019 05:03 P
--- NOTE | 2019-05-05 19:27 | HPEPDOC ---
[facility] Medical History & Physical Date of Admission May 05, 2019 Date of Service: May 05, 2019 Primary Care Physician: A Other Provider Sunny Monreal Attending Physician: AZRA CHANCE MD History and Physical TIME OF SERVICE: 8:30 PM CHIEF COMPLAINT: Syncope HISTORY OF PRESENT ILLNESS: This 69-year-old male has a history of dizziness, which she reports comes and goes. He thinks his dizziness may be due to medications. Yesterday he became very dizzy and today his dizziness was so bad that he collapsed and fell onto the floor. He denies having chest pain, shortness of breath, blurry vision, ringing in the ears, fevers, chills, runny nose, cough, or congestion before losing consciousness. REVIEW OF SYSTEMS: 12 point review of systems negative except as listed in HPI PAST MEDICAL/ SURGICAL HISTORY: Chronic systolic/diastolic CHF, EF 45% Chronic hypertension CKD 3 with renal artery stenosis Type 2 Diabetes with neuropathy KAROLINE. 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 Prostate cancer. Diabetes ALLERGIES: Please see below. HOME MEDICATIONS: Please see below. Vital Signs Date Time Temp Pulse Resp B/P (MAP) Pulse Ox O2 Delivery O2 Flow Rate FiO2 05/05/19 15:45 59 129/59 (82) 99 Nasal Cannula 3.0 05/05/19 15:48 97.2 18 PHYSICAL EXAMINATION: GEN: well-nourished / well developed/ NAD INTEGUMENT: not flushed/ not jaundice HEENT: NCAT / lips acyanotic /mucus membranes moist and pink CVS: RRR/NMRG/ LUNGS: clear to auscultation bilaterally on room air ABDOMEN: soft & not tender with palpation MSK/EXTREMITIES: range of motion intact in all 4 extremities NEURO: CN 2-12 are grossly intact / speech is not dysarthric PSYCH: alert and oriented / able to understand and follow all commands LABORATORY DATA: IMAGING: CT head "IMPRESSION: 1. No acute intracranial abnormality. 2. Atrophy and chronic deep white matter ischemic change. " CT neck "IMPRESSION: 1. No acute abnormality. 2. Chronic findings as discussed above." Chest xray "There is chronic cardiomegaly, vascular congestion and interstitial edema as seen on multiple prior exams. Previously noted moderate right effusion has improved with very mild residual pleural fluid. There is calcification of the thoracic aorta. Mediastinal silhouette is unchanged. Multiple sternal wires are present." MICROBIOLOGY: Please see below. ASSESSMENT: Mr. Rosario is a 69-year-old with a past medical history of systolic, diastolic CHF, chronic CAD, HTN, CKD 3 with renal artery stenosis, DM 2, with neuropathy, KAROLINE, CVAs, and unsteady gait who is admitted for evaluation of syncope whose causes to be determined. PLAN: 1.Syncope Possibly 2/2 ADR to meds / dehydration vs He has a few factors for adverse outcomes in syncope including BNP >300 / hemoglobin <9 / EKG w Q waves EKG shows sinus rhythm w first degree AV block CT of the head and Trop were unrevealing EGSYS Score to identify cardiac syncope = 3 points = julio cardiac syncope Echo done on Mar 10 2019 " ... (LVEF) 45% by visual estimate. Mild concentric left ventricle hypertrophy. Probable akinesis of the mid anteroseptal segment and mid inferoseptal segment. Akinesis of the apical segments. Akinesis of apical cap segment. Probable hypokinesis of the mid anterior segment. Normal regional wall motion and wall thickening elsewhere....2. Moderate focal thickening and focal calcific deposits of a three-cuspid aortic valve. Mild aor tic stenosis. No aortic regurgitation..." Plan: since he has clinical risk factors for adverse outcomes we will admit to the medical floor / telemetry / f/u serial troponins / because the patient att ributes his episodes of dizziness to medications we will will hold his hydralazine for now pending orthostats / the day time team can determine if any additional testing is warranted / continue meclizine 2. ARMEN on CKD 3 Possibly prerenal due to dehydration His baseline creatinine is 1.19, today it is 1.71 CPK is within normal limits and his UA is unrevealing Since he has both DM and CKD his target BP is BP <130/80, He received 500ml of IVF in the ER Plan: Is/Os, / we will not give additional IVF since he has a hx of CHF / f/u ulytes for FEUrea, Upro, UCr, Phosp, Vitamin D, Uric Acid / renal US 3. Normocytic Anemia His hemoglobin is close to his baseline of about 8.5 Since he has CKD his taget Hg is about 10-11.5 Plan: Follow-up iron panel prior to ordering Venofer / the day time team may consider consulting nephro to discuss if he is a candidate for EPO 4 .Chronic systolic/diastolic CHF, EF 45% Clinically he does not appear decompensated. Plan: Follow up I's and O's/daily weights/restrict salt to 2 g and fluids to 2 L/continue with Coreg, isosorbide with hydralazine and spironolactone / resume Lasix 80 mg 3 times a day tomorrow 5. Chronic hypertension - Plan: Carvedilol, furosemide, spironolactone / hydralazine as an hold because of dehydration/the daytime team may consider starting another antihypertensive such as amlodipine to reach his target blood pressure 6. Type 2 Diabetes with neuropathy - Plan: f/u accuchecks & A1C / hypoglycemia protocol / sliding scale insulin / hold oral anti-glycemics while hospitalized /will start detemir 50 units daily ( his home meds are Tresiba 60 units daily lung with lispro before meals) 7. KAROLINE - Plan: own CPAP 8. Chronic CAD s/p CABG - Plan: ASA, Carvediolol, Pravastatin 9. History of CVAs - Plan: ASA & statin 10. Unsteady gait - Plan: PT eval to determine if he needs out pt PT DVT PROPHYLAXIS: lovenox DISPOSITION: home after more than 2 midnight's stay Home Medications Scheduled Aspirin (Aspir 81) 81 Mg Tablet.dr, 81 MG PO DAILY Carvedilol (Carvedilol) 6.25 Mg Tablet, 6.25 MG PO BID Clopidogrel Bisulfate (Clopidogrel) 75 Mg Tablet, 75 MG PO DAILY Fluoxetine Hcl (Fluoxetine HCl) 40 Mg Capsule, 40 MG PO DAILY Furosemide (Furosemide) 40 Mg Tablet, 80 MG PO TID Gabapentin (Gabapentin) 100 Mg Capsule, 200 MG PO BID Glipizide (Glipizide ER) 5 Mg Tab.er.24, 5 MG PO DAILY Hydralazine HCl (Hydralazine HCl) 25 Mg Tablet, 25 MG PO BID Insulin Degludec (Tresiba Flextouch U-100) 100 Unit/1 Ml Insuln.pen, 60 UNIT SC DAILY Insulin Human Lispro (Humalog) 100 Unit/1 Ml Vial, 1 DOSE SC AC SLIDING SCALE Isosorbide Mononitrate (Isosorbide Mononitrate ER) 30 Mg Tab.er.24h, 30 MG PO DAILY Pantoprazole Sodium (Pantoprazole Sodium) 40 Mg Tablet.dr, 40 MG PO DAILY Pravastatin Sodium (Pravastatin Sodium) 40 Mg Tablet, 40 MG PO QHS Spironolactone (Spironolactone) 25 Mg Tablet, 25 MG PO DAILY Scheduled PRN Meclizine HCl (Meclizine HCl) 25 Mg Tablet, 25 MG PO Q8H PRN for DIZZINESS Nitroglycerin (Nitrostat) 0.4 Mg Tab.subl, 0.4 MG SL NITRO PRN for CHEST PAIN Allergies Coded Allergies: No Known Allergies (Unverified , 07/19/18) A-FIB/CHADSVASC A-FIB History Current/History of A-Fib/PAF?: No Current PO Anticoag Therapy: No AZRA CHANCE MD May 05, 2019 19:27
[2019-05-05] MEDS ORDERED: MAALOX 30 ML SUSP *UDC PO PRN (19:30)
[2019-05-05] MEDS ORDERED: ACETAMINOPHEN TAB 650MG DOSE (2X325MG) PO PRN (19:30)
[2019-05-05] MEDS ORDERED: MOM 30ML SUSPENSION UDC PO PRN (19:30)
[2019-05-05] MEDS ORDERED: FURO40TA2 PO (19:39)
[2019-05-05] MEDS ORDERED: CLOP75TA2 PO (19:39)
[2019-05-05] MEDS ORDERED: TRES1INJ2 SC (19:39)
[2019-05-05] MEDS ORDERED: SPIR-10 PO (19:39)
[2019-05-05] MEDS ORDERED: CARV6.25 PO (19:39)
[2019-05-05] MEDS ORDERED: HYDR25TA PO (19:39)
--- NOTE | 2019-05-05 20:19 | REPVR ---
PROCEDURE INFORMATION: Exam: US Retroperitoneal Limited, Kidneys Exam date and time: 05/05/2019 8:06 PM Age: 69 years old Clinical indication: Abnormal findings; Abnormal lab test; Abnormal kidney function lab tests; Additional info: Yamil TECHNIQUE: Imaging protocol: Real-time ultrasound of the retroperitoneum with image documentation. Examination was focused on the kidneys. COMPARISON: RENAL US 03/18/2019 10:13 AM FINDINGS: Right kidney: The right kidney measures 12.9 cm in its cephalocaudad dimension and 6.2 x 7.0 cm in diameter. No mass, cyst or hydronephrosis. Left kidney: The left kidney measures 12.7 cm in its cephalocaudad dimension and 6.8 x 5.3 cm in diameter. No mass, cyst or hydronephrosis. Bladder: The urinary bladder is normal. No ureteral jets are seen. IMPRESSION: Negative renal sonogram. Electronically signed by: Gilberto Luu On 05/05/2019 20:18:36 PM
[2019-05-05 20:37] LABS: FERRITIN 32 NG/ML (26-388); IRON (FE) 34 UG/DL (65-175); NT-PRO BNP 1944 PG/ML (<125); PERCENT SATURATION 8.1 % (19.7-50.0); TOTAL IRON BINDING CAPACITY 419 UG/DL (250-450)
[2019-05-05] MEDS: GABAPENTIN 100 MG CAP PO SCH (21:00)
[2019-05-05] MEDS ORDERED: PRAVASTATIN 20 MG TAB PO SCH (21:00)
[2019-05-05] MEDS: DOCUSATE SODIUM 100 MG CAP PO SCH (21:00)
[2019-05-05] MEDS: CARVedilol 6.25 MG TAB PO SCH (21:00)
[2019-05-05] MEDS ORDERED: HumaLOG INSULIN (NovoLOG) PER UNIT SC SCH (21:00)
--- NOTE | 2019-05-05 21:22 | ECGEPIP ---
[facility] - ED Test Date: 2019-05-05 Pat Name: MARIE FLYNN Department: Room: - Gender: Male Rn Pediatric Icu: MATTY : 1950 Requested By: DEEPAK Frazier Order Number: [id number] Reading MD: Juan Key Measurements Intervals [place] Rate: 65 P: 1 [place]: 286 QRS: -26 QRSD: 96 T: 105 QT: 434 QTc: 452 Interpretive Statements SINUS RHYTHM WITH FIRST DEGREE AV BLOCK BORDERLINE LEFT AXIS DEVIATION LEFT VENTRICULAR HYPERTROPHY AND ST-T CHANGE SIMILAR TO 03/09/19 Electronically Signed on 05-05-2019 21:21:59 EST by Juan Key
[2019-05-05] MEDS ORDERED: GLUCAGON FOR INJ 1 MG VIAL (J1610) SC PRN (22:45)
[2019-05-05] MEDS ORDERED: DEXTROSE 50% 50 ML SYRINGE IV PRN (22:45)
[2019-05-05] MEDS ORDERED: GLUCOSE 4 GM CHEW TABLET PO PRN (22:45)
[2019-05-05] MEDS ORDERED: NITROGLYCERIN 0.4 MG SUBL TABLET SL PRN (22:45)
[2019-05-05] MEDS ORDERED: MECLIZINE 25 MG TABLET PO PRN (22:45)
[2019-05-05 23:34] LABS: HEMOGLOBIN A1c 8.9 %
[2019-05-06 00:12] LABS: TROPONIN I < 0.02 NG/ML (< 0.10)
[2019-05-06 02:33] LABS: URIC ACID 9.1 MG/DL (3.5-7.2)
[2019-05-06 05:11] LABS: HEMATOCRIT 27.6 % (42.0-52.0); HEMOGLOBIN 8.5 g/dl (13.5-17.5); MEAN CORPUSCULAR HEMOGLOBIN 24.3 pg (27.0-33.0); MEAN CORPUSCULAR HGB CONC 30.8 g/dl (32.0-36.5); MEAN CORPUSCULAR VOLUME 78.9 fl (80.0-96.0); PLATELET COUNT, AUTOMATED 267 10^3/uL (150-450); WHITE BLOOD COUNT 6.1 10^3/uL (4.0-10.0)
[2019-05-06 05:42] LABS: BLOOD UREA NITROGEN 34 MG/DL (7-18); CALCIUM LEVEL 8.5 MG/DL (8.8-10.2); CARBON DIOXIDE LEVEL 30 MEQ/L (21-32); CHLORIDE LEVEL 102 MEQ/L (98-107); CREATININE FOR GFR 1.56 MG/DL (0.70-1.30); GLOMERULAR FILTRATION RATE 46.9 (>42); GLUCOSE, FASTING 152 MG/DL (70-100); MAGNESIUM LEVEL 2.2 MG/DL (1.8-2.4); POTASSIUM SERUM 3.7 MEQ/L (3.5-5.1); SODIUM LEVEL 138 MEQ/L (136-145); TROPONIN I < 0.02 NG/ML (< 0.10)
[2019-05-06] MEDS: HumaLOG INSULIN (NovoLOG) PER UNIT SC SCH ×2 (08:29→12:40)
[2019-05-06] MEDS ORDERED: ENOXAPARIN 30 MG/0.3 ML SYR (J1650) SC SCH (09:00)
[2019-05-06] MEDS ORDERED: FLUoxetine 20 MG CAP PO SCH (09:00)
[2019-05-06] MEDS ORDERED: FUROSEMIDE 80 MG TAB PO SCH (09:00)
[2019-05-06] MEDS ORDERED: ASPIRIN 81 MG ENTERIC TAB PO SCH (09:00)
[2019-05-06] MEDS ORDERED: SPIRONOLACTONE 25 MG TAB PO SCH (09:00)
[2019-05-06] MEDS ORDERED: CLOPIDOGREL 75 MG TAB PO SCH (09:00)
[2019-05-06] MEDS ORDERED: PANTOPRAZOLE 40MG TAB (PROTONIX) PO SCH (09:00)
[2019-05-06] MEDS ORDERED: ISOSORBIDE MON. (IMDUR) 30 MG XR TAB PO SCH (09:00)
[2019-05-06] MEDS: GABAPENTIN 100 MG CAP PO SCH (09:31)
[2019-05-06 09:32] VITALS: BP 124/69
[2019-05-06] MEDS: CARVedilol 6.25 MG TAB PO SCH (09:32)
--- NOTE | 2019-05-06 11:36 | DSES ---
DATE OF ADMISSION: 05/05/2019 DATE OF DISCHARGE: 05/06/2019 PRINCIPAL DIAGNOSIS: Orthostatic hypotension and dizziness, resolved. PRIMARY CARE PROVIDER: Sunny Monreal MD of [facility] HISTORY: Gilbreto Rosario is a 69-year-old who came to the emergency room dizzy. He had been started on some new medication that made him dizzy. He stood up quickly, felt blurry vision, sat down, and then came to the emergency room. For details, see history and physical from admission. HOSPITAL COURSE: I saw him when he was in the emergency room (ER). He had been admitted the day before. He was insisting on discharge. He said he was back normal and the dizziness was gone. He attributed it all to the medication he was given. He was able to walk without difficulty or dizziness. On examination, his vital signs were stable. Blood pressure 124/69. He had no nystagmus. Coordination normal. [id number] testing and gait normal. Heart: Regular rate and rhythm, 1/6 systolic ejection murmur. Lungs: Clear. Abdomen: Soft, nontender. LABORATORY DATA: Renal function is improved. Creatinine is down to 1.56. Sodium and potassium normal. Hemoglobin stable at 8.5. DISPOSITION: I think he can safely go home. I think he simply had some mild orthostasis which has resolved. He is to followup with Dr. Molina in a week. Activity as tolerated. Continue his current diet which should be two-gram sodium. His medicines are the same as he was taking prior to admission which are: - aspirin 81 mg daily - carvedilol 6.25 mg twice a day - Plavix 75 mg daily - fluoxetine 40 mg daily - furosemide 80 mg three times a day - gabapentin 200 mg twice a day - glipizide ER 5 mg daily - Tresiba 60 units daily - sliding scale of Humalog before meals - isosorbide mononitrate 30 mg daily - meclizine 25 mg every eight hours as needed - Nitrostat as needed - Protonix 40 mg daily - pravastatin 40 mg daily - spironolactone 25 mg daily His hydralazine which we believe to be the new medication that recently made him orthostatic has been discontinued. At the time of this dictation, there are no pending laboratories.
[2019-05-06] MEDS: DOCUSATE SODIUM 100 MG CAP PO SCH (12:40)
[2019-05-06 14:26] VITALS: BP 162/74
== END 2019-05-06 14:15 | disposition home or self-care (01) | DRG 312 ==
LOC: M ED 15:29 → M ED INP 19:27
PROVIDERS: ADMIT Internal Medicine; ATTEND Internal Medicine
DX: R55 Syncope and collapse (principal); I50.42 Chronic combined systolic (congestive) and diastolic (congestive) heart failure; I13.0 Hypertensive heart and chronic kidney disease with heart failure and stage 1 through stage 4 chronic kidney disease, or unspecified chronic kidney disease; I69.354 Hemiplegia and hemiparesis following cerebral infarction affecting left non-dominant side; N17.9 Acute kidney failure, unspecified; T46.5X5A Adverse effect of other antihypertensive drugs, initial encounter; E86.0 Dehydration; Z87.891 Personal history of nicotine dependence; N18.3 Chronic kidney disease, stage 3 (moderate); E11.40 Type 2 diabetes mellitus with diabetic neuropathy, unspecified; G47.33 Obstructive sleep apnea (adult) (pediatric); R26.81 Unsteadiness on feet; Z92.3 Personal history of irradiation; I70.1 Atherosclerosis of renal artery; I44.0 Atrioventricular block, first degree; D64.9 Anemia, unspecified; E11.22 Type 2 diabetes mellitus with diabetic chronic kidney disease

== ENCOUNTER 2019-05-09 17:03 | Inpatient (IN) | payer MEDICARE, MEDICAID ==
[~2019-05-09] VITALS: Ht 180.3 cm; Wt 101.1 kg
[~2019-05-09 17:03] MED LIST changes: +SPIR-10 PO
--- NOTE | 2019-05-09 17:48 | REPVR ---
PROCEDURE INFORMATION: Exam: CT Head Without Contrast Exam date and time: 05/09/2019 5:13 PM Age: 69 years old Clinical indication: Injury or trauma; Fall; Initial encounter; Blunt trauma (contusions or hematomas); Additional info: Fall on thinners TECHNIQUE: Imaging protocol: Computed tomography of the head without contrast. Radiation optimization: All CT scans at this facility use at least one of these dose optimization techniques: automated exposure control; mA and/or kV adjustment per patient size (includes targeted exams where dose is matched to clinical indication); or iterative reconstruction. COMPARISON: CT Head without contrast 05/05/2019 3:55 PM FINDINGS: Brain: There is no acute intracranial hemorrhage, cerebral edema, or midline shift. Chronic microvascular ischemic changes are seen in the periventricular white matter. Age-related cerebral and cerebellar volume loss is present. Ventricles: Mild ex vacuo dilation of the lateral and third ventricles is noted. Bones/joints: No acute fracture. Sinuses: There is no acute sinusitis. Mastoid air cells: The mastoid air cells are clear. Orbits: The included orbital structures are unremarkable. Soft tissues: Unremarkable. Vasculature: Atherosclerotic calcifications are seen involving the cavernous carotid arteries. IMPRESSION: 1. No acute intracranial abnormality. 2. Atrophy and chronic deep white matter ischemic change. Electronically signed by: You Herbert On 05/09/2019 17:47:52 PM
--- NOTE | 2019-05-09 17:51 | REPVR ---
PROCEDURE INFORMATION: Exam: CT Cervical Spine Without Contrast Exam date and time: 05/09/2019 5:14 PM Age: 69 years old Clinical indication: Injury or trauma; Fall; Initial encounter; Blunt trauma; Additional info: Fall; Neck pain TECHNIQUE: Imaging protocol: Computed tomography images of the cervical spine without contrast. Radiation optimization: All CT scans at this facility use at least one of these dose optimization techniques: automated exposure control; mA and/or kV adjustment per patient size (includes targeted exams where dose is matched to clinical indication); or iterative reconstruction. COMPARISON: CT Spine,cervical w/o contrast 05/05/2019 3:55 PM FINDINGS: Vertebrae: There is straightening of the normal cervical lordosis. No acute fracture is identified. Discs/Spinal canal/Neural foramina: Severe degenerative changes of the cervical spine are present. There is ileus moderate spinal canal stenosis at C3-C4, C4-C5, C5-C6, and C6-C7. Multilevel neural foraminal narrowing from uncinate spurring and facet arthropathy is noted. Soft tissues: Unremarkable. Lungs: Lung apices are normal. IMPRESSION: 1. No acute abnormality. 2. Chronic findings as discussed above. Electronically signed by: You Herbert On 05/09/2019 17:51:03 PM
[2019-05-09] MEDS ORDERED: LIDOCAINE W/EPINEPHRINE 1% 20ML VIAL As Ordered ONE (18:12)
[2019-05-09 18:58] LABS: BASO % 0.3 % (0.0-1.0); EOS # 0.5 10^3/uL (0.0-0.5); EOS % 4.9 % (0.0-3.0); HEMATOCRIT 31.3 % (42.0-52.0); HEMOGLOBIN 9.6 g/dl (13.5-17.5); LYMPH # 0.7 10^3/uL (1.5-5.0); LYMPH % 7.3 % (24.0-44.0); MEAN CORPUSCULAR HEMOGLOBIN 24.2 pg (27.0-33.0); MEAN CORPUSCULAR HGB CONC 30.7 g/dl (32.0-36.5); MONO # 0.8 10^3/uL (0.0-0.8); MONO % 8.2 % (0.0-5.0); NEUTROPHILS # 7.2 10^3/uL (1.5-8.5); NEUTROPHILS % 78.8 % (36.0-66.0); PLATELET COUNT, AUTOMATED 316 10^3/uL (150-450); RED BLOOD COUNT 3.96 10^6/uL (4.30-6.10); WHITE BLOOD COUNT 9.2 10^3/uL (4.0-10.0)
[2019-05-09 19:14] LABS: INR 1.23; PROTHROMBIN TIME 15.2 SECONDS (11.8-14.0)
[2019-05-09 19:15] LABS: PARTIAL THROMBOPLASTIN TIME 34.6 SECONDS (25.0-38.4)
[2019-05-09 19:37] LABS: ALBUMIN 3.4 GM/DL (3.2-5.2); ALT/SGPT 25 U/L (12-78); BILIRUBIN,DIRECT < 0.1 MG/DL (0.0-0.2); BILIRUBIN,TOTAL 0.5 MG/DL (0.2-1.0); BLOOD UREA NITROGEN 41 MG/DL (7-18); CALCIUM LEVEL 9.2 MG/DL (8.8-10.2); CARBON DIOXIDE LEVEL 31 MEQ/L (21-32); CHLORIDE LEVEL 99 MEQ/L (98-107); CK-MB VALUE MASS 1.3 NG/ML (<3.6); CPK CREATINE PHOSPHOKINASE 101 U/L (39-308); CREATININE FOR GFR 1.63 MG/DL (0.70-1.30); FREE T4 1.02 NG/DL (0.76-1.46); GLOMERULAR FILTRATION RATE 44.6 (>42); GLUCOSE, FASTING 136 MG/DL (70-100); MB/CK RELATIVE INDEX 1.29 (< OR =4); POTASSIUM SERUM 5.3 MEQ/L (3.5-5.1); SODIUM LEVEL 136 MEQ/L (136-145); TOTAL PROTEIN 8.2 GM/DL (6.4-8.2); TROPONIN I < 0.02 NG/ML (< 0.10)
--- NOTE | 2019-05-09 20:43 | ECGEPIP ---
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
[2019-05-09] MEDS: HumaLOG INSULIN (NovoLOG) PER UNIT SC SCH (21:00)
[2019-05-09] MEDS ORDERED: GLUCAGON FOR INJ 1 MG VIAL (J1610) SC PRN (21:30)
[2019-05-09] MEDS ORDERED: DEXTROSE 50% 50 ML SYRINGE IV PRN (21:30)
[2019-05-09] MEDS ORDERED: MOM 30ML SUSPENSION UDC PO PRN (21:30)
[2019-05-09] MEDS ORDERED: ACETAMINOPHEN TAB 650MG DOSE (2X325MG) PO PRN (21:30)
[2019-05-09] MEDS ORDERED: MAALOX 30 ML SUSP *UDC PO PRN (21:30)
[2019-05-09] MEDS ORDERED: GLUCOSE 4 GM CHEW TABLET PO PRN (21:30)
--- NOTE | 2019-05-09 21:30 | HPEPDOC ---
[facility] Medical History & Physical Date of Admission May 09, 2019 Date of Service: May 09, 2019 Other Provider Agusto Monreal M.D. Attending Physician: AZRA CHANCE MD History and Physical TIME OF SERVICE: 9:05 PM CHIEF COMPLAINT: Loss of consciousness HISTORY OF PRESENT ILLNESS: This is a 69-year-old male who was admitted on May 04 for evaluation of syncope , which was thought to be due to his medications, therefore his hydralazine was discontinued. This afternoon while shopping, he remembers turning his head to the right and, the next thing he remembered was lying on the floor and being lifted into ambulance. As a result of the fall, he developed a laceration at the right side of his face which was sutured in the ER. He denies having chest pain, shortness of breath, dizziness, or palpitations prior to the fall. Per Dr. Key his EKG showed normal sinus rhythm with a heart rate of 82, while CT of the head and neck were unremarkable. Per discussion with YOBANY Merino, his blood pressure dropped from 134/73, lying down, 111/51, while standing. REVIEW OF SYSTEMS: 12 point review of systems negative except as listed in HPI Chronic systolic/diastolic CHF, EF 45% Chronic hypertension CKD 3 with renal artery stenosis Type 2 Diabetes with neuropathy (A1C 8.9%) KAROLINE. 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 Prostate cancer. Diabetes ALLERGIES: Please see below. HOME MEDICATIONS: Please see below. Vital Signs Date Time Temp Pulse Resp B/P (MAP) Pulse Ox O2 Delivery O2 Flow Rate FiO2 05/09/19 17:08 74 18 132/64 94 Room Air 05/09/19 17:15 98.6 PHYSICAL EXAMINATION: GEN: well-nourished / well developed/ NAD INTEGUMENT: He has sutures above his right cheek / he is not flushed or jau ndiced HEENT: NCAT / lips acyanotic /mucus membranes moist and pink CVS: RRR/NMRG LUNGS: He is not coughing/clear to auscultation bilaterally on room air ABDOMEN: soft & not tender with palpation MSK/EXTREMITIES: range of motion intact in all 4 extremities NEURO: intact / speech is not dysarthric PSYCH: alert and oriented / able to understand and follow all commands LABORATORY DATA: Prothrombin Time 15.2H, Prothromb Time International Ratio 1.23, Activated Partial Thromboplast Time 34.6, Anion Gap 6L, Glomerular Filtration Rate 44.6, Calcium Level 9.2, Total Bilirubin 0.5, Direct Bilirubin < 0.1, Aspartate Amino Transf (AST/SGOT) 39H, Alanine Aminotransferase (ALT/SGPT) 25, Alkaline Phosphatase 171H, Total Creatine Kinase 101, Creatine Kinase MB 1.3, Creatine Kinase MB Relative Index 1.29, Troponin I < 0.02, Total Protein 8.2, Albumin 3.4, Albumin/Globulin Ratio 0.71L, Thyroid Stimulating Hormone (TSH) 3.270, Free Thyroxine 1.02 IMAGING: CT head " IMPRESSION: 1. No acute intracranial abnormality. 2. Atrophy and chronic deep white matter ischemic change. " CT neck " IMPRESSION: 1. No acute abnormality. 2. Chronic findings as discussed above. " ASSESSMENT: Mr. Rosario is a 69-year-old with a past medical history of systolic, diastolic CHF, chronic CAD, HTN, CKD 3 with renal artery stenosis, DM 2, with neuropathy, KAROLINE, CVAs, and unsteady gait who is re-admitted for management of syncope. PLAN: 1. Syncope Likely due to orthostatic hypotension. Orthostats were positive in the ER. EKG done today showed sinus rhythm with first-degree AV block , rate of 82 CT of the head and neck along with troponin were unrevealing Plan: To medical floor/fall precautions/neuro checks every 6 hours/follow-up 2 more troponins/decrease Coreg from 6.25 twice a day to 3.125 twice a day, decrease spironolactone from 25 mg down to 12.5 g daily, decrease Lasix from 80mg 60 mg 3 times a day / the daytime team and consider ordering a carotid ultrasound in the morning to rule out subclavian steal syndrome because he reported losing consciousness after he turned his head to the right 2. ARMEN on CKD 3 Likely prerenal due to dehydration His baseline creatinine is 1.19, today it is 1.63 Since he has both DM and CKD his target BP is BP <130/80 Renal ultrasound done on May 04 " FINDINGS: Right kidney: The right kidney measures 12.9 cm in its cephalocaudad dimension and 6.2 x 7.0 cm in diameter. No mass, cyst or hydronephrosis. Left kidney: The left kidney measures 12.7 cm in its cephalocaudad dimension and 6.8 x 5.3 cm in diameter. No mass, cyst or hydronephrosis. Bladder: The urinary bladder is normal. No ureteral jets are seen. IMPRESSION: Negative renal sonogram." Plan: Is/Os, / will order 500 ml of normal saline/ f/u ulytes for FEUrea, Upro, UCr, 3. Iron Deficiency Anemia His hemoglobin is 9.6 today, which is close to his baseline of about 8.5 His iron panel done a few days ago was consistent with iron deficiency anemia Plan: Venofer x 3 doses / the day time team may consider calling Nephrolgy nephro to discuss if he is a candidate for EPO 4 .Chronic systolic/diastolic CHF, EF 45% Clinically he is euvolemic Plan: Follow up I's and O's/daily weights/restrict salt to 2 g L/ decrease Coreg from 6.25 mg to 3.125mg BID/ I suspect he was isosorbide with hydralazine because he may have not been a candidate for ACEI or ARB bc of his renal impairment, since the hydralazine has been stopped we will also dc the isosorbide, he can 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 Chronic hypertension - Plan: reduced doses of Carvedilol, furosemide, spironolactone / isosorbide/hydralazine combo has been discontinued for now 6. Type 2 Diabetes with neuropathy (A1C 8.9%) His target A1C with multiple co-morbidities is approx 7.5% Plan: f/u accuchecks / hypoglycemia protocol / sliding scale insulin / hold oral anti-glycemics while hospitalized / c/w Tresiba 60 units daily / I suspect he is not on metformin and empagliflozin bc his GFR is low 7. KAROLINE - Plan: own CPAP 8. Chronic CAD s/p CABG - Plan: ASA, Carvediolol, Pravastatin 9. History of CVAs - Plan: ASA & statin 10. Obesity with BMI of 30.8, complicated care. He has coexisting diabetes and KAROLINE. - Plan: he can follow-up with his PCP for a referall to a radial drill operator DVT PROPHYLAXIS: Lovenox DISPOSITION: Home. After more than 2 midnight's stay Home Medications Scheduled Aspirin (Aspir 81) 81 Mg Tablet.dr, 81 MG PO DAILY Carvedilol (Carvedilol) 6.25 Mg Tablet, 6.25 MG PO BID Clopidogrel Bisulfate (Clopidogrel) 75 Mg Tablet, 75 MG PO DAILY Furosemide (Furosemide) 40 Mg Tablet, 80 MG PO TID Gabapentin (Gabapentin) 100 Mg Capsule, 200 MG PO BID Glipizide (Glipizide ER) 5 Mg Tab.er.24, 5 MG PO DAILY Insulin Degludec (Tresiba Flextouch U-100) 100 Unit/1 Ml Insuln.pen, 60 UNIT SC DAILY Insulin Human Lispro (Humalog) 100 Unit/1 Ml Vial, 1 DOSE SC AC SLIDING SCALE Isosorbide Mononitrate (Isosorbide Mononitrate ER) 30 Mg Tab.er.24h, 30 MG PO DAILY Pantoprazole Sodium (Pantoprazole Sodium) 40 Mg Tablet.dr, 40 MG PO DAILY Pravastatin Sodium (Pravastatin Sodium) 40 Mg Tablet, 40 MG PO QHS Spironolactone (Spironolactone) 25 Mg Tablet, 25 MG PO DAILY Scheduled PRN Meclizine HCl (Meclizine HCl) 25 Mg Tablet, 25 MG PO Q8H PRN for DIZZINESS Nitroglycerin (Nitrostat) 0.4 Mg Tab.subl, 0.4 MG SL NITRO PRN for CHEST PAIN Allergies Coded Allergies: No Known Allergies (Unverified , 07/19/18) A-FIB/CHADSVASC A-FIB History Current/History of A-Fib/PAF?: No Current PO Anticoag Therapy: No AZRA CHANCE MD May 09, 2019 21:30
[2019-05-09 22:49] VITALS: BP 117/66
[2019-05-09 23:00] VITALS: BP_SYST 115; BP_SYST 118; BP_SYST 120; BP_DIAS 62; BP_DIAS 65; BP_DIAS 66
[2019-05-09] MEDS ORDERED: CARVedilol 6.25 MG TAB PO SCH (23:15)
[2019-05-09] MEDS ORDERED: NITROGLYCERIN 0.4 MG SUBL TABLET SL PRN (23:15)
[2019-05-09] MEDS ORDERED: MECLIZINE 25 MG TABLET PO PRN (23:15)
[2019-05-09] MEDS ORDERED: FUROSEMIDE 20 MG TAB PO SCH (23:15)
[2019-05-10] VITALS (7 sets, daily range): BP systolic 127–131; BP diastolic 62–70
[2019-05-10] MEDS: PRAVASTATIN 20 MG TAB PO SCH ×2 (00:01→20:41)
[2019-05-10] MEDS: CARVedilol 3.125 MG TAB PO SCH ×2 (00:01→08:59)
[2019-05-10] MEDS ORDERED: NS 500 ML IV ONE (01:45)
[2019-05-10] MEDS ORDERED: IRON SUCROSE 100MG 5ML VIAL (J1756 PER 1MG) IV SCH (01:45)
[2019-05-10 07:00] LABS: HEMATOCRIT 29.6 % (42.0-52.0); HEMOGLOBIN 9.2 g/dl (13.5-17.5); MEAN CORPUSCULAR HEMOGLOBIN 24.6 pg (27.0-33.0); MEAN CORPUSCULAR HGB CONC 31.1 g/dl (32.0-36.5); MEAN CORPUSCULAR VOLUME 79.1 fl (80.0-96.0); PLATELET COUNT, AUTOMATED 294 10^3/uL (150-450); RED BLOOD COUNT 3.74 10^6/uL (4.30-6.10); WHITE BLOOD COUNT 7.1 10^3/uL (4.0-10.0)
[2019-05-10 07:25] LABS: BLOOD UREA NITROGEN 44 MG/DL (7-18); CALCIUM LEVEL 8.9 MG/DL (8.8-10.2); CARBON DIOXIDE LEVEL 31 MEQ/L (21-32); CHLORIDE LEVEL 102 MEQ/L (98-107); CREATININE FOR GFR 1.55 MG/DL (0.70-1.30); GLOMERULAR FILTRATION RATE 47.3 (>42); GLUCOSE, FASTING 161 MG/DL (70-100); POTASSIUM SERUM 3.6 MEQ/L (3.5-5.1); SODIUM LEVEL 139 MEQ/L (136-145); TROPONIN I < 0.02 NG/ML (< 0.10)
[2019-05-10] MEDS: HumaLOG INSULIN (NovoLOG) PER UNIT SC SCH ×4 (08:58→20:27)
[2019-05-10] MEDS: ENOXAPARIN 40 MG/0.4 ML SYRINGE (J1650) SC SCH (08:58)
[2019-05-10] MEDS: FUROSEMIDE 20 MG TAB PO SCH ×3 (08:59→16:51)
[2019-05-10] MEDS: PANTOPRAZOLE 40MG TAB (PROTONIX) PO SCH (08:59)
[2019-05-10] MEDS: ASPIRIN 81 MG ENTERIC TAB PO SCH (08:59)
[2019-05-10] MEDS: CLOPIDOGREL 75 MG TAB PO SCH (08:59)
[2019-05-10] MEDS ORDERED: ENTER DRUG NAME HERE (PATIENT'S OWN MED) SC SCH (09:00)
[2019-05-10] MEDS ORDERED: DOCUSATE SODIUM 100 MG CAP PO SCH (09:00)
[2019-05-10] MEDS ORDERED: ISOSORBIDE MON. (IMDUR) 30 MG XR TAB PO SCH (09:00)
[2019-05-10] MEDS ORDERED: GABAPENTIN 100 MG CAP PO SCH (09:00)
[2019-05-10] MEDS ORDERED: SPIRONOLACTONE 25 MG TAB PO SCH (09:00)
--- NOTE | 2019-05-10 11:24 | IPNPDOC ---
Text Note Date of Service The patient was seen on 05/10/19. NOTE S: Pt seen this morning sitting comfortably in his chair. He states that he has not had any feelings of dizziness or lightheadedness since presenting to the ER last night. He states that these episodes normally occur multiple times daily. He states that he is feeling at his baseline right now. During discussion with patient today, he stated that he had an aortic valve repl acement back in October 2015 at [facility] in [place], [place]. The aortic valve was replaced with a bovine valve. In addition, the patient states that he had a loop recorder placed shortly after his aortic valve replacement. However, he does not know why and has not had recent follow-up. Records obtained from [facility] [place], Dr. Gomez's office. Echo done in September 2018 shows mild concentric left ventricular hypertrophy with normal systolic function with an estimated 55-60% ejection fraction, moderate diastolic dysfunction is present. Left and right atrium are noted to be mildly dilated. The atrial septum is intact. A bioprosthetic aortic valve is present. The valve is well-seated with normal leaflet excursion. No evidence of aortic insufficiency or paravalvular leaks. Mild mitral insufficiency is present. Mild tricuspid insufficiency is present. Moderate pulmonary hypertension is present with estimated pulmonary artery pressure of 55-60 mmHg. Additional medical history, was recovered from obtain records not noted in initial H&P. Patient noted to have coronary artery bypass graft surgery 2. Bypass graft done over Left Anterior Descending Artery as well as the Posterior Descending Branch of the right Coronary Artery Back in August 2016. Patient is n oted to have a loop recorder. However, on last outpatient cardiology follow-up states that the patient has not been transmitting his loop recorder. Denies CP/SOB/JIMÉNEZ/N/V/F O: GEN: Adult male who appears stated age seen sitting comfortably in chair INTEGUMENT: Well healing laceration under R eye with intact sutures. Pt has poorly healing abrasions on his LE bilaterally. HEENT: Well healing laceration under right eye, lips acyanotic, MMM CVS: RRR, II/ systolic ejection murmur herd over the 2nd intercostal space on the R side with no radiation to the carotids. LUNGS: CTA bilaterally w/o rales, rhonchi, or wheezes ABDOMEN: Normal BS in all 4 quad, SNT, no organomegaly noted, no guarding/ rigidity/rebound tenderness MSK/EXTREMITIES: range of motion intact in all 4 extremities, no visible edema NEURO: intact / speech is not dysarthric PSYCH: alert and oriented / able to understand and follow all commands A: Mr. 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 P: 1. Syncope, likely cardiogenic in origin -Orthostats were positive in the ER. -EKG done yesterday showed sinus rhythm with first-degree AV block , rate of 82 -Repeat EKG done today shows no changes from prior on 05/04 -Echo ordered for today and waiting to be read -Patient placed on telemetry periodically reviewedno acute events -TSH ordered to rule out hypo-/hyperthyroidism -A.m. cortisol ordered to r/o Adrenal insufficiency -Brain MRI ordered to rule out thromboembolic event involving posterior circulation -Hold Coreg, spironolactone, gabapentin on the chance that these may be contributing to his syncopal episodes 2. ARMEN on CKD 3 -Likely prerenal due to dehydration -His baseline creatinine is 1.19, today it is 1.55 -Since he has both DM and CKD his target BP is BP <130/80 -Renal ultrasound done on May 04 showed negative renal sonogram. -Seems to be improving with IV fluids. We'll continue to reassess 3. Iron Deficiency Anemia His hemoglobin is 9.2 today, which is close to his baseline of about 8.5 His iron panel done a few days ago was consistent with iron deficiency anemia Plan: Venofer x 3 doses 4 .Chronic systolic/diastolic ischemic CHF, EF 45% well optimized -Clinically he is euvolemic -Follow IO's -Restrictive salt diet to less than 2 g per day -Discontinue Coreg/spironolactone 5. Chronic hypertension - -Discontinue home antihypertensive medications for now 6. Type 2 Diabetes with neuropathy (A1C 8.9%) -His target A1C with multiple co-morbidities is approx 7.5% -f/u accuchecks / hypoglycemia protocol / sliding scale insulin / hold oral anti-glycemics while hospitalized 7. KAROLINE -Uses own CPAP at night 8. Chronic CAD s/p CABG - -continue ASA, Pravastatin -D/C Coreg 9. History of CVAs -ASA & statin -Patient placed on aspiration/fall precautions 10. Obesity with BMI of 30.8, complicated care. He has coexisting diabetes and KAROLINE. - Plan: he can follow-up with his PCP for a referall to a welder 2nd shift DVT PROPHYLAXIS: Lovenox DISPOSITION: Discharge home. Pending clinical improvement VS,Vadimbone, I+O VS, Fishbone, I+O Laboratory Tests 05/09/19 18:49 05/10/19 06:30 Vital Signs Date Time Temp Pulse Resp B/P (MAP) Pulse Ox O2 Delivery O2 Flow Rate FiO2 05/10/19 08:59 74 129/65 05/10/19 06:00 98.8 19 93 Room Air I&O- Last 24 Hours up to 6 AM 05/10/19 06:00 Intake Total 1070 ml Balance 1070 ml GME ATTESTATION GME ATTESTATION My faculty preceptor for this patient encounter was physically present during the encounter and was fully available. All aspects of the patient interview, examination, medical decision making process, and medical care plan development were reviewed and approved by the faculty preceptor. The faculty preceptor is aware and concurs with the plan as stated in the body of this note and will attest to such by his/her cosignature. RICKY YI-3 May 10, 2019 11:24
--- NOTE | 2019-05-10 13:15 | ECGEPIP ---
[facility] Test Date: 2019-05-10 Pat Name: MARIE FLYNN Department: Room: S4575-55 Gender: Male Form Setter: GARY : 1950 Requested By: RANDY CARRANZA Order Number: [id number] Reading MD: Anupama Vásquez Measurements Intervals [place] Rate: 74 P: MI: 0 QRS: -24 QRSD: 104 T: 95 QT: 423 QTc: 470 Interpretive Statements SINUS RHYTHM WITH 1ST DEGREE BLOCK WITH ABERRANT CONDUCTION OR VENTRICULAR PRE PREMATURE COMPLEXES LEFT AXIS DEVIATION LEFT VENTRICULAR HYPERTROPHY AND ST-T CHANGE ECTOPY NEW C/W 05/09/19 Electronically Signed on 05-10-2019 13:15:21 EDT by Anupama Vásquez
[2019-05-10 14:41] LABS: TOTAL PROTEIN,RANDOM URINE 25.5 MG/DL (0.0-12.0)
[2019-05-10 14:41] LABS: AMPHETAMINES LEVEL URINE NEGATIVE (NEGATIVE); BARBITURATES URINE NEGATIVE (NEGATIVE); BENZODIAZEPINES URINE NEGATIVE (NEGATIVE); CANNABINOIDS URINE NEGATIVE (NEGATIVE); COCAINE METABOLITE URINE NEGATIVE (NEGATIVE); METHADONE URINE NEGATIVE (NEGATIVE); OPIATES URINE NEGATIVE (NEGATIVE); PHENCYCLIDINE URINE NEGATIVE (NEGATIVE)
[2019-05-11 02:00] VITALS: BP 134/77
[2019-05-11 06:00] VITALS: BP 127/70
[2019-05-11 08:24] LABS: BASO # 0.1 10^3/uL (0.0-0.2); BASO % 0.8 % (0.0-1.0); EOS # 0.4 10^3/uL (0.0-0.5); EOS % 6.9 % (0.0-3.0); HEMATOCRIT 31.6 % (42.0-52.0); HEMOGLOBIN 9.9 g/dl (13.5-17.5); LYMPH # 0.7 10^3/uL (1.5-5.0); LYMPH % 10.8 % (24.0-44.0); MEAN CORPUSCULAR HEMOGLOBIN 24.6 pg (27.0-33.0); MEAN CORPUSCULAR HGB CONC 31.3 g/dl (32.0-36.5); MEAN CORPUSCULAR VOLUME 78.4 fl (80.0-96.0); MONO # 0.7 10^3/uL (0.0-0.8); NEUTROPHILS # 4.3 10^3/uL (1.5-8.5); PLATELET COUNT, AUTOMATED 318 10^3/uL (150-450); RED BLOOD COUNT 4.03 10^6/uL (4.30-6.10); WHITE BLOOD COUNT 6.1 10^3/uL (4.0-10.0)
--- NOTE | 2019-05-11 09:03 | REPVR ---
PROCEDURE INFORMATION: Exam: MR Head Without Contrast Exam date and time: 05/10/2019 10:09 PM Age: 69 years old Clinical indication: Syncope and collapse TECHNIQUE: Imaging protocol: MR of the head without contrast. COMPARISON: MRI-Brain without Contrast 11/22/2018 4:18 PM FINDINGS: Brain: There is no extra-axial collection or intra-axial mass. Moderate diffuse volume loss is within the range normal for patient age. Increased T2/FLAIR hyperintensity within the periventricular and subcortical white matter and substance of the leeanna is nonspecific but typically reflects small-vessel ischemia in this age group. There is no diffusion restriction. Ventricles: Normal. No ventriculomegaly. Bones/joints: Unremarkable. Soft tissues: Unremarkable. Sinuses: There is mild ethmoid and maxillary sinus mucosal thickening. Mastoid air cells: There is fluid opacification left mastoid air cells. Orbits: Unremarkable. IMPRESSION: No acute findings. Chronic age related changes. Electronically signed by: Susanne Simental On 05/11/2019 09:03:25 AM
[2019-05-11] MEDS: ENOXAPARIN 40 MG/0.4 ML SYRINGE (J1650) SC SCH (09:45)
[2019-05-11] MEDS: IRON SUCROSE 100 MG in NS 100 ML IV SCH (09:46)
[2019-05-11] MEDS: HumaLOG INSULIN (NovoLOG) PER UNIT SC SCH ×4 (09:46→21:00)
[2019-05-11] MEDS: CLOPIDOGREL 75 MG TAB PO SCH (09:47)
[2019-05-11] MEDS: ASPIRIN 81 MG ENTERIC TAB PO SCH (09:47)
[2019-05-11] MEDS: FUROSEMIDE 20 MG TAB PO SCH ×3 (09:47→18:23)
[2019-05-11] MEDS: PANTOPRAZOLE 40MG TAB (PROTONIX) PO SCH (09:47)
[2019-05-11 10:00] VITALS: BP 169/80
--- NOTE | 2019-05-11 10:11 | ECGEPIP ---
[facility] Test Date: 2019-05-11 Pat Name: MARIE FLYNN Department: Room: X1417-81 Gender: Male Chemotherapist: DORENE : 1950 Requested By: RANDY CARRANZA Order Number: [id number] Reading MD: Anupama Vásquez Measurements Intervals [place] Rate: 80 P: 35 OK: 304 QRS: -27 QRSD: 102 T: 114 QT: 393 QTc: 454 Interpretive Statements SINUS RHYTHM WITH FIRST DEGREE AV BLOCK LEFT AXIS DEVIATION LEFT VENTRICULAR HYPERTROPHY AND ST-T CHANGE ECTOPY ABSENT C/W 05/10/19 Electronically Signed on 05-11-2019 10:10:30 EDT by Anupama Vásquez
--- NOTE | 2019-05-11 13:36 | IPNPDOC ---
Text Note Date of Service The patient was seen on 05/11/19. NOTE S: Pt seen this morning laying in bed. He states that he has not had any feelings of dizziness or lightheadedness since being admitted to the hospital. He states that these episodes normally occur multiple times daily. He states that he is feeling at his baseline right now. Patient's records received yesterday did not include patient's loop recorder history. Patient's medical records were requested from the patient's cardiothoracic surgeon, Dr. Anibal Gomes in [place]. Awaiting fax to see if the loop recorder has caught any arrhythmia.. Unfortunately, the patient has not had his loop recorder checked since it was placed. Denies CP/SOB/JIMÉNEZ/N/V/F O: GEN: Adult male who appears stated age seen lying comfortably in bed, no acute distress INTEGUMENT: Well healing laceration under R eye with intact sutures. Pt has poorly healing abrasions on his LE bilaterally. HEENT: Well healing laceration under right eye, lips acyanotic, MMM CVS: RRR, II/ systolic ejection murmur herd over the 2nd intercostal space on the R side with no radiation to the carotids. LUNGS: CTA bilaterally w/o rales, rhonchi, or wheezes ABDOMEN: Normal BS in all 4 quad, SNT, no organomegaly noted, no guarding/rigidity/rebound tenderness MSK/EXTREMITIES: range of motion intact in all 4 extremities, no visible edema NEURO: intact / speech is not dysarthric PSYCH: alert and oriented / able to understand and follow all commands A: Mr. 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 Patient most likely needs placement as he is not able to take care of himself as reported by home health aide. P: 1. Syncope, likely cardiogenic in origin -Orthostats were positive in the ER. -EKG done yesterday showed sinus rhythm with first-degree AV block , rate of 82 -Repeat EKG done yesterday shows no changes from prior on 05/04, repeat EKG done today consistent with prior EKGs -Echo performed yesterday and waiting to be read -Patient placed on telemetry periodically reviewedtelemetry showed few episodes of V. tach, but upon review seem to be artifact -TSH within normal limits -A.m. cortisol was within normal limits. Rule out adrenal insufficiency -Brain MRI showed chronic age-related changes with no acute thromboembolic event -Continue to Hold Coreg, spironolactone, gabapentin on the chance that these may be contributing to his syncopal episodes -Upon talking with home health aide staff at [facility] they state patient has been properly dosing his insulin as he is not able to visually see how much medication he is administered. The patient's etiology is unlikely due to hypoglycemia as his events occur briefly usually during exertion and he is able to wake up and function normally after a brief episode. In addition, she denies any racing heart, or episodes of diaphoresis during these events. -PT/OT and home evaluation pending. 2. ARMEN on CKD 3 -Likely prerenal due to dehydration -His baseline creatinine is 1.19, yesterday was 1.55 -Since he has both DM and CKD his target BP is BP <130/80 -Renal ultrasound done on May 04 showed negative renal sonogram. -Seems to be improving with IV fluids. We'll continue to reassess 3. Iron Deficiency Anemia His hemoglobin is 9.2 today, which is close to his baseline of about 8.5 His iron panel done a few days ago was consistent with iron deficiency anemia Plan: Venofer x 3 doses afterwards we'll transition to PO iron supplementation 4 .Chronic systolic/diastolic ischemic CHF, EF 45% well optimized -Clinically he is euvolemic -Follow IO's -Restrictive salt diet to less than 2 g per day -Discontinue Coreg/spironolactone 5. Chronic hypertension - -Discontinue home antihypertensive medications for now 6. Type 2 Diabetes with neuropathy (A1C 8.9%) -His target A1C with multiple co-morbidities is approx 7.5% -f/u accuchecks / hypoglycemia protocol / sliding scale insulin / hold oral anti-glycemics while hospitalized 7. KAROLINE -Uses own CPAP at night 8. Chronic CAD s/p CABG - -continue ASA, Pravastatin -D/C Coreg 9. History of CVAs -ASA & statin -Patient placed on aspiration/fall precautions 10. Obesity with BMI of 30.8, complicated care. He has coexisting diabetes and KAROLINE. - Plan: he can follow-up with his PCP for a referral to a store keeper DVT PROPHYLAXIS: Lovenox DISPOSITION: Placement, pending clinical improvement. VS,Fishbone, I+O VS, Fishbone, I+O Laboratory Tests 05/11/19 07:07 Vital Signs Date Time Temp Pulse Resp B/P (MAP) Pulse Ox O2 Delivery O2 Flow Rate FiO2 05/11/19 10:00 96.1 81 17 169/80 (109) 97 Room Air I&O- Last 24 Hours up to 6 AM 05/11/19 06:00 Intake Total 1530 ml Output Total 100 ml Balance 1430 ml GME ATTESTATION GME ATTESTATION My faculty preceptor for this patient encounter was physically present during the encounter and was fully available. All aspects of the patient interview, examination, medical decision making process, and medical care plan development were reviewed and approved by the faculty preceptor. The faculty preceptor is aware and concurs with the plan as stated in the body of this note and will attest to such by his/her cosignature. ATTENDING NOTE Patient was seen and examined by me this morning with the residents. Agree with the above assessment and plan RICKY YI OMS-3 May 11, 2019 13:36 RANDY CARRANZA MD May 11, 2019 16:58 HERMINIO HAYES MD May 12, 2019 13:12
[2019-05-11 14:00] VITALS: BP 157/75
[2019-05-11 18:00] VITALS: BP 177/81
[2019-05-11] MEDS: PRAVASTATIN 20 MG TAB PO SCH (21:14)
[2019-05-11 22:00] VITALS: BP 167/80
--- NOTE | 2019-05-11 23:19 | ECHO ---
DATE OF PROCEDURE: 05/10/2019 AGE: 69 GENDER: Male HEIGHT: 71 inches WEIGHT: 222 pounds BODY SURFACE AREA: 2.2 m2 PATIENT LOCATION: Inpatient, [address] [place] [address], room 4224 REFERRING PHYSICIAN: Dr. Alondra Rose INDICATION: Syncope. Post aortic valve replacement. 2-D MEASUREMENTS: RV: 4.4 cm LV: 4.5 cm Septum: 1.2 cm Posterior wall: 1.2 cm Aortic root: 3.6 cm LA: 4.5 cm LVEF: 70% DOPPLER MEASUREMENTS: AV: 2.47 m/s LVOT: 0.84 m/s LVOT diameter: 2.0 cm AV mean gradient: 15 mmHg Dimensionless index: 0.35 MV-E: 142, A: 130, EA ratio: 1.1 Early mitral deceleration time: 142 ms PV: 0.95 m/s Pulmonary artery acceleration time: 77 ms RVSP: 44 mmHg IVC: 2.6 cm COMMENTS Normal sinus rhythm without intraventricular conduction disturbance. First-degree AV block. M-mode and two-dimensional echocardiography was performed with pulsed, continuous wave, color flow and tissue Doppler studies. Borderline concentric left ventricle hypertrophy with hyperkinetic wall motion. Moderately dilated left atrium with a grade 2 LV diastolic dysfunction. Mildly dilated right heart chambers with normal wall motion with Doppler evidence of at least moderate pulmonary hypertension. Moderately dilated IVC with reduced respiratory collapse in keeping with an elevated central venous pressure/right heart failure. Apparently appropriate function of a bioprosthetic aortic valve with no apparent insufficiency. Normal aortic diameters. Mild degenerative changes of the mitral valvular apparatus with no significant inflow tract obstruction but at least mild and possibly moderate mitral insufficiency. Normal appearing tricuspid valve with mild - moderate insufficiency. No apparent intracardiac mass or pericardial effusion.
[2019-05-12 06:00] VITALS: BP 149/75
[2019-05-12 06:54] LABS: HEMATOCRIT 32.5 % (42.0-52.0); HEMOGLOBIN 10.3 g/dl (13.5-17.5); MEAN CORPUSCULAR HEMOGLOBIN 24.6 pg (27.0-33.0); MEAN CORPUSCULAR HGB CONC 31.7 g/dl (32.0-36.5); MEAN CORPUSCULAR VOLUME 77.6 fl (80.0-96.0); PLATELET COUNT, AUTOMATED 294 10^3/uL (150-450); RED BLOOD COUNT 4.19 10^6/uL (4.30-6.10); WHITE BLOOD COUNT 6.8 10^3/uL (4.0-10.0)
[2019-05-12 07:22] LABS: CALCIUM LEVEL 9.1 MG/DL (8.8-10.2); CREATININE FOR GFR 1.35 MG/DL (0.70-1.30); GLOMERULAR FILTRATION RATE 55.5 (>42); POTASSIUM SERUM 3.8 MEQ/L (3.5-5.1)
[2019-05-12] MEDS: HumaLOG INSULIN (NovoLOG) PER UNIT SC SCH ×4 (07:56→21:00)
[2019-05-12] MEDS: ASPIRIN 81 MG ENTERIC TAB PO SCH (09:09)
[2019-05-12] MEDS: CLOPIDOGREL 75 MG TAB PO SCH (09:09)
[2019-05-12] MEDS: FUROSEMIDE 20 MG TAB PO SCH ×3 (09:09→17:13)
[2019-05-12] MEDS: IRON SUCROSE 100 MG in NS 100 ML IV SCH (09:10)
[2019-05-12] MEDS: ENOXAPARIN 40 MG/0.4 ML SYRINGE (J1650) SC SCH (09:10)
[2019-05-12] MEDS: PANTOPRAZOLE 40MG TAB (PROTONIX) PO SCH (09:10)
[2019-05-12] MEDS ORDERED: TRES1INJ2 SC (11:11)
[2019-05-12] MEDS ORDERED: VICT18IN SC (11:11)
[2019-05-12 14:00] VITALS: BP 123/61
--- NOTE | 2019-05-12 16:28 | IPNPDOC ---
Date Seen The patient was seen on 05/12/19. Progress Note SUBJECTIVE: Pt seen and examined sitting at the bedside this morning. He notes that he realized his insulin dosing may be inappropriate for the meals he is eating and perhaps his fainting may be due to hypoglycemia. He understands that he may be taking too much insulin. He asks for help with adjusting his regimen prior to discharge. Otherwise, he has no complaints other than some loose stools. Denies CP/SOB/JIMÉNEZ/N/V/F OBJECTIVE: GEN: Adult male who appears stated age seen lying comfortably in bed, no acute distress INTEGUMENT: Well healing laceration under R eye with intact sutures. Pt has poorly healing abrasions on his LE bilaterally. HEENT: Well healing laceration under right eye, lips acyanotic, MMM CVS: RRR, II/ systolic ejection murmur herd over the 2nd intercostal space on the R side with no radiation to the carotids. LUNGS: CTA bilaterally w/o rales, rhonchi, or wheezes ABDOMEN: Normal BS in all 4 quad, SNT, no organomegaly noted, no guarding/rigidity/rebound tenderness MSK/EXTREMITIES: range of motion intact in all 4 extremities, no visible edema NEURO: intact / speech is not dysarthric PSYCH: alert and oriented / able to understand and follow all commands ASSESSMENT: Mr. 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 Patient most likely needs placement as he is not able to take care of himself as reported by home health aide. PLAN: 1. Syncope, possibly cardiogenic in origin, or repeated episodes of hypoglycemia due to inappropriate administration of insulin -Orthostats were positive in the ER. -EKG done yesterday showed sinus rhythm with first-degree AV block , rate of 82 -Repeat EKG done yesterday shows no changes from prior on 05/04, repeat EKG done today consistent with prior EKGs -Echo demonstrates grade 1 diastolic dysfunction, otherwise normal -Telemetry normal, other than few short episodes of V-tach -TSH within normal limits -A.m. cortisol was within normal limits. Rule out adrenal insufficiency -Brain MRI showed chronic age-related changes with no acute thromboembolic event -Continue to Hold Coreg, spironolactone, gabapentin on the chance that these may be contributing to his syncopal episodes -PT recommendation: Home. 2. ARMEN on CKD 3: resolved -Likely prerenal -It appears he is at his baseline Cr, 1.35 -Since he has both DM and CKD his target BP is BP <130/80 -Renal ultrasound done on May 04 showed negative renal sonogram. 3. Iron Deficiency Anemia His hemoglobin is 10.3 today Will transition to oral iron supplementation on discharge Patient will also need to arrange colonoscopy on discharge 4 .Chronic systolic/diastolic ischemic CHF, EF 45% well optimized -Clinically he is euvolemic -Follow IO's -Restrictive salt diet to less than 2 g per day -Holding Coreg/spironolactone 5. Chronic hypertension - BPs stable -Holding home antihypertensive medications for now 6. Type 2 Diabetes with neuropathy (A1C 8.9%) -His target A1C with multiple co-morbidities is approx 7.5% -f/u accuchecks / hypoglycemia protocol / sliding scale insulin / hold oral anti-glycemics while hospitalized 7. KAROLINE -Uses own CPAP at night 8. Chronic CAD s/p CABG - -continue ASA, Pravastatin -D/C Coreg 9. History of CVAs -ASA & statin -Patient placed on aspiration/fall precautions 10. Obesity with BMI of 30.8, complicated care. He has coexisting diabetes and KAROLINE. - Plan: he can follow-up with his PCP for a referral to a adult education teacher DVT PROPHYLAXIS: Lovenox DISPOSITION: Patient needs diabetic teaching and close follow up with PCP after discharge. Disposition is likely home in 24-48 hours VS, I&O, 24H, [facility] Vital Signs/I&O Vital Signs Date Time Temp Pulse Resp B/P (MAP) Pulse Ox O2 Delivery O2 Flow Rate FiO2 05/12/19 14:00 97.5 89 18 123/61 (81) 96 Room Air I&O- Last 24 Hours up to 6 AM 05/12/19 06:00 Intake Total 1994 ml Balance 1994 ml Laboratory Data 24H LABS Laboratory Tests 2 05/11/19 16:35: Bedside Glucose (Misc Panel) 216H 05/11/19 20:39: Bedside Glucose (Misc Panel) 202H 05/12/19 06:43: Anion Gap 8, Glomerular Filtration Rate 55.5, Calcium Level 9.1 05/12/19 06:44: Nucleated Red Blood Cells % (auto) 0.0 05/12/19 12:14: Bedside Glucose (Misc Panel) 236H CBC/BMP Laboratory Tests 05/12/19 06:43 05/12/19 06:44 GME ATTESTATION GME ATTESTATION My faculty preceptor for this patient encounter was physically present during the encounter and was fully available. All aspects of the patient interview, examination, medical decision making process, and medical care plan development were reviewed and approved by the faculty preceptor. The faculty preceptor is aware and concurs with the plan as stated in the body of this note and will attest to such by his/her cosignature. ATTENDING NOTE Patient was seen and examined by me this morning with the residents. Agree with the above assessment and plan RANDY CARRANZA MD May 12, 2019 16:28 HERMINIO HAYES MD May 13, 2019 08:45
[2019-05-12] MEDS: PRAVASTATIN 20 MG TAB PO SCH (21:48)
[2019-05-12 22:00] VITALS: BP 135/75
[2019-05-13 06:00] VITALS: BP 119/60
[2019-05-13 07:12] LABS: CALCIUM LEVEL 8.9 MG/DL (8.8-10.2); CREATININE FOR GFR 1.29 MG/DL (0.70-1.30); GLOMERULAR FILTRATION RATE 58.5 (>42); POTASSIUM SERUM 3.8 MEQ/L (3.5-5.1)
[2019-05-13] MEDS: HumaLOG INSULIN (NovoLOG) PER UNIT SC SCH ×2 (08:30→12:10)
[2019-05-13] MEDS: PANTOPRAZOLE 40MG TAB (PROTONIX) PO SCH (08:30)
[2019-05-13] MEDS: ENOXAPARIN 40 MG/0.4 ML SYRINGE (J1650) SC SCH (08:31)
[2019-05-13] MEDS: FUROSEMIDE 20 MG TAB PO SCH ×2 (08:31→12:09)
[2019-05-13] MEDS: CLOPIDOGREL 75 MG TAB PO SCH (08:31)
[2019-05-13] MEDS: ASPIRIN 81 MG ENTERIC TAB PO SCH (08:31)
--- NOTE | 2019-05-13 12:26 | DS.PDOC ---
Discharge Summary General Date of Admission May 09, 2019 at 21:24 Date of Discharge May 13, 2019 Attending Physician: HERMINIO HAYES MD Discharge Summary PROCEDURES PERFORMED DURING STAY: [None]. ADMITTING DIAGNOSES: 1. Syncope 2. ARMEN on CKD 3 3. Iron deficiency anemia 4. Chronic systolic/diastolic CHF, EF 45% 5. HTN 6. DM2, poorly controlled 7. KAROLINE DISCHARGE DIAGNOSES: 1. DM2, poorly controlled with episodes of hypolgycemia 2/2 insulin overuse COMPLICATIONS/CHIEF COMPLAINT: Syncope And Collapse. HISTORY OF PRESENT ILLNESS: This is a 69-year-old male who was admitted on May 04 for evaluation of syncope , which was thought to be due to his medications, therefore his hydralazine was discontinued. This afternoon while shopping, he remembers turning his head to the right and, the next thing he remembered was lying on the floor and being lifted into ambulance. As a result of the fall, he developed a laceration at the right side of his face which was sutured in the ER. He denies having chest pain, shortness of breath, dizziness, or palpitations prior to the fall. Per Dr. Key his EKG showed normal sinus rhythm with a heart rate of 82, while CT of the head and neck were unremarkable. Per discussion with YOBANY Merino, his blood pressure dropped from 134/73, lying down, 111/51, while standing. HOSPITAL COURSE: Patient was admitted with history of syncope of unknown etiology. He underwent workup for syncope, including continuous telemetry, echocardiogram, cervical spice CT and brain MRI. Complete cardiac and neurologic workup was negative. Upon further questioning, patient admitted to some indiscretion with insulin dosing and only eating 1 meal a day at home. There was concern that his episodes of syncope are likely related to hypoglycemia given that he may have been overdosing on his Tresiba long acting insulin. The patient also worked with PT during his hospitalization and was deemed safe to return home. He was discharged on a decreased dose of Tresiba, as well as new prescription for Victoza, and was told to follow up with his PCP Sunny Monreal. Of note, the patient had a loop recorder placed by Insulation Machine Operator Dr. Gomes at [facility] but has not yet transmitted any information from it. This will need to be done after discharge. DISCHARGE MEDICATIONS: Please see below. ALLERGIES: Please see below. PHYSICAL EXAMINATION ON DISCHARGE: VITAL SIGNS: Please see below. GEN: Adult male who appears stated age seen lying comfortably in bed, no acute distress INTEGUMENT: Well healing laceration under R eye with intact sutures. Pt has poorly healing abrasions on his LE bilaterally. HEENT: Well healing laceration under right eye, lips acyanotic, MMM CVS: RRR, II/ systolic ejection murmur herd over the 2nd intercostal space on the R side with no radiation to the carotids. LUNGS: CTA bilaterally w/o rales, rhonchi, or wheezes ABDOMEN: Normal BS in all 4 quad, SNT, no organomegaly noted, no guarding/rigidity/rebound tenderness MSK/EXTREMITIES: range of motion intact in all 4 extremities, no visible edema NEURO: intact / speech is not dysarthric PSYCH: alert and oriented / able to understand and follow all commands LABORATORY DATA: Please see below. IMAGING: BRAIN MRI: IMPRESSION: No acute findings. Chronic age related changes. CT SPINE: IMPRESSION: 1. No acute abnormality. 2. Chronic findings as discussed above. CT HEAD: IMPRESSION: 1. No acute intracranial abnormality. 2. Atrophy and chronic deep white matter ischemic change. PROGNOSIS: fair ACTIVITY: [As tolerated]. DIET: 2g sodium DISCHARGE PLAN: home, home care referral in place DISPOSITION: . DISCHARGE INSTRUCTIONS: 1. Follow up with PCP within 7 days ITEMS TO FOLLOWUP ON ON OUTPATIENT: 1. none DISCHARGE CONDITION: [Stable]. TIME SPENT ON DISCHARGE: Greater than 35 minutes. Vital Signs/I&Os Vital Signs Date Time Temp Pulse Resp B/P (MAP) Pulse Ox O2 Delivery O2 Flow Rate FiO2 05/13/19 06:00 99.3 94 20 119/60 (79) 98 05/12/19 14:00 Room Air I&O- Last 24 Hours up to 6 AM 05/13/19 05:59 Intake Total 1335 ml Output Total 0 ml Balance 1335 ml Laboratory Data Labs 24H Laboratory Tests 2 05/12/19 12:14: Bedside Glucose (Misc Panel) 236H 05/12/19 16:38: Bedside Glucose (Misc Panel) 224H 05/12/19 20:30: Bedside Glucose (Misc Panel) 214H 05/13/19 05:57: Anion Gap 7L, Glomerular Filtration Rate 58.5, Calcium Level 8.9 05/13/19 11:41: Bedside Glucose (Misc Panel) 238H CBC/BMP Laboratory Tests 05/13/19 05:57 FSBS Laboratory Tests Test 05/12/19 12:14 05/12/19 16:38 05/12/19 20:30 05/13/19 11:41 Range/Units Bedside Glucose (Misc Panel) 236 224 214 238 83-110 MG/DL Discharge Medications Scheduled Aspirin (Aspir 81) 81 Mg Tablet.dr, 81 MG PO DAILY, (Reported) Carvedilol (Carvedilol) 6.25 Mg Tablet, 6.25 MG PO BID, (Reported) Clopidogrel Bisulfate (Clopidogrel) 75 Mg Tablet, 75 MG PO DAILY, (Reported) Furosemide (Furosemide) 40 Mg Tablet, 80 MG PO TID, (Reported) Gabapentin (Gabapentin) 100 Mg Capsule, 200 MG PO BID, (Reported) Insulin Degludec (Tresiba Flextouch U-100) 100 Unit/1 Ml Insuln.pen, 30 UNIT SC DAILY Isosorbide Mononitrate (Isosorbide Mononitrate ER) 30 Mg Tab.er.24h, 30 MG PO DAILY, (Reported) Liraglutide (Victoza 2-Thaddeus) 0.6 Mg/0.1 Ml Pen.injctr, 0.6 MG SC DAILY Pantoprazole Sodium (Pantoprazole Sodium) 40 Mg Tablet.dr, 40 MG PO DAILY, (Reported) Pravastatin Sodium (Pravastatin Sodium) 40 Mg Tablet, 40 MG PO QHS, (Reported) Spironolactone (Spironolactone) 25 Mg Tablet, 25 MG PO DAILY, (Reported) Scheduled PRN Meclizine HCl (Meclizine HCl) 25 Mg Tablet, 25 MG PO Q8H PRN for DIZZINESS, (Reported) Nitroglycerin (Nitrostat) 0.4 Mg Tab.subl, 0.4 MG SL NITRO PRN for CHEST PAIN, (Reported) Allergies Coded Allergies: No Known Allergies (Unverified , 07/19/18) GME ATTESTATION GME ATTESTATION My faculty preceptor for this patient encounter was physically present during the encounter and was fully available. All aspects of the patient interview, examination, medical decision making process, and medical care plan development were reviewed and approved by the faculty preceptor. The faculty preceptor is aware and concurs with the plan as stated in the body of this note and will attest to such by his/her cosignature. GME ATTESTATION GME ATTESTATION My faculty preceptor for this patient encounter was physically present during the encounter and was fully available. All aspects of the patient interview, examination, medical decision making process, and medical care plan development were reviewed and approved by the faculty preceptor. The faculty preceptor is aware and concurs with the plan as stated in the body of this note and will attest to such by his/her cosignature. ATTENDING NOTE Patient was seen and examined by me this morning with the residents. Agree with the above assessment and plan RANDY CARRANZA MD May 13, 2019 12:26 HERMINIO HAYES MD May 13, 2019 12:33
== END 2019-05-13 13:58 | disposition home health service (06) | DRG 638 ==
LOC: M ED 17:03 → M ED INP 21:24 → ENRESERVTM 22:15 → ENRESERVDT 22:15 → M MSPAV 22:49
PROVIDERS: ADMIT Internal Medicine; ATTEND Internal Medicine
DX: E11.649 Type 2 diabetes mellitus with hypoglycemia without coma (principal); I50.42 Chronic combined systolic (congestive) and diastolic (congestive) heart failure; N17.9 Acute kidney failure, unspecified; I95.1 Orthostatic hypotension; N18.3 Chronic kidney disease, stage 3 (moderate); D50.9 Iron deficiency anemia, unspecified; Z79.82 Long term (current) use of aspirin; Z79.899 Other long term (current) drug therapy; Z79.4 Long term (current) use of insulin; I44.0 Atrioventricular block, first degree; E11.40 Type 2 diabetes mellitus with diabetic neuropathy, unspecified; G47.33 Obstructive sleep apnea (adult) (pediatric); I25.10 Atherosclerotic heart disease of native coronary artery without angina pectoris; Z95.1 Presence of aortocoronary bypass graft; E66.9 Obesity, unspecified; Z68.30 Body mass index [BMI] 30.0-30.9, adult; Z86.73 Personal history of transient ischemic attack (TIA), and cerebral infarction without residual deficits; I27.20 Pulmonary hypertension, unspecified

== ENCOUNTER → 2019-05-23 | Outpatient (REF) | payer MEDICARE, MEDICAID ==
[~2019-05-23] MED LIST changes: +VICT18IN SC
[2019-05-24 10:10] LABS: CALCIUM LEVEL 8.9 MG/DL (8.8-10.2); CREATININE FOR GFR 1.61 MG/DL (0.70-1.30); GLOMERULAR FILTRATION RATE 45.3 (>42); POTASSIUM SERUM 3.7 MEQ/L (3.5-5.1)
== END ==
LOC: M LAB REF 09:48
PROVIDERS: ATTEND Family Medicine
DX: R60.1 Generalized edema (principal)